=== PATIENT | male | born 1950 | race Caucasian/White ===

== ENCOUNTER → 2018-01-30 11:55 | Outpatient (CLI) | payer OTHER, SELFPAY | PROVIDERS: Family Provider Internal Medicine; PCP Internal Medicine | DX: R04.2 Hemoptysis (principal) | CPT/HCPCS: 71250 ==

== ENCOUNTER → 2019-12-16 12:43 | Outpatient (CLI) | payer OTHER, SELFPAY ==
[2019-12-01 13:48] VITALS: BMI 24.2
--- NOTE | 2019-12-16 12:43 | CDU_ITS ---
Reason For Study: Carotid stenosis Rt. Velocities/BP Lt. Velocities/BP Prox CCA 100.8/20 cm/sec. Prox CCA 115.6/24.3 cm/sec. Mid CCA 100.8/23.9 cm/sec. Mid CCA 106.5/24.3 cm/sec. Dist CCA 77.3/23.9 cm/sec. Dist CCA 80.9/24.3 cm/sec. Prox ICA 130.2/35.3 cm/sec. Prox ICA 64/14.6 cm/sec. Mid ICA 152.1/46.2 cm/sec. Mid ICA 99.8/26.2 cm/sec. Dist ICA 80.6/22.3 cm/sec. Dist ICA 86.1/33.5 cm/sec. Rt. ICA/CCA = 1.97. Lt. ICA/CCA = 0.9. Prox ECA 96.9/12.1 cm/sec. Prox ECA 97.4/12.6 cm/sec. Rt. Vert. 50.9/13.5 cm/sec. Lt. Vert. 61.7/15.4 cm/sec. Right Extracranial There is intimal thickening but no significant atherosclerotic plaque noted in the right common carotid artery. There is heterogeneous, irregular atherosclerotic plaque noted in the right internal carotid artery. There is intimal thickening but no significant atherosclerotic plaque noted in the right external carotid artery. Antegrade flow is noted in the right vertebral artery. Left Extracranial There is homogeneous, smooth atherosclerotic plaque noted in the left common carotid artery. There is heterogeneous, irregular atherosclerotic plaque noted in the left internal carotid artery. There is intimal thickening but no significant atherosclerotic plaque noted in the left external carotid artery. Antegrade flow is noted in the left vertebral artery. Procedure Carotid Duplex 28044. Exam performed in department. Interpretation Summary Irregular calcific plaque at the proximal right internal carotid artery with 50 to 69% stenosis. <50% stenosis right external carotid Irregular calcific plaque at the proximal left internal carotid artery with less than 50% stenosis. <50% stenosis left external carotid Patent and antegrade vertebrals bilaterally Ordering Physician: Segun Elias Referring Physician: [facility] Performed By: Daily Sellers RVT and Student
--- NOTE | 2019-12-16 12:43 | ECHOD_ITS ---
Reason For Study: Dyspnea/SOB Procedure This was a 2D Doppler, Color Flow transthoracic echocardiogram. Exam performed in department. Left Ventricle Mildly dilated left ventricle. The estimated ejection fraction is 65 %. Stage 1 diastolic dysfunction. No regional wall motion abnormalities noted. Right Ventricle Mildly dilated right ventricle. Normal systolic function. Atria Normal left atrium. Normal right atrium. Normal atrial septum. Mitral Valve The mitral valve is structurally normal. No prolapse or stenosis seen. Tricuspid Valve Normal tricuspid valve. Unable to estimate RV systolic pressure due to insufficient tricuspid regurgitant envelope. Aortic Valve Trisinus/trileaflet aortic valve. Mild focal aortic valve thickening. There is no aortic stenosis. Pulmonic Valve Normal pulmonic valve. Trivial pulmonic valve insufficiency. Great Vessels Normal aortic root. Normal arch. Normal inferior vena cava. Inferior vena cava collapse with sniff. Pericardium/Pleural No pericardial effusion. MMode/2D Measurements & Calculations LVIDd: 5.3 cm IVSd: 1.0 cm Ao root diam: 3.5 cm LVIDs: 3.1 cm LVPWd: 1.1 cm LA dimension: 3.6 cm RVDd: 3.8 cm FS: 42.2 % LAV(MOD-bp): 42.7 ml LA A4 area: 15.6 cm2 RA A4 area: 13.4 cm2 LAV(MOD-bp) Indexed: 22.2 ml/m2 LAV(MOD-sp2): 39.2 ml LAV(MOD-sp4): 36.5 ml Time Measurements MV dec time: 0.27 sec Doppler Measurements & Calculations MV E max laurent: 53.9 cm/sec Lat Peak E' Laurent: 8.5 cm/sec Med Peak E' Laurent: 8.4 cm/sec MV A max laurent: 68.5 cm/sec E/E' lat: 6.4 E/E' med: 6.4 MV E/A: 0.79 MV V2 max: 83.0 cm/sec MV P1/2t max laurent: 61.9 cm/sec Ao V2 max: 120.6 cm/sec MV max P.8 mmHg MV P1/2t: 119.0 msec Ao max P.8 mmHg MV V2 mean: 40.7 cm/sec MV dec slope: 152.4 cm/sec2 Ao V2 mean: 73.7 cm/sec MV mean P.77 mmHg MVA(P1/2t): 1.8 cm2 Ao mean P.5 mmHg MV V2 VTI: 22.0 cm Ao V2 VTI: 23.0 cm LV V1 max: 94.3 cm/sec PA V2 max: 114.6 cm/sec LV V1 max P.6 mmHg LV V1 mean P.5 mmHg LV V1 mean: 56.3 cm/sec LV V1 VTI: 17.4 cm Interpretation Summary The estimated ejection fraction is 65 %. Mildly dilated left ventricle. Stage 1 diastolic dysfunction. Mildly dilated right ventricle. Unable to estimate RV systolic pressure due to insufficient tricuspid regurgitant envelope. There is no aortic stenosis. There is no comparison study available. Ordering Physician: Segun Elias Referring Physician: Segun Elias Performed By: James Scherer RCS
== END ==
PROVIDERS: Referring Provider Internal Medicine Cardiovascular Disease; Visit Provider Internal Medicine Cardiovascular Disease
DX: R06.00 Dyspnea, unspecified (principal); I65.22 Occlusion and stenosis of left carotid artery; R06.02 Shortness of breath
CPT/HCPCS: 93306; 93880

== ENCOUNTER → 2019-12-22 10:17 | Outpatient (CLI) | payer OTHER, SELFPAY ==
[2019-12-01 13:48] VITALS: BMI 24.2
--- NOTE | 2019-12-22 10:17 | STE_ITS ---
Reason For Study: SOB/DYSPNEA Stress Results Protocol: Mauricio Protocol Maximum Predicted HR: 150 bpm Target HR: 128 bpm % Maximum Predicted HR: 99 % DurationHeart Rate Stage (mm:ss) (bpm) BP BASELINE 67 118/68 STAGE 1 3:00 106 130/56 STAGE 2 3:00 134 130/60 STAGE 3 1:32 148 / RECOVERY 78 130/62 Stress Duration: 7:32 mm:ss Maximum Stress HR: 148 bpm Baseline Echocardiogram Findings The estimated ejection fraction is 65 %. Stress Echo Wall motion Data Resting WM Intermediate WM Stress WM Resting Wall Motion Wall Motion Stress No regional wall motion No regional wall motion abnormalities noted. abnormalities noted. EKG Data The baseline ECG displays normal sinus rhythm. The patient exercised according to the regular Mauricio protocol for a total duration of 7:32. The maximum heart rate attained was 148 beats per minute. This was 98% of maximum predicted heart rate. The patient exercised into stage 3 of the Mauricio protocol. During stress, there were no ST or T wave changes noted to suggest ischemia. No arrhythmias noted. No clinical angina was noted. Interpretation Summary The estimated ejection fraction is 65 %. Normal, adequate, treadmill echocardiogram. Negative for ischemia by EKG and echocardiographic criteria. No anginal symptoms noted. Rare PVCs noted. Appropriate blood pressure response to exercise. Average exercise capacity for age. Test terminated due to attainment target heart rate and dyspnea. Final LVEF is 75%. No complications. Ordering Physician: Segun Elias Referring Physician: Segun Elias Performed By: Swati Sprague RDCS
== END ==
PROVIDERS: Referring Provider Internal Medicine Cardiovascular Disease; Visit Provider Internal Medicine Cardiovascular Disease
DX: R06.00 Dyspnea, unspecified (principal); E78.5 Hyperlipidemia, unspecified
CPT/HCPCS: 93017; 93350

== ENCOUNTER 2021-01-31 07:54 | Day surgery (SDC) | payer OTHER, SELFPAY ==
[2021-01-31 08:25] VITALS: BP 135/70; PULSE 82; RESP 16; TEMP 36.2; O2SAT 98; BMI 22.6
[2021-01-31] MEDS: Lactated Ringers 1,000 ML 100 ML IV (08:29)
--- NOTE | 2021-01-31 08:57 | PCM.HP.BLA ---
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 Is patient in pain?: No Allergies No Known Allergies Allergy (Verified 01/12/21 13:40) Medications multivitamin 1 tab PO DAILY 12/01/19 [History Confirmed 01/12/21] tamsulosin 0.4 mg capsule 0.4 mg PO QHS 12/01/19 [History Confirmed 01/12/21] aspirin 81 mg tablet,delayed release 81 mg PO DAILY 01/12/21 [History Confirmed 01/12/21] atorvastatin 40 mg tablet 40 mg PO DAILY 01/12/21 [History Confirmed 01/12/21] PFSH Medical History Anemia, mild Atonic bladder BPH (benign prostatic hyperplasia) Carotid artery stenosis Dyspnea Hemoptysis Hepatic cyst Hyperlipidemia Surgical History History of colonoscopy (~2007) History of foot surgery Family History Father Heart disease Mother Heart disease Brother CAD (coronary artery disease), Onset Age: 40 stent placement Social History Smoking Status: Former smoker how long ago did patient quit smokin years ago alcohol intake: current alcohol intake frequency: a few times a week Alcohol type: beer substance use type: does not use caffeine: Yes Type: coffee Number of servings: 1 what type of physical activity do you participate in: walking frequency: daily duration: 30-45 minutes/day HPI HPI HPI: WELLINGTON CHAVARRIA, is a 70 M who presents to the office today for colonoscopy. The patient reports his last colonoscopy was in 2007 and was normal. He has no abdominal pain or blood in his stool. He has no family history of colon cancer. ROS General General: No weight change, appetite, fatigue, colon cancer, breast cancer or weakness HEENT HEENT: No difficulty swallowing, eye injury, eye surgery, swollen glands or hoarseness Endo Endocrine: No thyroid disease, diabetes mellitus, thyroid cancer, Hair loss, heat intolerance or cold intolerance Skin Skin: No rash or changing moles Breast Breast: No left breast lump, right breast lump, nipple discharge, breast pain, abnormal mammogram, abnormal US or breast enlargement Musc Musculoskeletal: No back problems, arthritis, rheumatoid arthritis, gout or joint pain Cardio Cardiovascular: No murmur, pacemaker, heart disease, atrial fibrillation, high blood pressure, heart attack, heart stent, palpitations, shortness of breat with exertion or chest pain Psych Psychiatric: No depression, anxiety or hearing voices Resp Respiratory: No shortness of breath, No sleep apnea, No cough, No COPD, No asthma, No emphysema and No wheezing Gastro Gastrointestinal: No abdominal pain, No nausea or vomiting, No diarrhea, No constipation, No blood in stool, No acid reflux, No hemorrhoids, No ulcers, No gallbladder problem and No black,tarry stools Mariano Hematologic: No blood thinners, No blood disorders, No bleeding, No anemia and No blood clots Neuro Neurologic: No system reviewed and no additional complaints, except as documented, No as per HPI, No abnormal gait, No abnormal hearing, No abnormal movements, No abnormal speech, No behavioral changes, No burning sensations, No confusion, No convulsions, No disequilibrium, No dizziness, No localized weakness, No frequent falls, No headache(s), No lack of coordination, No loss of vision, No memory loss, No numbness, No other visual disturbances, No radicular pain, No restless legs, No sensory deficit, No syncope, No tingling, No tremor(s), No weakness and No other Exam Const General: cooperative Orientation: alert and oriented x3 HENMT Head: normal to inspection Neck Neck: normal visual inspection and full ROM Chest Chest palpation & inspection: normal inspection of the chest Resp Effort & Inspection: normal respiratory effort Auscultation: clear to auscultation bilaterally Cardio Rate: regular rate Rhythm: regular rhythm GI Inspection: non-distended Palpation: soft and nontender Skin General: no rashes or lesions noted Neuro General: patient alert and patient oriented x3 Extrem General: full ROM Psych Appearance: grossly normal Mental Status: mental status grossly normal Assessment and Plan Assessment and Plan (1) Screen for colon cancer: Status: Acute Orders: Orders: Colonoscopy Today Plan - Dr. Khurram Alfaro MD: Patient is due for screening colonoscopy. [facility]. I explained endoscopy in detail to the patient. I explained the risks including but not limited to stroke or heart attack with anesthesia, perforation of the GI tract, bleeding, infection. I explained that any of these could necessitate further emergency surgery. The patient understands and all questions were answered sufficiently. The patient wishes to proceed with procedure. Khurram Alfaro MD Pager: [facility] [address] [place] [address], [address] [place] [address] Office: I have re-examined the patient. There are no clinical changes since date of exam.
[2021-01-31 09:30] VITALS: BP 101/56; BP 135/70; PULSE 71; RESP 14; TEMP 36.2; O2SAT 99
--- NOTE | 2021-01-31 09:30 | OP.COLON_ITS ---
Patient Name: Amado Gallardo Procedure Date: 01/31/2021 8:59 AM Date of : 1950 Age: 70 Procedure: Colonoscopy Indications: Screening for colorectal malignant neoplasm Providers: Khurram Alfaro MD Medicines: Monitored Anesthesia Care Patient Profile: This is a 70 year old male. Refer to note in patient chart for documentation of history and physical. Last Colonoscopy: 10 years ago. Complications: No immediate complications. Procedure: Pre-Anesthesia Assessment: - Prior to the procedure, a History and Physical was performed, and patient medications and allergies were reviewed. The patient's tolerance of previous anesthesia was also reviewed. The risks and benefits of the procedure and the sedation options and risks were discussed with the patient. All questions were answered, and informed consent was obtained. Prior Anticoagulants: The patient has taken no previous anticoagulant or antiplatelet agents. After reviewing the risks and benefits, the patient was deemed in satisfactory condition to undergo the procedure. After I obtained informed consent, the scope was passed under direct vision. Throughout the procedure, the patient's blood pressure, pulse, and oxygen saturations were monitored continuously. The pediatric colonoscope was introduced through the anus and advanced to the cecum, identified by appendiceal orifice and ileocecal valve. The colonoscopy was performed without difficulty. The patient tolerated the procedure well. The quality of the bowel preparation was good. Scope In: 9:14:45 AM Scope Withdrawal Time 0 hours 6 minutes 6 seconds Scope Out: 9:27:03 AM Total Procedure Duration Time 0 hours 12 minutes 18 seconds Findings: The entire examined colon appeared normal on direct and retroflexion views. Impression: - The entire examined colon is normal on direct and retroflexion views. - No specimens collected. Recommendation: - Discharge patient to home. - Resume previous diet. - Continue present medications. - Repeat colonoscopy is not recommended due to current age (66 years or older) for screening purposes. Procedure Code(s): --- Professional --- G0121, Colorectal cancer screening; colonoscopy on individual not meeting criteria for high risk Diagnosis Code(s): --- Professional --- Z12.11, Encounter for screening for malignant neoplasm of colon CPT copyright 2017 [employer]. All rights reserved. The codes documented in this report are preliminary and upon feed adviser review may be revised to meet current compliance requirements. Khurram Alfaro MD 01/31/2021 9:29:20 AM This report has been signed electronically. Number of Addenda: 0 Note Initiated On: 01/31/2021 8:59 AM
--- NOTE | 2021-01-31 09:30 | OP.CCLET_ITS ---
01/31/2021 [facility] Re : Colonoscopy procedure for Amado jung [facility] This procedure was performed on Sunday, January 31, 2021. My impressions and recommendations are as follows: Impressions : - The entire examined colon is normal on direct and retroflexion views. - No specimens collected. Recommendations : - Discharge patient to home. - Resume previous diet. - Continue present medications. - Repeat colonoscopy is not recommended due to current age (66 years or older) for screening purposes. My findings are described in the full procedure note, which is enclosed. If I can be of further assistance, please feel free to contact me at Doctor phone number(s): , Work: . Sincerely, Khurram Alfaro MD 01/31/2021 9:29:20 AM This report has been signed electronically.
[2021-01-31 09:34] VITALS: BP 102/60; BP 135/70; PULSE 71; RESP 16; O2SAT 96
[2021-01-31 09:41] VITALS: BP 100/52; BP 135/70; PULSE 74; RESP 16; O2SAT 99
[2021-01-31 09:46] VITALS: BP 110/63; BP 135/70; PULSE 67; RESP 16; TEMP 36.8; O2SAT 94
[2021-01-31 10:04] VITALS: BP 135/70
== END 2021-01-31 10:12 | disposition home or self-care (01) ==
LOC: EN 07:55 → AC 07:56
PROVIDERS: Visit Provider Surgery
PROC: 0DJD8ZZ Inspection of Lower Intestinal Tract, Via Natural or Artificial Opening Endoscopic (ICD-10-PCS; CPT 45378; principal; 2021-01-31 08:55)
DX: Z12.11 Encounter for screening for malignant neoplasm of colon (principal); E78.5 Hyperlipidemia, unspecified; Z79.899 Other long term (current) drug therapy; Z87.891 Personal history of nicotine dependence
CPT/HCPCS: 45378; J7120; J2405

== ENCOUNTER 2021-07-10 09:09 | Outpatient (CLI) | payer OTHER, SELFPAY ==
[2021-07-10 10:24] LABS: Erythrocyte Sedimentation Rate < 1 mm/hr (0-20)
--- NOTE | 2021-07-10 10:28 | PFTCOMP ---
COMPLETE PULMONARY FUNCTION TEST INTERPRETATION Brief HPI: Patient is a 70 year old male, currently under the care of myself, who presents to [facility] for complete pulmonary function tests secondary to diagnosis of hemoptysis. Respiratory therapist reports good effort and reproducible results. Interpretation: Forced expiration spirometry shows no large airways obstructive ventilatory defect with an FEV1 of 92% predicted. There is no significant bronchodilator response by strict ATS criteria. Spirograms are of good quality and plateau normally. The respiratory flow volume loop shows a normal pattern. Lung volumes by body plethysmography show a normal total lung capacity at 5.92 L, 91% predicted. All other lung volumes are within normal limits. Diffusion capacity by carbon monoxide is normal at 105% predicted. The airway resistance is normal. No previous pulmonary function tests were available for review. Impression: These pulmonary function tests are within normal limits
[2021-07-10 10:54] LABS: CRP < 2.90 mg/L (0.0-3.0); Rheumatoid Factor < 10.0 IU/mL (<15)
[2021-07-11 17:03] LABS: ANTINUCLEAR ANTIBODIES DIRECT Negative (Negative)
[2021-07-11 21:07] LABS: Cytoplasmic Ab (C-ANCA) <1:20 titer (Neg:<1:20)
[2021-07-12 14:16] LABS: CCP IgG Antibodies 5 units (0-19); Perinuclear Ab (P-ANCA) <1:20 titer (Neg:<1:20)
== END 2021-07-10 23:59 | disposition home or self-care (01) ==
PROVIDERS: Referring Provider Internal Medicine Critical Care Medicine; Visit Provider Internal Medicine Critical Care Medicine
DX: R04.2 Hemoptysis (principal)
CPT/HCPCS: 36415; 85652; 86038; 86140; 86200; 86225; 86235; 86256; 86431; 94060; 94726; 94729

== ENCOUNTER → 2022-10-02 | Outpatient (CLI) | payer OTHER, SELFPAY ==
--- NOTE | 2022-10-02 14:05 | CT_ITS ---
INDICATION: CALCIFIED GRANULOMAS EXAMINATION: CT CHEST WITHOUT CONTRAST - CT Chest W/O Contrast Injection TECHNIQUE: Helically acquired images were obtained of the chest. A radiation dose optimization technique was used for this scan. IV Contrast dosage and agent: None. COMPARISON: None. FINDINGS: LUNGS, PLEURA AND LARGE AIRWAYS: Interval resolution of the previously seen areas of groundglass attenuation. New area of groundglass attenuation with developing consolidation in the posterior periphery of the right lower lobe. Associated 6 mm nodule in the periphery of this groundglass attenuation, axial image 64. Questionable trace groundglass attenuation posterolateral periphery of the left lower lobe, axial image 65. 2 mm nodule left lower lobe, axial image 68, unchanged compared to prior exam. 2 mm nodule right middle lobe, axial image 81. 2 mm nodule right middle lobe, axial image 83. Calcified granuloma right upper lobe. Several small areas of hyperlucency/cystic changes; left lower lobe axial image 63 left upper lobe, axial image 36. THYROID: No thyroid lesions. HEART AND PERICARDIUM: Heart size is normal. No pericardial effusion. VESSELS: Thoracic aorta is ectatic with 4 cm diameter ascending thoracic aorta. Moderate coronary calcifications and/or stents MEDIASTINUM AND ELBERT: No mediastinal or hilar adenopathy. Esophagus is unremarkable. No hiatal hernia. UPPER ABDOMEN: No acute pathology. 2.4 cm cyst left hepatic lobe and 9 mm cyst right hepatic lobe. Several tiny stones are seen in the neck of the gallbladder. Nonobstructing calcified 2 mm stone upper pole right kidney. Several calcifications in the spleen suggesting prior granulomatous infection. BONES: No suspicious lytic or blastic abnormality. CT/Chest without Contrast IMPRESSION: Interval resolution of previously seen groundglass opacities. New large area of groundglass opacity and associated developing consolidation, and a 6 mm nodule posterior periphery right lower lobe. This is favored to represent infectious etiology. Short-term follow-up imaging to ensure resolution is recommended in 3 months. Questionable groundglass opacity periphery left lower lobe. Few small, less than 2 cm in diameter pulmonary lucencies as above. Benign pulmonary nodules which no follow-up is recommended. 4 cm ectasia ascending thoracic aorta. Cholelithiasis without cholecystitis. Nonobstructing stone superior pole right kidney. Stigmata of prior granulomatous fraction. Electronically Signed: Oscar Mckinley DO at 22:05 EDT ,
== END | disposition home or self-care (01) ==
LOC: CT 14:02
DX: I77.810 Thoracic aortic ectasia (principal); K80.20 Calculus of gallbladder without cholecystitis without obstruction; N20.0 Calculus of kidney; R91.1 Solitary pulmonary nodule
CPT/HCPCS: 71250

== ENCOUNTER → 2023-01-26 | Outpatient (CLI) | payer OTHER, SELFPAY ==
--- NOTE | 2023-01-26 09:48 | CT_ITS ---
INDICATION: Hemoptysis EXAMINATION: CT CHEST WITHOUT CONTRAST - CT Chest W/O Contrast Injection TECHNIQUE: Helically acquired images were obtained of the chest. A radiation dose optimization technique was used for this scan. IV Contrast dosage and agent: None. COMPARISON: 10/02/2022 FINDINGS: LUNGS, PLEURA AND LARGE AIRWAYS: Lung windows show the lungs to be normally expanded. Stable 2 mm noncalcified nodules in the left lower lobe on axial image 70, and right middle lobe on axial images 78 and 80. Stable 4 mm noncalcified nodule in the right lower lobe on axial image 67. No suspicious new noncalcified mass or nodule. Previous airspace opacifications in the lingula and right lower lobe have improved but not completely resolved. No new organized infiltrate or effusion. THYROID: No thyroid lesions. HEART AND PERICARDIUM: Heart size is normal. No pericardial effusion. CORONARY ARTERIES: Coronary artery calcification is seen. VESSELS: Thoracic aorta is not dilated. MEDIASTINUM AND ELBERT: No suspicious mediastinal or hilar adenopathy. Esophagus is unremarkable. No hiatal hernia. UPPER ABDOMEN: Limited cuts through the upper abdomen show simple hepatic cysts. There is a nonobstructing right renal stone BONES: No suspicious lytic or blastic abnormality. Bony structures show degenerative change CT/Chest without Contrast IMPRESSION: Stable noncalcified nodules in the left lower lobe, right lower lobe, and right middle lobe. No interval change since 10/02/2022. Another six-month follow-up is recommended to assess stability. Previous described air space opacifications in the lingula and right lower lobe have improved but not completely resolved. Continued follow-up recommended to show complete resolution. No suspicious adenopathy Degenerative bony changes Electronically Signed: Emigdio Shaw MD at 10:59 EDT ,
== END | disposition home or self-care (01) ==
LOC: CT 09:33
PROVIDERS: Referring Provider Internal Medicine; Visit Provider Internal Medicine
DX: R04.2 Hemoptysis (principal)
CPT/HCPCS: 71250

== ENCOUNTER 2023-03-11 04:41 | Emergency (ER) | payer MEDICARE, SELFPAY ==
[2023-03-11 04:42] VITALS: BP 153/81; PULSE 83; RESP 16; TEMP 36.4; O2SAT 94; BMI 22.1
--- NOTE | 2023-03-11 05:01 | CT_ITS ---
EXAM: CT ANGIOGRAPHY CHEST, ABDOMEN AND PELVIS WITH INTRAVENOUS CONTRAST CLINICAL INDICATION: abd pain abd pain TECHNIQUE: Helically acquired angiography images were obtained of the chest, abdomen and pelvis with intravenous contrast. This CT exam was performed using one or more of the following dose reduction techniques: automated exposure control, adjustment of the mA and/or kV according to patient size, and/or use of iterative reconstruction technique. MIP reconstructed images were created and reviewed. CONTRAST: IV 100mL Isovue-370 RADIATION DOSE: CTDIvol = 4.48 mGy, DLP = 391.42 mGy-cm COMPARISON: CT scan chest 01/26/2023. FINDINGS: VASCULATURE: AORTA: There is mild atherosclerotic calcification of the thoracic aorta. There is mild atherosclerotic calcification of the abdominal aorta. Normal in caliber. No dissection. PULMONARY ARTERIES: Unremarkable. Normal in caliber. No obvious central pulmonary embolism although this study was not performed with the pulmonary embolism protocol. GREAT VESSELS OF AORTIC ARCH: Unremarkable. Normal in caliber. No dissection. CELIAC TRUNK AND MESENTERIC ARTERIES: No acute findings. No occlusion or significant stenosis. No dissection. RENAL ARTERIES: No acute findings. No occlusion or significant stenosis. No dissection. ILIAC ARTERIES: No acute findings. No occlusion or significant stenosis. No dissection. CHEST: LUNGS AND PLEURAL SPACES: There is atelectasis in the posterior lungs and lung bases, asymmetrically more prominent in the right lower lobe. Active right lower lobe pneumonia is not excluded entirely. There is a calcified pulmonary granuloma in the right upper lobe. No mass. No pleural effusion or thickening. HEART: There are coronary artery calcifications. Heart size is normal. No pericardial effusion. MEDIASTINUM: Unremarkable. No mediastinal or hilar adenopathy. Esophagus is unremarkable. No hiatal hernia. THYROID: Unremarkable. No thyroid lesions. ABDOMEN: LIVER: There are cysts in the right and left lobes of the liver. There is decreased attenuation of the liver consistent with fatty infiltration. GALLBLADDER AND BILE DUCTS: There are small calcified gallstones. No gallbladder distention or wall edema. No intra- or extrahepatic biliary ductal dilation. PANCREAS: Unremarkable. No focal cystic or solid mass. SPLEEN: Unremarkable. Normal size without focal cystic or solid mass. ADRENALS: Unremarkable. No nodules. KIDNEYS AND URETERS: There are small areas of cortical scarring in the right kidney. There is a 3 mm nonobstructive right renal calculus. There is mild hydronephrosis of the left kidney and there is left hydroureter. There is no demonstrated left urinary calculus. STOMACH AND BOWEL: There are colonic diverticula. There is no evidence for acute diverticulitis. No stomach or bowel distention. PELVIS: APPENDIX: No evidence of acute appendicitis. BLADDER: Urinary bladder contained 560 mL of urine at the time this exam. REPRODUCTIVE: Unremarkable as visualized. No mass. CHEST, ABDOMEN and PELVIS: INTRAPERITONEAL SPACE: Unremarkable. No ascites or other fluid collection. No free air. BONES/JOINTS: There are multilevel degenerative changes in the visualized spine. No suspicious lytic or blastic abnormality. SOFT TISSUES: Unremarkable. No discrete abdominal or pelvic wall hernia. LYMPH NODES: Unremarkable. No enlarged lymph nodes. CT/CTA Chst, Abd, Pel W and/or WO IMPRESSION: 1. No evidence for pulmonary embolism, aortic aneurysm, or aortic dissection. 2. No evidence for stenosis or occlusion of major abdominal or pelvic arteries. 3. Atelectasis in the posterior lung bases. Cannot exclude active right lower lobe pneumonia. 4. Mild hydronephrosis of left kidney without demonstrated left urinary calculus. Potential etiologies would include recent passage of a left ureteral calculus, pyelonephritis, vesicoureteral reflux, or left ureteral obstruction of indeterminate etiology. 5. Small nonobstructive right renal calculus. 6. Coronary artery atherosclerosis. 7. Gallstones. 8. Fatty liver. 9. Colonic diverticulosis without evidence for acute diverticulitis. Electronically Signed: Edvin Pak MD at 6:23 EDT ,
--- NOTE | 2023-03-11 05:03 | EKG12_ITS ---
Test Reason : ABD PAIN Blood Pressure : / mmHG Vent. Rate : 085 BPM Atrial Rate : 085 BPM P-R Int : 180 ms QRS Dur : 098 ms QT Int : 360 ms P-R-T Axes : 035 -02 020 degrees QTc Int : 428 ms Sinus rhythm with occasional Premature ventricular complexes Otherwise normal ECG Confirmed by AKOSUA AVINA, GLORIA ([id number]), continuity editor YOUNG REYES ([id number]) on 03/14/2023 11:30:17 AM Referred By: Confirmed By:GLORIA SOUTH MD
[2023-03-11] MEDS: 0.9% Normal Saline (1000mL) 1,000 ML 999 ML IV (05:06)
[2023-03-11] MEDS: Ondansetron 4 MG/2 ML Vial IV (05:06)
[2023-03-11] MEDS: Morphine 4 MG/ML Syringe IV (05:10)
[2023-03-11 05:14] VITALS: BP 130/67; PULSE 86; RESP 20; TEMP 36.4; O2SAT 95
[2023-03-11 05:17] LABS: Absolute Lymphocyte Count 2.51 X10^3/uL (0.83-4.51); Absolute Neutrophil Count 3.6 X10^3/uL (2.0-7.7); Basophil# 0.12 X10^3/uL; Basophil% 1.5 % (0-1); Eosinophils% 3.8 % (0-5); Hematocrit 32.8 % (40-54); Hemoglobin 10.8 g/dL (13.0-16.5); Lymphocyte # 2.51 X10^3/ul (0.83-4.51); Lymphocyte % 31.9 % (19-41); Mean Corp Hgb Conc 32.9 g/dL (32-36); Mean Corpuscular Hgb 33.8 pg (27.0-32.0); Mean Corpuscular Volume 102.5 fL (80-94); Mean Platelet Vol. 9.4 fl (6.2-12.0); Monocyte# 1.33 X10^3/uL; Monocyte% 16.9 % (0-10); NRBC Flagged by Analyzer 0.3 % (0-5); Neutrophil # 3.55 X10^3/uL (2.7-7.7); Neutrophil % 45.3 % (47-70); Platelet Count 401 K/mm3 (150-450); RBC Distribution Width CV 16.7 % (11.6-14.6); RBC Distribution Width SD 61.7 fl (35.1-43.9); White Blood Count 7.9 K/mm3 (4.4-11.0)
[2023-03-11 05:19] VITALS: O2SAT 87; O2SAT 94
[2023-03-11 05:26] LABS: Prothrombin Time (Protime)PT. 12.9 SECONDS (11.7-14.9)
[2023-03-11 05:36] LABS: AST(SGOT) 17 U/L (15-37); Alanine Aminotransfer ALT/SGPT 25 U/L (16-61); Albumin, Serum 3.9 g/dL (3.2-5.0); Alkaline Phosphatase 62 U/L (45-117); Anion Gap 5 (5-15); BUN 18 mg/dL (7-18); BUN/Creat Ratio 24.3 RATIO (10-20); Bilirubin, Direct 0.32 mg/dL (0.00-0.30); Calcium,Total 8.6 mg/dL (8.5-10.1); Chloride 109 mmol/L (98-107); Creatinine, Serum 0.74 mg/dL (0.70-1.30); EST Glomerular Filtration Rate 110 mL/min (>60); Est Glom Filt Rate - Afr Amer 133 mL/min (>60); Estimated Creatinine Clearance 65.14 ml/min; Globulin 2.8 g/dL (2.2-4.2); Glucose 98 mg/dL (74-106); Lipase 37 U/L (13-75); Potassium 4.1 mmol/L (3.5-5.1); Protein, Total 6.7 g/dL (6.4-8.2); Sodium Level 143 mmol/L (136-145); Troponin-I HS 6 pg/mL (3.0-78.0)
[2023-03-11 05:45] LABS: Lactic Acid 0.7 mmol/L (0.4-1.9)
--- NOTE | 2023-03-11 05:46 | EX.ED.DYSGE1 ---
HPI History of Present Illness Chief Complaint: Abd Pain Informant: patient and spouse/S.O. Narrative Narrative: Patient is a 72-year-old male with past medical history of hyperlipidemia as well as underlying lung disorder causing hemoptysis. He states that he went to bed feeling normal then awoke from sleep around 3:30-4:00 in the morning and noticed just a mild amount of midepigastric abdominal pain. He states that as time passed the pain grew more and more intense and he describes it as sharp and stabbing in nature. He denies any recent trauma or excessive activity. He states that there is no radiation of the pain and he denies any nausea or vomiting associated with this. He states he was unsure if this could potentially be cardiac event and with concern for this comes in for evaluation. [facility] Medical History Anemia, mild Atonic bladder BPH (benign prostatic hyperplasia) Cardiology follow-up encounter Carotid artery stenosis Dyspnea Former smoker Hemoptysis Hepatic cyst High cholesterol History of echocardiogram Hyperlipidemia Prostate disease Wears glasses Home Medications tamsulosin 0.4 mg capsule 0.4 mg PO QHS 12/01/19 [History Last Taken Unknown] atorvastatin 40 mg tablet 40 mg PO DAILY 01/12/21 [History Last Taken Unknown] Allergy/AdvReac Type Severity Reaction Status Date / Time No Known Allergies Allergy Verified 12/05/21 09:40 Family History Father Heart disease Mother Heart disease Brother CAD (coronary artery disease), Onset Age: 40 stent placement Surgical History History of colonoscopy (~2007) History of foot surgery Social History Smoking Status: Former smoker how long ago did patient quit smokin years ago alcohol intake: current alcohol intake frequency: a few times a week Alcohol type: beer substance use type: does not use caffeine: Yes Type: coffee Number of servings: 1 what type of physical activity do you participate in: walking frequency: daily duration: 30-45 minutes/day ROS ROS ED Constitutional Constitutional ED: Denies chills or fever(s) Eyes Eyes: Denies change in vision ENT ENT ED: Denies sore throat Cardiovascular Cardiovascular: Denies chest pain Respiratory/Chest Respiratory/Chest: Reports cough; Denies dyspnea Gastrointestinal Gastrointestinal: Reports abdominal pain; Denies diarrhea, nausea or vomiting Genitourinary Genitourinary ED: Denies dysuria Musculoskeletal Musculoskeletal: Denies back pain or myalgias Integumentary Denies rash Neurologic Neurologic: Denies headache(s) Hematologic/Lymphatic Hematologic/Lymphatic: Denies easy bleeding or easy bruising EXAM Physical Exam Const Vital Signs: 03/11/23 04:42 03/11/23 05:14 03/11/23 05:19 Temperature 97.6 F L 97.6 F L Temperature Source Oral Oral Pulse Rate 83 86 Respiratory Rate 16 20 H Blood Pressure 153/81 H 130/67 H Blood Pressure Mean 105 88 Pulse Ox 94 95 87 Oxygen Delivery Method Room Air Room Air Room Air Oxygen Flow Rate (L/min) 03/11/23 05:19 03/11/23 06:00 Temperature 98 F Temperature Source Oral Pulse Rate 77 Respiratory Rate 16 Blood Pressure 143/72 H Blood Pressure Mean 95 Pulse Ox 94 93 Oxygen Delivery Method Nasal Cannula Nasal Cannula Oxygen Flow Rate (L/min) 2 2 Positive well nourished and well developed General Appearance ED: well developed; Negative for pallor HEENT HEENT Narrative: Normocephalic atraumatic Eyes PERRL and EOMs intact bilaterally General Eye ED: Negative for scleral icterus Neck supple and no JVD Neck Narrative: No nuchal rigidity or meningeal signs noted Chest Wall palpation of chest normal Chest Narrative: No bony deformity or crepitance Resp normal respiratory effort and clear to auscultation bilaterally Cardio regular rate and regular rhythm Rate: other Other Details: Radial and carotid pulses equal and symmetric No murmurs rubs or gallops GI non-distended GI Narrative: Abdomen is soft and nondistended with normal active bowel sounds. There is just faint pain present in the midepigastric region without voluntary guarding or rigidity. No hernia noted. No pulsatile mass or fluid wave. Auscultation: normoactive bowel sounds Palpation: soft Back/Spine no CVA tenderness Extremity normal to inspection Extremity Narrative: No asymmetric edema no pitting edema negative Homans' sign bilaterally Neuro oriented x3, CN's II-XII intact bilaterally and no sensory deficits noted Sensorium / Orientation: alert Motor Exam: strength 5/5 throughout Psych mental status grossly normal Skin no rashes or lesions noted General Skin Exam: Negative for jaundice or pallor MDM MDM MDM Narrative Medical decision making narrative: Patient presented to the ER mildly hypertensive but otherwise with stable vitals. He reported sudden onset of midepigastric pain but on palpation there is minimal reproduction of the pain. With concern that this was pain at proportion and could be related to mesenteric ischemia or potential aortic dissection I did elect to perform basic laboratory studies and a CTA of the chest abdomen pelvis. There is also concern that as the pain is in the upper abdomen/lower chest this could be acute coronary syndrome or even potentially biliary colic or pancreatitis. Labs revealed no clinically significant findings. Patient's troponin was normal at a value of 6 and EKG was sinus rhythm going against acute coronary syndrome. Patient's lipase was normal and CT scan did not reveal any inflammatory changes of the pancreas going against pancreatitis. Patient CTA did not reveal any type of dissection or obstruction. Lactic acid was normal to going against ischemic changes. There is incidental note of cholelithiasis but no secondary changes to suggest acute cholecystitis. The patient did have mild elevation to his direct and total bilirubin which could indicate that this was potential biliary colic. However this time the patient is pain-free vitals are stable and therefore there is no signs of secondary infection or cardiac event or vascular issue he can be discharged home and follow-up with his family doctor on outpatient basis to further assess the cause of his abdominal pain and new founded cholelithiasis. History & Record Review Discussion w/independent historian: Patient and Significant other Lab Data Attestation: I reviewed the patient's lab results. Labs: Laboratory Results - last 24 hr 03/11/23 03/11/23 03/11/23 04:48 05:15 06:22 WBC 7.9 RBC 3.20 L Hgb 10.8 L Hct 32.8 L MCV 102.5 H MCH 33.8 H MCHC 32.9 RDW Std Deviation 61.7 H RDW Coeff of Jose 16.7 H Plt Count 401 MPV 9.4 Immature Gran % (Auto) 0.600 Neut % (Auto) 45.3 L Lymph % (Auto) 31.9 [place] % (Auto) 16.9 H Eos % (Auto) 3.8 Baso % (Auto) 1.5 H Absolute Neuts (auto) 3.6 Absolute Lymphs (auto) 2.51 Nucleated RBC % 0.3 PT 12.9 INR 1.0 APTT 31.0 Sodium 143 Potassium 4.1 Chloride 109 H Carbon Dioxide 29.0 Anion Gap 5 BUN 18 Creatinine 0.74 Estim Creat Clear Calc 65.14 Est GFR (MDRD) Af Amer 133 Est GFR (MDRD) Non-Af 110 BUN/Creatinine Ratio 24.3 H Glucose 98 Lactic Acid 0.7 Calcium 8.6 Total Bilirubin 1.10 H Direct Bilirubin 0.32 H AST 17 ALT 25 Alkaline Phosphatase 62 Troponin I High Sens 6 Total Protein 6.7 Albumin 3.9 Globulin 2.8 Lipase 37 Urine Color Yellow Urine Clarity Clear Urine pH 7.0 Ur Specific Ripley 1.010 Urine Protein Negative Urine Glucose (UA) Normal Urine Ketones Negative Urine Occult Blood Negative Urine Nitrite Negative Urine Bilirubin Negative Urine Urobilinogen Normal Ur Leukocyte Esterase Negative Urine RBC 0 SEEN Urine WBC 0 SEEN Ur Squamous Epith Cells 0 SEEN Urine Bacteria 0 SEEN Urine Mucus 0 SEEN Radiography Diagnostic Testing: Clinical Impression(s) from Imaging Studies Chest/Abdomen/Pelvis CTA 03/11/23 05:01 IMPRESSION: 1. No evidence for pulmonary embolism, aortic aneurysm, or aortic dissection. 2. No evidence for stenosis or occlusion of major abdominal or pelvic arteries. 3. Atelectasis in the posterior lung bases. Cannot exclude active right lower lobe pneumonia. 4. Mild hydronephrosis of left kidney without demonstrated left urinary calculus. Potential etiologies would include recent passage of a left ureteral calculus, pyelonephritis, vesicoureteral reflux, or left ureteral obstruction of indeterminate etiology. 5. Small nonobstructive right renal calculus. 6. Coronary artery atherosclerosis. 7. Gallstones. 8. Fatty liver. 9. Colonic diverticulosis without evidence for acute diverticulitis. Electronically Signed: Edvin Pak MD at 6:23 EDT , Discharge Plan Triage Chief Complaint: Abd Pain ED Provider: Jean Claude Howell Dx/Rx/DC Orders Clinical Impression: Nonspecific abdominal pain, Hydronephrosis of left kidney, Cholelithiasis Instructions: ED Abdominal Pain Gallstone Poss Prescriptions: No Action tamsulosin 0.4 mg capsule 0.4 mg PO QHS atorvastatin 40 mg tablet 40 mg PO DAILY Primary Care Provider: Hospital,MD Referrals: Hospital,MD [Primary Care Provider] - Activity Restrictions/Additional Instructions: Please follow-up with your family doctor to discuss obtaining outpatient gallbladder ultrasound and/or HIDA scan. Your CT scan today did show a few small gallbladder stones and there is slight elevation to your total and direct bilirubin which could be related to potential gallstone or gallbladder disease. Please avoid greasy fatty foods as this could stimulate gallbladder irritation. If you have worsening of symptoms or any further concerns please return to the ER for repeat evaluation Disposition Disposition: Home, Self Care
[2023-03-11 06:00] VITALS: BP 143/72; PULSE 77; RESP 16; TEMP 36.6; O2SAT 93
[2023-03-11 06:26] LABS: Bacteria 0 SEEN /hpf (None Seen); Mucous, Urine 0 SEEN /hpf (<or=2+); Red Blood Cells-Urine 0 SEEN /hpf (0-5); Squamous Epithelial Cells - UA 0 SEEN /hpf (0-5); White Blood Cells 0 SEEN /hpf (0-5)
[2023-03-11 06:35] LABS: Color, Urine Yellow (Yellow); Glucose, Dipstick Normal (Normal); Ketone-Dipstick Negative (Negative); Leukocyte Esterase-Dipstick Negative /ul (Negative); Nitrite-Dipstick Negative (Negative); Occult Blood-Urine Negative /ul (Negative); Protein-Dipstick Negative (Negative); Urine Bilirubin Dipstick Negative (Negative); Urine Clarity Clear (Clear); Urine Urobilinogen Normal (Normal)
[2023-03-11 07:20] VITALS: BP 128/78; PULSE 64; RESP 14; TEMP 36.4; O2SAT 99
== END 2023-03-11 07:20 | disposition home or self-care (01) ==
PROVIDERS: Emergency Provider Emergency Medicine; Visit Provider Emergency Medicine
DX: R10.13 Epigastric pain (principal); N13.30 Unspecified hydronephrosis; K80.20 Calculus of gallbladder without cholecystitis without obstruction; E78.00 Pure hypercholesterolemia, unspecified; N40.0 Benign prostatic hyperplasia without lower urinary tract symptoms; Z79.899 Other long term (current) drug therapy; Z87.891 Personal history of nicotine dependence
CPT/HCPCS: 71275; 74174; 80048; 80076; 81001; 83605; 83690; 84484; 85025; 85610; 85730; 93005; 96361; 96374; 96375; 99283; J7030; Q9967; A4216; J2405

== ENCOUNTER → 2023-05-10 | Outpatient (CLI) | payer OTHER, SELFPAY ==
--- NOTE | 2023-05-12 15:57 | STRESSREP_ITS ---
Stress Test Report Date: 05/10/2023 Procedure: Exercise tolerance test/imaging study Indications: CAD Consent: Per the patient Procedure: The patient exercised on a Mauricio protocol for 6 minutes achieving a peak heart rate of 150 bpm (102% predicted maximal heart rate) with a peak blood pressure 140/68 mmHg and a peak MET capacity of 7 METs. The baseline ECG demonstrated normal sinus rhythm. The peak exercise ECG demonstrated [no significant ischemic changes]. EKG during recovery revealed no significant ischemic changes [There were no cardiac dysrhythmias pretest, during exercise, or recovery]. The functional capacity was considered normal for age. There was [no complaint of chest discomfort during exercise or recovery]. The examination was discontinued secondary to dyspnea. Impression: 1. Technically adequate (percent predicted maximal heart rate greater than 85%) exercise tolerance test 2. Stress test is negative for exercise-induced EKG changes of ischemia 3. The test test is negative for exercise-induced chest pain 4. Functional capacity is normal for age 5. Nuclear images pending Myocardial perfusion imaging study: Technique: The patient was injected with [] mCi of technetium 99m Cardiolite and subsequently rest SPECT Cardiolite nuclear imaging was obtained in the horizontal long, vertical long, and short axis views. The patient exercised on a Mauricio protocol. Please see above for details. The patient was injected with [] mCi of technetium 99m Cardiolite and subsequently stress SPECT Cardiolite nuclear imaging was obtained in the horizontal long, vertical long, and short axis views. A gated Cardiolite study at peak stress was obtained. Interpretation: Rest and stress SPECT Cardiolite nuclear imaging status post realignment, normalization, and attenuation correction, demonstrates [no evidence of significant ischemia or infarction]. The gated Cardiolite study demonstrates [no significant regional wall motion abnormalities]. The reported LVEF is 70%. Impression: 1. There is no evidence of significant ischemia or infarction. 2. The gated Cardiolite study reports an LVEF of 70%. This note was generated with DRESSBOOMation software. It may contain incorrect words, spelling, and punctuation that were not noted in checking the note before signing.
== END | disposition home or self-care (01) ==
LOC: CVS 06:49
PROVIDERS: Referring Provider Internal Medicine; Visit Provider Internal Medicine
DX: I25.10 Atherosclerotic heart disease of native coronary artery without angina pectoris (principal)
CPT/HCPCS: 78452; 93017; A9500; A4216

== ENCOUNTER → 2024-06-15 | Outpatient (CLI) | payer OTHER, SELFPAY ==
--- NOTE | 2024-06-15 14:39 | CT_ITS ---
ACR Level 3 findings have been noted. An addendum which confirms receipt of the report will follow. HISTORY: Abnormal weight loss. TECHNIQUE: Helically acquired images were obtained of the chest, abdomen, and pelvis after the intravenous administration of 75 mL Isovue-370. Oral contrast also administered. 2-D reformatted images provided. A radiation dose optimization technique was used for this scan. 1244 images. COMPARISON: 03/11/2023 FINDINGS: ----Chest: LARGE AIRWAYS: Patent. LUNGS: Chronic calcified right upper lobe granuloma. New noncalcified nodules measuring up to 2 mm in the right upper and middle lobes. Groundglass opacities with mild septal thickening in the right lower lobe with multiple nodules measuring up to 10 mm. Multiple left upper lobe nodules measuring up to 8 mm medially adjacent to the heart border. Multiple left lower lobe nodules measuring up to 7 mm. Mild left lower lobe groundglass opacity. Scattered small blebs. PLEURA: No pneumothorax or significant pleural effusion. HEART AND PERICARDIUM: Heart within normal limits in size, with coronary artery calcification. No significant pericardial effusion. VESSELS: No thoracic aortic aneurysm or dissection flap. Atherosclerosis present. MEDIASTINUM AND ELBERT: Mildly enlarged lymph nodes measuring up to 1.4 cm left supraclavicular and 1.5 cm right superior mediastinal. Mildly prominent right hilar, subcarinal, and right paraesophageal lymph nodes. Small calcified precarinal and right hilar lymph nodes. BONES: Degenerative change and osteopenia. Chronic small T10 bone island. ----Abdomen/Pelvis: BOWEL: Bowel nondilated. Appendix not visualized. Moderate stool in the colon. Colonic diverticulosis without focal inflammatory change. PERITONEUM: No significant ascites. LIVER: Multiple heterogeneous masses measuring up to 3.3 cm in the right lobe. 1.2 cm right and 2.6 cm left lobe cysts again seen. GALLBLADDER/BILIARY TREE: Small calcified gallstones. SPLEEN: Not enlarged. Calcified granulomas. PANCREAS: 1.3 x 1.5 cm hypoenhancing ill-defined lesion in the body KIDNEYS: 2 mm right upper pole calculus without hydronephrosis. Chronic mild fullness of the left renal collecting system from chronic mild hydronephrosis or renal sinus cysts. ADRENAL GLANDS: No nodules. VESSELS: No abdominal aortic aneurysm. Mild atherosclerosis. 1 x 1.6 cm aortocaval lymph node. PELVIC ORGANS: Unremarkable. BONES: Mild degenerative change. Chronic small bone islands of the pelvis and hips. CT/CT Chest, Abd, Pel w/Contrast IMPRESSION: Multiple new pulmonary nodules measuring up to 10 mm, concerning for pulmonary metastases. Mild pneumonia or pneumonitis in the lower lobes. Mild left supraclavicular and mediastinal lymphadenopathy, also concerning for metastasis. Multiple new liver masses, concerning for metastases. 1.5 cm pancreatic mass, suspicious for malignancy with mild retroperitoneal lymphadenopathy. Cholelithiasis. Right nephrolithiasis. Electronically Signed: Cammy Douglass MD at 15:16 EST ,
== END | disposition home or self-care (01) ==
LOC: CT 14:37
PROVIDERS: Referring Provider Internal Medicine; Visit Provider Internal Medicine
DX: R63.4 Abnormal weight loss (principal)
CPT/HCPCS: 71260; 74177; Q9967

== ENCOUNTER 2024-07-30 10:29 | Day surgery (SDC) | payer OTHER, SELFPAY ==
--- NOTE | 2024-07-28 09:13 | PAT.ANE_ITS ---
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 When Was Last Pacemaker Check QUESTION #4 FULL TEXT: You/Your Family Experience fever (hyperthermia) with Anesthesia Last Oral Intake Last Oral intake: Last Oral Intake NPO since Meds taken in AM with sips of water? Meds patient instructed to take am of surgery PONV PONV - associate professor of geography: PONV - associate professor of geography Female No 07/28/24 08:43 HX of Motion Sickness No 07/28/24 08:43 HX of N/V After Surgery No 07/28/24 08:43 Non-Smoker Yes 07/28/24 08:43 Duration of Surgery greater No 07/28/24 08:43 than 60 minutes Number of Risk Factors 1 07/28/24 08:43 PONV Score Low Risk 07/28/24 08:43 Height & Weight Height & Weight: Anesthesia: Height & Weight Height 5 ft 10 in 07/20/24 09:23 Respiratory Assessment Respiratory Assessment - associate professor of geography: Respiratory Tract Infection Hx - associate professor of geography Hx Respiratory Tract Infection No 07/28/24 08:43 STOP Sleep Apnea STOP Sleep Apnea - associate professor of geography: STOP Sleep Apnea - associate professor of geography Hx Hypertension No 07/28/24 08:43 Hx Sleep Apnea No 07/28/24 08:43 CPAP No 01/31/21 09:30 BIPAP Do you snore loudly (louder No 07/28/24 08:43 than talking or can be heard Do you often feel tired/ No 07/28/24 08:43 fatigued/ sleepy during daytime? Has anyone observed you stop No 07/28/24 08:43 breathing during sleep? STOP Results Negative 07/28/24 08:43 QUESTION #5 FULL TEXT : Do you snore loudly (louder than talking or can be heard through closed doors)? 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 Specify any problems Hx of Preganancy in last 3 N/A 07/28/24 08:43 Months Nurse Filling Out Transfusion [email or web address] 07/28/24 08:43 & Questions: Date: 07/28/24 07/28/24 08:43 Time: 08:46 07/28/24 08:43 Patient unable to answer at this time (ie. 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 Regional lymph node metastasis present Esophageal cancer Pancreatic cancer CAD (coronary artery disease) Cough with hemoptysis Wears glasses Prostate disease High cholesterol Former smoker History of echocardiogram Cardiology follow-up encounter Screen for colon cancer Hepatic cyst Carotid artery stenosis Dyspnea Anemia, mild Atonic bladder BPH (benign prostatic hyperplasia) Hyperlipidemia Hemoptysis Home Medications ?Medication ?Instructions ?Recorded ?Last Taken ?Type atorvastatin 40 mg tablet 40 mg PO DAILY 01/12/2110/18 History latanoprost 0.005 % eye drops 1 drp ophthalmic (eye) Q DAY 07/14/24 07/29/24 History lidocaine-prilocaine 2.5 %-2.5 % 1 applic topical ONCE PRN port 07/27/24 Unknown Rx topical cream access 30 days #30 grams ondansetron 8 mg disintegrating 8 mg PO Q8H PRN nausea and 07/27/24 Unknown Rx tablet vomiting #30 tabs prochlorperazine maleate 10 mg 10 mg PO Q6H PRN nausea and 07/27/24 Unknown Rx tablet vomiting #30 tabs Allergy/AdvReac Type Severity Reaction Status Date / Time No Known Allergies Allergy Verified 07/30/24 11:03 Family History Father Heart disease CHF (congestive heart failure) Myocardial infarction 60 Mother Heart disease CHF (congestive heart failure) Brother CAD (coronary artery disease), Onset Age: 40 stent placement Bladder cancer Brother CVA (cerebral vascular accident) Surgical History History of foot surgery History of colonoscopy (~2007) Social History Smoking Status: Former smoker alcohol intake: current alcohol intake frequency: a few times a week Alcohol type: beer substance use type: does not use caffeine: Yes Type: coffee Number of servings: 1 what type of physical activity do you participate in: walking frequency: daily duration: 30-45 minutes/day Audit: Pertinent Findings Pertinent Findings EKG Perinent findings: March 11, 2023. Sinus rhythm with occasional PVCs. Stress test pertinent findings: May 10, 2023. No evidence of significant ischemia or infarction. Ejection fraction 70%. Echo (EF%) pertinent findings: December 16, 2019. Ejection fraction 65%. No aortic stenosis noted. Consult pertinent findings: December 01, 2019. Dr. Elias. 1. Dyspnea-patient is having progressive dyspnea on exertion of new onset. Plan for 2D echo to assess LV function, pulmonary pressures and valvular status. Plan for thread mill echo evaluate blood pressure response to exercise ischemia and capacity. If either of these are abnormal we will progress to coronary angiogram. (See above) Recommendation Anesthesia Recommendation Anesthesia recommendation: OPTIMIZED for anesthesia
[2024-07-30] VITALS (7 sets, daily range): BP systolic 105–120; BP diastolic 59–65; PULSE 68–76; RESP 16–20; TEMP 36.3–36.6; O2SAT 97–100; BMI 18.0
--- NOTE | 2024-07-30 11:30 | HP.PCM_ITS ---
HPI - General General Date of Admission: 07/30/24 Date of Service: 07/30/24 Chief Complaint: Mediport placement HPI Narrative WELLINGTON CHAVARRIA, is a 73 M who presents to have a left-sided Mediport placed. He was recently diagnosed with metastatic cancer. His oncology team is recommending chemotherapy which is to begin next week. He was seen in the office. 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 Regional lymph node metastasis present Esophageal cancer Pancreatic cancer CAD (coronary artery disease) Cough with hemoptysis Wears glasses Prostate disease High cholesterol Former smoker History of echocardiogram Cardiology follow-up encounter Screen for colon cancer Hepatic cyst Carotid artery stenosis Dyspnea Anemia, mild Atonic bladder BPH (benign prostatic hyperplasia) Hyperlipidemia Hemoptysis Home Medications ?Medication ?Instructions ?Recorded ?Last Taken ?Type atorvastatin 40 mg tablet 40 mg PO DAILY 01/12/2110/18 History latanoprost 0.005 % eye drops 1 drp ophthalmic (eye) Q DAY 07/14/24 07/29/24 History lidocaine-prilocaine 2.5 %-2.5 % 1 applic topical ONCE PRN port 07/27/24 Unknown Rx topical cream access 30 days #30 grams ondansetron 8 mg disintegrating 8 mg PO Q8H PRN nausea and 07/27/24 Unknown Rx tablet vomiting #30 tabs prochlorperazine maleate 10 mg 10 mg PO Q6H PRN nausea and 07/27/24 Unknown Rx tablet vomiting #30 tabs Allergy/AdvReac Type Severity Reaction Status Date / Time No Known Allergies Allergy Verified 07/30/24 11:03 Family History Father Heart disease CHF (congestive heart failure) Myocardial infarction 60 Mother Heart disease CHF (congestive heart failure) Brother CAD (coronary artery disease), Onset Age: 40 stent placement Bladder cancer Brother CVA (cerebral vascular accident) Surgical History History of foot surgery History of colonoscopy (~2007) Social History Smoking Status: Former smoker alcohol intake: current alcohol intake frequency: a few times a week Alcohol type: beer substance use type: does not use caffeine: Yes Type: coffee Number of servings: 1 what type of physical activity do you participate in: walking frequency: daily duration: 30-45 minutes/day Vital Signs Vital Signs Vital Signs: 07/30/24 11:05 07/30/24 11:05 Temperature 97.3 F L Temperature Source Temporal Pulse Rate 76 Respiratory Rate 16 Respiratory Pattern Normal Blood Pressure 119/63 Blood Pressure Mean 81 Blood Pressure Source Monitor Blood Pressure Position Semi-Fowlers Blood Pressure Location Right Arm Pulse Ox 98 Oxygen Delivery Method Room Air Weight Weight: 125 lb 10.616 oz Body Mass Index (BMI) 18.0 Physical Exam Const alert, oriented x3 and no apparent distress Assessment & Plan Assessment/Plan (1) Metastasis to liver: PLAN: Plan The patient is a 73-year-old male in need of a Mediport placement. We discussed the details of the planned procedure and he wishes to proceed. Surgery will again shortly Charges/Coding Visit Charges Inpatient E&M: 31718 Init Hosp L1
--- NOTE | 2024-07-30 11:45 | PRE.ANES_ITS ---
ASA Classification* ASA Classification ASA Classification: 3 Assessment & Plan Anesthesia* Anesthesia Assessment Anesthesia Assessment: Discussed sedation and/or anesthesia options, risks, benefits, and alternatives with patient/parents/legal guardian/POA. Questions invited. The patient/parents/legal guardian/POA seems to understand and agrees to proceed with anesthesia plan. Reviewed the physical assessment, medical history, allergy history and patient home medications list prior to surgery/procedure/anesthetic and documented any changes. Performed airway and anesthesia risk assessments. Anesthesia Type Anesthesia Type: MAC History Source History Obtained from:: Patient and Chart Anesthesia Focused Assessment* Temperature: 97.3 F Pulse Rate: 76 Blood Pressure: 119/63 Respiratory Rate: 16 Pulse Ox: 98 Oxygen Delivery Method: Room Air Airway Assessment Mouth opens: >3 cm Mallampati Score: I Teeth Condition: Missing (Patient has had a couple pulled molars.) Neck Range of motion (ROM): Full ROM Focused Labs Anesthesia Preop lab: CBC WBC 12.8 K/mm3 (4.4-11.0) H 07/20/24 10: 5 RBC 2.61 M/mm3 (4.6-6.2) L 07/20/24 10:20 07/20/24 Hgb 8.1 g/dL (13.0-16.5) L 07/20/24 10:20 07/20/24 Hct 26.0 % (40-54) L 07/20/24 10:20 07/20/24 Plt Count 619 K/mm3 (150-450) H 07/20/24 10:20 07/20/24 CHEMISTRY Potassium 3.8 mmol/L (3.5-5.1) 07/20/24 10:20 07/20/24 Sodium 138 mmol/L (136-145) 07/20/24 10:20 07/20/24 BUN 17 mg/dL (7-18) 07/20/24 10:20 07/20/24 Creatinine 0.79 mg/dL (0.70-1.30) 07/20/24 10:20 07/20/24 Glucose 113 mg/dL (74-106) H 07/20/24 10:20 07/20/24 COAG PT 12.9 SECONDS (11.7-14.9) 03/11/23 04:48 Pre-Assessment Diagnosis/Proposed Procedure Planned Operative Procedure(s): INSERTION VASCULAR PORT Anesthesia History Anesthesia History - sourcing consultant: Anesthesia History - sourcing consultant Hx Hospitalization No 07/28/24 08:43 Any Problems With Anesthesia No 07/28/24 08:43 Cholinesterase deficiency No 07/28/24 08:43 You/Your Family Experience No 07/28/24 08:43 fever (hyperthermia) with Relationship Recent Exposure to Contagious No 07/30/24 11:05 Disease Does patient have nerve No 07/28/24 08:43 stimulator Patient instructed to have device shut off --Does patient have Pacemaker No 07/30/24 11:05 or ICD? When Was Last Pacemaker Check QUESTION #4 FULL TEXT: You/Your Family Experience fever (hyperthermia) with Anesthesia Last Oral Intake Last Oral intake: Last Oral Intake NPO since 21:00 07/30/24 11:05 Meds taken in AM with sips of No 07/30/24 11:05 water? Meds patient instructed to take am of surgery PONV PONV - sourcing consultant: PONV - sourcing consultant Female No 07/28/24 08:43 HX of Motion Sickness No 07/28/24 08:43 HX of N/V After Surgery No 07/28/24 08:43 Non-Smoker Yes 07/28/24 08:43 Duration of Surgery greater No 07/28/24 08:43 than 60 minutes Number of Risk Factors 1 07/28/24 08:43 PONV Score Low Risk 07/28/24 08:43 Height & Weight Height & Weight: Anesthesia: Height & Weight Height 5 ft 10 in 07/30/24 11:05 Weight: 57 kg 07/30/24 11:05 Body Mass Index (BMI) 18.0 07/30/24 11:05 Respiratory Assessment Respiratory Assessment - sourcing consultant: Respiratory Tract Infection Hx - sourcing consultant Hx Respiratory Tract Infection No 07/28/24 08:43 STOP Sleep Apnea STOP Sleep Apnea - sourcing consultant: STOP Sleep Apnea - sourcing consultant Hx Hypertension No 07/28/24 08:43 Hx Sleep Apnea No 07/28/24 08:43 CPAP No 01/31/21 09:30 BIPAP Do you snore loudly (louder No 07/28/24 08:43 than talking or can be heard Do you often feel tired/ No 07/28/24 08:43 fatigued/ sleepy during daytime? Has anyone observed you stop No 07/28/24 08:43 breathing during sleep? STOP Results Negative 07/28/24 08:43 QUESTION #5 FULL TEXT : Do you snore loudly (louder than talking or can be heard through closed doors)? 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 Specify any problems Hx of Preganancy in last 3 N/A 07/28/24 08:43 Months Nurse Filling Out Transfusion [email or web address] 07/28/24 08:43 & Questions: Date: 07/28/24 07/28/24 08:43 Time: 08:46 07/28/24 08:43 Patient unable to answer at this time (ie. 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 Regional lymph node metastasis present Esophageal cancer Pancreatic cancer CAD (coronary artery disease) Cough with hemoptysis Wears glasses Prostate disease High cholesterol Former smoker History of echocardiogram Cardiology follow-up encounter Screen for colon cancer Hepatic cyst Carotid artery stenosis Dyspnea Anemia, mild Atonic bladder BPH (benign prostatic hyperplasia) Hyperlipidemia Hemoptysis Home Medications ?Medication ?Instructions ?Recorded ?Last Taken ?Type atorvastatin 40 mg tablet 40 mg PO DAILY 01/12/2110/18 History latanoprost 0.005 % eye drops 1 drp ophthalmic (eye) Q DAY 07/14/24 07/29/24 History lidocaine-prilocaine 2.5 %-2.5 % 1 applic topical ONCE PRN port 07/27/24 Unknown Rx topical cream access 30 days #30 grams ondansetron 8 mg disintegrating 8 mg PO Q8H PRN nausea and 07/27/24 Unknown Rx tablet vomiting #30 tabs prochlorperazine maleate 10 mg 10 mg PO Q6H PRN nausea and 07/27/24 Unknown Rx tablet vomiting #30 tabs Allergy/AdvReac Type Severity Reaction Status Date / Time No Known Allergies Allergy Verified 07/30/24 11:03 Family History Father Heart disease CHF (congestive heart failure) Myocardial infarction 60 Mother Heart disease CHF (congestive heart failure) Brother CAD (coronary artery disease), Onset Age: 40 stent placement Bladder cancer Brother CVA (cerebral vascular accident) Surgical History History of foot surgery History of colonoscopy (~2007) Social History Smoking Status: Former smoker alcohol intake: current alcohol intake frequency: a few times a week Alcohol type: beer substance use type: does not use caffeine: Yes Type: coffee Number of servings: 1 what type of physical activity do you participate in: walking frequency: daily duration: 30-45 minutes/day Review of Systems (Anesthesia) ROS Narrative System reviewed and no additional complaints, except as documented.
[2024-07-30] MEDS: Cefazolin 2 GM in Syringe IV (12:05)
[2024-07-30] MEDS: Bupivacaine Mpf 0.5% 30 ML VIAL (12:21)
[2024-07-30] MEDS: Lidocaine 1% /Epi 1:100 (20ml) 20 ML Vial (12:21)
--- NOTE | 2024-07-30 12:51 | EX.PCM.DISCH ---
Discharge Instructions Diet Discharge Diet: Light diet - advance as tolerated Activity Discharge Activity: Return to Normal Activity and May Shower May shower in (days): 1 Ice area for (Minutes): 30 Dressing / Incision Call your doctor if your incision/area has: Continuous Slow Oozing, Sudden Increased Bleeding, Increased Pain/ Swelling, Increased Redness, Foul Smelling Discharge and Swelling at the incision site Call your doctor if you observe: Fever of 101 or Higher Remove Dressing in: 3 days Cleanse incision/area with: Soap & Water Follow Up Care Test Results: Test results from this visit will be discussed in further detail at your follow-up appointment, if applicable. Discharge Plan Admission Primary Reason for Your Visit: Port placement Attending Provider: Andrade Epstein Primary Care Provider: [facility],[place] Instructions Print Language: Filipino Discharge Orders/Prescriptions Prescriptions: New oxycodone-acetaminophen [Percocet] 5-325 mg tablet 1 tab PO Q8H PRN (Reason: pain) 3 Days Qty: 5 0RF Continued atorvastatin 40 mg tablet 40 mg PO DAILY latanoprost 0.005 % drops 1 drp ophthalmic (eye) QDAY prochlorperazine maleate 10 mg tablet 10 mg PO Q6H PRN (Reason: nausea and vomiting) Qty: 30 2RF Patient Comments: hasn't taken yet ondansetron 8 mg tablet,disintegrating 8 mg PO Q8H PRN (Reason: nausea and vomiting) Qty: 30 2RF Patient Comments: hasn't taken yet lidocaine-prilocaine 2.5-2.5 % cream 1 applic topical ONCE PRN (Reason: port access) 30 Days Qty: 30 2RF Patient Comments: hasn't taken yet Referrals / Follow Up: [facility],[place] [Primary Care Provider] - Disposition Disposition (needs filled in before D/C Order can be placed): Home, Self Care
--- NOTE | 2024-07-30 12:54 | PCM.POST.ANE ---
Anesthesia: Postop Eval I Current Vital Signs Temperature: 97.5 F Pulse Rate: 76 Blood Pressure: 109/59 Respiratory Rate: 20 Pulse Ox: 100 Oxygen Delivery Method: Room Air Assessment Airway patent: Yes Spontaneous unlabored respirations: Yes Mental status: Awake and Calm nausea: No Vomiting: No Anesthesia Complication: No Fluid Hydration Crystalloid volume administer (ml): 250 Total IV fluid infused: 250 Progress Note Anesthesia document: Postop Eval 1 completed: Yes
--- NOTE | 2024-07-30 12:55 | OP.PCM_ITS ---
Problems Associated Problem List Diagnoses (1) Metastasis to liver: Procedures Cardiovascular CF Procedures [id number]: [id number] Insert tunneled cv cath Operative Report (Standard) Operative Information Date of Procedure: 07/30/24 Pre-Operative Diagnosis: Metastatic cancer Post-Operative Diagnosis: Same Surgery/Procedure Performed: Left subclavian Mediport placement with C arm customer acquisition specialist: No Type of Anesthesia: Local and MAC RN Documented Start/Stop Times: Operation Date: 07/30/24 12:30 Case Time Into Pre-Op 07/30/24 10:41 Out of Pre-Op 07/30/24 11:55 Anesthesia Start 07/30/24 11:58 Into Room 07/30/24 11:58 Procedure Start 07/30/24 12:20 Procedure End 07/30/24 12:48 Anesthesia End 07/30/24 12:49 Out of Room 07/30/24 12:49 Into Recovery 07/30/24 12:51 Procedure Start Time: 12:20 Procedure Stop Time: 12:48 Select all DRAINS/GRAFTS/IMPLANTS that apply: Implanted device Implanted device details: 8 Arabic PowerPort Special Medications: Preoperative Ancef Estimated Blood Loss: Minimal Specimen collected: No Description of surgery: The patient is a 73-year-old male recently seen to the office in need of a Mediport placement surgery. He was recently discovered with widely metastatic carcinoma. His treating oncologist are recommending chemotherapy. As a result Mediport placement was discussed. We discussed the details of the planned procedure as well as the risks benefits and alternatives. He wishes to proceed. He was brought to the operating today following informed consent. Preoperative antibiotics were given and a timeout was performed. He was placed supine on the operative table with arms comfortably at his sides. MAC anesthesia was induced. Once adequately sedated a small axillary roll consisting of a rolled up towel were placed between the shoulder blades to improve access to the vasculature. The chest and neck regions were then prepped and draped in the usual manner. Local anesthetic was injected into the left periclavicular region. Using the supplied needle and syringe, the left subclavian vein was accessed on the first pass. The blood return was a dark red, nonpulsatile, venous appearing blood return. The syringe was removed and the supplied guidewire was threaded down the aperture and the needle. The guidewire was then attached to the drapes using a curved hemostat. C-arm was brought into confirm good positioning of the wire. Next a subcutaneous pocket was created in the left upper chest. This was performed by injecting local anesthetic and then making about a 3 cm incision using a #15 blade. Bovie electrocautery was then used to dissect down through subtendinous tissues down to the level of the pectoralis fascia. At this level a subcutaneous pocket was created. A small incision was made at the entry point of the guidewire. The supplied tubing was connected to the tunneler and this was tunneled into the larger incision and up and out through the smaller incision. This was trimmed to about 19 cm. The tubing was then attached to the hub. The hub was then affixed to the chest wall using Prolene suture x 2. Next the dilator and sheath were then threaded over the guidewire and advanced. Position was confirmed with C arm. The sheath was left in place as the guidewire and dilator were then removed. The free end of the tubing was then threaded down the sheath. The sheath was then extracted. The port was tested using injectable saline. It alex and flushed nicely with good blood return. C arm was brought into confirm good positioning of the port. Heparin flush was then injected into the port. The wound was then closed using 3-0 Vicryl and 4-0 Vicryl. Skin glue was applied as dressing along with sterile 2 x 2 and a large OpSite. Patient was awakened from anesthesia and taken to recovery in good condition. Surgical Findings: See description of surgery Complications Complications: No Admit VTE Documentation VTE Present on Admission: No VTE Mechan Device Prophylaxis: SCD's VTE Pharm Prophylaxis ordered?: No Reason prophylaxis not ordered: Treatment Not Indicated
--- NOTE | 2024-07-30 12:55 | RAD_ITS ---
PROCEDURE: CXR FOR LINE PLACEMENT REASON FOR EXAM: Portable chest radiograph was obtained. TECHNIQUE: Frontal view of the chest was obtained. COMPARISON: None. FINDINGS: A left-sided port a catheter has been placed. The tip is in the proximal portion of the superior vena cava. There is no evidence of pneumothorax. Elevation of the right hemidiaphragm. RAD/CXR for Line Placement IMPRESSION: The tip of the left-sided port a catheter is in the proximal portion of the sup erior vena cava. Reading Location: [id number]
--- NOTE | 2024-07-30 18:28 | POSTOPAN2_ITS ---
Anesthesia Postop Eval I Sum Postop Eval Completion status Anesthesia document: Postop Eval 1 completed: Yes Anesthesia Postop Eval I Summary Anesthesia Postop Eval I Summary: Anesthesia Postop Eval I: Assessment Summary Airway patent Yes 07/30/24 12:55 [email or web address] Spontaneous unlabored Yes 07/30/24 12:55 [email or web address] respirations Mental status Awake,Calm 07/30/24 12:55 [email or web address] nausea No 07/30/24 12:55 [email or web address] Vomiting No 07/30/24 12:55 [email or web address] Anesthesia Postop Eval I: Fluid Summary Crystalloid volume administer 250 07/30/24 12:55 [email or web address] (ml) Colloids volume administered ( ml) Blood Product volume administered (ml) Total IV fluid infused 250 07/30/24 12:55 [email or web address] Anesthesia Postop Eval I: Summary Notes Anesthesia Complication No 07/30/24 12:55 [email or web address] Anesthesia Complication Comment: Post-operative progress note Anesthesia: Postop Eval II Evaluation Mental status: Awake and Calm Pain Level: 1 nausea: No Vomiting: No Complications Anesthesia Complication: No
--- NOTE | 2024-07-30 18:28 | PCM.POSTANE2 ---
Anesthesia Postop Eval I Sum Postop Eval Completion status Anesthesia document: Postop Eval 1 completed: Yes Anesthesia Postop Eval I Summary Anesthesia Postop Eval I Summary: Anesthesia Postop Eval I: Assessment Summary Airway patent Yes 07/30/24 12:55 [email or web address] Spontaneous unlabored Yes 07/30/24 12:55 [email or web address] respirations Mental status Awake,Calm 07/30/24 12:55 [email or web address] [email or web address] nausea No 07/30/24 12:55 [email or web address] Vomiting No 07/30/24 12:55 [email or web address] Anesthesia Postop Eval I: Fluid Summary Crystalloid volume administer 250 07/30/24 12:55 [email or web address] (ml) Colloids volume administered ( ml) Blood Product volume administered (ml) Total IV fluid infused 250 07/30/24 12:55 [email or web address] Anesthesia Postop Eval I: Summary Notes Anesthesia Complication No 07/30/24 12:55 [email or web address] Anesthesia Complication Comment: Post-operative progress note Anesthesia: Postop Eval II Evaluation Mental status: Awake and Calm Pain Level: 1 nausea: No Vomiting: No Complications Anesthesia Complication: No
== END 2024-07-30 13:47 | disposition home or self-care (01) ==
LOC: SDC 10:31 → AC 10:34
PROVIDERS: Visit Provider Surgery
PROC: (CPT 36561; principal; 2024-07-30 12:15)
DX: Z45.2 Encounter for adjustment and management of vascular access device (principal); C78.7 Secondary malignant neoplasm of liver and intrahepatic bile duct; C78.01 Secondary malignant neoplasm of right lung; C78.02 Secondary malignant neoplasm of left lung; C15.5 Malignant neoplasm of lower third of esophagus; C25.1 Malignant neoplasm of body of pancreas; E78.00 Pure hypercholesterolemia, unspecified; Z79.899 Other long term (current) drug therapy; Z87.891 Personal history of nicotine dependence
CPT/HCPCS: 36561; 00532; 71045; 77001; C1788

== ENCOUNTER → 2024-10-21 | Outpatient (CLI) | payer OTHER, SELFPAY ==
--- NOTE | 2024-10-21 08:03 | CT_ITS ---
PROCEDURE: CT CHEST, ABD, PEL W/CONTRAST 10/21/2024 REASON FOR EXAM: IV PO CONTRAST; M ESOPHAGEAL CA TECHNIQUE: Chest, abdomen and pelvis CT with intravenous contrast. Coronal and Sagittal reconstruction series were provided. One or more dose reduction techniques were used (e.g., Automated exposure control, adjustment of the mA and/or kV according to patient size, use of iterative reconstruction technique. PATIENT PREPARATION: Per protocol ORAL CONTRAST TYPE: Given CONTRAST: Isovue 3 7 VOLUME: 100mL RADIATION DOSE SUMMARY: CTDlvol: 8 mGy DLP: 1255.8 mGycm COMPARISON: Prior study dated June 15, 2024. FINDINGS: CT CHEST: Hardware: A left-sided port a catheter is seen within the superior vena cava. Lymph nodes: Small benign-appearing mediastinal lymph nodes. Largest lymph node measures 1.1 cm in the is in the precarinal space. Heart and Vasculature: The heart is nonenlarged coronary artery calcifications are seen. Atherosclerotic calcifications of the thoracic aorta. Pulmonary arteries are unremarkable. Lungs and Airways: Small calcified granuloma in the posterior aspect of the right middle lobe. Persistent area of ground-glass appearance and bronchiectasis in the right lower lobe. The previously seen nodular densities in the right lower lobe have almost completely resolved. Minimal residual ground-glass appearance in the posterior aspect of the lingula segment of the left upper lobe. The previously seen nodular density in the left lower lobe have resolved. Pleura: No evidence of pleural effusion. Bones: Degenerative changes of the thoracic spine. Stable bone island at the level of the T10 vertebrae. CT ABDOMEN/PELVIS: Liver: The previously seen heterogeneous nodules scattered throughout the liver of all. There. Gallbladder: Small gallstones are seen along the dependent portion of the gallbladder lumen. Spleen: Normal size. Pancreas: The previously seen hypoenhancing lesion in the body of the pancreas is not well seen at this time. Adrenals: Unremarkable Kidneys: Normal renal sizes. No hydronephrosis.. Stable 2 mm nonobstructive left intrarenal calculus. Bladder: Unremarkable Bowel: No bowel obstruction. Appendix: Unremarkable Lymph nodes: Unremarkable. Vasculature: Mild diffuse atherosclerotic calcifications are noted. Peritoneum / Retroperitoneum: Unremarkable Bones: Degenerative changes of the spine. CT/CT Chest, Abd, Pel w/Contrast IMPRESSION: Since prior study, there has been almost complete clearing of the previously se en nodules in the lower lobes of both lungs as well as the liver metastasis. Improvement of the hypodense lesion in the body of the pancreas. Gallstones. Reading Location: [id number]
[2024-10-21] MEDS: 0.9% Saline Lock 10 ML Syringe IV (08:20)
== END | disposition home or self-care (01) ==
LOC: CT 08:03
PROVIDERS: Referring Provider Nurse Practitioner Family; Visit Provider Nurse Practitioner Family
DX: C25.1 Malignant neoplasm of body of pancreas (principal); C78.01 Secondary malignant neoplasm of right lung; C78.02 Secondary malignant neoplasm of left lung; C77.9 Secondary and unspecified malignant neoplasm of lymph node, unspecified
CPT/HCPCS: 71260; 74177; Q9967

== ENCOUNTER → 2025-01-15 | Outpatient (CLI) | payer OTHER, SELFPAY ==
--- NOTE | 2025-01-15 12:41 | CT_ITS ---
PROCEDURE: CT CHEST, ABD, PEL W/CONTRAST 01/15/2025 REASON FOR EXAM: M ESOPHAGEAL CA Currently on chemotherapy. TECHNIQUE: Chest, abdomen and pelvis CT with intravenous contrast. Coronal and Sagittal reconstruction series were provided. One or more dose reduction techniques were used (e.g., Automated exposure control, adjustment of the mA and/or kV according to patient size, use of iterative reconstruction technique. PATIENT PREPARATION: Per protocol ORAL CONTRAST TYPE: None. CONTRAST: Isovue 370 VOLUME: 100mL RADIATION DOSE SUMMARY: CTDlvol: 7.97 mGy DLP: 544.72 mGycm COMPARISON: Prior study dated October 21, 2024. FINDINGS: CT CHEST: Hardware: A left-sided port a catheter is seen with the tip in the superior vena cava. Lymph nodes: No significant lymph nodes are seen. Stable 1.1 cm lymph node in the precarinal space. Heart and Vasculature: The heart is not enlarged. No pericardial effusion. Coronary artery calcification. Atherosclerotic calcifications of the thoracic aorta. Pulmonary arteries are unremarkable. Lungs and Airways: Since prior study, as with a been progressive airspace disease in the right lower lobe with bronchiectasis and bleb formation. New patchy areas of ground-glass appearance in the left lower lobe. These have progressed as compared to prior study. Calcified granuloma in the posterior right upper lobe. Pleura: No pleural effusion. Bones: Degenerative changes of the thoracic spine. CT ABDOMEN/PELVIS: Liver: Stable 2.2 cm cyst in the left lobe of the liver.. Tiny subcentimeter scattered hypodense nodules in the right lobe of the liver. Gallbladder: Surgically absent. Spleen: Normal size. Pancreas: 6.3 mm cyst in the uncinate process of the pancreas. Adrenals: Unremarkable Kidneys: Mild left hydronephrosis. No obstructive uropathy is seen. Bladder: Unremarkable. There is evidence of prior TURP of the prostate. Bowel: Colonic diverticulosis without diverticulitis. Appendix: The appendix is not identified. There is no inflammatory process identified in the right lower quadrant to suggest appendicitis. Lymph nodes: Unremarkable. Vasculature: Mild diffuse atherosclerotic calcifications are noted. Peritoneum / Retroperitoneum: Unremarkable Bones: Degenerative changes of the spine. CT/CT Chest, Abd, Pel w/Contrast IMPRESSION: Increased airspace disease in the right lower lobe with areas of bronchiectasis and small cyst formation suggestive of possible scarring. Stable hypodensities in the liver. Reading Location: [facility]
[2025-01-15] MEDS: 0.9 % NaCl (Sterile) Posiflush 10 mL IV (13:00)
[2025-01-15] MEDS: 0.9% Saline Lock 10 ML Syringe IV (13:10)
== END | disposition home or self-care (01) ==
LOC: CT 12:40
PROVIDERS: Referring Provider Nurse Practitioner Family; Visit Provider Nurse Practitioner Family
DX: C25.1 Malignant neoplasm of body of pancreas (principal); C78.01 Secondary malignant neoplasm of right lung; C78.02 Secondary malignant neoplasm of left lung; C78.7 Secondary malignant neoplasm of liver and intrahepatic bile duct; C77.9 Secondary and unspecified malignant neoplasm of lymph node, unspecified
CPT/HCPCS: 71260; 74177; Q9967

== ENCOUNTER → 2025-04-23 | Outpatient (CLI) | payer OTHER, SELFPAY ==
--- NOTE | 2025-04-23 12:45 | CT_ITS ---
PROCEDURE: CT CHEST, ABD, PEL W/CONTRAST 04/23/2025 REASON FOR EXAM: F/U METS ESOPHAGEAL CA IV CONT ONLY TECHNIQUE: Chest, abdomen and pelvis CT with intravenous contrast. Coronal and Sagittal reconstruction series were provided. One or more dose reduction techniques were used (e.g., Automated exposure control, adjustment of the mA and/or kV according to patient size, use of iterative reconstruction technique. PATIENT PREPARATION: Per protocol ORAL CONTRAST TYPE: None. CONTRAST: Isovue-300 VOLUME: 80mL RADIATION DOSE SUMMARY: CTDlvol: 8.8 mGy DLP: 710.54 mGycm COMPARISON: Prior study dated January 15, 2025. FINDINGS: CT CHEST: Hardware: A left-sided port a catheter is seen with the tip in the superior vena cava. Lymph nodes: Stable 1.1 cm lymph node in the precarinal space. Heart and Vasculature: Heart is nonenlarged. Atherosclerotic calcifications of the thoracic aorta. Pulmonary arteries are unremarkable. Coronary artery calcification. Lungs and Airways: Stable calcific granuloma in the right lower lobe. Persistent bronchiectasis and scarring with areas of contrast in both lower lobes worse on the right side. There has been some improvement as compared to prior study. Pleura: No pleural effusion. Bones: Degenerative changes of the thoracic spine. CT ABDOMEN/PELVIS: Liver: Stable 2.2 cm cyst in the left lobe of the liver. Tiny subcentimeter scattered hypodense nodules in the right lobe of the liver suggestive of small cysts. Gallbladder: Small gallstones are seen within the dependent portion of the gallbladder lumen. Spleen: Normal size. Pancreas: Normal size without evidence of mass surrounding inflammation or ductal dilation. Adrenals: Unremarkable Kidneys: Normal renal sizes. No hydronephrosis. Bladder: Unremarkable There is evidence of prior TURP of the pancreas. Bowel: Colonic diverticulosis without diverticulitis. Appendix: Considered Lymph nodes: Unremarkable. Vasculature: Mild diffuse atherosclerotic calcifications are noted. Peritoneum / Retroperitoneum: Unremarkable straightening Bones: Degenerative changes of the spine. CT/CT Chest, Abd, Pel w/Contrast IMPRESSION: Protocol syncopal linear examination Reading Location: [id number]
--- OUTSIDE RECORDS SUMMARY | 2025-04-23 13:00 | XMS RPT_ITS | CCD ---
Author Organization [facility] Care Team Providers Care First Helper Name Role Phone Fast DO, Pilar A Unavailable Savanah Crisostomo Unavailable Unavailable Master [place], [facility] Unavailable Unavailable [facility] Unavailable Unavailable Unavailable Unavailable [place] Primary Care Provider Dr. Ramírez Sheth Referring Provider Dr. Ramírez Baker Other Provider Dr. Luz Box Attending Provider Unavailable Primary Care Provider ARACELY Lowe Attending Unavailable [place] Primary Care Provider Dr. Jt Bianchi MD Attending Provider Dr. Jt Elmore MD Referring Provider [place] Primary Care Provider Sarah Hunt Attending Provider Unavailable [place] Referring Provider Unavailable Dr. Zulay Celis MD Attending Provider Dr. Zulay Celis MD Referring Provider Yared MACIAS-C, Laurie Attending Provider Dr. Andrade Epstein MD Attending Provider Dr. Andrade Epstein MD Other Provider Physician, No Pcp Primary Care Provider UnavailAMRIT Dickerson Referring Unavailable PHYSICIAN, NO PCP Primary Care Unavailable [place] Primary Care Provider Dr. Jt Bianchi MD Attending Provider Dr. Jt Elmore MD Referring Provider [place] Primary Care Provider UnavailSarah West Attending Provider Unavailable [place] Referring Provider Unavailable Vimal AVINA, Dr. Biswas Attending Provider Yared TECHNICAL PHOTOGRAPHER-C, Laurie Attending Provider Tete AVINA, Dr. Andrade Baird Attending Provider Tete AVINA, Dr. Andrade Baird Referring Provider Tete AVINA, Dr. Andrade Baird Other Provider Vimal AVINA, Dr. Biswas Referring Provider [place] Primary Care Provider Unavailabl e Vimal AVINA, Dr. Biswas Referring Provider Yared TECHNICAL PHOTOGRAPHER-C, Laurie Referring Provider Dr. uZlay Celis MD Referring Provider Dr. Zulay Celis MD Referring Provider [place] Primary Care Provider [facility] Referring Provider Unavailable Dr. Zulay Celis MD Attending Provider Dr. Zulay Celis MD Referring Provider [place] Primary Care [facility] Referring Provider Unavailable Yared TECHNICAL PHOTOGRAPHER-C, Laurie Attending Provider Dr. Zulay Celis MD Attending Provider [facility] Care Provider Unavailabl e Dr. Zulay Celis MD Referring Provider [place] Primary Care Provider [facility] Referring Provider Unavailable Yared TECHNICAL PHOTOGRAPHER-C, Laurie Attending Provider Pranay AVINA, Dr. Frost Attending Provider Dr. Zulay Celis MD Referring Provider [place] Primary Care Provider [facility] Referring Provider Unavailable Yared TECHNICAL PHOTOGRAPHER-C, Laurie Attending Provider Dr. Zulay Celis MD Referring Provider [place] Primary Care Provider [facility] Referring Provider Unavailable Yared TECHNICAL PHOTOGRAPHER-C, Laurie Attending Provider Dr. Zulay Celis MD Referring Provider Dr. Zulay Celis MD Referring Provider [facility] [place] [facility] [place] Referring Provider Unavailable Dr. Zulay Celis MD Attending Provider Dr. Zulay Celis MD Referring Provider [facility], [place] Primary Care Physician Unavailab le Dr. Zulay Celis MD Attending Physician [facility], [place] Primary Care Physician Unavailab le Yared TECHNICAL PHOTOGRAPHER-C, Laurie Attending Physician Dr. Santosh Pires MD Attending Physician Dr. Zulay Celis MD Referring Provider [facility] [place] [facility] [place] Referring Provider Unavailable Dr. Zulay Celis MD Attending Physician Yared TECHNICAL PHOTOGRAPHER-C, Laurie Attending Physician [facility], [place] Primary Care Physician Unavailab le Yared TECHNICAL PHOTOGRAPHER-C, Laurie Referring Provider Dr. Zulay Celis MD Referring Provider [facility] [facility] [place] Referring Provider Unavailable Dr. Zulay Celis MD Attending Physician Dr. Zulay Celis MD Referring Provider [facility] [facility] [place] Referring Provider Unavailable Yared TECHNICAL PHOTOGRAPHER-C, Laurie Attending Physician Dr. Zulay Celis MD Referring Provider Zulay Celis Attending Unavailable Zulay Celis Referring [facility]available [facility] [place] [facility] Unavailable Andrade Epstein Attending [facility] [place] [facility] Unavailable Jt Elmore Attending Unavailable Jt Elmore Referring [facility]available [facility] [place] [facility] Unavailable Andrade Epstein Consulting Unavailable Andrade Epstein Attending Unavailable Andrade Epstein Referring [facility] Unavailable Sarah Mccartney Attending [facility] Unavailable Yared TECHNICAL PHOTOGRAPHER, Laurie Attending [facility] Referring Un[facility] Unavailable Yared TECHNICAL PHOTOGRAPHER, Laurie Attending [facility] Referring Unavailable Yared TECHNICAL PHOTOGRAPHER, Laurie Attending [facility] Referring [facility] Referring Unavailable Isckarus, Mansour Attending [facility] Referring Unavailable Isckarus, Mansour Attending [facility] Unavailable Yared TECHNICAL PHOTOGRAPHER, Laurie Attending [facility] Referring [facility] Unavailable Yared TECHNICAL PHOTOGRAPHER, Laurie Attending [facility] Referring [facility] Unavailable Yared TECHNICAL PHOTOGRAPHER, Laurie Attending [facility] Referring [facility] Unavailable Yared TECHNICAL PHOTOGRAPHER, Laurie Attending [facility] Referring [facility] Unavailable Yared TECHNICAL PHOTOGRAPHER, Laurie Attending [facility] Referring [facility] Referring Unavailable Isckarus, Mansour Attending [facility] Referring Unavailable Isckarus, Mansour Attending [facility] Referring Unavailable Isckarus, Mansour Attending [facility] Unavailable Andrade Epstein Attending Un[facility] Ref[facility] Unavailable Yared TECHNICAL PHOTOGRAPHER, Laurie Attending [facility] Referring [facility] Referring Unavailable Isckarus, Mansour Attending [facility] Referring Unavailable Isckarus, Mansour Attending [facility] Referring Unavailable Isckarus, Mansour Attending [facility] Referring Unavailable Isckarus, Mansour Attending [facility] Referring Unavailable Santosh Pires Attending Unavailable Yared TECHNICAL PHOTOGRAPHER, Laurie Attending Unavailable Yared TECHNICAL PHOTOGRAPHER, Laurie Referring [facility] Unavailable Yared TECHNICAL PHOTOGRAPHER, Laurie Attending [facility] Referring [facility] Unavailable Yared TECHNICAL PHOTOGRAPHER, Laurie Attending [facility] Ref[facility] Unavailable Yared TECHNICAL PHOTOGRAPHER, Laurie Attending [facility] Ref[facility] Ref[facility] Unavailable Zulay Celis Attending [facility] [place] Referring Unavailable Zulay Celis Attending [facility] [place] [facility] Unavailable Yared TECHNICAL PHOTOGRAPHER, Laurie Attending Unavailable Yared TECHNICAL PHOTOGRAPHER, Laurie Referring [facility] [place] [facility] Unavailable Medications Current Medications Medication Drug Class(es) Dates Sig (Normalized) Sig (Original) acetaminophen 325 mg / oxyCODONE hydrochloride 5 mg oral tablet (19 sources) Opioid Agonist Start: 07-30-2024 take 1 tablet by mouth every eight hours as needed for pain Start: 11-17-2012 take 7.5 mg by mouth every four hours as needed oxyCODONE-Acetaminophen (PERCOCET) 7.5-5 00 mg per tablet Take 1 tablet by mouth every 4 hours as needed. 20 tablet 0 11/17/2012 Active atorvastatin 40 mg oral tablet (20 sources) HMG-CoA Reductase Inhibitor Start: 01-12-2021 take 1 tablet by mouth once daily Start: 07-24-2006 End: 07-30-2006 take 1 tablet by mouth once daily LIPITOR, 10MG (Oral Tablet) 1 Tablet qd for 0 days Quantity: 90 {Tablet} Refills: 3 Ordered: 24-Jul-2006 Helder Teodora Start : 24-Jul-2006 End : 30-Jul-2006 Discontinued Start: 03-21-2006 End: 04-16-2011 LIPITOR 40 MG TAB Take one(1 ) tablet daily. 0 03/21/2006 Active finasteride 5 mg oral tablet (3 sources) 5-alpha Reductase Inhibitor Start: 10-06-2012 take 1 tablet by mouth once daily finasteride (PROSCAR) 5 mg tablet Take 1 tablet by mouth once daily. 30 tablet 3 10/06/2012 Active latanoprost 0.05 mg/ml ophthalmic solution (16 sources) Prostaglandin Analog Start: 07-14-2024 lidocaine 25 mg/ml / prilocaine 25 mg/ml topical cream (16 sources) Antiarrhythmic, Amide Local Anesthetic Start: 07-27-2024 Magic Mouth Wash (Bmx) 180 mL suspension (15 sources) Start: 08-04-2024 Start: 08-04-2024 Magic Mouth Wa sh (Bmx) 180 mL suspension Active 15 mL PO EVERY 4 HOURS NEEDED 180 August 04, 2024 12:00am Pain diphenhydramine 12.5 mg/5 mL oral liquid 60 mL; aluminum-mag hydroxide-simethicone 400 mg-400 mg-40 mg/5 mL oral susp 60 mL; Lidocaine Viscous 2 % mucosal solution 60 mL; Per 180 mL Complies with drug therapy Start: 08-04-2024 Magic Mouth Wa sh (Bmx) 180 mL suspension Active 15 mL PO EVERY 4 HOURS NEEDED 180 8 August 04, 2024 12:00am Pain diphenhydramine 12.5 mg/5 mL oral liquid 60 mL; aluminum-mag hydroxide-simethicone 400 mg-400 mg-40 mg/5 mL oral susp 60 mL; Lidocaine Viscous 2 % mucosal solution 60 mL; Per 180 mL Start: 08-04-2024 Magic Mouth Wa sh (Bmx) 180 mL suspension Active 15 mL PO EVERY 4 HOURS NEEDED 180 August 04, 2024 12:00am diphenhydramine 12.5 mg/5 mL oral liquid 60 mL; aluminum-mag hydroxide-simethicone 400 mg-400 mg-40 mg/5 mL oral susp 60 mL; Lidocaine Viscous 2 % mucosal solution 60 mL; Per 180 mL MULTIVITAMIN TAB (3 sources) Start: 06-12-2007 MULTIVITAMIN TAB Take one(1) tablet daily. 0 06/12/2007 Active nystatin 809731 unt/ml oral suspension (19 sources) Polyene Antifungal Start: 08-11-2024 End: 09-15-2024 take 1 mL by mouth three times daily ondansetron 8 mg disintegrating oral tablet (16 sources) Serotonin-3 Receptor Antagonist Start: 07-27-2024 take 1 tablet by mouth every eight hours as needed for nausea and vomiting phenazopyridine hydrochloride 200 mg oral tablet (3 sources) Start: 11-17-2012 take 1 tablet by mouth every twelve hours as needed phenazopyridine (PYRIDIUM) 200 mg tablet Take 1 tablet by mouth twice daily as needed. FOR URINARY SYMPTOMS 20 tablet 0 11/17/2012 Active prochlorperazine 10 mg oral tablet (16 sources) Phenothiazine Start: 07-27-2024 take 1 tablet by mouth every six hours as needed for nausea and vomiting Completed/Discontinued Medications Medication Drug Class(es) Dates Sig (Normalized) Sig (Original) ascorbic acid 250 mg oral tablet (20 sources) Vitamin C Start: 06-26-2021 End: 03-11-2023 take 1 tablet by mouth twice daily Ascorbic Acid (Vitamin C) 250 mg tablet Discontinued 250 mg PO TWICE A DAY June 26, 2021 1:00am March 11, 2023 4:45am aspirin 81 mg delayed release oral tablet (20 sources) Platelet Aggregation Inhibitor, Nonsteroidal Anti-inflammatory Drug Start: 03-21-2006 End: 06-26-2021 take 1 tablet by mouth once daily Aspirin 81 mg tablet,delayed release (DR/EC) Discontinued 81 mg PO DAILY January 12, 2021 12:00am June 26, 2021 12:00pm take 1 tablet by mouth once jennifer y ASPIRIN LOW DOSE, 81MG (Oral Tablet) 1 QD for 0 days Refills: 0 Ordered: 28-Sep-2008 Savanah Crisostomo Active ferrous sulfate 325 mg oral tablet (20 sources) Start: 06-26-2021 End: 03-11-2023 take 1 tablet by mouth twice daily Ferrous Sulfate 325 mg (65 mg iron) tablet Discontinued 325 mg PO TWICE A DAY June 26, 2021 1:00am March 11, 2023 4:45am 24 hr mirabegron 50 mg extended release oral tablet (20 sources) beta3-Adrenergi c Agonist Start: 12-01-2019 End: 12-01-2019 take 1 tablet by mouth once daily Mirabegron 50 mg tablet extended release 24 hr Discontinued 50 mg PO DAILY December 01, 2019 12:00am December 01, 2019 1:50pm Multivitamin preparation (5 sources) Start: 12-01-2019 End: 03-11-2023 take 1 tablet by mouth once daily Multivitamin Discontinued 1 TABLET PO DAILY November 30, 2019 11:00pm March 11, 2023 3:45am Start: 12-01-2019 End: 03-11-2023 take 1 tablet by mouth once daily Multivitamin Discontinued 1 TABLET PO DAILY December 01, 2019 12:00am March 11, 2023 4:45am Start: 12-01-2019 take 1 tablet by prateek th once daily Multivitamin Active 1 TABLET PO DAILY December 01, 2019 12:00am MULTIVITAMIN (Or al Liquid) for 0 days Refills: 0 Ordered: 04-Jun-2014 Savanah Crisostomo Active Multivitamin tablet (16 sources) Start: 12-01-2019 End: 03-11-2023 Multivitamin tablet Disconti nued 1 {tbl} PO DAILY December 01, 2019 12:00am March 11, 2023 4:45am Start: 12-01-2019 End: 03-11-2023 Multivitamin tablet Disconti nued 1 {tbl} PO DAILY November 30, 2019 11:00pm March 11, 2023 3:45am Nystatin 100,000 unit/mL suspension (11 sources) Start: 08-11-2024 End: 09-15-2024 take 1 mL by mouth three times daily Nystatin 100,000 unit/mL suspension Discontinued 5 mL PO THREE TIMES A DAY 473 0 August 11, 2024 12:00am September 15, 2024 9:21am Candidiasis of mouth Candidal stomatitis swish and swallow Start: 08-11-2024 End: 09-15-2024 take 1 mL by mouth three times daily Nystatin 100,000 unit/mL suspension Discontinued 5 mL PO THREE TIMES A DAY 473 August 11, 2024 12:00am September 15, 2024 9:21am swish and swallow 24 hr oxybutynin chloride 10 mg extended release oral tablet (4 sources) Cholinergic Muscarinic Antagonist Start: 07-28-2013 End: 06-04-2014 take 1 tablet by mouth every twenty-four hours, then take 1 tablet by mouth once daily OXYBUTYNIN CHLORIDE ER, 10MG (Oral Tablet Extended Release 24 Hour) 1 (one) Tablet ER 24HR Tablet ER 24HR daily for 30 days Quantity: 30 {Tablet} Refills: 0 Ordered: 04-Jun-2014 Savanah Crisostomo Start : 28-Jul-2013 End : 04-Jun-2014 Discontinued Start: 01-14-2013 take 1 tablet by prateek once daily oxybutynin XL (DITROPAN XL) 15 mg 24 hr tablet Take 1 tablet by mouth once daily. 30 tablet 6 01/14/2013 Active penciclovir 10 mg/ml topical cream (1 source) Herpesvirus Nucleoside Analog DNA Polymerase Inhibitor Start: 08-13-2006 DENAVIR, 1% (External Cream) Cream as directed for 0 days Quantity: 30 {Cream} Refills: 3 Ordered: 13-Aug-2006 Savanah Crisostomo Start : 13-Aug-2006 Active penicillin v potassium 250 mg oral tablet (1 source) Start: 07-29-2007 End: 09-15-2007 take 1 tablet by mouth three times daily PENICILLIN V POTASSIUM, 250MG (Oral Tablet) 1 (one) Tablet tid for 10 days Quantity: 30 {Tablet} Refills: 0 Ordered: 29-Jul-2007 Angelakasia JANNETHRenay Start : 29-Jul-2007 End : 15-Sep-2007 Inactive polyethylene glycol 3350 53795 mg powder for oral solution (16 sources) Osmotic Laxative Start: 07-14-2024 End: 07-20-2024 take 17 g by mouth once daily Polyethylene Glycol 3350 17 gram powder in packet Discontinued 17 g PO daily July 14, 2024 1:00am July 20, 2024 10:21am simvastatin 80 mg oral tablet (20 sources) HMG-CoA Reductase Inhibitor Start: 12-01-2019 End: 01-12-2021 Simvastatin 80 mg tablet Discontinued 40 mg PO AT BEDTIME December 01, 2019 12:00am January 12, 2021 1:41pm Start: 12-01-2019 End: 01-12-2021 take 40 mg by mouth at bedtime Simvastatin Discontinue d 40 MG PO AT BEDTIME November 30, 2019 11:00pm January 12, 2021 12:41pm Start: 11-04-2014 take 1 tablet by prateek th once daily SIMVASTATIN, 40MG (Oral Tablet) 1 (one) Tablet qd for 90 days Quantity: 90 {Tablet} Refills: 3 Ordered: 04-Nov-2014 Fast DO, Pilar A Fast DO, Pilar A Start : 04-Nov-2014 Active solifenacin succinate 10 mg oral tablet (1 source) Cholinergic Muscarinic Antagonist Start: 01-04-2015 take 1 tablet by mouth once daily VESICARE, 10MG (Oral Tablet) 1 (one) Tablet qd for 0 days Quantity: 30 {Tablet} Refills: 3 Ordered: 04-Jan-2015 Sheridan Brady MD Start : 04-Jan-2015 Active tamsulosin hydrochloride 0.4 mg oral capsule (20 sources) alpha-Adrenergic Cyndi Start: 12-01-2019 End: 07-14-2024 take 1 capsule by mouth at bedtime Tamsulosin 0.4 mg capsule Discontinued 0.4 mg PO AT BEDTIME December 01, 2019 12:00am July 14, 2024 5:40pm Start: 06-23-2012 End: 07-23-2012 take 1 capsule by mouth once at bedtime TAMSULOSIN HCL, 0.4MG (Oral Capsule) 1 (one) Capsule q hs for 30 days Quantity: 30 {Capsule} Refills: 0 Ordered: 23-Jun-2012 Christiano DO Pilar A Fast DO, Pilar A Start : 23-Jun-2012 End : 23-Jul-2012 Inactive Comments: Per Urologist Start: 09-18-2011 take 2 capsules by m outh once daily at bedtime tamsulosin 0.4 mg ORAL Cp24 Take 2 capsules by mouth daily at bedtime. 180 capsule 3 09/18/2011 Active Comment on above: Per Urologist zolpidem tartrate 12.5 mg extended release oral tablet (1 source) gamma-Aminobutyric Acid-ergic Agonist Start: 06-23-2012 End: 06-23-2012 take 1 tablet by mouth once daily as needed AMBIEN CR, 12.5MG (Oral Tablet Extended Release) 1 (one) Tablet ER qd prn for 0 days Quantity: 30 {Tablet_ER} Refills: 0 Ordered: 23-Jun-2012 Christiano CESPEDESSnehaa A Christiano CESPEDES Pilar A Start : 23-Jun-2012 End : 23-Jun-2012 Discontinued Problems Active Problems Problem Classification Problem Date Documented Da te Episodic/Chronic Abdominal pain (20 sources) Epigastric pain; Translations: [Abdominal pain, acute, epigastric] Resolved: 01-03-2010 07-07-2015 Episodic Biliary tract disease (18 sources) Biliary calculus; Translations: [Calculus of gallbladder without cholecystitis without obstruction] 03-11-2023 Episodic Cancer of bronchus; lung (2 sources) Malignant tumor of lung; Translations: [Malignant neoplasm of unspecified part of unspecified bronchus or lung] Onset: 09-18-2024 09-18-2024 Chronic Cancer of esophagus (20 sources) Carcinoma of esophagus ; Translations: [Malignant neoplasm of esophagus, unspecified] Onset: 07-20-2024 07-23-2024 Chronic Cancer of pancreas (20 sources) Primary adenocarcinoma of pancreas; Translations: [Malignant neoplasm of pancreas, unspecified] Onset: 02-16-2025 07-23-2024 Chronic Comment on above: Metastatic from esop hagus or a second primary. Coronary atherosclerosis and other heart disease (17 sources) Coronary arteriosclerosis; Translations: [Atherosclerotic heart disease of [place] coronary artery without angina pectoris] 05-10-2023 Chronic Deficiency and other anemia (20 sources) Iron deficiency anemia due to blood loss; Translations: [Iron deficiency anemia secondary to blood loss (chronic)] 07-22-2024 Chronic Deficiency and other anemia (4 sources) Anemia; Translations: [Anemia, unspecified] Resolved: 06-23-2012 04-11-2015 Episodic Diseases of white blood cells (5 sources) Drug-induced neutropenia; Translations: [Other drug-induced agranulocytosis] Onset: 03-02-2025 Chronic Disorders of lipid metabolism (20 sources) Hyperlipidemia; Translations: [Hyperlipidemia, unspecified] 03-01-2015 Chronic Comment on above: chronic stable-amanda nue present regimen Essential hypertension (12 sources) Hypertensive disorder; Translations: [Hypertension] 03-01-2015 Chronic Comment on above: chronic stable-amanda nue present regimen Hyperplasia of prostate (8 sources) Benign prostatic hyperplasia; Translations: [Enlarged prostate with lower urinary tract symptoms] Onset: 08-18-2007 Resolved: 06-23-2012 04-15-2015 Chronic Comment on above: he will consdier ano ther opiion and let me know Immunizations and screening for infectious disease (4 sources) Needs influenza immunization; Translations: [Need for prophylactic vaccination and inoculation against influenza] 03-01-2015 Episodic Maintenance chemotherapy; radiotherapy (20 sources) Patient encounter status; Translations: [Encounter for antineoplastic chemotherapy] Onset: 03-23-2025 09-01-2024 Chronic Occlusion or stenosis of precerebral arteries (20 sources) Carotid artery stenosis; Translations: [Carotid stenosis] 03-08-2015 Chronic Comment on above: chronic stable-amanda nue present regimen Other and ill-defined heart disease (1 source) Cardiomegaly; Translations: [Cardiomegaly] 06-04-2014 Chronic Comment on above: Mild, echo 10/31/99, E F 65% Other bone disease and musculoskeletal deformities (3 sources) Osteochondritis dissecans; 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] Onset: 10-17-2010 10-17-2010 Chronic Other diseases of kidney and ureters (18 sources) Hydronephrosis; Translations: [Unspecified hydronephrosis] 03-11-2023 Episodic Other gastrointestinal disorders (1 source) Dysphagia; Translations: [Dysphagia, unspecified] 07-23-2024 Episodic Other gastrointestinal disorders (20 sources) Diarrhea; Translations: [Diarrhea, unspecified] 08-18-2024 Episodic Other lower respiratory disease (20 sources) Hemoptysis; Translations: [Hemoptysis] 06-26-2021 Episodic Other lower respiratory disease (20 sources) Dyspnea; Translations: [Dyspnea, unspecified] 12-01-2019 Episodic Other nervous system disorders (2 sources) Neuropathy; Translations: [Polyneuropathy, unspecified] 03-02-2025 Chronic Other nutritional; endocrine; and metabolic disorders (1 source) Weight loss Episodic Other screening for suspected conditions (not mental disorders or infectious disease) (20 sources) Other specified abnormal findings of blood chemistry; Translations: [Elevated LFTs] Resolved: 10-21-2007 03-02-2015 Episodic Other upper respiratory infections (2 sources) Acute pharyngitis; Translations: [Pharyngitis, acute] Resolved: 01-03-2010 03-01-2015 Episodic Residual codes; unclassified (1 source) FH: Cardiovascular disease; Translations: [Family history of other cardiovascular diseases] 06-04-2014 Episodic Comment on above: [place] Residual codes; unclassified (5 sources) Sleep disorder; Translations: [Sleep disorder] 06-04-2014 Episodic Comment on above: let me know if wants alternative Secondary malignancies (20 sources) Secondary malignant neoplasm of liver; Translations: [Secondary malignant neoplasm of liver and intrahepatic bile duct] 07-20-2024 Chronic Secondary malignancies (20 sources) Regional lymph node metastasis present ; Translations: [Secondary and unspecified malignant neoplasm of lymph node, unspecified] 07-20-2024 Chronic Secondary malignancies (20 sources) Secondary adenocarcinoma of bilateral lungs; Translations: [Secondary malignant neoplasm of right lung] 07-20-2024 Chronic Secondary malignancies (2 sources) Secondary and unspecified malignant neoplasm of lymph node, unspecified; Translations: [Secondary and unspecified malignant neoplasm of lymph node, unspecified] Onset: 03-23-2025 Chronic Secondary malignancies (2 sources) Secondary malignant neoplasm of right lung; Translations: [Secondary malignant neoplasm of right lung] Onset: 03-23-2025 Chronic Secondary malignancies (2 sources) Secondary malignant neoplasm of left lung; Translations: [Secondary malignant neoplasm of left lung] Onset: 03-23-2025 Chronic Secondary malignancies (2 sources) Secondary malignant neoplasm of liver and intrahepatic bile duct; Translations: [Secondary malignant neoplasm of liver and intrahepatic bile duct] Onset: 03-23-2025 Chronic Unclassified (4 sources) BPH with Urin. Obst (600.01) Unclassified (20 sources) Unclassified (11 sources) Carotid stenosis (433.10) Unclassified (3 sources) BPH without Urin. Obst (600.00) Unclassified (1 source) OTHER SYMPTOMS INVOLVING ABDOMEN AND PELVIS, ABDOMINAL PAIN, EPIGASTRIC (789.06) Unclassified (3 sources) Elevated Blood Pressure(796.2) Unclassified (2 sources) Elevated LFT (790.6) Unclassified (1 source) BRONCHITIS, NOT SPECIFIED ACUTE OR CHRONIC (490.) Unclassified (5 sources) C15.9 - Malignant neoplasm of esophagus, unspecified Unclassified (5 sources) C25.1 - Malignant neoplasm of body of pancreas,C15.5 - Malignant neoplasm of lower third of esophagus,C77.9 - Secondary and unspecified malignant neoplasm of lymph node, unspecified,C78.01 - Secondary malignant neoplasm of right lung,C78.02 - Secondary malignant neoplasm of left lung,C78.7 - Secondary malignant neoplasm of liver and intrahepatic bile duct,D64.9 - Anemia, unspecified Unclassified (12 sources) C15.5 - Malignant neoplasm of lower third of esophagus,C25.1 - Malignant neoplasm of body of pancreas,C77.9 - Secondary and unspecified malignant neoplasm of lymph node, unspecified,C78.01 - Secondary malignant neoplasm of right lung,C78.02 - Secondary malignant neoplasm of left lung,C78.7 - Secondary malignant neoplasm of liver and intrahepatic bile duct Unclassified (5 sources) R64 - Cachexia,Z71.9 - Counseling, unspecified,R63.4 - Abnormal weight loss,C15.5 - Malignant neoplasm of lower third of esophagus Unclassified (1 source) Malignant cachexia Unclassified (1 source) Encounter for education Unclassified (2 sources) Malignant neoplasm of esophagus Unclassified (2 sources) Malignant neoplasm metastatic to liver Unclassified (1 source) Malignant neoplasm of pancreas Unclassified (1 source) 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 Unclassified (2 sources) D70.2 - Other drug-induced agranulocytosis,C15.5 - Malignant neoplasm of lower third of esophagus Viral infection (2 sources) Herpes simplex without complication; Translations: [Uncomplicated herpes simplex] 05-04-2015 Episodic Past or Other Problems Problem Classification Problem Date Documented Date Episodic/Chronic Administrative/socia l admission (20 sources) Patient encounter status; Translations: [Counseling, unspecified] Onset: 08-04-2024 07-28-2024 Episodic Chronic obstructive pulmonary disease and bronchiectasis (1 source) Bronchitis; Translations: [Bronchitis] Resolved: 01-03-2010 03-01-2015 Episodic E Codes: Adverse effects of medical drugs (1 source) Adverse effect of antineoplastic and immunosuppressive drugs, initial encounter; Translations: [Adverse effect of antineoplastic and immunosuppressive drugs, initial encounter] Onset: 07-28-2024 Episodic Genitourinary symptoms and ill-defined conditions (6 sources) Retention of urine; Translations: [Retention of urine, unspecified] Onset: 08-21-2011 08-21-2011 Episodic Mycoses (16 sources) Candidiasis of mouth; Translations: [Candidal stomatitis] Onset: 09-15-2024 08-11-2024 Episodic Nausea and vomiting (1 source) Nausea with vomiting, unspecified; Translations: [Nausea with vomiting, unspecified] Onset: 07-28-2024 Episodic Nutritional deficiencies (20 sources) Malignant cachexia; 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] Onset: 08-04-2024 07-20-2024 Episodic Other acquired deformities (3 sources) Other specified acquired deformities of unspecified lower leg; Translations: [Other acquired deformities of ankle and foot] Onset: 10-05-2010 10-05-2010 Episodic Other aftercare (1 source) Encounter for adjustment and management of vascular access device; Translations: [Encounter for adjustment and management of vascular access device] Onset: 08-11-2024 Episodic Other circulatory disease (1 source) Elevated blood-pressure reading without diagnosis of hypertension; Translations: [Elevated blood pressure (not hypertension)] Resolved: 01-03-2010 04-12-2015 Episodic Other connective tissue disease (3 sources) Tendinitis; Translations: [Enthesopathy, unspecified] Onset: 10-05-2010 10-05-2010 Episodic Other injuries and conditions due to external causes (3 sources) Rupture of tendon; Translations: [Unspecified site of sprain and strain] Onset: 10-17-2010 10-17-2010 Episodic Other non-traumatic joint disorders (3 sources) Ankle instability; Translations: [Other instability, unspecified ankle] Onset: 10-17-2010 10-17-2010 Episodic Other nutritional; endocrine; and metabolic disorders (1 source) Abnormal weight loss; Translations: [Abnormal weight loss] Onset: 08-04-2024 Episodic Unclassified (1 source) Pre-Operative Examination, Unspecified (V72.84) Results Test Name Value Interpretation Reference Range [facility]is[facility] Ql (Bld) 2+ Normal [facility] Comment on above: Performed By: #### L 501.5200, L100.0100, L500.4050 ####[facility] [address] [place], [address] Comprehensive Metabolic Prof [facility] 04-06-2025 Albumin [Mass/Vol] 4.2 g/dL Normal 3.4-4.8 [facility] Comment on above: Performed By: #### L 501.5200, L100.0100, L500.4050 ####[facility] [address] [place], [address] Albumin/Globulin [Mass ratio] 1.6 {ratio} Normal 0.9-2.[address] [facility] Comment on above: Performed By: #### L 501.5200, L100.0100, L500.4050 ####[facility] [address] [place], [address] ALK PHOS 119 U/L Normal 40-[address] [facility] Comment on above: Performed By: #### L 501.5200, L100.0100, L500.4050 ####[facility] [address] [place], [address] ALT [Catalytic activity/Vol] 23 U/L Normal <=[address] [facility] Comment on above: Performed By: #### L 501.5200, L100.0100, L500.4050 ####[facility] [address] [place], [address] AST [Catalytic activity/Vol] 33 U/L Normal <=[address] [facility] Comment on above: Performed By: #### L 501.5200, L100.0100, L500.4050 ####[facility] [address] [place], [address] Bilirubin [Mass/Vol] 0.66 mg/dL Normal 0.00-1.30 [facility] Comment on above: Performed By: #### L 501.5200, L100.0100, L500.4050 ####[facility] [address] [place], [address] BUN/CRE 25.5 RATIO High 10-[address] [facility] Comment on above: Performed By: #### L 501.5200, L100.0100, L500.4050 ####[facility] [address] [place], [address] Calcium [Mass/Vol] 9.5 mg/dL Normal 7.6-11.0 [facility] Comment on above: Performed By: #### L 501.5200, L100.0100, L500.4050 ####[facility] [address] [place], [address] Chloride [Moles/Vol] 103 mmol/L Normal 98-108 [facility] Comment on above: Performed By: #### L 501.5200, L100.0100, L500.4050 ####[facility] [address] [place], [address] CO2 [Moles/Vol] 27.5 mmol/L Normal 21.0-32.[address] [facility] Comment on above: Performed By: #### L 501.5200, L100.0100, L500.4050 ####[facility] [address] [place], [address] Creatinine [Mass/Vol] 0.64 mg/dL Low 0.70-1.20 [facility] Comment on above: Performed By: #### L 501.5200, L100.0100, L500.4050 ####[facility] [address] [place], [address] ECRCL 64.62 ml/min Normal 50-[address] [facility] Comment on above: Performed By: #### L 501.5200, L100.0100, L500.4050 ####[facility] [address] [place], [address] GAP 10 Normal 5-[address] [facility] Comment on above: Performed By: #### L 501.5200, L100.0100, L500.4050 ####[facility] [address] [place], [address] GFR/1.73 sq M.predicted among non-blacks MDRD (S/P/Bld) [Vol rate/Area] 99 mL/min/{1.73_m2} Normal >[address] [facility] Comment on above: Result Comment: mL/m in/1.73m2 CKD-EPI Creatinine Equation (2020) Performed By: #### L 501.5200, L100.0100, L500.4050 ####[facility] [address] [place], [address] Globulin (S) [Mass/Vol] 2.7 g/dL Normal 2.2-4.2 [facility] Comment on above: Performed By: #### L 501.5200, L100.0100, L500.4050 ####[facility] [address] [place], [address] Glucose [Mass/Vol] 110 mg/dL High 70-99 [facility] Comment on above: Performed By: #### L 501.5200, L100.0100, L500.4050 ####[facility] [address] [place], [address] Potassium [Moles/Vol] 4.1 mmol/L Normal 3.3-5.1 [facility] Comment on above: Performed By: #### L 501.5200, L100.0100, L500.4050 ####[facility] [address] [place], [address] Sodium [Moles/Vol] 140 mmol/L Normal 133-145 [facility] Comment on above: Performed By: #### L 501.5200, L100.0100, L500.4050 ####[facility] [address] [place], [address] T PROT 6.9 g/dL Normal 5.9-8.[address] [facility] Comment on above: Performed By: #### L 501.5200, L100.0100, L500.4050 ####[facility] [address] [place], [address] Urea nitrogen [Mass/Vol] 16 mg/dL Normal 4-[address] [facility] Comment on above: Performed By: #### L 501.5200, L100.0100, L500.4050 ####[facility] [address] [place], [address] Magnesiumon 04-06-2025 Magnesium [Mass/Vol] 2.4 mg/dL High 1.5-2.2 [facility] Comment on above: Performed By: #### L 501.5200, L100.0100, L500.4050 ####[facility] [address] [place], [address] Oncology Visit Reporton 03-27 Oncology Visit Report Normal [facility] CBC W/Diff, Automatedon 10-2 Absolute Lymph 0.91 X10 3/uL Normal 0.83-4.[address] [facility] Comment on above: Performed By: #### L 500.4050, L501.5200, L100.0100 ####[facility] [address] [place], [address] Absolute Neut 4.3 X10 3/uL Normal 2.0-7.[address] [facility] Comment on above: Performed By: #### L 500.4050, L501.5200, L100.0100 ####[facility] [address] [place], [address] Basophils/100 WBC (Bld) 0.6 % Normal 0-1 [facility] Comment on above: Performed By: #### L 500.4050, L501.5200, L100.0100 ####[facility] [address] [place], [address] Eosinophils/100 WBC (Bld) 1.2 % Normal 0-[address] [facility] Comment on above: Performed By: #### L 500.4050, L501.5200, L100.0100 ####[facility] [address] [place], [address] Erythrocyte distribution width (RBC) [Ratio] 17.0 % High 11.6-14.[address] [facility] Comment on above: Performed By: #### L 500.4050, L501.5200, L100.0100 ####[facility] [address] [place], [address] Hematocrit (Bld) [Volume fraction] 29.7 % Low 40-[address] [facility] Comment on above: Performed By: #### L 500.4050, L501.5200, L100.0100 ####[facility] [address] [place], [address] Hemoglobin (Bld) [Mass/Vol] 9.9 g/dL Low 13.0-16.[address] [facility] Comment on above: Performed By: #### L 500.4050, L501.5200, L100.0100 ####[facility] [address] [place], [address] IG% 0.400 Normal 0.0-0.[address] [facility] Comment on above: Result Comment: IG% - Immature Granulocytes (promyelocytes, myelocytes andmetamyelocytes) > 1% indicates that a LEFT SHIFT is Present. Performed By: #### L 500.4050, L501.5200, L100.0100 ####[facility] [address] [place], [address] Lymphocytes/100 WBC (Bld) 13.6 % Low 19-[address] [facility] Comment on above: Performed By: #### L 500.4050, L501.5200, L100.0100 ####[facility] [address] [place], [address] MCH (RBC) [Entitic mass] 35.2 pg High 27.0-32.[address] [facility] Comment on above: Performed By: #### L 500.4050, L501.5200, L100.0100 ####[facility] [address] [place], [address] MCHC (RBC) [Mass/Vol] 33.3 g/dL Normal 32-36 [facility] Comment on above: Performed By: #### L 500.4050, L501.5200, L100.0100 ####[facility] [address] [place], [address] MCV (RBC) [Entitic vol] 105.7 fL High 80-94 [facility] Comment on above: Performed By: #### L 500.4050, L501.5200, L100.0100 ####[facility] [address] [place], [address] Monocytes/100 WBC (Bld) 19.9 % High 0-10 [facility] Comment on above: Performed By: #### L 500.4050, L501.5200, L100.0100 ####[facility] [address] [place], [address] Neutrophils/100 WBC (Bld) 64.3 % Normal 47-[address] [facility] Comment on above: Performed By: #### L 500.4050, L501.5200, L100.0100 ####[facility] [address] [place], [address] Nucleated RBC (Bld) [#/Vol] 0 10*3/uL Normal 0-[address] [facility] Comment on above: Performed By: #### L 500.4050, L501.5200, L100.0100 ####[facility] [address] [place], [address] Platelet mean volume (Bld) [Entitic vol] 9.1 fL Normal 6.2-12.[address] [facility] Comment on above: Performed By: #### L 500.4050, L501.5200, L100.0100 ####[facility] [address] [place], [address] Platelets (Bld) [#/Vol] 152 10*3/uL Normal 150-[address] [facility] Comment on above: Performed By: #### L 500.4050, L501.5200, L100.0100 ####[facility] [address] [place], [address] RBC (Bld) [#/Vol] 2.81 10*6/uL Low 4.6-6.2 [facility] Comment on above: Performed By: #### L 500.4050, L501.5200, L100.0100 ####[facility] [address] [place], [address] RDW SD 66.1 fl High 35.1-43.[address] [facility] Comment on above: Performed By: #### L 500.4050, L501.5200, L100.0100 ####[facility] [address] [place], [address] WBC (Bld) [#/Vol] 6.7 10*3/uL Normal 4.4-11.0 [facility] Comment on above: Performed By: #### L 500.4050, L501.5200, L100.0100 ####[facility] [address] [place], [address] Comprehensive Metabolic [facility] 03-23-2025 Albumin [Mass/Vol] 4.0 g/dL Normal 3.4-4.8 [facility] Comment on above: Performed By: #### L 500.4050, L501.5200, L100.0100 ####[facility] [address] [place], [address] Albumin/Globulin [Mass ratio] 1.5 {ratio} Normal 0.9-2.[address] [facility] Comment on above: Performed By: #### L 500.4050, L501.5200, L100.0100 ####[facility] [address] [place], [address] ALK PHOS 120 U/L Normal 40-[address] [facility] Comment on above: Performed By: #### L 500.4050, L501.5200, L100.0100 ####[facility] [address] [place], [address] ALT [Catalytic activity/Vol] 26 U/L Normal <=[address] [facility] Comment on above: Performed By: #### L 500.4050, L501.5200, L100.0100 ####[facility] [address] [place], [address] AST [Catalytic activity/Vol] 34 U/L Normal <=[address] [facility] Comment on above: Performed By: #### L 500.4050, L501.5200, L100.0100 ####[facility] [address] [place], [address] Bilirubin [Mass/Vol] 0.49 mg/dL Normal 0.00-1.30 [facility] Comment on above: Performed By: #### L 500.4050, L501.5200, L100.0100 ####[facility] [address] [place], [address] BUN/CRE 20.6 RATIO High 10-[address] [facility] Comment on above: Performed By: #### L 500.4050, L501.5200, L100.0100 ####[facility] [address] [place], [address] Calcium [Mass/Vol] 9.3 mg/dL Normal 7.6-11.0 [facility] Comment on above: Performed By: #### L 500.4050, L501.5200, L100.0100 ####[facility] [address] [place], [address] Chloride [Moles/Vol] 103 mmol/L Normal 98-108 [facility] Comment on above: Performed By: #### L 500.4050, L501.5200, L100.0100 ####[facility] [address] [place], [address] CO2 [Moles/Vol] 26.6 mmol/L Normal 21.0-32.[address] [facility] Comment on above: Performed By: #### L 500.4050, L501.5200, L100.0100 ####[facility] [address] [place], [address] Creatinine [Mass/Vol] 0.64 mg/dL Low 0.70-1.20 [facility] Comment on above: Performed By: #### L 500.4050, L501.5200, L100.0100 ####[facility] [address] [place], [address] ECRCL 63.09 ml/min Normal 50-[address] [facility] Comment on above: Performed By: #### L 500.4050, L501.5200, L100.0100 ####[facility] [address] [place], [address] GAP 10 Normal 5-[address] [facility] Comment on above: Performed By: #### L 500.4050, L501.5200, L100.0100 ####[facility] [address] [place], [address] GFR/1.73 sq M.predicted among non-blacks MDRD (S/P/Bld) [Vol rate/Area] 99 mL/min/{1.73_m2} Normal >[address] [facility] Comment on above: Result Comment: mL/m in/1.73m2 CKD-EPI Creatinine Equation (2020) Performed By: #### L 500.4050, L501.5200, L100.0100 ####[facility] [address] [place], [address] Globulin (S) [Mass/Vol] 2.7 g/dL Normal 2.2-4.2 [facility] Comment on above: Performed By: #### L 500.4050, L501.5200, L100.0100 ####[facility] [address] [place], [address] Glucose [Mass/Vol] 106 mg/dL High 70-99 [facility] Comment on above: Performed By: #### L 500.4050, L501.5200, L100.0100 ####[facility] [address] [place], [address] Potassium [Moles/Vol] 4.2 mmol/L Normal 3.3-5.1 [facility] Comment on above: Performed By: #### L 500.4050, L501.5200, L100.0100 ####[facility] [address] [place], [address] Sodium [Moles/Vol] 140 mmol/L Normal 133-145 [facility] Comment on above: Performed By: #### L 500.4050, L501.5200, L100.0100 ####[facility] [address] [place], [address] T PROT 6.7 g/dL Normal 5.9-8.[address] [facility] Comment on above: Performed By: #### L 500.4050, L501.5200, L100.0100 ####[facility] [address] [place], [address] Urea nitrogen [Mass/Vol] 13 mg/dL Normal 4-[address] [facility] Comment on above: Performed By: #### L 500.4050, L501.5200, L100.0100 ####[facility] [address] [place], [address] Magnesiumon 03-23-2025 Magnesium [Mass/Vol] 2.5 mg/dL High 1.5-2.2 [facility] Comment on above: Performed By: #### L 500.4050, L501.5200, L100.0100 ####[facility] [address] [place], [address] Oncology Visit Reporton 02-25 Oncology Visit Report Normal [facility] Phosphoruson 03-23-2025 Phosphate [Mass/Vol] 3.9 mg/dL Normal 2.7-4.5 [facility] Comment on above: Performed By: #### L 501.2300 ####[facility] [address] [place], [address] Absolute lymphocyte countOrd ered By: Zulay Celis on 03-09-2025 Lymphocytes Auto (Unsp spec) [#/Vol] 1.12 10*3/uL 0.83-4.[address] [facility] Absolute neutrophil countOrd ered By: Zulay Mohrmartínez on 03-09-2025 Neutrophils (Bld) [#/Vol] 1.1 10*3/uL Low 2.0-7.[address] [facility] Anion gap in Serum or Plasma Ordered By: Zulay Celis on 03-09-2025 Anion gap [Moles/Vol] 10 mmol/L - [facility] Automated lymphocyte count a s percentage of total leukocytesOrdered By: Inesmat Celis on 03-09-2025 Lymphocytes/100 WBC Auto (Unsp spec) 27.5 % - [facility] BUN/creatinine ratioOrdered By: [facility] Troymat Celis on 03-09-2025 Urea nitrogen/Creatinine [Mass ratio] 20.2 mg/mg High 03-[address] [facility] Basophil percentageOrdered B y: Zulay Celis on 03-09-2025 Basophils/100 WBC (Bld) 1.5 % High 0-1 [facility] Bilirubin, totalOrdered By: Inesmat Celis on 03-09-2025 Bilirubin [Mass/Vol] 0.47 mg/dL 0.00-1.30 [facility] Blood manual differential co mment interpretation (narrative result)Ordered By: Inesmat Celis on 03-09-2025 Manual differential comment Jaun (Bld) [Interp] COMMENT [facility] Comment on above: MONOCYTOSIS. CBC W/Diff, Automatedon 02-24 Anisocytosis Ql (Bld) 2+ Normal [facility] Comment on above: Performed By: #### L 100.0100, L500.4050, L501.5200 ####[facility] [address] [place], [address] SMEAR COMMENT COMMENT Normal [facility] Comment on above: Result Comment: MONO CYTOSIS. Performed By: #### L 100.0100, L500.4050, L501.5200 ####[facility] [address] [place], [address] Carbon dioxide, total [Moles /volume] in Central venous bloodOrdered By: Zulay Celis on 03-09-2025 CO2 [Moles/Vol] 27.8 mmol/L 21.0-32.[address] [facility] Chloride assayOrdered By: Nasima Celis on 03-09-2025 Chloride [Moles/Vol] 103 mmol/L 98-108 [facility] Comprehensive Metabolic Prof ilon 03-09-2025 Albumin [Mass/Vol] 3.9 g/dL Normal 3.4-4.8 [facility] Comment on above: Performed By: #### L 100.0100, L500.4050, L501.5200 ####[facility] [address] [place], [address] Albumin/Globulin [Mass ratio] 1.3 {ratio} Normal 0.9-2.[address] [facility] Comment on above: Performed By: #### L 100.0100, L500.4050, L501.5200 ####[facility] [address] [place], [address] ALK PHOS 183 U/L High 40-[address] [facility] Comment on above: Performed By: #### L 100.0100, L500.4050, L501.5200 ####[facility] [address] [place], [address] ALT [Catalytic activity/Vol] 23 U/L Normal <=[address] [facility] Comment on above: Performed By: #### L 100.0100, L500.4050, L501.5200 ####[facility] [address] [place], [address] AST [Catalytic activity/Vol] 38 U/L Normal <=[address] [facility] Comment on above: Performed By: #### L 100.0100, L500.4050, L501.5200 ####[facility] [address] [place], [address] Bilirubin [Mass/Vol] 0.47 mg/dL Normal 0.00-1.30 [facility] Comment on above: Performed By: #### L 100.0100, L500.4050, L501.5200 ####[facility] [address] [place] [address] BUN/CRE 20.2 RATIO High 10-[address] [facility] Comment on above: Performed By: #### L 100.0100, L500.4050, L501.5200 ####[facility] [address] [place], [address] Calcium [Mass/Vol] 9.5 mg/dL Normal 7.6-11.0 [facility] Comment on above: Performed By: #### L 100.0100, L500.4050, L501.5200 ####[facility] [address] [place], [address] Chloride [Moles/Vol] 103 mmol/L Normal 98-108 [facility] Comment on above: Performed By: #### L 100.0100, L500.4050, L501.5200 ####[facility] [address] [place], [address] CO2 [Moles/Vol] 27.8 mmol/L Normal 21.0-32.[address] [facility] Comment on above: Performed By: #### L 100.0100, L500.4050, L501.5200 ####[facility] [address] [place], [address] Creatinine [Mass/Vol] 0.65 mg/dL Low 0.70-1.20 [facility] Comment on above: Performed By: #### L 100.0100, L500.4050, L501.5200 ####[facility] [address] [place], [address] ECRCL 62.58 ml/min Normal 50-[address] [facility] Comment on above: Performed By: #### L 100.0100, L500.4050, L501.5200 ####[facility] [address] [place], [address] GAP 10 Normal 5-[address] [facility] Comment on above: Performed By: #### L 100.0100, L500.4050, L501.5200 ####[facility] [address] [place], [address] GFR/1.73 sq M.predicted among non-blacks MDRD (S/P/Bld) [Vol rate/Area] 98 mL/min/{1.73_m2} Normal >[address] [facility] Comment on above: Result Comment: mL/m in/1.73m2 CKD-EPI Creatinine Equation (2020) Performed By: #### L 100.0100, L500.4050, L501.5200 ####[facility] [address] [place], [address] Globulin (S) [Mass/Vol] 3.1 g/dL Normal 2.2-4.2 [facility] Comment on above: Performed By: #### L 100.0100, L500.4050, L501.5200 ####[facility] [address] [place], [address] Glucose [Mass/Vol] 126 mg/dL High 70-99 [facility] Comment on above: Performed By: #### L 100.0100, L500.4050, L501.5200 ####[facility] [address] [place], [address] Potassium [Moles/Vol] 4.0 mmol/L Normal 3.3-5.1 [facility] Comment on above: Performed By: #### L 100.0100, L500.4050, L501.5200 ####[facility] [address] [place], [address] Sodium [Moles/Vol] 140 mmol/L Normal 133-145 [facility] Comment on above: Performed By: #### L 100.0100, L500.4050, L501.5200 ####[facility] [address] [place], [address] T PROT 6.9 g/dL Normal 5.9-8.[address] [facility] Comment on above: Performed By: #### L 100.0100, L500.4050, L501.5200 ####[facility] [address] [place], [address] Urea nitrogen [Mass/Vol] 13 mg/dL Normal 4-[address] [facility] Comment on above: Performed By: #### L 100.0100, L500.4050, L501.5200 ####[facility] [address] [place], [address] Eosinophil percentageOrdered By: Zulay Celis on 03-09-2025 Eosinophils/100 WBC (Bld) 2.0 % 0-[address] [facility] Erythrocyte distribution wid th ratioOrdered By: [facility] Troymat Celis on 03-09-2025 Erythrocyte distribution width (RBC) [Ratio] 17.1 % High 11.6-14.[address] [facility] Erythrocyte distribution wid th standard deviationOrdered By: [facility] Troymat Celis on 03-09-2025 Erythrocyte distribution width (RBC) [Ratio] 67.9 fl High 35.1-43.[address] [facility] Glomerular filtration rate ( GFR) estimation/1.73 sq m using serum, plasma, or whole bOrdered By: Zulay Celis on 03-09-2025 GFR/1.73 sq M.predicted among non-blacks MDRD (S/P/Bld) [Vol rate/Area] 98 mL/min/{1.73_m2} >[address] [facility] Comment on above: mL/min/1.73m2 CKD-EP I Creatinine Equation (2020) Hematocrit Auto (Bld) [Volum e fraction]Ordered By: Zulay Celis on 03-09-2025 Hematocrit (Bld) [Volume fraction] 32.0 % Low 40-[address] [facility] Hemoglobin measurementOrdere d By: Zulay Celis on 03-09-2025 Hemoglobin (Bld) [Mass/Vol] 10.4 g/dL Low 13.0-16.[address] [facility] Immature granulocytes/100 WB C Auto (Bld)Ordered By: [facility] Troymat Celis on 03-09-2025 Immature granulocytes/100 WBC (Bld) 2.500 % High 0.0-0.[address] [facility] Comment on above: IG% - Immature Granu locytes (promyelocytes, myelocytes and metamyelocytes) > 1% indicates that a LEFT SHIFT is Present. Laboratory - Chemistry and C hemistry - challengeOrdered By: [facility] Troymat Celis on 03-09-2025 AST [Catalytic activity/Vol] 38 U/L <[address] [facility] Laboratory - Hematology and Cell countsOrdered By: [facility] Troymat Celis on 03-09-2025 Anisocytosis Ql (Bld) 2+ [facility] MCV (mean corpuscular volume ) determinationOrdered By: [facility] Troymat Celis on 03-09-2025 MCV (RBC) [Entitic vol] 107.0 fL High 80-94 [facility] Magnesiumon 03-09-2025 Magnesium [Mass/Vol] 2.5 mg/dL High 1.5-2.2 [facility] Comment on above: Performed By: #### L 100.0100, L500.4050, L501.5200 ####[facility] [address] [place], [place], [id number] Magnesium measurement (mass/ volume)Ordered By: Zulay Celis on 03-09-2025 Magnesium (Unsp spec) [Mass/Vol] 2.5 mg/dL High 1.5-2.[address] [facility] Mean corpuscular hemoglobin (MCH) determinationOrdered By: [facility] Troymat Celis on 03-09-2025 MCH (RBC) [Entitic mass] 34.8 pg High 27.0-32.[address] [facility] Mean corpuscular hemoglobin concentration (MCHC) determinationOrdered By: Zulay Celis on 03-09-2025 MCHC (RBC) [Mass/Vol] 32.5 g/dL 32-36 [facility] Mean platelet volume determi nationOrdered By: Zulay Celis on 03-09-2025 Platelet mean volume (Bld) [Entitic vol] 8.7 fL 6.2-12.[address] [facility] Monocyte percentageOrdered B y: Zulay Celis on 03-09-2025 Monocytes/100 WBC (Bld) 40.0 % High 0-10 [facility] Neutrophil percentageOrdered By: Zulay Celis on 03-09-2025 Neutrophils/100 WBC (Bld) 26.5 % Low 47-[address] [facility] Nucleated red blood cell per centageOrdered By: Zulay Celis on 03-09-2025 Nucleated RBC/100 WBC (Bld) [Ratio] 0.5 % 0-[address] [facility] Oncology Visit Reporton 02-24 Oncology Visit Report Normal [facility] Platelet countOrdered By: Nasima Celis on 03-09-2025 Platelets (Bld) [#/Vol] 309 10*3/uL 150-[address] [facility] Potassium measurement (mass/ volume)Ordered By: Zulay Celis on 03-09-2025 Potassium (Unsp spec) [Mass/Vol] 4.0 mmol/L 3.3-5.[address] [facility] RBC Auto (Bld) [#/Vol]Ordere d By: Zulay Celis on 03-09-2025 RBC (Bld) [#/Vol] 2.99 10*6/uL Low 4.6-6.2 [facility] Serum creatinine measurement (mass/volume)Ordered By: Zulay Celis on 03-09-2025 Creatinine [Mass/Vol] 0.65 mg/dL Low 0.70-1.20 [facility] Serum globulin measurementOr dered By: Zulay Celis on 03-09-2025 Globulin (S) [Mass/Vol] 3.1 g/dL 2.2-4.2 [facility] Serum glucose measurement (m ass/volume)Ordered By: Zulay Celis on 03-09-2025 Glucose [Mass/Vol] 126 mg/dL High 70-99 [facility] Serum or plasma alanine lucia otransferase (ALT) measurementOrdered By: Zulay Celis on 03-09-2025 ALT [Catalytic activity/Vol] 23 U/L <[address] [facility] Serum or plasma albumin darian urement (mass/volume)Ordered By: Zulay Celis on 03-09-2025 Albumin [Mass/Vol] 3.9 g/dL 3.4-4.8 [facility] Serum or plasma albumin/glob ulin mass ratioOrdered By: Zulay Celis on 03-09-2025 Albumin/Globulin [Mass ratio] 1.3 {ratio} 0.9-2.[address] [facility] Serum or plasma alkaline trudi sphatase measurementOrdered By: Zulay Celis on 03-09-2025 ALP [Catalytic activity/Vol] 183 U/L High 40-[address] [facility] Serum or plasma calcium darian urement (mass/volume)Ordered By: Zulay Celis on 03-09-2025 Calcium [Mass/Vol] 9.5 mg/dL 7.6-11.0 [facility] Serum or plasma urea nitroge n measurement (mass/volume)Ordered By: Zulay Celis on 03-09-2025 Urea nitrogen [Mass/Vol] 13 mg/dL 4-[address] [facility] Sodium levelOrdered By: Ines Celis on 03-09-2025 Sodium [Moles/Vol] 140 mmol/L 133-145 [facility] Total proteinOrdered By: Kostas Celis on 03-09-2025 Protein [Mass/Vol] 6.9 g/dL 5.9-8.4 [facility] White blood cell (WBC) count Ordered By: Zulay Celis on 03-09-2025 WBC (Bld) [#/Vol] 4.1 10*3/uL Low 4.4-11.0 [facility] Absolute lymphocyte countOrd ered By: Zulay Celis on 03-02-2025 Lymphocytes Auto (Unsp spec) [#/Vol] 0.77 10*3/uL Low 0.83-4.[address] [facility] Absolute neutrophil countOrd ered By: Zulay Celis on 03-02-2025 Neutrophils (Bld) [#/Vol] 0.9 10*3/uL Low 2.0-7.[address] [facility] Anion gap in Serum or Plasma Ordered By: Zulay Celis on 03-02-2025 Anion gap [Moles/Vol] 9 mmol/L - [facility] Automated lymphocyte count a s percentage of total leukocytesOrdered By: Zulay Celis on 03-02-2025 Lymphocytes/100 WBC Auto (Unsp spec) 29.5 % - [facility] BUN/creatinine ratioOrdered By: [facility] Troymat Celis on 03-02-2025 Urea nitrogen/Creatinine [Mass ratio] 18.0 mg/mg 03-[address] [facility] Basophil percentageOrdered B y: Zulay Celis on 03-02-2025 Basophils/100 WBC (Bld) 1.5 % High 0-1 [facility] Bilirubin, totalOrdered By: Zulay Celis on 03-02-2025 Bilirubin [Mass/Vol] 0.56 mg/dL 0.00-1.30 [facility] Blood polychromasia detectio n by light microscopyOrdered By: Zulay Celis on 03-02-2025 Polychromasia LM Ql (Bld) RARE [facility] CBC W/Diff, Automatedon Anisocytosis Ql (Bld) RARE Normal [facility] Comment on above: Performed By: #### L 100.0100, L501.5200, L500.4050 ####[facility] [address] [place], [place], [id number] POLYCHROMASIA RARE Normal [facility] Comment on above: Performed By: #### L 100.0100, L501.5200, L500.4050 ####[facility] [address] [place], [place], [id number] Carbon dioxide, total [Moles /volume] in Central venous bloodOrdered By: Zulay Celis on 03-02-2025 CO2 [Moles/Vol] 26.5 mmol/L 21.0-32.[address] [facility] Chloride assayOrdered By: Nasima Celis on 03-02-2025 Chloride [Moles/Vol] 102 mmol/L 98-108 [facility] Comprehensive Metabolic Prof ilon 03-02-2025 Albumin [Mass/Vol] 3.9 g/dL Normal 3.4-4.8 [facility] Comment on above: Performed By: #### L 100.0100, L501.5200, L500.4050 ####[facility] [address] [place], [address] Albumin/Globulin [Mass ratio] 1.4 {ratio} Normal 0.9-2.[address] [facility] Comment on above: Performed By: #### L 100.0100, L501.5200, L500.4050 ####[facility] [address] [place], [address] ALK PHOS 165 U/L High 40-[address] [facility] Comment on above: Performed By: #### L 100.0100, L501.5200, L500.4050 ####[facility] [address] [place], [address] ALT [Catalytic activity/Vol] 27 U/L Normal <=[address] [facility] Comment on above: Performed By: #### L 100.0100, L501.5200, L500.4050 ####[facility] [address] [place], [address] AST [Catalytic activity/Vol] 35 U/L Normal <=[address] [facility] Comment on above: Performed By: #### L 100.0100, L501.5200, L500.4050 ####[facility] [address] [place], [address] Bilirubin [Mass/Vol] 0.56 mg/dL Normal 0.00-1.30 [facility] Comment on above: Performed By: #### L 100.0100, L501.5200, L500.4050 ####[facility] [address] [place], [address] BUN/CRE 18.0 RATIO Normal 10-[address] [facility] Comment on above: Performed By: #### L 100.0100, L501.5200, L500.4050 ####[facility] [address] [place], [address] Calcium [Mass/Vol] 8.8 mg/dL Normal 7.6-11.0 [facility] Comment on above: Performed By: #### L 100.0100, L501.5200, L500.4050 ####[facility] [address] [place], [address] Chloride [Moles/Vol] 102 mmol/L Normal 98-108 [facility] Comment on above: Performed By: #### L 100.0100, L501.5200, L500.4050 ####[facility] [address] [place], [address] CO2 [Moles/Vol] 26.5 mmol/L Normal 21.0-32.[address] [facility] Comment on above: Performed By: #### L 100.0100, L501.5200, L500.4050 ####[facility] [address] [place], [address] Creatinine [Mass/Vol] 0.67 mg/dL Low 0.70-1.20 [facility] Comment on above: Performed By: #### L 100.0100, L501.5200, L500.4050 ####[facility] [address] [place], [address] ECRCL 63.98 ml/min Normal 50-[address] [facility] Comment on above: Performed By: #### L 100.0100, L501.5200, L500.4050 ####[facility] [address] [place], [address] GAP 9 Normal 5-[address] [facility] Comment on above: Performed By: #### L 100.0100, L501.5200, L500.4050 ####[facility] [address] [place], [address] GFR/1.73 sq M.predicted among non-blacks MDRD (S/P/Bld) [Vol rate/Area] 97 mL/min/{1.73_m2} Normal >[address] [facility] Comment on above: Result Comment: mL/m in/1.73m2 CKD-EPI Creatinine Equation (2020) Performed By: #### L 100.0100, L501.5200, L500.4050 ####[facility] [address] [place], [address] Globulin (S) [Mass/Vol] 2.9 g/dL Normal 2.2-4.2 [facility] Comment on above: Performed By: #### L 100.0100, L501.5200, L500.4050 ####[facility] [address] [place], [address] Glucose [Mass/Vol] 124 mg/dL High 70-99 [facility] Comment on above: Performed By: #### L 100.0100, L501.5200, L500.4050 ####[facility] [address] [place], [address] Potassium [Moles/Vol] 4.2 mmol/L Normal 3.3-5.1 [facility] Comment on above: Performed By: #### L 100.0100, L501.5200, L500.4050 ####[facility] [address] [place], [address] Sodium [Moles/Vol] 138 mmol/L Normal 133-145 [facility] Comment on above: Performed By: #### L 100.0100, L501.5200, L500.4050 ####[facility] [address] [place], [address] T PROT 6.8 g/dL Normal 5.9-8.[address] [facility] Comment on above: Performed By: #### L 100.0100, L501.5200, L500.4050 ####[facility] [address] [place], [address] Urea nitrogen [Mass/Vol] 12 mg/dL Normal 4-[address] [facility] Comment on above: Performed By: #### L 100.0100, L501.5200, L500.4050 ####[facility] [address] [place], [address] Eosinophil percentageOrdered By: Zulay Celis on 03-02-2025 Eosinophils/100 WBC (Bld) 2.7 % 0-[address] [facility] Erythrocyte distribution wid th ratioOrdered By: [facility] Troymat Celis on 03-02-2025 Erythrocyte distribution width (RBC) [Ratio] 18.1 % High 11.6-14.[address] [facility] Erythrocyte distribution wid th standard deviationOrdered By: Zulay Celis on 03-02-2025 Erythrocyte distribution width (RBC) [Ratio] 70.1 fl High 35.1-43.[address] [facility] Glomerular filtration rate ( GFR) estimation/1.73 sq m using serum, plasma, or whole bOrdered By: Zulay Celis on 03-02-2025 GFR/1.73 sq M.predicted among non-blacks MDRD (S/P/Bld) [Vol rate/Area] 97 mL/min/{1.73_m2} >[address] [facility] Comment on above: mL/min/1.73m2 CKD-EP I Creatinine Equation (2020) Hematocrit Auto (Bld) [Volum e fraction]Ordered By: Zulay Celis on 03-02-2025 Hematocrit (Bld) [Volume fraction] 27.9 % Low 40-[address] [facility] Hemoglobin measurementOrdere d By: Zulay Celis on 03-02-2025 Hemoglobin (Bld) [Mass/Vol] 9.4 g/dL Low 13.0-16.[address] [facility] Immature granulocytes/100 WB C Auto (Bld)Ordered By: Zulay Celis on 03-02-2025 Immature granulocytes/100 WBC (Bld) 0.400 % 0.0-0.[address] [facility] Comment on above: IG% - Immature Granu locytes (promyelocytes, myelocytes and metamyelocytes) > 1% indicates that a LEFT SHIFT is Present. L509.6001on 03-02-2025 CORTISOL 13.80 ug/dL Normal 6.02-18.[address] [facility] Comment on above: Performed By: #### L 501.9520, L501.2300, L506.0400, L509.6001 ####[facility] [address] [place], [address] Laboratory - Chemistry and C hemistry - challengeOrdered By: Zulay Celis on 03-02-2025 AST [Catalytic activity/Vol] 35 U/L <[address] [facility] Laboratory - Hematology and Cell countsOrdered By: Zulay Celis on 03-02-2025 Anisocytosis Ql (Bld) RARE [facility] MCV (mean corpuscular volume ) determinationOrdered By: Zulay Celis on 03-02-2025 MCV (RBC) [Entitic vol] 106.5 fL High 80-94 [facility] Magnesiumon 03-02-2025 Magnesium [Mass/Vol] 2.5 mg/dL High 1.5-2.2 [facility] Comment on above: Performed By: #### L 100.0100, L501.5200, L500.4050 ####[facility] [address] [place], [address] Magnesium measurement (mass/ volume)Ordered By: Zulay Celis on 03-02-2025 Magnesium (Unsp spec) [Mass/Vol] 2.5 mg/dL High 1.5-2.[address] [facility] Mean corpuscular hemoglobin (MCH) determinationOrdered By: Zulay Celis on 03-02-2025 MCH (RBC) [Entitic mass] 35.9 pg High 27.0-32.[address] [facility] Mean corpuscular hemoglobin concentration (MCHC) determinationOrdered By: Zulay Celis on 03-02-2025 MCHC (RBC) [Mass/Vol] 33.7 g/dL 32-36 [facility] Mean platelet volume determi nationOrdered By: Zulay Celis on 03-02-2025 Platelet mean volume (Bld) [Entitic vol] 9.7 fL 6.2-12.[address] [facility] Monocyte percentageOrdered B y: Zulay Celis on 03-02-2025 Monocytes/100 WBC (Bld) 33.0 % High 0-10 [facility] Neutrophil percentageOrdered By: Zulay Celis on 03-02-2025 Neutrophils/100 WBC (Bld) 32.9 % Low 47-[address] [facility] Nucleated red blood cell per centageOrdered By: [facility] Troymat Celis on 03-02-2025 Nucleated RBC/100 WBC (Bld) [Ratio] 0 % 0-[address] [facility] Oncology Visit Reporton 10-0 Oncology Visit Report Normal [facility] Phosphoruson 03-02-2025 Phosphate [Mass/Vol] 3.2 mg/dL Normal 2.7-4.5 [facility] Comment on above: Performed By: #### L 501.9520, L501.2300, L506.0400, L509.6001 ####[facility] [address] [place], [address] Platelet countOrdered By: Nasima Celis on 03-02-2025 Platelets (Bld) [#/Vol] 247 10*3/uL 150-[address] [facility] Potassium measurement (mass/ volume)Ordered By: Zulay Celis on 03-02-2025 Potassium (Unsp spec) [Mass/Vol] 4.2 mmol/L 3.3-5.[address] [facility] RBC Auto (Bld) [#/Vol]Ordere d By: Zulay Celis on 03-02-2025 RBC (Bld) [#/Vol] 2.62 10*6/uL Low 4.6-6.2 [facility] Serum creatinine measurement (mass/volume)Ordered By: Zulay Celis on 03-02-2025 Creatinine [Mass/Vol] 0.67 mg/dL Low 0.70-1.20 [facility] Serum globulin measurementOr dered By: Zulay Celis on 03-02-2025 Globulin (S) [Mass/Vol] 2.9 g/dL 2.2-4.2 [facility] Serum glucose measurement (m ass/volume)Ordered By: Zulay Celis on 03-02-2025 Glucose [Mass/Vol] 124 mg/dL High 70-99 [facility] Serum or plasma alanine lucia otransferase (ALT) measurementOrdered By: Zulay Celis on 03-02-2025 ALT [Catalytic activity/Vol] 27 U/L <[address] [facility] Serum or plasma albumin darian urement (mass/volume)Ordered By: Zulay Celis on 03-02-2025 Albumin [Mass/Vol] 3.9 g/dL 3.4-4.8 [facility] Serum or plasma albumin/glob ulin mass ratioOrdered By: Zulay Celis on 03-02-2025 Albumin/Globulin [Mass ratio] 1.4 {ratio} 0.9-2.[address] [facility] Serum or plasma alkaline trudi sphatase measurementOrdered By: Zulay Celis on 03-02-2025 ALP [Catalytic activity/Vol] 165 U/L High 40-[address] [facility] Serum or plasma calcium darian urement (mass/volume)Ordered By: Zulay Celis on 03-02-2025 Calcium [Mass/Vol] 8.8 mg/dL 7.6-11.0 [facility] Serum or plasma cortisol sandra surement (mass/volume)Ordered By: Zulay Celis on 03-02-2025 Cortisol [Mass/Vol] 13.80 ug/dL 6.02-18.40 [facility] Serum or plasma urea nitroge n measurement (mass/volume)Ordered By: Zulay Celis on 03-02-2025 Urea nitrogen [Mass/Vol] 12 mg/dL 4-19 [facility] [facility] Sodium levelOrdered By: Ines rivero Vimal on 03-02-2025 Sodium [Moles/Vol] 138 mmol/L 133-145 [facility] T4 Free Directon 03-02-2025 T4 FREE DIRECT 1.20 ng/dL Normal 0.76-1.[address] [facility] Comment on above: Performed By: #### L 501.9520, L501.2300, L506.0400, L509.6001 ####[facility] [address] [place], [place], [id number] T4 freeOrdered By: Zulay quezada on 03-02-2025 Free T4 [Mass/Vol] 1.20 ng/dL 0.76-1.46 [facility] TSH DL <= 0.005 mIU/L QnOrde red By: Zulay Celis on 03-02-2025 TSH Qn 3.560 uIU/mL 0.300-4.[address] [facility] Thyroid Stim Hormone (TSH)on 03-02-2025 TSH 3.560 uIU/mL Normal 0.300-4.[address] [facility] Comment on above: Performed By: #### L 501.9520, L501.2300, L506.0400, L509.6001 ####[facility] [address] [place], [address] Total proteinOrdered By: Kostas anabelle Celis on 03-02-2025 Protein [Mass/Vol] 6.8 g/dL 5.9-8.4 [facility] White blood cell (WBC) count Ordered By: Inesmat Celis on 03-02-2025 WBC (Bld) [#/Vol] 2.6 10*3/uL Low 4.4-11.0 [facility] Absolute lymphocyte countOrd ered By: Zulay Celis on 02-16-2025 Lymphocytes Auto (Unsp spec) [#/Vol] 0.85 10*3/uL 0.83-4.[address] [facility] Absolute neutrophil countOrd ered By: Zulay Celis on 02-16-2025 Neutrophils (Bld) [#/Vol] 1.6 10*3/uL Low 2.0-7.[address] [facility] Anion gap in Serum or Plasma Ordered By: Zulay Vimal on 02-16-2025 Anion gap [Moles/Vol] 10 mmol/L 5-15 [facility] Automated lymphocyte count a s percentage of total leukocytesOrdered By: Zulay Vimal on 02-16-2025 Lymphocytes/100 WBC Auto (Unsp spec) 25.1 % 19-[address] [facility] BUN/creatinine ratioOrdered By: [facility] Troymat Vimal on 02-16-2025 Urea nitrogen/Creatinine [Mass ratio] 23.3 mg/mg High 10-[address] [facility] Basophil percentageOrdered B y: Zulay Vimal on 02-16-2025 Basophils/100 WBC (Bld) 1.2 % High 0-1 [facility] Bilirubin, totalOrdered By: Zulay Vimal on 02-16-2025 Bilirubin [Mass/Vol] 0.51 mg/dL 0.00-1.30 [facility] CBC W/Diff, Automatedon 01-26 Anisocytosis Ql (Bld) 2+ Normal [facility] Comment on above: Performed By: #### L 501.5200, L500.4050, L100.0100 ####[facility] [address] [place], [place], [id number] Carbon dioxide, total [Moles /volume] in Central venous bloodOrdered By: Zulay Celis on 02-16-2025 CO2 [Moles/Vol] 25.5 mmol/L 21.0-32.[address] [facility] Chloride assayOrdered By: Nasima Celis on 02-16-2025 Chloride [Moles/Vol] 103 mmol/L 98-108 [facility] Comprehensive Metabolic Prof ilon 02-16-2025 Albumin [Mass/Vol] 3.8 g/dL Normal 3.4-4.8 [facility] Comment on above: Performed By: #### L 501.5200, L500.4050, L100.0100 ####[facility] [address] [place], [address] Albumin/Globulin [Mass ratio] 1.3 {ratio} Normal 0.9-2.[address] [facility] Comment on above: Performed By: #### L 501.5200, L500.4050, L100.0100 ####[facility] [address] [place], [address] ALK PHOS 152 U/L High 40-[address] [facility] Comment on above: Performed By: #### L 501.5200, L500.4050, L100.0100 ####[facility] [address] [place], [address] ALT [Catalytic activity/Vol] 25 U/L Normal <=[address] [facility] Comment on above: Performed By: #### L 501.5200, L500.4050, L100.0100 ####[facility] [address] [place], [address] AST [Catalytic activity/Vol] 31 U/L Normal <=[address] [facility] Comment on above: Performed By: #### L 501.5200, L500.4050, L100.0100 ####[facility] [address] [place], [address] Bilirubin [Mass/Vol] 0.51 mg/dL Normal 0.00-1.30 [facility] Comment on above: Performed By: #### L 501.5200, L500.4050, L100.0100 ####[facility] [address] [place], [address] BUN/CRE 23.3 RATIO High 10-[address] [facility] Comment on above: Performed By: #### L 501.5200, L500.4050, L100.0100 ####[facility] [address] [place], [address] Calcium [Mass/Vol] 9.2 mg/dL Normal 7.6-11.0 [facility] Comment on above: Performed By: #### L 501.5200, L500.4050, L100.0100 ####[facility] [address] [place], [address] Chloride [Moles/Vol] 103 mmol/L Normal 98-108 [facility] Comment on above: Performed By: #### L 501.5200, L500.4050, L100.0100 ####[facility] [address] [place], [address] CO2 [Moles/Vol] 25.5 mmol/L Normal 21.0-32.[address] [facility] Comment on above: Performed By: #### L 501.5200, L500.4050, L100.0100 ####[facility] [address] [place], [address] Creatinine [Mass/Vol] 0.65 mg/dL Low 0.70-1.20 [facility] Comment on above: Performed By: #### L 501.5200, L500.4050, L100.0100 ####[facility] [address] [place], [address] ECRCL 62.70 ml/min Normal 50-[address] [facility] Comment on above: Performed By: #### L 501.5200, L500.4050, L100.0100 ####[facility] [address] [place], [address] GAP 10 Normal 5-[address] [facility] Comment on above: Performed By: #### L 501.5200, L500.4050, L100.0100 ####[facility] [address] [place], [address] GFR/1.73 sq M.predicted among non-blacks MDRD (S/P/Bld) [Vol rate/Area] 98 mL/min/{1.73_m2} Normal >[address] [facility] Comment on above: Result Comment: mL/m in/1.73m2 CKD-EPI Creatinine Equation (2020) Performed By: #### L 501.5200, L500.4050, L100.0100 ####[facility] [address] [place], [address] Globulin (S) [Mass/Vol] 3.0 g/dL Normal 2.2-4.2 [facility] Comment on above: Performed By: #### L 501.5200, L500.4050, L100.0100 ####[facility] [address] [place], [address] Glucose [Mass/Vol] 118 mg/dL High 70-99 [facility] Comment on above: Performed By: #### L 501.5200, L500.4050, L100.0100 ####[facility] [address] [place], [address] Potassium [Moles/Vol] 4.3 mmol/L Normal 3.3-5.1 [facility] Comment on above: Performed By: #### L 501.5200, L500.4050, L100.0100 ####[facility] [address] [place], [address] Sodium [Moles/Vol] 139 mmol/L Normal 133-145 [facility] Comment on above: Performed By: #### L 501.5200, L500.4050, L100.0100 ####[facility] [address] [place], [address] T PROT 6.7 g/dL Normal 5.9-8.[address] [facility] Comment on above: Performed By: #### L 501.5200, L500.4050, L100.0100 ####[facility] [address] [place], [address] Urea nitrogen [Mass/Vol] 15 mg/dL Normal 4-[address] [facility] Comment on above: Performed By: #### L 501.5200, L500.4050, L100.0100 ####[facility] [address] [place], [address] Eosinophil percentageOrdered By: [facility] Troymat Celis on 02-16-2025 Eosinophils/100 WBC (Bld) 2.7 % 0-[address] [facility] Erythrocyte distribution wid th ratioOrdered By: [facility] Vimal on 02-16-2025 Erythrocyte distribution width (RBC) [Ratio] 18.4 % High 11.6-14.[address] [facility] Erythrocyte distribution wid th standard deviationOrdered By: [facility] Troymat Celis on 02-16-2025 Erythrocyte distribution width (RBC) [Ratio] 72.5 fl High 35.1-43.[address] [facility] Glomerular filtration rate ( GFR) estimation/1.73 sq m using serum, plasma, or whole bOrdered By: [facility] Troymat Celis on 02-16-2025 GFR/1.73 sq M.predicted among non-blacks MDRD (S/P/Bld) [Vol rate/Area] 98 mL/min/{1.73_m2} >[address] [facility] Comment on above: mL/min/1.73m2 CKD-EP I Creatinine Equation (2020) Hematocrit Auto (Bld) [Volum e fraction]Ordered By: [facility] Troymat Celis on 02-16-2025 Hematocrit (Bld) [Volume fraction] 28.5 % Low 40-[address] [facility] Hemoglobin measurementOrdere d By: Zulay Celis on 02-16-2025 Hemoglobin (Bld) [Mass/Vol] 9.1 g/dL Low 13.0-16.[address] [facility] Immature granulocytes/100 WB C Auto (Bld)Ordered By: [facility] Troymat Celis on 02-16-2025 Immature granulocytes/100 WBC (Bld) 0.300 % 0.0-0.[address] [facility] Comment on above: IG% - Immature Granu locytes (promyelocytes, myelocytes and metamyelocytes) > 1% indicates that a LEFT SHIFT is Present. Laboratory - Chemistry and C hemistry - challengeOrdered By: Zulay Celis on 02-16-2025 AST [Catalytic activity/Vol] 31 U/L <[address] [facility] Laboratory - Hematology and Cell countsOrdered By: Zulay Celis on 02-16-2025 Anisocytosis Ql (Bld) 2+ [facility] MCV (mean corpuscular volume ) determinationOrdered By: Zulay Celis on 02-16-2025 MCV (RBC) [Entitic vol] 108.4 fL High 80-94 [facility] Magnesiumon 02-16-2025 Magnesium [Mass/Vol] 2.5 mg/dL High 1.5-2.2 [facility] Comment on above: Performed By: #### L 501.5200, L500.4050, L100.0100 ####[facility] [address] [place], [address] Magnesium measurement (mass/ volume)Ordered By: Zulay Celis on 02-16-2025 Magnesium (Unsp spec) [Mass/Vol] 2.5 mg/dL High 1.5-2.[address] [facility] Mean corpuscular hemoglobin (MCH) determinationOrdered By: Zulay Celis on 02-16-2025 MCH (RBC) [Entitic mass] 34.6 pg High 27.0-32.[address] [facility] Mean corpuscular hemoglobin concentration (MCHC) determinationOrdered By: Zulay Celis on 02-16-2025 MCHC (RBC) [Mass/Vol] 31.9 g/dL Low 32-36 [facility] Mean platelet volume determi nationOrdered By: Zulay Celis on 02-16-2025 Platelet mean volume (Bld) [Entitic vol] 8.9 fL 6.2-12.[address] [facility] Monocyte percentageOrdered B y: Zulay Celis on 02-16-2025 Monocytes/100 WBC (Bld) 24.9 % High 0-10 [facility] Neutrophil percentageOrdered By: Zulay Celis on 02-16-2025 Neutrophils/100 WBC (Bld) 45.8 % Low 47-[address] [facility] Nucleated red blood cell per centageOrdered By: Zulay Celis on 02-16-2025 Nucleated RBC/100 WBC (Bld) [Ratio] 0.6 % 0-[address] [facility] Oncology Visit Reporton 01-26 Oncology Visit Report Normal [facility] Platelet countOrdered By: Nasima Celis on 02-16-2025 Platelets (Bld) [#/Vol] 250 10*3/uL 150-[address] [facility] Potassium measurement (mass/ volume)Ordered By: Zulay Celis on 02-16-2025 Potassium (Unsp spec) [Mass/Vol] 4.3 mmol/L 3.3-5.[address] [facility] RBC Auto (Bld) [#/Vol]Ordere d By: Zulay Celis on 02-16-2025 RBC (Bld) [#/Vol] 2.63 10*6/uL Low 4.6-6.2 [facility] Serum creatinine measurement (mass/volume)Ordered By: Zulay Celis on 02-16-2025 Creatinine [Mass/Vol] 0.65 mg/dL Low 0.70-1.20 [facility] Serum globulin measurementOr dered By: Zulay Celis on 02-16-2025 Globulin (S) [Mass/Vol] 3.0 g/dL 2.2-4.2 [facility] Serum glucose measurement (m ass/volume)Ordered By: Zulay Celis on 02-16-2025 Glucose [Mass/Vol] 118 mg/dL High 70-99 [facility] Serum or plasma alanine lucia otransferase (ALT) measurementOrdered By: Zulay Celis on 02-16-2025 ALT [Catalytic activity/Vol] 25 U/L <[address] [facility] Serum or plasma albumin darian urement (mass/volume)Ordered By: Zulay Celis on 02-16-2025 Albumin [Mass/Vol] 3.8 g/dL 3.4-4.8 [facility] Serum or plasma albumin/glob ulin mass ratioOrdered By: Zulay Celis on 02-16-2025 Albumin/Globulin [Mass ratio] 1.3 {ratio} 0.9-2.[address] [facility] Serum or plasma alkaline trudi sphatase measurementOrdered By: Inesmat Celis on 02-16-2025 ALP [Catalytic activity/Vol] 152 U/L High 40-[address] [facility] Serum or plasma calcium darian urement (mass/volume)Ordered By: Zulay Celis on 02-16-2025 Calcium [Mass/Vol] 9.2 mg/dL 7.6-11.0 [facility] Serum or plasma urea nitroge n measurement (mass/volume)Ordered By: Zulay Celis on 02-16-2025 Urea nitrogen [Mass/Vol] 15 mg/dL 4-[address] [facility] Sodium levelOrdered By: Ines mat Vimal on 02-16-2025 Sodium [Moles/Vol] 139 mmol/L 133-145 [facility] Total proteinOrdered By: Kostas Celis on 02-16-2025 Protein [Mass/Vol] 6.7 g/dL 5.9-8.4 [facility] White blood cell (WBC) count Ordered By: Zulay Celis on 02-16-2025 WBC (Bld) [#/Vol] 3.4 10*3/uL Low 4.4-11.0 [facility] Absolute lymphocyte countOrd ered By: Laurie Vail on 02-10-2025 Lymphocytes Auto (Unsp spec) [#/Vol] 0.91 10*3/uL 0.83-4.[address] [facility] Absolute neutrophil countOrd ered By: Laurie Vail on 02-10-2025 Neutrophils (Bld) [#/Vol] 1.3 10*3/uL Low 2.0-7.[address] [facility] Anion gap in Serum or Plasma Ordered By: Laurie Vail on 02-10-2025 Anion gap [Moles/Vol] 10 mmol/L 5-15 [facility] Automated lymphocyte count a s percentage of total leukocytesOrdered By: Laurie Vail on 02-10-2025 Lymphocytes/100 WBC Auto (Unsp spec) 29.5 % 19-[address] [facility] BUN/creatinine ratioOrdered By: Laurie Vail on 02-10-2025 Urea nitrogen/Creatinine [Mass ratio] 20.9 mg/mg High 10-[address] [facility] Basic Metabolic Profile (BMP )on 02-10-2025 BUN/CRE 20.9 RATIO High 10-[address] [facility] Comment on above: Performed By: #### L 100.0100, L500.2500 ####[facility] [address] [place], [address] Calcium [Mass/Vol] 9.1 mg/dL Normal 7.6-11.0 [facility] Comment on above: Performed By: #### L 100.0100, L500.2500 ####[facility] [address] [place], [address] Chloride [Moles/Vol] 100 mmol/L Normal 98-108 [facility] Comment on above: Performed By: #### L 100.0100, L500.2500 ####[facility] [address] [place], [address] CO2 [Moles/Vol] 26.0 mmol/L Normal 21.0-32.[address] [facility] Comment on above: Performed By: #### L 100.0100, L500.2500 ####[facility] [address] [place], [address] Creatinine [Mass/Vol] 0.62 mg/dL Low 0.70-1.20 [facility] Comment on above: Performed By: #### L 100.0100, L500.2500 ####[facility] [address] [place], [address] ECRCL 62.70 ml/min Normal 50-[address] [facility] Comment on above: Performed By: #### L 100.0100, L500.2500 ####[facility] [address] [place], [address] GAP 10 Normal 5-[address] [facility] Comment on above: Performed By: #### L 100.0100, L500.2500 ####[facility] [address] [place], [address] GFR/1.73 sq M.predicted among non-blacks MDRD (S/P/Bld) [Vol rate/Area] 100 mL/min/{1.73_m2} Normal >[address] [facility] Comment on above: Result Comment: mL/m in/1.73m2 CKD-EPI Creatinine Equation (2020) Performed By: #### L 100.0100, L500.2500 ####[facility] [address] [place], [address] Glucose [Mass/Vol] 96 mg/dL Normal 70-99 [facility] Comment on above: Performed By: #### L 100.0100, L500.2500 ####[facility] [address] [place], [address] Potassium [Moles/Vol] 4.2 mmol/L Normal 3.3-5.1 [facility] Comment on above: Performed By: #### L 100.0100, L500.2500 ####[facility] [address] [place], [address] Sodium [Moles/Vol] 136 mmol/L Normal 133-145 [facility] Comment on above: Performed By: #### L 100.0100, L500.2500 ####[facility] [address] [place], [address] Urea nitrogen [Mass/Vol] 13 mg/dL Normal 4-[address] [facility] Comment on above: Performed By: #### L 100.0100, L500.2500 ####[facility] [address] [place], [address] Basophil percentageOrdered B y: Laurie Vail on 02-10-2025 Basophils/100 WBC (Bld) 1.3 % High 0-1 [facility] CBC W/Diff, Automatedon 01-25 Anisocytosis Ql (Bld) 2+ Normal [facility] Comment on above: Performed By: #### L 100.0100, L500.2500 ####[facility] [address] [place], [address] ATYPICAL LYMPH 1+ Normal [facility] Comment on above: Performed By: #### L 100.0100, L500.2500 ####[facility] [address] [place], [address] Carbon dioxide, total [Moles /volume] in Central venous bloodOrdered By: Laurie Vail on 02-10-2025 CO2 [Moles/Vol] 26.0 mmol/L 21.0-32.[address] [facility] Chloride assayOrdered By: Stef Vail on 02-10-2025 Chloride [Moles/Vol] 100 mmol/L 98-108 [facility] Eosinophil percentageOrdered By: Laurie Vail on 02-10-2025 Eosinophils/100 WBC (Bld) 3.6 % 0-[address] [facility] Erythrocyte distribution wid th ratioOrdered By: Laurie Vail on 02-10-2025 Erythrocyte distribution width (RBC) [Ratio] 17.0 % High 11.6-14.[address] [facility] Erythrocyte distribution wid th standard deviationOrdered By: Laurie Vail on 02-10-2025 Erythrocyte distribution width (RBC) [Ratio] 65.4 fl High 35.1-43.[address] [facility] Glomerular filtration rate ( GFR) estimation/1.73 sq m using serum, plasma, or whole bOrdered By: Laurie Vail on 02-10-2025 GFR/1.73 sq M.predicted among non-blacks MDRD (S/P/Bld) [Vol rate/Area] 100 mL/min/{1.73_m2} >[address] [facility] Comment on above: mL/min/1.73m2 CKD-EP I Creatinine Equation (2020) Hematocrit Auto (Bld) [Volum e fraction]Ordered By: Laurie Vail on 02-10-2025 Hematocrit (Bld) [Volume fraction] 26.1 % Low 40-[address] [facility] Hemoglobin measurementOrdere d By: Laurie Vail on 02-10-2025 Hemoglobin (Bld) [Mass/Vol] 8.8 g/dL Low 13.0-16.[address] [facility] Immature granulocytes/100 WB C Auto (Bld)Ordered By: Laurie Vail on 02-10-2025 Immature granulocytes/100 WBC (Bld) 0.600 % 0.0-0.[address] [facility] Comment on above: IG% - Immature Granu locytes (promyelocytes, myelocytes and metamyelocytes) > 1% indicates that a LEFT SHIFT is Present. Laboratory - Hematology and Cell countsOrdered By: Laurie Vail on 02-10-2025 Anisocytosis Ql (Bld) 2+ [facility] MCV (mean corpuscular volume ) determinationOrdered By: Laurie Vail on 02-10-2025 MCV (RBC) [Entitic vol] 104.8 fL High 80-94 [facility] Mean corpuscular hemoglobin (MCH) determinationOrdered By: Laurie Vail on 02-10-2025 MCH (RBC) [Entitic mass] 35.3 pg High 27.0-32.[address] [facility] Mean corpuscular hemoglobin concentration (MCHC) determinationOrdered By: Laurie Vail on 02-10-2025 MCHC (RBC) [Mass/Vol] 33.7 g/dL 32-36 [facility] Mean platelet volume determi nationOrdered By: Laurie Vail on 02-10-2025 Platelet mean volume (Bld) [Entitic vol] 9.7 fL 6.2-12.[address] [facility] Monocyte percentageOrdered B y: Laurie Vail on 02-10-2025 Monocytes/100 WBC (Bld) 21.4 % High 0-10 [facility] Neutrophil percentageOrdered By: Laurie Vail on 02-10-2025 Neutrophils/100 WBC (Bld) 43.6 % Low 47-[address] [facility] Nucleated red blood cell per centageOrdered By: Laurie Vail on 02-10-2025 Nucleated RBC/100 WBC (Bld) [Ratio] 1.6 % 0-[address] [facility] Oncology Visit Reporton 01-25 Oncology Visit Report Normal [facility] Platelet countOrdered By: Stef Vail on 02-10-2025 Platelets (Bld) [#/Vol] 198 10*3/uL 150-[address] [facility] Potassium measurement (mass/ volume)Ordered By: Laurie Vail on 02-10-2025 Potassium (Unsp spec) [Mass/Vol] 4.2 mmol/L 3.3-5.[address] [facility] RBC Auto (Bld) [#/Vol]Ordere d By: Laurie Vail on 02-10-2025 RBC (Bld) [#/Vol] 2.49 10*6/uL Low 4.6-6.2 [facility] Serum creatinine measurement (mass/volume)Ordered By: Laurie Vail on 02-10-2025 Creatinine [Mass/Vol] 0.62 mg/dL Low 0.70-1.20 [facility] Serum glucose measurement (m ass/volume)Ordered By: Laurie Vail on 02-10-2025 Glucose [Mass/Vol] 96 mg/dL 70-99 [facility] Serum or plasma calcium darian urement (mass/volume)Ordered By: Laurie Vail on 02-10-2025 Calcium [Mass/Vol] 9.1 mg/dL 7.6-11.0 [facility] Serum or plasma urea nitroge n measurement (mass/volume)Ordered By: Laurie Vail on 02-10-2025 Urea nitrogen [Mass/Vol] 13 mg/dL 4-[address] [facility] Sodium levelOrdered By: Laurie Vail on 02-10-2025 Sodium [Moles/Vol] 136 mmol/L 133-145 [facility] White blood cell (WBC) count Ordered By: Laurie Vail on 02-10-2025 WBC (Bld) [#/Vol] 3.1 10*3/uL Low 4.4-11.0 [facility] Absolute lymphocyte countOrd ered By: Zulay Celis on 02-02-2025 Lymphocytes Auto (Unsp spec) [#/Vol] 0.81 10*3/uL Low 0.83-4.[address] [facility] Absolute neutrophil countOrd ered By: Zulay Celis on 02-02-2025 Neutrophils (Bld) [#/Vol] 2.5 10*3/uL 2.0-7.[address] [facility] Anion gap in Serum or Plasma Ordered By: Inesmat Celis on 02-02-2025 Anion gap [Moles/Vol] 11 mmol/L 5-15 [facility] Automated lymphocyte count a s percentage of total leukocytesOrdered By: Inesmat Celis on 02-02-2025 Lymphocytes/100 WBC Auto (Unsp spec) 18.5 % Low 19-[address] [facility] BUN/creatinine ratioOrdered By: [facility] Troymat Celis on 02-02-2025 Urea nitrogen/Creatinine [Mass ratio] 30.5 mg/mg High 10-[address] [facility] Basophil percentageOrdered B y: Zulay Celis on 02-02-2025 Basophils/100 WBC (Bld) 0.7 % 0-1 [facility] Bilirubin, totalOrdered By: Zulay Celis on 02-02-2025 Bilirubin [Mass/Vol] 0.66 mg/dL 0.00-1.30 [facility] Blood polychromasia detectio n by light microscopyOrdered By: Zulay Celis on 02-02-2025 Polychromasia LM Ql (Bld) 1+ [facility] CBC W/Diff, Automatedon HYPOCHROMASIA 1+ Normal [facility] Comment on above: Performed By: #### L 501.5200, L500.4050, L100.0100 ####[facility] [address] [place], [address] PLT EST ADEQUATE Normal ADEQ [facility] Comment on above: Performed By: #### L 501.5200, L500.4050, L100.0100 ####[facility] [address] [place], [address] POLYCHROMASIA 1+ Normal [facility] Comment on above: Performed By: #### L 501.5200, L500.4050, L100.0100 ####[facility] [address] [place], [address] Carbon dioxide, total [Moles /volume] in Central venous bloodOrdered By: Zulay Celis on 02-02-2025 CO2 [Moles/Vol] 25.4 mmol/L 21.0-32.[address] [facility] Chloride assayOrdered By: Nasima arbenmat Celis on 02-02-2025 Chloride [Moles/Vol] 102 mmol/L 98-108 [facility] Comprehensive Metabolic Prof ilon 02-02-2025 Albumin [Mass/Vol] 4.0 g/dL Normal 3.4-4.8 [facility] Comment on above: Performed By: #### L 501.5200, L500.4050, L100.0100 ####[facility] [address] [place], [address] Albumin/Globulin [Mass ratio] 1.4 {ratio} Normal 0.9-2.[address] [facility] Comment on above: Performed By: #### L 501.5200, L500.4050, L100.0100 ####[facility] [address] [place], [address] ALK PHOS 131 U/L High 40-[address] [facility] Comment on above: Performed By: #### L 501.5200, L500.4050, L100.0100 ####[facility] [address] [place], [address] ALT [Catalytic activity/Vol] 33 U/L Normal <=[address] [facility] Comment on above: Performed By: #### L 501.5200, L500.4050, L100.0100 ####[facility] [address] [place], [address] AST [Catalytic activity/Vol] 38 U/L Normal <=[address] [facility] Comment on above: Performed By: #### L 501.5200, L500.4050, L100.0100 ####[facility] [address] [place], [address] Bilirubin [Mass/Vol] 0.66 mg/dL Normal 0.00-1.30 [facility] Comment on above: Performed By: #### L 501.5200, L500.4050, L100.0100 ####[facility] [address] [place], [address] BUN/CRE 30.5 RATIO High 10-[address] [facility] Comment on above: Performed By: #### L 501.5200, L500.4050, L100.0100 ####[facility] [address] [place], [address] Calcium [Mass/Vol] 9.2 mg/dL Normal 7.6-11.0 [facility] Comment on above: Performed By: #### L 501.5200, L500.4050, L100.0100 ####[facility] [address] [place], [address] Chloride [Moles/Vol] 102 mmol/L Normal 98-108 [facility] Comment on above: Performed By: #### L 501.5200, L500.4050, L100.0100 ####[facility] [address] [place], [address] CO2 [Moles/Vol] 25.4 mmol/L Normal 21.0-32.[address] [facility] Comment on above: Performed By: #### L 501.5200, L500.4050, L100.0100 ####[facility] [address] [place], [address] Creatinine [Mass/Vol] 0.62 mg/dL Low 0.70-1.20 [facility] Comment on above: Performed By: #### L 501.5200, L500.4050, L100.0100 ####[facility] [address] [place], [address] ECRCL 64.27 ml/min Normal 50-[address] [facility] Comment on above: Performed By: #### L 501.5200, L500.4050, L100.0100 ####[facility] [address] [place], [address] GAP 11 Normal 5-[address] [facility] Comment on above: Performed By: #### L 501.5200, L500.4050, L100.0100 ####[facility] [address] [place], [address] GFR/1.73 sq M.predicted among non-blacks MDRD (S/P/Bld) [Vol rate/Area] 100 mL/min/{1.73_m2} Normal >[address] [facility] Comment on above: Result Comment: mL/m in/1.73m2 CKD-EPI Creatinine Equation (2020) Performed By: #### L 501.5200, L500.4050, L100.0100 ####[facility] [address] [place], [address] Globulin (S) [Mass/Vol] 2.8 g/dL Normal 2.2-4.2 [facility] Comment on above: Performed By: #### L 501.5200, L500.4050, L100.0100 ####[facility] [address] [place], [address] Glucose [Mass/Vol] 127 mg/dL High 70-99 [facility] Comment on above: Performed By: #### L 501.5200, L500.4050, L100.0100 ####[facility] [address] [place], [address] Potassium [Moles/Vol] 4.2 mmol/L Normal 3.3-5.1 [facility] Comment on above: Performed By: #### L 501.5200, L500.4050, L100.0100 ####[facility] [address] [place], [address] Sodium [Moles/Vol] 138 mmol/L Normal 133-145 [facility] Comment on above: Performed By: #### L 501.5200, L500.4050, L100.0100 ####[facility] [address] [place], [address] T PROT 6.8 g/dL Normal 5.9-8.[address] [facility] Comment on above: Performed By: #### L 501.5200, L500.4050, L100.0100 ####[facility] [address] [place], [address] Urea nitrogen [Mass/Vol] 19 mg/dL Normal 4-[address] [facility] Comment on above: Performed By: #### L 501.5200, L500.4050, L100.0100 ####[facility] [address] [place], [address] Eosinophil percentageOrdered By: Zulay Celis on 02-02-2025 Eosinophils/100 WBC (Bld) 2.1 % 0-[address] [facility] Erythrocyte distribution wid th ratioOrdered By: Zulay Celis on 02-02-2025 Erythrocyte distribution width (RBC) [Ratio] 19.0 % High 11.6-14.[address] [facility] Erythrocyte distribution wid th standard deviationOrdered By: Zulay Celis on 02-02-2025 Erythrocyte distribution width (RBC) [Ratio] 75.7 fl High 35.1-43.[address] [facility] Ferritinon 02-02-2025 Ferritin [Mass/Vol] 744 ng/mL High 37-417 [facility] Comment on above: Performed By: #### L 503.0106, L503.6030, L503.6550, L501.2300 ####[facility] [address] [place], [address] Glomerular filtration rate ( GFR) estimation/1.73 sq m using serum, plasma, or whole bOrdered By: Zulay Celis on 02-02-2025 GFR/1.73 sq M.predicted among non-blacks MDRD (S/P/Bld) [Vol rate/Area] 100 mL/min/{1.73_m2} >[address] [facility] Comment on above: mL/min/1.73m2 CKD-EP I Creatinine Equation (2020) Hematocrit Auto (Bld) [Volum e fraction]Ordered By: Zulay Celis on 02-02-2025 Hematocrit (Bld) [Volume fraction] 27.6 % Low 40-[address] [facility] Hemoglobin measurementOrdere d By: Zulay Celis on 02-02-2025 Hemoglobin (Bld) [Mass/Vol] 9.2 g/dL Low 13.0-16.[address] [facility] Hypochromatic red blood cell detectionOrdered By: Zulay Celis on 02-02-2025 Hypochromia Ql (Bld) 1+ [facility] Immature granulocytes/100 WB C Auto (Bld)Ordered By: Zulay Celis on 02-02-2025 Immature granulocytes/100 WBC (Bld) 0.700 % 0.0-0.[address] [facility] Comment on above: IG% - Immature Granu locytes (promyelocytes, myelocytes and metamyelocytes) > 1% indicates that a LEFT SHIFT is Present. Iron measurement (mass/mass) Ordered By: Zulay Celis on 02-02-2025 Iron (Unsp spec) [Mass/Mass] 103 ug/dL 65-[address] [facility] Iron+Iron Binding Capacityon 02-02-2025 Iron [Mass/Vol] 103 ug/dL Normal 65-[address] [facility] Comment on above: Performed By: #### L 503.0106, L503.6030, L503.6550, L501.2300 ####[facility] [address] [place], [address] IRON SATURATION 33.0 Normal 9-[address] [facility] Comment on above: Performed By: #### L 503.0106, L503.6030, L503.6550, L501.2300 ####[facility] [address] [place], [address] TIBC 315 ug/dL Normal 250-[address] [facility] Comment on above: Performed By: #### L 503.0106, L503.6030, L503.6550, L501.2300 ####[facility] [address] [place], [address] UIBC 212 ug/dL Low 228-[address] [facility] Comment on above: Performed By: #### L 503.0106, L503.6030, L503.6550, L501.2300 ####[facility] [address] [place], [address] Laboratory - Chemistry and C hemistry - challengeOrdered By: Zulay Celis on 02-02-2025 AST [Catalytic activity/Vol] 38 U/L <[address] [facility] MCV (mean corpuscular volume ) determinationOrdered By: Zulay Celis on 02-02-2025 MCV (RBC) [Entitic vol] 108.7 fL High 80-94 [facility] Magnesiumon 02-02-2025 Magnesium [Mass/Vol] 2.5 mg/dL High 1.5-2.2 [facility] Comment on above: Performed By: #### L 501.5200, L500.4050, L100.0100 ####[facility] [address] [place], [address] Magnesium measurement (mass/ volume)Ordered By: Zulay Celis on 02-02-2025 Magnesium (Unsp spec) [Mass/Vol] 2.5 mg/dL High 1.5-2.[address] [facility] Mean corpuscular hemoglobin (MCH) determinationOrdered By: Zulay Celis on 02-02-2025 MCH (RBC) [Entitic mass] 36.2 pg High 27.0-32.[address] [facility] Mean corpuscular hemoglobin concentration (MCHC) determinationOrdered By: Zulay Celis on 02-02-2025 MCHC (RBC) [Mass/Vol] 33.3 g/dL 32-36 [facility] Mean platelet volume determi nationOrdered By: Inesmat Celis on 02-02-2025 Platelet mean volume (Bld) [Entitic vol] 9.0 fL 6.2-12.[address] [facility] Monocyte percentageOrdered B y: Zulay Celis on 02-02-2025 Monocytes/100 WBC (Bld) 21.1 % High 0-10 [facility] Neutrophil percentageOrdered By: Zulay Celis on 02-02-2025 Neutrophils/100 WBC (Bld) 56.9 % 47-[address] [facility] No Panel InformationOrdered By: Zulay Celis on 02-02-2025 Unsaturated Iron Binding Capacity 212 ug/dL Low 228-[address] [facility] Nucleated red blood cell per centageOrdered By: Zulay Celis on 02-02-2025 Nucleated RBC/100 WBC (Bld) [Ratio] 0 % 0-[address] [facility] Oncology Visit Reporton Oncology Visit Report Normal [facility] Phosphoruson 02-02-2025 Phosphate [Mass/Vol] 4.0 mg/dL Normal 2.7-4.5 [facility] Comment on above: Performed By: #### L 503.0106, L503.6030, L503.6550, L501.2300 ####[facility] [address] [place], [address] Platelet countOrdered By: Nasima Celis on 02-02-2025 Platelets (Bld) [#/Vol] 255 10*3/uL 150-[address] [facility] Platelet estimateOrdered By: Zulay Celis on 02-02-2025 Platelets LM Ql (Bld) ADEQUATE ADEQ [facility] Potassium measurement (mass/ volume)Ordered By: Zulay Celis on 02-02-2025 Potassium (Unsp spec) [Mass/Vol] 4.2 mmol/L 3.3-5.[address] [facility] RBC Auto (Bld) [#/Vol]Ordere d By: Zulay Celis on 02-02-2025 RBC (Bld) [#/Vol] 2.54 10*6/uL Low 4.6-6.2 [facility] Serum creatinine measurement (mass/volume)Ordered By: Zulay Celis on 02-02-2025 Creatinine [Mass/Vol] 0.62 mg/dL Low 0.70-1.20 [facility] Serum globulin measurementOr dered By: Zulay Celis on 02-02-2025 Globulin (S) [Mass/Vol] 2.8 g/dL 2.2-4.2 [facility] Serum glucose measurement (m ass/volume)Ordered By: Zulay Celis on 02-02-2025 Glucose [Mass/Vol] 127 mg/dL High 70-99 [facility] Serum or plasma alanine lucia otransferase (ALT) measurementOrdered By: Zulay Celis on 02-02-2025 ALT [Catalytic activity/Vol] 33 U/L <[address] [facility] Serum or plasma albumin darian urement (mass/volume)Ordered By: Zulay Celis on 02-02-2025 Albumin [Mass/Vol] 4.0 g/dL 3.4-4.8 [facility] Serum or plasma albumin/glob ulin mass ratioOrdered By: Zulay Celis on 02-02-2025 Albumin/Globulin [Mass ratio] 1.4 {ratio} 0.9-2.[address] [facility] Serum or plasma alkaline trudi sphatase measurementOrdered By: Zulay Celis on 02-02-2025 ALP [Catalytic activity/Vol] 131 U/L High 40-[address] [facility] Serum or plasma calcium darian urement (mass/volume)Ordered By: Zulay Celis on 02-02-2025 Calcium [Mass/Vol] 9.2 mg/dL 7.6-11.0 [facility] Serum or plasma ferritin sandra surement (mass/volume)Ordered By: Zulay Celis on 02-02-2025 Ferritin [Mass/Vol] 744 ng/mL High 37-417 [facility] Serum or plasma iron saturat ion measurement (mass fraction)Ordered By: Zulay Celis on 02-02-2025 Iron saturation [Mass fraction] 33.0 % 9-[address] [facility] Serum or plasma urea nitroge n measurement (mass/volume)Ordered By: Zulay Celis on 02-02-2025 Urea nitrogen [Mass/Vol] 19 mg/dL 4-[address] [facility] Sodium levelOrdered By: Ines rivero Vimal on 02-02-2025 Sodium [Moles/Vol] 138 mmol/L 133-145 [facility] Total proteinOrdered By: Kostas ahn Vimal on 02-02-2025 Protein [Mass/Vol] 6.8 g/dL 5.9-8.4 [facility] Vitamin B12on 02-02-2025 Cobalamin (Vitamin B12) [Mass/Vol] 555 pg/mL Normal 180-[address] [facility] Comment on above: Performed By: #### L 503.0106, L503.6030, L503.6550, L501.2300 ####[facility] [address] [place], [address] Vitamin B12 ser/plasOrdered By: Zulay Vimal on 02-02-2025 Cobalamin (Vitamin B12) [Mass/Vol] 555 pg/mL 180-[address] [facility] White blood cell (WBC) count Ordered By: Zulay Vimal on 02-02-2025 WBC (Bld) [#/Vol] 4.4 10*3/uL 4.4-11.0 [facility] Absolute lymphocyte countOrd ered By: Inesmat Vimal on 01-19-2025 Lymphocytes Auto (Unsp spec) [#/Vol] 0.76 10*3/uL Low 0.83-4.[address] [facility] Absolute neutrophil countOrd ered By: Zulay Celis on 01-19-2025 Neutrophils (Bld) [#/Vol] 2.8 10*3/uL 2.0-7.[address] [facility] Anion gap in Serum or Plasma Ordered By: Inesmat Celis on 01-19-2025 Anion gap [Moles/Vol] 11 mmol/L 5-15 [facility] Automated lymphocyte count a s percentage of total leukocytesOrdered By: Zulay Celis on 01-19-2025 Lymphocytes/100 WBC Auto (Unsp spec) 16.7 % Low 19-[address] [facility] BUN/creatinine ratioOrdered By: Zulay Celis on 01-19-2025 Urea nitrogen/Creatinine [Mass ratio] 26.3 mg/mg High 10-[address] [facility] Basophil percentageOrdered B y: Zulay Mohrconchis on 01-19-2025 Basophils/100 WBC (Bld) 1.1 % High 0-1 [facility] Bilirubin, totalOrdered By: Zulay Vimal on 01-19-2025 Bilirubin [Mass/Vol] 0.72 mg/dL 0.00-1.30 [facility] Blood manual differential co mment interpretation (narrative result)Ordered By: Zulay Vimal on 01-19-2025 Manual differential comment Jaun (Bld) [Interp] SCANNED [facility] CBC W/Diff, Automatedon 12-26 Anisocytosis Ql (Bld) 1+ Normal [facility] Comment on above: Performed By: #### L 500.4050, L501.5200, L100.0100 ####[facility] [address] [place], [address] SMEAR COMMENT SCANNED Normal [facility] Comment on above: Performed By: #### L 500.4050, L501.5200, L100.0100 ####[facility] [address] [place], [address] Carbon dioxide, total [Moles /volume] in Central venous bloodOrdered By: Zulay Vimal on 01-19-2025 CO2 [Moles/Vol] 24.5 mmol/L 21.0-32.[address] [facility] Chloride assayOrdered By: Nasima rehana Vimal on 01-19-2025 Chloride [Moles/Vol] 103 mmol/L 98-108 [facility] Comprehensive Metabolic Prof ilon 01-19-2025 Albumin [Mass/Vol] 4.1 g/dL Normal 3.4-4.8 [facility] Comment on above: Performed By: #### L 500.4050, L501.5200, L100.0100 ####[facility] [address] [place], [place], [phone] Albumin/Globulin [Mass ratio] 1.5 {ratio} Normal 0.9-2.[address] [facility] Comment on above: Performed By: #### L 500.4050, L501.5200, L100.0100 ####[facility] [address] [place], [address] ALK PHOS 117 U/L Normal 40-[address] [facility] Comment on above: Performed By: #### L 500.4050, L501.5200, L100.0100 ####[facility] [address] [place], [address] ALT [Catalytic activity/Vol] 30 U/L Normal <=[address] [facility] Comment on above: Performed By: #### L 500.4050, L501.5200, L100.0100 ####[facility] [address] [place], [address] AST [Catalytic activity/Vol] 39 U/L High <=[address] [facility] Comment on above: Performed By: #### L 500.4050, L501.5200, L100.0100 ####[facility] [address] [place], [address] Bilirubin [Mass/Vol] 0.72 mg/dL Normal 0.00-1.30 [facility] Comment on above: Performed By: #### L 500.4050, L501.5200, L100.0100 ####[facility] [address] [place], [address] BUN/CRE 26.3 RATIO High 10-[address] [facility] Comment on above: Performed By: #### L 500.4050, L501.5200, L100.0100 ####[facility] [address] [place], [address] Calcium [Mass/Vol] 9.2 mg/dL Normal 7.6-11.0 [facility] Comment on above: Performed By: #### L 500.4050, L501.5200, L100.0100 ####[facility] [address] [place], [address] Chloride [Moles/Vol] 103 mmol/L Normal 98-108 [facility] Comment on above: Performed By: #### L 500.4050, L501.5200, L100.0100 ####[facility] [address] [place], [address] CO2 [Moles/Vol] 24.5 mmol/L Normal 21.0-32.[address] [facility] Comment on above: Performed By: #### L 500.4050, L501.5200, L100.0100 ####[facility] [address] [place], [address] Creatinine [Mass/Vol] 0.60 mg/dL Low 0.70-1.20 [facility] Comment on above: Performed By: #### L 500.4050, L501.5200, L100.0100 ####[facility] [address] [place], [address] ECRCL 65.01 ml/min Normal 50-[address] [facility] Comment on above: Performed By: #### L 500.4050, L501.5200, L100.0100 ####[facility] [address] [place], [address] GAP 11 Normal 5-[address] [facility] Comment on above: Performed By: #### L 500.4050, L501.5200, L100.0100 ####[facility] [address] [place], [address] GFR/1.73 sq M.predicted among non-blacks MDRD (S/P/Bld) [Vol rate/Area] 101 mL/min/{1.73_m2} Normal >[address] [facility] Comment on above: Result Comment: mL/m in/1.73m2 CKD-EPI Creatinine Equation (2020) Performed By: #### L 500.4050, L501.5200, L100.0100 ####[facility] [address] [place], [address] Globulin (S) [Mass/Vol] 2.7 g/dL Normal 2.2-4.2 [facility] Comment on above: Performed By: #### L 500.4050, L501.5200, L100.0100 ####[facility] [address] [place], [address] Glucose [Mass/Vol] 122 mg/dL High 70-99 [facility] Comment on above: Performed By: #### L 500.4050, L501.5200, L100.0100 ####[facility] [address] [place], [address] Potassium [Moles/Vol] 4.2 mmol/L Normal 3.3-5.1 [facility] Comment on above: Performed By: #### L 500.4050, L501.5200, L100.0100 ####[facility] [address] [place], [address] Sodium [Moles/Vol] 139 mmol/L Normal 133-145 [facility] Comment on above: Performed By: #### L 500.4050, L501.5200, L100.0100 ####[facility] [address] [place], [address] T PROT 6.8 g/dL Normal 5.9-8.[address] [facility] Comment on above: Performed By: #### L 500.4050, L501.5200, L100.0100 ####[facility] [address] [place], [address] Urea nitrogen [Mass/Vol] 16 mg/dL Normal 4-19 [place] [facility] Comment on above: Performed By: #### L 500.4050, L501.5200, L100.0100 ####[facility] [address] [place], [address] Eosinophil percentageOrdered By: Zulay Celis on 01-19-2025 Eosinophils/100 WBC (Bld) 2.2 % 0-[address] [facility] Erythrocyte distribution wid th ratioOrdered By: [facility] Troymat Celis on 01-19-2025 Erythrocyte distribution width (RBC) [Ratio] 19.1 % High 11.6-14.[address] [facility] Erythrocyte distribution wid th standard deviationOrdered By: [facility] Troymat Celis on 01-19-2025 Erythrocyte distribution width (RBC) [Ratio] 75.4 fl High 35.1-43.[address] [facility] Glomerular filtration rate ( GFR) estimation/1.73 sq m using serum, plasma, or whole bOrdered By: [facility] Troymat Celis on 01-19-2025 GFR/1.73 sq M.predicted among non-blacks MDRD (S/P/Bld) [Vol rate/Area] 101 mL/min/{1.73_m2} >[address] [facility] Comment on above: mL/min/1.73m2 CKD-EP I Creatinine Equation (2020) Hematocrit Auto (Bld) [Volum e fraction]Ordered By: [facility] Troymat Celis on 01-19-2025 Hematocrit (Bld) [Volume fraction] 27.7 % Low 40-[address] [facility] Hemoglobin measurementOrdere d By: Zulay Celis on 01-19-2025 Hemoglobin (Bld) [Mass/Vol] 9.2 g/dL Low 13.0-16.[address] [facility] Immature granulocytes/100 WB C Auto (Bld)Ordered By: [facility] Troymat Celis on 01-19-2025 Immature granulocytes/100 WBC (Bld) 0.400 % 0.0-0.[address] [facility] Comment on above: IG% - Immature Granu locytes (promyelocytes, myelocytes and metamyelocytes) > 1% indicates that a LEFT SHIFT is Present. Laboratory - Chemistry and C hemistry - challengeOrdered By: Zulay Celis on 01-19-2025 AST [Catalytic activity/Vol] 39 U/L High <[address] [facility] Laboratory - Hematology and Cell countsOrdered By: Zulay Celis on 01-19-2025 Anisocytosis Ql (Bld) 1+ [facility] MCV (mean corpuscular volume ) determinationOrdered By: Zulay Celis on 01-19-2025 MCV (RBC) [Entitic vol] 107.4 fL High 80-94 [facility] Magnesiumon 01-19-2025 Magnesium [Mass/Vol] 2.4 mg/dL High 1.5-2.2 [facility] Comment on above: Performed By: #### L 500.4050, L501.5200, L100.0100 ####[facility] [address] [place], [address] Magnesium measurement (mass/ volume)Ordered By: Zulay Celis on 01-19-2025 Magnesium (Unsp spec) [Mass/Vol] 2.4 mg/dL High 1.5-2.[address] [facility] Mean corpuscular hemoglobin (MCH) determinationOrdered By: Zulay Celis on 01-19-2025 MCH (RBC) [Entitic mass] 35.7 pg High 27.0-32.[address] [facility] Mean corpuscular hemoglobin concentration (MCHC) determinationOrdered By: Zulay Celis on 01-19-2025 MCHC (RBC) [Mass/Vol] 33.2 g/dL 32-36 [facility] Mean platelet volume determi nationOrdered By: Zulay Celis on 01-19-2025 Platelet mean volume (Bld) [Entitic vol] 9.7 fL 6.2-12.[address] [facility] Monocyte percentageOrdered B y: Zulay Celis on 01-19-2025 Monocytes/100 WBC (Bld) 19.1 % High 0-10 [facility] Neutrophil percentageOrdered By: Zulay Celis on 01-19-2025 Neutrophils/100 WBC (Bld) 60.5 % 47-[address] [facility] Nucleated red blood cell per centageOrdered By: Zulay Celis on 01-19-2025 Nucleated RBC/100 WBC (Bld) [Ratio] 0.4 % 0-[address] [facility] Oncology Visit Reporton 08 Oncology Visit Report Normal [facility] Platelet countOrdered By: Nasima Celis on 01-19-2025 Platelets (Bld) [#/Vol] 208 10*3/uL 150-[address] [facility] Potassium measurement (mass/ volume)Ordered By: Zulay Celis on 01-19-2025 Potassium (Unsp spec) [Mass/Vol] 4.2 mmol/L 3.3-5.[address] [facility] RBC Auto (Bld) [#/Vol]Ordere d By: Zulay Celis on 01-19-2025 RBC (Bld) [#/Vol] 2.58 10*6/uL Low 4.6-6.2 [facility] Serum creatinine measurement (mass/volume)Ordered By: Zulay Celis on 01-19-2025 Creatinine [Mass/Vol] 0.60 mg/dL Low 0.70-1.20 [facility] Serum globulin measurementOr dered By: Zulay Celis on 01-19-2025 Globulin (S) [Mass/Vol] 2.7 g/dL 2.2-4.2 [facility] Serum glucose measurement (m ass/volume)Ordered By: Zulay Celis on 01-19-2025 Glucose [Mass/Vol] 122 mg/dL High 70-99 [facility] Serum or plasma alanine lucia otransferase (ALT) measurementOrdered By: Zulay Celis on 01-19-2025 ALT [Catalytic activity/Vol] 30 U/L <[address] [facility] Serum or plasma albumin darian urement (mass/volume)Ordered By: Zulay Celis on 01-19-2025 Albumin [Mass/Vol] 4.1 g/dL 3.4-4.8 [facility] Serum or plasma albumin/glob ulin mass ratioOrdered By: Zulay Celis on 01-19-2025 Albumin/Globulin [Mass ratio] 1.5 {ratio} 0.9-2.[address] [facility] Serum or plasma alkaline trudi sphatase measurementOrdered By: Zulay Celis on 01-19-2025 ALP [Catalytic activity/Vol] 117 U/L 40-[address] [facility] Serum or plasma calcium darian urement (mass/volume)Ordered By: Zulay Celis on 01-19-2025 Calcium [Mass/Vol] 9.2 mg/dL 7.6-11.0 [facility] Serum or plasma urea nitroge n measurement (mass/volume)Ordered By: Zulay Celis on 01-19-2025 Urea nitrogen [Mass/Vol] 16 mg/dL 4-[address] [facility] Sodium levelOrdered By: Ines Celis on 01-19-2025 Sodium [Moles/Vol] 139 mmol/L 133-145 [facility] Total proteinOrdered By: Kostas Celis on 01-19-2025 Protein [Mass/Vol] 6.8 g/dL 5.9-8.4 [facility] White blood cell (WBC) count Ordered By: Zulay Celis on 01-19-2025 WBC (Bld) [#/Vol] 4.6 10*3/uL 4.4-11.[address] [facility] [address] Chest, Abd, Pel w/Contras ton 01-15-2025 CT Chest, Abd, Pel w/Contrast Normal [facility] Absolute lymphocyte countOrd ered By: Zulay Celis on 01-05-2025 Lymphocytes Auto (Unsp spec) [#/Vol] 0.84 10*3/uL 0.83-4.[address] [facility] Absolute neutrophil countOrd ered By: Zulay Celis on 01-05-2025 Neutrophils (Bld) [#/Vol] 3.1 10*3/uL 2.0-7.[address] [facility] Anion gap in Serum or Plasma Ordered By: Zulay Celis on 01-05-2025 Anion gap [Moles/Vol] 10 mmol/L 5-15 [facility] Automated lymphocyte count a s percentage of total leukocytesOrdered By: Zulay Celis on 01-05-2025 Lymphocytes/100 WBC Auto (Unsp spec) 17.2 % Low 19-[address] [facility] BUN/creatinine ratioOrdered By: Zulay Celis on 01-05-2025 Urea nitrogen/Creatinine [Mass ratio] 23.0 mg/mg High 10-[address] [facility] Basophil percentageOrdered B y: Zulay Celis on 01-05-2025 Basophils/100 WBC (Bld) 0.8 % 0-1 [facility] Bilirubin, totalOrdered By: Zulay Celis on 01-05-2025 Bilirubin [Mass/Vol] 0.84 mg/dL 0.00-1.30 [facility] Blood polychromasia detectio n by light microscopyOrdered By: Zulay Celis on 01-05-2025 Polychromasia LM Ql (Bld) 1+ [facility] CBC W/Diff, Automatedon 12-25 ACANTHOCYTE 1+ Normal [facility] Comment on above: Performed By: #### L 500.4050, L501.5200, L100.0100 ####[facility] [address] [place], [address] Anisocytosis Ql (Bld) 1+ Normal [facility] Comment on above: Performed By: #### L 500.4050, L501.5200, L100.0100 ####[facility] [address] [place], [address] OVALOCYTE 1+ Normal [facility] Comment on above: Performed By: #### L 500.4050, L501.5200, L100.0100 ####[facility] [address] [place], [address] POLYCHROMASIA 1+ Normal [facility] Comment on above: Performed By: #### L 500.4050, L501.5200, L100.0100 ####[facility] [address] [place], [address] Carbon dioxide, total [Moles /volume] in Central venous bloodOrdered By: Zulay Celis on 01-05-2025 CO2 [Moles/Vol] 26.3 mmol/L 21.0-32.[address] [facility] Chloride assayOrdered By: Nasima Celis on 01-05-2025 Chloride [Moles/Vol] 105 mmol/L 98-108 [facility] Comprehensive Metabolic Prof ilon 01-05-2025 Albumin [Mass/Vol] 4.2 g/dL Normal 3.4-4.8 [facility] Comment on above: Performed By: #### L 500.4050, L501.5200, L100.0100 ####[facility] [address] [place], [address] Albumin/Globulin [Mass ratio] 1.9 {ratio} Normal 0.9-2.[address] [facility] Comment on above: Performed By: #### L 500.4050, L501.5200, L100.0100 ####[facility] [address] [place], [address] ALK PHOS 80 U/L Normal 40-[address] [facility] Comment on above: Performed By: #### L 500.4050, L501.5200, L100.0100 ####[facility] [address] [place], [address] ALT [Catalytic activity/Vol] 25 U/L Normal <=[address] [facility] Comment on above: Performed By: #### L 500.4050, L501.5200, L100.0100 ####[facility] [address] [place], [address] AST [Catalytic activity/Vol] 36 U/L Normal <=[address] [facility] Comment on above: Performed By: #### L 500.4050, L501.5200, L100.0100 ####[facility] [address] [place], [address] Bilirubin [Mass/Vol] 0.84 mg/dL Normal 0.00-1.30 [facility] Comment on above: Performed By: #### L 500.4050, L501.5200, L100.0100 ####[facility] [address] [place], [address] BUN/CRE 23.0 RATIO High 10-[address] [facility] Comment on above: Performed By: #### L 500.4050, L501.5200, L100.0100 ####[facility] [address] [place], [address] Calcium [Mass/Vol] 9.4 mg/dL Normal 7.6-11.0 [facility] Comment on above: Performed By: #### L 500.4050, L501.5200, L100.0100 ####[facility] [address] [place], [address] Chloride [Moles/Vol] 105 mmol/L Normal 98-108 [facility] Comment on above: Performed By: #### L 500.4050, L501.5200, L100.0100 ####[facility] [address] [place], [address] CO2 [Moles/Vol] 26.3 mmol/L Normal 21.0-32.[address] [facility] Comment on above: Performed By: #### L 500.4050, L501.5200, L100.0100 ####[facility] [address] [place], [address] Creatinine [Mass/Vol] 0.64 mg/dL Low 0.70-1.20 [facility] Comment on above: Performed By: #### L 500.4050, L501.5200, L100.0100 ####[facility] [address] [place], [address] ECRCL 64.08 ml/min Normal 50-[address] [facility] Comment on above: Performed By: #### L 500.4050, L501.5200, L100.0100 ####[facility] [address] [place], [address] GAP 10 Normal 5-[address] [facility] Comment on above: Performed By: #### L 500.4050, L501.5200, L100.0100 ####[facility] [address] [place], [address] GFR/1.73 sq M.predicted among non-blacks MDRD (S/P/Bld) [Vol rate/Area] 99 mL/min/{1.73_m2} Normal >[address] [facility] Comment on above: Result Comment: mL/m in/1.73m2 CKD-EPI Creatinine Equation (2020) Performed By: #### L 500.4050, L501.5200, L100.0100 ####[facility] [address] [place], [address] Globulin (S) [Mass/Vol] 2.2 g/dL Normal 2.2-4.2 [facility] Comment on above: Performed By: #### L 500.4050, L501.5200, L100.0100 ####[facility] [address] [place], [address] Glucose [Mass/Vol] 132 mg/dL High 70-99 [facility] Comment on above: Performed By: #### L 500.4050, L501.5200, L100.0100 ####[facility] [address] [place], [address] Potassium [Moles/Vol] 4.1 mmol/L Normal 3.3-5.1 [facility] Comment on above: Performed By: #### L 500.4050, L501.5200, L100.0100 ####[facility] [address] [place], [address] Sodium [Moles/Vol] 141 mmol/L Normal 133-145 [facility] Comment on above: Performed By: #### L 500.4050, L501.5200, L100.0100 ####[facility] [address] [place], [address] T PROT 6.4 g/dL Normal 5.9-8.[address] [facility] Comment on above: Performed By: #### L 500.4050, L501.5200, L100.0100 ####[facility] [address] [place], [address] Urea nitrogen [Mass/Vol] 15 mg/dL Normal 4-[address] [facility] Comment on above: Performed By: #### L 500.4050, L501.5200, L100.0100 ####[facility] [address] [place], [address] Eosinophil percentageOrdered By: Zulay Celis on 01-05-2025 Eosinophils/100 WBC (Bld) 2.5 % 0-[address] [facility] Erythrocyte distribution wid th ratioOrdered By: Zulay Celis on 01-05-2025 Erythrocyte distribution width (RBC) [Ratio] 19.1 % High 11.6-14.[address] [facility] Erythrocyte distribution wid th standard deviationOrdered By: [facility] Troymat Cel[facility] on 01-05-2025 Erythrocyte distribution width (RBC) [Ratio] 74.2 fl High 35.1-43.[address] [facility] Glomerular filtration rate ( GFR) estimation/1.73 sq m using serum, plasma, or whole bOrdered By: Zulay Celis on 01-05-2025 GFR/1.73 sq M.predicted among non-blacks MDRD (S/P/Bld) [Vol rate/Area] 99 mL/min/{1.73_m2} >[address] [facility] Comment on above: mL/min/1.73m2 CKD-EP I Creatinine Equation (2020) Hematocrit Auto (Bld) [Volum e fraction]Ordered By: Zulay Celis on 01-05-2025 Hematocrit (Bld) [Volume fraction] 27.9 % Low 40-[address] [facility] Hemoglobin measurementOrdere d By: Zulay Celis on 01-05-2025 Hemoglobin (Bld) [Mass/Vol] 9.1 g/dL Low 13.0-16.[address] [facility] Immature granulocytes/100 WB C Auto (Bld)Ordered By: Zulay Celis on 01-05-2025 Immature granulocytes/100 WBC (Bld) 0.400 % 0.0-0.[address] [facility] Comment on above: IG% - Immature Granu locytes (promyelocytes, myelocytes and metamyelocytes) > 1% indicates that a LEFT SHIFT is Present. Laboratory - Chemistry and C hemistry - challengeOrdered By: Zulay Celis on 01-05-2025 AST [Catalytic activity/Vol] 36 U/L <[address] [facility] Laboratory - Hematology and Cell countsOrdered By: Zulay Celis on 01-05-2025 Anisocytosis Ql (Bld) 1+ [facility] MCV (mean corpuscular volume ) determinationOrdered By: Zulay Celis on 01-05-2025 MCV (RBC) [Entitic vol] 105.7 fL High 80-94 [facility] Magnesiumon 01-05-2025 Magnesium [Mass/Vol] 2.4 mg/dL High 1.5-2.2 [facility] Comment on above: Performed By: #### L 500.4050, L501.5200, L100.0100 ####[facility] [address] [place], [place], [id number] Magnesium measurement (mass/ volume)Ordered By: Zulay Celis on 01-05-2025 Magnesium (Unsp spec) [Mass/Vol] 2.4 mg/dL High 1.5-2.[address] [facility] Mean corpuscular hemoglobin (MCH) determinationOrdered By: Zulay Celis on 01-05-2025 MCH (RBC) [Entitic mass] 34.5 pg High 27.0-32.[address] [facility] Mean corpuscular hemoglobin concentration (MCHC) determinationOrdered By: Zulay Celis on 01-05-2025 MCHC (RBC) [Mass/Vol] 32.6 g/dL 32-36 [facility] Mean platelet volume determi nationOrdered By: Zulay Celis on 01-05-2025 Platelet mean volume (Bld) [Entitic vol] 8.9 fL 6.2-12.[address] [facility] Monocyte percentageOrdered B y: Zulay Celis on 01-05-2025 Monocytes/100 WBC (Bld) 15.4 % High 0-10 [facility] Neutrophil percentageOrdered By: Zulay Celis on 01-05-2025 Neutrophils/100 WBC (Bld) 63.7 % 47-[address] [facility] Nucleated red blood cell per centageOrdered By: Zulay Celis on 01-05-2025 Nucleated RBC/100 WBC (Bld) [Ratio] 0 % 0-[address] [facility] Oncology Visit Reporton 12-25 Oncology Visit Report Normal [facility] Ovalocyte detectionOrdered B y: Zulay Celis on 01-05-2025 Ovalocytes LM Ql (Bld) 1+ [facility] Platelet countOrdered By: Nasima Celis on 01-05-2025 Platelets (Bld) [#/Vol] 158 10*3/uL 150-[address] [facility] Potassium measurement (mass/ volume)Ordered By: Zulay Celis on 01-05-2025 Potassium (Unsp spec) [Mass/Vol] 4.1 mmol/L 3.3-5.[address] [facility] RBC Auto (Bld) [#/Vol]Ordere d By: Zulay Celis on 01-05-2025 RBC (Bld) [#/Vol] 2.64 10*6/uL Low 4.6-6.2 [facility] Serum creatinine measurement (mass/volume)Ordered By: Zulay Celis on 01-05-2025 Creatinine [Mass/Vol] 0.64 mg/dL Low 0.70-1.20 [facility] Serum globulin measurementOr dered By: Zulay Celis on 01-05-2025 Globulin (S) [Mass/Vol] 2.2 g/dL 2.2-4.2 [facility] Serum glucose measurement (m ass/volume)Ordered By: Zulay Celis on 01-05-2025 Glucose [Mass/Vol] 132 mg/dL High 70-99 [facility] Serum or plasma alanine lucia otransferase (ALT) measurementOrdered By: Zulay Celis on 08-12-2025 ALT [Catalytic activity/Vol] 25 U/L <[address] [facility] Serum or plasma albumin darian urement (mass/volume)Ordered By: Zulay Celis on 01-05-2025 Albumin [Mass/Vol] 4.2 g/dL 3.4-4.8 [facility] Serum or plasma albumin/glob ulin mass ratioOrdered By: Zulay Celis on 01-05-2025 Albumin/Globulin [Mass ratio] 1.9 {ratio} 0.9-2.[address] [facility] Serum or plasma alkaline trudi sphatase measurementOrdered By: Zulay Celis on 01-05-2025 ALP [Catalytic activity/Vol] 80 U/L 40-[address] [facility] Serum or plasma calcium darian urement (mass/volume)Ordered By: Zulay Celis on 01-05-2025 Calcium [Mass/Vol] 9.4 mg/dL 7.6-11.0 [facility] Serum or plasma urea nitroge n measurement (mass/volume)Ordered By: Zulay Celis on 01-05-2025 Urea nitrogen [Mass/Vol] 15 mg/dL 4-[address] [facility] Sodium levelOrdered By: Ines Celis on 01-05-2025 Sodium [Moles/Vol] 141 mmol/L 133-145 [facility] Total proteinOrdered By: Kostas Celis on 01-05-2025 Protein [Mass/Vol] 6.4 g/dL 5.9-8.4 [facility] White blood cell (WBC) count Ordered By: Zulay Celis on 01-05-2025 WBC (Bld) [#/Vol] 4.9 10*3/uL 4.4-11.0 [facility] Absolute lymphocyte countOrd ered By: Zulay Celis on 12-22-2024 Lymphocytes Auto (Unsp spec) [#/Vol] 0.62 10*3/uL Low 0.83-4.[address] [facility] Absolute neutrophil countOrd ered By: Zulay Celis on 12-22-2024 Neutrophils (Bld) [#/Vol] 2.5 10*3/uL 2.0-7.[address] [facility] Anion gap in Serum or Plasma Ordered By: Zulay Celis on 12-22-2024 Anion gap [Moles/Vol] 11 mmol/L 5-15 [facility] Automated lymphocyte count a s percentage of total leukocytesOrdered By: Zulay Celis on 12-22-2024 Lymphocytes/100 WBC Auto (Unsp spec) 15.5 % Low 19-[address] [facility] BUN/creatinine ratioOrdered By: [facility] Troymat Celis on 12-22-2024 Urea nitrogen/Creatinine [Mass ratio] 20.8 mg/mg High 10-[address] [facility] Basophil percentageOrdered B y: Zulay Celis on 12-22-2024 Basophils/100 WBC (Bld) 1.0 % 0-1 [facility] Bilirubin, totalOrdered By: Zulay Mohrmartínez on 12-22-2024 Bilirubin [Mass/Vol] 0.90 mg/dL 0.00-1.30 [facility] CBC W/Diff, Automatedon 11-25 ACANTHOCYTE 1+ Normal [facility] Comment on above: Performed By: #### L 501.5200, L100.0100, L500.4050 ####[facility] [address] [place], [address] Anisocytosis Ql (Bld) 1+ Normal [facility] Comment on above: Performed By: #### L 501.5200, L100.0100, L500.4050 ####[facility] [address] [place], [address] OVALOCYTE 1+ Normal [facility] Comment on above: Performed By: #### L 501.5200, L100.0100, L500.4050 ####[facility] [address] [place], [address] PLT EST A Normal ADEQ [facility] Comment on above: Performed By: #### L 501.5200, L100.0100, L500.4050 ####[facility] [address] [place], [address] Carbon dioxide, total [Moles /volume] in Central venous bloodOrdered By: Zulay Celis on 12-22-2024 CO2 [Moles/Vol] 24.4 mmol/L 21.0-32.[address] [facility] Chloride assayOrdered By: Nasima arbenmat Celis on 12-22-2024 Chloride [Moles/Vol] 104 mmol/L 98-108 [facility] Comprehensive Metabolic Prof ilon 12-22-2024 Albumin [Mass/Vol] 4.2 g/dL Normal 3.4-4.8 [facility] Comment on above: Performed By: #### L 501.5200, L100.0100, L500.4050 ####[facility] [address] [place], [address] Albumin/Globulin [Mass ratio] 1.9 {ratio} Normal 0.9-2.[address] [facility] Comment on above: Performed By: #### L 501.5200, L100.0100, L500.4050 ####[facility] [address] [place], [address] ALK PHOS 74 U/L Normal 40-[address] [facility] Comment on above: Performed By: #### L 501.5200, L100.0100, L500.4050 ####[facility] [address] [place], [address] ALT [Catalytic activity/Vol] 31 U/L Normal <=[address] [facility] Comment on above: Performed By: #### L 501.5200, L100.0100, L500.4050 ####[facility] [address] [place], [address] AST [Catalytic activity/Vol] 37 U/L Normal <=[address] [facility] Comment on above: Performed By: #### L 501.5200, L100.0100, L500.4050 ####[facility] [address] [place], [address] Bilirubin [Mass/Vol] 0.90 mg/dL Normal 0.00-1.30 [facility] Comment on above: Performed By: #### L 501.5200, L100.0100, L500.4050 ####[facility] [address] [place], [address] BUN/CRE 20.8 RATIO High 10-[address] [facility] Comment on above: Performed By: #### L 501.5200, L100.0100, L500.4050 ####[facility] [address] [place], [address] Calcium [Mass/Vol] 9.4 mg/dL Normal 7.6-11.0 [facility] Comment on above: Performed By: #### L 501.5200, L100.0100, L500.4050 ####[facility] [address] [place], [address] Chloride [Moles/Vol] 104 mmol/L Normal 98-108 [facility] Comment on above: Performed By: #### L 501.5200, L100.0100, L500.4050 ####[facility] [address] [place], [address] CO2 [Moles/Vol] 24.4 mmol/L Normal 21.0-32.[address] [facility] Comment on above: Performed By: #### L 501.5200, L100.0100, L500.4050 ####[facility] [address] [place], [address] Creatinine [Mass/Vol] 0.67 mg/dL Low 0.70-1.20 [facility] Comment on above: Performed By: #### L 501.5200, L100.0100, L500.4050 ####[facility] [address] [place], [address] ECRCL 64.72 ml/min Normal 50-[address] [facility] Comment on above: Performed By: #### L 501.5200, L100.0100, L500.4050 ####[facility] [address] [place], [address] GAP 11 Normal 5-[address] [facility] Comment on above: Performed By: #### L 501.5200, L100.0100, L500.4050 ####[facility] [address] [place], [address] GFR/1.73 sq M.predicted among non-blacks MDRD (S/P/Bld) [Vol rate/Area] 98 mL/min/{1.73_m2} Normal >[address] [facility] Comment on above: Result Comment: mL/m in/1.73m2 CKD-EPI Creatinine Equation (2020) Performed By: #### L 501.5200, L100.0100, L500.4050 ####[facility] [address] [place], [address] Globulin (S) [Mass/Vol] 2.3 g/dL Normal 2.2-4.2 [facility] Comment on above: Performed By: #### L 501.5200, L100.0100, L500.4050 ####[facility] [address] [place], [address] Glucose [Mass/Vol] 143 mg/dL High 70-99 [facility] Comment on above: Performed By: #### L 501.5200, L100.0100, L500.4050 ####[facility] [address] [place], [address] Potassium [Moles/Vol] 4.2 mmol/L Normal 3.3-5.1 [facility] Comment on above: Performed By: #### L 501.5200, L100.0100, L500.4050 ####[facility] [address] [place], [address] Sodium [Moles/Vol] 140 mmol/L Normal 133-145 [facility] Comment on above: Performed By: #### L 501.5200, L100.0100, L500.4050 ####[facility] [address] [place], [address] T PROT 6.5 g/dL Normal 5.9-8.[address] [facility] Comment on above: Performed By: #### L 501.5200, L100.0100, L500.4050 ####[facility] [address] [place], [address] Urea nitrogen [Mass/Vol] 14 mg/dL Normal 4-[address] [facility] Comment on above: Performed By: #### L 501.5200, L100.0100, L500.4050 ####[facility] [address] [place], [address] Eosinophil percentageOrdered By: Zulay Celis on 12-22-2024 Eosinophils/100 WBC (Bld) 2.0 % 0-[address] [facility] Erythrocyte distribution wid th ratioOrdered By: Zulay Celis on 12-22-2024 Erythrocyte distribution width (RBC) [Ratio] 18.6 % High 11.6-14.[address] [facility] Erythrocyte distribution wid th standard deviationOrdered By: Zulay Celis on 12-22-2024 Erythrocyte distribution width (RBC) [Ratio] 70.3 fl High 35.1-43.[address] [facility] Glomerular filtration rate ( GFR) estimation/1.73 sq m using serum, plasma, or whole bOrdered By: Zulay Celis on 12-22-2024 GFR/1.73 sq M.predicted among non-blacks MDRD (S/P/Bld) [Vol rate/Area] 98 mL/min/{1.73_m2} >[address] [facility] Comment on above: mL/min/1.73m2 CKD-EP I Creatinine Equation (2020) Hematocrit Auto (Bld) [Volum e fraction]Ordered By: Zulay Celis on 12-22-2024 Hematocrit (Bld) [Volume fraction] 28.2 % Low 40-[address] [facility] Hemoglobin measurementOrdere d By: Zulay Celis on 12-22-2024 Hemoglobin (Bld) [Mass/Vol] 9.4 g/dL Low 13.0-16.[address] [facility] Immature granulocytes/100 WB C Auto (Bld)Ordered By: Zulay Celis on 12-22-2024 Immature granulocytes/100 WBC (Bld) 0.500 % 0.0-0.[address] [facility] Comment on above: IG% - Immature Granu locytes (promyelocytes, myelocytes and metamyelocytes) > 1% indicates that a LEFT SHIFT is Present. Laboratory - Chemistry and C hemistry - challengeOrdered By: [facility] Troymat Celis on 12-22-2024 AST [Catalytic activity/Vol] 37 U/L <[address] [facility] Laboratory - Hematology and Cell countsOrdered By: [facility] Troymat Celis on 12-22-2024 Anisocytosis Ql (Bld) 1+ [facility] MCV (mean corpuscular volume ) determinationOrdered By: Zulay Celis on 12-22-2024 MCV (RBC) [Entitic vol] 104.4 fL High 80-94 [facility] Magnesiumon 12-22-2024 Magnesium [Mass/Vol] 2.4 mg/dL High 1.5-2.2 [facility] Comment on above: Performed By: #### L 501.5200, L100.0100, L500.4050 ####[facility] [address] [place], [place], [id number] Magnesium measurement (mass/ volume)Ordered By: [facility] Troymat Celis on 12-22-2024 Magnesium (Unsp spec) [Mass/Vol] 2.4 mg/dL High 1.5-2.[address] [facility] Mean corpuscular hemoglobin (MCH) determinationOrdered By: [facility] Troymat Celis on 12-22-2024 MCH (RBC) [Entitic mass] 34.8 pg High 27.0-32.[address] [facility] Mean corpuscular hemoglobin concentration (MCHC) determinationOrdered By: [facility] Troymat Celis on 12-22-2024 MCHC (RBC) [Mass/Vol] 33.3 g/dL 32-36 [facility] Mean platelet volume determi nationOrdered By: Zulay Celis on 12-22-2024 Platelet mean volume (Bld) [Entitic vol] 8.8 fL 6.2-12.0 [facility] Monocyte percentageOrdered B y: Zulay Celis on 12-22-2024 Monocytes/100 WBC (Bld) 17.5 % High 0-10 [facility] Neutrophil percentageOrdered By: Zulay Celis on 12-22-2024 Neutrophils/100 WBC (Bld) 63.5 % 47-[address] [facility] Nucleated red blood cell per centageOrdered By: Zulay Celis on 12-22-2024 Nucleated RBC/100 WBC (Bld) [Ratio] 0 % 0-[address] [facility] Oncology Visit Reporton 11-25 Oncology Visit Report Normal [facility] Ovalocyte detectionOrdered B y: Zulay Celis on 12-22-2024 Ovalocytes LM Ql (Bld) 1+ [facility] Platelet countOrdered By: Nasima Celis on 12-22-2024 Platelets (Bld) [#/Vol] 164 10*3/uL 150-[address] [facility] Platelet estimateOrdered By: Zulay Celis on 12-22-2024 Platelets LM Ql (Bld) A ADEQ [facility] Potassium measurement (mass/ volume)Ordered By: Zulay Celis on 12-22-2024 Potassium (Unsp spec) [Mass/Vol] 4.2 mmol/L 3.3-5.[address] [facility] RBC Auto (Bld) [#/Vol]Ordere d By: Zulay Celis on 12-22-2024 RBC (Bld) [#/Vol] 2.70 10*6/uL Low 4.6-6.2 [facility] Serum creatinine measurement (mass/volume)Ordered By: Zulay Celis on 12-22-2024 Creatinine [Mass/Vol] 0.67 mg/dL Low 0.70-1.20 [facility] Serum globulin measurementOr dered By: Zulay Celis on 12-22-2024 Globulin (S) [Mass/Vol] 2.3 g/dL 2.2-4.2 [facility] Serum glucose measurement (m ass/volume)Ordered By: Zualy Celis on 12-22-2024 Glucose [Mass/Vol] 143 mg/dL High 70-99 [facility] Serum or plasma alanine lucia otransferase (ALT) measurementOrdered By: Zulay Celis on 12-22-2024 ALT [Catalytic activity/Vol] 31 U/L <[address] [facility] Serum or plasma albumin darian urement (mass/volume)Ordered By: Zulay Celis on 12-22-2024 Albumin [Mass/Vol] 4.2 g/dL 3.4-4.8 [facility] Serum or plasma albumin/glob ulin mass ratioOrdered By: Zulay Celis on 12-22-2024 Albumin/Globulin [Mass ratio] 1.9 {ratio} 0.9-2.[address] [facility] Serum or plasma alkaline trudi sphatase measurementOrdered By: Zulay Celis on 12-22-2024 ALP [Catalytic activity/Vol] 74 U/L 40-[address] [facility] Serum or plasma calcium darian urement (mass/volume)Ordered By: Zulay Celis on 12-22-2024 Calcium [Mass/Vol] 9.4 mg/dL 7.6-11.0 [facility] Serum or plasma urea nitroge n measurement (mass/volume)Ordered By: Zulay Celis on 12-22-2024 Urea nitrogen [Mass/Vol] 14 mg/dL 4-[address] [facility] Sodium levelOrdered By: Ines Celis on 12-22-2024 Sodium [Moles/Vol] 140 mmol/L 133-145 [facility] Total proteinOrdered By: Kostas Celis on 12-22-2024 Protein [Mass/Vol] 6.5 g/dL 5.9-8.4 [facility] White blood cell (WBC) count Ordered By: Zulay Celis on 12-22-2024 WBC (Bld) [#/Vol] 4.0 10*3/uL Low 4.4-11.0 [facility] Absolute lymphocyte countOrd ered By: Zulay Celis on 12-08-2024 Lymphocytes Auto (Unsp spec) [#/Vol] 0.78 10*3/uL Low 0.83-4.[address] [facility] Absolute neutrophil countOrd ered By: Inesmat Celis on 12-08-2024 Neutrophils (Bld) [#/Vol] 2.3 10*3/uL 2.0-7.[address] [facility] Anion gap in Serum or Plasma Ordered By: Zulay Celis on 12-08-2024 Anion gap [Moles/Vol] 11 mmol/L 10-08 [facility] Automated lymphocyte count a s percentage of total leukocytesOrdered By: Zulay Celis on 12-08-2024 Lymphocytes/100 WBC Auto (Unsp spec) 18.9 % Low 19-[address] [facility] BUN/creatinine ratioOrdered By: [facility] Troymat Celis on 12-08-2024 Urea nitrogen/Creatinine [Mass ratio] 24.7 mg/mg High 10-[address] [facility] Basophil percentageOrdered B y: Zulay Celis on 12-08-2024 Basophils/100 WBC (Bld) 1.2 % High 0-1 [facility] Bilirubin, totalOrdered By: [facility] Troymat Celis on 12-08-2024 Bilirubin [Mass/Vol] 0.88 mg/dL 0.00-1.30 [facility] Blood schistocyte detection by light microscopyOrdered By: Zulay Celis on 12-08-2024 Schistocytes LM Ql (Bld) 1+ [facility] CBC W/Diff, Automatedon 11-24 ACANTHOCYTE 1+ Normal [facility] Comment on above: Performed By: #### L 100.0100, L500.4050, L501.5200 ####[facility] [address] [place], [address] Anisocytosis Ql (Bld) 1+ Normal [facility] Comment on above: Performed By: #### L 100.0100, L500.4050, L501.5200 ####[facility] [address] [place], [address] OVALOCYTE 1+ Normal [facility] Comment on above: Performed By: #### L 100.0100, L500.4050, L501.5200 ####[facility] [address] [place], [address] PLT EST A Normal ADEQ [facility] Comment on above: Performed By: #### L 100.0100, L500.4050, L501.5200 ####[facility] [address] [place], [address] SCHISTOCYTES 1+ Normal [facility] Comment on above: Performed By: #### L 100.0100, L500.4050, L501.5200 ####[facility] [address] [place], [address] Carbon dioxide, total [Moles /volume] in Central venous bloodOrdered By: Zulay Celis on 12-08-2024 CO2 [Moles/Vol] 26.0 mmol/L 21.0-32.[address] [facility] Chloride assayOrdered By: Nasima Celis on 12-08-2024 Chloride [Moles/Vol] 105 mmol/L 98-108 [facility] Comprehensive Metabolic Prof ilon 12-08-2024 Albumin [Mass/Vol] 4.2 g/dL Normal 3.4-4.8 [facility] Comment on above: Performed By: #### L 100.0100, L500.4050, L501.5200 ####[facility] [address] [place], [address] Albumin/Globulin [Mass ratio] 1.8 {ratio} Normal 0.9-2.[address] [facility] Comment on above: Performed By: #### L 100.0100, L500.4050, L501.5200 ####[facility] [address] [place], [address] ALK PHOS 70 U/L Normal 40-[address] [facility] Comment on above: Performed By: #### L 100.0100, L500.4050, L501.5200 ####[facility] [address] [place], [address] ALT [Catalytic activity/Vol] 27 U/L Normal <=[address] [facility] Comment on above: Performed By: #### L 100.0100, L500.4050, L501.5200 ####[facility] [address] [place], [address] AST [Catalytic activity/Vol] 34 U/L Normal <=[address] [facility] Comment on above: Performed By: #### L 100.0100, L500.4050, L501.5200 ####[facility] [address] [place], [address] Bilirubin [Mass/Vol] 0.88 mg/dL Normal 0.00-1.30 [facility] Comment on above: Performed By: #### L 100.0100, L500.4050, L501.5200 ####[facility] [address] [place], [address] BUN/CRE 24.7 RATIO High 10-[address] [facility] Comment on above: Performed By: #### L 100.0100, L500.4050, L501.5200 ####[facility] [address] [place], [address] Calcium [Mass/Vol] 9.5 mg/dL Normal 7.6-11.0 [facility] Comment on above: Performed By: #### L 100.0100, L500.4050, L501.5200 ####[facility] [address] [place], [address] Chloride [Moles/Vol] 105 mmol/L Normal 98-108 [facility] Comment on above: Performed By: #### L 100.0100, L500.4050, L501.5200 ####[facility] [address] [place], [address] CO2 [Moles/Vol] 26.0 mmol/L Normal 21.0-32.[address] [facility] Comment on above: Performed By: #### L 100.0100, L500.4050, L501.5200 ####[facility] [address] [place], [address] Creatinine [Mass/Vol] 0.66 mg/dL Low 0.70-1.20 [facility] Comment on above: Performed By: #### L 100.0100, L500.4050, L501.5200 ####[facility] [address] [place], [address] ECRCL 64.72 ml/min Normal 50-[address] [facility] Comment on above: Performed By: #### L 100.0100, L500.4050, L501.5200 ####[facility] [address] [place], [address] GAP 11 Normal 5-[address] [facility] Comment on above: Performed By: #### L 100.0100, L500.4050, L501.5200 ####[facility] [address] [place], [address] GFR/1.73 sq M.predicted among non-blacks MDRD (S/P/Bld) [Vol rate/Area] 98 mL/min/{1.73_m2} Normal >[address] [facility] Comment on above: Result Comment: mL/m in/1.73m2 CKD-EPI Creatinine Equation (2020) Performed By: #### L 100.0100, L500.4050, L501.5200 ####[facility] [address] [place], [address] Globulin (S) [Mass/Vol] 2.3 g/dL Normal 2.2-4.2 [facility] Comment on above: Performed By: #### L 100.0100, L500.4050, L501.5200 ####[facility] [address] [place], [address] Glucose [Mass/Vol] 135 mg/dL High 70-99 [facility] Comment on above: Performed By: #### L 100.0100, L500.4050, L501.5200 ####[facility] [address] [place], [address] Potassium [Moles/Vol] 3.9 mmol/L Normal 3.3-5.1 [facility] Comment on above: Performed By: #### L 100.0100, L500.4050, L501.5200 ####[facility] [address] [place], [address] Sodium [Moles/Vol] 142 mmol/L Normal 133-145 [facility] Comment on above: Performed By: #### L 100.0100, L500.4050, L501.5200 ####[facility] [address] [place], [address] T PROT 6.4 g/dL Normal 5.9-8.[address] [facility] Comment on above: Performed By: #### L 100.0100, L500.4050, L501.5200 ####[facility] [address] [place], [address] Urea nitrogen [Mass/Vol] 16 mg/dL Normal 4-[address] [facility] Comment on above: Performed By: #### L 100.0100, L500.4050, L501.5200 ####[facility] [address] [place], [address] Eosinophil percentageOrdered By: Zulay Celis on 12-08-2024 Eosinophils/100 WBC (Bld) 3.2 % 0-[address] [facility] Erythrocyte distribution wid th ratioOrdered By: Zulay Celis on 12-08-2024 Erythrocyte distribution width (RBC) [Ratio] 18.6 % High 11.6-14.[address] [facility] Erythrocyte distribution wid th standard deviationOrdered By: Zulay Celis on 12-08-2024 Erythrocyte distribution width (RBC) [Ratio] 70.6 fl High 35.1-43.[address] [facility] Glomerular filtration rate ( GFR) estimation/1.73 sq m using serum, plasma, or whole bOrdered By: Zulay Celis on 12-08-2024 GFR/1.73 sq M.predicted among non-blacks MDRD (S/P/Bld) [Vol rate/Area] 98 mL/min/{1.73_m2} >[address] [facility] Comment on above: mL/min/1.73m2 CKD-EP I Creatinine Equation (2020) Hematocrit Auto (Bld) [Volum e fraction]Ordered By: [facility] Troymat Celis on 12-08-2024 Hematocrit (Bld) [Volume fraction] 28.9 % Low 40-[address] [facility] Hemoglobin measurementOrdere d By: Zulay Celis on 12-08-2024 Hemoglobin (Bld) [Mass/Vol] 9.4 g/dL Low 13.0-16.[address] [facility] Immature granulocytes/100 WB C Auto (Bld)Ordered By: Zulay Celis on 12-08-2024 Immature granulocytes/100 WBC (Bld) 1.500 % High 0.0-0.[address] [facility] Comment on above: IG% - Immature Granu locytes (promyelocytes, myelocytes and metamyelocytes) > 1% indicates that a LEFT SHIFT is Present. L509.6001on 12-08-2024 CORTISOL 11.10 ug/dL Normal 6.02-18.[address] [facility] Comment on above: Performed By: #### L 501.2300, L509.6001, L506.0400, L501.9520 ####[facility] [address] [place], [place], [id number] Laboratory - Chemistry and C hemistry - challengeOrdered By: [facility] Troymat Celis on 12-08-2024 AST [Catalytic activity/Vol] 34 U/L <[address] [facility] Laboratory - Hematology and Cell countsOrdered By: Zulay Celis on 12-08-2024 Anisocytosis Ql (Bld) 1+ [facility] MCV (mean corpuscular volume ) determinationOrdered By: Zulay Celis on 12-08-2024 MCV (RBC) [Entitic vol] 103.6 fL High 80-94 [facility] Magnesiumon 12-08-2024 Magnesium [Mass/Vol] 2.4 mg/dL High 1.5-2.2 [facility] Comment on above: Performed By: #### L 100.0100, L500.4050, L501.5200 ####[facility] [address] [place], [place], [id number] Magnesium measurement (mass/ volume)Ordered By: Zulay Celis on 12-08-2024 Magnesium (Unsp spec) [Mass/Vol] 2.4 mg/dL High 1.5-2.[address] [facility] Mean corpuscular hemoglobin (MCH) determinationOrdered By: Zulay Celis on 12-08-2024 MCH (RBC) [Entitic mass] 33.7 pg High 27.0-32.[address] [facility] Mean corpuscular hemoglobin concentration (MCHC) determinationOrdered By: Zulay Celis on 12-08-2024 MCHC (RBC) [Mass/Vol] 32.5 g/dL 32-36 [facility] Mean platelet volume determi nationOrdered By: Zulay Celis on 12-08-2024 Platelet mean volume (Bld) [Entitic vol] 9.5 fL 6.2-12.[address] [facility] Monocyte percentageOrdered B y: Zulay Celis on 12-08-2024 Monocytes/100 WBC (Bld) 19.7 % High 0-10 [facility] Neutrophil percentageOrdered By: [facility] Troymat Celis on 12-08-2024 Neutrophils/100 WBC (Bld) 55.5 % 47-[address] [facility] Nucleated red blood cell per centageOrdered By: [facility] Troymat Celis on 12-08-2024 Nucleated RBC/100 WBC (Bld) [Ratio] 0 % 0-[address] [facility] Oncology Visit Reporton 11-24 Oncology Visit Report Normal [facility] Ovalocyte detectionOrdered B y: Zulay Celis on 12-08-2024 Ovalocytes LM Ql (Bld) 1+ [facility] Phosphoruson 12-08-2024 Phosphate [Mass/Vol] 3.7 mg/dL Normal 2.7-4.5 [facility] Comment on above: Performed By: #### L 501.2300, L509.6001, L506.0400, L501.9520 ####[facility] [address] [place], [address] Platelet countOrdered By: Nasima Celis on 12-08-2024 Platelets (Bld) [#/Vol] 163 10*3/uL 150-[address] [facility] Platelet estimateOrdered By: Zulay Celis on 12-08-2024 Platelets LM Ql (Bld) A ADEQ [facility] Potassium measurement (mass/ volume)Ordered By: Zulay Celis on 12-08-2024 Potassium (Unsp spec) [Mass/Vol] 3.9 mmol/L 3.3-5.[address] [facility] RBC Auto (Bld) [#/Vol]Ordere d By: Zulay Celis on 12-08-2024 RBC (Bld) [#/Vol] 2.79 10*6/uL Low 4.6-6.2 [facility] Serum creatinine measurement (mass/volume)Ordered By: Zulay Celis on 12-08-2024 Creatinine [Mass/Vol] 0.66 mg/dL Low 0.70-1.20 [facility] Serum globulin measurementOr dered By: Zulay Celis on 12-08-2024 Globulin (S) [Mass/Vol] 2.3 g/dL 2.2-4.2 [facility] Serum glucose measurement (m ass/volume)Ordered By: Zulay Celis on 12-08-2024 Glucose [Mass/Vol] 135 mg/dL High 70-99 [facility] Serum or plasma alanine lucia otransferase (ALT) measurementOrdered By: Zulay Celis on 12-08-2024 ALT [Catalytic activity/Vol] 27 U/L <[address] [facility] Serum or plasma albumin darian urement (mass/volume)Ordered By: Zulay eClis on 12-08-2024 Albumin [Mass/Vol] 4.2 g/dL 3.4-4.8 [facility] Serum or plasma albumin/glob ulin mass ratioOrdered By: Zulay Celis on 12-08-2024 Albumin/Globulin [Mass ratio] 1.8 {ratio} 0.9-2.[address] [facility] Serum or plasma alkaline trudi sphatase measurementOrdered By: Zulay Celis on 12-08-2024 ALP [Catalytic activity/Vol] 70 U/L 40-[address] [facility] Serum or plasma calcium darian urement (mass/volume)Ordered By: Zulay Celis on 12-08-2024 Calcium [Mass/Vol] 9.5 mg/dL 7.6-11.0 [facility] Serum or plasma cortisol sandra surement (mass/volume)Ordered By: Zulay Celis on 12-08-2024 Cortisol [Mass/Vol] 11.10 ug/dL 6.02-18.40 [facility] Serum or plasma urea nitroge n measurement (mass/volume)Ordered By: Zulay Celis on 12-08-2024 Urea nitrogen [Mass/Vol] 16 mg/dL 4-[address] [facility] Sodium levelOrdered By: Ines Celis on 12-08-2024 Sodium [Moles/Vol] 142 mmol/L 133-145 [facility] T4 Free Directon 12-08-2024 T4 FREE DIRECT 1.30 ng/dL Normal 0.76-1.[address] [facility] Comment on above: Performed By: #### L 501.2300, L509.6001, L506.0400, L501.9520 ####[facility] [address] [place], [address] T4 freeOrdered By: Zulay quezada on 12-08-2024 Free T4 [Mass/Vol] 1.30 ng/dL 0.76-1.46 [facility] TSH DL <= 0.005 mIU/L QnOrde red By: Inesmat Celis on 12-08-2024 TSH Qn 2.600 uIU/mL 0.300-4.[address] [facility] Thyroid Stim Hormone (TSH)on 12-08-2024 TSH 2.600 uIU/mL Normal 0.300-4.[address] [facility] Comment on above: Performed By: #### L 501.2300, L509.6001, L506.0400, L501.9520 ####[facility] [address] [place], [address] Total proteinOrdered By: Kostas ahn Vimal on 12-08-2024 Protein [Mass/Vol] 6.4 g/dL 5.9-8.4 [facility] White blood cell (WBC) count Ordered By: Zulay Celis on 12-08-2024 WBC (Bld) [#/Vol] 4.1 10*3/uL Low 4.4-11.0 [facility] Absolute lymphocyte countOrd ered By: Zulay Celis on 11-24-2024 Lymphocytes Auto (Unsp spec) [#/Vol] 0.79 10*3/uL Low 0.83-4.[address] [facility] Absolute neutrophil countOrd ered By: [facility] Troymat Celis on 11-24-2024 Neutrophils (Bld) [#/Vol] 2.2 10*3/uL 2.0-7.[address] [facility] Anion gap in Serum or Plasma Ordered By: Zulay Celis on 11-24-2024 Anion gap [Moles/Vol] 10 mmol/L 5-15 [facility] Automated lymphocyte count a s percentage of total leukocytesOrdered By: Zulay Celis on 11-24-2024 Lymphocytes/100 WBC Auto (Unsp spec) 20.6 % 19-[address] [facility] BUN/creatinine ratioOrdered By: Zulay Celis on 11-24-2024 Urea nitrogen/Creatinine [Mass ratio] 24.6 mg/mg High 10-[address] [facility] Basophil percentageOrdered B y: Zulay Celis on 11-24-2024 Basophils/100 WBC (Bld) 1.0 % 0-1 [facility] Bilirubin, totalOrdered By: Zulay Celis on 11-24-2024 Bilirubin [Mass/Vol] 0.76 mg/dL 0.00-1.30 [facility] Blood polychromasia detectio n by light microscopyOrdered By: Zulay Celis on 11-24-2024 Polychromasia LM Ql (Bld) 1+ [facility] CBC W/Diff, Automatedon Anisocytosis Ql (Bld) 1+ Normal [facility] Comment on above: Performed By: #### L 500.4050, L100.0100, L501.5200 ####[facility] [address] [place], [address] SCHISTOCYTES 1+ Normal [facility] Comment on above: Performed By: #### L 500.4050, L100.0100, L501.5200 ####[facility] [address] [place], [address] OVALOCYTE 1+ Normal [facility] Comment on above: Performed By: #### L 500.4050, L100.0100, L501.5200 ####[facility] [address] [place], [address] PLT EST A Normal ADEQ [facility] Comment on above: Performed By: #### L 500.4050, L100.0100, L501.5200 ####[facility] [address] [place], [address] POLYCHROMASIA 1+ Normal [facility] Comment on above: Performed By: #### L 500.4050, L100.0100, L501.5200 ####[facility] [address] [place], [address] TEAR DROP 1+ Normal [facility] Comment on above: Performed By: #### L 500.4050, L100.0100, L501.5200 ####[facility] [address] [place], [address] Carbon dioxide, total [Moles /volume] in Central venous bloodOrdered By: Zulay Celis on 11-24-2024 CO2 [Moles/Vol] 25.9 mmol/L 21.0-32.[address] [facility] Chloride assayOrdered By: Nasima Celis on 11-24-2024 Chloride [Moles/Vol] 104 mmol/L 98-108 [facility] Comprehensive Metabolic Prof ilon 11-24-2024 Albumin [Mass/Vol] 4.1 g/dL Normal 3.4-4.8 [facility] Comment on above: Performed By: #### L 500.4050, L100.0100, L501.5200 ####[facility] [address] [place], [address] Albumin/Globulin [Mass ratio] 1.8 {ratio} Normal 0.9-2.[address] [facility] Comment on above: Performed By: #### L 500.4050, L100.0100, L501.5200 ####[facility] [address] [place], [address] ALK PHOS 75 U/L Normal 40-[address] [facility] Comment on above: Performed By: #### L 500.4050, L100.0100, L501.5200 ####[facility] [address] [place], [address] ALT [Catalytic activity/Vol] 27 U/L Normal <=[address] [facility] Comment on above: Performed By: #### L 500.4050, L100.0100, L501.5200 ####[facility] [address] [place], [address] AST [Catalytic activity/Vol] 35 U/L Normal <=[address] [facility] Comment on above: Performed By: #### L 500.4050, L100.0100, L501.5200 ####[facility] [address] [place], [address] Bilirubin [Mass/Vol] 0.76 mg/dL Normal 0.00-1.30 [facility] Comment on above: Performed By: #### L 500.4050, L100.0100, L501.5200 ####[facility] [address] [place], [address] BUN/CRE 24.6 RATIO High 10-[address] [facility] Comment on above: Performed By: #### L 500.4050, L100.0100, L501.5200 ####[facility] [address] [place], [address] Calcium [Mass/Vol] 9.2 mg/dL Normal 7.6-11.0 [facility] Comment on above: Performed By: #### L 500.4050, L100.0100, L501.5200 ####[facility] [address] [place], [address] Chloride [Moles/Vol] 104 mmol/L Normal 98-108 [facility] Comment on above: Performed By: #### L 500.4050, L100.0100, L501.5200 ####[facility] [address] [place], [address] CO2 [Moles/Vol] 25.9 mmol/L Normal 21.0-32.[address] [facility] Comment on above: Performed By: #### L 500.4050, L100.0100, L501.5200 ####[facility] [address] [place], [address] Creatinine [Mass/Vol] 0.65 mg/dL Low 0.70-1.20 [facility] Comment on above: Performed By: #### L 500.4050, L100.0100, L501.5200 ####[facility] [address] [place], [address] ECRCL 65.65 ml/min Normal 50-[address] [facility] Comment on above: Performed By: #### L 500.4050, L100.0100, L501.5200 ####[facility] [address] [place], [address] GAP 10 Normal 5-[address] [facility] Comment on above: Performed By: #### L 500.4050, L100.0100, L501.5200 ####[facility] [address] [place], [address] GFR/1.73 sq M.predicted among non-blacks MDRD (S/P/Bld) [Vol rate/Area] 98 mL/min/{1.73_m2} Normal >[address] [facility] Comment on above: Result Comment: mL/m in/1.73m2 CKD-EPI Creatinine Equation (2020) Performed By: #### L 500.4050, L100.0100, L501.5200 ####[facility] [address] [place], [address] Globulin (S) [Mass/Vol] 2.3 g/dL Normal 2.2-4.2 [facility] Comment on above: Performed By: #### L 500.4050, L100.0100, L501.5200 ####[facility] [address] [place], [address] Glucose [Mass/Vol] 120 mg/dL High 70-99 [facility] Comment on above: Performed By: #### L 500.4050, L100.0100, L501.5200 ####[facility] [address] [place], [address] Potassium [Moles/Vol] 4.1 mmol/L Normal 3.3-5.1 [facility] Comment on above: Performed By: #### L 500.4050, L100.0100, L501.5200 ####[facility] [address] [place], [address] Sodium [Moles/Vol] 140 mmol/L Normal 133-145 [facility] Comment on above: Performed By: #### L 500.4050, L100.0100, L501.5200 ####[facility] [address] [place], [address] T PROT 6.4 g/dL Normal 5.9-8.[address] [facility] Comment on above: Performed By: #### L 500.4050, L100.0100, L501.5200 ####[facility] [address] [place], [address] Urea nitrogen [Mass/Vol] 16 mg/dL Normal 4-[address] [facility] Comment on above: Performed By: #### L 500.4050, L100.0100, L501.5200 ####[facility] [address] [place], [address] Eosinophil percentageOrdered By: Zulay Celis on 11-24-2024 Eosinophils/100 WBC (Bld) 3.4 % 0-[address] [facility] Erythrocyte distribution wid th ratioOrdered By: Zulay Celis on 11-24-2024 Erythrocyte distribution width (RBC) [Ratio] 18.2 % High 11.6-14.[address] [facility] Erythrocyte distribution wid th standard deviationOrdered By: Zulay Celis on 11-24-2024 Erythrocyte distribution width (RBC) [Ratio] 68.6 fl High 35.1-43.[address] [facility] Glomerular filtration rate ( GFR) estimation/1.73 sq m using serum, plasma, or whole bOrdered By: Zulay Celis on 11-24-2024 GFR/1.73 sq M.predicted among non-blacks MDRD (S/P/Bld) [Vol rate/Area] 98 mL/min/{1.73_m2} >[address] [facility] Comment on above: mL/min/1.73m2 CKD-EP I Creatinine Equation (2020) Hematocrit Auto (Bld) [Volum e fraction]Ordered By: [facility] Troymat Celis on 11-24-2024 Hematocrit (Bld) [Volume fraction] 29.0 % Low 40-[address] [facility] Hemoglobin measurementOrdere d By: Zulay Celis on 11-24-2024 Hemoglobin (Bld) [Mass/Vol] 9.6 g/dL Low 13.0-16.[address] [facility] Immature granulocytes/100 WB C Auto (Bld)Ordered By: Zulay Celis on 11-24-2024 Immature granulocytes/100 WBC (Bld) 0.500 % 0.0-0.[address] [facility] Comment on above: IG% - Immature Granu locytes (promyelocytes, myelocytes and metamyelocytes) > 1% indicates that a LEFT SHIFT is Present. Laboratory - Chemistry and C hemistry - challengeOrdered By: Zulay Celis on 11-24-2024 AST [Catalytic activity/Vol] 35 U/L <[address] [facility] MCV (mean corpuscular volume ) determinationOrdered By: Zulay Celis on 11-24-2024 MCV (RBC) [Entitic vol] 102.5 fL High 80-94 [facility] Magnesiumon 11-24-2024 Magnesium [Mass/Vol] 2.3 mg/dL High 1.5-2.2 [facility] Comment on above: Performed By: #### L 500.4050, L100.0100, L501.5200 ####[facility] [address] [place], [place], [id number] Magnesium measurement (mass/ volume)Ordered By: Zulay Celis on 11-24-2024 Magnesium (Unsp spec) [Mass/Vol] 2.3 mg/dL High 1.5-2.[address] [facility] Mean corpuscular hemoglobin (MCH) determinationOrdered By: Zulay Celis on 11-24-2024 MCH (RBC) [Entitic mass] 33.9 pg High 27.0-32.[address] [facility] Mean corpuscular hemoglobin concentration (MCHC) determinationOrdered By: Zulay Celis on 11-24-2024 MCHC (RBC) [Mass/Vol] 33.1 g/dL 32-36 [facility] Mean platelet volume determi nationOrdered By: Zulay Celis on 11-24-2024 Platelet mean volume (Bld) [Entitic vol] 9.3 fL 6.2-12.[address] [facility] Monocyte percentageOrdered B y: Zulay Celis on 11-24-2024 Monocytes/100 WBC (Bld) 18.2 % High 0-10 [facility] Neutrophil percentageOrdered By: Zulay Celis on 11-24-2024 Neutrophils/100 WBC (Bld) 56.3 % 47-[address] [facility] Nucleated red blood cell per centageOrdered By: Zulay Celis on 11-24-2024 Nucleated RBC/100 WBC (Bld) [Ratio] 0 % 0-[address] [facility] Oncology Visit Reporton 07 Oncology Visit Report Normal [facility] Platelet countOrdered By: Nasima Celis on 11-24-2024 Platelets (Bld) [#/Vol] 172 10*3/uL 150-[address] [facility] Potassium measurement (mass/ volume)Ordered By: Zulay Celis on 11-24-2024 Potassium (Unsp spec) [Mass/Vol] 4.1 mmol/L 3.3-5.[address] [facility] RBC Auto (Bld) [#/Vol]Ordere d By: Zulay Celis on 11-24-2024 RBC (Bld) [#/Vol] 2.83 10*6/uL Low 4.6-6.2 [facility] Serum creatinine measurement (mass/volume)Ordered By: Zulay Celis on 11-24-2024 Creatinine [Mass/Vol] 0.65 mg/dL Low 0.70-1.20 [facility] Serum globulin measurementOr dered By: uZlay Celis on 11-24-2024 Globulin (S) [Mass/Vol] 2.3 g/dL 2.2-4.2 [facility] Serum glucose measurement (m ass/volume)Ordered By: Zulay Celis on 11-24-2024 Glucose [Mass/Vol] 120 mg/dL High 70-99 [facility] Serum or plasma alanine lucia otransferase (ALT) measurementOrdered By: Zulay Celis on 11-24-2024 ALT [Catalytic activity/Vol] 27 U/L <[address] [facility] Serum or plasma albumin darian urement (mass/volume)Ordered By: Zulay Celis on 11-24-2024 Albumin [Mass/Vol] 4.1 g/dL 3.4-4.8 [facility] Serum or plasma albumin/glob ulin mass ratioOrdered By: Zulay Celis on 11-24-2024 Albumin/Globulin [Mass ratio] 1.8 {ratio} 0.9-2.[address] [facility] Serum or plasma alkaline trudi sphatase measurementOrdered By: Zulay Celis on 11-24-2024 ALP [Catalytic activity/Vol] 75 U/L 40-[address] [facility] Serum or plasma calcium darian urement (mass/volume)Ordered By: Zulay Celis on 11-24-2024 Calcium [Mass/Vol] 9.2 mg/dL 7.6-11.0 [facility] Serum or plasma urea nitroge n measurement (mass/volume)Ordered By: Zulay Celis on 11-24-2024 Urea nitrogen [Mass/Vol] 16 mg/dL 4-[address] [facility] Sodium levelOrdered By: Ines Celis on 11-24-2024 Sodium [Moles/Vol] 140 mmol/L 133-145 [facility] Teardrop cell detectionOrder ed By: Zulay Celis on 11-24-2024 Dacrocytes LM Ql (Bld) 1+ Wo [facility] Total proteinOrdered By: Kostas Celis on 11-24-2024 Protein [Mass/Vol] 6.4 g/dL 5.9-8.4 [facility] White blood cell (WBC) count Ordered By: Zulay Celis on 11-24-2024 WBC (Bld) [#/Vol] 3.8 10*3/uL Low 4.4-11.0 [facility] Absolute lymphocyte countOrd ered By: Zulay Celis on 11-11-2024 Lymphocytes Auto (Unsp spec) [#/Vol] 0.84 10*3/uL 0.83-4.[address] [facility] Absolute neutrophil countOrd ered By: Inesmat Celis on 11-11-2024 Neutrophils (Bld) [#/Vol] 2.4 10*3/uL 2.0-7.[address] [facility] Anion gap in Serum or Plasma Ordered By: Zulay Celis on 11-11-2024 Anion gap [Moles/Vol] 9 mmol/L 5-15 [facility] Automated lymphocyte count a s percentage of total leukocytesOrdered By: Zulay Celis on 11-11-2024 Lymphocytes/100 WBC Auto (Unsp spec) 20.1 % 19-[address] [facility] BUN/creatinine ratioOrdered By: [facility] Troymat Celis on 11-11-2024 Urea nitrogen/Creatinine [Mass ratio] 20.9 mg/mg High 10-[address] [facility] Basophil percentageOrdered B y: Zulay Celis on 11-11-2024 Basophils/100 WBC (Bld) 1.0 % 0-1 [facility] Bilirubin, totalOrdered By: Zulay Celis on 11-11-2024 Bilirubin [Mass/Vol] 0.87 mg/dL 0.00-1.30 [facility] CBC W/Diff, Automatedon 10-25 Anisocytosis Ql (Bld) 2+ Normal [facility] Comment on above: Performed By: #### L 100.0100, L500.4050, L501.5200 ####[facility] [address] [place], [place], [id number] Carbon dioxide, total [Moles /volume] in Central venous bloodOrdered By: Zulay Celis on 11-11-2024 CO2 [Moles/Vol] 26.2 mmol/L 21.0-32.[address] [facility] Chloride assayOrdered By: Nasima Celis on 11-11-2024 Chloride [Moles/Vol] 105 mmol/L 98-108 [facility] Comprehensive Metabolic Prof ilon 11-11-2024 Albumin [Mass/Vol] 4.2 g/dL Normal 3.4-4.8 [facility] Comment on above: Performed By: #### L 100.0100, L500.4050, L501.5200 ####[facility] [address] [place], [address] Albumin/Globulin [Mass ratio] 1.9 {ratio} Normal 0.9-2.[address] [facility] Comment on above: Performed By: #### L 100.0100, L500.4050, L501.5200 ####[facility] [address] [place], [address] ALK PHOS 74 U/L Normal 40-[address] [facility] Comment on above: Performed By: #### L 100.0100, L500.4050, L501.5200 ####[facility] [address] [place], [address] ALT [Catalytic activity/Vol] 32 U/L Normal <=[address] [facility] Comment on above: Performed By: #### L 100.0100, L500.4050, L501.5200 ####[facility] [address] [place], [address] AST [Catalytic activity/Vol] 39 U/L High <=[address] [facility] Comment on above: Performed By: #### L 100.0100, L500.4050, L501.5200 ####[facility] [address] [place], [address] Bilirubin [Mass/Vol] 0.87 mg/dL Normal 0.00-1.30 [facility] Comment on above: Performed By: #### L 100.0100, L500.4050, L501.5200 ####[facility] [address] [place], [address] BUN/CRE 20.9 RATIO High 10-[address] [facility] Comment on above: Performed By: #### L 100.0100, L500.4050, L501.5200 ####[facility] [address] [place], [address] Calcium [Mass/Vol] 9.3 mg/dL Normal 7.6-11.0 [facility] Comment on above: Performed By: #### L 100.0100, L500.4050, L501.5200 ####[facility] [address] [place], [address] Chloride [Moles/Vol] 105 mmol/L Normal 98-108 [facility] Comment on above: Performed By: #### L 100.0100, L500.4050, L501.5200 ####[facility] [address] [place], [address] CO2 [Moles/Vol] 26.2 mmol/L Normal 21.0-32.[address] [facility] Comment on above: Performed By: #### L 100.0100, L500.4050, L501.5200 ####[facility] [address] [place], [address] Creatinine [Mass/Vol] 0.71 mg/dL Normal 0.70-1.20 [facility] Comment on above: Performed By: #### L 100.0100, L500.4050, L501.5200 ####[facility] [address] [place], [address] ECRCL 65.68 ml/min Normal 50-[address] [facility] Comment on above: Performed By: #### L 100.0100, L500.4050, L501.5200 ####[facility] [address] [place], [address] GAP 9 Normal 5-[address] [facility] Comment on above: Performed By: #### L 100.0100, L500.4050, L501.5200 ####[facility] [address] [place], [address] GFR/1.73 sq M.predicted among non-blacks MDRD (S/P/Bld) [Vol rate/Area] 96 mL/min/{1.73_m2} Normal >[address] [facility] Comment on above: Result Comment: mL/m in/1.73m2 CKD-EPI Creatinine Equation (2020) Performed By: #### L 100.0100, L500.4050, L501.5200 ####[facility] [address] [place], [address] Globulin (S) [Mass/Vol] 2.2 g/dL Normal 2.2-4.2 [facility] Comment on above: Performed By: #### L 100.0100, L500.4050, L501.5200 ####[facility] [address] [place], [address] Glucose [Mass/Vol] 148 mg/dL High 70-99 [facility] Comment on above: Performed By: #### L 100.0100, L500.4050, L501.5200 ####[facility] [address] [place], [address] Potassium [Moles/Vol] 4.3 mmol/L Normal 3.3-5.1 [facility] Comment on above: Performed By: #### L 100.0100, L500.4050, L501.5200 ####[facility] [address] [place], [address] Sodium [Moles/Vol] 141 mmol/L Normal 133-145 [facility] Comment on above: Performed By: #### L 100.0100, L500.4050, L501.5200 ####[facility] [address] [place], [address] T PROT 6.5 g/dL Normal 5.9-8.[address] [facility] Comment on above: Performed By: #### L 100.0100, L500.4050, L501.5200 ####[facility] [address] [place], [address] Urea nitrogen [Mass/Vol] 15 mg/dL Normal 4-[address] [facility] Comment on above: Performed By: #### L 100.0100, L500.4050, L501.5200 ####[facility] [address] [place], [address] Eosinophil percentageOrdered By: Zulay Celis on 11-11-2024 Eosinophils/100 WBC (Bld) 2.9 % 0-[address] [facility] Erythrocyte distribution wid th ratioOrdered By: [facility] Troymat Celis on 11-11-2024 Erythrocyte distribution width (RBC) [Ratio] 18.3 % High 11.6-14.[address] [facility] Erythrocyte distribution wid th standard deviationOrdered By: [facility] Troymat Celis on 11-11-2024 Erythrocyte distribution width (RBC) [Ratio] 68.3 fl High 35.1-43.[address] [facility] Glomerular filtration rate ( GFR) estimation/1.73 sq m using serum, plasma, or whole bOrdered By: [facility] Troymat Celis on 11-11-2024 GFR/1.73 sq M.predicted among non-blacks MDRD (S/P/Bld) [Vol rate/Area] 96 mL/min/{1.73_m2} >[address] [facility] Comment on above: mL/min/1.73m2 CKD-EP I Creatinine Equation (2020) Hematocrit Auto (Bld) [Volum e fraction]Ordered By: Zulay Celis on 11-11-2024 Hematocrit (Bld) [Volume fraction] 29.4 % Low 40-[address] [facility] Hemoglobin measurementOrdere d By: Zulay Celis on 11-11-2024 Hemoglobin (Bld) [Mass/Vol] 9.9 g/dL Low 13.0-16.[address] [facility] Immature granulocytes/100 WB C Auto (Bld)Ordered By: Zulay Celis on 11-11-2024 Immature granulocytes/100 WBC (Bld) 0.200 % 0.0-0.[address] [facility] Comment on above: IG% - Immature Granu locytes (promyelocytes, myelocytes and metamyelocytes) > 1% indicates that a LEFT SHIFT is Present. Laboratory - Chemistry and C hemistry - challengeOrdered By: Zulay Celis on 11-11-2024 AST [Catalytic activity/Vol] 39 U/L High <[address] [facility] Laboratory - Hematology and Cell countsOrdered By: Zulay Celis on 11-11-2024 Anisocytosis Ql (Bld) 2+ [facility] MCV (mean corpuscular volume ) determinationOrdered By: Zulay Celis on 11-11-2024 MCV (RBC) [Entitic vol] 101.0 fL High 80-94 [facility] Magnesiumon 11-11-2024 Magnesium [Mass/Vol] 2.5 mg/dL High 1.5-2.2 [facility] Comment on above: Performed By: #### L 100.0100, L500.4050, L501.5200 ####[facility] [address] [place], [address] Magnesium measurement (mass/ volume)Ordered By: Zulay Celis on 11-11-2024 Magnesium (Unsp spec) [Mass/Vol] 2.5 mg/dL High 1.5-2.[address] [facility] Mean corpuscular hemoglobin (MCH) determinationOrdered By: Zulay Celis on 11-11-2024 MCH (RBC) [Entitic mass] 34.0 pg High 27.0-32.[address] [facility] Mean corpuscular hemoglobin concentration (MCHC) determinationOrdered By: Zulay Celis on 11-11-2024 MCHC (RBC) [Mass/Vol] 33.7 g/dL 32-36 [facility] Mean platelet volume determi nationOrdered By: Zulay Celis on 11-11-2024 Platelet mean volume (Bld) [Entitic vol] 8.6 fL 6.2-12.[address] [facility] Monocyte percentageOrdered B y: Zulay Celis on 11-11-2024 Monocytes/100 WBC (Bld) 17.7 % High 0-10 [facility] Neutrophil percentageOrdered By: Zulay Celis on 11-11-2024 Neutrophils/100 WBC (Bld) 58.1 % 47-[address] [facility] Nucleated red blood cell per centageOrdered By: Zulay Celis on 11-11-2024 Nucleated RBC/100 WBC (Bld) [Ratio] 0 % 0-[address] [facility] Oncology Visit Reporton 10-25 Oncology Visit Report Normal [facility] Phosphoruson 11-11-2024 Phosphate [Mass/Vol] 3.6 mg/dL Normal 2.7-4.5 [facility] Comment on above: Performed By: #### L 501.2300 ####[facility] [address] [place], [address] Platelet countOrdered By: Nasima Celis on 11-11-2024 Platelets (Bld) [#/Vol] 162 10*3/uL 150-[address] [facility] Potassium measurement (mass/ volume)Ordered By: Zulay Celis on 11-11-2024 Potassium (Unsp spec) [Mass/Vol] 4.3 mmol/L 3.3-5.[address] [facility] RBC Auto (Bld) [#/Vol]Ordere d By: Zulay Celis on 11-11-2024 RBC (Bld) [#/Vol] 2.91 10*6/uL Low 4.6-6.2 [facility] Serum creatinine measurement (mass/volume)Ordered By: Zulay Celis on 11-11-2024 Creatinine [Mass/Vol] 0.71 mg/dL 0.70-1.20 [facility] Serum globulin measurementOr dered By: Zulay Celis on 11-11-2024 Globulin (S) [Mass/Vol] 2.2 g/dL 2.2-4.2 [facility] Serum glucose measurement (m ass/volume)Ordered By: Zulay Celis on 11-11-2024 Glucose [Mass/Vol] 148 mg/dL High 70-99 [facility] Serum or plasma alanine lucia otransferase (ALT) measurementOrdered By: Zulay Celis on 11-11-2024 ALT [Catalytic activity/Vol] 32 U/L <[address] [facility] Serum or plasma albumin darian urement (mass/volume)Ordered By: Inesmat Celis on 11-11-2024 Albumin [Mass/Vol] 4.2 g/dL 3.4-4.8 [facility] Serum or plasma albumin/glob ulin mass ratioOrdered By: Zulay Vimal on 11-11-2024 Albumin/Globulin [Mass ratio] 1.9 {ratio} 0.9-2.[address] [facility] Serum or plasma alkaline trudi sphatase measurementOrdered By: Inesmat Celis on 11-11-2024 ALP [Catalytic activity/Vol] 74 U/L 40-[address] [facility] Serum or plasma calcium darian urement (mass/volume)Ordered By: [facility] Troymat Celis on 11-11-2024 Calcium [Mass/Vol] 9.3 mg/dL 7.6-11.0 [facility] Serum or plasma urea nitroge n measurement (mass/volume)Ordered By: Inesmat Celis on 11-11-2024 Urea nitrogen [Mass/Vol] 15 mg/dL 4-[address] [facility] Sodium levelOrdered By: Ines Celis on 11-11-2024 Sodium [Moles/Vol] 141 mmol/L 133-145 [facility] TSH DL <= 0.005 mIU/L QnOrde red By: Laurie Vail on 11-11-2024 TSH Qn 3.010 uIU/mL 0.300-4.[address] [facility] Thyroid Stim Hormone (TSH)on 11-11-2024 TSH 3.010 uIU/mL Normal 0.300-4.[address] [facility] Comment on above: Order Comment: ADD O N FROM EARLIER TODAY, THANKS Performed By: #### L 501.9520 ####[facility] [address] [place], [address] Total proteinOrdered By: Kostas Celis on 11-11-2024 Protein [Mass/Vol] 6.5 g/dL 5.9-8.4 [facility] White blood cell (WBC) count Ordered By: Zulay Celis on 11-11-2024 WBC (Bld) [#/Vol] 4.2 10*3/uL Low 4.4-11.0 [facility] Absolute lymphocyte countOrd ered By: Inesmat Celis on 10-27-2024 Lymphocytes Auto (Unsp spec) [#/Vol] 0.73 10*3/uL Low 0.83-4.[address] [facility] Absolute neutrophil countOrd ered By: [facility] Vimal on 10-27-2024 Neutrophils (Bld) [#/Vol] 2.1 10*3/uL 2.0-7.[address] [facility] Anion gap in Serum or Plasma Ordered By: [facility] Troymat Celis on 10-27-2024 Anion gap [Moles/Vol] 9 mmol/L 5-15 [facility] Automated lymphocyte count a s percentage of total leukocytesOrdered By: Zulay Celis on 10-27-2024 Lymphocytes/100 WBC Auto (Unsp spec) 19.5 % 19-[address] [facility] BUN/creatinine ratioOrdered By: [facility] 10-27-2024 Urea nitrogen/Creatinine [Mass ratio] 26.5 mg/mg High 10-[address] [facility] Basophil percentageOrdered B y: Zulay Celis on 10-27-2024 Basophils/100 WBC (Bld) 1.1 % High 0-1 [facility] Bilirubin, totalOrdered By: Zulay Celis on 10-27-2024 Bilirubin [Mass/Vol] 0.68 mg/dL 0.00-1.30 [facility] Blood manual differential co mment interpretation (narrative result)Ordered By: Zulay Celis on 10-27-2024 Manual differential comment Jaun (Bld) [Interp] SCANNED [facility] CBC W/Diff, Automatedon Anisocytosis Ql (Bld) 2+ Normal [facility] Comment on above: Performed By: #### L 501.5200, L500.4050, L100.0100 ####[facility] [address] [place], [place], [id number] SMEAR COMMENT SCANNED Normal [facility] Comment on above: Performed By: #### L 501.5200, L500.4050, L100.0100 ####[facility] [address] [place], [address] Carbon dioxide, total [Moles /volume] in Central venous bloodOrdered By: Zulay Celis on 10-27-2024 CO2 [Moles/Vol] 25.6 mmol/L 21.0-32.[address] [facility] Chloride assayOrdered By: Nasima Celis on 10-27-2024 Chloride [Moles/Vol] 105 mmol/L 98-108 [facility] Comprehensive Metabolic Prof ilon 10-27-2024 Albumin [Mass/Vol] 4.2 g/dL Normal 3.4-4.8 [facility] Comment on above: Performed By: #### L 501.5200, L500.4050, L100.0100 ####[facility] [address] [place], [address] Albumin/Globulin [Mass ratio] 1.8 {ratio} Normal 0.9-2.[address] [facility] Comment on above: Performed By: #### L 501.5200, L500.4050, L100.0100 ####[facility] [address] [place], [address] ALK PHOS 91 U/L Normal 40-[address] [facility] Comment on above: Performed By: #### L 501.5200, L500.4050, L100.0100 ####[facility] [address] [place], [address] ALT [Catalytic activity/Vol] 25 U/L Normal <=[address] [facility] Comment on above: Performed By: #### L 501.5200, L500.4050, L100.0100 ####[facility] [address] [place], [address] AST [Catalytic activity/Vol] 33 U/L Normal <=[address] [facility] Comment on above: Performed By: #### L 501.5200, L500.4050, L100.0100 ####[facility] [address] [place], [address] Bilirubin [Mass/Vol] 0.68 mg/dL Normal 0.00-1.30 [facility] Comment on above: Performed By: #### L 501.5200, L500.4050, L100.0100 ####[facility] [address] [place], [address] BUN/CRE 26.5 RATIO High 10-[address] [facility] Comment on above: Performed By: #### L 501.5200, L500.4050, L100.0100 ####[facility] [address] [place], [address] Calcium [Mass/Vol] 9.3 mg/dL Normal 7.6-11.0 [facility] Comment on above: Performed By: #### L 501.5200, L500.4050, L100.0100 ####[facility] [address] [place], [address] Chloride [Moles/Vol] 105 mmol/L Normal 98-108 [facility] Comment on above: Performed By: #### L 501.5200, L500.4050, L100.0100 ####[facility] [address] [place], [address] CO2 [Moles/Vol] 25.6 mmol/L Normal 21.0-32.[address] [facility] Comment on above: Performed By: #### L 501.5200, L500.4050, L100.0100 ####[facility] [address] [place], [address] Creatinine [Mass/Vol] 0.60 mg/dL Low 0.70-1.20 [facility] Comment on above: Performed By: #### L 501.5200, L500.4050, L100.0100 ####[facility] [address] [place], [address] ECRCL 66.16 ml/min Normal 50-[address] [facility] Comment on above: Performed By: #### L 501.5200, L500.4050, L100.0100 ####[facility] [address] [place], [address] GAP 9 Normal 5-[address] [facility] Comment on above: Performed By: #### L 501.5200, L500.4050, L100.0100 ####[facility] [address] [place], [address] GFR/1.73 sq M.predicted among non-blacks MDRD (S/P/Bld) [Vol rate/Area] 101 mL/min/{1.73_m2} Normal >[address] [facility] Comment on above: Result Comment: mL/m in/1.73m2 CKD-EPI Creatinine Equation (2020) Performed By: #### L 501.5200, L500.4050, L100.0100 ####[facility] [address] [place], [address] Globulin (S) [Mass/Vol] 2.3 g/dL Normal 2.2-4.2 [facility] Comment on above: Performed By: #### L 501.5200, L500.4050, L100.0100 ####[facility] [address] [place], [address] Glucose [Mass/Vol] 129 mg/dL High 70-99 [facility] Comment on above: Performed By: #### L 501.5200, L500.4050, L100.0100 ####[facility] [address] [place], [address] Potassium [Moles/Vol] 4.1 mmol/L Normal 3.3-5.1 [facility] Comment on above: Performed By: #### L 501.5200, L500.4050, L100.0100 ####[facility] [address] [place], [address] Sodium [Moles/Vol] 140 mmol/L Normal 133-145 [facility] Comment on above: Performed By: #### L 501.5200, L500.4050, L100.0100 ####[facility] [address] [place], [address] T PROT 6.5 g/dL Normal 5.9-8.[address] [facility] Comment on above: Performed By: #### L 501.5200, L500.4050, L100.0100 ####[facility] [address] [place], [address] Urea nitrogen [Mass/Vol] 16 mg/dL Normal 4-[address] [facility] Comment on above: Performed By: #### L 501.5200, L500.4050, L100.0100 ####[facility] [address] [place], [address] Eosinophil percentageOrdered By: Zulay Celis on 10-27-2024 Eosinophils/100 WBC (Bld) 4.5 % 0-[address] [facility] Erythrocyte distribution wid th ratioOrdered By: Zulay Celis on 10-27-2024 Erythrocyte distribution width (RBC) [Ratio] 18.7 % High 11.6-14.[address] [facility] Erythrocyte distribution wid th standard deviationOrdered By: [facility] Troymat Celis on 10-27-2024 Erythrocyte distribution width (RBC) [Ratio] 69.0 fl High 35.1-43.[address] [facility] Glomerular filtration rate ( GFR) estimation/1.73 sq m using serum, plasma, or whole bOrdered By: Zulay Celis on 10-27-2024 GFR/1.73 sq M.predicted among non-blacks MDRD (S/P/Bld) [Vol rate/Area] 101 mL/min/{1.73_m2} >[address] [facility] Comment on above: mL/min/1.73m2 CKD-EP I Creatinine Equation (2020) Hematocrit Auto (Bld) [Volum e fraction]Ordered By: Zulay Celis on 10-27-2024 Hematocrit (Bld) [Volume fraction] 30.2 % Low 40-[address] [facility] Hemoglobin measurementOrdere d By: Zulay Celis on 10-27-2024 Hemoglobin (Bld) [Mass/Vol] 9.8 g/dL Low 13.0-16.[address] [facility] Immature granulocytes/100 WB C Auto (Bld)Ordered By: Zulay Celis on 10-27-2024 Immature granulocytes/100 WBC (Bld) 0.500 % 0.0-0.[address] [facility] Comment on above: IG% - Immature Granu locytes (promyelocytes, myelocytes and metamyelocytes) > 1% indicates that a LEFT SHIFT is Present. Laboratory - Chemistry and C hemistry - challengeOrdered By: Zulay Celis on 10-27-2024 AST [Catalytic activity/Vol] 33 U/L <[address] [facility] Laboratory - Hematology and Cell countsOrdered By: Zulay Celis on 10-27-2024 Anisocytosis Ql (Bld) 2+ [facility] MCV (mean corpuscular volume ) determinationOrdered By: Zulay Celis on 10-27-2024 MCV (RBC) [Entitic vol] 102.4 fL High 80-94 [facility] Magnesiumon 10-27-2024 Magnesium [Mass/Vol] 2.2 mg/dL Normal 1.5-2.2 [facility] Comment on above: Performed By: #### L 501.5200, L500.4050, L100.0100 ####[facility] [address] [place], [address] Magnesium measurement (mass/ volume)Ordered By: Zulay Celis on 10-27-2024 Magnesium (Unsp spec) [Mass/Vol] 2.2 mg/dL 1.5-2.[address] [facility] Mean corpuscular hemoglobin (MCH) determinationOrdered By: [facility] Troymat Celis on 10-27-2024 MCH (RBC) [Entitic mass] 33.2 pg High 27.0-32.[address] [facility] Mean corpuscular hemoglobin concentration (MCHC) determinationOrdered By: Zulay Celis on 10-27-2024 MCHC (RBC) [Mass/Vol] 32.5 g/dL 32-36 [facility] Mean platelet volume determi nationOrdered By: Zulay Celis on 10-27-2024 Platelet mean volume (Bld) [Entitic vol] 8.7 fL 6.2-12.[address] [facility] Monocyte percentageOrdered B y: uZlay Celis on 10-27-2024 Monocytes/100 WBC (Bld) 17.6 % High 0-10 [facility] Neutrophil percentageOrdered By: Zulay Celis on 10-27-2024 Neutrophils/100 WBC (Bld) 56.8 % 47-[address] [facility] Nucleated red blood cell per centageOrdered By: Zulay Celis on 10-27-2024 Nucleated RBC/100 WBC (Bld) [Ratio] 0 % 0-[address] [facility] Oncology Visit Reporton Oncology Visit Report Normal [facility] Phosphoruson 10-27-2024 Phosphate [Mass/Vol] 3.5 mg/dL Normal 2.7-4.5 [facility] Comment on above: Performed By: #### L 501.2300 ####[facility] [address] [place], [address] Platelet countOrdered By: Nasima Celis on 10-27-2024 Platelets (Bld) [#/Vol] 181 10*3/uL 150-[address] [facility] Potassium measurement (mass/ volume)Ordered By: Zulay Celis on 10-27-2024 Potassium (Unsp spec) [Mass/Vol] 4.1 mmol/L 3.3-5.[address] [facility] RBC Auto (Bld) [#/Vol]Ordere d By: Zulay Celis on 10-27-2024 RBC (Bld) [#/Vol] 2.95 10*6/uL Low 4.6-6.2 [facility] Serum creatinine measurement (mass/volume)Ordered By: Zulay Celis on 10-27-2024 Creatinine [Mass/Vol] 0.60 mg/dL Low 0.70-1.20 [facility] Serum globulin measurementOr dered By: Zulay Celis on 10-27-2024 Globulin (S) [Mass/Vol] 2.3 g/dL 2.2-4.2 [facility] Serum glucose measurement (m ass/volume)Ordered By: Zulay Celis on 10-27-2024 Glucose [Mass/Vol] 129 mg/dL High 70-99 [facility] Serum or plasma alanine lucia otransferase (ALT) measurementOrdered By: Zulay Celis on 10-27-2024 ALT [Catalytic activity/Vol] 25 U/L <[address] [facility] Serum or plasma albumin darian urement (mass/volume)Ordered By: Zulay Celis on 10-27-2024 Albumin [Mass/Vol] 4.2 g/dL 3.4-4.8 [facility] Serum or plasma albumin/glob ulin mass ratioOrdered By: Zulay Celis on 10-27-2024 Albumin/Globulin [Mass ratio] 1.8 {ratio} 0.9-2.[address] [facility] Serum or plasma alkaline trudi sphatase measurementOrdered By: Zulay Celis on 10-27-2024 ALP [Catalytic activity/Vol] 91 U/L 40-[address] [facility] Serum or plasma calcium darian urement (mass/volume)Ordered By: Zulay Celis on 10-27-2024 Calcium [Mass/Vol] 9.3 mg/dL 7.6-11.0 [facility] Serum or plasma urea nitroge n measurement (mass/volume)Ordered By: Zulay Celis on 10-27-2024 Urea nitrogen [Mass/Vol] 16 mg/dL 4-[address] [facility] Sodium levelOrdered By: Ines Celis on 10-27-2024 Sodium [Moles/Vol] 140 mmol/L 133-145 [facility] Total proteinOrdered By: Kostas Celis on 10-27-2024 Protein [Mass/Vol] 6.5 g/dL 5.9-8.4 [facility] White blood cell (WBC) count Ordered By: Zulay Celis on 06-03-2025 WBC (Bld) [#/Vol] 3.8 10*3/uL Low 4.4-11.[address] [facility] [address] Chest, Abd, Pel w/Contras ton 10-21-2024 CT Chest, Abd, Pel w/Contrast Normal [facility] Absolute lymphocyte countOrd ered By: [facility] Troymat Celis on 10-13-2024 Lymphocytes Auto (Unsp spec) [#/Vol] 0.90 10*3/uL 0.83-4.[address] [facility] Absolute neutrophil countOrd ered By: [facility] Troymat Celis on 10-13-2024 Neutrophils (Bld) [#/Vol] 6.2 10*3/uL 2.0-7.[address] [facility] Anion gap in Serum or Plasma Ordered By: [facility] Troymat Celis on 10-13-2024 Anion gap [Moles/Vol] 10 mmol/L 5- [facility] Automated lymphocyte count a s percentage of total leukocytesOrdered By: [facility] Vimal on 10-13-2024 Lymphocytes/100 WBC Auto (Unsp spec) 10.4 % Low 19-[address] [facility] BUN/creatinine ratioOrdered By: [facility] Vimal on 10-13-2024 Urea nitrogen/Creatinine [Mass ratio] 28.1 mg/mg High 10- [facility] Basophil percentageOrdered B y: Zulay Celis on 10-13-2024 Basophils/100 WBC (Bld) 0.7 % 0-1 [facility] Bilirubin, totalOrdered By: [facility] Vimal on 10-13-2024 Bilirubin [Mass/Vol] 0.66 mg/dL 0.00-1.30 [facility] CBC W/Diff, Automatedon 09-25 Anisocytosis Ql (Bld) 1+ Normal [facility] Comment on above: Performed By: #### L 100.0100, L500.4050, L501.5200 ####[facility] [address] [place], [address] Carbon dioxide, total [Moles /volume] in Central venous bloodOrdered By: [facility] Troymat Celis on 10-13-2024 CO2 [Moles/Vol] 24.1 mmol/L 21.0-32.[address] [facility] Chloride assayOrdered By: Nasima Celis on 10-13-2024 Chloride [Moles/Vol] 105 mmol/L 98-108 [facility] Comprehensive Metabolic Prof ilon 10-13-2024 Albumin [Mass/Vol] 4.0 g/dL Normal 3.4-4.8 [facility] Comment on above: Performed By: #### L 100.0100, L500.4050, L501.5200 ####[facility] [address] [place], [address] Albumin/Globulin [Mass ratio] 1.5 {ratio} Normal 0.9-2.[address] [facility] Comment on above: Performed By: #### L 100.0100, L500.4050, L501.5200 ####[facility] [address] [place], [address] ALK PHOS 114 U/L Normal 40-[address] [facility] Comment on above: Performed By: #### L 100.0100, L500.4050, L501.5200 ####[facility] [address] [place], [address] ALT [Catalytic activity/Vol] 23 U/L Normal <=[address] [facility] Comment on above: Performed By: #### L 100.0100, L500.4050, L501.5200 ####[facility] [address] [place], [address] AST [Catalytic activity/Vol] 35 U/L Normal <=[address] [facility] Comment on above: Performed By: #### L 100.0100, L500.4050, L501.5200 ####[facility] [address] [place], [address] Bilirubin [Mass/Vol] 0.66 mg/dL Normal 0.00-1.30 [facility] Comment on above: Performed By: #### L 100.0100, L500.4050, L501.5200 ####[facility] [address] [place], [address] BUN/CRE 28.1 RATIO High 10-[address] [facility] Comment on above: Performed By: #### L 100.0100, L500.4050, L501.5200 ####[facility] [address] [place], [address] Calcium [Mass/Vol] 9.3 mg/dL Normal 7.6-11.0 [facility] Comment on above: Performed By: #### L 100.0100, L500.4050, L501.5200 ####[facility] [address] [place], [address] Chloride [Moles/Vol] 105 mmol/L Normal 98-108 [facility] Comment on above: Performed By: #### L 100.0100, L500.4050, L501.5200 ####[facility] [address] [place], [address] CO2 [Moles/Vol] 24.1 mmol/L Normal 21.0-32.[address] [facility] Comment on above: Performed By: #### L 100.0100, L500.4050, L501.5200 ####[facility] [address] [place], [address] Creatinine [Mass/Vol] 0.64 mg/dL Low 0.70-1.20 [facility] Comment on above: Performed By: #### L 100.0100, L500.4050, L501.5200 ####[facility] [address] [place], [address] ECRCL 67.05 ml/min Normal 50-[address] [facility] Comment on above: Performed By: #### L 100.0100, L500.4050, L501.5200 ####[facility] [address] [place], [address] GAP 10 Normal 5-[address] [facility] Comment on above: Performed By: #### L 100.0100, L500.4050, L501.5200 ####[facility] [address] [place], [address] GFR/1.73 sq M.predicted among non-blacks MDRD (S/P/Bld) [Vol rate/Area] 99 mL/min/{1.73_m2} Normal >[address] [facility] Comment on above: Result Comment: mL/m in/1.73m2 CKD-EPI Creatinine Equation (2020) Performed By: #### L 100.0100, L500.4050, L501.5200 ####[facility] [address] [place], [address] Globulin (S) [Mass/Vol] 2.8 g/dL Normal 2.2-4.2 [facility] Comment on above: Performed By: #### L 100.0100, L500.4050, L501.5200 ####[facility] [address] [place], [address] Glucose [Mass/Vol] 125 mg/dL High 70-99 [facility] Comment on above: Performed By: #### L 100.0100, L500.4050, L501.5200 ####[facility] [address] [place], [address] Potassium [Moles/Vol] 4.2 mmol/L Normal 3.3-5.1 [facility] Comment on above: Performed By: #### L 100.0100, L500.4050, L501.5200 ####[facility] [address] [place], [address] Sodium [Moles/Vol] 139 mmol/L Normal 133-145 [facility] Comment on above: Performed By: #### L 100.0100, L500.4050, L501.5200 ####[facility] [address] [place], [address] T PROT 6.8 g/dL Normal 5.9-8.[address] [facility] Comment on above: Performed By: #### L 100.0100, L500.4050, L501.5200 ####[facility] [address] [place], [address] Urea nitrogen [Mass/Vol] 18 mg/dL Normal 4-[address] [facility] Comment on above: Performed By: #### L 100.0100, L500.4050, L501.5200 ####[facility] [address] [place], [address] Eosinophil percentageOrdered By: Zulay Celis on 10-13-2024 Eosinophils/100 WBC (Bld) 2.5 % 0-[address] [facility] Erythrocyte distribution wid th ratioOrdered By: [facility] Troymat Celis on 10-13-2024 Erythrocyte distribution width (RBC) [Ratio] 18.3 % High 11.6-14.[address] [facility] Erythrocyte distribution wid th standard deviationOrdered By: Zulay Celis on 10-13-2024 Erythrocyte distribution width (RBC) [Ratio] 66.9 fl High 35.1-43.[address] [facility] Glomerular filtration rate ( GFR) estimation/1.73 sq m using serum, plasma, or whole bOrdered By: Zulay Celis on 10-13-2024 GFR/1.73 sq M.predicted among non-blacks MDRD (S/P/Bld) [Vol rate/Area] 99 mL/min/{1.73_m2} >[address] [facility] Comment on above: mL/min/1.73m2 CKD-EP I Creatinine Equation (2020) Hematocrit Auto (Bld) [Volum e fraction]Ordered By: Zulay Celis on 10-13-2024 Hematocrit (Bld) [Volume fraction] 30.7 % Low 40-[address] [facility] Hemoglobin measurementOrdere d By: Zluay Celis on 10-13-2024 Hemoglobin (Bld) [Mass/Vol] 10.3 g/dL Low 13.0-16.[address] [facility] Immature granulocytes/100 WB C Auto (Bld)Ordered By: Zulay Celis on 10-13-2024 Immature granulocytes/100 WBC (Bld) 0.700 % 0.0-0.[address] [facility] Comment on above: IG% - Immature Granu locytes (promyelocytes, myelocytes and metamyelocytes) > 1% indicates that a LEFT SHIFT is Present. L509.6001on 10-13-2024 CORTISOL 14.90 ug/dL Normal 6.02-18.[address] [facility] Comment on above: Performed By: #### L 509.6001, L501.9520, L501.2300, L506.0400 ####[facility] [address] [place], [address] Laboratory - Chemistry and C hemistry - challengeOrdered By: Zulay Celis on 10-13-2024 AST [Catalytic activity/Vol] 35 U/L <[address] [facility] Laboratory - Hematology and Cell countsOrdered By: [facility] Troymat Celis on 10-13-2024 Anisocytosis Ql (Bld) 1+ [facility] MCV (mean corpuscular volume ) determinationOrdered By: Zulay Celis on 10-13-2024 MCV (RBC) [Entitic vol] 100.7 fL High 80-94 [facility] Magnesiumon 10-13-2024 Magnesium [Mass/Vol] 2.3 mg/dL High 1.5-2.2 [facility] Comment on above: Performed By: #### L 100.0100, L500.4050, L501.5200 ####[facility] [address] [place], [address] Magnesium measurement (mass/ volume)Ordered By: Zulay Celis on 10-13-2024 Magnesium (Unsp spec) [Mass/Vol] 2.3 mg/dL High 1.5-2.[address] [facility] Mean corpuscular hemoglobin (MCH) determinationOrdered By: Zulay Celis on 10-13-2024 MCH (RBC) [Entitic mass] 33.8 pg High 27.0-32.[address] [facility] Mean corpuscular hemoglobin concentration (MCHC) determinationOrdered By: Zulay Celis on 10-13-2024 MCHC (RBC) [Mass/Vol] 33.6 g/dL 32-36 [facility] Mean platelet volume determi nationOrdered By: Zulay Celis on 10-13-2024 Platelet mean volume (Bld) [Entitic vol] 8.2 fL 6.2-12.[address] [facility] Monocyte percentageOrdered B y: Zulay Celis on 10-13-2024 Monocytes/100 WBC (Bld) 13.9 % High 0-10 [facility] Neutrophil percentageOrdered By: Zulay Celis on 10-13-2024 Neutrophils/100 WBC (Bld) 71.8 % High 47-[address] [facility] Nucleated red blood cell per centageOrdered By: [facility] Troymat Celis on 10-13-2024 Nucleated RBC/100 WBC (Bld) [Ratio] 0 % 0-[address] [facility] Oncology Visit Reporton -2 0 Oncology Visit Report Normal [facility] Phosphoruson 10-13-2024 Phosphate [Mass/Vol] 3.4 mg/dL Normal 2.7-4.5 [facility] Comment on above: Performed By: #### L 509.6001, L501.9520, L501.2300, L506.0400 ####[facility] [address] [place], [address] Platelet countOrdered By: Nasima Celis on 10-13-2024 Platelets (Bld) [#/Vol] 199 10*3/uL 150-[address] [facility] Potassium measurement (mass/ volume)Ordered By: Zulay Celis on 10-13-2024 Potassium (Unsp spec) [Mass/Vol] 4.2 mmol/L 3.3-5.[address] [facility] RBC Auto (Bld) [#/Vol]Ordere d By: Zulay Celis on 10-13-2024 RBC (Bld) [#/Vol] 3.05 10*6/uL Low 4.6-6.2 [facility] Serum creatinine measurement (mass/volume)Ordered By: Zulay Celis on 10-13-2024 Creatinine [Mass/Vol] 0.64 mg/dL Low 0.70-1.20 [facility] Serum globulin measurementOr dered By: Zulay Celis on 10-13-2024 Globulin (S) [Mass/Vol] 2.8 g/dL 2.2-4.2 [facility] Serum glucose measurement (m ass/volume)Ordered By: Zulay Celis on 10-13-2024 Glucose [Mass/Vol] 125 mg/dL High 70-99 [facility] Serum or plasma alanine lucia otransferase (ALT) measurementOrdered By: Zulay Celis on 10-13-2024 ALT [Catalytic activity/Vol] 23 U/L <[address] [facility] Serum or plasma albumin darian urement (mass/volume)Ordered By: Zulay Celis on 10-13-2024 Albumin [Mass/Vol] 4.0 g/dL 3.4-4.8 [facility] Serum or plasma albumin/glob ulin mass ratioOrdered By: Zulay Celis on 10-13-2024 Albumin/Globulin [Mass ratio] 1.5 {ratio} 0.9-2.[address] [facility] Serum or plasma alkaline trudi sphatase measurementOrdered By: Zulay Celis on 10-13-2024 ALP [Catalytic activity/Vol] 114 U/L 40-[address] [facility] Serum or plasma calcium darian urement (mass/volume)Ordered By: Zulay Celis on 10-13-2024 Calcium [Mass/Vol] 9.3 mg/dL 7.6-11.0 [facility] Serum or plasma cortisol sandra surement (mass/volume)Ordered By: Zulay Celis on 10-13-2024 Cortisol [Mass/Vol] 14.90 ug/dL 6.02-18.40 [facility] Serum or plasma urea nitroge n measurement (mass/volume)Ordered By: Zulay Celis on 10-13-2024 Urea nitrogen [Mass/Vol] 18 mg/dL 4-[address] [facility] Sodium levelOrdered By: Ines rivero Vimal on 10-13-2024 Sodium [Moles/Vol] 139 mmol/L 133-145 [facility] T4 Free Directon 10-13-2024 T4 FREE DIRECT 1.20 ng/dL Normal 0.76-1.[address] [facility] Comment on above: Performed By: #### L 509.6001, L501.9520, L501.2300, L506.0400 ####[facility] [address] [place], [place], [id number] T4 freeOrdered By: Zulay quezada on 10-13-2024 Free T4 [Mass/Vol] 1.20 ng/dL 0.76-1.46 [facility] TSH DL <= 0.005 mIU/L QnOrde red By: Inesmat Celis on 10-13-2024 TSH Qn 3.190 uIU/mL 0.300-4.[address] [facility] Thyroid Stim Hormone (TSH)on 10-13-2024 TSH 3.190 uIU/mL Normal 0.300-4.[address] [facility] Comment on above: Performed By: #### L 509.6001, L501.9520, L501.2300, L506.0400 ####[facility] [address] [place], [place], [id number] Total proteinOrdered By: Kostas ahn Vimal on 10-13-2024 Protein [Mass/Vol] 6.8 g/dL 5.9-8.4 [facility] White blood cell (WBC) count Ordered By: Inesmat Celis on 10-13-2024 WBC (Bld) [#/Vol] 8.7 10*3/uL 4.4-11.0 [facility] CBC W/Diff, Automatedon Anisocytosis Ql (Bld) 1+ Normal [facility] Comment on above: Performed By: #### L 500.4050, L501.5200, L100.0100 ####[facility] [address] [place], [address] Comprehensive Metabolic Prof ilon 09-29-2024 Albumin [Mass/Vol] 4.0 g/dL Normal 3.4-4.8 [facility] Comment on above: Performed By: #### L 500.4050, L501.5200, L100.0100 ####[facility] [facility] [address] [place], [address] Albumin/Globulin [Mass ratio] 1.8 {ratio} Normal 0.9-2.[address] [facility] Comment on above: Performed By: #### L 500.4050, L501.5200, L100.0100 ####[facility] [address] [place], [address] ALK PHOS 71 U/L Normal 40-[address] [facility] Comment on above: Performed By: #### L 500.4050, L501.5200, L100.0100 ####[facility] [address] [place], [address] ALT [Catalytic activity/Vol] 27 U/L Normal <=[address] [facility] Comment on above: Performed By: #### L 500.4050, L501.5200, L100.0100 ####[facility] [address] [place], [address] AST [Catalytic activity/Vol] 28 U/L Normal <=[address] [facility] Comment on above: Performed By: #### L 500.4050, L501.5200, L100.0100 ####[facility] [address] [place], [address] Bilirubin [Mass/Vol] 0.50 mg/dL Normal 0.00-1.30 [facility] Comment on above: Performed By: #### L 500.4050, L501.5200, L100.0100 ####[facility] [address] [place], [address] BUN/CRE 34.7 RATIO High 10-[address] [facility] Comment on above: Performed By: #### L 500.4050, L501.5200, L100.0100 ####[facility] [address] [place], [address] Calcium [Mass/Vol] 9.2 mg/dL Normal 7.6-11.0 [facility] Comment on above: Performed By: #### L 500.4050, L501.5200, L100.0100 ####[facility] [address] [place], [address] Chloride [Moles/Vol] 108 mmol/L Normal 98-108 [facility] Comment on above: Performed By: #### L 500.4050, L501.5200, L100.0100 ####[facility] [address] [place], [address] CO2 [Moles/Vol] 23.4 mmol/L Normal 21.0-32.[address] [facility] Comment on above: Performed By: #### L 500.4050, L501.5200, L100.0100 ####[facility] [address] [place], [address] Creatinine [Mass/Vol] 0.63 mg/dL Low 0.70-1.20 [facility] Comment on above: Performed By: #### L 500.4050, L501.5200, L100.0100 ####[facility] [address] [place], [address] ECRCL 67.05 ml/min Normal 50-[address] [facility] Comment on above: Performed By: #### L 500.4050, L501.5200, L100.0100 ####[facility] [address] [place], [address] GAP 11 Normal 5-[address] [facility] Comment on above: Performed By: #### L 500.4050, L501.5200, L100.0100 ####[facility] [address] [place], [address] GFR/1.73 sq M.predicted among non-blacks MDRD (S/P/Bld) [Vol rate/Area] 99 mL/min/{1.73_m2} Normal >[address] [facility] Comment on above: Result Comment: mL/m in/1.73m2 CKD-EPI Creatinine Equation (2020) Performed By: #### L 500.4050, L501.5200, L100.0100 ####[facility] [address] [place], [address] Globulin (S) [Mass/Vol] 2.2 g/dL Normal 2.2-4.2 [facility] Comment on above: Performed By: #### L 500.4050, L501.5200, L100.0100 ####[facility] [address] [place], [address] Glucose [Mass/Vol] 106 mg/dL High 70-99 [facility] Comment on above: Performed By: #### L 500.4050, L501.5200, L100.0100 ####[facility] [address] [place], [address] Potassium [Moles/Vol] 4.4 mmol/L Normal 3.3-5.1 [facility] Comment on above: Performed By: #### L 500.4050, L501.5200, L100.0100 ####[facility] [address] [place], [address] Sodium [Moles/Vol] 142 mmol/L Normal 133-145 [facility] Comment on above: Performed By: #### L 500.4050, L501.5200, L100.0100 ####[facility] [address] [place], [address] T PROT 6.2 g/dL Normal 5.9-8.[address] [facility] Comment on above: Performed By: #### L 500.4050, L501.5200, L100.0100 ####[facility] [address] [place], [address] Urea nitrogen [Mass/Vol] 22 mg/dL High 4-[address] [facility] Comment on above: Performed By: #### L 500.4050, L501.5200, L100.0100 ####[facility] [address] [place], [address] Magnesiumon 09-29-2024 Magnesium [Mass/Vol] 2.1 mg/dL Normal 1.5-2.2 [facility] Comment on above: Performed By: #### L 500.4050, L501.5200, L100.0100 ####[facility] [address] [place], [address] Oncology Visit Reporton Oncology Visit Report Normal [facility] XR Chest 2 Viewson 1. Negative for acut e cardiopulmonary disease. -------- FINAL REPORT -------- Dictated By: Amrit Tripathi Dictated Date: 09/18/2024 13:44 Assigned Physician: Amrit Tripathi Reviewed and Electronically Signed By: Amrit Tripathi Signed Date: 09/18/2024 13:45 Workstation ID: [id number] Transcribed By: Self Edit Transcribed Date: 09/18/2024 13:44 POWERSCRIBE Amrit Tripathi MD - 09/18/2024 PROCEDURE: XR CHEST 2 VIEWS DATE OF EXAM: 09/18/2024 1:15 PM DEMOGRAPHICS: 74 years old Male INDICATION: pleural effusions Comparison: None FINDINGS: Left chest port in place with its distal tip at the cavoatrial junction. The cardiomediastinal silhouette is within normal limits of size. Negative for pleural effusion or pneumothorax. The lungs are clear. Negative for acute osseous abnormality. IMPRESSION: 1. Negative for acute cardiopulmonary disease. -------- FINAL REPORT -------- Dictated By: Amrit Tripathi Dictated Date: 09/18/2024 13:44 Assigned Physician: Amrit Tripathi Reviewed and Electronically Signed By: Amrit Tripathi Signed Date: 09/18/2024 13:45 Workstation ID: [id number] Transcribed By: Self Edit Transcribed Date: 09/18/2024 13:44 [facility] Radiology Study observation (narrative) [facility] XR Chest 2 ViewsOrdered By: Amrit Tripathi on 09-18-2024 [facility] Work Phone: Blood manual differential co mment interpretation (narrative result)Ordered By: Zulay Celis on 09-15-2024 Manual differential comment Jaun (Bld) [Interp] SCANNED [facility] CBC W/Diff, Automatedon 08-26 Absolute Lymph 0.66 X10 3/uL Low 0.83-4.[address] [facility] Comment on above: Performed By: #### L 100.0100, L501.5200, L500.4050 ####[facility] [address] [place], [address] Absolute Neut 3.1 X10 3/uL Normal 2.0-7.[address] [facility] Comment on above: Performed By: #### L 100.0100, L501.5200, L500.4050 ####[facility] [address] [place], [address] Basophils/100 WBC (Bld) 1.1 % High 0-1 [facility] Comment on above: Performed By: #### L 100.0100, L501.5200, L500.4050 ####[facility] [address] [place], [address] Eosinophils/100 WBC (Bld) 2.7 % Normal 0-[address] [facility] Comment on above: Performed By: #### L 100.0100, L501.5200, L500.4050 ####[facility] [address] [place], [address] Erythrocyte distribution width (RBC) [Ratio] 21.8 % High 11.6-14.[address] [facility] Comment on above: Performed By: #### L 100.0100, L501.5200, L500.4050 ####[facility] [address] [place], [address] Hematocrit (Bld) [Volume fraction] 29.4 % Low 40-[address] [facility] Comment on above: Performed By: #### L 100.0100, L501.5200, L500.4050 ####[facility] [address] [place], [address] Hemoglobin (Bld) [Mass/Vol] 9.8 g/dL Low 13.0-16.[address] [facility] Comment on above: Performed By: #### L 100.0100, L501.5200, L500.4050 ####[facility] [address] [place], [address] IG% 0.500 Normal 0.0-0.[address] [facility] Comment on above: Result Comment: IG% - Immature Granulocytes (promyelocytes, myelocytes andmetamyelocytes) > 1% indicates that a LEFT SHIFT is Present. Performed By: #### L 100.0100, L501.5200, L500.4050 ####[facility] [address] [place], [address] Lymphocytes/100 WBC (Bld) 15.0 % Low 19-[address] [facility] Comment on above: Performed By: #### L 100.0100, L501.5200, L500.4050 ####[facility] [address] [place], [address] MCH (RBC) [Entitic mass] 33.9 pg High 27.0-32.[address] [facility] Comment on above: Performed By: #### L 100.0100, L501.5200, L500.4050 ####[facility] [address] [place], [address] MCHC (RBC) [Mass/Vol] 33.3 g/dL Normal 32-36 [facility] Comment on above: Performed By: #### L 100.0100, L501.5200, L500.4050 ####[facility] [address] [place], [address] MCV (RBC) [Entitic vol] 101.7 fL High 80-94 [facility] Comment on above: Performed By: #### L 100.0100, L501.5200, L500.4050 ####[facility] [address] [place], [address] Monocytes/100 WBC (Bld) 10.2 % High 0-10 [facility] Comment on above: Performed By: #### L 100.0100, L501.5200, L500.4050 ####[facility] [address] [place], [address] Neutrophils/100 WBC (Bld) 70.5 % High 47-[address] [facility] Comment on above: Performed By: #### L 100.0100, L501.5200, L500.4050 ####[facility] [address] [place], [address] Nucleated RBC (Bld) [#/Vol] 0 10*3/uL Normal 0-[address] [facility] Comment on above: Performed By: #### L 100.0100, L501.5200, L500.4050 ####[facility] [address] [place], [address] Platelet mean volume (Bld) [Entitic vol] 8.6 fL Normal 6.2-12.[address] [facility] Comment on above: Performed By: #### L 100.0100, L501.5200, L500.4050 ####[facility] [address] [place], [address] Platelets (Bld) [#/Vol] 226 10*3/uL Normal 150-[address] [facility] Comment on above: Performed By: #### L 100.0100, L501.5200, L500.4050 ####[facility] [address] [place], [address] RBC (Bld) [#/Vol] 2.89 10*6/uL Low 4.6-6.2 [facility] Comment on above: Performed By: #### L 100.0100, L501.5200, L500.4050 ####[facility] [address] [place], [address] RDW SD 80.5 fl High 35.1-43.[address] [facility] Comment on above: Performed By: #### L 100.0100, L501.5200, L500.4050 ####[facility] [address] [place], [address] WBC (Bld) [#/Vol] 4.4 10*3/uL Normal 4.4-11.0 [facility] Comment on above: Performed By: #### L 100.0100, L501.5200, L500.4050 ####[facility] [address] [place], [address] Comprehensive Metabolic Prof ncon 09-15-2024 Albumin [Mass/Vol] 4.2 g/dL Normal 3.4-4.8 [facility] Comment on above: Performed By: #### L 100.0100, L501.5200, L500.4050 ####[facility] [address] [place], [address] Albumin/Globulin [Mass ratio] 2.0 {ratio} Normal 0.9-2.[address] [facility] Comment on above: Performed By: #### L 100.0100, L501.5200, L500.4050 ####[facility] [address] [place], [address] ALK PHOS 79 U/L Normal 40-[address] [facility] Comment on above: Performed By: #### L 100.0100, L501.5200, L500.4050 ####[facility] [address] [place], [address] ALT [Catalytic activity/Vol] 29 U/L Normal <=[address] [facility] Comment on above: Performed By: #### L 100.0100, L501.5200, L500.4050 ####[facility] [address] [place], [address] AST [Catalytic activity/Vol] 28 U/L Normal <=[address] [facility] Comment on above: Performed By: #### L 100.0100, L501.5200, L500.4050 ####[facility] [address] [place], [address] Bilirubin [Mass/Vol] 0.59 mg/dL Normal 0.00-1.30 [facility] Comment on above: Performed By: #### L 100.0100, L501.5200, L500.4050 ####[facility] [address] [place], [address] BUN/CRE 31.6 RATIO High 10-[address] [facility] Comment on above: Performed By: #### L 100.0100, L501.5200, L500.4050 ####[facility] [address] [place], [address] Calcium [Mass/Vol] 9.0 mg/dL Normal 7.6-11.0 [facility] Comment on above: Performed By: #### L 100.0100, L501.5200, L500.4050 ####[facility] [address] [place], [address] Chloride [Moles/Vol] 106 mmol/L Normal 98-108 [facility] Comment on above: Performed By: #### L 100.0100, L501.5200, L500.4050 ####[facility] [address] [place], [address] CO2 [Moles/Vol] 25.5 mmol/L Normal 21.0-32.[address] [facility] Comment on above: Performed By: #### L 100.0100, L501.5200, L500.4050 ####[facility] [address] [place], [address] Creatinine [Mass/Vol] 0.64 mg/dL Low 0.70-1.20 [facility] Comment on above: Performed By: #### L 100.0100, L501.5200, L500.4050 ####[facility] [address] [place], [address] ECRCL 65.17 ml/min Normal 50-[address] [facility] Comment on above: Performed By: #### L 100.0100, L501.5200, L500.4050 ####[facility] [address] [place], [address] GAP 8 Normal 5-[address] [facility] Comment on above: Performed By: #### L 100.0100, L501.5200, L500.4050 ####[facility] [address] [place], [address] GFR/1.73 sq M.predicted among non-blacks MDRD (S/P/Bld) [Vol rate/Area] 99 mL/min/{1.73_m2} Normal >[address] [facility] Comment on above: Result Comment: mL/m in/1.73m2 CKD-EPI Creatinine Equation (2020) Performed By: #### L 100.0100, L501.5200, L500.4050 ####[facility] [address] [place], [address] Globulin (S) [Mass/Vol] 2.1 g/dL Low 2.2-4.2 [facility] Comment on above: Performed By: #### L 100.0100, L501.5200, L500.4050 ####[facility] [address] [place], [address] Glucose [Mass/Vol] 123 mg/dL High 70-99 [facility] Comment on above: Performed By: #### L 100.0100, L501.5200, L500.4050 ####[facility] [address] [place], [address] Potassium [Moles/Vol] 4.3 mmol/L Normal 3.3-5.1 [facility] Comment on above: Performed By: #### L 100.0100, L501.5200, L500.4050 ####[facility] [address] [place], [address] Sodium [Moles/Vol] 140 mmol/L Normal 133-145 [facility] Comment on above: Performed By: #### L 100.0100, L501.5200, L500.4050 ####[facility] [address] [place], [address] T PROT 6.3 g/dL Normal 5.9-8.[address] [facility] Comment on above: Performed By: #### L 100.0100, L501.5200, L500.4050 ####[facility] [address] [place], [address] Urea nitrogen [Mass/Vol] 20 mg/dL High 4-[address] [facility] Comment on above: Performed By: #### L 100.0100, L501.5200, L500.4050 ####[facility] [address] [place], [address] Magnesiumon 09-15-2024 Magnesium [Mass/Vol] 2.4 mg/dL High 1.5-2.2 [facility] Comment on above: Performed By: #### L 100.0100, L501.5200, L500.4050 ####[facility] [address] [place], [address] Oncology Visit Reporton 08-26 Oncology Visit Report Normal [facility] Blood polychromasia detectio n by light microscopyOrdered By: Zulay Celis on 09-01-2024 Polychromasia LM Ql (Bld) RARE [facility] CBC W/Diff, Automatedon Anisocytosis Ql (Bld) 2+ Normal [facility] Comment on above: Performed By: #### L 500.4050, L501.5200, L100.0100 ####[facility] [address] [place], [address] POLYCHROMASIA RARE Normal [facility] Comment on above: Performed By: #### L 500.4050, L501.5200, L100.0100 ####[facility] [address] [place], [address] SMEAR COMMENT SCANNED Normal [facility] Comment on above: Performed By: #### L 500.4050, L501.5200, L100.0100 ####[facility] [address] [place], [address] Comprehensive Metabolic Prof ilon 09-01-2024 Albumin [Mass/Vol] 4.0 g/dL Normal 3.4-4.8 [facility] Comment on above: Performed By: #### L 500.4050, L501.5200, L100.0100 ####[facility] [address] [place], [address] Albumin/Globulin [Mass ratio] 1.9 {ratio} Normal 0.9-2.[address] [facility] Comment on above: Performed By: #### L 500.4050, L501.5200, L100.0100 ####[facility] [address] [place], [address] ALK PHOS 100 U/L Normal 40-[address] [facility] Comment on above: Performed By: #### L 500.4050, L501.5200, L100.0100 ####[facility] [address] [place], [address] ALT [Catalytic activity/Vol] 21 U/L Normal <=[address] [facility] Comment on above: Performed By: #### L 500.4050, L501.5200, L100.0100 ####[facility] [address] [place], [address] AST [Catalytic activity/Vol] 25 U/L Normal <=[address] [facility] Comment on above: Performed By: #### L 500.4050, L501.5200, L100.0100 ####[facility] [address] [place], [address] Bilirubin [Mass/Vol] 0.48 mg/dL Normal 0.00-1.30 [facility] Comment on above: Performed By: #### L 500.4050, L501.5200, L100.0100 ####[facility] [address] [place], [address] BUN/CRE 34.0 RATIO High 10-[address] [facility] Comment on above: Performed By: #### L 500.4050, L501.5200, L100.0100 ####[facility] [address] [place], [address] Calcium [Mass/Vol] 9.0 mg/dL Normal 7.6-11.0 [facility] Comment on above: Performed By: #### L 500.4050, L501.5200, L100.0100 ####[facility] [address] [place], [address] Chloride [Moles/Vol] 105 mmol/L Normal 98-108 [facility] Comment on above: Performed By: #### L 500.4050, L501.5200, L100.0100 ####[facility] [address] [place], [address] CO2 [Moles/Vol] 23.7 mmol/L Normal 21.0-32.[address] [facility] Comment on above: Performed By: #### L 500.4050, L501.5200, L100.0100 ####[facility] [address] [place], [address] Creatinine [Mass/Vol] 0.69 mg/dL Low 0.70-1.20 [facility] Comment on above: Performed By: #### L 500.4050, L501.5200, L100.0100 ####[facility] [address] [place], [address] ECRCL 64.50 ml/min Normal 50-[address] [facility] Comment on above: Performed By: #### L 500.4050, L501.5200, L100.0100 ####[facility] [address] [place], [address] GAP 9 Normal 5-[address] [facility] Comment on above: Performed By: #### L 500.4050, L501.5200, L100.0100 ####[facility] [address] [place], [address] GFR/1.73 sq M.predicted among non-blacks MDRD (S/P/Bld) [Vol rate/Area] 97 mL/min/{1.73_m2} Normal >[address] [facility] Comment on above: Result Comment: mL/m in/1.73m2 CKD-EPI Creatinine Equation (2020) Performed By: #### L 500.4050, L501.5200, L100.0100 ####[facility] [address] [place], [address] Globulin (S) [Mass/Vol] 2.1 g/dL Low 2.2-4.2 [facility] Comment on above: Performed By: #### L 500.4050, L501.5200, L100.0100 ####[facility] [address] [place], [address] Glucose [Mass/Vol] 99 mg/dL Normal 70-99 [facility] Comment on above: Performed By: #### L 500.4050, L501.5200, L100.0100 ####[facility] [address] [place], [address] Potassium [Moles/Vol] 4.5 mmol/L Normal 3.3-5.1 [facility] Comment on above: Performed By: #### L 500.4050, L501.5200, L100.0100 ####[facility] [address] [place], [address] Sodium [Moles/Vol] 138 mmol/L Normal 133-145 [facility] Comment on above: Performed By: #### L 500.4050, L501.5200, L100.0100 ####[facility] [address] [place], [address] T PROT 6.1 g/dL Normal 5.9-8.[address] [facility] Comment on above: Performed By: #### L 500.4050, L501.5200, L100.0100 ####[facility] [address] [place], [address] Urea nitrogen [Mass/Vol] 23 mg/dL High 4-[address] [facility] Comment on above: Performed By: #### L 500.4050, L501.5200, L100.0100 ####[facility] [address] [place], [address] Magnesiumon 09-01-2024 Magnesium [Mass/Vol] 2.4 mg/dL High 1.5-2.2 [facility] Comment on above: Performed By: #### L 500.4050, L501.5200, L100.0100 ####[facility] [address] [place], [address] Oncology Visit Reporton Oncology Visit Report Normal [facility] Basic Metabolic Profile (BMP )on 08-24-2024 BUN/CRE 42.9 RATIO High 10-[address] [facility] Comment on above: Performed By: #### L 500.2500, L100.0100 ####[facility] [address] [place], [address] Calcium [Mass/Vol] 8.7 mg/dL Normal 7.6-11.0 [facility] Comment on above: Performed By: #### L 500.2500, L100.0100 ####[facility] [address] [place], [address] Chloride [Moles/Vol] 101 mmol/L Normal 98-108 [facility] Comment on above: Performed By: #### L 500.2500, L100.0100 ####[facility] [address] [place], [address] CO2 [Moles/Vol] 26.5 mmol/L Normal 21.0-32.[address] [facility] Comment on above: Performed By: #### L 500.2500, L100.0100 ####[facility] [address] [place], [address] Creatinine [Mass/Vol] 0.61 mg/dL Low 0.70-1.20 [facility] Comment on above: Performed By: #### L 500.2500, L100.0100 ####[facility] [facility] [address] [place], [address] ECRCL 63.50 ml/min Normal 50-[address] [facility] Comment on above: Performed By: #### L 500.2500, L100.0100 ####[facility] [address] [place], [address] GAP 8 Normal 5-[address] [facility] Comment on above: Performed By: #### L 500.2500, L100.0100 ####[facility] [address] [place], [address] GFR/1.73 sq M.predicted among non-blacks MDRD (S/P/Bld) [Vol rate/Area] 100 mL/min/{1.73_m2} Normal >[address] [facility] Comment on above: Result Comment: mL/m in/1.73m2 CKD-EPI Creatinine Equation (2020) Performed By: #### L 500.2500, L100.0100 ####[facility] [address] [place], [address] Glucose [Mass/Vol] 88 mg/dL Normal 70-99 [facility] Comment on above: Performed By: #### L 500.2500, L100.0100 ####[facility] [address] [place], [address] Potassium [Moles/Vol] 4.4 mmol/L Normal 3.3-5.1 [facility] Comment on above: Performed By: #### L 500.2500, L100.0100 ####[facility] [address] [place], [address] Sodium [Moles/Vol] 136 mmol/L Normal 133-145 [facility] Comment on above: Performed By: #### L 500.2500, L100.0100 ####[facility] [address] [place], [address] Urea nitrogen [Mass/Vol] 26 mg/dL High 4-[address] [facility] Comment on above: Performed By: #### L 500.2500, L100.0100 ####[facility] [address] [place], [address] CBC W/Diff, Automatedon 03-3 Anisocytosis Ql (Bld) 2+ Normal [facility] Comment on above: Performed By: #### L 500.2500, L100.0100 ####[facility] [address] [place], [address] MACROCYTOSIS 1+ Normal [facility] Comment on above: Performed By: #### L 500.2500, L100.0100 ####[facility] [address] [place], [address] PLT EST A Normal ADEQ [facility] Comment on above: Performed By: #### L 500.2500, L100.0100 ####[facility] [address] [place], [address] ACANTHOCYTE 1+ Normal [facility] Comment on above: Performed By: #### L 500.2500, L100.0100 ####[facility] [address] [place], [address] OVALOCYTE 1+ Normal [facility] Comment on above: Performed By: #### L 500.2500, L100.0100 ####[facility] [address] [place], [address] TEAR DROP 1+ Normal [facility] Comment on above: Performed By: #### L 500.2500, L100.0100 ####[facility] [address] [place], [address] Macrocytes detectionOrdered By: Laurie Vail on 08-24-2024 Macrocytes Ql (Bld) 1+ [facility] Oncology Visit Reporton 07-27 Oncology Visit Report Normal [facility] Ovalocyte detectionOrdered B y: Laurie RaeYared on 08-24-2024 Ovalocytes LM Ql (Bld) 1+ [facility] Platelet estimateOrdered By: Laurie RaeYared on 08-24-2024 Platelets LM Ql (Bld) A ADEQ [facility] Teardrop cell detectionOrder ed By: Laurie Vail on 08-24-2024 Dacrocytes LM Ql (Bld) 1+ [facility] CBC W/Diff, Automatedon 07-26 Anisocytosis Ql (Bld) 1+ Normal [facility] Comment on above: Performed By: #### L 501.5200, L500.4050, L100.0100 ####[facility] [address] [place], [address] SMEAR COMMENT COMMENT Normal [facility] Comment on above: Result Comment: LYMP HOPENIA. Performed By: #### L 501.5200, L500.4050, L100.0100 ####[facility] [address] [place], [address] Comprehensive Metabolic Prof ilon 08-18-2024 Albumin [Mass/Vol] 3.8 g/dL Normal 3.4-4.8 [facility] Comment on above: Performed By: #### L 501.5200, L500.4050, L100.0100 ####[facility] [address] [place], [address] Albumin/Globulin [Mass ratio] 1.7 {ratio} Normal 0.9-2.[address] [facility] Comment on above: Performed By: #### L 501.5200, L500.4050, L100.0100 ####[facility] [address] [place], [address] ALK PHOS 167 U/L High 40-[address] [facility] Comment on above: Performed By: #### L 501.5200, L500.4050, L100.0100 ####[facility] [address] [place], [address] ALT [Catalytic activity/Vol] 17 U/L Normal <=[address] [facility] Comment on above: Performed By: #### L 501.5200, L500.4050, L100.0100 ####[facility] [address] [place], [address] AST [Catalytic activity/Vol] 26 U/L Normal <=[address] [facility] Comment on above: Performed By: #### L 501.5200, L500.4050, L100.0100 ####[facility] [address] [place], [address] Bilirubin [Mass/Vol] 0.58 mg/dL Normal 0.00-1.30 [facility] Comment on above: Performed By: #### L 501.5200, L500.4050, L100.0100 ####[facility] [address] [place], [address] BUN/CRE 35.0 RATIO High 10-[address] [facility] Comment on above: Performed By: #### L 501.5200, L500.4050, L100.0100 ####[facility] [address] [place], [address] Calcium [Mass/Vol] 8.7 mg/dL Normal 7.6-11.0 [facility] Comment on above: Performed By: #### L 501.5200, L500.4050, L100.0100 ####[facility] [address] [place], [address] Chloride [Moles/Vol] 104 mmol/L Normal 98-108 [facility] Comment on above: Performed By: #### L 501.5200, L500.4050, L100.0100 ####[facility] [address] [place], [address] CO2 [Moles/Vol] 24.3 mmol/L Normal 21.0-32.[address] [facility] Comment on above: Performed By: #### L 501.5200, L500.4050, L100.0100 ####[facility] [address] [place], [address] Creatinine [Mass/Vol] 0.68 mg/dL Low 0.70-1.20 [facility] Comment on above: Performed By: #### L 501.5200, L500.4050, L100.0100 ####[facility] [address] [place], [address] ECRCL 63.50 ml/min Normal 50-[address] [facility] Comment on above: Performed By: #### L 501.5200, L500.4050, L100.0100 ####[facility] [address] [place], [address] GAP 8 Normal 5-[address] [facility] Comment on above: Performed By: #### L 501.5200, L500.4050, L100.0100 ####[facility] [address] [place], [address] GFR/1.73 sq M.predicted among non-blacks MDRD (S/P/Bld) [Vol rate/Area] 97 mL/min/{1.73_m2} Normal >[address] [facility] Comment on above: Result Comment: mL/m in/1.73m2 CKD-EPI Creatinine Equation (2020) Performed By: #### L 501.5200, L500.4050, L100.0100 ####[facility] [address] [place], [address] Globulin (S) [Mass/Vol] 2.2 g/dL Normal 2.2-4.2 [facility] Comment on above: Performed By: #### L 501.5200, L500.4050, L100.0100 ####[facility] [address] [place], [address] Glucose [Mass/Vol] 108 mg/dL High 70-99 [facility] Comment on above: Performed By: #### L 501.5200, L500.4050, L100.0100 ####[facility] [address] [place], [address] Potassium [Moles/Vol] 4.2 mmol/L Normal 3.3-5.1 [facility] Comment on above: Performed By: #### L 501.5200, L500.4050, L100.0100 ####[facility] [address] [place], [address] Sodium [Moles/Vol] 136 mmol/L Normal 133-145 [facility] Comment on above: Performed By: #### L 501.5200, L500.4050, L100.0100 ####[facility] [address] [place], [address] T PROT 6.0 g/dL Normal 5.9-8.[address] [facility] Comment on above: Performed By: #### L 501.5200, L500.4050, L100.0100 ####[facility] [address] [place], [address] Urea nitrogen [Mass/Vol] 24 mg/dL High 4-[address] [facility] Comment on above: Performed By: #### L 501.5200, L500.4050, L100.0100 ####[facility] [address] [place], [address] Ferritinon 08-18-2024 Ferritin [Mass/Vol] 664 ng/mL High 37-417 [facility] Comment on above: Performed By: #### L 503.6595 ####[facility] [address] [place], [address] Iron measurement (mass/mass) Ordered By: Laurie Vail on 08-18-2024 Iron (Unsp spec) [Mass/Mass] 116 ug/dL 65-[address] [facility] Iron+Iron Binding Capacityon 08-18-2024 Iron [Mass/Vol] 116 ug/dL Normal 65-[address] [facility] Comment on above: Performed By: #### L 501.2300, L503.6030 ####[facility] [address] [place], [address] IRON SATURATION 43.0 Normal 9-[address] [facility] Comment on above: Performed By: #### L 501.2300, L503.6030 ####[facility] [address] [place], [address] TIBC 267 ug/dL Normal 250-[address] [facility] Comment on above: Performed By: #### L 501.2300, L503.6030 ####[facility] [address] [place], [address] UIBC 151 ug/dL Low 228-[address] [facility] Comment on above: Performed By: #### L 501.2300, L503.6030 ####[facility] [address] [place], [address] Magnesiumon 08-18-2024 Magnesium [Mass/Vol] 2.4 mg/dL High 1.5-2.2 [facility] Comment on above: Performed By: #### L 501.5200, L500.4050, L100.0100 ####[facility] [address] [place], [address] No Panel InformationOrdered By: Laurie Vail on 08-18-2024 Unsaturated Iron Binding Capacity 151 ug/dL Low 228-[address] [facility] Oncology Visit Reporton 07-26 Oncology Visit Report Normal [facility] Phosphoruson 08-18-2024 Phosphate [Mass/Vol] 2.9 mg/dL Normal 2.7-4.5 [facility] Comment on above: Performed By: #### L 501.2300, L503.6030 ####[facility] [address] [place], [address] Serum or plasma ferritin sandra surement (mass/volume)Ordered By: Laurie Vail on 08-18-2024 Ferritin [Mass/Vol] 664 ng/mL High 37-417 [facility] Serum or plasma iron saturat ion measurement (mass fraction)Ordered By: Laurie Vail on 08-18-2024 Iron saturation [Mass fraction] 43.0 % 9-[address] [facility] BRCon 08-11-2024 RC Normal [facility] Comment on above: Result Comment: [id number] ON RC TRANSFUSED 08/12/24 1032 Performed By: #### B TS, [facility] ####[facility] [address] [place], [address] Basic Metabolic Profile (BMP )on 08-11-2024 BUN/CRE 32.1 RATIO High 10-[address] [facility] Comment on above: Performed By: #### L 501.5200, L500.2500, L100.0100, L501.2300 ####[facility] [address] [place], [address] Calcium [Mass/Vol] 8.5 mg/dL Normal 7.6-11.0 [facility] Comment on above: Performed By: #### L 501.5200, L500.2500, L100.0100, L501.2300 ####[facility] [address] [place], [address] Chloride [Moles/Vol] 102 mmol/L Normal 98-108 [facility] Comment on above: Performed By: #### L 501.5200, L500.2500, L100.0100, L501.2300 ####[facility] [address] [place], [address] CO2 [Moles/Vol] 27.6 mmol/L Normal 21.0-32.[address] [facility] Comment on above: Performed By: #### L 501.5200, L500.2500, L100.0100, L501.2300 ####[facility] [address] [place], [address] Creatinine [Mass/Vol] 0.62 mg/dL Low 0.70-1.20 [facility] Comment on above: Performed By: #### L 501.5200, L500.2500, L100.0100, L501.2300 ####[facility] [address] [place], [address] ECRCL 64.18 ml/min Normal 50-[address] [facility] Comment on above: Performed By: #### L 501.5200, L500.2500, L100.0100, L501.2300 ####[facility] [address] [place], [address] GAP 6 Normal 5-[address] [facility] Comment on above: Performed By: #### L 501.5200, L500.2500, L100.0100, L501.2300 ####[facility] [address] [place], [address] GFR/1.73 sq M.predicted among non-blacks MDRD (S/P/Bld) [Vol rate/Area] 99 mL/min/{1.73_m2} Normal >[address] [facility] Comment on above: Result Comment: mL/m in/1.73m2 CKD-EPI Creatinine Equation (2020) Performed By: #### L 501.5200, L500.2500, L100.0100, L501.2300 ####[facility] [address] [place], [address] Glucose [Mass/Vol] 166 mg/dL High 70-99 [facility] Comment on above: Performed By: #### L 501.5200, L500.2500, L100.0100, L501.2300 ####[facility] [address] [place], [address] Potassium [Moles/Vol] 3.8 mmol/L Normal 3.3-5.1 [facility] Comment on above: Performed By: #### L 501.5200, L500.2500, L100.0100, L501.2300 ####[facility] [address] [place], [address] Sodium [Moles/Vol] 136 mmol/L Normal 133-145 [facility] Comment on above: Performed By: #### L 501.5200, L500.2500, L100.0100, L501.2300 ####[facility] [address] [place], [address] Urea nitrogen [Mass/Vol] 20 mg/dL High 4-[address] [facility] Comment on above: Performed By: #### L 501.5200, L500.2500, L100.0100, L501.2300 ####[facility] [address] [place], [address] CBC W/Diff, Automatedon 07-25 Anisocytosis Ql (Bld) 2+ Normal [facility] Comment on above: Performed By: #### L 501.5200, L500.2500, L100.0100, L501.2300 ####[facility] [address] [place], [address] Magnesiumon 08-11-2024 Magnesium [Mass/Vol] 2.2 mg/dL Normal 1.5-2.2 [facility] Comment on above: Performed By: #### L 501.5200, L500.2500, L100.0100, L501.2300 ####[facility] [address] [place], [address] Oncology Visit Reporton 07-25 Oncology Visit Report Normal [facility] Phosphoruson 08-11-2024 Phosphate [Mass/Vol] 2.3 mg/dL Low 2.7-4.5 [facility] Comment on above: Performed By: #### L 501.5200, L500.2500, L100.0100, L501.2300 ####[facility] [address] [place], [address] Type AND Screenon 08-11-2024 Ab SCREEN GEL Negative Normal [facility] Comment on above: Order Comment: N3/19 /25NYA Performed By: #### EDOUARD BELTRAN ####[facility] [address] [place], [address] ABO and Rh group Nom (Bld) Blood group A Rh(D) negative Normal [facility] Comment on above: Order Comment: N3/19 /25NYA Performed By: #### Artis JALLOH [facility] ####[facility] [address] [place], [address] CBC W/Diff, Automatedon 07-25 ACANTHOCYTE 1+ Normal [facility] Comment on above: Performed By: #### L 100.0100, L500.4050, L501.5200 ####[facility] [address] [place], [address] Anisocytosis Ql (Bld) 2+ Normal [facility] Comment on above: Performed By: #### L 100.0100, L500.4050, L501.5200 ####[facility] [address] [place], [address] MACROCYTOSIS 1+ Normal [facility] Comment on above: Performed By: #### L 100.0100, L500.4050, L501.5200 ####[facility] [address] [place], [address] OVALOCYTE 1+ Normal [facility] Comment on above: Performed By: #### L 100.0100, L500.4050, L501.5200 ####[facility] [address] [place], [address] PLT EST A Normal ADEQ [facility] Comment on above: Performed By: #### L 100.0100, L500.4050, L501.5200 ####[facility] [address] [place], [address] TEAR DROP 1+ Normal [facility] Comment on above: Performed By: #### L 100.0100, L500.4050, L501.5200 ####[facility] [address] [place], [address] Comprehensive Metabolic Prof ilon 08-04-2024 Albumin [Mass/Vol] 3.8 g/dL Normal 3.4-4.8 [facility] Comment on above: Performed By: #### L 100.0100, L500.4050, L501.5200 ####[facility] [address] [place], [address] Albumin/Globulin [Mass ratio] 1.7 {ratio} Normal 0.9-2.[address] [facility] Comment on above: Performed By: #### L 100.0100, L500.4050, L501.5200 ####[facility] [address] [place], [address] ALK PHOS 213 U/L High 40-[address] [facility] Comment on above: Performed By: #### L 100.0100, L500.4050, L501.5200 ####[facility] [address] [place], [address] ALT [Catalytic activity/Vol] 31 U/L Normal <=[address] [facility] Comment on above: Performed By: #### L 100.0100, L500.4050, L501.5200 ####[facility] [address] [place], [address] AST [Catalytic activity/Vol] 43 U/L High <=[address] [facility] Comment on above: Performed By: #### L 100.0100, L500.4050, L501.5200 ####[facility] [address] [place], [address] Bilirubin [Mass/Vol] 0.59 mg/dL Normal 0.00-1.30 [facility] Comment on above: Performed By: #### L 100.0100, L500.4050, L501.5200 ####[facility] [address] [place], [address] BUN/CRE 32.7 RATIO High 10-[address] [facility] Comment on above: Performed By: #### L 100.0100, L500.4050, L501.5200 ####[facility] [address] [place], [address] Calcium [Mass/Vol] 8.9 mg/dL Normal 7.6-11.0 [facility] Comment on above: Performed By: #### L 100.0100, L500.4050, L501.5200 ####[facility] [address] [place], [address] Chloride [Moles/Vol] 104 mmol/L Normal 98-108 [facility] Comment on above: Performed By: #### L 100.0100, L500.4050, L501.5200 ####[facility] [address] [place], [address] CO2 [Moles/Vol] 25.0 mmol/L Normal 21.0-32.[address] [facility] Comment on above: Performed By: #### L 100.0100, L500.4050, L501.5200 ####[facility] [address] [place], [address] Creatinine [Mass/Vol] 0.83 mg/dL Normal 0.70-1.20 [facility] Comment on above: Performed By: #### L 100.0100, L500.4050, L501.5200 ####[facility] [address] [place], [address] ECRCL 62.84 ml/min Normal 50-[address] [facility] Comment on above: Performed By: #### L 100.0100, L500.4050, L501.5200 ####[facility] [address] [place], [address] GAP 10 Normal 5-[address] [facility] Comment on above: Performed By: #### L 100.0100, L500.4050, L501.5200 ####[facility] [address] [place], [address] GFR/1.73 sq M.predicted among non-blacks MDRD (S/P/Bld) [Vol rate/Area] 91 mL/min/{1.73_m2} Normal >[address] [facility] Comment on above: Result Comment: mL/m in/1.73m2 CKD-EPI Creatinine Equation (2020) Performed By: #### L 100.0100, L500.4050, L501.5200 ####[facility] [address] [place], [address] Globulin (S) [Mass/Vol] 2.2 g/dL Normal 2.2-4.2 [facility] Comment on above: Performed By: #### L 100.0100, L500.4050, L501.5200 ####[facility] [address] [place], [address] Glucose [Mass/Vol] 168 mg/dL High 70-99 [facility] Comment on above: Performed By: #### L 100.0100, L500.4050, L501.5200 ####[facility] [address] [place], [address] Potassium [Moles/Vol] 3.9 mmol/L Normal 3.3-5.1 [facility] Comment on above: Performed By: #### L 100.0100, L500.4050, L501.5200 ####[facility] [address] [place], [address] Sodium [Moles/Vol] 139 mmol/L Normal 133-145 [facility] Comment on above: Performed By: #### L 100.0100, L500.4050, L501.5200 ####[facility] [address] [place], [address] T PROT 6.0 g/dL Normal 5.9-8.[address] [facility] Comment on above: Performed By: #### L 100.0100, L500.4050, L501.5200 ####[facility] [address] [place], [address] Urea nitrogen [Mass/Vol] 27 mg/dL High 4-[address] [facility] Comment on above: Performed By: #### L 100.0100, L500.4050, L501.5200 ####[facility] [address] [place], [address] Magnesiumon 08-04-2024 Magnesium [Mass/Vol] 2.4 mg/dL High 1.5-2.2 [facility] Comment on above: Performed By: #### L 100.0100, L500.4050, L501.5200 ####[facility] [address] [place], [address] Oncology Visit Reporton 07-25 Oncology Visit Report Normal [facility] CXR for Line Placementon CXR for Line Placement Normal [facility] Discharge Instructionon Discharge Instruction Normal [facility] MR/POSTOP.ANEon 07-30-2024 MR/POSTOP.ANE Normal [facility] MR/[id number] 07-30-2024 MR/POSTOPAN2 Normal [facility] Operative Reporton Operative Report Normal [facility] MR/PAT.ANEon 07-28-2024 MR/PAT.ANE Normal [facility] Surgery Visit Reporton 07-28 [address] Report [address] [facility] Oncology Visit Reporton Oncology Visit Report Normal [facility] Absolute neutrophil countOrd ered By: Zulay Celis on 07-20-2024 Neutrophils (Bld) [#/Vol] 10.4 10*3/uL High 2.0-7.[address] [facility] Albumin to globulin ratioOrd ered By: Zulay Celis on 07-20-2024 Albumin/Globulin [Mass ratio] 1.2 {ratio} 0.9-2.[address] [facility] [facility] Basophil percentageOrdered B y: Zulay Celis on 07-20-2024 Basophils/100 WBC (Bld) 0.6 % 0-1 [facility] Bilirubin, totalOrdered By: Zulay Celis on 07-20-2024 Bilirubin [Mass/Vol] 0.90 mg/dL 0.20-1.00 [facility] Comment on above: For patients on eltr ombopag therapy, use of Dimension Swink TBIL is not recommended. Blood schistocyte detection by light microscopyOrdered By: Zulay Celis on 07-20-2024 Schistocytes LM Ql (Bld) 1+ [facility] Blood urea nitrogen (BUN)/cr eatinine ratioOrdered By: Zulay Celis on 07-20-2024 Urea nitrogen/Creatinine [Mass ratio] 21.6 mg/mg High 10-[address] [facility] CBC W/Diff, Automatedon 06-28 Anisocytosis Ql (Bld) 2+ Normal [facility] Comment on above: Performed By: #### L 500.4050, L100.9950, L100.0100, L503.6550, L506.0250, L503.0105, L503.6030 ####[facility] [address] [place], [place], [id number] HYPOCHROMASIA 1+ Normal [facility] Comment on above: Performed By: #### L 500.4050, L100.9950, L100.0100, L503.6550, L506.0250, L503.0105, L503.6030 ####[facility] [address] [place], [place], [id number] SCHISTOCYTES 1+ Normal [facility] Comment on above: Performed By: #### L 500.4050, L100.9950, L100.0100, L503.6550, L506.0250, L503.0105, L503.6030 ####[facility] [address] [place], [place], [id number] Carbon dioxide measurementOr dered By: Zulay Celis on 07-20-2024 CO2 [Moles/Vol] 27.0 mmol/L 21.0-32.[address] [facility] Chloride measurementOrdered By: Zulay Celis on 07-20-2024 Chloride [Moles/Vol] 104 mmol/L 98-107 [facility] Comprehensive Metabolic Prof ilon 07-20-2024 Albumin [Mass/Vol] 3.6 g/dL Normal 3.2-5.0 [facility] Comment on above: Performed By: #### L 500.4050, L100.9950, L100.0100, L503.6550, L506.0250, L503.0105, L503.6030 ####[facility] [address] [place], [place], [id number] Albumin/Globulin [Mass ratio] 1.2 {ratio} Normal 0.9-2.[address] [facility] Comment on above: Performed By: #### L 500.4050, L100.9950, L100.0100, L503.6550, L506.0250, L503.0105, L503.6030 ####[facility] [address] [place], [address] ALK P 216 U/L High 45-[address] [facility] Comment on above: Performed By: #### L 500.4050, L100.9950, L100.0100, L503.6550, L506.0250, L503.0105, L503.6030 ####[facility] [address] [place], [address] ALT [Catalytic activity/Vol] 26 U/L Normal 16-[address] [facility] Comment on above: Performed By: #### L 500.4050, L100.9950, L100.0100, L503.6550, L506.0250, L503.0105, L503.6030 ####[facility] [address] [place], [address] AST [Catalytic activity/Vol] 24 U/L Normal 15-[address] [facility] Comment on above: Performed By: #### L 500.4050, L100.9950, L100.0100, L503.6550, L506.0250, L503.0105, L503.6030 ####[facility] [address] [place], [address] Bilirubin [Mass/Vol] 0.90 mg/dL Normal 0.20-1.00 [facility] Comment on above: Result Comment: For patients on eltrombopag therapy, use of Dimension Swink TBIL is not recommended. Performed By: #### L 500.4050, L100.9950, L100.0100, L503.6550, L506.0250, L503.0105, L503.6030 ####[facility] [address] [place], [address] BUN/CRE 21.6 RATIO High 10-[address] [facility] Comment on above: Performed By: #### L 500.4050, L100.9950, L100.0100, L503.6550, L506.0250, L503.0105, L503.6030 ####[facility] [address] [place], [address] CA,Total 8.6 mg/dL Normal 8.5-10.[address] [facility] Comment on above: Performed By: #### L 500.4050, L100.9950, L100.0100, L503.6550, L506.0250, L503.0105, L503.6030 ####[facility] [address] [place], [address] Chloride [Moles/Vol] 104 mmol/L Normal 98-107 [facility] Comment on above: Performed By: #### L 500.4050, L100.9950, L100.0100, L503.6550, L506.0250, L503.0105, L503.6030 ####[facility] [address] [place], [address] CO2 [Moles/Vol] 27.0 mmol/L Normal 21.0-32.[address] [facility] Comment on above: Performed By: #### L 500.4050, L100.9950, L100.0100, L503.6550, L506.0250, L503.0105, L503.6030 ####[facility] [address] [place], [address] Creatinine [Mass/Vol] 0.79 mg/dL Normal 0.70-1.30 [facility] Comment on above: Result Comment: The validity of the calculated GFR GFRAA in patients over70 years has not been determined. Clinical correlation isessential. Performed By: #### L 500.4050, L100.9950, L100.0100, L503.6550, L506.0250, L503.0105, L503.6030 ####[facility] [address] [place], [address] EST GFR - AA 124 mL/min Normal >[address] [facility] Comment on above: Result Comment: Afri can Libyan GFR Calc Performed By: #### L 500.4050, L100.9950, L100.0100, L503.6550, L506.0250, L503.0105, L503.6030 ####[facility] [address] [place], [address] GAP 8 Normal 5-[address] [facility] Comment on above: Performed By: #### L 500.4050, L100.9950, L100.0100, L503.6550, L506.0250, L503.0105, L503.6030 ####[facility] [address] [place], [address] GFR/1.73 sq M.predicted among non-blacks MDRD (S/P/Bld) [Vol rate/Area] 102 mL/min/{1.73_m2} Normal >[address] [facility] Comment on above: Result Comment: Non- GFR Calc Performed By: #### L 500.4050, L100.9950, L100.0100, L503.6550, L506.0250, L503.0105, L503.6030 ####[facility] [address] [place], [address] Globulin (S) [Mass/Vol] 3.0 g/dL Normal 2.2-4.2 [facility] Comment on above: Performed By: #### L 500.4050, L100.9950, L100.0100, L503.6550, L506.0250, L503.0105, L503.6030 ####[facility] [address] [place], [address] Glucose [Mass/Vol] 113 mg/dL High 74-106 [facility] Comment on above: Result Comment: Fast ing Glucose result from 100 to 125 mg/dLsuggests IMPAIRED HOMEOSTASIS per A.D.A. criteria. Performed By: #### L 500.4050, L100.9950, L100.0100, L503.6550, L506.0250, L503.0105, L503.6030 ####[facility] [address] [place], [address] Potassium [Moles/Vol] 3.8 mmol/L Normal 3.5-5.1 [facility] Comment on above: Performed By: #### L 500.4050, L100.9950, L100.0100, L503.6550, L506.0250, L503.0105, L503.6030 ####[facility] [address] [place], [address] Sodium [Moles/Vol] 138 mmol/L Normal 136-145 [facility] Comment on above: Performed By: #### L 500.4050, L100.9950, L100.0100, L503.6550, L506.0250, L503.0105, L503.6030 ####[facility] [address] [place], [address] T PROT 6.6 g/dL Normal 6.4-8.[address] [facility] Comment on above: Performed By: #### L 500.4050, L100.9950, L100.0100, L503.6550, L506.0250, L503.0105, L503.6030 ####[facility] [address] [place], [address] Urea nitrogen [Mass/Vol] 17 mg/dL Normal 7-[address] [facility] Comment on above: Performed By: #### L 500.4050, L100.9950, L100.0100, L503.6550, L506.0250, L503.0105, L503.6030 ####[facility] [address] [place], [address] Eosinophil percentageOrdered By: Zulay Celis on 07-20-2024 Eosinophils/100 WBC (Bld) 0.3 % 0-[address] [facility] Erythrocyte distribution wid th ratioOrdered By: Zulay Celis on 07-20-2024 Erythrocyte distribution width (RBC) [Ratio] 22.7 % High 11.6-14.[address] [facility] Erythrocyte distribution wid th standard deviationOrdered By: [facility] Tro[facility]at Celis on 07-20-2024 Erythrocyte distribution width (RBC) [Entitic vol] 82.9 fL High 35.1-43.[address] [facility] Estimated glomerular filtrat ion rate (GFR) AmericanOrdered By: Zulay Celis on 07-20-2024 Estimated GFR (MDRD) Amer 124 mL/min >[address] [facility] Comment on above: GFR Calc Ferritinon 07-20-2024 Ferritin [Mass/Vol] 197 ng/mL Normal 26-388 [facility] Comment on above: Performed By: #### L 500.4050, L100.9950, L100.0100, L503.6550, L506.0250, L503.0105, L503.6030 ####[facility] [address] [place], [address] Ferritin measurementOrdered By: Zulay Celis on 07-20-2024 Ferritin [Mass/Vol] 197 ng/mL 26-388 [facility] Folates, (Folic Acid)on 06-28 FOLATES 18.80 ng/mL Normal 3.1-55.[address] [facility] Comment on above: Order Comment: N Performed By: #### L 500.4050, L100.9950, L100.0100, L503.6550, L506.0250, L503.0105, L503.6030 ####[facility] [address] [place], [address] Folic acid measurementOrdere d By: Zulay Celis on 07-20-2024 Folate 18.80 ng/mL 3.1-55.[address] [facility] Glomerular filtration rate ( GFR) estimationOrdered By: [facility] Troymat Celis on 07-20-2024 Estimated GFR (MDRD) Non-Af Amer 102 mL/min >[address] [facility] Comment on above: Non- GFR Calc Glucose measurementOrdered B y: Zulay Celis on 07-20-2024 Glucose [Mass/Vol] 113 mg/dL High 74-106 [facility] Comment on above: Fasting Glucose resu lt from 100 to 125 mg/dL suggests IMPAIRED HOMEOSTASIS per A.D.A. criteria. Hematocrit Auto (Bld) [Volum e fraction]Ordered By: [facility] Troymat Celis on 07-20-2024 Hematocrit (Bld) [Volume fraction] 26.0 % Low 40-[address] [facility] Hemoglobin (Reticulocytes) [ Entitic mass]Ordered By: Zulay Celis on 07-20-2024 Reticulocyte Hemoglobin Equivalent 29.6 pg Low 30-[address] [facility] Hemoglobin measurementOrdere d By: [facility] Troymat Celis on 07-20-2024 Hemoglobin (Bld) [Mass/Vol] 8.1 g/dL Low 13.0-16.[address] [facility] Hypochromatic red blood cell detectionOrdered By: Zualy Celis on 07-20-2024 Hypochromia Ql (Bld) 1+ [facility] Hypochromia Ql (Bld)Ordered By: [facility] Troymat Celis on 07-20-2024 Hypochromasia 1+ [facility] Immature granulocytes/100 WB C Auto (Bld)Ordered By: [facility] Troymat Celis on 07-20-2024 Immature granulocytes/100 WBC (Bld) 1.200 % High 0.0-0.[address] [facility] Comment on above: IG% - Immature Granu locytes (promyelocytes, myelocytes and metamyelocytes) > 1% indicates that a LEFT SHIFT is Present. Immature platelet percentage Ordered By: Zulay Celis on 02-24-2025 Platelets reticulated/100 platelets Auto (Bld) 1.9 % 1.0-7.[address] [facility] Comment on above: Low PLT + Low IPF barnes ggest a bone marrow production disorderLow PLT + high IPF suggests peripheral destruction(e.g.ITP, TTP, HIT, DIC, autoimmune) or bone marrow recoveryTrending of serial IPF measurements is recommended when evaluating for bone marrow responesValue above normal range indicates an increase in RBC cellular response from bone marrow. Immature reticulocyte fracti onOrdered By: Zulay Celis on 07-20-2024 Immature Reticulocyte Fraction 28.80 % High 3.00-15.[address] [facility] Iron (Unsp spec) [Mass/Mass] Ordered By: Zulay Celis on 07-20-2024 Iron [Mass/Vol] 34 ug/dL Low 65-[address] [facility] Iron saturation [Mass fracti on]Ordered By: Zulay Celis on 07-20-2024 Iron Saturation 10.6 % Low 15.0-55.[address] [facility] Iron+Iron Binding Capacityon 07-20-2024 Iron [Mass/Vol] 34 ug/dL Low 65-[address] [facility] Comment on above: Performed By: #### L 500.4050, L100.9950, L100.0100, L503.6550, L506.0250, L503.0105, L503.6030 ####[facility] [address] [place], [place], [id number]) IRON SATURATION 10.6 Low 15.0-55.[address] [facility] Comment on above: Performed By: #### L 500.4050, L100.9950, L100.0100, L503.6550, L506.0250, L503.0105, L503.6030 ####[facility] [address] [place], [address] TIBC 322 ug/dL Normal 250-[address] [facility] Comment on above: Performed By: #### L 500.4050, L100.9950, L100.0100, L503.6550, L506.0250, L503.0105, L503.6030 ####[facility] [address] [place], [address] Laboratory - Chemistry and C hemistry - challengeOrdered By: Zulay Celis on 07-20-2024 AST [Catalytic activity/Vol] 24 U/L 15-[address] [facility] Laboratory - Hematology and Cell countsOrdered By: Zulay Celis on 07-20-2024 Anisocytosis Ql (Bld) 2+ [facility] Lymphocytes Auto (Unsp spec) [#/Vol]Ordered By: Zulay Celis on 07-20-2024 Lymphocytes (Bld) [#/Vol] 0.63 10*3/uL Low 0.83-4.[address] [facility] Lymphocytes/100 WBC Auto (Un sp spec)Ordered By: Zulay Celis on 07-20-2024 Lymphocytes/100 WBC (Bld) 4.9 % Low 19-[address] [facility] MCV (mean corpuscular volume ) determinationOrdered By: Zulay Celis on 07-20-2024 MCV (RBC) [Entitic vol] 99.6 fL High 80-94 [facility] Mean corpuscular hemoglobin (MCH) determinationOrdered By: [facility] Troymat Celis on 07-20-2024 MCH (RBC) [Entitic mass] 31.0 pg 27.0-32.[address] [facility] Mean corpuscular hemoglobin concentration (MCHC) determinationOrdered By: Zulay Celis on 07-20-2024 MCHC (RBC) [Mass/Vol] 31.2 g/dL Low 32-36 [facility] Mean platelet volume determi nationOrdered By: Zulay Celis on 07-20-2024 Platelet mean volume (Bld) [Entitic vol] 8.4 fL 6.2-12.[address] [facility] Monocyte percentageOrdered B y: Zulay Celis on 07-20-2024 Monocytes/100 WBC (Bld) 11.5 % High 0-10 [facility] Neutrophil percentageOrdered By: Zulay Celis on 07-20-2024 Neutrophils/100 WBC (Bld) 81.5 % High 47-[address] [facility] Nucleated red blood cell per centageOrdered By: Zulay Celis on 07-20-2024 Nucleated RBC/100 WBC (Bld) [Ratio] 0.3 % 0-[address] [facility] Oncology Visit Reporton 06-28 Oncology Visit Report Normal [facility] Platelet countOrdered By: Nasima Celis on 07-20-2024 Platelets (Bld) [#/Vol] 619 10*3/uL High 150-[address] [facility] Platelets reticulated/100 pl atelets Auto (Bld)Ordered By: Zulay Celis on 07-20-2024 Immature Platelet Fraction 1.9 % 1.0-7.[address] [facility] Comment on above: Low PLT + Low IPF barnes ggest a bone marrow production disorderLow PLT + high IPF suggests peripheral destruction(e.g.ITP, TTP, HIT, DIC, autoimmune) or bone marrow recoveryTrending of serial IPF measurements is recommended when evaluating for bone marrow responesValue above normal range indicates an increase in RBC cellular response from bone marrow. Potassium measurementOrdered By: Zulay Celis on 07-20-2024 Potassium [Moles/Vol] 3.8 mmol/L 3.5-5.1 [facility] RBC Auto (Bld) [#/Vol]Ordere d By: Zulay Celis on 07-20-2024 RBC (Bld) [#/Vol] 2.61 10*6/uL Low 4.6-6.2 [facility] Retic Panelon 07-20-2024 IM RET FRACTION 28.80 High 3.00-15.[address] [facility] Comment on above: Performed By: #### L 500.4050, L100.9950, L100.0100, L503.6550, L506.0250, L503.0105, L503.6030 ####[facility] [address] [place], [address] IPF 1.9 Normal 1.0-7.[address] [facility] Comment on above: Result Comment: Low PLT + Low IPF suggest a bone marrow production disorderLow PLT + high IPF suggests peripheral destruction(e.g.ITP, TTP, HIT, DIC, autoimmune) or bone marrow recoveryTrending of serial IPF measurements is recommended whenevaluating for bone marrow responesValue above normal range indicates an increase in RBCcellular response from bone marrow. Performed By: #### L 500.4050, L100.9950, L100.0100, L503.6550, L506.0250, L503.0105, L503.6030 ####[facility] [address] [place], [place], [id number] RET-HE 29.6 pg Low 30-[address] [facility] Comment on above: Performed By: #### L 500.4050, L100.9950, L100.0100, L503.6550, L506.0250, L503.0105, L503.6030 ####[facility] [address] [place], [place], [id number] Retic Count 3.85 High 0.5-1.[address] [facility] Comment on above: Performed By: #### L 500.4050, L100.9950, L100.0100, L503.6550, L506.0250, L503.0105, L503.6030 ####[facility] [address] [place], [place], [id number] Reticulocyte hemoglobin equi valent (RET-He) measurementOrdered By: Zulay Celis on 07-20-2024 Hemoglobin (Reticulocytes) [Entitic mass] 29.6 pg Low 30-[address] [facility] Reticulocytes Auto (Bld) [#/ Vol]Ordered By: Zulay Celis on 07-20-2024 Reticulocyte Count 3.85 % High 0.5-1.5 [facility] Reticulocytes/100 RBC (Bld) 3.85 % High 0.5-1.[address] [facility] Schistocytes LM Ql (Bld)Orde red By: Zulay Celis on 07-20-2024 Schistocytes 1+ [facility] Serum anion gap measurementO rdered By: Zulay Celis on 07-20-2024 Anion gap [Moles/Vol] 8 mmol/L 5-15 [facility] Serum globulin measurementOr dered By: Zulay Celis on 07-20-2024 Globulin (S) [Mass/Vol] 3.0 g/dL 2.2-4.2 [facility] Serum or plasma alanine lucia otransferase (ALT) measurementOrdered By: Zulay Celis on 07-20-2024 ALT [Catalytic activity/Vol] 26 U/L 16-[address] [facility] Serum or plasma albumin darian urement (mass/volume)Ordered By: Zulay Celis on 07-20-2024 Albumin [Mass/Vol] 3.6 g/dL 3.2-5.0 [facility] Serum or plasma alkaline turdi sphatase measurementOrdered By: Zulay Celis on 07-20-2024 ALP [Catalytic activity/Vol] 216 U/L High 45-[address] [facility] Serum or plasma calcium darian urement (mass/volume)Ordered By: Zulay Celis on 07-20-2024 Calcium [Mass/Vol] 8.6 mg/dL 8.5-10.1 [facility] Serum or plasma creatinine m easurement (mass/volume)Ordered By: Zulay Celis on 07-20-2024 Creatinine [Mass/Vol] 0.79 mg/dL 0.70-1.30 [facility] Comment on above: The validity of the calculated GFR & GFRAA in patients over 70 years has not been determined. Clinical correlation is essential. Serum or plasma urea nitroge n measurement (mass/volume)Ordered By: Zulay Celis on 07-20-2024 Urea nitrogen [Mass/Vol] 17 mg/dL 7-[address] [facility] Sodium levelOrdered By: Ines Celis on 07-20-2024 Sodium [Moles/Vol] 138 mmol/L 136-145 [facility] TIBCOrdered By: Zulay wills on 07-20-2024 Total Iron Binding Capacity 322 ug/dL 250-[address] [facility] Total proteinOrdered By: Kostas Celis on 07-20-2024 Protein [Mass/Vol] 6.6 g/dL 6.4-8.2 [facility] Vitamin B12on 07-20-2024 Cobalamin (Vitamin B12) [Mass/Vol] 738 pg/mL Normal 211-[address] [facility] Comment on above: Performed By: #### L 500.4050, L100.9950, L100.0100, L503.6550, L506.0250, L503.0105, L503.6030 ####[facility] [address] [place], [address] Vitamin B12 measurementOrder ed By: Zulay Celis on 07-20-2024 Cobalamin (Vitamin B12) [Mass/Vol] 738 pg/mL 211-[address] [facility] White blood cell (WBC) count Ordered By: Zulay Celis on 07-20-2024 WBC (Bld) [#/Vol] 12.8 10*3/uL High 4.4-11.0 [facility] CT Chest, Abd, Pel w/Contras ton 06-15-2024 CT Chest, Abd, Pel w/Contrast Normal [facility] Absolute lymphocyte countOrd ered By: Jean Claude Howell on 03-11-2023 Lymphocytes Auto (Unsp spec) [#/Vol] 2.51 10*3/uL 0.83-4.[address] [facility] Basophil percentageOrdered B y: Jean Claude Howell on 03-11-2023 Basophil percentage 0 SEEN /hpf 0-5 [facility] Lactate [Moles/Vol] 0.7 mmol/L 0.4-2.0 [facility] Basophils/100 WBC (Bld) 1.5 % 0-1 [facility] Bilirubin [Mass/Vol] 1.10 mg/dL 0.20-1.00 [facility] Comment on above: For patients on eltr ombopag therapy, use of Dimension Swink TBIL is not recommended. Chloride [Moles/Vol] 109 mmol/L 98-107 [facility] Eosinophils/100 WBC (Bld) 3.8 % 0-[address] [facility] Glucose [Mass/Vol] 98 mg/dL 74-106 [facility] Neutrophils (Bld) [#/Vol] 3.6 10*3/uL 2.0-7.[address] [facility] Neutrophils/100 WBC (Bld) 45.3 % 47-[address] [facility] Potassium [Moles/Vol] 4.1 mmol/L 3.5-5.1 [facility] Protein [Mass/Vol] 6.7 g/dL 6.4-8.2 [facility] Sodium [Moles/Vol] 143 mmol/L 136-145 [facility] WBC (Bld) [#/Vol] 7.9 10*3/uL 4.4-11.0 [facility] Bilirubin Test strip Ql (U)O rdered By: Jean Claude Howell on 03-11-2023 Bilirubin Ql (U) Negative Negative [facility] Blood erythrocytes count (nu mber/volume)Ordered By: Jean Claude Howell on 03-11-2023 RBC (Bld) [#/Vol] 3.20 10*6/uL 4.6-6.2 [facility] Blood hemoglobin measurement (mass/volume)Ordered By: Jean Claude Howell on 03-11-2023 Hemoglobin (Bld) [Mass/Vol] 10.8 g/dL 13.0-16.[address] [facility] Blood lymphocytes/100 leukoc ytesOrdered By: Jean Claude Howell on 03-11-2023 Lymphocytes/100 WBC (Bld) 31.9 % 19-[address] [facility] Blood monocytes/100 leukocyt esOrdered By: Jean Claude Howell on 03-11-2023 Monocytes/100 WBC (Bld) 16.9 % 0-10 [facility] Blood platelet mean volumeOr dered By: Jean Claude Howell on 03-11-2023 Platelet mean volume (Bld) [Entitic vol] 9.4 fL 6.2-12.[address] [facility] Determination of erythrocyte mean corpuscular volume (MCV)Ordered By: Jean Claude Howell on 03-11-2023 MCV (RBC) [Entitic vol] 102.5 fL 80-94 [facility] Direct bilirubinOrdered By: Jean Claude Howell on 03-11-2023 Bilirubin.direct [Mass/Vol] 0.32 mg/dL 0.00-0.[address] [facility] Hematocrit Auto (Bld) [Volum e fraction]Ordered By: Jean Claude Howell on 03-11-2023 Hematocrit (Bld) [Volume fraction] 32.8 % 40-[address] [facility] INR in Blood by Coagulation assayOrdered By: Jean Claude Howell on 03-11-2023 INR Coag (Bld) [Relative time] 1.0 {INR} [facility] Ketones Test strip Ql (U)Ord ered By: Jean Claude Howell on 03-11-2023 Ketones Ql (U) Negative Negative [facility] Laboratory - Chemistry and C hemistry - challengeOrdered By: Jean Claude Howell on 03-11-2023 ALP [Catalytic activity/Vol] 62 U/L 45-[address] [facility] ALT [Catalytic activity/Vol] 25 U/L 16-[address] [facility] CO2 [Moles/Vol] 29.0 mmol/L 21.0-32.[address] [facility] Globulin (S) [Mass/Vol] 2.8 g/dL 2.2-4.2 [facility] Lipase [Catalytic activity/Vol] 37 U/L 13-[address] [facility] Comment on above: Please note:LIPASE r evised reference range effective 22. New Lipase methodology. Expected to produce lower values than the previous assay method. NEW Reference Range: 13 - 75 U/L Urea nitrogen/Creatinine [Mass ratio] 24.3 mg/mg 10-[address] [facility] Laboratory - CoagulationOrde red By: Jean Claude Howell on 03-11-2023 aPTT Coag (Bld) [Time] 31.0 s 24.1-36.2 [facility] PT Coag (PPP) [Time] 12.9 s 11.7-14.9 [facility] Laboratory - Hematology and Cell countsOrdered By: Jean Claude Howell on 03-11-2023 Erythrocyte distribution width (RBC) [Entitic vol] 61.7 fL 35.1-43.[address] [facility] Erythrocyte distribution width (RBC) [Ratio] 16.7 % 11.6-14.[address] [facility] Immature granulocytes/100 WBC (Bld) 0.600 % 0.0-0.[address] [facility] Comment on above: IG% - Immature Granu locytes (promyelocytes, myelocytes and metamyelocytes) > 1% indicates that a LEFT SHIFT is Present. MCH (RBC) [Entitic mass] 33.8 pg 27.0-32.[address] [facility] Nucleated RBC/100 WBC (Bld) [Ratio] 0.3 % 0-[address] [facility] MCHC Auto (RBC) [Mass/Vol]Or dered By: Jean Claude Howell on 03-11-2023 MCHC (RBC) [Mass/Vol] 32.9 g/dL 32-36 [facility] Mucus LM Ql (Urine sed)Order ed By: Jean Claude Howell on 03-11-2023 Mucus Ql (Urine sed) 0 SEEN /hpf [facility] Nitrite Test strip Ql (U)Ord ered By: Jean Claude Howell on 03-11-2023 Nitrite Ql (U) Negative Negative [facility] No Panel InformationOrdered By: Jean Claude Howell on 03-11-2023 Estimated Creatinine Clearance Calc 65.14 ml/min [facility] Estimated GFR (MDRD) Amer 133 mL/min >[address] [facility] Comment on above: GFR Calc Estimated GFR (MDRD) Non-Af Amer 110 mL/min >[address] [facility] Comment on above: Non- GFR Calc Troponin I High Sensitivity 6 pg/mL 3.0-78.[address] [facility] Comment on above: Please Note: New Lorena t Units and Gender Specific Reference Ranges. For more information see Policy Stat Procedure [place] High Sensitivity Troponin (TNIH) and attachments. Platelets bldOrdered By: Dung Howell on 03-11-2023 Platelets (Bld) [#/Vol] 401 10*3/uL 150-[address] [facility] Protein Test strip Ql (U)Ord ered By: Jean Claude Howell on 03-11-2023 Protein Ql (U) Negative Negative [facility] Serum or plasma albumin darian urement (mass/volume)Ordered By: Jean Claude Howell on 03-11-2023 Albumin [Mass/Vol] 3.9 g/dL 3.2-5.0 [facility] Serum or plasma calcium darian urement (mass/volume)Ordered By: Jean Claude Howell on 03-11-2023 Calcium [Mass/Vol] 8.6 mg/dL 8.5-10.1 [facility] Serum or plasma creatinine m easurement (mass/volume)Ordered By: Jean Claude Howell on 03-11-2023 Creatinine [Mass/Vol] 0.74 mg/dL 0.70-1.30 [facility] Comment on above: The validity of the calculated GFR & GFRAA in patients over 70 years has not been determined. Clinical correlation is essential. Serum or plasma urea nitroge n measurement (mass/volume)Ordered By: Jean Claude Howell on 03-11-2023 Urea nitrogen [Mass/Vol] 18 mg/dL 7-[address] [facility] Squamous epithelial cells de tection in urine sediment by light microscopyOrdered By: Jean Claude Howell on 03-11-2023 Epithelial cells.squamous LM Ql (Urine sed) 0 SEEN /hpf 0-[address] [facility] Thin prep Papanicolaou smear with manual screeningOrdered By: Jean Claude Howell on 03-11-2023 Thin prep Papanicolaou smear with manual screening 17 U/L 15-[address] [facility] Thin prep Papanicolaou smear with manual screening 5 5-[address] [facility] Urine blood detectionOrdered By: Jean Claude Howell on 03-11-2023 RBC Ql (U) Negative Negative [facility] RBC Ql (U) 0 SEEN /hpf 0-[address] [facility] Urine clarityOrdered By: Dung Howell on 03-11-2023 Clarity (U) Clear Clear [facility] Urine color determinationOrd ered By: Jean Claude Howell on 03-11-2023 Color (U) Yellow Yellow [facility] Urine glucose detectionOrder ed By: Jean Claude Howell on 03-11-2023 Glucose Ql (U) Normal mg/dl Normal [facility] Urine leukocyte esterase det ection by dipstickOrdered By: Jean Claude Howell on 03-11-2023 Leukocyte esterase Test strip Ql (U) Negative Negative [facility] Urine pHOrdered By: Jean Claude le on 03-11-2023 pH (U) 7.0 [pH] 5.0 - 8.[address] [facility] Urine sediment bacteria coun t by microscopy (number/high power field)Ordered By: Jean Claude Howell on 03-11-2023 Bacteria LM.HPF (Urine sed) [#/Area] 0 /[HPF] None Seen [facility] Urine specific gravity measu rementOrdered By: Jean Claude Howell on 03-11-2023 Specific gravity (U) [Rel density] 1.010 1.002-1.[address] [facility] Urobilinogen Auto test strip Ql (U)Ordered By: Jean Claude Howell on 03-11-2023 Urobilinogen Ql (U) Normal mg/dl Normal [facility] CBC WITH MANUAL DIFF ([id number]) Ordered By: Flight Test Engineer on 04-29-2014 Basophils (Bld) [#/Vol] 0.1 10*3/uL Normal 0.0-0.2 [facility] Work Phone: Comment on above: PATIENT WAS FASTINGP ERFORMED BY: CB [facility] Hjhjdm9937 Phillips RoadCape Fear [facility] Hospitalin [place] [id number] Information: [id number] Basophils/100 WBC (Bld) 1 % Normal [facility]; [facility] Work Phone: Comment on above: PATIENT WAS FASTINGP ERFORMED BY: CB [facility] Fbvfob40[address] [facility] [id number] Information: [id number] Eosinophils (Bld) [#/Vol] 0.3 10*3/uL Normal 0.0-0.4 [facility]; [facility] Work Phone: Comment on above: PATIENT WAS FASTINGP ERFORMED BY: CB [facility] Ywlgqk7911 [address] RoadCape Fear [facility] Hospitalin [place] [id number] Information: [id number] Eosinophils/100 WBC (Bld) 4 % Normal [facility]; [facility] Work Phone: Comment on above: PATIENT WAS FASTINGP ERFORMED BY: CB [facility] Axrium[address] [facility] [id number] Information: [id number] Erythrocyte distribution width (RBC) [Ratio] 14.0 % Normal 12.3-15.4 [facility]; [facility] Work Phone: Comment on above: PATIENT WAS FASTINGP ERFORMED BY: CB [facility] Dgujla5221 Phillips RoadCape Fear [facility] H[facility] Hospitalin [place] [id number] Information: [id number] Hematocrit (Bld) [Volume fraction] 40.6 % Normal 37.5-51.0 [facility]; [facility] Work Phone: Comment on above: PATIENT WAS FASTINGP ERFORMED BY: LANCE Clifford[address] [facility] [id number] Information: [id number] Hemoglobin (Bld) [Mass/Vol] 13.8 g/dL Normal 12.6-17.7 [facility]; [facility] Work Phone: Comment on above: PATIENT WAS FASTINGP ERFORMED BY: [address] [id number] Information: [id number] Immature granulocytes (Bld) [#/Vol] 0.1 10*3/uL Normal 0.0-0.1 [facility]; [facility] Work Phone: Comment on above: PATIENT WAS FASTINGP ERFORMED BY: [facility] P[address]tv[address] [id number] Information: [id number] Immature granulocytes/100 WBC (Bld) 1 % Normal [facility]; [facility] Work Phone: Comment on above: PATIENT WAS FASTINGP ERFORMED BY: [facility] Bqtghz96[address] [facility] [id number] Information: [id number] Lymphocytes (Bld) [#/Vol] 1.6 10*3/uL Normal 0.7-3.1 [facility]; [facility] Work Phone: Comment on above: PATIENT WAS FASTINGP ERFORMED BY: [place] [address]256[address] [facility] [id number] Information: [id number] Lymphocytes/100 WBC (Bld) 23 % Normal [facility]; [facility] Work Phone: Comment on above: PATIENT WAS FASTINGP ERFORMED BY: [place] [address]25670 [facility] [id number] Information: [id number] MCH (RBC) [Entitic mass] 30.9 pg Normal 26.6-33.0 [facility]; [facility] Work Phone: Comment on above: PATIENT WAS FASTINGP ERFORMED BY: LANCE [address] [id number] Information: [id number] MCHC (RBC) [Mass/Vol] 34.0 g/dL Normal 31.5-35.7 [facility]; [facility] Work Phone: Comment on above: PATIENT WAS FASTINGP ERFORMED BY: LANCE [address] [id number] Information: [id number] MCV (RBC) [Entitic vol] 91 fL Normal 79-97 [facility]; [facility] Work Phone: Comment on above: PATIENT WAS FASTINGP ERFORMED BY: LANCE [address] [id number] Information: [id number] Monocytes (Bld) [#/Vol] 0.6 10*3/uL Normal 0.1-0.9 [facility]; [facility] Work Phone: Comment on above: PATIENT WAS FASTINGP ERFORMED BY: LANCE [address] [id number] Information: [id number] Monocytes/100 WBC (Bld) 9 % Normal C [facility] Internal [facility]; [facility] Work Phone: Comment on above: PATIENT WAS FASTINGP ERFORMED BY: LANCE [address] [id number] Information: [id number] Neutrophils (Bld) [#/Vol] 4.5 10*3/uL Normal 1.4-7.0 [facility]; [facility] Work Phone: Comment on above: PATIENT WAS FASTINGP ERFORMED BY: LANCE Clifford[address] [facility] [id number] Information: [id number] Neutrophils/100 WBC (Bld) 62 % Normal [facility]; [facility] Work Phone: Comment on above: PATIENT WAS FASTINGP ERFORMED BY: LANCE Clifford[address] [facility] [id number] Information: [id number] Platelets (Bld) [#/Vol] 358 10*3/uL Normal 150-379 [facility]; [facility] Work Phone: Comment on above: PATIENT WAS FASTINGP ERFORMED BY: LANCE Clifford[address] [facility] [id number] Information: [id number] RBC (Bld) [#/Vol] 4.47 10*6/uL Normal 4.14-5.80 [facility]; [facility] Work Phone: Comment on above: PATIENT WAS FASTINGP ERFORMED BY: LANCE Clifford[address] [facility] [id number] Information: [id number] WBC (Bld) [#/Vol] 7.1 10*3/uL Normal 3.4-10.8 [facility]; [facility] Work Phone: Comment on above: PATIENT WAS FASTINGP ERFORMED BY: LANCE Mack Pqhmzh[address] [facility] [id number] Information: [id number] LIPID PANEL ([id number])Ordered B y: Flight Test Engineer on 04-29-2014 Cholesterol [Mass/Vol] 141 mg/dL Normal 100-199 [facility]; [facility] Work Phone: Comment on above: PATIENT WAS FASTINGP ERFORMED BY: LANCE Clifford[address] [facility] [id number] Cholesterol in HDL [Mass/Vol] 45 mg/dL Normal [facility]; [facility] Work Phone: Comment on above: According to ATP-III Guidelines, HDL-C >59 mg/dL is considered anegative risk factor for CHD. PATIENT WAS FASTINGP ERFORMED BY: LANCE [facility] Qbsint[address] Clubbl[place] [id number] Cholesterol in LDL [Mass/Vol] 75 mg/dL Normal 0-99 [facility]; [facility] Work Phone: Comment on above: PATIENT WAS FASTINGP ERFORMED BY: CB [facility] Zgnbaw6956 [address] Roadblin [place] [id number] Cholesterol in LDL/Cholesterol in HDL [Mass ratio] 1.7 {ratio_units} Normal 0.0-3.6 [facility]; [facility] Work Phone: Comment on above: LDL/HDL Ratio Men Wo men 1/2 Avg.Risk 1.0 1.5 Avg.Risk 3.6 3.2 2X Avg.Risk 6.2 5.0 3X Avg.Risk 8.0 6.1 PATIENT WAS FASTINGP ERFORMED BY: CB [facility] Tbatel[address] ClubCape Fear Valley [facility] Hospitalin [place] [id number] Cholesterol in VLDL [Mass/Vol] 21 mg/dL Normal 5-40 [facility]; [facility] Work Phone: Comment on above: PATIENT WAS FASTINGP ERFORMED BY: CB [facility] Jcifol[address] [place] [id number] Triglyceride [Mass/Vol] 106 mg/dL Normal 0-149 [facility]; [facility] Work Phone: Comment on above: PATIENT WAS FASTINGP ERFORMED BY: CB [facility] Vsujeh3284 Phillips RoadDublin [place] [id number] METABOLIC PANEL, COMPREHENSI VE ([id number])Ordered By: Flight Test Engineer on 04-29-2014 Albumin [Mass/Vol] 4.6 g/dL Normal 3.6-4.8 Compre [facility] Internal [facility]; [facility] Work Phone: Comment on above: PATIENT WAS FASTINGP ERFORMED BY: CB [facility] Dhfwuh3260 [address] RoadDublin [place] [id number] Albumin/Globulin [Mass ratio] 2.3 {ratio} Normal 1.1-2.5 [facility]; [facility] Work Phone: Comment on above: PATIENT WAS FASTINGP ERFORMED BY: LANCE [facility] Lsrzpg3947 Phillips RoadDublin [place] [id number] ALP [Catalytic activity/Vol] 74 U/L Normal 39-117 [facility]; [facility] Work Phone: Comment on above: PATIENT WAS FASTINGP ERFORMED BY: CB [facility] Iwpoiq9100 [address] RoadDublin [place] [id number] ALT [Catalytic activity/Vol] 32 U/L Normal 0-44 [facility]; [facility] Work Phone: Comment on above: PATIENT WAS FASTINGP ERFORMED BY: [facility] Phujzi8652 [address] RoadDublin [place] [id number] AST [Catalytic activity/Vol] 29 U/L Normal 0-40 [facility]; [facility] Work Phone: Comment on above: PATIENT WAS FASTINGP ERFORMED BY: [facility] Wuuxdc0110 [address] RoadDublin [place] [id number] Bilirubin [Mass/Vol] 0.6 mg/dL Normal 0.0-1.2 [facility]; [facility] Work Phone: Comment on above: PATIENT WAS FASTINGP ERFORMED BY: [facility] Qfqfcf8535 [address] RoadDublin [place] [id number] Calcium [Mass/Vol] 9.9 mg/dL Normal 8.6-10.2 [facility]; [facility] Work Phone: Comment on above: PATIENT WAS FASTINGP ERFORMED BY: [facility] Kingnl5228 [address] RoadDublin [place] [id number] Chloride [Moles/Vol] 103 mmol/L Normal 97-108 [facility]; [facility] Work Phone: Comment on above: PATIENT WAS FASTINGP ERFORMED BY: [facility] Akadie3984 [address] RoadDublin [place] [id number] CO2 [Moles/Vol] 27 mmol/L Normal 18-29 [facility]; [facility] Work Phone: Comment on above: PATIENT WAS FASTINGP ERFORMED BY: CB [facility] Tkhdia1568 [address] RoadDublin [place] [id number] Creatinine [Mass/Vol] 0.79 mg/dL Normal 0.76-1.27 [facility] prehensive Internal Medicine; [facility] Work Phone: Comment on above: PATIENT WAS FASTINGP ERFORMED BY: CB [facility] Ykfaps1797 [address] RoadDublin [place] [id number] GFR/1.73 sq M.predicted among blacks CKD-EPI (S/P/Bld) [Vol rate/Area] 110 mL/min/1.73 Normal [facility]; [facility] Work Phone: Comment on above: PATIENT WAS FASTINGP ERFORMED BY: CB [facility] Filiwd3487 [address] RoadDublin [place] [id number] GFR/1.73 sq M.predicted among non-blacks CKD-EPI (S/P/Bld) [Vol rate/Area] 95 mL/min/1.73 Normal [facility]; [facility] Work Phone: Comment on above: PATIENT WAS FASTINGP ERFORMED BY: CB [facility] Cnpnmv5995 [address] RoadDublin [place] [id number] Globulin (S) [Mass/Vol] 2.0 g/dL Normal 1.5-4.5 [facility]; [facility] Work Phone: Comment on above: PATIENT WAS FASTINGP ERFORMED BY: CB [facility] Oofyct98[address] RoadDublin [place] [id number] Glucose [Mass/Vol] 89 mg/dL Normal 65-99 [facility]; [facility] Work Phone: Comment on above: PATIENT WAS FASTINGP ERFORMED BY: CB [facility] Iydxfn5927 [address] RoadDublin [place] [id number] Potassium [Moles/Vol] 4.9 mmol/L Normal 3.5-5.2 [facility] prehensive Internal [facility]; [facility] Work Phone: Comment on above: PATIENT WAS FASTINGP ERFORMED BY: LANCE [facility] Lcldui8757 [address] RoadDublin [place] [id number] Protein [Mass/Vol] 6.6 g/dL Normal 6.0-8.5 [facility]; [facility] Work Phone: Comment on above: PATIENT WAS FASTINGP ERFORMED BY: CB [facility] Gpksww3521 [address] RoadDublin [place] [id number] Sodium [Moles/Vol] 142 mmol/L Normal 134-144 [facility]; [facility] Work Phone: Comment on above: PATIENT WAS FASTINGP ERFORMED BY: CB [facility] Nzxmwe0925 [address] RoadDublin [place] [id number] Urea nitrogen [Mass/Vol] 16 mg/dL Normal 8-27 [facility]; [facility] Work Phone: Comment on above: PATIENT WAS FASTINGP ERFORMED BY: CB [facility] Mgxgkf9492 [address] RoadDublin [place] [id number] Urea nitrogen/Creatinine [Mass ratio] 20 mg/mg Normal 10-22 [facility]; [facility] Work Phone: Comment on above: PATIENT WAS FASTINGP ERFORMED BY: CB [facility] Nwyymr4888 [address] RoadDublin [place] [id number] PSA (PROSTATE SPECIFIC ANTIG EN) (V76.44)Ordered By: Flight Test Engineer on 04-29-2014 Prostate specific Ag [Mass/Vol] 0.4 ng/mL Normal 0.0-4.0 [facility]; [facility] Work Phone: Comment on above: Marcy ECLIA methodol ogy. .According to the [place] [employer], Serum PSA shoulddecrease and remain at undetectable levels after radicalprostatectomy. The AUA defines biochemical recurrence as an initialPSA value 0.2 ng/mL or greater followed by a subsequent confirmatoryPSA value 0.2 ng/mL or greater.Values obtained with different assay methods or kits cannot be usedinterchangeably. Results cannot be interpreted as absolute evidenceof the presence or absence of malignant disease. PATIENT WAS FASTINGP ERFORMED BY: [facility] [facility] [id number] FECAL OCCULT- Tubes sent nieves e ([id number])on 03-19-2011 Hemoglobin.gastrointest inal Ql (Stl) Negative Normal [facility]; [facility] Work Phone: Vital Signs Date Time Vital Sign Value Performing Clinician Facility 03-09-2025 09:40-0400 Body height 177.8 cm [facility] 03-09-2025 09:40-0400 Body mass index (BMI) [Ratio] 17.6 kg/m2 [facility] 03-09-2025 09:40-0400 Body temperature 98.2 [degF] [facility] 03-09-2025 09:40-0400 Body weight 55.9 kg [facility] 03-09-2025 09:40-0400 Diastolic blood pressure 75 mm[Hg] [facility] 03-09-2025 09:40-0400 Heart rate 72 /min [facility] 03-09-2025 09:40-0400 Respiratory rate 16 /min [facility] 03-09-2025 09:40-0400 SaO2% (BldA) [Mass fraction] 94 % [facility] 03-09-2025 09:40-0400 Systolic blood pressure 114 mm[Hg] [facility] 03-02-2025 09:34-0400 Body height 177.8 cm [facility] 03-02-2025 09:34-0400 Body mass index (BMI) [Ratio] 17.5 kg/m2 [facility] 03-02-2025 09:34-0400 Body temperature 98.1 [degF] [facility] 03-02-2025 09:34-0400 Body weight 55.45 kg [facility] 03-02-2025 09:34-0400 Diastolic blood pressure 71 mm[Hg] [facility] 03-02-2025 09:34-0400 Heart rate 82 /min [facility] 03-02-2025 09:34-0400 Respiratory rate 18 /min [facility] 03-02-2025 09:34-0400 SaO2% (BldA) [Mass fraction] 93 % [facility] 03-02-2025 09:34-0400 Systolic blood pressure 109 mm[Hg] [facility] 02-16-2025 11:37-0400 Body temperature 97.8 [degF] [facility] 02-16-2025 11:37-0400 Diastolic blood pressure 61 mm[Hg] [facility] 02-16-2025 11:37-0400 Heart rate 71 /min [facility] 02-16-2025 11:37-0400 Respiratory rate 16 /min [facility] 02-16-2025 11:37-0400 SaO2% (BldA) [Mass fraction] 97 % [facility] 02-16-2025 11:37-0400 Systolic blood pressure 105 mm[Hg] [facility] 02-16-2025 09:26-0400 Body height 177.8 cm [facility] 02-16-2025 09:26-0400 Body mass index (BMI) [Ratio] 17.9 kg/m2 [facility] 02-16-2025 09:26-0400 Body temperature 98 [degF] [facility] 02-16-2025 09:26-0400 Body weight 56.69 kg [facility] 02-16-2025 09:26-0400 Diastolic blood pressure 68 mm[Hg] [facility] 02-16-2025 09:26-0400 Heart rate 82 /min [facility] 02-16-2025 09:26-0400 Respiratory rate 16 /min [facility] 02-16-2025 09:26-0400 SaO2% (BldA) [Mass fraction] 94 % [facility] 02-16-2025 09:26-0400 Systolic blood pressure 107 mm[Hg] [facility] 02-10-2025 07:58-0400 Body height 177.8 cm [facility] 02-10-2025 07:58-0400 Body mass index (BMI) [Ratio] 17.6 kg/m2 [facility] 02-10-2025 07:58-0400 Body temperature 98.2 [degF] [facility] 02-10-2025 07:58-0400 Body weight 55.56 kg [facility] 02-10-2025 07:58-0400 Diastolic blood pressure 65 mm[Hg] [facility] 02-10-2025 07:58-0400 Heart rate 88 /min [facility] 02-10-2025 07:58-0400 Respiratory rate 18 /min [facility] 02-10-2025 07:58-0400 SaO2% (BldA) [Mass fraction] 93 % [facility] 02-10-2025 07:58-0400 Systolic blood pressure 99 mm[Hg] [facility] 02-02-2025 09:21-0400 Body height 177.8 cm [facility] 02-02-2025 09:21-0400 Body mass index (BMI) [Ratio] 18 kg/m2 [facility] 02-02-2025 09:21-0400 Body temperature 98.4 [degF] [facility] 02-02-2025 09:21-0400 Body weight 56.95 kg [facility] 02-02-2025 09:21-0400 Diastolic blood pressure 75 mm[Hg] [facility] 02-02-2025 09:21-0400 Heart rate 75 /min [facility] 02-02-2025 09:21-0400 Respiratory rate 16 /min [facility] 02-02-2025 09:21-0400 SaO2% (BldA) [Mass fraction] 96 % [facility] 02-02-2025 09:21-0400 Systolic blood pressure 118 mm[Hg] [facility] 01-21-2025 12:53-0400 Body temperature 97.5 [degF] [facility] [facility]25 12:53-0400 Diastolic blood pressure 62 mm[Hg] [facility] 01-21-2025 12:53-0400 Heart rate 79 /min [facility] 01-21-2025 12:53-0400 Respiratory rate 16 /min [facility] 01-21-2025 12:53-0400 SaO2% (BldA) [Mass fraction] 95 % [facility] 01-21-2025 12:53-0400 Systolic blood pressure 107 mm[Hg] [facility] 01-19-2025 11:48-0400 Body height 177.8 cm [facility] 01-19-2025 11:48-0400 Body weight 56.75 kg [facility] 01-19-2025 09:45-0400 Body height 177.8 cm [facility] 01-19-2025 09:45-0400 Body mass index (BMI) [Ratio] 17.9 kg/m2 [facility] 01-19-2025 09:45-0400 Body temperature 98.2 [degF] [facility] 01-19-2025 09:45-0400 Body weight 56.75 kg [facility] 01-19-2025 09:45-0400 Diastolic blood pressure 67 mm[Hg] [facility] 01-19-2025 09:45-0400 Heart rate 73 /min [facility] 01-19-2025 09:45-0400 Respiratory rate 18 /min [facility] 01-19-2025 09:45-0400 SaO2% (BldA) [Mass fraction] 94 % [facility] 01-19-2025 09:45-0400 Systolic blood pressure 103 mm[Hg] [facility] 01-05-2025 09:49-0400 Body height 177.8 cm [facility] 01-05-2025 09:49-0400 Body mass index (BMI) [Ratio] 18.2 kg/m2 [facility] 01-05-2025 09:49-0400 Body temperature 98.1 [degF] [facility] 01-05-2025 09:49-0400 Body weight 57.6 kg [facility] 01-05-2025 09:49-0400 Diastolic blood pressure 72 mm[Hg] [facility] 01-05-2025 09:49-0400 Heart rate 68 /min [facility] 01-05-2025 09:49-0400 Respiratory rate 16 /min [facility] 01-05-2025 09:49-0400 SaO2% (BldA) [Mass fraction] 94 % [facility] 01-05-2025 09:49-0400 Systolic blood pressure 115 mm[Hg] [facility] 12-22-2024 09:49-0400 Body height 177.8 cm [facility] 12-22-2024 09:49-0400 Body mass index (BMI) [Ratio] 17.9 kg/m2 [facility] 12-22-2024 09:49-0400 Body temperature 98.2 [degF] [facility] 12-22-2024 09:49-0400 Body weight 56.78 kg [facility] 12-22-2024 09:49-0400 Diastolic blood pressure 70 mm[Hg] [facility] 12-22-2024 09:49-0400 Heart rate 73 /min [facility] 12-22-2024 09:49-0400 Respiratory rate 18 /min [facility] 12-22-2024 09:49-0400 SaO2% (BldA) [Mass fraction] 97 % [facility] 12-22-2024 09:49-0400 Systolic blood pressure 109 mm[Hg] [facility] 12-08-2024 09:24-0400 Body height 177.8 cm [facility] 12-08-2024 09:24-0400 Body mass index (BMI) [Ratio] 18.1 kg/m2 [facility] 12-08-2024 09:24-0400 Body temperature 98.1 [degF] [facility] 12-08-2024 09:24-0400 Body weight 57.35 kg [facility] 12-08-2024 09:24-0400 Diastolic blood pressure 64 mm[Hg] [facility] 12-08-2024 09:24-0400 Heart rate 71 /min [facility] 12-08-2024 09:24-0400 Respiratory rate 16 /min [facility] 12-08-2024 09:24-0400 SaO2% (BldA) [Mass fraction] 98 % [facility] 12-08-2024 09:24-0400 Systolic blood pressure 103 mm[Hg] [facility] 11-24-2024 11:47-0400 Body temperature 96.3 [degF] [facility] 11-24-2024 11:47-0400 Diastolic blood pressure 62 mm[Hg] [facility] 11-24-2024 11:47-0400 Heart rate 61 /min [facility] 11-24-2024 11:47-0400 Respiratory rate 16 /min [facility] 11-24-2024 11:47-0400 SaO2% (BldA) [Mass fraction] 96 % [facility] 11-24-2024 11:47-0400 Systolic blood pressure 113 mm[Hg] [facility] 11-24-2024 09:34-0400 Body height 177.8 cm [facility] 11-24-2024 09:34-0400 Body mass index (BMI) [Ratio] 18.3 kg/m2 [facility] 11-24-2024 09:34-0400 Body temperature 98 [degF] [facility] 11-24-2024 09:34-0400 Body weight 58.17 kg [facility] 11-24-2024 09:34-0400 Diastolic blood pressure 69 mm[Hg] [facility] 11-24-2024 09:34-0400 Heart rate 70 /min [facility] 11-24-2024 09:34-0400 Respiratory rate 16 /min [facility] 11-24-2024 09:34-0400 SaO2% (BldA) [Mass fraction] 95 % [facility] 11-24-2024 09:34-0400 Systolic blood pressure 111 mm[Hg] [facility] 11-11-2024 14:51-0400 Body temperature 96.6 [degF] [facility] 11-11-2024 14:51-0400 Diastolic blood pressure 60 mm[Hg] [facility] 11-11-2024 14:51-0400 Heart rate 71 /min [facility] 11-11-2024 14:51-0400 Respiratory rate 16 /min [facility] 11-11-2024 14:51-0400 Systolic blood pressure 95 mm[Hg] [facility] 11-11-2024 09:34-0400 Body height 177.8 cm [facility] 11-11-2024 09:33-0400 Body mass index (BMI) [Ratio] 18.3 kg/m2 [facility] 11-11-2024 09:33-0400 Body temperature 98.3 [degF] [facility] 11-11-2024 09:33-0400 Body weight 58.2 kg [facility] 11-11-2024 09:33-0400 Diastolic blood pressure 73 mm[Hg] [facility] 11-11-2024 09:33-0400 Heart rate 69 /min [facility] 11-11-2024 09:33-0400 Respiratory rate 18 /min [facility] 11-11-2024 09:33-0400 SaO2% (BldA) [Mass fraction] 97 % [facility] 11-11-2024 09:33-0400 Systolic blood pressure 118 mm[Hg] [facility] 10-29-2024 13:25-0400 Body temperature 97.5 [degF] [facility] 10-29-2024 13:25-0400 Diastolic blood pressure 65 mm[Hg] [facility] 10-29-2024 13:25-0400 Heart rate 83 /min [facility] 10-29-2024 13:25-0400 Respiratory rate 16 /min [facility] 10-29-2024 13:25-0400 SaO2% (BldA) [Mass fraction] 96 % [facility] 10-29-2024 13:25-0400 Systolic blood pressure 105 mm[Hg] [facility] 10-27-2024 09:15-0400 Body height 177.8 cm [facility] 10-27-2024 09:12-0400 Body mass index (BMI) [Ratio] 18.5 kg/m2 [facility] 10-27-2024 09:12-0400 Body temperature 97.8 [degF] [facility] 10-27-2024 09:12-0400 Body weight 58.62 kg [facility] 10-27-2024 09:12-0400 Diastolic blood pressure 75 mm[Hg] [facility] 10-27-2024 09:12-0400 Heart rate 71 /min [facility] 10-27-2024 09:12-0400 Respiratory rate 18 /min [facility] 10-27-2024 09:12-0400 SaO2% (BldA) [Mass fraction] 97 % [facility] 10-27-2024 09:12-0400 Systolic blood pressure 118 mm[Hg] [facility] 10-13-2024 10:25-0400 Body height 177.8 cm [facility] 10-13-2024 10:25-0400 Body weight 58.11 kg [facility] 10-13-2024 09:37-0400 Body height 177.8 cm [facility] 10-13-2024 09:37-0400 Body mass index (BMI) [Ratio] 18.3 kg/m2 [facility] 10-13-2024 09:37-0400 Body temperature 97.8 [degF] [facility] 10-13-2024 09:37-0400 Body weight 58.11 kg [facility] 10-13-2024 09:37-0400 Diastolic blood pressure 76 mm[Hg] [facility] 10-13-2024 09:37-0400 Heart rate 69 /min [facility] 10-13-2024 09:37-0400 Respiratory rate 16 /min [facility] 10-13-2024 09:37-0400 SaO2% (BldA) [Mass fraction] 95 % [facility] 10-13-2024 09:37-0400 Systolic blood pressure 116 mm[Hg] [facility] 09-29-2024 09:09-0400 Body mass index (BMI) [Ratio] 18.8 kg/m2 [facility] 09-29-2024 09:09-0400 Body temperature 97.8 [degF] [facility] 09-29-2024 09:09-0400 Body weight 59.42 kg [facility] 09-29-2024 09:09-0400 Diastolic blood pressure 70 mm[Hg] [facility] 09-29-2024 09:09-0400 Heart rate 76 /min [facility] 09-29-2024 09:09-0400 Respiratory rate 14 /min [facility] 09-29-2024 09:09-0400 SaO2% (BldA) [Mass fraction] 95 % [facility] 09-29-2024 09:09-0400 Systolic blood pressure 113 mm[Hg] [facility] 09-15-2024 11:06-0400 Body temperature 96.3 [degF] [facility] 09-15-2024 11:06-0400 Diastolic blood pressure 57 mm[Hg] [facility] 09-15-2024 11:06-0400 Heart rate 69 /min [facility] 09-15-2024 11:06-0400 Respiratory rate 16 /min [facility] 09-15-2024 11:06-0400 SaO2% (BldA) [Mass fraction] 99 % [facility] 09-15-2024 11:06-0400 Systolic blood pressure 106 mm[Hg] [facility] 09-15-2024 08:46-0400 Body mass index (BMI) [Ratio] 18.2 kg/m2 [facility] 09-15-2024 08:46-0400 Body temperature 97.7 [degF] [facility] 09-15-2024 08:46-0400 Body weight 57.74 kg [facility] 09-15-2024 08:46-0400 Diastolic blood pressure 66 mm[Hg] [facility] 09-15-2024 08:46-0400 Heart rate 69 /min [facility] 09-15-2024 08:46-0400 Respiratory rate 18 /min [facility] 09-15-2024 08:46-0400 SaO2% (BldA) [Mass fraction] 97 % [facility] 09-15-2024 08:46-0400 Systolic blood pressure 104 mm[Hg] [facility] 09-01-2024 08:26-0400 Body mass index (BMI) [Ratio] 18.1 kg/m2 [facility] 09-01-2024 08:26-0400 Body temperature 97.9 [degF] [facility] 09-01-2024 08:26-0400 Body weight 57.15 kg [facility] 09-01-2024 08:26-0400 Diastolic blood pressure 62 mm[Hg] [facility] 09-01-2024 08:26-0400 Heart rate 69 /min [facility] 09-01-2024 08:26-0400 Respiratory rate 16 /min [facility] 09-01-2024 08:26-0400 SaO2% (BldA) [Mass fraction] 98 % [facility] 09-01-2024 08:26-0400 Systolic blood pressure 94 mm[Hg] [facility] 08-24-2024 14:47-0400 Body mass index (BMI) [Ratio] 17.6 kg/m2 [facility] 08-24-2024 14:47-0400 Body temperature 98 [degF] [facility] 08-24-2024 14:47-0400 Body weight 55.96 kg [facility] 08-24-2024 14:47-0400 Diastolic blood pressure 67 mm[Hg] [facility] 08-24-2024 14:47-0400 Heart rate 69 /min [facility] 08-24-2024 14:47-0400 Respiratory rate 16 /min [facility] 08-24-2024 14:47-0400 SaO2% (BldA) [Mass fraction] 98 % [facility] 08-24-2024 14:47-0400 Systolic blood pressure 102 mm[Hg] [facility] 08-18-2024 09:04-0400 Body mass index (BMI) [Ratio] 17.8 kg/m2 [facility] 08-18-2024 09:04-0400 Body temperature 98 [degF] [facility] 08-18-2024 09:04-0400 Body weight 56.27 kg [facility] 08-18-2024 09:04-0400 Diastolic blood pressure 61 mm[Hg] [facility] 08-18-2024 09:04-0400 Heart rate 71 /min [facility] 08-18-2024 09:04-0400 Respiratory rate 18 /min [facility] 08-18-2024 09:04-0400 SaO2% (BldA) [Mass fraction] 99 % [facility] 08-18-2024 09:04-0400 Systolic blood pressure 96 mm[Hg] [facility] 08-11-2024 15:00-0400 Body mass index (BMI) [Ratio] 17.9 kg/m2 [facility] 08-11-2024 15:00-0400 Body temperature 97.9 [degF] [facility] 08-11-2024 15:00-0400 Body weight 56.86 kg [facility] 08-11-2024 15:00-0400 Diastolic blood pressure 64 mm[Hg] [facility] 08-11-2024 15:00-0400 Heart rate 76 /min [facility] 08-11-2024 15:00-0400 Respiratory rate 16 /min [facility] 08-11-2024 15:00-0400 SaO2% (BldA) [Mass fraction] 98 % [facility] 08-11-2024 15:00-0400 Systolic blood pressure 103 mm[Hg] [facility] 08-04-2024 09:09-0400 Body mass index (BMI) [Ratio] 17.8 kg/m2 [facility] 08-04-2024 09:09-0400 Body temperature 97.9 [degF] [facility] 08-04-2024 09:09-0400 Body weight 56.24 kg [facility] 08-04-2024 09:09-0400 Diastolic blood pressure 65 mm[Hg] [facility] 08-04-2024 09:09-0400 Heart rate 79 /min [facility] 08-04-2024 09:09-0400 Respiratory rate 16 /min [facility] 08-04-2024 09:09-0400 SaO2% (BldA) [Mass fraction] 94 % [facility] 08-04-2024 09:09-0400 Systolic blood pressure 101 mm[Hg] [facility] 07-30-2024 13:04-0500 Body temperature 97.9 [degF] [facility] 07-30-2024 13:04-0500 Diastolic blood pressure 65 mm[Hg] [facility] 07-30-2024 13:04-0500 Heart rate 69 /min [facility] 07-30-2024 13:04-0500 Respiratory rate 16 /min [facility] 07-30-2024 13:04-0500 SaO2% (BldA) [Mass fraction] 98 % [facility] 07-30-2024 13:04-0500 Systolic blood pressure 105 mm[Hg] [facility] 07-30-2024 11:05-0500 Body height 177.8 cm [facility] 07-30-2024 11:05-0500 Body mass index (BMI) [Ratio] 18 kg/m2 [facility] 07-30-2024 11:05-0500 Body weight 57 kg [facility] 07-28-2024 10:17-0500 Body mass index (BMI) [Ratio] 18.2 kg/m2 [facility] 07-28-2024 10:17-0500 Body weight 57.6 kg [facility] 07-28-2024 10:17-0500 Diastolic blood pressure 64 mm[Hg] [facility] 07-28-2024 10:17-0500 Respiratory rate 18 /min [facility] 07-28-2024 10:17-0500 Systolic blood pressure 100 mm[Hg] [facility] 07-27-2024 15:01-0500 Body mass index (BMI) [Ratio] 18.2 kg/m2 [facility] 07-27-2024 15:01-0500 Body temperature 97.4 [degF] [facility] 07-27-2024 15:01-0500 Body weight 57.77 kg [facility] 07-27-2024 15:01-0500 Diastolic blood pressure 63 mm[Hg] [facility] 07-27-2024 15:01-0500 Heart rate 79 /min [facility] 07-27-2024 15:01-0500 Respiratory rate 18 /min [facility] 07-27-2024 15:01-0500 SaO2% (BldA) [Mass fraction] 99 % [facility] 07-27-2024 15:01-0500 Systolic blood pressure 97 mm[Hg] [facility] 07-20-2024 09:23-0500 Body mass index (BMI) [Ratio] 17.9 kg/m2 [facility] 07-20-2024 09:23-0500 Body temperature 98 [degF] [facility] 07-20-2024 09:23-0500 Body weight 56.86 kg [facility] 07-20-2024 09:23-0500 Diastolic blood pressure 64 mm[Hg] [facility] 07-20-2024 09:23-0500 Heart rate 82 /min [facility] 07-20-2024 09:23-0500 Respiratory rate 16 /min [facility] 07-20-2024 09:23-0500 SaO2% (BldA) [Mass fraction] 99 % [facility] 07-20-2024 09:23-0500 Systolic blood pressure 94 mm[Hg] [facility] 03-11-2023 07:20-0400 Body temperature 97.6 [degF] [facility] 03-11-2023 07:20-0400 Diastolic blood pressure 78 mm[Hg] [facility] 03-11-2023 07:20-0400 Heart rate 64 /min [facility] 03-11-2023 07:20-0400 Respiratory rate 14 /min [facility] 03-11-2023 07:20-0400 SaO2% (BldA) [Mass fraction] 99 % [facility] 03-11-2023 07:20-0400 Systolic blood pressure 128 mm[Hg] [facility] 03-11-2023 06:00-0400 Inhaled oxygen flow rate 2 L/min [facility] 03-11-2023 04:42-0400 Body height 177.8 cm [facility] 03-11-2023 04:42-0400 Body mass index (BMI) [Ratio] 22.1 kg/m2 [facility] 03-11-2023 04:42-0400 Body weight 70 kg [facility] 06-04-2014 10:03-0500 Body height 171.45 cm [facility] Cris[facility]; [facility] Work Phone: 06-04-2014 10:03-0500 Body mass index (BMI) [Ratio] 25.77 kg/m2 Savanah Crisostomo [facility]; [facility] Work Phone: 06-04-2014 10:03-0500 Body surface area Derived from formula 1.88 m[address] [facility]; [facility] Work Phone: 06-04-2014 10:03-0500 Body temperature 97.2 [degF] [facility]ah Negretetrudy [facility]; [facility] Work Phone: 06-04-2014 10:03-0500 Body weight 75.75 kg [facility] [facility]; [facility] Work Phone: 06-04-2014 10:03-0500 Diastolic blood pressure 80 mm[Hg] [facility]anah Negretetrudy [facility]; [facility] Work Phone: Comment on above: Patient Position: Sitting; Cuff Location : Left Arm; Cuff Size: Large 06-04-2014 10:03-0500 Heart rate 74 /min [facility]anah De Andaraisa [facility]; [facility] Work Phone: Comment on above: Pattern: Regular 06-04-2014 10:03-0500 Respiratory rate 16 /min Savanah De Andaraisa [facility]; [facility] Work Phone: Comment on above: Pattern: Unlabored 06-04-2014 10:03-0500 Systolic blood pressure 122 mm[Hg] Savanah Negretetrudy [facility]; [facility] Work Phone: Comment on above: Patient Position: Sitting; Cuff Location : Left Arm; Cuff Size: Large 01-05-2014 08:58-0400 Body height 171.45 [address] [facility]; [facility] Work Phone: 01-05-2014 08:58-0400 Body mass index (BMI) [Ratio] 25.15 kg/m2 Savanah Negretetrudy [facility]; [facility] Work Phone: 01-05-2014 08:58-0400 Body surface area Derived from formula 1.86 m2 [facility] Andressa [facility]; [facility] Work Phone: 01-05-2014 08:58-0400 Body temperature 97.6 [degF] Savanah Andressa [facility]; [facility] Work Phone: 01-05-2014 08:58-0400 Body weight 73.[address] [facility]; [facility] Work Phone: 01-05-2014 08:58-0400 Diastolic blood pressure 76 mm[Hg] [facility] Andressa [facility]; [facility] Work Phone: Comment on above: Patient Position: Sitting; Cuff Location : Left Arm; Cuff Size: Standard 01-05-2014 08:58-0400 Heart rate 68 /min [facility] Andressa [facility]; [facility] Work Phone: Comment on above: Pattern: Regular 01-05-2014 08:58-0400 Respiratory rate 16 /min Savanah Andressa [facility]; [facility] Work Phone: Comment on above: Pattern: Unlabored 01-05-2014 08:58-0400 Systolic blood pressure 112 mm[Hg] Savanah Negretetrudy [facility]; [facility] Work Phone: Comment on above: Patient Position: Sitting; Cuff Location : Left Arm; Cuff Size: Standard 07-28-2013 11:21-0500 Body height 171.45 cm [facility]; [facility] Work Phone: 07-28-2013 11:21-0500 Body mass index (BMI) [Ratio] 25.92 kg/m2 Savanah Crisostomo [facility]; [facility] Work Phone: 07-28-2013 11:21-0500 Body surface area Derived from formula 1.[address] [facility]; [facility] Work Phone: 07-28-2013 11:21-0500 Body temperature 98.6 [degF] Savanah Crisostomo [facility]; [facility] Work Phone: 07-28-2013 11:21-0500 Body weight 76.[address] [facility]; [facility] Work Phone: 07-28-2013 11:21-0500 Diastolic blood pressure 72 mm[Hg] Savanah Andressa [facility]; [facility] Work Phone: Comment on above: Patient Position: Sitting; Cuff Location : Left Arm; Cuff Size: Large 07-28-2013 11:21-0500 Heart rate 70 /min Savanah Andressa [facility]; [facility] Work Phone: Comment on above: Pattern: Regular 07-28-2013 11:21-0500 Respiratory rate 16 /min Savanah Andressa [facility]; [facility] Work Phone: Comment on above: Pattern: Unlabored 07-28-2013 11:21-0500 Systolic blood pressure 110 mm[Hg] Savanah Andressa [facility]; [facility] Work Phone: Comment on above: Patient Position: Sitting; Cuff Location : Left Arm; Cuff Size: Large 12-16-2012 09:22-0400 Body height 171.[address] [facility]; [facility] Work Phone: 12-16-2012 09:22-0400 Body mass index (BMI) [Ratio] 25.15 kg/m2 Savanah Crisostomo [facility]; [facility] Work Phone: 12-16-2012 09:22-0400 Body surface area Derived from formula 1.86 m2 [facility]ah [address] [facility]; [facility] Work Phone: 12-16-2012 09:22-0400 Body temperature 99.1 [degF] Savanah Crisostomo [facility]; [facility] Work Phone: 12-16-2012 09:22-0400 Body weight 73.[address] [facility]; [facility] Work Phone: 12-16-2012 09:22-0400 Diastolic blood pressure 72 mm[Hg] Savanah Crisostomo [facility]; [facility] Work Phone: Comment on above: Patient Position: Sitting; Cuff Location : Left Arm; Cuff Size: Large 12-16-2012 09:22-0400 Heart rate 68 /min Savanah Crisostomo [facility]; [facility] Work Phone: Comment on above: Pattern: Regular 12-16-2012 09:22-0400 Respiratory rate 16 /min Savanah Andressa [facility]; [facility] Work Phone: Comment on above: Pattern: Unlabored 12-16-2012 09:22-0400 Systolic blood pressure 118 mm[Hg] Savanah Crisostomo [facility]; [facility] Work Phone: Comment on above: Patient Position: Sitting; Cuff Location : Left Arm; Cuff Size: Large 06-23-2012 15:03-0500 Body height 171.[address] [facility]; [facility] Work Phone: 06-23-2012 15:03-0500 Body mass index (BMI) [Ratio] 25 kg/m2 Savanah Crisostomo [facility]; [facility] Work Phone: 06-23-2012 15:03-0500 Body surface area Derived from formula 1.86 [address] [facility]; [facility] Work Phone: 06-23-2012 15:03-0500 Body temperature 98.5 [degF] Savanah Crisostomo [facility]; [facility] Work Phone: 06-23-2012 15:03-0500 Body weight 73.[address] [facility]; [facility] Work Phone: 06-23-2012 15:03-0500 Diastolic blood pressure 70 mm[Hg] Savanah Crisostomo [facility]; [facility] Work Phone: Comment on above: Patient Position: Sitting; Cuff Location : Left Arm; Cuff Size: Large 06-23-2012 15:03-0500 Heart rate 86 /min Savanah Andressa [facility]; [facility] Work Phone: Comment on above: Pattern: Regular 06-23-2012 15:03-0500 Respiratory rate 16 /min Savanah Negretetrudy [facility]; [facility] Work Phone: Comment on above: Pattern: Unlabored 06-23-2012 15:03-0500 Systolic blood pressure 102 mm[Hg] Savanah Andressa [facility]; [facility] Work Phone: Comment on above: Patient Position: Sitting; Cuff Location : Left Arm; Cuff Size: Large 03-19-2011 15:31-0400 Body height 171.[address] [facility]; [facility] Work Phone: 03-19-2011 15:31-0400 Body mass index (BMI) [Ratio] 24.84 kg/m2 Savanah Andressa [facility]; [facility] Work Phone: 03-19-2011 15:31-0400 Body surface area Derived from formula 1.85 m2 Savanah Andressa [facility]; [facility] Work Phone: 03-19-2011 15:31-0400 Body temperature 97.9 [degF] Savanah Negretetrudy [facility]; [facility] Work Phone: 03-19-2011 15:31-0400 Body weight 73.[address] [facility]; [facility] Work Phone: 03-19-2011 15:31-0400 Diastolic blood pressure 86 mm[Hg] Savanah Andressa [facility]; [facility] Work Phone: Comment on above: Patient Position: Sitting; Cuff Location : Left Arm; Cuff Size: Standard 03-19-2011 15:31-0400 Heart rate 72 /min Savanah Andressa [facility]; [facility] Work Phone: Comment on above: Pattern: Regular 03-19-2011 15:31-0400 Respiratory rate 18 /min Savanah Andressa [facility]; [facility] Work Phone: Comment on above: Pattern: Unlabored 03-19-2011 15:31-0400 Systolic blood pressure 120 mm[Hg] Savanah Andressa [facility]; [facility] Work Phone: Comment on above: Patient Position: Sitting; Cuff Location : Left Arm; Cuff Size: Standard 01-03-2010 15:35-0400 Body height 171.[address] [facility]; [facility] Work Phone: 01-03-2010 15:35-0400 Body mass index (BMI) [Ratio] 25.15 kg/m2 Savanah Crisostomo [facility]; [facility] Work Phone: 01-03-2010 15:35-0400 Body surface area Derived from formula 1.[address] [facility]; [facility] Work Phone: 01-03-2010 15:35-0400 Body temperature 99.5 [degF] Savanah Crisostomo [facility]; [facility] Work Phone: 01-03-2010 15:35-0400 Body weight 73.[address] [facility]; [facility] Work Phone: 01-03-2010 15:35-0400 Diastolic blood pressure 72 mm[Hg] Savanah Crisostomo [facility]; [facility] Work Phone: Comment on above: Patient Position: Sitting; Cuff Location : Left Arm; Cuff Size: Large 01-03-2010 15:35-0400 Heart rate 68 /min Savanah Crisostomo [facility]; [facility] Work Phone: Comment on above: Pattern: Regular 01-03-2010 15:35-0400 Respiratory rate 18 /min Savanah Crisostomo [facility]; [facility] Work Phone: Comment on above: Pattern: Unlabored 01-03-2010 15:35-0400 Systolic blood pressure 110 mm[Hg] Savanah Crisostomo [facility]; [facility] Work Phone: Comment on above: Patient Position: Sitting; Cuff Location : Left Arm; Cuff Size: Large 09-28-2008 15:28-0400 Body height [address] [facility]; [facility] Work Phone: 09-28-2008 15:28-0400 Body temperature 97.9 [degF] Savanah Negretemuraliraisa [facility]; [facility] Work Phone: Comment on above: Method: Undefined 09-28-2008 15:28-0400 Body weight 78.47 kg [address] [facility]; [facility] Work Phone: 09-28-2008 15:28-0400 Diastolic blood pressure 84 mm[Hg] Savanah De Andaraisa [facility]; [facility] Work Phone: Comment on above: Patient Position: Sitting; Cuff Location : Right Arm; Cuff Size: Standard 09-28-2008 15:28-0400 Head Occipital-frontal circumference 0 [address] [facility]; [facility] Work Phone: 09-28-2008 15:28-0400 Heart rate 72 /min Savanah Negretetrudy [facility]; [facility] Work Phone: Comment on above: Pattern: Regular 09-28-2008 15:28-0400 Respiratory rate 16 /min Savanah Andressa [facility]; [facility] Work Phone: Comment on above: Pattern: Undefined 09-28-2008 15:28-0400 Systolic blood pressure 104 mm[Hg] Savanah De Andaraisa [facility]; [facility] Work Phone: Comment on above: Patient Position: Sitting; Cuff Location : Right Arm; Cuff Size: Standard 08-25-2008 16:33-0400 Body height 175.26 cm [facility]; [facility] Work Phone: 08-25-2008 16:33-0400 Body mass index (BMI) [Ratio] 26.14 kg/m2 Caryn Calame [facility]; [facility] Work Phone: 08-25-2008 16:33-0400 Body surface area Derived from formula 1.[address] [facility]; [facility] Work Phone: 08-25-2008 16:33-0400 Body temperature 98.4 [degF] Caryn Laboy [facility]; [facility] Work Phone: Comment on above: Method: Oral 08-25-2008 16:33-0400 Body weight 80.[address] [facility]; [facility] Work Phone: 08-25-2008 16:33-0400 Diastolic blood pressure 88 mm[Hg] Caryn Laboy [facility]; [facility] Work Phone: Comment on above: Patient Position: Sitting; Cuff Location : Left Arm; Cuff Size: Standard 08-25-2008 16:33-0400 Head Occipital-frontal circumference [address] [facility]; [facility] Work Phone: 08-25-2008 16:33-0400 Heart rate 68 /min Caryn Laboy [facility]; [facility] Work Phone: Comment on above: Pattern: Regular 08-25-2008 16:33-0400 Respiratory rate 18 /min Caryn Laboy [facility]; [facility] Work Phone: Comment on above: Pattern: Unlabored 08-25-2008 16:33-0400 Systolic blood pressure 144 mm[Hg] Caryn Laboy [facility]; [facility] Work Phone: Comment on above: Patient Position: Sitting; Cuff Location : Left Arm; Cuff Size: Standard 04-26-2008 15:16-0500 Body height 0 cm Savanah Crisostomo [facility]; [facility] Work Phone: 04-26-2008 15:16-0500 Body temperature 97.7 [degF] Savanah Crisostomo [facility]; [facility] Work Phone: Comment on above: Method: Undefined 04-26-2008 15:16-0500 Body weight 0 [address] De [address] [facility]; [facility] Work Phone: 04-26-2008 15:16-0500 Diastolic blood pressure 82 mm[Hg] Savanah Crisostomo [facility]; [facility] Work Phone: Comment on above: Patient Position: Sitting; Cuff Location : Left Arm; Cuff Size: Large 04-26-2008 15:16-0500 Head Occipital-frontal circumference [address] [facility]; [facility] Work Phone: 04-26-2008 15:16-0500 Heart rate 68 /min Savanah Negretetrudy [facility]; [facility] Work Phone: Comment on above: Pattern: Regular 04-26-2008 15:16-0500 Respiratory rate 16 /min Savanah Negretetrudy [facility]; [facility] Work Phone: Comment on above: Pattern: Undefined 04-26-2008 15:16-0500 Systolic blood pressure 112 mm[Hg] Savanah Negretetrudy [facility]; [facility] Work Phone: Comment on above: Patient Position: Sitting; Cuff Location : Left Arm; Cuff Size: Large 10-21-2007 16:01-0400 Body height [address] [facility]; [facility] Work Phone: 10-21-2007 16:01-0400 Body temperature 97.8 [degF] Savanah Negretetrudy [facility]; [facility] Work Phone: Comment on above: Method: Undefined 10-21-2007 16:01-0400 Body weight 78.[address] [facility]; [facility] Work Phone: 10-21-2007 16:01-0400 Diastolic blood pressure 70 mm[Hg] Savanah Negretetrudy [facility]; [facility] Work Phone: Comment on above: Patient Position: Sitting; Cuff Location : Left Arm; Cuff Size: Standard 10-21-2007 16:01-0400 Head Occipital-frontal circumference [address] [facility]; [facility] Work Phone: 10-21-2007 16:01-0400 Heart rate 64 /min Savanah Crisostomo [facility]; [facility] Work Phone: Comment on above: Pattern: Regular 10-21-2007 16:01-0400 Respiratory rate 16 /min Savanah Crisostomo [facility]; [facility] Work Phone: Comment on above: Pattern: Undefined 10-21-2007 16:01-0400 Systolic blood pressure 110 mm[Hg] Savanah Crisostomo [facility]; [facility] Work Phone: Comment on above: Patient Position: Sitting; Cuff Location : Left Arm; Cuff Size: Standard 07-29-2007 08:14-0500 Body height 175.26 cm [facility]; [facility] Work Phone: 07-29-2007 08:14-0500 Body temperature 98.4 [degF] [facility]; [facility] Work Phone: Comment on above: Method: Oral 07-29-2007 08:14-0500 Body weight 0 kg [facility]; [facility] Work Phone: 07-29-2007 08:14-0500 Diastolic blood pressure 70 mm[Hg] [facility]; [facility] Work Phone: Comment on above: Patient Position: Sitting; Cuff Location : Left Arm; Cuff Size: Standard 07-29-2007 08:14-0500 Head Occipital-frontal circumference 0 cm [facility]; [facility] Work Phone: 07-29-2007 08:14-0500 Heart rate 80 /min [facility]; [facility] Work Phone: Comment on above: Pattern: Regular 07-29-2007 08:14-0500 Respiratory rate 18 /min [facility]; [facility] Work Phone: Comment on above: Pattern: Unlabored 07-29-2007 08:14-0500 Systolic blood pressure 120 mm[Hg] Teodora West [facility]; [facility] Work Phone: Comment on above: Patient Position: Sitting; Cuff Location : Left Arm; Cuff Size: Standard 08-13-2006 14:35-0400 Body height 175.26 cm Savanah Andressa [facility]; [facility] Work Phone: 08-13-2006 14:35-0400 Body temperature 97.9 [degF] Savanah Andressa [facility]; [facility] Work Phone: Comment on above: Method: Oral 08-13-2006 14:35-0400 Body weight [address] [facility]; [facility] Work Phone: 08-13-2006 14:35-0400 Diastolic blood pressure 78 mm[Hg] Savanah Andressa [facility]; [facility] Work Phone: Comment on above: Patient Position: Sitting; Cuff Location : Left Arm; Cuff Size: Standard 08-13-2006 14:35-0400 Head Occipital-frontal circumference 0 cm Savanah Boothe [facility]; [facility] Work Phone: 08-13-2006 14:35-0400 Heart rate 76 /min Savanah Crisostomo [facility]; [facility] Work Phone: Comment on above: Pattern: Regular 08-13-2006 14:35-0400 Respiratory rate 16 /min Savanah Crisostomo [facility]; [facility] Work Phone: Comment on above: Pattern: Unlabored 08-13-2006 14:35-0400 Systolic blood pressure 112 mm[Hg] Savanah Andressa [facility]; [facility] Work Phone: Comment on above: Patient Position: Sitting; Cuff Location : Left Arm; Cuff Size: Standard Encounters Encounter Date Encounter Type Care Provider Facility Start: 04-06-2025 End: 04-06-2025 ambulatory [facility] Facility:[facility] [place] Start: 03-23-2025 End: 03-23-2025 ambulatory Laurie Vail Facility:[facility] [place] Start: 03-09-2025 End: 03-09-[address] Zulay Celis MD [facility] Work Phone: Start: 03-09-2025 End: 03-09-2025 [facility] Start: 03-02-[address] [facility] Start: 03-02-2025 End: 03-02-2025 Patient encounter procedure Laurie RaeYared [facility] Work Phone: Start: 03-02-2025 End: 03-02-2025 [facility] Start: 02-16-2025 End: 02-16-[address] Zulay Celis MD [facility] Work Phone: Start: 02-16-2025 End: 02-16-2025 [facility] Start: 02-10-2025 End: 02-10-2025 Patient encounter procedure Lauriedebby RaeYared [facility] Work Phone: Start: 02-10-2025 End: 02-10-2025 [facility] Start: 02-10-[address] [facility] Start: 02-02-[address] [facility] Start: 02-02-2025 End: 02-02-2025 Patient encounter procedure Laurie Yared [facility] Work Phone: Start: 02-02-2025 End: 02-02-2025 [facility] Start: 01-21-[address] [facility] Start: 01-19-[address] [facility] Start: 01-19-2025 End: 01-19-[address] Zulay Celis MD [facility] Work Phone: Start: 01-19-2025 End: 01-19-2025 [facility] Start: 01-15-2025 End: 01-15-2025 ambulatory [facility] -Cat Scan [facility] Start: 01-15-2025 End: 01-15-2025 Patient encounter procedure Laurie Yared TECHNICAL PHOTOGRAPHER-C -Cat Scan [facility] Work Phone: Start: 01-15-2025 End: 01-15-2025 ambulatory Laurie Yared TECHNICAL PHOTOGRAPHER Facility:[facility] Start: 01-05-[address] Katiuska Celis MD [facility] Start: 01-05-2025 End: 01-05-[address] Zulay Celis MD [facility] Work Phone: Start: 01-05-2025 End: 01-05-2025 [facility] Start: 12-22-[address] [facility] Start: 12-22-2024 End: 12-22-[address] Santosh Pires MD -[facility] Work Phone: Start: 12-22-2024 End: 12-22-2024 [facility] Start: 12-08-[address] [facility] Start: 12-08-2024 End: 12-08-2024 Patient encounter procedure Laurie Yared TECHNICAL PHOTOGRAPHER-C -[facility] Work Phone: Start: 12-08-2024 End: 12-08-2024 [facility] Start: 11-24-[address] [facility] Start: 11-24-2024 End: 11-24-[address] Zulay Celis MD -[facility] Work Phone: Start: 11-24-2024 End: 11-24-2024 [facility] Start: 11-11-[address] [facility] Start: 11-11-2024 End: 11-11-2024 Patient encounter procedure Laurie Yared TECHNICAL PHOTOGRAPHER-C -[facility] Work Phone: Start: 11-11-2024 End: 11-11-2024 ambulatory [facility] Work Phone: Start: 10-27-2024 End: 10-27-[address] Zulay Celis MD -[facility] Work Phone: Start: 10-27-2024 End: 10-27-2024 [facility] Work Phone: Start: 10-27-[address] Katiuska Celis MD [facility] Start: 10-21-2024 End: 10-21-2024 [facility] Work Phone: Start: 10-21-2024 End: 10-21-2024 Patient encounter procedure Laurie Vail TECHNICAL PHOTOGRAPHER-C -Cat Scan [facility] Work Phone: Start: 10-21-2024 End: 10-21-2024 ambulatory Laurie Yared TECHNICAL PHOTOGRAPHER Facility:[facility] Start: 10-15-[address] Katiuska Celis MD [facility] Start: 10-13-[address] Katiuska Celis MD -[facility] Start: 10-13-2024 End: 10-13-[address] Zulay Celis MD -[facility] Work Phone: Start: 10-13-2024 End: 10-13-2024 [facility] Work Phone: Start: 09-29-2024 End: 09-29-[address] Zulay Celis MD -[facility] Work Phone: Start: 09-29-2024 End: 09-29-2024 [facility] Facility:[facility] [place] Start: 09-18-2024 ambulatory AMRIT KAHN [facility] Start: 09-18-2024 End: 09-18-2024 Evaluation and management of inpatient McCe Xr A [facility] Start: 09-18-2024 End: 09-18-2024 Subsequent hospital visit by physician Sheila Baird [facility] Comment on above: Lung cancer (CMS/HCC V24, CMS/HCC V28) Start: 09-15-2024 End: 09-15-2024 Patient encounter procedure Laurie Yared TECHNICAL PHOTOGRAPHER-C -[facility] Work Phone: Start: 09-15-2024 End: 09-15-2024 ambulatory Laurie Yared TECHNICAL PHOTOGRAPHER Facility:[facility] Start: 09-01-2024 End: 09-01-2024 Patient encounter procedure Laurie Yared TECHNICAL PHOTOGRAPHER-C -[facility] Work Phone: Start: 09-01-2024 End: 09-01-2024 ambulatory Laurie Yared TECHNICAL PHOTOGRAPHER Facility:[facility] Start: 08-24-2024 End: 08-24-2024 Patient encounter procedure Laurie Yared TECHNICAL PHOTOGRAPHER-C -[facility] Work Phone: Start: 08-24-2024 End: 08-24-2024 ambulatory Laurie Yared TECHNICAL PHOTOGRAPHER Facility:[facility] Start: 08-18-2024 End: 08-18-2024 Patient encounter procedure Laurie Yared TECHNICAL PHOTOGRAPHER-C -[facility] Work Phone: Start: 08-18-2024 End: 08-18-2024 ambulatory Laurie Yared TECHNICAL PHOTOGRAPHER Facility:[facility] Start: 08-11-2024 End: 08-11-2024 Patient encounter procedure Laurie Yared TECHNICAL PHOTOGRAPHER-C -[facility] Work Phone: Start: 08-11-2024 End: 08-11-2024 ambulatory Laurie Yared TECHNICAL PHOTOGRAPHER Facility:[facility] Start: 08-04-2024 End: 08-04-[address] Zulay Celis MD -[facility] Work Phone: Start: 08-04-2024 End: 08-04-2024 ambulatory [facility] Facility:[facility] Start: 07-30-2024 ambulatory Andrade Epstein Facility :[facility] Start: 07-30-2024 Non-patient / Non-visit Dr. Juma AVINA -[facility] Start: 07-30-2024 End: 07-30-2024 Admission to same day surgery center Dr. Andrade Epstein MD -[facility] Start: 07-30-2024 End: 07-30-2024 [facility] Work Phone: Start: 07-28-2024 End: 07-28-[address] Andrade Epstein MD -[facility] Work Phone: Start: 07-28-2024 End: 07-28-2024 ambulatory Andrade Epstein Facility:[facility] [place] Start: 07-27-2024 End: 07-27-2024 [facility] Work Phone: Start: 07-27-2024 End: 07-27-2024 ambulatory Laurie Vail NP Facility:[facility] [place] Start: 07-23-2024 End: 07-23-2024 Telephone encounter Aracely Lovett APRN.MEDIA DIRECTOR Work Phone: Gastroenterology Start: 07-22-2024 End: 07-22-2024 Telephone encounter Aracely Lovett APRN.MEDIA DIRECTOR Work Phone: [facility] Start: 07-20-[address] Katiuska Celis MD [facility] Start: 07-20-2024 End: 07-20-2024 Patient encounter procedure Dr. Zulay Celis MD [facility] Work Phone: Start: 07-20-2024 End: 07-20-2024 [facility] Facility:[facility] [place] Start: 07-15-2024 End: 07-15-2024 ambulatory Aracely Lovett APRN.MEDIA DIRECTOR Work Phone: Gastroenterology Comment on above: Primary pancreatic a denocarcinoma (HCC) (Primary Dx); Esophageal carcinoma (HCC); Dysphagia, unspecified type; Pain of upper abdomen Start: 07-15-2024 End: 07-15-2024 Telemedicine consultation with patient Aracely Rachell HUTTONMEDIA DIRECTOR Work Phone: Gastroenterology Start: 07-14-2024 Non-patient / Non-visit Sarah Rahman [facility] [place] Work Phone: Start: 07-14-2024 ambulatory Sarah Mccartney Facility :[facility] Start: 06-15-2024 End: 06-15-[address] Jt Elmore MD -Cat Scan, [facility] Work Phone: Start: 06-15-2024 End: 06-15-2024 ambulatory Jt Elmore Facility:[facility] Start: 05-12-2023 Non-patient / Non-visit [facility] Start: 05-10-2023 End: 05-10-2023 ambulatory [facility] Work Phone: Start: 05-10-2023 End: 05-10-2023 Patient encounter procedure [facility] Work Phone: Start: 03-11-2023 End: 03-11-2023 Emergency department patient visit [facility] Work Phone: Start: 01-26-2023 End: 01-26-[address] [facility] Work Phone: Start: 01-26-2023 End: 01-26-2023 [facility] Work [facility]: Start: 10-02-2022 End: 10-02-[address] [facility] Work Phone: Start: 10-02-2022 End: 10-02-2022 [facility] Start: 01-04-2015 End: 01-04-2015 Refill Request Pilar Fast DO Work Phone: [facility] Start: 06-04-2014 End: 06-04-2014 Office outpatient visit 15 minutes Pilar Fast DO Work Phone: [facility] Start: 03-16-2014 End: 03-16-2014 Office outpatient visit 5 minutes Pilar Fast DO Work Phone: [facility] Start: 01-05-2014 End: 01-05-2014 Office consultation new/estab patient 40 min Pilar Fast DO Work Phone: [facility] Start: 07-28-2013 End: 07-28-2013 Patient encounter procedure Pilar Fast DO Work Phone: [facility] Start: 03-18-2013 End: 03-18-2013 Patient encounter procedure Pilar Fast DO Work Phone: [facility] Start: 12-16-2012 End: 12-16-2012 Patient encounter procedure Pilar Fast DO Work Phone: [facility] Start: 06-23-2012 End: 06-23-2012 Patient encounter procedure Pilar Fast DO Work Phone: [facility] Start: 06-10-2012 End: 06-10-2012 Phone Encounter Pilar Fast DO Work Phone: [facility] Start: 04-04-2011 End: 04-04-2011 Patient encounter procedure Pilar Fast DO Work Phone: [facility] Start: 03-19-2011 End: 03-20-2011 Patient encounter procedure Pilar Fast DO Work Phone: [facility] Start: 01-17-2011 End: 01-17-2011 Patient encounter procedure Pilar Fast DO Work Phone: [facility] Start: 01-03-2010 End: 01-03-2010 Patient encounter procedure Pilar Fast DO Work Phone: [facility] Start: 09-28-2008 End: 09-28-2008 Patient encounter procedure Pilar Fast DO Work Phone: [facility] Start: 08-25-2008 End: 08-26-2008 Patient encounter procedure Pilar Fast DO Work Phone: [facility] Start: 04-26-2008 End: 04-26-2008 Patient encounter procedure Pilar Fast DO Work Phone: [facility] Start: 10-21-2007 End: 10-21-2007 Patient encounter procedure Pilar Fast DO Work Phone: [facility] Start: 07-29-2007 End: 07-29-2007 Office outpatient visit 15 minutes Pilar Fast DO Work Phone: [facility] Start: 08-13-2006 End: 08-14-2006 Office outpatient visit 25 minutes Pilar Fast DO Work Phone: [facility] Start: 08-07-2006 End: 08-07-2006 Historical Summary Pilar Fast DO Work Phone: [facility] Start: 07-30-2006 End: 07-30-2006 Refill Request Pilar Fast DO Work Phone: [facility] Start: 07-24-2006 End: 07-24-2006 Refill Request Pilar Fast DO Work Phone: [facility] End: 06-04-2014 Preprocedural examination done Flight Test Engineer [facility] Work Phone: Procedures Date Procedure Procedure Detail Performing Clinician Start: 03-09-2025 [facility] Start: 03-02-2025 Est[facility] Start: 03-02-2025 Serum inorganic phosphate measurement [facility] Start: 02-16-2025 Estimated [facility] Start: 02-10-2025 Estimated creatinine [facility] Start: 02-10-2025 Lymphocyte percent differential count [facility] Start: 02-02-2025 Estimated creatinine [facility] Start: 02-02-2025 Serum inorganic phosphate measurement [facility] Start: 02-02-2025 Total iron binding capacity measurement [facility] Start: 01-19-2025 Estimated creatinine [facility] Start: 01-15-2025 CT of thorax, abdome n and pelvis with contrast [facility] Start: 01-05-2025 Estimated creatinine [facility] Start: 01-05-2025 Red blood cell morphology [facility] Start: 12-22-2024 Estimated [facility] Start: 12-22-2024 Red blood cell [facility] Start: 12-08-2024 Estimated creatinine [facility] Start: 12-08-2024 Red blood cell [facility] Start: 12-08-2024 Serum inorganic phosphate measurement [facility] Start: 11-24-2024 Estimated [facility] Start: 11-11-2024 Estimated [facility] Start: 11-11-2024 Serum inorganic phosphate measurement [facility] Start: 10-27-2024 Estimated creatinine clearance [facility] Start: 10-21-2024 CT of thorax, abdome n and pelvis with contrast [facility] Start: 10-13-2024 Estimated creatinine clearance [facility] Start: 10-13-2024 Serum inorganic phosphate measurement [facility] Start: 09-18-2024 Radiologic exam ches t 2 views Amrit Kahn MD Work Phone: Start: 08-24-2024 Red blood cell morphology [facility] Start: 08-18-2024 Total iron binding capacity measurement [facility] Start: 07-30-2024 [facility] Start: 07-30-2024 Implantation to cardiovascular system [facility] Start: 07-30-2024 Fluoroscopic guidance [facility] Start: 07-20-2024 Folic acid measurement [facility] Start: 07-20-2024 Immature reticulocyt e fraction [facility] Start: 07-20-2024 Measurement of renal function [facility] Comment on above: GFR Calc Start: 06-15-2024 CT of thorax, abdome n and pelvis with contrast [facility] Start: 05-10-2023 Radionuclide imaging of perfusion of myocardium under exercise stress [facility] Start: 03-11-2023 CT of thorax, abdome n and pelvis with contrast Start: 01-26-2023 CT of chest without contrast Start: 10-02-2022 CT of chest without contrast Start: 01-30-2018 End: 01-30-2018 Chest without Contrast Comments: See Note; NOTES: [facility] Imaging Services [address] [place] [id number] Chest without Contrast MR#: [id number] Acct: [id number] Name: AMADO GALLARDO Rep #: [id number] : 1950 M 67 From: Jose Li DO PCP: Pilar Alvarado DO Status: REG CLIrma Study: Chest without Contrast Date of Exam: 01/30/18 Exam# [id number] Ordering Dr: BRYAN LOYA STUDY: CT CHEST WITHOUT CONTRAST REASON FOR EXAM: Male, 67 years old. Hemoptysis. RADIATION DOSAGE (If Supplied By Facility): CTDIvol = ( 10.63 ) mGy, DLP = ( 366.57 ) mGycm TECHNIQUE: Transaxial imaging was performed without the administration of intravenous contrast material. Multiplanar coronal and sagittal images were reformatted. Individualized dose optimization techniques were used for this CT. COMPARISON: None. FINDINGS: The lungs are well expanded. There is a 3 mm calcified granuloma in the inferior aspect of the right upper lobe. There are vague patchy groundglass infiltrates in both upper lobes and more extensively in the left lower lobe. There is no consolidation. There is no soft tissue mass. There is no demonstrated pleural abnormality. Normal heart and pericardium. There are calcifications of the coronary arteries. Normal mediastinum. Normal hilar regions. Normal unenhanced pulmonary arteries. There is atherosclerotic calcification of the aortic arch with tortuosity and elongation of the aortic arch and descending thoracic aorta. Normal osseous structures. There is a small cyst in the posterior aspect of the right lobe of liver measuring 9 mm in greatest dimension. There is a larger 1.9 cm cyst in segment 2 of the liver. There are calcified granulomata within the spleen. The abdomen appears otherwise unremarkable. CT/Chest without Contrast IMPRESSION: 1. Vague groundglass infiltrates in the bilateral bilateral upper lobes and more extensively in the left lower lobe. 2. Old granulomatous disease. 3. Hepatic cysts. Electronically Signed: Jose Li DO at 18:42 EDT Tel [phone], Service support , CC: Pilar Alvarado DO; BRYAN LOYA Experimental Mechanic Electrical: Signed Sheridan Brady MD Work Phone: Start: 04-25-2015 End: 04-25-2015 Aorta Comments: See Note; NOTES: [facility] Imaging Services [address] [place] [id number] [address] 4d Aorta MR#: [id number] Acct: [id number] Name: AMADO GALLARDO Kenzie Rep #: [id number] : 1950 M [id number] From: Rosibel Vicente MD PCP: Pilar Alvarado DO Status: REG CLI Study: Aorta Date of Exam: 04/25/15 Exam# [id number] Ordering Dr: SHEIKH CHAWLA PROCEDURES: ULTRASOUND AORTA REASON FOR EXAM: Male, 64 years old. AAA SCREENING TECHNIQUE: Ultrasound evaluation of the aorta was performed with real-time and static armas-scale imaging. COMPARISON: None. FINDINGS: There is atherosclerotic plaque formation of the abdominal aorta. Aorta measures: Proximal 2.2 cm. Middle 1.9 cm. Distal 1.5 cm. Aorta measure transversely: Proximal 1.9 cm. Middle 1.4 cm. Distal 1.3 cm. Right iliac artery measures: 1.1 cm. Right iliac artery measure transversely: 1.1 cm. Left iliac artery measures: 0.9 cm. Left iliac artery measure transversely: 0.9 cm. There is no demonstrated aneurysm.. IMPRESSION: Atherosclerotic changes in the abdominal aorta without aneurysmal dilatation. Electronically Signed: Pan Vicente MD at 13:19 EST Tel , Service support [phone], CC: Pilar Alvarado DO; SHEIKH CAMMY Experimental Mechanic Electrical: Signed Sheridan Brady MD Work Phone: Start: 07-08-2007 Angie lyn APRN.CNP Work Phone: Plan of Treatment Date Care Activity Detail Author Start: 03-23-2025 Serum inorganic phosphate measurement [facility] Start: 03-23-[address] [facility] Start: 03-11-2025 Registered Recurring Registered Recurring [facility] Start: 03-02-2025 Serum inorganic phosphate measurement [facility] Start: 03-02-2025 T4 free measurement [facility] Start: 03-02-2025 Thyroid stimulating hormone measurement [facility] Start: 03-02-[address] [facility] Start: 02-18-2025 Registered Recurring Registered Rec[facility]ring [facility] Start: 02-10-[address] [facility] Start: 02-02-2025 Ferritin [Mass/volume] in Serum or Plasma [facility] Start: 02-02-2025 Iron and Iron binding capacity panel - Serum or Plasma [facility] Start: 02-02-2025 Serum inorganic phosphate measurement [facility] Start: 02-02-2025 Vitamin B12 measurement [facility] Start: 02-02-[address] [facility] Start: 01-19-[address] [facility] Start: 01-15-2025 Venous catheter care management [facility] Start: 01-05-[address] [facility] Start: 12-22-[address] [facility] Start: 12-08-[address] [facility] Start: 11-24-[address] [facility] Start: 11-11-[address] [facility] Start: 10-27-2024 Serum inorganic phosphate measurement [facility] Start: 10-27-[address] [facility] Start: 10-21-2024 Venous catheter care management [facility] Start: 10-13-[address] [facility] Start: 09-19-2024 Abdominal aortic aneurysm screening Abdominal Aortic Aneurysm (AAA) Screen [facility] Start: 09-19-2024 Adolescent depression screening assessment Depression Screening [facility] Start: 09-19-2024 Falls Risk Assessment Falls Risk Assessment [facility] Start: 09-19-2024 Hepatitis C screening Hepatitis C Screening [facility] Start: 09-19-2024 Lipid panel Cholesterol Screening (Lipid Panel) [facility] Start: 09-19-2024 Medicare Annual Wellness Visit Medicare Annual Wellness Visit [facility] Start: 09-19-2024 Screening for malignant neoplasm of colon Colorectal Cancer Screening: Colonoscopy [facility] Start: 09-19-2024 Social Influencers of Health Screening Social Influencers of Health Screening [facility] Start: 08-12-2024 Administration of blood product [facility] Start: 08-12-[address] [facility] Start: 08-04-2024 Patient referral [place] [facility] Work Phone: Start: 08-04-2024 Venous catheter care management [facility] Start: 2024 RSV Immunization Adult Patients (1 - 1-dose 75+ series) RSV Immunization Adult Patients (1 - 1-dose 75+ series) [facility] Start: 2024 RSV Vaccine (1 - 1-dose 75+ series) RSV Vaccine (1 - 1-dose 75+ series) [facility] Start: 07-30-2024 Anesthesia access central venous circulation ANESTH VASCULAR ACCESS [facility] Start: 07-30-2024 Insj tunneled ctr vad w/subq port age 4 yr/> INSERT TUNNELED CV CATH [facility] Start: 07-30-2024 Patient discharge [facility] Start: 07-27-2024 Patient referral [facility] Work Phone: Start: 07-20-2024 Patient referral [facility] Work Phone: Start: 06-08-2024 DTaP,Tdap,and Td Vaccines (2 - Td or Tdap) DTaP,Tdap,and Td Vaccines (2 - Td or Tdap) [facility] Start: 06-08-2024 Urine microalbumin profile DTaP,Tdap,Td Vaccine (2 - Td or Tdap) [facility] Start: 05-27-2024 Advance Directive Discussion Advance Directive Discussion [facility] Start: 01-26-2024 Covid-19 Vaccine ( season) Covid-19 Vaccine ( season) [facility] Start: 03-11-[address] [facility] Start: 07-08-2017 Screening for malignant neoplasm of colon [facility] Start: 11-06-2015 Diabetes Screening Diabetes Screening [facility] Start: 06-04-2014 Comprehensive metabolic panel METABOLIC PANEL, COMPREHENSIVE (79009) [facility] Work Phone: Start: 06-04-2014 Lipid panel LIPID PANEL (35619) [facility] Work Phone: Start: 03-16-2014 Patient Education Flu (Influenza) *: flu shot [facility]; [facility] Work Phone: Start: 01-05-2014 Urnls dip stick/tablet reagent auto microscopy URINALYSIS, W/ MICRO (82807) [facility]; [facility] Work Phone: Start: 01-05-2014 Blood count manual cell count each CBC WITH MANUAL DIFF (85055) [facility]; [facility] Work Phone: Start: 01-05-2014 Comprehensive metabolic panel METABOLIC PANEL, COMPREHENSIVE (90432) [facility]; [facility] Work Phone: Start: 12-16-2012 Patient Education High Blood Pressure (Essential Hypertension) *: blood pressure problems [facility]; [facility] Work Phone: Start: 12-16-2012 Comprehensive metabolic panel METABOLIC PANEL, COMPREHENSIVE (61529) [facility]; [facility] Work Phone: Start: 12-16-2012 Lipid panel LIPID PANEL (83123) [facility] Work Phone: Start: 06-23-2012 Patient Education High Cholesterol (Hypercholesterolemia) *: cholesterol [facility]; [facility] Work Phone: Start: 06-23-2012 Provider Instructions for Treatment Diet, Exercise, and Wt loss [facility]; [facility] Work Phone: Start: 06-10-2012 Assay of prostate specific antigen total PSA (PROSTATE SPECIFIC ANTIGEN) (12516) [facility]; [facility] Work Phone: Start: 06-10-2012 Lipid panel Lipid Panel (35393) [facility] Work Phone: Start: 06-10-2012 Comprehensive metabolic panel Metabolic Panel, Comprehensive (71023) [facility]; [facility] Work Phone: Start: 06-10-2012 Blood count manual cell count each CBC with manual diff (79337) [facility]; [facility] Work Phone: Start: 06-10-2012 Assay of iron Iron (94104) [facility] Work Phone: Start: 09-18-2011 Hepatic function panel HEPATIC FUNCTION PANEL (30650) [facility]; [facility] Work Phone: Start: 09-18-2011 Lipid panel LIPID PANEL (41340) [facility] Work Phone: Start: 03-19-2011 Cyanocobalamin vitamin b-12 VITAMIN B-12 (CYANOCOBALAMIN) (59591) [facility]; [facility] Work Phone: Start: 03-19-2011 Iron binding capacity IRON BINDING CAPACITY (TIBC) (26950) [facility]; [facility] Work Phone: Start: 03-19-2011 Assay of ferritin FERRITIN (06452) [facility] Work Phone: Start: 03-19-2011 Assay of iron IRON (86511) [facility] Work Phone: Start: 03-19-2011 Blood count manual cell count each CBC WITH MANUAL DIFF (76778) [facility]; [facility] Work Phone: Start: 01-17-2011 Assay of prostate specific antigen total PSA (PROSTATE SPECIFIC ANTIGEN) (29444) [facility]; [facility] Work Phone: Start: 01-17-2011 Urinalysis qual/semiquant except immunoassays URINALYSIS (72374) [facility]; [facility] Work Phone: Start: 01-17-2011 Blood count manual cell count each CBC with manual diff (56664) [facility]; [facility] Work Phone: Start: 01-17-2011 Comprehensive metabolic panel Metabolic Panel, Comprehensive (67822) [facility]; [facility] Work Phone: Start: 01-17-2011 Lipid panel Lipid Panel (93452) [facility] Work Phone: Start: 01-03-2010 Comprehensive metabolic panel METABOLIC PANEL, COMPREHENSIVE (56436) [facility]; [facility] Work Phone: Start: 01-03-2010 Lipid panel LIPID PANEL (37405) [facility] Work Phone: Start: 09-28-2008 Hepatic function panel HEPATIC FUNCTION PANEL (92431) [facility]; [facility] Work Phone: Start: 09-28-2008 Lipid panel LIPID PANEL (06552) [facility] Work Phone: Start: 08-26-2008 Provider Instructions for Treatment Diet and Exercise [facility]; [facility] Work Phone: Start: 08-25-2008 Hepatic function panel HEPATIC FUNCTION PANEL (17374) [facility]; [facility] Work Phone: Start: 08-25-2008 Lipid panel LIPID PANEL (77112) [facility] Work Phone: Start: 08-25-2008 Assay of thyroid stimulating hormone tsh TSH (80784) [facility]; [facility] Work Phone: Start: 08-25-2008 Urnls dip stick/tablet rgnt auto w/o microscopy URINALYSIS W/O MICRO (25249) [facility]; [facility] Work Phone: Start: 08-25-2008 Comprehensive metabolic panel METABOLIC PANEL, COMPREHENSIVE (38447) [facility]; [facility] Work Phone: Start: 08-25-2008 Blood count manual cell count each CBC WITH MANUAL DIFF (88882) [facility]; [facility] Work Phone: Start: 04-26-2008 Urnls dip stick/tablet rgnt auto w/o microscopy URINALYSIS W/O MICRO (65940) [facility]; [facility] Work Phone: Start: 04-26-2008 Comprehensive metabolic panel METABOLIC PANEL, COMPREHENSIVE (65866) [facility]; [facility] Work Phone: Start: 04-26-2008 Blood count manual cell count each CBC WITH MANUAL DIFF (88974) [facility]; [facility] Work Phone: Start: 04-26-2008 Hepatic function panel HEPATIC FUNCTION PANEL (95553) [facility]; [facility] Work Phone: Start: 04-26-2008 Lipid panel LIPID PANEL (88314) [facility] Work Phone: Start: 10-21-2007 Hepatic function panel HEPATIC FUNCTION PANEL (85494) [facility]; [facility] Work Phone: Start: 10-21-2007 Lipid panel LIPID PANEL (47754) [facility] Work Phone: Start: 10-21-2007 Provider Instructions for Treatment Cholesterol - Medication Side Effects [facility]; [facility] Work Phone: Start: 07-29-2007 Provider Instructions for Treatment *URI Treatment [facility]; [facility] Work Phone: Start: 07-29-2007 Cul bact xcpt urine blood/stool aerobic isol AIDE CULTURE-OTHER (29591) [facility]; [facility] Work Phone: Start: 07-29-2007 Iaadiadoo streptococcus group a Rapid Strep Test, Office (81618) [facility]; [facility] Work Phone: Start: 08-13-2006 Hepatic function panel HEPATIC FUNCTION PANEL (70167) [facility]; [facility] Work Phone: Start: 08-13-2006 Lipid panel LIPID PANEL (67088) [facility] Work Phone: Start: 08-13-2006 Provider Instructions for Treatment FOLLOW UP IN 3 MONTHS [facility]; [facility] Work Phone: Start: 08-03-1999 Shingrix Vaccine (1 of 2) Shingrix Vaccine (1 of 2) [facility] Start: 1994 Screening for malignant neoplasm of colon [facility] Start: 1984 Lipid panel Lipid Screening [facility] Start: 1968 Zoster Vaccines (1 of 2) Zoster Vaccines (1 of 2) [facility] Start: 08-03-1967 Anxiety Screening Anxiety Screening [facility] Start: 08-03-1967 Depression Screening Depression Screening [facility] Start: 08-03-1967 Hepatitis C screening Hepatitis C Screening [facility] Start: 1954 COVID-19 Vaccine (#1) COVID-19 Vaccine (#1) [facility] Start: 1949 Abdominal aortic aneurysm screening Abdominal Aortic Aneurysm Screening [facility] Cortisol [Mass/volum e] in Serum or Plasma [facility] CT Abdomen and Pelvi s W contrast IV [facility] CT Abdomen and Pelvi s W contrast IV [facility] CT Abdomen and Pelvi s W contrast IV [facility] Ferritin [Mass/volum e] in Serum or Plasma [facility] Iron [Mass/mass] in Unspecified specimen [facility] Iron and Iron bindin g capacity panel - Serum or Plasma [facility] Iron saturation [Mas s Fraction] in Serum or Plasma [facility] Patient Education ED Abdominal P ain Gallstone Poss [facility] Work Phone: Patient referral [facility] Work Phone: Serum inorganic phosphate measurement [facility] Serum inorganic phosphate measurement [facility] Thyroid stimulating hormone measurement [facility] Total iron binding capacity measurement [facility] Vitamin B12 measurement [facility] Work Phone: [facility] Work Phone: [facility] Work Phone: [facility] Work Phone: [facility] Work Phone: [facility] Work Phone: [facility] Work Phone: [facility] Work Phone: [facility] Work Phone: [facility] Work Phone: Payers Date Payer Category Payer Self-pay [id number] 2024 Medicare (Managed Care) MMO MEJIA DVANTAGE HMO [id number] 2024 Unknown [id number] 2020 Private Health Insurance JOANNMARIA ELENA Garcia pj [id number] 2020 Private Health Insurance [id number] 2013 Self-pay [id number] 2013 Unknown [id number] Unknown Unknown [id number] 2..1.884561.3.579 .2.462 Unknown [id number] .1.657383.3.579 .2.462 Unknown [id number] 2..1.989209.3.579 .2.462 Unknown [id number] 2.0.1.092188.3.579 .2.462 Unknown [id number] 2.0.1.621920.3.579 .2.462 Unknown [id number] 2.0.1.233287.3.579 .2.462 Unknown [id number] 2.16.840.1.118682.3.579 .2.462 Unknown [id number] 2.16.840.1.228971.3.579 .2.462 Unknown [id number] 2.16.840.1.207595.3.579 .2.462 Unknown [id number] 2.16.840.1.802641.3.579 .2.462 Unknown [id number] 2.16840.1.632307.3.579 .2.462 Unknown [id number] 2.16840.1.891957.3.579 .2.462 Unknown [id number] 2.16840.1.549625.3.579 .2.462 Unknown [id number] 2.16840.1.441836.3.579 .2.462 Unknown [id number] 2.16840.1.264033.3.579 .2.462 Unknown [id number] 2.16840.1.874353.3.579 .2.462 Unknown [id number] 2.16840.1.112622.3.579 .2.462 Unknown [id number] 2.16840.1.698707.3.579 .2.462 Unknown [id number] 2.16840.1.752506.3.579 .2.462 Unknown [id number] 2.16840.1.087255.3.579 .2.462 Unknown [id number] 2.16840.1.355292.3.579 .2.462 Unknown [id number] 2.16.840.1.306483.3.579 .2.462 Unknown [id number] 2.16840.1.490592.3.579 .2.462 Unknown [id number] 2.16840.1.201774.3.579 .2.462 Unknown [id number] 2.16.840.1.703349.3.579 .2.462 Unknown [id number] 2.16.840.1.660261.3.579 .2.462 Unknown [id number] 2.16.840.1.604868.3.579 .2.462 Unknown [id number] 2.16.840.1.909290.3.579 .2.462 Unknown [id number] 2.16.840.1.578527.3.579 .2.462 Unknown [id number] 2.16.840.1.312146.3.579 .2.462 Unknown [id number] 2.16.840.1.106667.3.579 .2.462 Unknown [id number] 2.16.840.1.326182.3.579 .2.462 Social History Date Type Detail Facility Start: 02-27-2011 End: 07-15-2024 Alcohol Use Alcohol Use [facility] Work Phone: Comment on above: Occasional alcohol u se 4 QD Walks 1/2 Hr QD , heterosexua l [employer] occasional ly Tobacco use: Tobacco use: [facility] Work Phone: Start: 12-05-2021 End: 03-11-2023 Tobacco smoking status [facility] Unknown if ever smoked [facility] Start: 1950 Sex Assigned At Male [facility] Start: 02-27-2011 End: 07-28-2024 Tobacco smoking status NHIS Ex-smoker [facility] Start: 05-27-1964 End: 05-27-1979 History of tobacco use Current smoker [facility] Start: 05-27-1964 End: 05-27-1979 History of tobacco use Cigarette Smoker [facility] Start: 01-14-2013 Alcoholic beverage intake Current drinker of alcohol (finding) [facility] Start: 07-15-2024 Area Deprivation Index [facility] National Score (1-10 0), lower number is lower risk 80 [facility] Start: 1950 Sex assigned at Not on file [facility] Start: 07-30-2024 End: 09-18-2024 Sex Male (finding) [facility] Medical Equipment Procedure Code Equipment Code Equipment Origin al Text Equipment Identifier Dates Insertion, vascular access port ([id number]) Vascular port/catheter [id number] FDA Start: 07-30-2024 Goals Date Patient Goal Desired Activity /State Mental Status Date Assessment Result Facility 08-12-2024 Cognitive function Awake;Alert;A ppropriate;Fo llows Commands [facility] Work Phone: 07-30-2024 Cognitive function Voice/Name [facility] Work Phone: Clinical Notes 07-15-2024 to 03-09-2025 Note Date & Type Note Facility 03-09-2025 Progress note [facility] 02-16-2025 Progress note [facility] 02-02-2025 Progress note [facility] 02-02-2025 Progress note Note Date/Time February 02, 2025 10:11am [facility] [address] [address] OFFICE VISIT Date of Service: 02/02/25919 MR#: [id number] Acct: [id number] Name: AAMDO GALLARDO Rep #: [id number] : 1950 From: Laurie Keller ch 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 June 15, 2024 CT chest abdomen and pelvis: IMPRESSION: Multiple new pulmonary nodules measuring up to 10 mm, concerning for pulmonary metastases. Mild pneumonia or pneumonitis in the lower lobes. Mild left supraclavicular and mediastinal lymphadenopathy, also concerning for metastasis. Multiple new liver masses, concerning for metastases. 1.5 cm pancreatic mass, suspicious for malignancy with mild retroperitoneal lymphadenopathy. Cholelithiasis. Right nephrolithiasis. June 23, 2024 upper EUS: Impression: 2 cm hypoechoic echoic mass was identified in the pancreatic body stage T2 N2 byEndo sonographic criteria. FNA obtained. A mass was found at the GE junction, tissue was obtained stage T3 N3 by endosonography criteria At least 2 suspected metastatic lesions in the liver. Many malignant appearing lymph nodes visualized in the lower paraesophageal mediastinum, gastrohepatic ligament, celiac region and peripancreatic region. June 25, 2024 pathology: EUS FNA pancreatic body mass malignant cells present the right from adenocarcinoma. Distal esophagus mass biopsy: Invasive moderate to poorly differentiated adenocarcinoma PD-L1 analysis GE junction adenocarcinoma, expressed (15) HER2 2+ by IHC, negative by FISH June 25, 2024 PET/CT initial stagin. Large intense metabolic mass at the GE junction extending to involve the adjacent stomach noted. This is highly suspicious for primary malignancy. 2. Extensive metastases involving bilateral lung parenchyma, right and left hepatic lobes noted. 3. Intense metabolic left supraclavicular node mediastinal and retroperitoneal nodes suspicious for metastasis. 4. Intense metabolic mass that appears to be within the body of the pancreas issuspicious for malignancy or metastases although cannot exclude meka metastasis. 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 October 21, 2024 CT chest abdomen and pelvis: IMPRESSION: Since prior study, there has been almost complete clearing of the previously seen nodules in the lower lobes of both lungs as well as the liver metastasis. Improvement of the hypodense lesion in the body of the pancreas. Gallstones. January 15, 2025 chest abdomen and pelvis CT: IMPRESSION: Increased airspace disease in the right lower lobe with areas of bronchiectasis and small cyst formation suggestive of possible scarring. Stable hypodensities in the liver. Treatment summary and response: FOLFOX nivolumab August 04, 2024-ID. Interval History The patient is presenting to clinic today anticipating he will begin cycle 14 FOLFOX and nivolumab. He denies any concerns r/t today's visit. Continues to take senna/colace for 2 days prior and through day 3 of each treatment cycle with positive results. LBM yesterday morning. No abd pain. Appetite good, PO fluid intake described as adequate. 3 bottles ofEnsure daily. + mild numbness/tingling fingertips bilat now occurring outside of cold exposure. Not interfering with ADLs but describes as more frequent. Specifically denies fever/chills, sweats, headaches, dizziness, CP, palpitations, cough, SOB, abd pain, N/V/D, swelling/pain of his extremities. 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 Regional lymph node metastasis present Esophageal cancer Pancreatic cancer CAD (coronary artery disease) Cough with hemoptysis Wears glasses Prostate disease High cholesterol Former smoker History of echocardiogram Cardiology follow-up encounter Screen for colon cancer Hepatic cyst Carotid artery stenosis Dyspnea Anemia, mild Atonic bladder BPH (benign prostatic hyperplasia) Hyperlipidemia Hemoptysis Surgical History History of foot surgery History of colonoscopy (~2007) Family History Father Heart disease CHF (congestive heart failure) Myocardial infarction 60 Mother Heart disease CHF (congestive heart failure) Brother CAD (coronary artery disease), Onset Age: 40 stent placement Bladder cancer Brother CVA (cerebral vascular accident) Social History Smoking Status: Former smoker alcohol intake: current alcohol intake frequency: a few times a week Alcohol type: beer substance use type: does not use caffeine: Yes Type: coffee Number of servings: 1 what type of physical activity do you participate in: walking frequency: daily duration: 30-45 minutes/day ROS ROS Narrative Negative except as documented in the interval HPI Intake Vital Signs 01/19/25 09:45 02/02/25 09:21 Height 5 ft 10 in 5 ft 10 in Weight: 125 lb 9 oz BMI 18.0 BP 118/75 Blood Pressure Location Lt brachial Position Sitting Respiration 16 Pulse 75 Pulse Source Monitor Temp 98.4 F Temperature Source Temporal Artery Pulse Oximetry (%) 96 Oxygen Delivery Method room air Intake Is patient in pain?: No Allergies No Known Allergies Allergy (Verified 09/09/25 09:26) Medications ?Medication ?Instructions ?Recorded ?Confirmed ?Type atorvastatin 40 mg tablet 40 mg PO DAILY 01/12/2102/18 History latanoprost 0.005 % eye drops 1 drp ophthalmic (eye) Q DAY 07/14/24 02/02/25 History lidocaine-prilocaine 2.5 %-2.5 % 1 applic topical ONCE PRN port 07/27/24 02/02/25 Rx topical cream access 30 days #30 grams ondansetron 8 mg disintegrating 8 mg PO Q8H PRN nausea and 07/27/24 02/02/25 Rx tablet vomiting #30 tabs prochlorperazine maleate 10 mg 10 mg PO Q6H PRN nausea and 07/27/24 02/02/25 Rx tablet vomiting #30 tabs oxycodone-acetaminophen 5 mg-325 1 tab PO Q8H PRN pain 3 days #5 07/30/24 02/02/25 Rx mg tablet (Percocet) tabs MAGIC MOUTH WASH (BMX) 180 mL 15 ml PO Q4H PRN Pain #1 80 mL 08/04/24 02/02/25 Rx suspension nystatin 100,000 unit/mL oral 5 ml PO TID #473 mL 08/2602/02/25 Rx suspension Have you fallen in the past year?: No Central Venous Access Central Venous Access: Yes Port/PICC: Port Laboratory Tests 02/02/25 08:43 WBC 4.4 Hgb 9.2 L Hct 27.6 L Plt Count 255 Sodium 138 Potassium 4.2 Chloride 102 Carbon Dioxide 25.4 BUN 19 Creatinine 0.62 L Glucose 127 H Calcium 9.2 Magnesium 2.5 H Total Bilirubin 0.66 AST 38 ALT 33 Alkaline Phosphatase 131 H Albumin 4.0 Exam Physical Exam Narrative ECOG 1 Const alert, oriented x3 and no apparent distress HEENT Face and Sinus: normal facial exam Mouth: oral and palatal mucosa normal and No thrush Eyes General Eye: normal appearance of both eyes Neck no lymphadenopathy and no JVD Chest Chest: vascular access Resp clear to auscultation bilaterally Cardio regular rate and regular rhythm Jugular Venous Distention: Negative for JVD GI soft to palpation, non-tender and non-distended; Negative for hepatosplenomegaly Back/Spine no thoracic nor lumbar tenderness Extremity no clubbing, cyanosis or edema Extremity Narrative: Right ankle brace Skin no rashes or lesions noted Neuro oriented x3, CN's II-XII intact bilaterally, moves all extremities and no focal motor deficits Speech: speech normal Gait (Neuro): normal gait Psych mental status grossly normal Coding Level of Care Code Off vis,est,level 4 Exam Problem Focused Diagnoses Malignant neoplasm of lower third of esophagus C15.5 Malignant neoplasm of esophagus location: lower third Regional lymph node metastasis present C77.9 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; C78.02 Metastasis to liver C78.7 Malignant neoplasm of body of pancreas C25.1 Pancreatic malignancy location: body of pancreas Encounter for chemotherapy management Z51.11 Encounter for antineoplastic immunotherapy Z51.12 Assessment and Plan Assessment and Plan (1) Esophageal cancer: Status: Chronic Qualifiers: Malignant neoplasm of esophagus location: lower third Qualified Code(s): C15.5 - Malignant neoplasm of lower third of esophagus (2) Regional lymph node metastasis present: Status: Chronic (3) 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 Tumor is HER2 not overexpressed (IHC 2+ FISH negative) and PD-L1 over 1. An adenocarcinoma pathologically confirmed by FNA from the body of the pancreas in my opinion more likely metastases to adjacent lymph nodes rather than a second primary The distinction is only of academic interest but has no clinical implications. Patient presented with several months of increasing dysphagia, epigastric discomfort and weight loss. Patient is anemic most likely due to cancer and chronic GI blood loss from the esophageal carcinoma. Started combination chemotherapy immunotherapy with modified FOLFOX 6 nivolumab August 04, 2024. Treatment is tolerated with no grade 3 or 4 toxicities the patient is subjectively and objectively responding. He has a grade 1 peripheral neuropathynot interfering with function. Imaging in September and December 2024 shows significant remission of his disease. Chronic comorbid conditions: Coronary artery disease, cerebrovascular disease, dyslipidemia. Plan: Based on NCCN guidelines and up-to-date review of management of metastaticadenocarcinoma of the GE junction with a palliative intent plus or minus a modest survival benefit. 1. Continue combination systemic therapy with FOLFOX and nivolumab. Proceed with c14 today. 2. Anemia; of cancer and chemotherapy no evidence for iron deficiency supportive transfusion to maintain hemoglobin above 7 g per DL. Hgb stable. Iron studies pending. 3. Neuropathy- involving fingertips and toes bilat. Grade 1. Continue to monitor. 4. Elective imaging with CT scan of the chest and abdomen/pelvis every 3-4 months next to schedule end of April 2025. Clinical Quality Measures Falls Risk Screening/Assistive Devices Have you fallen in the past year?: No 02/02/25 1011 <Electronically signed by Laurie CORONA> Date _ Laurie CORONA Cosigner Signature: Date (if applicable) CC: ~ [facility] Work Phone: 1(570) 843-284808-26-2025 Progress [facility] [address] [address] OFFICE VISIT Date of Service: 01/19/2534 MR#: [id number] Acct: [id number] Name: AMADO GALLARDO Rep #: [id number] : 1950 From: Zulay wills MD Age/Sex: 74/M Location: [facility] [place] Status: Signed HPI Subjective Date of Service 01/19/25 Chief Complaint Metastatic esophageal cancer History of Present Illness 74-year-old gentleman, who experienced increasing dysphagia, epigastric discomfort and 25 pound weight loss with onset around December 2023. June 15, 2024 CT chest abdomen and pelvis: IMPRESSION: Multiple new pulmonary nodules measuring up to 10 mm, concerning for pulmonary metastases. Mild pneumonia or pneumonitis in the lower lobes. Mild left supraclavicular and mediastinal lymphadenopathy, also concerning for metastasis. Multiple new liver masses, concerning for metastases. 1.5 cm pancreatic mass, suspicious for malignancy with mild retroperitoneal lymphadenopathy. Cholelithiasis. Right nephrolithiasis. June 23, 2024 upper EUS: Impression: 2 cm hypoechoic echoic mass was identified in the pancreatic body stage T2 N2 byEndo sonographic criteria. FNA obtained. A mass was found at the GE junction, tissue was obtained stage T3 N3 by endosonography criteria At least 2 suspected metastatic lesions in the liver. Many malignant appearing lymph nodes visualized in the lower paraesophageal mediastinum, gastrohepatic ligament, celiac region and peripancreatic region. June 25, 2024 pathology: EUS FNA pancreatic body mass malignant cells present the right from adenocarcinoma. Distal esophagus mass biopsy: Invasive moderate to poorly differentiated adenocarcinoma PD-L1 analysis GE junction adenocarcinoma, expressed (15) HER2 2+ by IHC, negative by FISH June 25, 2024 PET/CT initial stagin. Large intense metabolic mass at the GE junction extending to involve the adjacent stomach noted.This is highly suspicious for primary malignancy. 2. Extensive metastases involving bilateral lung parenchyma, right and left hepatic lobes noted. 3. Intense metabolic left supraclavicular node mediastinal and retroperitoneal nodes suspicious formetastasis. 4. Intense metabolic mass that appears to be within the body of the pancreas issuspicious for malignancy or metastases although cannot exclude meka metastasis. 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 October 21, 2024 CT chest abdomen and pelvis: IMPRESSION: Since prior study, there has been almost complete clearing of the previously seen nodules in the lower lobes of both lungs as well as the liver metastasis. Improvement of the hypodense lesion in the body of the pancreas. Gallstones. January 15, 2025 chest abdomen and pelvis CT: IMPRESSION: Increased airspace disease in the right lower lobe with areas of bronchiectasis and small cyst formation suggestive of possible scarring. Stable hypodensities in the liver. Treatment summary and response: FOLFOX nivolumab August 04, 2024-ID. 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 Regional lymph node metastasis present Esophageal cancer Pancreatic cancer CAD (coronary artery disease) Cough with hemoptysis Wears glasses Prostate disease High cholesterol Former smoker History of echocardiogram Cardiology follow-up encounter Screen for colon cancer Hepatic cyst Carotid artery stenosis Dyspnea Anemia, mild Atonic bladder BPH (benign prostatic hyperplasia) Hyperlipidemia Hemoptysis Surgical History History of foot surgery History of colonoscopy (~2007) Family History Father Heart disease CHF (congestive heart failure) Myocardial infarction 60 Mother Heart disease CHF (congestive heart failure) Brother CAD (coronary artery disease), Onset Age: 40 stent placement Bladder cancer Brother CVA (cerebral vascular accident) Social History Smoking Status: Former smoker alcohol intake: current alcohol intake frequency: a few times a week Alcohol type: beer substance use type: does not use caffeine: Yes Type: coffee Number of servings: 1 what type of physical activity do you participate in: walking frequency: daily duration: 30-45 minutes/day ROS ROS Narrative I feel a lot better Constitutional Constitutional: Reports systems reviewed and no addt'l complaints, except as documented, fatigue and other Details: Last fatigue, able to do ADL and house duties at own pace ; Denies anorexia, fever(s), night sweats or weight loss Eyes Eyes: Reports systems reviewed and no addt'l complaints, except as documented ENT HEENT: Reports systems reviewed and no addt'l complaints, except as documented and other Details: Mouth lesions managed with BMX ; Denies mouth lesions Cardiovascular Cardiovascular: Reports systems reviewed and no addt'l complaints, except as documented; Denies chest pain with activity or edema Respiratory/Chest Respiratory/Chest: Reports systems reviewed and no addt'l complaints, except as documented; Denies cough, dyspnea on exertion or hemoptysis Gastrointestinal Gastrointestinal: Reports systems reviewed and no addt'l complaints, except as documented and constipation; Denies abdominal pain, anorexia, change in stool character, dysphagia, heartburn, hematochezia, melena, nausea or vomiting Genitourinary Genitourinary: Reports systems reviewed and no addt'l complaints, except as documented Musculoskeletal Musculoskeletal: Reports systems reviewed and no addt'l complaints, except as documented and other Details: A chronic injury of the right ankle, wears a brace; Denies back pain Integumentary Integumentary: Reports systems reviewed and no addt'l complaints, except as documented; Denies new lesions Neurologic Neurologic: Reports systems reviewed and no addt'l complaints, except as documented and paresthesias RUE and LUE (Paresthesias not interfering with function); Denies focal weakness Psychiatric Psychiatric: Reports systems reviewed and no addt'l complaints, except as documented Endocrine Endocrinology: Reports systems reviewed and no addt'l complaints, except as documented Hematologic/Lymphatic Hematologic/Lymphatic: Reports systems reviewed and no addt'l complaints, exceptas documented; Denies easy bleeding, easy bruising or lymphadenopathy Intake Vital Signs 12/08/24 09:24 01/19/25 09:35 01/19/25 09:45 Height 5 ft 10 in 5 ft 10 in 5 ft 10 in Weight: 56.756 kg BMI 17.9 BP 103/67 Blood Pressure Location Lt brachial Position Sitting Respiration 18 Pulse 73 Pulse Source Monitor Temp 98.2 F Temperature Source Temporal Artery Pulse Oximetry (%) 94 Oxygen Delivery Method room air Intake Is patient in pain?: No Allergies No Known Allergies Allergy (Verified 01/19/25 09:43) Medications ?Medication ?Instructions ?Recorded ?Confirmed ?Type atorvastatin 40 mg tablet 40 mg PO DAILY 01/12/2112/26 History latanoprost 0.005 % eye drops 1 drp ophthalmic (eye) Q DAY 07/14/24 01/19/25 History lidocaine-prilocaine 2.5 %-2.5 % 1 applic topical ONCE PRN port 07/27/24 01/19/25 Rx topical cream access 30 days #30 grams ondansetron 8 mg disintegrating 8 mg PO Q8H PRN nausea and 07/27/24 01/19/25 Rx tablet vomiting #30 tabs prochlorperazine maleate 10 mg 10 mg PO Q6H PRN nausea and 07/27/24 01/19/25 Rx tablet vomiting #30 tabs oxycodone-acetaminophen 5 mg-325 1 tab PO Q8H PRN pain 3 days #5 07/30/24 01/19/25 Rx mg tablet (Percocet) tabs MAGIC MOUTH WASH (BMX) 180 mL 15 ml PO Q4H PRN Pain #1 80 mL 08/04/24 01/19/25 Rx suspension nystatin 100,000 unit/mL oral 5 ml PO TID #473 mL 08/2601/19/25 Rx suspension Have you fallen in the past year?: No Central Venous Access Central Venous Access: Yes Port/PICC: Port CBC, CMP January 19, 2025 reviewed in EMR Exam Physical Exam Narrative ECOG 1 Const alert, oriented x3 and no apparent distress HEENT Face and Sinus: normal facial exam Mouth: oral and palatal mucosa normal and No thrush Eyes General Eye: normal appearance of both eyes Neck no lymphadenopathy and no JVD Chest Chest: vascular access Resp clear to auscultation bilaterally Cardio regular rate and regular rhythm Jugular Venous Distention: Negative for JVD GI soft to palpation, non-tender and non-distended; Negative for hepatosplenomegaly Back/Spine no thoracic nor lumbar tenderness Extremity no clubbing, cyanosis or edema Extremity Narrative: Right ankle brace Skin no rashes or lesions noted Neuro oriented x3, CN's II-XII intact bilaterally, moves all extremities and no focal motor deficits Coordination / Balance: [id number] test normal Speech: speech normal Gait (Neuro): normal gait Psych mental status grossly normal Coding Level of Care Code Off vis,est,level 4 Exam Problem Focused Diagnoses Malignant neoplasm of lower third of esophagus C15.5 Malignant neoplasm of esophagus location: lower third Regional lymph node metastasis present C77.9 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; C78.02 Metastasis to liver C78.7 Malignant neoplasm of body of pancreas C25.1 Pancreatic malignancy location: body of pancreas Assessment and Plan Assessment and Plan (1) Esophageal cancer: Status: Chronic Qualifiers: Malignant neoplasm of esophagus location: lower third Qualified Code(s): C15.5 - Malignant neoplasmof lower third of esophagus (2) Regional lymph node metastasis present: Status: Chronic (3) 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 Tumor is TAI3dtr overexpressed (IHC 2+ FISH negative) and PD-L1 over 1. An adenocarcinoma pathologically confirmed by FNA from the body of the pancreas in my opinion more likely metastases to adjacent lymph nodesrather than a second primary The distinction is only of academic interest but has no clinical implications. Patient presented with several months of increasing dysphagia, epigastric discomfort and weight loss. Patient is anemic most likely due to cancer and chronic GI blood loss from the esophageal carcinoma. Started combination chemotherapy immunotherapy with modified FOLFOX 6 nivolumab August 04, 2024. Treatment is tolerated with no grade 3 or 4 toxicities the patient is subjectively and objectively responding. He has a grade 1 peripheral neuropathynot interfering with function. Imaging in September and December 2024 shows significant remission of his disease. Chronic comorbid conditions: Coronary artery disease, cerebrovascular disease, dyslipidemia. Plan: Based on NCCN guidelines and up-to-date review of management of metastaticadenocarcinoma of the GE junction with a palliative intent plus or minus a modest survival benefit. 1. Continue combination systemic therapy with FOLFOX and nivolumab. 2. Anemia; of cancer and chemotherapy no evidence for iron deficiency supportive transfusion to maintain hemoglobin above 7 g per DL. 3. Nutrition consulted and patient was also referred to palliative care. 4. Elective imaging with CT scan of the chest and abdomen/pelvis every 3-4 months next to schedule end of April 2025. Patient was seen, impression and plan discussed. Zulay Celis MD Straight Knife Machine Cutter, [facility] Divisions of Medical Oncology & Hematology Department of Internal Medicine [place] [id number] This note was generated using a voice recognition system software. Although itwas reviewed by the author prior to finalization, it may still contain incorrectwords, spelling, and punctuation that were not noted when reviewing prior to saving. If a clinically significant typo or inaccurately typed phrase is noted, please notify the author. Clinical Quality Measures Falls Risk Screening/Assistive Devices Have you fallen in the past year?: No 01/19/25 1014 alma AVINA> Date _ Zulay Celis MD Cosigner Signature: Date (if applicable) CC: [facility]08-26-2025 Progress note Author Zulay Celis [facility] Note Date/Time January 19, 2025 10 :14am [facility] [place] [facility] [address] [address] OFFICE VISIT Date of Service: 01/19/2534 MR#: [id number] Acct: [id number] Name: AMADO GALLARDO Rep #: [id number] : 1950 From: Zulay wills MD Age/Sex: 74/M Location: [facility] [place] Status: Signed HPI Subjective Date of Service 01/19/25 Chief Complaint Metastatic esophageal cancer History of Present Illness 74-year-old gentleman, who experienced increasing dysphagia, epigastric discomfort and 25 pound weight loss with onset around December 2023. June 15, 2024 CT chest abdomen and pelvis: IMPRESSION: Multiple new pulmonary nodules measuring up to 10 mm, concerning for pulmonary metastases. Mild pneumonia or pneumonitis in the lower lobes. Mild left supraclavicular and mediastinal lymphadenopathy, also concerning for metastasis. Multiple new liver masses, concerning for metastases. 1.5 cm pancreatic mass, suspicious for malignancy with mild retroperitoneal lymphadenopathy. Cholelithiasis. Right nephrolithiasis. June 23, 2024 upper EUS: Impression: 2 cm hypoechoic echoic mass was identified in the pancreatic body stage T2 N2 byEndo sonographic criteria. FNA obtained. A mass was found at the GE junction, tissue was obtained stage T3 N3 by endosonography criteria At least 2 suspected metastatic lesions in the liver. Many malignant appearing lymph nodes visualized in the lower paraesophageal mediastinum, gastrohepatic ligament, celiac region and peripancreatic region. June 25, 2024 pathology: EUS FNA pancreatic body mass malignant cells present the right from adenocarcinoma. Distal esophagus mass biopsy: Invasive moderate to poorly differentiated adenocarcinoma PD-L1 analysis GE junction adenocarcinoma, expressed (15) HER2 2+ by IHC, negative by FISH June 25, 2024 PET/CT initial stagin. Large intense metabolic mass at the GE junction extending to involve the adjacent stomach noted. This is highly suspicious for primary malignancy. 2. Extensive metastases involving bilateral lung parenchyma, right and left hepatic lobes noted. 3. Intense metabolic left supraclavicular node mediastinal and retroperitoneal nodes suspicious for metastasis. 4. Intense metabolic mass that appears to be within the body of the pancreas issuspicious for malignancy or metastases although cannot exclude meka metastasis. 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 October 21, 2024 CT chest abdomen and pelvis: IMPRESSION: Since prior study, there has been almost complete clearing of the previously seen nodules in the lower lobes of both lungs as well as the liver metastasis. Improvement of the hypodense lesion in the body of the pancreas. Gallstones. January 15, 2025 chest abdomen and pelvis CT: IMPRESSION: Increased airspace disease in the right lower lobe with areas of bronchiectasis and small cyst formation suggestive of possible scarring. Stable hypodensities in the liver. Treatment summary and response: FOLFOX nivolumab August 04, 2024-ID. 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 Regional lymph node metastasis present Esophageal cancer Pancreatic cancer CAD (coronary artery disease) Cough with hemoptysis Wears glasses Prostate disease High cholesterol Former smoker History of echocardiogram Cardiology follow-up encounter Screen for colon cancer Hepatic cyst Carotid artery stenosis Dyspnea Anemia, mild Atonic bladder BPH (benign prostatic hyperplasia) Hyperlipidemia Hemoptysis Surgical History History of foot surgery History of colonoscopy (~2007) Family History Father Heart disease CHF (congestive heart failure) Myocardial infarction 60 Mother Heart disease CHF (congestive heart failure) Brother CAD (coronary artery disease), Onset Age: 40 stent placement Bladder cancer Brother CVA (cerebral vascular accident) Social History Smoking Status: Former smoker alcohol intake: current alcohol intake frequency: a few times a week Alcohol type: beer substance use type: does not use caffeine: Yes Type: coffee Number of servings: 1 what type of physical activity do you participate in: walking frequency: daily duration: 30-45 minutes/day ROS ROS Narrative I feel a lot better Constitutional Constitutional: Reports systems reviewed and no addt'l complaints, except as documented, fatigue and other Details: Last fatigue, able to do ADL and house duties at own pace ; Denies anorexia, fever(s), night sweats or weight loss Eyes Eyes: Reports systems reviewed and no addt'l complaints, except as documented ENT HEENT: Reports systems reviewed and no addt'l complaints, except as documented and other Details: Mouth lesions managed with BMX ; Denies mouth lesions Cardiovascular Cardiovascular: Reports systems reviewed and no addt'l complaints, except as documented; Denies chest pain with activity or edema Respiratory/Chest Respiratory/Chest: Reports systems reviewed and no addt'l complaints, except as documented; Denies cough, dyspnea on exertion or hemoptysis Gastrointestinal Gastrointestinal: Reports systems reviewed and no addt'l complaints, except as documented and constipation; Denies abdominal pain, anorexia, change in stool character, dysphagia, heartburn, hematochezia, melena, nausea or vomiting Genitourinary Genitourinary: Reports systems reviewed and no addt'l complaints, except as documented Musculoskeletal Musculoskeletal: Reports systems reviewed and no addt'l complaints, except as documented and other Details: A chronic injury of the right ankle, wears a brace; Denies back pain Integumentary Integumentary: Reports systems reviewed and no addt'l complaints, except as documented; Denies new lesions Neurologic Neurologic: Reports systems reviewed and no addt'l complaints, except as documented and paresthesias RUE and LUE (Paresthesias not interfering with function); Denies focal weakness Psychiatric Psychiatric: Reports systems reviewed and no addt'l complaints, except as documented Endocrine Endocrinology: Reports systems reviewed and no addt'l complaints, except as documented Hematologic/Lymphatic Hematologic/Lymphatic: Reports systems reviewed and no addt'l complaints, exceptas documented; Denies easy bleeding, easy bruising or lymphadenopathy Intake Vital Signs 12/08/24 09:24 01/19/25 09:35 01/19/25 09:45 Height 5 ft 10 in 5 ft 10 in 5 ft 10 in Weight: 56.756 kg BMI 17.9 BP 103/67 Blood Pressure Location Lt brachial Position Sitting Respiration 18 Pulse 73 Pulse Source Monitor Temp 98.2 F Temperature Source Temporal Artery Pulse Oximetry (%) 94 Oxygen Delivery Method room air Intake Is patient in pain?: No Allergies No Known Allergies Allergy (Verified 01/19/25 09:43) Medications ?Medication ?Instructions ?Recorded ?Confirmed ?Type atorvastatin 40 mg tablet 40 mg PO DAILY 01/12/2112/26 History latanoprost 0.005 % eye drops 1 drp ophthalmic (eye) Q DAY 07/14/24 01/19/25 History lidocaine-prilocaine 2.5 %-2.5 % 1 applic topical ONCE PRN port 07/27/24 01/19/25 Rx topical cream access 30 days #30 grams ondansetron 8 mg disintegrating 8 mg PO Q8H PRN nausea and 07/27/24 01/19/25 Rx tablet vomiting #30 tabs prochlorperazine maleate 10 mg 10 mg PO Q6H PRN nausea and 07/27/24 01/19/25 Rx tablet vomiting #30 tabs oxycodone-acetaminophen 5 mg-325 1 tab PO Q8H PRN pain 3 days #5 07/30/24 01/19/25 Rx mg tablet (Percocet) tabs MAGIC MOUTH WASH (BMX) 180 mL 15 ml PO Q4H PRN Pain #1 80 mL 08/04/24 01/19/25 Rx suspension nystatin 100,000 unit/mL oral 5 ml PO TID #473 mL 08/2601/19/25 Rx suspension Have you fallen in the past year?: No Central Venous Access Central Venous Access: Yes Port/PICC: Port CBC, CMP January 19, 2025 reviewed in EMR Exam Physical Exam Narrative ECOG 1 Const alert, oriented x3 and no apparent distress HEENT Face and Sinus: normal facial exam Mouth: oral and palatal mucosa normal and No thrush Eyes General Eye: normal appearance of both eyes Neck no lymphadenopathy and no JVD Chest Chest: vascular access Resp clear to auscultation bilaterally Cardio regular rate and regular rhythm Jugular Venous Distention: Negative for JVD GI soft to palpation, non-tender and non-distended; Negative for hepatosplenomegaly Back/Spine no thoracic nor lumbar tenderness Extremity no clubbing, cyanosis or edema Extremity Narrative: Right ankle brace Skin no rashes or lesions noted Neuro oriented x3, CN's II-XII intact bilaterally, moves all extremities and no focal motor deficits Coordination / Balance: [id number] test normal Speech: speech normal Gait (Neuro): normal gait Psych mental status grossly normal Coding Level of Care Code Off vis,est,level 4 Exam Problem Focused Diagnoses Malignant neoplasm of lower third of esophagus C15.5 Malignant neoplasm of esophagus location: lower third Regional lymph node metastasis present C77.9 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; C78.02 Metastasis to liver C78.7 Malignant neoplasm of body of pancreas C25.1 Pancreatic malignancy location: body of pancreas Assessment and Plan Assessment and Plan (1) Esophageal cancer: Status: Chronic Qualifiers: Malignant neoplasm of esophagus location: lower third Qualified Code(s): C15.5 - Malignant neoplasm of lower third of esophagus (2) Regional lymph node metastasis present: Status: Chronic (3) 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 Tumor is HER2 not overexpressed (IHC 2+ FISH negative) and PD-L1 over 1. An adenocarcinoma pathologically confirmed by FNA from the body of the pancreas in my opinion more likely metastases to adjacent lymph nodes rather than a second primary The distinction is only of academic interest but has no clinical implications. Patient presented with several months of increasing dysphagia, epigastric discomfort and weight loss. Patient is anemic most likely due to cancer and chronic GI blood loss from the esophageal carcinoma. Started combination chemotherapy immunotherapy with modified FOLFOX 6 nivolumab August 04, 2024. Treatment is tolerated with no grade 3 or 4 toxicities the patient is subjectively and objectively responding. He has a grade 1 peripheral neuropathynot interfering with function. Imaging in September and December 2024 shows significant remission of his disease. Chronic comorbid conditions: Coronary artery disease, cerebrovascular disease, dyslipidemia. Plan: Based on NCCN guidelines and up-to-date review of management of metastaticadenocarcinoma of the GE junction with a palliative intent plus or minus a modest survival benefit. 1. Continue combination systemic therapy with FOLFOX and nivolumab. 2. Anemia; of cancer and chemotherapy no evidence for iron deficiency supportive transfusion to maintain hemoglobin above 7 g per DL. 3. Nutrition consulted and patient was also referred to palliative care. 4. Elective imaging with CT scan of the chest and abdomen/pelvis every 3-4 months next to schedule end of April 2025. Patient was seen, impression and plan discussed. Zulay Celis MD Straight Knife Machine Cutter, [facility] Divisions of Medical Oncology & Hematology Department of Internal Medicine [place] [phone] This note was generated using a voice recognition system software. Although itwas reviewed by the author prior to finalization, it may still contain incorrectwords, spelling, and punctuation that were not noted when reviewing prior to saving. If a clinically significant typo or inaccurately typed phrase is noted, please notify the author. Clinical Quality Measures Falls Risk Screening/Assistive Devices Have you fallen in the past year?: No 01/19/25 1014 <Electronically signed by Zulay marquez MD> Date _ Zulay Celis MD Cosigner Signature: Date (if applicable) CC: [facility] Work Phone: [phone] 184-746708-25-2025 Radiology Diagnostic study note [facility] Imaging Services [address] [place] [address] CT Chest, Abd, Pel w/Contrast MR#: [id number] Acct: [id number] Name: AMADO GALLARDO Rep #: [id number] : 1950 M 74 From: Lamont Gómez MD PCP: [facility] Status: REG CLI Study:CT Chest, Abd, Pel w/Contrast Date of E xam: 01/15/25 Exam# [id number] Ordering Dr: Laurie Mayorga NP TECHNICAL PHOTOGRAPHER-C PROCEDURE: CT CHEST, ABD, PEL W/CONTRAST 01/15/2025 REASON FOR EXAM: M ESOPHAGEAL CA Currently on chemotherapy. TECHNIQUE: Chest, abdomen and pelvis CT with intravenous contrast. Coronal and Sagittal reconstruction series were provided. One or more dose reduction techniques were used (e.g., Automated exposure control, adjustment of the mA and/or kV according to patient size, use of iterative reconstruction technique. PATIENT PREPARATION: Per protocol ORAL CONTRAST TYPE: None. CONTRAST: Isovue 370 VOLUME: 100mL RADIATION DOSE SUMMARY: CTDlvol: 7.97 mGy DLP: 544.72 mGycm COMPARISON: Prior study dated October 21, 2024. FINDINGS: CT CHEST: Hardware: A left-sided port a catheter is seen with the tip in the superior venacava. Lymph nodes: No significant lymph nodes are seen. Stable 1.1 cm lymph node in the precarinal space. Heart and Vasculature: The heart is not enlarged. No pericardial effusion. Coronary artery calcification. Atherosclerotic calcifications of the thoracic aorta. Pulmonary arteries are unremarkable. Lungs and Airways: Since prior study, as with a been progressive airspace disease in the right lower lobe with bronchiectasis and bleb formation. New patchy areas of ground-glass appearance in the left lower lobe. These have progressed as compared to prior study. Calcified granuloma in the posterior right upper lobe. Pleura: No pleural effusion. Bones: Degenerative changes of the thoracic spine. CT ABDOMEN/PELVIS: Liver: Stable 2.2 cm cyst in the left lobe of the liver.. Tiny subcentimeter scattered hypodense nodules in the right lobe of the liver. Gallbladder: Surgically absent. Spleen: Normal size. Pancreas: 6.3 mm cyst in the uncinate process of the pancreas. Adrenals: Unremarkable Kidneys: Mild left hydronephrosis. No obstructive uropathy is seen. Bladder: Unremarkable. There is evidence of prior TURP of the prostate. Bowel: Colonic diverticulosis without diverticulitis. Appendix: The appendix is not identified. There is no inflammatory process identified in the right lower quadrant to suggest appendicitis. Lymph nodes: Unremarkable. Vasculature: Mild diffuse atherosclerotic calcifications are noted. Peritoneum / Retroperitoneum: Unremarkable Bones: Degenerative changes of the spine. CT/CT Chest, Abd, Pel w/Contrast IMPRESSION: Increased airspace disease in the right lower lobe with areas of bronchiectasis and small cyst formation suggestive of possible scarring. Stable hypodensities in the liver. Reading Location: [id number] CC: [facility] [place]; [facility] Experimental Mechanic Electrical: Signed [facility]07-29-2025 Progress [facility] [address] [place] [id number] OFFICE VISIT Date of Service: 12/22/2446 MR#: [id number] Acct: [id number] Name: AMADO GALLARDO Rep #: [id number] : 1950 From: Santosh Pires MD Age/Sex: 74/M [place] [facility] [place]: Signed HPI Subjective Date of Service 12/22/24 Chief Complaint Metastatic esophageal cancer History of Present Illness 74-year-old gentleman, who experienced increasing dysphagia, epigastric discomfort and 25 pound weight loss with onset around December 2023. June 15, 2024 CT chest abdomen and pelvis: IMPRESSION: Multiple new pulmonary nodules measuring up to 10 mm, concerning for pulmonary metastases. Mild pneumonia or pneumonitis in the lower lobes. Mild left supraclavicular and mediastinal lymphadenopathy, also concerning for metastasis. Multiple new liver masses, concerning for metastases. 1.5 cm pancreatic mass, suspicious for malignancy with mild retroperitoneal lymphadenopathy. Cholelithiasis. Right nephrolithiasis. June 23, 2024 upper EUS: Impression: 2 cm hypoechoic echoic mass was identified in the pancreatic body stage T2 N2 byEndo sonographic criteria. FNA obtained. A mass was found at the GE junction, tissue was obtained stage T3 N3 by endosonography criteria At least 2 suspected metastatic lesions in the liver. Many malignant appearing lymph nodes visualized in the lower paraesophageal mediastinum, gastrohepatic ligament, celiac region and peripancreatic region. June 25, 2024 pathology: EUS FNA pancreatic body mass malignant cells present the right from adenocarcinoma. Distal esophagus mass biopsy: Invasive moderate to poorly differentiated adenocarcinoma PD-L1 analysis GE junction adenocarcinoma, expressed (15) HER2 2+ by IHC, negative by FISH June 25, 2024 PET/CT initial stagin. Large intense metabolic mass at the GE junction extending to involve the adjacent stomach noted.This is highly suspicious for primary malignancy. 2. Extensive metastases involving bilateral lung parenchyma, right and left hepatic lobes noted. 3. Intense metabolic left supraclavicular node mediastinal and retroperitoneal nodes suspicious formetastasis. 4. Intense metabolic mass that appears to be within the body of the pancreas issuspicious for malignancy or metastases although cannot exclude meka metastasis. 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 October 21, 2024 CT chest abdomen and pelvis: IMPRESSION: Since prior study, there has been almost complete clearing of the previously seen nodules in the lower lobes of both lungs as well as the liver metastasis. Improvement of the hypodense lesion in the body of the pancreas. Gallstones. Treatment summary and response: FOLFOX nivolumab August 04, 2024-ID. Comes for C11 FOLFOX + Nivo. Feels well. 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 Regional lymph node metastasis present Esophageal cancer Pancreatic cancer CAD (coronary artery disease) Cough with hemoptysis Wears glasses Prostate disease High cholesterol Former smoker History of echocardiogram Cardiology follow-up encounter Screen for colon cancer Hepatic cyst Carotid artery stenosis Dyspnea Anemia, mild Atonic bladder BPH (benign prostatic hyperplasia) Hyperlipidemia Hemoptysis Surgical History History of foot surgery History of colonoscopy (~2007) Family History Father Heart disease CHF (congestive heart failure) Myocardial infarction 60 Mother Heart disease CHF (congestive heart failure) Brother CAD (coronary artery disease), Onset Age: 40 stent placement Bladder cancer Brother CVA (cerebral vascular accident) Social History Smoking Status: Former smoker alcohol intake: current alcohol intake frequency: a few times a week Alcohol type: beer substance use type: does not use caffeine: Yes Type: coffee Number of servings: 1 what type of physical activity do you participate in: walking frequency: daily duration: 30-45 minutes/day Intake Vital Signs 10/27/24 09:15 12/22/24 09:49 Height 5 ft 10 in 5 ft 10 in Weight: 56.784 kg BMI 17.9 BP 109/70 Blood Pressure Location Lt brachial Position Sitting Respiration 18 Pulse 73 Pulse Source Monitor Temp 98.2 F Temperature Source Temporal Artery Pulse Oximetry (%) 97 Oxygen Delivery Method room air Intake Accompanied by: Self Is patient in pain?: No Allergies No Known Allergies Allergy (Verified 12/22/24 09:50) Medications ?Medication ?Instructions ?Recorded ?Confirmed ?Type atorvastatin 40 mg tablet 40 mg PO DAILY 01/12/2111/25 History latanoprost 0.005 % eye drops 1 drp ophthalmic (eye) Q DAY 07/14/24 12/22/24 History lidocaine-prilocaine 2.5 %-2.5 % 1 applic topical ONCE PRN port 07/27/24 12/22/24 Rx topical cream access 30 days #30 grams ondansetron 8 mg disintegrating 8 mg PO Q8H PRN nausea and 07/27/24 12/22/24 Rx tablet vomiting #30 tabs prochlorperazine maleate 10 mg 10 mg PO Q6H PRN nausea and 07/27/24 12/22/24 Rx tablet vomiting #30 tabs oxycodone-acetaminophen 5 mg-325 1 tab PO Q8H PRN pain 3 days #5 07/30/24 12/22/24 Rx mg tablet (Percocet) tabs MAGIC MOUTH WASH (BMX) 180 mL 15 ml PO Q4H PRN Pain #1 80 mL 08/04/24 12/22/24 Rx suspension nystatin 100,000 unit/mL oral 5 ml PO TID #473 mL 08/2612/22/24 Rx suspension Have you fallen in the past year?: No Central Venous Access Central Venous Access: Yes Port/PICC: Port Exam Physical Exam Narrative ECOG 1 Const alert, oriented x3 and no apparent distress HEENT Face and Sinus: normal facial exam Mouth: oral and palatal mucosa normal and No thrush Eyes General Eye: normal appearance of both eyes Neck no lymphadenopathy and no JVD Chest Chest: vascular access Resp clear to auscultation bilaterally Cardio regular rate and regular rhythm Jugular Venous Distention: Negative for JVD GI soft to palpation, non-tender and non-distended; Negative for hepatosplenomegaly Back/Spine no thoracic nor lumbar tenderness Extremity no clubbing, cyanosis or edema Extremity Narrative: Right ankle brace Skin no rashes or lesions noted Neuro oriented x3, CN's II-XII intact bilaterally, moves all extremities and no focal motor deficits Coordination / Balance: fcnkth-[id number]-zhnj test normal Speech: speech normal Gait (Neuro): normal gait Psych mental status grossly normal Coding Level of Care Code Off vis,est,level 4 Exam Problem Focused Diagnoses Malignant neoplasm of lower third of esophagus C15.5 Malignant neoplasm of esophagus location: lower third Regional lymph node metastasis present C77.9 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; C78.02 Metastasis to liver C78.7 Malignant neoplasm of body of pancreas C25.1 Pancreatic malignancy location: body of pancreas Assessment and Plan Assessment and Plan (1) Esophageal cancer: Status: Chronic Qualifiers: Malignant neoplasm of esophagus location: lower third Qualified Code(s): C15.5 - Malignant neoplasmof lower third of esophagus (2) Regional lymph node metastasis present: Status: Chronic (3) 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 Tumor is [id number] overexpressed (IHC 2+ FISH negative) and PD-L1 over 1. An adenocarcinoma pathologically confirmed by FNA from the body of the pancreas in my opinion more likely metastases to adjacent lymph nodesrather than a second primary and less likely a second primary adenocarcinoma of the pancreas. The distinction is only of academic interest but has no clinical implications. Patient presented with several months of increasing dysphagia, epigastric discomfort and weight loss. Patient is anemic most likely due to cancer and chronic GI blood loss from the esophageal carcinoma. Started combination chemotherapy immunotherapy with modified FOLFOX 6 nivolumab August 04, 2024. Comes for C11. Counts and chemistry reviewed, OK for therapy. Plan is to proceed with C11 FOLFOX + Nivo. Plan Details Follow Up: 2 Weeks Clinical Quality Measures Falls Risk Screening/Assistive Devices Have you fallen in the past year?: No 12/22/24 1014 D> Date _ Santosh Pires MD Cosigner Signature: Date (if applicable) CC: ~ [facility]07-29-2025 Progress note Author Santosh Pires [facility] Note Date/Time December 22, 2024 10:1 4am [facility] [address] [place] [address] OFFICE VISIT Date of Service: 12/22/24 0946 MR#: [id number] Acct: [id number] Name: AMADO GALLARDO Rep #: [id number] : 1950 From: Santosh Pires MD Age/Sex: 74/M [place] [facility] [place] Signed HPI Subjective Date of Service 12/22/24 Chief Complaint Metastatic esophageal cancer History of Present Illness 74-year-old gentleman, who experienced increasing dysphagia, epigastric discomfort and 25 pound weight loss with onset around December 2023. June 15, 2024 CT chest abdomen and pelvis: IMPRESSION: Multiple new pulmonary nodules measuring up to 10 mm, concerning for pulmonary metastases. Mild pneumonia or pneumonitis in the lower lobes. Mild left supraclavicular and mediastinal lymphadenopathy, also concerning for metastasis. Multiple new liver masses, concerning for metastases. 1.5 cm pancreatic mass, suspicious for malignancy with mild retroperitoneal lymphadenopathy. Cholelithiasis. Right nephrolithiasis. June 23, 2024 upper EUS: Impression: 2 cm hypoechoic echoic mass was identified in the pancreatic body stage T2 N2 byEndo sonographic criteria. FNA obtained. A mass was found at the GE junction, tissue was obtained stage T3 N3 by endosonography criteria At least 2 suspected metastatic lesions in the liver. Many malignant appearing lymph nodes visualized in the lower paraesophageal mediastinum, gastrohepatic ligament, celiac region and peripancreatic region. June 25, 2024 pathology: EUS FNA pancreatic body mass malignant cells present the right from adenocarcinoma. Distal esophagus mass biopsy: Invasive moderate to poorly differentiated adenocarcinoma PD-L1 analysis GE junction adenocarcinoma, expressed (15) HER2 2+ by IHC, negative by FISH June 25, 2024 PET/CT initial stagin. Large intense metabolic mass at the GE junction extending to involve the adjacent stomach noted. This is highly suspicious for primary malignancy. 2. Extensive metastases involving bilateral lung parenchyma, right and left hepatic lobes noted. 3. Intense metabolic left supraclavicular node mediastinal and retroperitoneal nodes suspicious for metastasis. 4. Intense metabolic mass that appears to be within the body of the pancreas issuspicious for malignancy or metastases although cannot exclude meka metastasis. 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 October 21, 2024 CT chest abdomen and pelvis: IMPRESSION: Since prior study, there has been almost complete clearing of the previously seen nodules in the lower lobes of both lungs as well as the liver metastasis. Improvement of the hypodense lesion in the body of the pancreas. Gallstones. Treatment summary and response: FOLFOX nivolumab August 04, 2024-ID. Comes for C11 FOLFOX + Nivo. Feels well. 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 Regional lymph node metastasis present Esophageal cancer Pancreatic cancer CAD (coronary artery disease) Cough with hemoptysis Wears glasses Prostate disease High cholesterol Former smoker History of echocardiogram Cardiology follow-up encounter Screen for colon cancer Hepatic cyst Carotid artery stenosis Dyspnea Anemia, mild Atonic bladder BPH (benign prostatic hyperplasia) Hyperlipidemia Hemoptysis Surgical History History of foot surgery History of colonoscopy (~2007) Family History Father Heart disease CHF (congestive heart failure) Myocardial infarction 60 Mother Heart disease CHF (congestive heart failure) Brother CAD (coronary artery disease), Onset Age: 40 stent placement Bladder cancer Brother CVA (cerebral vascular accident) Social History Smoking Status: Former smoker alcohol intake: current alcohol intake frequency: a few times a week Alcohol type: beer substance use type: does not use caffeine: Yes Type: coffee Number of servings: 1 what type of physical activity do you participate in: walking frequency: daily duration: 30-45 minutes/day Intake Vital Signs 10/27/24 09:15 12/22/24 09:49 Height 5 ft 10 in 5 ft 10 in Weight: 56.784 kg BMI 17.9 BP 109/70 Blood Pressure Location Lt brachial Position Sitting Respiration 18 Pulse 73 Pulse Source Monitor Temp 98.2 F Temperature Source Temporal Artery Pulse Oximetry (%) 97 Oxygen Delivery Method room air Intake Accompanied by: Self Is patient in pain?: No Allergies No Known Allergies Allergy (Verified 12/22/24 09:50) Medications ?Medication ?Instructions ?Recorded ?Confirmed ?Type atorvastatin 40 mg tablet 40 mg PO DAILY 01/12/2111/25 History latanoprost 0.005 % eye drops 1 drp ophthalmic (eye) Q DAY 07/14/24 12/22/24 History lidocaine-prilocaine 2.5 %-2.5 % 1 applic topical ONCE PRN port 07/27/24 12/22/24 Rx topical cream access 30 days #30 grams ondansetron 8 mg disintegrating 8 mg PO Q8H PRN nausea and 07/27/24 12/22/24 Rx tablet vomiting #30 tabs prochlorperazine maleate 10 mg 10 mg PO Q6H PRN nausea and 07/27/24 12/22/24 Rx tablet vomiting #30 tabs oxycodone-acetaminophen 5 mg-325 1 tab PO Q8H PRN pain 3 days #5 07/30/24 12/22/24 Rx mg tablet (Percocet) tabs MAGIC MOUTH WASH (BMX) 180 mL 15 ml PO Q4H PRN Pain #1 80 mL 08/04/24 12/22/24 Rx suspension nystatin 100,000 unit/mL oral 5 ml PO TID #473 mL 08/2612/22/24 Rx suspension Have you fallen in the past year?: No Central Venous Access Central Venous Access: Yes Port/PICC: Port Exam Physical Exam Narrative ECOG 1 Const alert, oriented x3 and no apparent distress HEENT Face and Sinus: normal facial exam Mouth: oral and palatal mucosa normal and No thrush Eyes General Eye: normal appearance of both eyes Neck no lymphadenopathy and no JVD Chest Chest: vascular access Resp clear to auscultation bilaterally Cardio regular rate and regular rhythm Jugular Venous Distention: Negative for JVD GI soft to palpation, non-tender and non-distended; Negative for hepatosplenomegaly Back/Spine no thoracic nor lumbar tenderness Extremity no clubbing, cyanosis or edema Extremity Narrative: Right ankle brace Skin no rashes or lesions noted Neuro oriented x3, CN's II-XII intact bilaterally, moves all extremities and no focal motor deficits Coordination / Balance: ynhgpy-fw-ljvo test normal Speech: speech normal Gait (Neuro): normal gait Psych mental status grossly normal Coding Level of Care Code Off vis,est,level 4 Exam Problem Focused Diagnoses Malignant neoplasm of lower third of esophagus C15.5 Malignant neoplasm of esophagus location: lower third Regional lymph node metastasis present C77.9 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; C78.02 Metastasis to liver C78.7 Malignant neoplasm of body of pancreas C25.1 Pancreatic malignancy location: body of pancreas Assessment and Plan Assessment and Plan (1) Esophageal cancer: Status: Chronic Qualifiers: Malignant neoplasm of esophagus location: lower third Qualified Code(s): C15.5 - Malignant neoplasm of lower third of esophagus (2) Regional lymph node metastasis present: Status: Chronic (3) 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 Tumor is HER2 not overexpressed (IHC 2+ FISH negative) and PD-L1 over 1. An adenocarcinoma pathologically confirmed by FNA from the body of the pancreas in my opinion more likely metastases to adjacent lymph nodes rather than a second primary and less likely a second primary adenocarcinoma of the pancreas. The distinction is only of academic interest but has no clinical implications. Patient presented with several months of increasing dysphagia, epigastric discomfort and weight loss. Patient is anemic most likely due to cancer and chronic GI blood loss from the esophageal carcinoma. Started combination chemotherapy immunotherapy with modified FOLFOX 6 nivolumab August 04, 2024. Comes for C11. Counts and chemistry reviewed, OK for therapy. Plan is to proceed with C11 FOLFOX + Nivo. Plan Details Follow Up: 2 Weeks Clinical Quality Measures Falls Risk Screening/Assistive Devices Have you fallen in the past year?: No 12/22/24 1014 <Electronically signed by Santosh Negron> Date _ Santosh Pires MD [facility] Signature: Date (if applicable) CC: ~ [facility] Work Phone: 1(355) 702-971107-15-2025 Progress [facility] [place] [address] OFFICE VISIT Date of Service: 12/08/24 0854 MR#: [id number] Acct: [id number] Name: AMADO GALLARDO Rep #: [id number] : 1950 From: Laurie Keller ch TECHNICAL PHOTOGRAPHER TECHNICAL PHOTOGRAPHER-C Age/Sex: 74/M Location: [facility] [place] Status: Signed HPI Subjective Date of Service 12/08/24 Chief Complaint Metastatic esophageal cancer History of Present Illness 74-year-old gentleman, who experienced increasing dysphagia, epigastric discomfort and 25 pound weight loss with onset around December 2023. June 15, 2024 CT chest abdomen and pelvis: IMPRESSION: Multiple new pulmonary nodules measuring up to 10 mm, concerning for pulmonary metastases. Mild pneumonia or pneumonitis in the lower lobes. Mild left supraclavicular and mediastinal lymphadenopathy, also concerning for metastasis. Multiple new liver masses, concerning for metastases. 1.5 cm pancreatic mass, suspicious for malignancy with mild retroperitoneal lymphadenopathy. Cholelithiasis. Right nephrolithiasis. June 23, 2024 upper EUS: Impression: 2 cm hypoechoic echoic mass was identified in the pancreatic body stage T2 N2 byEndo sonographic criteria. FNA obtained. A mass was found at the GE junction, tissue was obtained stage T3 N3 by endosonography criteria At least 2 suspected metastatic lesions in the liver. Many malignant appearing lymph nodes visualized in the lower paraesophageal mediastinum, gastrohepatic ligament, celiac region and peripancreatic region. June 25, 2024 pathology: EUS FNA pancreatic body mass malignant cells present the right from adenocarcinoma. Distal esophagus mass biopsy: Invasive moderate to poorly differentiated adenocarcinoma PD-L1 analysis GE junction adenocarcinoma, expressed (15) HER2 2+ by IHC, negative by FISH June 25, 2024 PET/CT initial stagin. Large intense metabolic mass at the GE junction extending to involve the adjacent stomach noted.This is highly suspicious for primary malignancy. 2. Extensive metastases involving bilateral lung parenchyma, right and left hepatic lobes noted. 3. Intense metabolic left supraclavicular node mediastinal and retroperitoneal nodes suspicious formetastasis. 4. Intense metabolic mass that appears to be within the body of the pancreas issuspicious for malignancy or metastases although cannot exclude meka metastasis. 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 October 21, 2024 CT chest abdomen and pelvis: IMPRESSION: Since prior study, there has been almost complete clearing of the previously seen nodules in the lower lobes of both lungs as well as the liver metastasis. Improvement of the hypodense lesion in the body of the pancreas. Gallstones. Treatment summary and response: FOLFOX nivolumab August 04, 2024-ID. Interval History Patient is presenting to clinic today anticipating he will begin cycle 10 FOLFOXand nivolumab. He denies any concerns r/t today's visit. Has been taking senna/colace for 2 days prior and through day 3 of each treatment cycle with positive results. LBM yesterday morning. No abd pain. Appetite good, PO fluid intake described as adequate. 2 bottles ofEnsure daily. + intermittent, mild numbness/tingling fingertips bilat now occuring outside of cold exposure. Specifically denies fever/chills, sweats, headaches, dizziness, CP, palpitations, cough, SOB, abd pain, N/V/D, swelling/pain of his extremities. 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 Regional lymph node metastasis present Esophageal cancer Pancreatic cancer CAD (coronary artery disease) Cough with hemoptysis Wears glasses Prostate disease High cholesterol Former smoker History of echocardiogram Cardiology follow-up encounter Screen for colon cancer Hepatic cyst Carotid artery stenosis Dyspnea Anemia, mild Atonic bladder BPH (benign prostatic hyperplasia) Hyperlipidemia Hemoptysis Surgical History History of foot surgery History of colonoscopy (~2007) Family History Father Heart disease CHF (congestive heart failure) Myocardial infarction 60 Mother Heart disease CHF (congestive heart failure) Brother CAD (coronary artery disease), Onset Age: 40 stent placement Bladder cancer Brother CVA (cerebral vascular accident) Social History Smoking Status: Former smoker alcohol intake: current alcohol intake frequency: a few times a week Alcohol type: beer substance use type: does not use caffeine: Yes Type: coffee Number of servings: 1 what type of physical activity do you participate in: walking frequency: daily duration: 30-45 minutes/day ROS ROS Narrative Negative except as documented in the interval HPI Intake Vital Signs 10/27/24 09:15 12/08/24 08:58 12/08/24 09:24 Height 5 ft 10 in 5 ft 10 in 5 ft 10 in Weight: 126 lb 7 oz BMI 18.1 BP 103/64 Blood Pressure Location Lt brachial Position Sitting Respiration 16 Pulse 71 Pulse Source Monitor Temp 98.1 F Temperature Source Temporal Artery Pulse Oximetry (%) 98 Oxygen Delivery Method room air Intake Is patient in pain?: No Allergies No Known Allergies Allergy (Verified 12/08/24 09:24) Medications ?Medication ?Instructions ?Recorded ?Confirmed ?Type atorvastatin 40 mg tablet 40 mg PO DAILY 01/12/2111/24 History latanoprost 0.005 % eye drops 1 drp ophthalmic (eye) Q DAY 07/14/24 12/08/24 History lidocaine-prilocaine 2.5 %-2.5 % 1 applic topical ONCE PRN port 07/27/24 12/08/24 Rx topical cream access 30 days #30 grams ondansetron 8 mg disintegrating 8 mg PO Q8H PRN nausea and 07/27/24 12/08/24 Rx tablet vomiting #30 tabs prochlorperazine maleate 10 mg 10 mg PO Q6H PRN nausea and 07/27/24 12/08/24 Rx tablet vomiting #30 tabs oxycodone-acetaminophen 5 mg-325 1 tab PO Q8H PRN pain 3 days #5 07/30/24 12/08/24 Rx mg tablet (Percocet) tabs MAGIC MOUTH WASH (BMX) 180 mL 15 ml PO Q4H PRN Pain #1 80 mL 08/04/24 12/08/24 Rx suspension nystatin 100,000 unit/mL oral 5 ml PO TID #473 mL 08/2612/08/24 Rx suspension Have you fallen in the past year?: No Central Venous Access Central Venous Access: Yes Port/PICC: Port Laboratory Tests 12/08/24 09:08 WBC 4.1 L Hgb 9.4 L Hct 28.9 L Plt Count 163 Absolute Neuts (auto) 2.3 Sodium 142 Potassium 3.9 Chloride 105 Carbon Dioxide 26.0 BUN 16 Creatinine 0.66 L Glucose 135 H Magnesium 2.4 H Total Bilirubin 0.88 AST 34 ALT 27 Alkaline Phosphatase 70 Albumin 4.2 Exam Physical Exam Narrative ECOG 1 Const alert, oriented x3 and no apparent distress HEENT Face and Sinus: normal facial exam Mouth: oral and palatal mucosa normal and No thrush Eyes General Eye: normal appearance of both eyes Neck no lymphadenopathy and no JVD Chest Chest: vascular access Resp clear to auscultation bilaterally Cardio regular rate and regular rhythm Jugular Venous Distention: Negative for JVD GI soft to palpation, non-tender and non-distended; Negative for hepatosplenomegaly Back/Spine no thoracic nor lumbar tenderness Extremity no clubbing, cyanosis or edema Extremity Narrative: Right ankle brace Skin no rashes or lesions noted Neuro oriented x3, CN's II-XII intact bilaterally, moves all extremities and no focal motor deficits Coordination / Balance: [id number] test normal Speech: speech normal Gait (Neuro): normal gait Psych mental status grossly normal Coding Level of Care Code Off vis,est,level 4 Exam Problem Focused Diagnoses Malignant neoplasm of lower third of esophagus C15.5 Malignant neoplasm of esophagus location: lower third Regional lymph node metastasis present C77.9 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; C78.02 Metastasis to liver C78.7 Malignant neoplasm of body of pancreas C25.1 Pancreatic malignancy location: body of pancreas Assessment and Plan Assessment and Plan (1) Esophageal cancer: Status: Chronic Qualifiers: Malignant neoplasm of esophagus location: lower third Qualified Code(s): C15.5 - Malignant neoplasmof lower third of esophagus (2) Regional lymph node metastasis present: Status: Chronic (3) 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 Tumor is YMT8rpt overexpressed (IHC 2+ FISH negative) and PD-L1 over 1. An adenocarcinoma pathologically confirmed by FNA from the body of the pancreas in my opinion more likely metastases to adjacent lymph nodesrather than a second primary and less likely a second primary adenocarcinoma of the pancreas. The distinction is only of academic interest but has no clinical implications. Patient presented with several months of increasing dysphagia, epigastric discomfort and weight loss. Patient is anemic most likely due to cancer and chronic GI blood loss from the esophageal carcinoma. Started combination chemotherapy immunotherapy with modified FOLFOX 6 nivolumab August 04, 2024. Treatment is tolerated with no grade 3 or 4 toxicities the patient is subjectively and objectively responding. Imaging in September 2024 shows significant remission of his disease. Chronic comorbid conditions: Coronary artery disease, cerebrovascular disease, dyslipidemia. Plan: Based on NCCN guidelines and up-to-date review of management of metastaticadenocarcinoma of the GE junction with a palliative intent plus or minus a modest survival benefit. 1. Continue combination systemic therapy with FOLFOX and nivolumab. Proceed with cycle 10. 2. Anemia; no evidence for iron deficiency supportive transfusion to maintain hemoglobin above 7 g per DL. 3. Elective imaging with CT scan of the chest and abdomen/pelvis every 3 months next to schedule end of December 2024. Orders provided Clinical Quality Measures Falls Risk Screening/Assistive Devices Have you fallen in the past year?: No 12/08/24 1008 h TECHNICAL PHOTOGRAPHER TECHNICAL PHOTOGRAPHER-C> Date _ Laurie Vail TECHNICAL PHOTOGRAPHER TECHNICAL PHOTOGRAPHER-C Cosigner Signature: Date (if applicable) CC: ~ [facility]07-15-2025 Progress note Author Laurie Vail [facility] Note Date/Time December 08, 2024 10:0 8am [facility] [place] [address] OFFICE VISIT Date of Service: 12/08/24 0854 MR#: [id number] Acct: [id number] Name: AMADO GALLARDO Rep #: [id number] : 1950 From: Laurie Keller ch, NP TECHNICAL PHOTOGRAPHER-C Age/Sex: 74/M Location: [facility] [place] Status: Signed HPI Subjective Date of Service 12/08/24 Chief Complaint Metastatic esophageal cancer History of Present Illness 74-year-old gentleman, who experienced increasing dysphagia, epigastric discomfort and 25 pound weight loss with onset around December 2023. June 15, 2024 CT chest abdomen and pelvis: IMPRESSION: Multiple new pulmonary nodules measuring up to 10 mm, concerning for pulmonary metastases. Mild pneumonia or pneumonitis in the lower lobes. Mild left supraclavicular and mediastinal lymphadenopathy, also concerning for metastasis. Multiple new liver masses, concerning for metastases. 1.5 cm pancreatic mass, suspicious for malignancy with mild retroperitoneal lymphadenopathy. Cholelithiasis. Right nephrolithiasis. June 23, 2024 upper EUS: Impression: 2 cm hypoechoic echoic mass was identified in the pancreatic body stage T2 N2 byEndo sonographic criteria. FNA obtained. A mass was found at the GE junction, tissue was obtained stage T3 N3 by endosonography criteria At least 2 suspected metastatic lesions in the liver. Many malignant appearing lymph nodes visualized in the lower paraesophageal mediastinum, gastrohepatic ligament, celiac region and peripancreatic region. June 25, 2024 pathology: EUS FNA pancreatic body mass malignant cells present the right from adenocarcinoma. Distal esophagus mass biopsy: Invasive moderate to poorly differentiated adenocarcinoma PD-L1 analysis GE junction adenocarcinoma, expressed (15) HER2 2+ by IHC, negative by FISH June 25, 2024 PET/CT initial stagin. Large intense metabolic mass at the GE junction extending to involve the adjacent stomach noted. This is highly suspicious for primary malignancy. 2. Extensive metastases involving bilateral lung parenchyma, right and left hepatic lobes noted. 3. Intense metabolic left supraclavicular node mediastinal and retroperitoneal nodes suspicious for metastasis. 4. Intense metabolic mass that appears to be within the body of the pancreas issuspicious for malignancy or metastases although cannot exclude meka metastasis. 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 October 21, 2024 CT chest abdomen and pelvis: IMPRESSION: Since prior study, there has been almost complete clearing of the previously seen nodules in the lower lobes of both lungs as well as the liver metastasis. Improvement of the hypodense lesion in the body of the pancreas. Gallstones. Treatment summary and response: FOLFOX nivolumab August 04, 2024-ID. Interval History Patient is presenting to clinic today anticipating he will begin cycle 10 FOLFOXand nivolumab. He denies any concerns r/t today's visit. Has been taking senna/colace for 2 days prior and through day 3 of each treatment cycle with positive results. LBM yesterday morning. No abd pain. Appetite good, PO fluid intake described as adequate. 2 bottles ofEnsure daily. + intermittent, mild numbness/tingling fingertips bilat now occuring outside of cold exposure. Specifically denies fever/chills, sweats, headaches, dizziness, CP, palpitations, cough, SOB, abd pain, N/V/D, swelling/pain of his extremities. 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 Regional lymph node metastasis present Esophageal cancer Pancreatic cancer CAD (coronary artery disease) Cough with hemoptysis Wears glasses Prostate disease High cholesterol Former smoker History of echocardiogram Cardiology follow-up encounter Screen for colon cancer Hepatic cyst Carotid artery stenosis Dyspnea Anemia, mild Atonic bladder BPH (benign prostatic hyperplasia) Hyperlipidemia Hemoptysis Surgical History History of foot surgery History of colonoscopy (~2007) Family History Father Heart disease CHF (congestive heart failure) Myocardial infarction 60 Mother Heart disease CHF (congestive heart failure) Brother CAD (coronary artery disease), Onset Age: 40 stent placement Bladder cancer Brother CVA (cerebral vascular accident) Social History Smoking Status: Former smoker alcohol intake: current alcohol intake frequency: a few times a week Alcohol type: beer substance use type: does not use caffeine: Yes Type: coffee Number of servings: 1 what type of physical activity do you participate in: walking frequency: daily duration: 30-45 minutes/day ROS ROS Narrative Negative except as documented in the interval HPI Intake Vital Signs 10/27/24 09:15 12/08/24 08:58 12/08/24 09:24 Height 5 ft 10 in 5 ft 10 in 5 ft 10 in Weight: 126 lb 7 oz BMI 18.1 BP 103/64 Blood Pressure Location Lt brachial Position Sitting Respiration 16 Pulse 71 Pulse Source Monitor Temp 98.1 F Temperature Source Temporal Artery Pulse Oximetry (%) 98 Oxygen Delivery Method room air Intake Is patient in pain?: No Allergies No Known Allergies Allergy (Verified 12/08/24 09:24) Medications ?Medication ?Instructions ?Recorded ?Confirmed ?Type atorvastatin 40 mg tablet 40 mg PO DAILY 01/12/2111/24 History latanoprost 0.005 % eye drops 1 drp ophthalmic (eye) Q DAY 07/14/24 12/08/24 History lidocaine-prilocaine 2.5 %-2.5 % 1 applic topical ONCE PRN port 07/27/24 12/08/24 Rx topical cream access 30 days #30 grams ondansetron 8 mg disintegrating 8 mg PO Q8H PRN nausea and 07/27/24 12/08/24 Rx tablet vomiting #30 tabs prochlorperazine maleate 10 mg 10 mg PO Q6H PRN nausea and 07/27/24 12/08/24 Rx tablet vomiting #30 tabs oxycodone-acetaminophen 5 mg-325 1 tab PO Q8H PRN pain 3 days #5 07/30/24 12/08/24 Rx mg tablet (Percocet) tabs MAGIC MOUTH WASH (BMX) 180 mL 15 ml PO Q4H PRN Pain #1 80 mL 08/04/24 12/08/24 Rx suspension nystatin 100,000 unit/mL oral 5 ml PO TID #473 mL 08/2612/08/24 Rx suspension Have you fallen in the past year?: No Central Venous Access Central Venous Access: Yes Port/PICC: Port Laboratory Tests 12/08/24 09:08 WBC 4.1 L Hgb 9.4 L Hct 28.9 L Plt Count 163 Absolute Neuts (auto) 2.3 Sodium 142 Potassium 3.9 Chloride 105 Carbon Dioxide 26.0 BUN 16 Creatinine 0.66 L Glucose 135 H Magnesium 2.4 H Total Bilirubin 0.88 AST 34 ALT 27 Alkaline Phosphatase 70 Albumin 4.2 Exam Physical Exam Narrative ECOG 1 Const alert, oriented x3 and no apparent distress HEENT Face and Sinus: normal facial exam Mouth: oral and palatal mucosa normal and No thrush Eyes General Eye: normal appearance of both eyes Neck no lymphadenopathy and no JVD Chest Chest: vascular access Resp clear to auscultation bilaterally Cardio regular rate and regular rhythm Jugular Venous Distention: Negative for JVD GI soft to palpation, non-tender and non-distended; Negative for hepatosplenomegaly Back/Spine no thoracic nor lumbar tenderness Extremity no clubbing, cyanosis or edema Extremity Narrative: Right ankle brace Skin no rashes or lesions noted Neuro oriented x3, CN's II-XII intact bilaterally, moves all extremities and no focal motor deficits Coordination / Balance: [id number] test normal Speech: speech normal Gait (Neuro): normal gait Psych mental status grossly normal Coding Level of Care Code Off vis,est,level 4 Exam Problem Focused Diagnoses Malignant neoplasm of lower third of esophagus C15.5 Malignant neoplasm of esophagus location: lower third Regional lymph node metastasis present C77.9 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; C78.02 Metastasis to liver C78.7 Malignant neoplasm of body of pancreas C25.1 Pancreatic malignancy location: body of pancreas Assessment and Plan Assessment and Plan (1) Esophageal cancer: Status: Chronic Qualifiers: Malignant neoplasm of esophagus location: lower third Qualified Code(s): C15.5 - Malignant neoplasm of lower third of esophagus (2) Regional lymph node metastasis present: Status: Chronic (3) 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 Tumor is HER2 not overexpressed (IHC 2+ FISH negative) and PD-L1 over 1. An adenocarcinoma pathologically confirmed by FNA from the body of the pancreas in my opinion more likely metastases to adjacent lymph nodes rather than a second primary and less likely a second primary adenocarcinoma of the pancreas. The distinction is only of academic interest but has no clinical implications. Patient presented with several months of increasing dysphagia, epigastric discomfort and weight loss. Patient is anemic most likely due to cancer and chronic GI blood loss from the esophageal carcinoma. Started combination chemotherapy immunotherapy with modified FOLFOX 6 nivolumab August 04, 2024. Treatment is tolerated with no grade 3 or 4 toxicities the patient is subjectively and objectively responding. Imaging in September 2024 shows significant remission of his disease. Chronic comorbid conditions: Coronary artery disease, cerebrovascular disease, dyslipidemia. Plan: Based on NCCN guidelines and up-to-date review of management of metastaticadenocarcinoma of the GE junction with a palliative intent plus or minus a modest survival benefit. 1. Continue combination systemic therapy with FOLFOX and nivolumab. Proceed with cycle 10. 2. Anemia; no evidence for iron deficiency supportive transfusion to maintain hemoglobin above 7 g per DL. 3. Elective imaging with CT scan of the chest and abdomen/pelvis every 3 months next to schedule end of December 2024. 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 November 24, 2024 8 :32am Esophageal cancer chronic November 8:32am Metastasis to liver chronic November 24, 2024 8:32am Pancreatic cancer chronic November 8:32am 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 November 24, 2024 8 :32am 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 December 08, 2024 8:34am Esophageal cancer chronic December 082024 8:34am Metastasis to liver chronic December 08, 2024 8:34am Pancreatic cancer chronic December 082024 8:34am 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 December 08, 2024 8:34am 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 December 22, 2024 8:31am Esophageal cancer chronic December 222024 8:31am Metastasis to liver chronic December 22, 2024 8:31am Pancreatic cancer chronic December 222024 8:31am 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 December 22, 2024 8:31am 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 January 05 8:22am Esophageal cancer chronic January 05, 2025 8:22am Metastasis to liver chronic 2024 8:22am Pancreatic cancer chronic January 05, 2025 8:22am 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 January 05 8:22am 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 January 19 8:32am Esophageal cancer chronic January 19, 2025 8:32am Metastasis to liver chronic 2024 8:32am Pancreatic cancer chronic January 19, 2025 8:32am 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 January 19 8:32am Encounter for antineoplastic immunotherapy acute February 02 8:35am Encounter for chemotherapy management acute February 02 8:35am 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 February 02 8:35am Esophageal cancer chronic Septemb er 2024 8:35am Metastasis to liver chronic Septe er 2024 8:35am Pancreatic cancer chronic Septemb er 2024 8:35am 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 February 02 8:35am 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 February 10, 2025 7:29am Esophageal cancer chronic Septemb er 2024 7:29am Metastasis to liver chronic Septe er 2024 7:29am 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 February 10, 2025 7:29am 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 February 16, 2025 8:28am Esophageal cancer chronic Septemb er 2024 8:28am Metastasis to liver chronic Septe er 2024 8:28am 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 February 16, 2025 8:28am Drug induced neutropenia acute March 02, 2025 8:33am Encounter for antineoplastic immunotherapy acute March 02 8:33am Encounter for chemotherapy management acute March 02 8:33am Neuropathy acute March 02 8:33am 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 March 02 8:33am Esophageal cancer chronic March 02, 2025 8:33am Metastasis to liver chronic Febob 2024 8:33am 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 March 02 8:33am 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 March 09 8:33am Esophageal cancer chronic March 09, 2025 8:33am Metastasis to liver chronic Octob er 2024 8:33am 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 March 09 8:33am [facility] Work Phone: 1(193) 146-676607-01-2025 Progress [facility] [place] [address] OFFICE VISIT Date of Service: 11/24/24928 MR#: [id number] Acct: [id number] Name: AMADO GALLARDO Rep #: [id number] : 1950 From: Zulay wills MD Age/Sex: 74/M Location: [facility] [place] Status: Signed HPI Subjective Date of Service 11/24/24 Chief Complaint Metastatic esophageal cancer History of Present Illness 74-year-old gentleman, who experienced increasing dysphagia, epigastric discomfort and 25 pound weight loss with onset around December 2023. June 15, 2024 CT chest abdomen and pelvis: IMPRESSION: Multiple new pulmonary nodules measuring up to 10 mm, concerning for pulmonary metastases. Mild pneumonia or pneumonitis in the lower lobes. Mild left supraclavicular and mediastinal lymphadenopathy, also concerning for metastasis. Multiple new liver masses, concerning for metastases. 1.5 cm pancreatic mass, suspicious for malignancy with mild retroperitoneal lymphadenopathy. Cholelithiasis. Right nephrolithiasis. June 23, 2024 upper EUS: Impression: 2 cm hypoechoic echoic mass was identified in the pancreatic body stage T2 N2 byEndo sonographic criteria. FNA obtained. A mass was found at the GE junction, tissue was obtained stage T3 N3 by endosonography criteria At least 2 suspected metastatic lesions in the liver. Many malignant appearing lymph nodes visualized in the lower paraesophageal mediastinum, gastrohepatic ligament, celiac region and peripancreatic region. June 25, 2024 pathology: EUS FNA pancreatic body mass malignant cells present the right from adenocarcinoma. Distal esophagus mass biopsy: Invasive moderate to poorly differentiated adenocarcinoma PD-L1 analysis GE junction adenocarcinoma, expressed (15) HER2 2+ by IHC, negative by FISH June 25, 2024 PET/CT initial stagin. Large intense metabolic mass at the GE junction extending to involve the adjacent stomach noted.This is highly suspicious for primary malignancy. 2. Extensive metastases involving bilateral lung parenchyma, right and left hepatic lobes noted. 3. Intense metabolic left supraclavicular node mediastinal and retroperitoneal nodes suspicious formetastasis. 4. Intense metabolic mass that appears to be within the body of the pancreas issuspicious for malignancy or metastases although cannot exclude meka metastasis. 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 October 21, 2024 CT chest abdomen and pelvis: IMPRESSION: Since prior study, there has been almost complete clearing of the previously seen nodules in the lower lobes of both lungs as well as the liver metastasis. Improvement of the hypodense lesion in the body of the pancreas. Gallstones. Treatment summary and response: FOLFOX nivolumab August 04, 2024-ID. 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 Regional lymph node metastasis present Esophageal cancer Pancreatic cancer CAD (coronary artery disease) Cough with hemoptysis Wears glasses Prostate disease High cholesterol Former smoker History of echocardiogram Cardiology follow-up encounter Screen for colon cancer Hepatic cyst Carotid artery stenosis Dyspnea Anemia, mild Atonic bladder BPH (benign prostatic hyperplasia) Hyperlipidemia Hemoptysis Surgical History History of foot surgery History of colonoscopy (~2007) Family History Father Heart disease CHF (congestive heart failure) Myocardial infarction 60 Mother Heart disease CHF (congestive heart failure) Brother CAD (coronary artery disease), Onset Age: 40 stent placement Bladder cancer Brother CVA (cerebral vascular accident) Social History Smoking Status: Former smoker alcohol intake: current alcohol intake frequency: a few times a week Alcohol type: beer substance use type: does not use caffeine: Yes Type: coffee Number of servings: 1 what type of physical activity do you participate in: walking frequency: daily duration: 30-45 minutes/day ROS ROS Narrative I feel a lot better Constitutional Constitutional: Reports systems reviewed and no addt'l complaints, except as documented, fatigue and other Details: Last fatigue, able to do ADL and house duties at own pace ; Denies anorexia, fever(s), night sweats or weight loss Eyes Eyes: Reports systems reviewed and no addt'l complaints, except as documented ENT HEENT: Reports systems reviewed and no addt'l complaints, except as documented and other Details: Mouth lesions managed with BMX ; Denies mouth lesions Cardiovascular Cardiovascular: Reports systems reviewed and no addt'l complaints, except as documented; Denies chest pain with activity or edema Respiratory/Chest Respiratory/Chest: Reports systems reviewed and no addt'l complaints, except as documented; Denies cough, dyspnea on exertion or hemoptysis Gastrointestinal Gastrointestinal: Reports systems reviewed and no addt'l complaints, except as documented and constipation; Denies abdominal pain, anorexia, change in stool character, dysphagia, heartburn, hematochezia, melena, nausea or vomiting Genitourinary Genitourinary: Reports systems reviewed and no addt'l complaints, except as documented Musculoskeletal Musculoskeletal: Reports systems reviewed and no addt'l complaints, except as documented and other Details: A chronic injury of the right ankle, wears a brace; Denies back pain Integumentary Integumentary: Reports systems reviewed and no addt'l complaints, except as documented; Denies new lesions Neurologic Neurologic: Reports systems reviewed and no addt'l complaints, except as documented; Denies focal weakness or paresthesias Psychiatric Psychiatric: Reports systems reviewed and no addt'l complaints, except as documented Endocrine Endocrinology: Reports systems reviewed and no addt'l complaints, except as documented Hematologic/Lymphatic Hematologic/Lymphatic: Reports systems reviewed and no addt'l complaints, exceptas documented; Denies easy bleeding, easy bruising or lymphadenopathy Intake Vital Signs 10/27/24 09:15 11/24/24 09:30 11/24/24 09:34 Height 5 ft 10 in 5 ft 10 in 5 ft 10 in Weight: 58.173 kg BMI 18.3 BP 111/69 Blood Pressure Location Lt brachial Position Sitting Respiration 16 Pulse 70 Pulse Source Monitor Temp 98.0 F Temperature Source Temporal Artery Pulse Oximetry (%) 95 Oxygen Delivery Method room air Intake Is patient in pain?: No Allergies No Known Allergies Allergy (Verified 11/24/24 09:33) Medications ?Medication ?Instructions ?Recorded ?Confirmed ?Type atorvastatin 40 mg tablet 40 mg PO DAILY 01/12/2106/20 History latanoprost 0.005 % eye drops 1 drp ophthalmic (eye) Q DAY 07/14/24 11/24/24 History lidocaine-prilocaine 2.5 %-2.5 % 1 applic topical ONCE PRN port 07/27/24 11/24/24 Rx topical cream access 30 days #30 grams ondansetron 8 mg disintegrating 8 mg PO Q8H PRN nausea and 07/27/24 11/24/24 Rx tablet vomiting #30 tabs prochlorperazine maleate 10 mg 10 mg PO Q6H PRN nausea and 07/27/24 11/24/24 Rx tablet vomiting #30 tabs oxycodone-acetaminophen 5 mg-325 1 tab PO Q8H PRN pain 3 days #5 07/30/24 11/24/24 Rx mg tablet (Percocet) tabs MAGIC MOUTH WASH (BMX) 180 mL 15 ml PO Q4H PRN Pain #1 80 mL 08/04/24 11/24/24 Rx suspension nystatin 100,000 unit/mL oral 5 ml PO TID #473 mL 08/2611/24/24 Rx suspension Have you fallen in the past year?: No Central Venous Access Central Venous Access: Yes Port/PICC: Port CBC, CMP November 24, 2024 reviewed in EMR Exam Physical Exam Narrative ECOG 1 Const alert, oriented x3 and no apparent distress HEENT Face and Sinus: normal facial exam Mouth: oral and palatal mucosa normal and No thrush Eyes General Eye: normal appearance of both eyes Neck no lymphadenopathy and no JVD Chest Chest: vascular access Resp clear to auscultation bilaterally Cardio regular rate and regular rhythm Jugular Venous Distention: Negative for JVD GI soft to palpation, non-tender and non-distended; Negative for hepatosplenomegaly Back/Spine no thoracic nor lumbar tenderness Extremity no clubbing, cyanosis or edema Extremity Narrative: Right ankle brace Skin no rashes or lesions noted Neuro oriented x3, CN's II-XII intact bilaterally, moves all extremities and no focal motor deficits Coordination / Balance: [id number] test normal Speech: speech normal Gait (Neuro): normal gait Psych mental status grossly normal Coding Level of Care Code Off vis,est,level 4 Exam Problem Focused Diagnoses Malignant neoplasm of lower third of esophagus C15.5 Malignant neoplasm of esophagus location: lower third Regional lymph node metastasis present C77.9 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; C78.02 Metastasis to liver C78.7 Malignant neoplasm of body of pancreas C25.1 Pancreatic malignancy location: body of pancreas Assessment and Plan Assessment and Plan (1) Esophageal cancer: Status: Chronic Qualifiers: Malignant neoplasm of esophagus location: lower third Qualified Code(s): C15.5 - Malignant neoplasmof lower third of esophagus (2) Regional lymph node metastasis present: Status: Chronic (3) 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 Tumor is [id number] overexpressed (IHC 2+ FISH negative) and PD-L1 over 1. An adenocarcinoma pathologically confirmed by FNA from the body of the pancreas in my opinion more likely metastases to adjacent lymph nodesrather than a second primary and less likely a second primary adenocarcinoma of the pancreas. The distinction is only of academic interest but has no clinical implications. Patient presented with several months of increasing dysphagia, epigastric discomfort and weight loss. Patient is anemic most likely due to cancer and chronic GI blood loss from the esophageal carcinoma. Started combination chemotherapy immunotherapy with modified FOLFOX 6 nivolumab August 04, 2024. Treatment is tolerated with no grade 3 or 4 toxicities the patient is subjectively and objectively responding. Imaging in September 2024 shows significant remission of his disease. Chronic comorbid conditions: Coronary artery disease, cerebrovascular disease, dyslipidemia. Plan: Based on NCCN guidelines and up-to-date review of management of metastaticadenocarcinoma of the GE junction with a palliative intent plus or minus a modest survival benefit. 1. Continue combination systemic therapy with FOLFOX and nivolumab. 2. Anemia; no evidence for iron deficiency supportive transfusion to maintain hemoglobin above 7 g per DL. 3. Nutrition consulted and patient was also referred to palliative care. 4. Elective imaging with CT scan of the chest and abdomen/pelvis every 3 monthsnext to schedule endof December 2024. Patient was seen, impression and plan discussed. Zulay Celis MD [employer], [facility] Divisions of Medical Oncology & Hematology Department of Internal Medicine [place] [id number] This note was generated using a voice recognition system software. Although itwas reviewed by the author prior to finalization, it may still contain incorrectwords, spelling, and punctuation that were not noted when reviewing prior to saving. If a clinically significant typo or inaccurately typed phrase is noted, please notify the author. Clinical Quality Measures Falls Risk Screening/Assistive Devices Have you fallen in the past year?: No 11/24/24 0956 alma AVINA> Date _ Zulay Cleis MD Cosigner Signature: Date (if applicable) CC: ~ [facility]07-01-2025 Progress note Author Zulay Celis [facility] Note Date/Time November 24, 2024 9:55a m [facility] [place] [facility] [address] [address] OFFICE VISIT Date of Service: 11/24/24928 MR#: [id number] Acct: [id number] Name: AMADO GALLARDO Rep #: [id number] : 1950 From: Zulay wills MD Age/Sex: 74/M [place] [facility] [place] Signed HPI Subjective Date of Service 11/24/24 Chief Complaint Metastatic esophageal cancer History of Present Illness 74-year-old gentleman, who experienced increasing dysphagia, epigastric discomfort and 25 pound weight loss with onset around December 2023. June 15, 2024 CT chest abdomen and pelvis: IMPRESSION: Multiple new pulmonary nodules measuring up to 10 mm, concerning for pulmonary metastases. Mild pneumonia or pneumonitis in the lower lobes. Mild left supraclavicular and mediastinal lymphadenopathy, also concerning for metastasis. Multiple new liver masses, concerning for metastases. 1.5 cm pancreatic mass, suspicious for malignancy with mild retroperitoneal lymphadenopathy. Cholelithiasis. Right nephrolithiasis. June 23, 2024 upper EUS: Impression: 2 cm hypoechoic echoic mass was identified in the pancreatic body stage T2 N2 byEndo sonographic criteria. FNA obtained. A mass was found at the GE junction, tissue was obtained stage T3 N3 by endosonography criteria At least 2 suspected metastatic lesions in the liver. Many malignant appearing lymph nodes visualized in the lower paraesophageal mediastinum, gastrohepatic ligament, celiac region and peripancreatic region. June 25, 2024 pathology: EUS FNA pancreatic body mass malignant cells present the right from adenocarcinoma. Distal esophagus mass biopsy: Invasive moderate to poorly differentiated adenocarcinoma PD-L1 analysis GE junction adenocarcinoma, expressed (15) HER2 2+ by IHC, negative by FISH June 25, 2024 PET/CT initial stagin. Large intense metabolic mass at the GE junction extending to involve the adjacent stomach noted. This is highly suspicious for primary malignancy. 2. Extensive metastases involving bilateral lung parenchyma, right and left hepatic lobes noted. 3. Intense metabolic left supraclavicular node mediastinal and retroperitoneal nodes suspicious for metastasis. 4. Intense metabolic mass that appears to be within the body of the pancreas issuspicious for malignancy or metastases although cannot exclude meka metastasis. 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 October 21, 2024 CT chest abdomen and pelvis: IMPRESSION: Since prior study, there has been almost complete clearing of the previously seen nodules in the lower lobes of both lungs as well as the liver metastasis. Improvement of the hypodense lesion in the body of the pancreas. Gallstones. Treatment summary and response: FOLFOX nivolumab August 04, 2024-ID. 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 Regional lymph node metastasis present Esophageal cancer Pancreatic cancer CAD (coronary artery disease) Cough with hemoptysis Wears glasses Prostate disease High cholesterol Former smoker History of echocardiogram Cardiology follow-up encounter Screen for colon cancer Hepatic cyst Carotid artery stenosis Dyspnea Anemia, mild Atonic bladder BPH (benign prostatic hyperplasia) Hyperlipidemia Hemoptysis Surgical History History of foot surgery History of colonoscopy (~2007) Family History Father Heart disease CHF (congestive heart failure) Myocardial infarction 60 Mother Heart disease CHF (congestive heart failure) Brother CAD (coronary artery disease), Onset Age: 40 stent placement Bladder cancer Brother CVA (cerebral vascular accident) Social History Smoking Status: Former smoker alcohol intake: current alcohol intake frequency: a few times a week Alcohol type: beer substance use type: does not use caffeine: Yes Type: coffee Number of servings: 1 what type of physical activity do you participate in: walking frequency: daily duration: 30-45 minutes/day ROS ROS Narrative I feel a lot better Constitutional Constitutional: Reports systems reviewed and no addt'l complaints, except as documented, fatigue and other Details: Last fatigue, able to do ADL and house duties at own pace ; Denies anorexia, fever(s), night sweats or weight loss Eyes Eyes: Reports systems reviewed and no addt'l complaints, except as documented ENT HEENT: Reports systems reviewed and no addt'l complaints, except as documented and other Details: Mouth lesions managed with BMX ; Denies mouth lesions Cardiovascular Cardiovascular: Reports systems reviewed and no addt'l complaints, except as documented; Denies chest pain with activity or edema Respiratory/Chest Respiratory/Chest: Reports systems reviewed and no addt'l complaints, except as documented; Denies cough, dyspnea on exertion or hemoptysis Gastrointestinal Gastrointestinal: Reports systems reviewed and no addt'l complaints, except as documented and constipation; Denies abdominal pain, anorexia, change in stool character, dysphagia, heartburn, hematochezia, melena, nausea or vomiting Genitourinary Genitourinary: Reports systems reviewed and no addt'l complaints, except as documented Musculoskeletal Musculoskeletal: Reports systems reviewed and no addt'l complaints, except as documented and other Details: A chronic injury of the right ankle, wears a brace; Denies back pain Integumentary Integumentary: Reports systems reviewed and no addt'l complaints, except as documented; Denies new lesions Neurologic Neurologic: Reports systems reviewed and no addt'l complaints, except as documented; Denies focal weakness or paresthesias Psychiatric Psychiatric: Reports systems reviewed and no addt'l complaints, except as documented Endocrine Endocrinology: Reports systems reviewed and no addt'l complaints, except as documented Hematologic/Lymphatic Hematologic/Lymphatic: Reports systems reviewed and no addt'l complaints, exceptas documented; Denies easy bleeding, easy bruising or lymphadenopathy Intake Vital Signs 10/27/24 09:15 11/24/24 09:30 11/24/24 09:34 Height 5 ft 10 in 5 ft 10 in 5 ft 10 in Weight: 58.173 kg BMI 18.3 BP 111/69 Blood Pressure Location Lt brachial Position Sitting Respiration 16 Pulse 70 Pulse Source Monitor Temp 98.0 F Temperature Source Temporal Artery Pulse Oximetry (%) 95 Oxygen Delivery Method room air Intake Is patient in pain?: No Allergies No Known Allergies Allergy (Verified 11/24/24 09:33) Medications ?Medication ?Instructions ?Recorded ?Confirmed ?Type atorvastatin 40 mg tablet 40 mg PO DAILY 01/12/21 0706/20 History latanoprost 0.005 % eye drops 1 drp ophthalmic (eye) Q DAY 07/14/24 11/24/24 History lidocaine-prilocaine 2.5 %-2.5 % 1 applic topical ONCE PRN port 07/27/24 11/24/24 Rx topical cream access 30 days #30 grams ondansetron 8 mg disintegrating 8 mg PO Q8H PRN nausea and 07/27/24 11/24/24 Rx tablet vomiting #30 tabs prochlorperazine maleate 10 mg 10 mg PO Q6H PRN nausea and 07/27/24 11/24/24 Rx tablet vomiting #30 tabs oxycodone-acetaminophen 5 mg-325 1 tab PO Q8H PRN pain 3 days #5 07/30/24 11/24/24 Rx mg tablet (Percocet) tabs MAGIC MOUTH WASH (BMX) 180 mL 15 ml PO Q4H PRN Pain #1 80 mL 08/04/24 11/24/24 Rx suspension nystatin 100,000 unit/mL oral 5 ml PO TID #473 mL 08/2611/24/24 Rx suspension Have you fallen in the past year?: No Central Venous Access Central Venous Access: Yes Port/PICC: Port CBC, CMP November 24, 2024 reviewed in EMR Exam Physical Exam Narrative ECOG 1 Const alert, oriented x3 and no apparent distress HEENT Face and Sinus: normal facial exam Mouth: oral and palatal mucosa normal and No thrush Eyes General Eye: normal appearance of both eyes Neck no lymphadenopathy and no JVD Chest Chest: vascular access Resp clear to auscultation bilaterally Cardio regular rate and regular rhythm Jugular Venous Distention: Negative for JVD GI soft to palpation, non-tender and non-distended; Negative for hepatosplenomegaly Back/Spine no thoracic nor lumbar tenderness Extremity no clubbing, cyanosis or edema Extremity Narrative: Right ankle brace Skin no rashes or lesions noted Neuro oriented x3, CN's II-XII intact bilaterally, moves all extremities and no focal motor deficits Coordination / Balance: [id number] test normal Speech: speech normal Gait (Neuro): normal gait Psych mental status grossly normal Coding Level of Care Code Off vis,est,level 4 Exam Problem Focused Diagnoses Malignant neoplasm of lower third of esophagus C15.5 Malignant neoplasm of esophagus location: lower third Regional lymph node metastasis present C77.9 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; C78.02 Metastasis to liver C78.7 Malignant neoplasm of body of pancreas C25.1 Pancreatic malignancy location: body of pancreas Assessment and Plan Assessment and Plan (1) Esophageal cancer: Status: Chronic Qualifiers: Malignant neoplasm of esophagus location: lower third Qualified Code(s): C15.5 - Malignant neoplasm of lower third of esophagus (2) Regional lymph node metastasis present: Status: Chronic (3) 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 Tumor is HER2 not overexpressed (IHC 2+ FISH negative) and PD-L1 over 1. An adenocarcinoma pathologically confirmed by FNA from the body of the pancreas in my opinion more likely metastases to adjacent lymph nodes rather than a second primary and less likely a second primary adenocarcinoma of the pancreas. The distinction is only of academic interest but has no clinical implications. Patient presented with several months of increasing dysphagia, epigastric discomfort and weight loss. Patient is anemic most likely due to cancer and chronic GI blood loss from the esophageal carcinoma. Started combination chemotherapy immunotherapy with modified FOLFOX 6 nivolumab August 04, 2024. Treatment is tolerated with no grade 3 or 4 toxicities the patient is subjectively and objectively responding. Imaging in September 2024 shows significant remission of his disease. Chronic comorbid conditions: Coronary artery disease, cerebrovascular disease, dyslipidemia. Plan: Based on NCCN guidelines and up-to-date review of management of metastaticadenocarcinoma of the GE junction with a palliative intent plus or minus a modest survival benefit. 1. Continue combination systemic therapy with FOLFOX and nivolumab. 2. Anemia; no evidence for iron deficiency supportive transfusion to maintain hemoglobin above 7 g per DL. 3. Nutrition consulted and patient was also referred to palliative care. 4. Elective imaging with CT scan of the chest and abdomen/pelvis every 3 monthsnext to schedule end of December 2024. Patient was seen, impression and plan discussed. Zulay Celis MD Stra[employer] Kn[employer], [facility] Divisions of Medical Oncology & Hematology Department of Internal Medicine [place] [id number] This note was generated using a voice recognition system software. Although itwas reviewed by the author prior to finalization, it may still contain incorrectwords, spelling, and punctuation that were not noted when reviewing prior to saving. If a clinically significant typo or inaccurately typed phrase is noted, please notify the author. 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 November 11, 2024 8:30am Esophageal cancer chronic November 112024 8:30am Metastasis to liver chronic November 11, 2024 8:30am Pancreatic cancer chronic November 112024 8:30am 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 November 11, 2024 8:30am 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 November 24, 2024 8 :32am Esophageal cancer chronic November 8:32am Metastasis to liver chronic November 24, 2024 8:32am Pancreatic cancer chronic November 8:32am 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 November 24, 2024 8 :32am 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 December 08, 2024 8:34am Esophageal cancer chronic December 082024 8:34am Metastasis to liver chronic December 08, 2024 8:34am Pancreatic cancer chronic December 082024 8:34am 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 December 08, 2024 8:34am 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 December 22, 2024 8:31am Esophageal cancer chronic December 222024 8:31am Metastasis to liver chronic December 22, 2024 8:31am Pancreatic cancer chronic December 222024 8:31am 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 December 22, 2024 8:31am 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 January 05 8:22am Esophageal cancer chronic January 05, 2025 8:22am Metastasis to liver chronic 2024 8:22am Pancreatic cancer chronic January 05, 2025 8:22am 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 January 05 8:22am 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 January 19 8:32am Esophageal cancer chronic January 19, 2025 8:32am Metastasis to liver chronic t 2024 8:32am Pancreatic cancer chronic January 19, 2025 8:32am 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 January 19 8:32am Encounter for antineoplastic immunotherapy acute February 02 8:35am Encounter for chemotherapy management acute February 02 8:35am 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 February 02 8:35am Esophageal cancer chronic Septemb er 2024 8:35am Metastasis to liver chronic Septe mber 2024 8:35am Pancreatic cancer chronic Septemb er 2024 8:35am 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 February 02 8:35am 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 February 10, 2025 7:29am Esophageal cancer chronic Septemb er 2024 7:29am Metastasis to liver chronic Septe mber 2024 7:29am 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 February 10, 2025 7:29am 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 February 16, 2025 8:28am Esophageal cancer chronic Septemb er 2024 8:28am Metastasis to liver chronic Septe mber 2024 8:28am 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 February 16, 2025 8:28am 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 March 02 8:33am Esophageal cancer chronic March 02, 2025 8:33am Metastasis to liver chronic Octob er 2024 8:33am 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 March 02 8:33am [facility] Work Phone: 1(413) 777-721806-18-2025 Progress [facility] [place] [address] OFFICE VISIT Date of Service: 11/11/24931 MR#: [id number] Acct: [id number] Name: AMADO GALLARDO Rep #: [id number] : 1950 From: Laurie Keller ch TECHNICAL PHOTOGRAPHER TECHNICAL PHOTOGRAPHER-C Age/Sex: 74/M Location: [facility] [place] Status: Signed HPI Subjective Date of Service 11/11/24 Chief Complaint Metastatic esophageal cancer History of Present Illness 74-year-old gentleman, who experienced increasing dysphagia, epigastric discomfort and 25 pound weight loss with onset around December 2023. June 15, 2024 CT chest abdomen and pelvis: IMPRESSION: Multiple new pulmonary nodules measuring up to 10 mm, concerning for pulmonary metastases. Mild pneumonia or pneumonitis in the lower lobes. Mild left supraclavicular and mediastinal lymphadenopathy, also concerning for metastasis. Multiple new liver masses, concerning for metastases. 1.5 cm pancreatic mass, suspicious for malignancy with mild retroperitoneal lymphadenopathy. Cholelithiasis. Right nephrolithiasis. June 23, 2024 upper EUS: Impression: 2 cm hypoechoic echoic mass was identified in the pancreatic body stage T2 N2 byEndo sonographic criteria. FNA obtained. A mass was found at the GE junction, tissue was obtained stage T3 N3 by endosonography criteria At least 2 suspected metastatic lesions in the liver. Many malignant appearing lymph nodes visualized in the lower paraesophageal mediastinum, gastrohepatic ligament, celiac region and peripancreatic region. June 25, 2024 pathology: EUS FNA pancreatic body mass malignant cells present the right from adenocarcinoma. Distal esophagus mass biopsy: Invasive moderate to poorly differentiated adenocarcinoma PD-L1 analysis GE junction adenocarcinoma, expressed (15) HER2 2+ by IHC, negative by FISH June 25, 2024 PET/CT initial stagin. Large intense metabolic mass at the GE junction extending to involve the adjacent stomach noted.This is highly suspicious for primary malignancy. 2. Extensive metastases involving bilateral lung parenchyma, right and left hepatic lobes noted. 3. Intense metabolic left supraclavicular node mediastinal and retroperitoneal nodes suspicious formetastasis. 4. Intense metabolic mass that appears to be within the body of the pancreas issuspicious for malignancy or metastases although cannot exclude meka metastasis. May 25, 2024 and May [id number] patient was seen by medical oncology at [facility]: Impression stage IV esophageal carcinoma plus possible pancreatic adenocarcinoma, PD-L1 and HER2 results were pending at the time recommendation was FOLFOX plus or minus nivolumab plus or minus trastuzumab depending on molecular studies. October 21, 2024 CT chest abdomen and pelvis: IMPRESSION: Since prior study, there has been almost complete clearing of the previously seen nodules in the lower lobes of both lungs as well as the liver metastasis. Improvement of the hypodense lesion in the body of the pancreas. Gallstones. Treatment summary and response: FOLFOX nivolumab August 04, 2024-ID. Interval History Patient is presenting to clinic today anticipating he will begin cycle 8 FOLFOX and nivolumab. He denies any concerns r/t today's visit. Has been taking senna/colace for 2 days before and through day 3 of each treatment cycle with positive results. LBM earlier this morning. No abd bloating. Appetite "great", PO fluid intake described as adequate. 2 bottles of Ensure daily. Specifically denies fever/chills, sweats, headaches, dizziness, CP, palpitations, cough, SOB, abd pain, N/V/D, numbness/tingling, swelling/pain of his extremities. 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 Regional lymph node metastasis present Esophageal cancer Pancreatic cancer CAD (coronary artery disease) Cough with hemoptysis Wears glasses Prostate disease High cholesterol Former smoker History of echocardiogram Cardiology follow-up encounter Screen for colon cancer Hepatic cyst Carotid artery stenosis Dyspnea Anemia, mild Atonic bladder BPH (benign prostatic hyperplasia) Hyperlipidemia Hemoptysis Surgical History History of foot surgery History of colonoscopy (~2007) Family History Father Heart disease CHF (congestive heart failure) Myocardial infarction 60 Mother Heart disease CHF (congestive heart failure) Brother CAD (coronary artery disease), Onset Age: 40 stent placement Bladder cancer Brother CVA (cerebral vascular accident) Social History Smoking Status: Former smoker alcohol intake: current alcohol intake frequency: a few times a week Alcohol type: beer substance use type: does not use caffeine: Yes Type: coffee Number of servings: 1 what type of physical activity do you participate in: walking frequency: daily duration: 30-45 minutes/day ROS ROS Narrative Negative except as documented in the interval HPI Intake Vital Signs 10/27/24 09:15 11/11/24 09:33 11/11/24 09:34 Height 5 ft 10 in 5 ft 10 in 5 ft 10 in Weight: 128 lb 5 oz BMI 18.3 BP 118/73 Blood Pressure Location Lt brachial Position Sitting Respiration 18 Pulse 69 Pulse Source Monitor Temp 98.3 F Temperature Source Temporal Artery Pulse Oximetry (%) 97 Oxygen Delivery Method room air Intake Is patient in pain?: No Allergies No Known Allergies Allergy (Verified 11/11/24 09:33) Medications ?Medication ?Instructions ?Recorded ?Confirmed ?Type atorvastatin 40 mg tablet 40 mg PO DAILY 01/12/2110/25 History latanoprost 0.005 % eye drops 1 drp ophthalmic (eye) Q DAY 07/14/24 11/11/24 History lidocaine-prilocaine 2.5 %-2.5 % 1 applic topical ONCE PRN port 07/27/24 11/11/24 Rx topical cream access 30 days #30 grams ondansetron 8 mg disintegrating 8 mg PO Q8H PRN nausea and 07/27/24 11/11/24 Rx tablet vomiting #30 tabs prochlorperazine maleate 10 mg 10 mg PO Q6H PRN nausea and 07/27/24 11/11/24 Rx tablet vomiting #30 tabs oxycodone-acetaminophen 5 mg-325 1 tab PO Q8H PRN pain 3 days #5 07/30/24 11/11/24 Rx mg tablet (Percocet) tabs MAGIC MOUTH WASH (BMX) 180 mL 15 ml PO Q4H PRN Pain #1 80 mL 08/04/24 11/11/24 Rx suspension nystatin 100,000 unit/mL oral 5 ml PO TID #473 mL 08/2611/11/24 Rx suspension Have you fallen in the past year?: No Central Venous Access Central Venous Access: Yes Port/PICC: Port Laboratory Tests 11/11/24 08:40 WBC 4.2 L Hgb 9.9 L Hct 29.4 L Plt Count 162 Absolute Neuts (auto) 2.4 Laboratory Tests 11/11/24 08:40 Sodium 141 Potassium 4.3 Chloride 105 BUN 15 Creatinine 0.71 Calcium 9.3 Phosphorus 3.6 Magnesium 2.5 H Total Bilirubin 0.87 AST 39 H ALT 32 Alkaline Phosphatase 74 Albumin 4.2 Exam Physical Exam Narrative ECOG 1 Const alert, oriented x3 and no apparent distress HEENT Face and Sinus: normal facial exam Mouth: oral and palatal mucosa normal and No thrush Eyes General Eye: normal appearance of both eyes Neck no lymphadenopathy and no JVD Chest Chest: vascular access Resp clear to auscultation bilaterally Cardio regular rate and regular rhythm Jugular Venous Distention: Negative for JVD GI soft to palpation, non-tender and non-distended; Negative for hepatosplenomegaly Back/Spine no thoracic nor lumbar tenderness Extremity no clubbing, cyanosis or edema Extremity Narrative: Right ankle brace Skin no rashes or lesions noted Neuro oriented x3, CN's II-XII intact bilaterally, moves all extremities and no focal motor deficits Speech: speech normal Gait (Neuro): normal gait Psych mental status grossly normal Coding Level of Care Code Off vis,est,level 4 Exam Problem Focused Diagnoses Malignant neoplasm of lower third of esophagus C15.5 Malignant neoplasm of esophagus location: lower third Regional lymph node metastasis present C77.9 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; C78.02 Metastasis to liver C78.7 Malignant neoplasm of body of pancreas C25.1 Pancreatic malignancy location: body of pancreas Encounter for chemotherapy management Z51.11 Encounter for antineoplastic immunotherapy Z51.12 Assessment and Plan Assessment and Plan (1) Esophageal cancer: Status: Chronic Qualifiers: Malignant neoplasm of esophagus location: lower third Qualified Code(s): C15.5 - Malignant neoplasmof lower third of esophagus (2) Regional lymph node metastasis present: Status: Chronic (3) 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 Tumor is [id number] overexpressed (IHC 2+ FISH negative) and PD-L1 over 1. An adenocarcinoma pathologically confirmed by FNA from the body of the pancreas in my opinion more likely metastases to adjacent lymph nodesrather than a second primary and less likely a second primary adenocarcinoma of the pancreas. The distinction is only of academic interest but has no clinical implications. Patient presented with several months of increasing dysphagia, epigastric discomfort and weight loss. Patient is anemic most likely due to cancer and chronic GI blood loss from the esophageal carcinoma. Started combination chemotherapy immunotherapy with modified FOLFOX 6 nivolumab August 04, 2024. Treatment is tolerated with no grade 3 or 4 toxicities the patient is subjectively responding. Imaging in September 2024 shows significant remission of his disease. Chronic comorbid conditions: Coronary artery disease, cerebrovascular disease, dyslipidemia. Plan: Based on NCCN guidelines and up-to-date review of management of metastaticadenocarcinoma of the GE junction with a palliative intent plus or minus a modest survival benefit. 1. Continue combination systemic therapy with FOLFOX and nivolumab. Proceed with cycle 8 today. 2. Anemia; no evidence for iron deficiency supportive transfusion to maintain hemoglobin above 7 g per DL. 3. Elective imaging with CT scan of the chest and abdomen/pelvis every 3 months next to schedule end of December 2024. RTO on 11/24/24 for ?c9 (date modified to account for November 27 holiday) Clinical Quality Measures Falls Risk Screening/Assistive Devices Have you fallen in the past year?: No 11/11/24 1011 h TECHNICAL PHOTOGRAPHER TECHNICAL PHOTOGRAPHER-C> Date _ Laurie Vail NP TECHNICAL PHOTOGRAPHER-C Cosigner Signature: Date (if applicable) CC: ~ [facility]06-18-2025 Progress note Author Laurie Vail [facility] Services Note Date/Time November 11, 2024 10:1 1am [facility] [address] [place] [address] OFFICE VISIT Date of Service: 11/11/24 09 MR#: [id number] Acct: [id number] Name: AMADO GALLARDO Rep #: [id number] : 1950 From: Laurie Schlaba ch TECHNICAL PHOTOGRAPHER TECHNICAL PHOTOGRAPHER-C Age/Sex: 74/M Location: [facility] Status: Signed HPI Subjective Date of Service 11/11/24 Chief Complaint Metastatic esophageal cancer History of Present Illness 74-year-old gentleman, who experienced increasing dysphagia, epigastric discomfort and 25 pound weight loss with onset around December 2023. June 15, 2024 CT chest abdomen and pelvis: IMPRESSION: Multiple new pulmonary nodules measuring up to 10 mm, concerning for pulmonary metastases. Mild pneumonia or pneumonitis in the lower lobes. Mild left supraclavicular and mediastinal lymphadenopathy, also concerning for metastasis. Multiple new liver masses, concerning for metastases. 1.5 cm pancreatic mass, suspicious for malignancy with mild retroperitoneal lymphadenopathy. Cholelithiasis. Right nephrolithiasis. June 23, 2024 upper EUS: Impression: 2 cm hypoechoic echoic mass was identified in the pancreatic body stage T2 N2 byEndo sonographic criteria. FNA obtained. A mass was found at the GE junction, tissue was obtained stage T3 N3 by endosonography criteria At least 2 suspected metastatic lesions in the liver. Many malignant appearing lymph nodes visualized in the lower paraesophageal mediastinum, gastrohepatic ligament, celiac region and peripancreatic region. June 25, 2024 pathology: EUS FNA pancreatic body mass malignant cells present the right from adenocarcinoma. Distal esophagus mass biopsy: Invasive moderate to poorly differentiated adenocarcinoma PD-L1 analysis GE junction adenocarcinoma, expressed (15) HER2 2+ by IHC, negative by FISH June 25, 2024 PET/CT initial stagin. Large intense metabolic mass at the GE junction extending to involve the adjacent stomach noted. This is highly suspicious for primary malignancy. 2. Extensive metastases involving bilateral lung parenchyma, right and left hepatic lobes noted. 3. Intense metabolic left supraclavicular node mediastinal and retroperitoneal nodes suspicious for metastasis. 4. Intense metabolic mass that appears to be within the body of the pancreas issuspicious for malignancy or metastases although cannot exclude meka metastasis. 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 October 21, 2024 CT chest abdomen and pelvis: IMPRESSION: Since prior study, there has been almost complete clearing of the previously seen nodules in the lower lobes of both lungs as well as the liver metastasis. Improvement of the hypodense lesion in the body of the pancreas. Gallstones. Treatment summary and response: FOLFOX nivolumab August 04, 2024-ID. Interval History Patient is presenting to clinic today anticipating he will begin cycle 8 FOLFOX and nivolumab. He denies any concerns r/t today's visit. Has been taking senna/colace for 2 days before and through day 3 of each treatment cycle with positive results. LBM earlier this morning. No abd bloating. Appetite "great", PO fluid intake described as adequate. 2 bottles of Ensure daily. Specifically denies fever/chills, sweats, headaches, dizziness, CP, palpitations, cough, SOB, abd pain, N/V/D, numbness/tingling, swelling/pain of his extremities. 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 Regional lymph node metastasis present Esophageal cancer Pancreatic cancer CAD (coronary artery disease) Cough with hemoptysis Wears glasses Prostate disease High cholesterol Former smoker History of echocardiogram Cardiology follow-up encounter Screen for colon cancer Hepatic cyst Carotid artery stenosis Dyspnea Anemia, mild Atonic bladder BPH (benign prostatic hyperplasia) Hyperlipidemia Hemoptysis Surgical History History of foot surgery History of colonoscopy (~2007) Family History Father Heart disease CHF (congestive heart failure) Myocardial infarction 60 Mother Heart disease CHF (congestive heart failure) Brother CAD (coronary artery disease), Onset Age: 40 stent placement Bladder cancer Brother CVA (cerebral vascular accident) Social History Smoking Status: Former smoker alcohol intake: current alcohol intake frequency: a few times a week Alcohol type: beer substance use type: does not use caffeine: Yes Type: coffee Number of servings: 1 what type of physical activity do you participate in: walking frequency: daily duration: 30-45 minutes/day ROS ROS Narrative Negative except as documented in the interval HPI Intake Vital Signs 10/27/24 09:15 11/11/24 09:33 11/11/24 09:34 Height 5 ft 10 in 5 ft 10 in 5 ft 10 in Weight: 128 lb 5 oz BMI 18.3 BP 118/73 Blood Pressure Location Lt brachial Position Sitting Respiration 18 Pulse 69 Pulse Source Monitor Temp 98.3 F Temperature Source Temporal Artery Pulse Oximetry (%) 97 Oxygen Delivery Method room air Intake Is patient in pain?: No Allergies No Known Allergies Allergy (Verified 11/11/24 09:33) Medications ?Medication ?Instructions ?Recorded ?Confirmed ?Type atorvastatin 40 mg tablet 40 mg PO DAILY 01/12/2110/25 History latanoprost 0.005 % eye drops 1 drp ophthalmic (eye) Q DAY 07/14/24 11/11/24 History lidocaine-prilocaine 2.5 %-2.5 % 1 applic topical ONCE PRN port 07/27/24 11/11/24 Rx topical cream access 30 days #30 grams ondansetron 8 mg disintegrating 8 mg PO Q8H PRN nausea and 07/27/24 11/11/24 Rx tablet vomiting #30 tabs prochlorperazine maleate 10 mg 10 mg PO Q6H PRN nausea and 07/27/24 11/11/24 Rx tablet vomiting #30 tabs oxycodone-acetaminophen 5 mg-325 1 tab PO Q8H PRN pain 3 days #5 07/30/24 11/11/24 Rx mg tablet (Percocet) tabs MAGIC MOUTH WASH (BMX) 180 mL 15 ml PO Q4H PRN Pain #1 80 mL 08/04/24 11/11/24 Rx suspension nystatin 100,000 unit/mL oral 5 ml PO TID #473 mL 08/2611/11/24 Rx suspension Have you fallen in the past year?: No Central Venous Access Central Venous Access: Yes Port/PICC: Port Laboratory Tests 11/11/24 08:40 WBC 4.2 L Hgb 9.9 L Hct 29.4 L Plt Count 162 Absolute Neuts (auto) 2.4 Laboratory Tests 11/11/24 08:40 Sodium 141 Potassium 4.3 Chloride 105 BUN 15 Creatinine 0.71 Calcium 9.3 Phosphorus 3.6 Magnesium 2.5 H Total Bilirubin 0.87 AST 39 H ALT 32 Alkaline Phosphatase 74 Albumin 4.2 Exam Physical Exam Narrative ECOG 1 Const alert, oriented x3 and no apparent distress HEENT Face and Sinus: normal facial exam Mouth: oral and palatal mucosa normal and No thrush Eyes General Eye: normal appearance of both eyes Neck no lymphadenopathy and no JVD Chest Chest: vascular access Resp clear to auscultation bilaterally Cardio regular rate and regular rhythm Jugular Venous Distention: Negative for JVD GI soft to palpation, non-tender and non-distended; Negative for hepatosplenomegaly Back/Spine no thoracic nor lumbar tenderness Extremity no clubbing, cyanosis or edema Extremity Narrative: Right ankle brace Skin no rashes or lesions noted Neuro oriented x3, CN's II-XII intact bilaterally, moves all extremities and no focal motor deficits Speech: speech normal Gait (Neuro): normal gait Psych mental status grossly normal Coding Level of Care Code Off vis,est,level 4 Exam Problem Focused Diagnoses Malignant neoplasm of lower third of esophagus C15.5 Malignant neoplasm of esophagus location: lower third Regional lymph node metastasis present C77.9 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; C78.02 Metastasis to liver C78.7 Malignant neoplasm of body of pancreas C25.1 Pancreatic malignancy location: body of pancreas Encounter for chemotherapy management Z51.11 Encounter for antineoplastic immunotherapy Z51.12 Assessment and Plan Assessment and Plan (1) Esophageal cancer: Status: Chronic Qualifiers: Malignant neoplasm of esophagus location: lower third Qualified Code(s): C15.5 - Malignant neoplasm of lower third of esophagus (2) Regional lymph node metastasis present: Status: Chronic (3) 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 Tumor is HER2 not overexpressed (IHC 2+ FISH negative) and PD-L1 over 1. An adenocarcinoma pathologically confirmed by FNA from the body of the pancreas in my opinion more likely metastases to adjacent lymph nodes rather than a second primary and less likely a second primary adenocarcinoma of the pancreas. The distinction is only of academic interest but has no clinical implications. Patient presented with several months of increasing dysphagia, epigastric discomfort and weight loss. Patient is anemic most likely due to cancer and chronic GI blood loss from the esophageal carcinoma. Started combination chemotherapy immunotherapy with modified FOLFOX 6 nivolumab August 04, 2024. Treatment is tolerated with no grade 3 or 4 toxicities the patient is subjectively responding. Imaging in September 2024 shows significant remission of his disease. Chronic comorbid conditions: Coronary artery disease, cerebrovascular disease, dyslipidemia. Plan: Based on NCCN guidelines and up-to-date review of management of metastaticadenocarcinoma of the GE junction with a palliative intent plus or minus a modest survival benefit. 1. Continue combination systemic therapy with FOLFOX and nivolumab. Proceed with cycle 8 today. 2. Anemia; no evidence for iron deficiency supportive transfusion to maintain hemoglobin above 7 g per DL. 3. Elective imaging with CT scan of the chest and abdomen/pelvis every 3 months next to schedule end of December 2024. 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 October 27, 2024 8 :33am Esophageal cancer chronic October 8:33am Metastasis to liver chronic October 27, 2024 8:33am Pancreatic cancer chronic October 8:33am 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 October 27, 2024 8 :33am Encounter for antineoplastic immunotherapy acute November 11, 2024 8:30am Encounter for chemotherapy management acute November 11, 2024 8:30am 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 November 11, 2024 8:30am Esophageal cancer chronic November 112024 8:30am Metastasis to liver chronic November 11, 2024 8:30am Pancreatic cancer chronic November 112024 8:30am 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 November 11, 2024 8:30am 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 November 24, 2024 8 :32am Esophageal cancer chronic November 8:32am Metastasis to liver chronic November 24, 2024 8:32am Pancreatic cancer chronic November 8:32am 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 November 24, 2024 8 :32am 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 December 08, 2024 8:34am Esophageal cancer chronic December 082024 8:34am Metastasis to liver chronic December 08, 2024 8:34am Pancreatic cancer chronic December 082024 8:34am 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 December 08, 2024 8:34am 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 December 22, 2024 8:31am Esophageal cancer chronic December 222024 8:31am Metastasis to liver chronic December 22, 2024 8:31am Pancreatic cancer chronic December 222024 8:31am 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 December 22, 2024 8:31am 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 January 05 8:22am Esophageal cancer chronic January 05, 2025 8:22am Metastasis to liver chronic Aug2024 8:22am Pancreatic cancer chronic January 05, 2025 8:22am 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 January 05 8:22am 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 January 19 8:32am Esophageal cancer chronic January 19, 2025 8:32am Metastasis to liver chronic Augus t 2024 8:32am Pancreatic cancer chronic January 19, 2025 8:32am 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 January 19 8:32am Encounter for antineoplastic immunotherapy acute February 02 8:35am Encounter for chemotherapy management acute February 02 8:35am 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 February 02 8:35am Esophageal cancer chronic Septemb er 2024 8:35am [facility] Pancreatic cancer chronic Septemb er 2024 8:35am 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 February 02 8:35am 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 February 10, 2025 7:29am Esophageal cancer chronic Septemb er 2024 7:29am Metastasis to liver [facility] 7:29am 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 February 10, 2025 7:29am 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 February 16, 2025 8:28am Esophageal cancer chronic Sept[facility] er 2024 8:28am Metastasis to liver [facility] 2024 8:28am 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 February 16, 2025 8:28am [facility] Work Phone: [phone]) 779-566806-03-2025 Progress [facility] [address] [address] OFFICE VISIT Date of Service: 10/27/24905 MR#: [id number] Acct: [id number] Name: AMADO GALLARDO Rep #: [id number] : 1950 From: Zulay wills MD Age/Sex: 74/M [place] [facility] [place]: Signed HPI Subjective Date of Service 10/27/24 Chief Complaint Metastatic esophageal cancer History of Present Illness 74-year-old gentleman, who experienced increasing dysphagia, epigastric discomfort and 25 pound weight loss with onset around December 2023. June 15, 2024 CT chest abdomen and pelvis: IMPRESSION: Multiple new pulmonary nodules measuring up to 10 mm, concerning for pulmonary metastases. Mild pneumonia or pneumonitis in the lower lobes. Mild left supraclavicular and mediastinal lymphadenopathy, also concerning for metastasis. Multiple new liver masses, concerning for metastases. 1.5 cm pancreatic mass, suspicious for malignancy with mild retroperitoneal lymphadenopathy. Cholelithiasis. Right nephrolithiasis. June 23, 2024 upper EUS: Impression: 2 cm hypoechoic echoic mass was identified in the pancreatic body stage T2 N2 byEndo sonographic criteria. FNA obtained. A mass was found at the GE junction, tissue was obtained stage T3 N3 by endosonography criteria At least 2 suspected metastatic lesions in the liver. Many malignant appearing lymph nodes visualized in the lower paraesophageal mediastinum, gastrohepatic ligament, celiac region and peripancreatic region. June 25, 2024 pathology: EUS FNA pancreatic body mass malignant cells present the right from adenocarcinoma. Distal esophagus mass biopsy: Invasive moderate to poorly differentiated adenocarcinoma PD-L1 analysis GE junction adenocarcinoma, expressed (15) HER2 2+ by IHC, negative by FISH June 25, 2024 PET/CT initial stagin. Large intense metabolic mass at the GE junction extending to involve the adjacent stomach noted.This is highly suspicious for primary malignancy. 2. Extensive metastases involving bilateral lung parenchyma, right and left hepatic lobes noted. 3. Intense metabolic left supraclavicular node mediastinal and retroperitoneal nodes suspicious formetastasis. 4. Intense metabolic mass that appears to be within the body of the pancreas issuspicious for malignancy or metastases although cannot exclude meka metastasis. 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 October 21, 2024 CT chest abdomen and pelvis: IMPRESSION: Since prior study, there has been almost complete clearing of the previously seen nodules in the lower lobes of both lungs as well as the liver metastasis. Improvement of the hypodense lesion in the body of the pancreas. Gallstones. Treatment summary and response: FOLFOX nivolumab August 04, 2024-ID. [facility] Medical History (Updated 10/27/24 @ 09:[address] 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 Regional lymph node metastasis present Esophageal cancer Pancreatic cancer CAD (coronary artery disease) Cough with hemoptysis Wears glasses Prostate disease High cholesterol Former smoker History of echocardiogram Cardiology follow-up encounter Screen for colon cancer Hepatic cyst Carotid artery stenosis Dyspnea Anemia, mild Atonic bladder BPH (benign prostatic hyperplasia) Hyperlipidemia Hemoptysis Surgical History History of foot surgery History of colonoscopy (~2007) Family History Father Heart disease CHF (congestive heart failure) Myocardial infarction 60 Mother Heart disease CHF (congestive heart failure) Brother CAD (coronary artery disease), Onset Age: 40 stent placement Bladder cancer Brother CVA (cerebral vascular accident) Social History Smoking Status: Former smoker alcohol intake: current alcohol intake frequency: a few times a week Alcohol type: beer substance use type: does not use caffeine: Yes Type: coffee Number of servings: 1 what type of physical activity do you participate in: walking frequency: daily duration: 30-45 minutes/day ROS ROS Narrative I feel a lot better Constitutional Constitutional: Reports systems reviewed and no addt'l complaints, except as documented, fatigue and other Details: Last fatigue, able to do ADL and house duties at own pace ; Denies anorexia, fever(s), night sweats or weight loss Eyes Eyes: Reports systems reviewed and no addt'l complaints, except as documented ENT HEENT: Reports systems reviewed and no addt'l complaints, except as documented and other Details: Mouth lesions managed with BMX ; Denies mouth lesions Cardiovascular Cardiovascular: Reports systems reviewed and no addt'l complaints, except as documented; Denies chest pain with activity or edema Respiratory/Chest Respiratory/Chest: Reports systems reviewed and no addt'l complaints, except as documented; Denies cough, dyspnea on exertion or hemoptysis Gastrointestinal Gastrointestinal: Reports systems reviewed and no addt'l complaints, except as documented and constipation; Denies abdominal pain, anorexia, change in stool character, dysphagia, heartburn, hematochezia, melena, nausea or vomiting Genitourinary Genitourinary: Reports systems reviewed and no addt'l complaints, except as documented Musculoskeletal Musculoskeletal: Reports systems reviewed and no addt'l complaints, except as documented and other Details: A chronic injury of the right ankle, wears a brace; Denies back pain Integumentary Integumentary: Reports systems reviewed and no addt'l complaints, except as documented; Denies new lesions Neurologic Neurologic: Reports systems reviewed and no addt'l complaints, except as documented; Denies focal weakness or paresthesias Psychiatric Psychiatric: Reports systems reviewed and no addt'l complaints, except as documented Endocrine Endocrinology: Reports systems reviewed and no addt'l complaints, except as documented Hematologic/Lymphatic Hematologic/Lymphatic: Reports systems reviewed and no addt'l complaints, exceptas documented; Denies easy bleeding, easy bruising or lymphadenopathy Intake Vital Signs 10/13/24 09:37 10/13/24 10:25 10/27/24 09:12 10/27/24 09:15 Height 5 ft 10 in 5 ft 10 in 5 ft 10 in 5 ft 10 in Weight: 58.627 kg BMI 18.5 BP 118/75 Blood Pressure Location Lt brachial Position Sitting Respiration 18 Pulse 71 Pulse Source Monitor Temp 97.8 F Temperature Source Temporal Artery Pulse Oximetry (%) 97 Oxygen Delivery Method room air Intake Is patient in pain?: No Allergies No Known Allergies Allergy (Verified 10/27/24 09:11) Medications ?Medication ?Instructions ?Recorded ?Confirmed ?Type atorvastatin 40 mg tablet 40 mg PO DAILY 01/12/2108/18 History latanoprost 0.005 % eye drops 1 drp ophthalmic (eye) Q DAY 07/14/24 10/27/24 History lidocaine-prilocaine 2.5 %-2.5 % 1 applic topical ONCE PRN port 07/27/24 10/27/24 Rx topical cream access 30 days #30 grams ondansetron 8 mg disintegrating 8 mg PO Q8H PRN nausea and 07/27/24 10/27/24 Rx tablet vomiting #30 tabs prochlorperazine maleate 10 mg 10 mg PO Q6H PRN nausea and 07/27/24 10/27/24 Rx tablet vomiting #30 tabs oxycodone-acetaminophen 5 mg-325 1 tab PO Q8H PRN pain 3 days #5 07/30/24 10/27/24 Rx mg tablet (Percocet) tabs MAGIC MOUTH WASH (BMX) 180 mL 15 ml PO Q4H PRN Pain #1 80 mL 08/04/24 10/27/24 Rx suspension nystatin 100,000 unit/mL oral 5 ml PO TID #473 mL 08/2610/27/24 Rx suspension Have you fallen in the past year?: No Central Venous Access Central Venous Access: Yes Port/PICC: Port CBC, October 27, 2024 reviewed in EMR Exam Physical Exam Narrative ECOG 1 Const alert, oriented x3 and no apparent distress HEENT Face and Sinus: normal facial exam Mouth: oral and palatal mucosa normal and No thrush Eyes General Eye: normal appearance of both eyes Neck no lymphadenopathy and no JVD Chest Chest: vascular access Resp clear to auscultation bilaterally Cardio regular rate and regular rhythm Jugular Venous Distention: Negative for JVD GI soft to palpation, non-tender and non-distended; Negative for hepatosplenomegaly Back/Spine no thoracic nor lumbar tenderness Extremity no clubbing, cyanosis or edema Extremity Narrative: Right ankle brace Skin no rashes or lesions noted Neuro oriented x3, CN's II-XII intact bilaterally, moves all extremities and no focal motor deficits Coordination / Balance: [id number] test normal Speech: speech normal Gait (Neuro): normal gait Psych mental status grossly normal Coding Level of Care Code Off vis,est,level 4 Exam Problem Focused Diagnoses Malignant neoplasm of lower third of esophagus C15.5 Malignant neoplasm of esophagus location: lower third Regional lymph node metastasis present C77.9 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; C78.02 Metastasis to liver C78.7 Malignant neoplasm of body of pancreas C25.1 Pancreatic malignancy location: body of pancreas Assessment and Plan Assessment and Plan (1) Esophageal cancer: Status: Chronic Qualifiers: Malignant neoplasm of esophagus location: lower third Qualified Code(s): C15.5 - Malignant neoplasmof lower third of esophagus (2) Regional lymph node metastasis present: Status: Chronic (3) 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 Tumor is OCN5fsi overexpressed (IHC 2+ FISH negative) and PD-L1 over 1. An adenocarcinoma pathologically confirmed by FNA from the body of the pancreas in my opinion more likely metastases to adjacent lymph nodesrather than a second primary and less likely a second primary adenocarcinoma of the pancreas. The distinction is only of academic interest but has no clinical implications. Patient presented with several months of increasing dysphagia, epigastric discomfort and weight loss. Patient is anemic most likely due to cancer and chronic GI blood loss from the esophageal carcinoma. Started combination chemotherapy immunotherapy with modified FOLFOX 6 nivolumab August 04, 2024. Treatment is tolerated with no grade 3 or 4 toxicities the patient is subjectively responding. Imaging in September 2024 shows significant remission of his disease. Chronic comorbid conditions: Coronary artery disease, cerebrovascular disease, dyslipidemia. Plan: Based on NCCN guidelines and up-to-date review of management of metastaticadenocarcinoma of the GE junction with a palliative intent plus or minus a modest survival benefit. 1. Continue combination systemic therapy with FOLFOX and nivolumab. 2. Anemia; no evidence for iron deficiency supportive transfusion to maintain hemoglobin above 7 g per DL. 3. Nutrition consulted and patient was also referred to palliative care. 4. Elective imaging with CT scan of the chest and abdomen/pelvis every 3 monthsnext to schedule endof December 2024. Patient was seen, impression and plan discussed. Zulay Celis MD [employer], [facility] Divisions of Medical Oncology & Hematology Department of Internal Medicine [place] [id number] This note was generated using a voice recognition system software. Although itwas reviewed by the author prior to finalization, it may still contain incorrectwords, spelling, and punctuation that were not noted when reviewing prior to saving. If a clinically significant typo or inaccurately typed phrase is noted, please notify the author. Clinical Quality Measures Falls Risk Screening/Assistive Devices Have you fallen in the past year?: No 10/27/24 0942 alma AVINA> Date _ Zulay Celis MD Cosigner Signature: Date (if applicable) CC: [facility] ~ [facility] [id number] Radiology Diagnostic study note [facility] Imaging Services [address] [address] [address] Chest, Abd, Pel w/Contrast MR#: [id number] Acct: [id number] Name: AMADO GALLARDO Rep #: [id number] : 1950 M 74 From: Lamont Gómez MD PCP: [facility] Status: REG CLI Study:CT Chest, Abd, Pel w/Contrast Date of E xam: 10/21/24 Exam# [id number] Ordering Dr: Laurie Mayorga NP TECHNICAL PHOTOGRAPHER-C PROCEDURE: CT CHEST, ABD, PEL W/CONTRAST 10/21/2024 REASON FOR EXAM: IV PO CONTRAST; M ESOPHAGEAL CA TECHNIQUE: Chest, abdomen and pelvis CT with intravenous contrast. Coronal and Sagittal reconstruction series were provided. One or more dose reduction techniques were used (e.g., Automated exposure control, adjustment of the mA and/or kV according to patient size, use of iterative reconstruction technique. PATIENT PREPARATION: Per protocol ORAL CONTRAST TYPE: Given CONTRAST: Isovue 3 7 VOLUME: 100mL RADIATION DOSE SUMMARY: CTDlvol: 8 mGy DLP: 1255.8 mGycm COMPARISON: Prior study dated June 15, 2024. FINDINGS: CT CHEST: Hardware: A left-sided port a catheter is seen within the superior vena cava. Lymph nodes: Small benign-appearing mediastinal lymph nodes. Largest lymph nodemeasures 1.1 cm in the is in the precarinal space. Heart and Vasculature: The heart is nonenlarged coronary artery calcifications are seen. Atherosclerotic calcifications of the thoracic aorta. Pulmonary arteries are unremarkable. Lungs and Airways: Small calcified granuloma in the posterior aspect of the right middle lobe. Persistent area of ground-glass appearance and bronchiectasis in the right lower lobe. The previously seen nodular densities in theright lower lobe have almost completely resolved. Minimal residual ground-glass appearance in the posterior aspect of the lingula segment of the left upper lobe. The previously seen nodular density in the left lower lobe have resolved. Pleura: No evidence of pleural effusion. Bones: Degenerative changes of the thoracic spine. Stable bone island at the level of the T10 vertebrae. CT ABDOMEN/PELVIS: Liver: The previously seen heterogeneous nodules scattered throughout the liver of all. There. Gallbladder: Small gallstones are seen along the dependent portion of the gallbladder lumen. Spleen: Normal size. Pancreas: The previously seen hypoenhancing lesion in the body of the pancreas is not well seen at this time. Adrenals: Unremarkable Kidneys: Normal renal sizes. No hydronephrosis.. Stable 2 mm nonobstructive left intrarenal calculus. Bladder: Unremarkable Bowel: No bowel obstruction. Appendix: Unremarkable Lymph nodes: Unremarkable. Vasculature: Mild diffuse atherosclerotic calcifications are noted. Peritoneum / Retroperitoneum: Unremarkable Bones: Degenerative changes of the spine. CT/CT Chest, Abd, Pel w/Contrast IMPRESSION: Since prior study, there has been almost complete clearing of the previously seen nodules in the lower lobes of both lungs as well as the liver metastasis. Improvement of the hypodense lesion in the body of the pancreas. Gallstones. Reading Location: [id number] CC: CHLOE [place]; [facility] ~ [employer]: Signed 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 October 27, 2024 8 :33am Esophageal cancer chronic October 8:33am Metastasis to liver chronic October 27, 2024 8:33am Pancreatic cancer chronic October 8:33am 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 October 27, 2024 8 :33am Encounter for antineoplastic immunotherapy acute November 11, 2024 8:30am Encounter for chemotherapy management acute November 11, 2024 8:30am 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 November 11, 2024 8:30am Esophageal cancer chronic November 112024 8:30am Metastasis to liver chronic November 11, 2024 8:30am Pancreatic cancer chronic November 112024 8:30am 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 November 11, 2024 8:30am 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 November 24, 2024 8 :32am Esophageal cancer chronic November 8:32am Metastasis to liver chronic November 24, 2024 8:32am Pancreatic cancer chronic November 8:32am 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 November 24, 2024 8 :32am 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 December 08, 2024 8:34am Esophageal cancer chronic December 082024 8:34am Metastasis to liver chronic December 08, 2024 8:34am Pancreatic cancer chronic December 082024 8:34am 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 December 08, 2024 8:34am 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 December 22, 2024 8:31am Esophageal cancer chronic December 222024 8:31am Metastasis to liver chronic December 22, 2024 8:31am Pancreatic cancer chronic December 222024 8:31am 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 December 22, 2024 8:31am 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 January 05 8:22am Esophageal cancer chronic January 05, 2025 8:22am Metastasis to liver chronic Augus t 2024 8:22am Pancreatic cancer chronic January 05, 2025 8:22am 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 January 05 8:22am 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 January 19 8:32am Esophageal cancer chronic January 19, 2025 8:32am Metastasis to liver chronic Augus t 2024 8:32am Pancreatic cancer chronic January 19, 2025 8:32am 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 January 19 8:32am Encounter for antineoplastic immunotherapy acute February 02 8:35am Encounter for chemotherapy management acute February 02 8:35am 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 February 02 8:35am Esophageal cancer chronic Septemb er 2024 8:35am Metastasis to liver chronic Septe mber 2024 8:35am Pancreatic cancer chronic Septemb er 2024 8:35am 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 February 02 025 8:35am [facility] Work Phone: [phone] 164-824505-20-2025 [facility] [place] [address] OFFICE VISIT Date of Service: 10/13/24 0933 MR#: [id number] Acct: [id number] Name: AMADO GALLARDO Rep #: [id number] : 1950 From: Zulay wills MD Age/Sex: 74/M Location: [facility] [place].[facility] Status: Signed HPI Subjective Date of Service 10/13/24 Chief Complaint Metastatic esophageal cancer History of Present Illness 73-year-old gentleman, who experienced increasing dysphagia, epigastric discomfort and 25 pound weight loss with onset around December 2023. June 15, 2024 CT chest abdomen and pelvis: IMPRESSION: Multiple new pulmonary nodules measuring up to 10 mm, concerning for pulmonary metastases. Mild pneumonia or pneumonitis in the lower lobes. Mild left supraclavicular and mediastinal lymphadenopathy, also concerning for metastasis. Multiple new liver masses, concerning for metastases. 1.5 cm pancreatic mass, suspicious for malignancy with mild retroperitoneal lymphadenopathy. Cholelithiasis. Right nephrolithiasis. June 23, 2024 upper EUS: Impression: 2 cm hypoechoic echoic mass was identified in the pancreatic body stage T2 N2 byEndo sonographic criteria. FNA obtained. A mass was found at the GE junction, tissue was obtained stage T3 N3 by endosonography criteria At least 2 suspected metastatic lesions in the liver. Many malignant appearing lymph nodes visualized in the lower paraesophageal mediastinum, gastrohepatic ligament, celiac region and peripancreatic region. June 25, 2024 pathology: EUS FNA pancreatic body mass malignant cells present the right from adenocarcinoma. Distal esophagus mass biopsy: Invasive moderate to poorly differentiated adenocarcinoma PD-L1 analysis GE junction adenocarcinoma, expressed (15) HER2 2+ by IHC, negative by FISH June 25, 2024 PET/CT initial stagin. Large intense metabolic mass at the GE junction extending to involve the adjacent stomach noted.This is highly suspicious for primary malignancy. 2. Extensive metastases involving bilateral lung parenchyma, right and left hepatic lobes noted. 3. Intense metabolic left supraclavicular node mediastinal and retroperitoneal nodes suspicious formetastasis. 4. Intense metabolic mass that appears to be within the body of the pancreas issuspicious for malignancy or metastases although cannot exclude meka metastasis. 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 Treatment summary and response: FOLFOX nivolumab August 04, 2024. 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 Regional lymph node metastasis present Esophageal cancer Pancreatic cancer CAD (coronary artery disease) Cough with hemoptysis Wears glasses Prostate disease High cholesterol Former smoker History of echocardiogram Cardiology follow-up encounter Screen for colon cancer Hepatic cyst Carotid artery stenosis Dyspnea Anemia, mild Atonic bladder BPH (benign prostatic hyperplasia) Hyperlipidemia Hemoptysis Surgical History History of foot surgery History of colonoscopy (~2007) Family History Father Heart disease CHF (congestive heart failure) Myocardial infarction 60 Mother Heart disease CHF (congestive heart failure) Brother CAD (coronary artery disease), Onset Age: 40 stent placement Bladder cancer Brother CVA (cerebral vascular accident) Social History Smoking Status: Former smoker alcohol intake: current alcohol intake frequency: a few times a week Alcohol type: beer substance use type: does not use caffeine: Yes Type: coffee Number of servings: 1 what type of physical activity do you participate in: walking frequency: daily duration: 30-45 minutes/day ROS ROS Narrative I feel a lot better Constitutional Constitutional: Reports systems reviewed and no addt'l complaints, except as documented, fatigue and other Details: Last fatigue, able to do ADL and house duties at own pace ; Denies anorexia, fever(s), night sweats or weight loss Eyes Eyes: Reports systems reviewed and no addt'l complaints, except as documented ENT HEENT: Reports systems reviewed and no addt'l complaints, except as documented and other Details: Mouth lesions managed with BMX ; Denies mouth lesions Cardiovascular Cardiovascular: Reports systems reviewed and no addt'l complaints, except as documented; Denies chest pain with activity or edema Respiratory/Chest Respiratory/Chest: Reports systems reviewed and no addt'l complaints, except as documented; Denies cough, dyspnea on exertion or hemoptysis Gastrointestinal Gastrointestinal: Reports systems reviewed and no addt'l complaints, except as documented, constipation, dysphagia and other Details: Dysphagia significantly better ; Denies abdominal pain, anorexia, change in stool character, heartburn, hematochezia, melena, nauseaor vomiting Genitourinary Genitourinary: Reports systems reviewed and no addt'l complaints, except as documented Musculoskeletal Musculoskeletal: Reports systems reviewed and no addt'l complaints, except as documented and other Details: A chronic injury of the right ankle, wears a brace; Denies back pain Integumentary Integumentary: Reports systems reviewed and no addt'l complaints, except as documented; Denies new lesions Neurologic Neurologic: Reports systems reviewed and no addt'l complaints, except as documented; Denies focal weakness or paresthesias Psychiatric Psychiatric: Reports systems reviewed and no addt'l complaints, except as documented Endocrine Endocrinology: Reports systems reviewed and no addt'l complaints, except as documented Hematologic/Lymphatic Hematologic/Lymphatic: Reports systems reviewed and no addt'l complaints, exceptas documented; Denies easy bleeding, easy bruising or lymphadenopathy Intake Vital Signs 09/15/24 09:53 10/13/24 09:34 10/13/24 09:37 Height 5 ft 10 in 5 ft 10 in 5 ft 10 in Weight: 58.117 kg BMI 18.3 BP 116/76 Blood Pressure Location Lt brachial Position Sitting Respiration 16 Pulse 69 Pulse Source Monitor Temp 97.8 F Temperature Source Temporal Artery Pulse Oximetry (%) 95 Oxygen Delivery Method room air Intake Is patient in pain?: No Allergies No Known Allergies Allergy (Verified 10/13/24 09:36) Medications ?Medication ?Instructions ?Recorded ?Confirmed ?Type atorvastatin 40 mg tablet 40 mg PO DAILY 01/12/21/ History latanoprost 0.005 % eye drops 1 drp ophthalmic (eye) Q DAY 07/14/24 10/13/24 History lidocaine-prilocaine 2.5 %-2.5 % 1 applic topical ONCE PRN port 07/27/24 10/13/24 Rx topical cream access 30 days #30 grams ondansetron 8 mg disintegrating 8 mg PO Q8H PRN nausea and 07/27/24 10/13/24 Rx tablet vomiting #30 tabs prochlorperazine maleate 10 mg 10 mg PO Q6H PRN nausea and 07/27/24 10/13/24 Rx tablet vomiting #30 tabs oxycodone-acetaminophen 5 mg-325 1 tab PO Q8H PRN pain 3 days #5 07/30/24 10/13/24 Rx mg tablet (Percocet) tabs MAGIC MOUTH WASH (BMX) 180 mL 15 ml PO Q4H PRN Pain #1 80 mL 08/04/24 10/13/24 Rx suspension nystatin 100,000 unit/mL oral 5 ml PO TID #473 mL 08/2610/13/24 Rx suspension Have you fallen in the past year?: No Central Venous Access Central Venous Access: Yes Port/PICC: Port CBC, CMP October 13, 2024 reviewed in a.m. Exam Physical Exam Narrative ECOG 1 Const alert, oriented x3 and no apparent distress HEENT Face and Sinus: normal facial exam Mouth: oral and palatal mucosa normal and No thrush Eyes General Eye: normal appearance of both eyes Neck no lymphadenopathy and no JVD Chest Chest: vascular access Resp clear to auscultation bilaterally Cardio regular rate and regular rhythm Jugular Venous Distention: Negative for JVD GI soft to palpation, non-tender and non-distended; Negative for hepatosplenomegaly Back/Spine no thoracic nor lumbar tenderness Extremity no clubbing, cyanosis or edema Extremity Narrative: Right ankle brace Skin no rashes or lesions noted Neuro oriented x3, CN's II-XII intact bilaterally, moves all extremities and no focal motor deficits Coordination / Balance: [id number] test normal Speech: speech normal Gait (Neuro): normal gait Psych mental status grossly normal Coding Level of Care Code Off vis,est,level 4 Exam Problem Focused Diagnoses Malignant neoplasm of lower third of esophagus C15.5 Malignant neoplasm of esophagus location: lower third Regional lymph node metastasis present C77.9 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; C78.02 Metastasis to liver C78.7 Malignant neoplasm of body of pancreas C25.1 Pancreatic malignancy location: body of pancreas Assessment and Plan Assessment and Plan (1) Esophageal cancer: Status: Acute Qualifiers: Malignant neoplasm of esophagus location: lower third Qualified Code(s): C15.5 - Malignant neoplasmof lower third of esophagus (2) Regional lymph node metastasis present: Status: Acute (3) 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 Tumor is [id number] overexpressed (IHC 2+ FISH negative) and PD-L1 over 1. An adenocarcinoma pathologically confirmed by FNA from the body of the pancreas in my opinion more likely metastases to adjacent lymph nodesrather than a second primary and less likely a second primary adenocarcinoma of the pancreas. The distinction is only of academic interest but has no clinical implications. Patient presented with several months of increasing dysphagia, epigastric discomfort and weight loss. Patient is anemic most likely due to cancer and chronic GI blood loss from the esophageal carcinoma. Started combination chemotherapy immunotherapy with modified FOLFOX 6 nivolumab August 04, 2024. Treatment is tolerated with no grade 3 or 4 toxicities the patient is subjectively responding. Chronic comorbid conditions: Coronary artery disease, cerebrovascular disease, dyslipidemia. Plan: Based on NCCN guidelines and up-to-date review of management of metastaticadenocarcinoma of the GE junction with a palliative intent plus or minus a modest survival benefit. 1. Continue combination systemic therapy with FOLFOX and nivolumab. 2. Anemia; no evidence for iron deficiency supportive transfusion to maintain hemoglobin above 7 g per DL. 3. Nutrition consulted and patient was also referred to palliative care. 4. Elective imaging with CT scan of the chest and abdomen/pelvis after cycle 6. Patient was seen, impression and plan discussed. Zulay Celis MD [employer], [facility] Divisions of Medical Oncology & Hematology Department of Internal Medicine [place] [id number] This note was generated using a voice recognition system software. Although itwas reviewed by the author prior to finalization, it may still contain incorrectwords, spelling, and punctuation that were not noted when reviewing prior to saving. If a clinically significant typo or inaccurately typed phrase is noted, please notify the author. Clinical Quality Measures Falls Risk Screening/Assistive Devices Have you fallen in the past year?: No 10/13/24 1003 alma AVINA> Date _ Zulay Celis MD Cosigner Signature: Date (if applicable) CC: ~ [facility]05-20-2025 Progress note Author Zulay Celis [facility] Note Date/Time October 13, 2024 10:03 am [facility] [address] [place] [address] OFFICE VISIT Date of Service: 10/13/24932 MR#: [id number] Acct: [id number] Name: AMADO GALLARDO Rep #: [id number] : 1950 From: Zulay wills MD Age/Sex: 74/M [place] [facility] [place] Signed HPI Subjective Date of Service 10/13/24 Chief Complaint Metastatic esophageal cancer History of Present Illness 73-year-old gentleman, who experienced increasing dysphagia, epigastric discomfort and 25 pound weight loss with onset around December 2023. June 15, 2024 CT chest abdomen and pelvis: IMPRESSION: Multiple new pulmonary nodules measuring up to 10 mm, concerning for pulmonary metastases. Mild pneumonia or pneumonitis in the lower lobes. Mild left supraclavicular and mediastinal lymphadenopathy, also concerning for metastasis. Multiple new liver masses, concerning for metastases. 1.5 cm pancreatic mass, suspicious for malignancy with mild retroperitoneal lymphadenopathy. Cholelithiasis. Right nephrolithiasis. June 23, 2024 upper EUS: Impression: 2 cm hypoechoic echoic mass was identified in the pancreatic body stage T2 N2 byEndo sonographic criteria. FNA obtained. A mass was found at the GE junction, tissue was obtained stage T3 N3 by endosonography criteria At least 2 suspected metastatic lesions in the liver. Many malignant appearing lymph nodes visualized in the lower paraesophageal mediastinum, gastrohepatic ligament, celiac region and peripancreatic region. June 25, 2024 pathology: EUS FNA pancreatic body mass malignant cells present the right from adenocarcinoma. Distal esophagus mass biopsy: Invasive moderate to poorly differentiated adenocarcinoma PD-L1 analysis GE junction adenocarcinoma, expressed (15) HER2 2+ by IHC, negative by FISH June 25, 2024 PET/CT initial stagin. Large intense metabolic mass at the GE junction extending to involve the adjacent stomach noted. This is highly suspicious for primary malignancy. 2. Extensive metastases involving bilateral lung parenchyma, right and left hepatic lobes noted. 3. Intense metabolic left supraclavicular node mediastinal and retroperitoneal nodes suspicious for metastasis. 4. Intense metabolic mass that appears to be within the body of the pancreas issuspicious for malignancy or metastases although cannot exclude meka metastasis. 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 Treatment summary and response: FOLFOX nivolumab August 04, 2024. 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 Regional lymph node metastasis present Esophageal cancer Pancreatic cancer CAD (coronary artery disease) Cough with hemoptysis Wears glasses Prostate disease High cholesterol Former smoker History of echocardiogram Cardiology follow-up encounter Screen for colon cancer Hepatic cyst Carotid artery stenosis Dyspnea Anemia, mild Atonic bladder BPH (benign prostatic hyperplasia) Hyperlipidemia Hemoptysis Surgical History History of foot surgery History of colonoscopy (~2007) Family History Father Heart disease CHF (congestive heart failure) Myocardial infarction 60 Mother Heart disease CHF (congestive heart failure) Brother CAD (coronary artery disease), Onset Age: 40 stent placement Bladder cancer Brother CVA (cerebral vascular accident) Social History Smoking Status: Former smoker alcohol intake: current alcohol intake frequency: a few times a week Alcohol type: beer substance use type: does not use caffeine: Yes Type: coffee Number of servings: 1 what type of physical activity do you participate in: walking frequency: daily duration: 30-45 minutes/day ROS ROS Narrative I feel a lot better Constitutional Constitutional: Reports systems reviewed and no addt'l complaints, except as documented, fatigue and other Details: Last fatigue, able to do ADL and house duties at own pace ; Denies anorexia, fever(s), night sweats or weight loss Eyes Eyes: Reports systems reviewed and no addt'l complaints, except as documented ENT HEENT: Reports systems reviewed and no addt'l complaints, except as documented and other Details: Mouth lesions managed with BMX ; Denies mouth lesions Cardiovascular Cardiovascular: Reports systems reviewed and no addt'l complaints, except as documented; Denies chest pain with activity or edema Respiratory/Chest Respiratory/Chest: Reports systems reviewed and no addt'l complaints, except as documented; Denies cough, dyspnea on exertion or hemoptysis Gastrointestinal Gastrointestinal: Reports systems reviewed and no addt'l complaints, except as documented, constipation, dysphagia and other Details: Dysphagia significantly better ; Denies abdominal pain, anorexia, change in stool character, heartburn, hematochezia, melena, nausea or vomiting Genitourinary Genitourinary: Reports systems reviewed and no addt'l complaints, except as documented Musculoskeletal Musculoskeletal: Reports systems reviewed and no addt'l complaints, except as documented and other Details: A chronic injury of the right ankle, wears a brace; Denies back pain Integumentary Integumentary: Reports systems reviewed and no addt'l complaints, except as documented; Denies new lesions Neurologic Neurologic: Reports systems reviewed and no addt'l complaints, except as documented; Denies focal weakness or paresthesias Psychiatric Psychiatric: Reports systems reviewed and no addt'l complaints, except as documented Endocrine Endocrinology: Reports systems reviewed and no addt'l complaints, except as documented Hematologic/Lymphatic Hematologic/Lymphatic: Reports systems reviewed and no addt'l complaints, exceptas documented; Denies easy bleeding, easy bruising or lymphadenopathy Intake Vital Signs 09/15/24 09:53 10/13/24 09:34 10/13/24 09:37 Height 5 ft 10 in 5 ft 10 in 5 ft 10 in Weight: 58.117 kg BMI 18.3 BP 116/76 Blood Pressure Location Lt brachial Position Sitting Respiration 16 Pulse 69 Pulse Source Monitor Temp 97.8 F Temperature Source Temporal Artery Pulse Oximetry (%) 95 Oxygen Delivery Method room air Intake Is patient in pain?: No Allergies No Known Allergies Allergy (Verified 10/13/24 09:36) Medications ?Medication ?Instructions ?Recorded ?Confirmed ?Type atorvastatin 40 mg tablet 40 mg PO DAILY 01/12/2109/25 History latanoprost 0.005 % eye drops 1 drp ophthalmic (eye) Q DAY 07/14/24 10/13/24 History lidocaine-prilocaine 2.5 %-2.5 % 1 applic topical ONCE PRN port 07/27/24 10/13/24 Rx topical cream access 30 days #30 grams ondansetron 8 mg disintegrating 8 mg PO Q8H PRN nausea and 07/27/24 10/13/24 Rx tablet vomiting #30 tabs prochlorperazine maleate 10 mg 10 mg PO Q6H PRN nausea and 07/27/24 10/13/24 Rx tablet vomiting #30 tabs oxycodone-acetaminophen 5 mg-325 1 tab PO Q8H PRN pain 3 days #5 07/30/24 10/13/24 Rx mg tablet (Percocet) tabs MAGIC MOUTH WASH (BMX) 180 mL 15 ml PO Q4H PRN Pain #1 80 mL 08/04/24 10/13/24 Rx suspension nystatin 100,000 unit/mL oral 5 ml PO TID #473 mL 08/2610/13/24 Rx suspension Have you fallen in the past year?: No Central Venous Access Central Venous Access: Yes Port/PICC: Port CBC, CMP October 13, 2024 reviewed in a.m. Exam Physical Exam Narrative ECOG 1 Const alert, oriented x3 and no apparent distress HEENT Face and Sinus: normal facial exam Mouth: oral and palatal mucosa normal and No thrush Eyes General Eye: normal appearance of both eyes Neck no lymphadenopathy and no JVD Chest Chest: vascular access Resp clear to auscultation bilaterally Cardio regular rate and regular rhythm Jugular Venous Distention: Negative for JVD GI soft to palpation, non-tender and non-distended; Negative for hepatosplenomegaly Back/Spine no thoracic nor lumbar tenderness Extremity no clubbing, cyanosis or edema Extremity Narrative: Right ankle brace Skin no rashes or lesions noted Neuro oriented x3, CN's II-XII intact bilaterally, moves all extremities and no focal motor deficits Coordination / Balance: [id number] test normal Speech: speech normal Gait (Neuro): normal gait Psych mental status grossly normal Coding Level of Care Code Off vis,est,level 4 Exam Problem Focused Diagnoses Malignant neoplasm of lower third of esophagus C15.5 Malignant neoplasm of esophagus location: lower third Regional lymph node metastasis present C77.9 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; C78.02 Metastasis to liver C78.7 Malignant neoplasm of body of pancreas C25.1 Pancreatic malignancy location: body of pancreas Assessment and Plan Assessment and Plan (1) Esophageal cancer: Status: Acute Qualifiers: Malignant neoplasm of esophagus location: lower third Qualified Code(s): C15.5 - Malignant neoplasm of lower third of esophagus (2) Regional lymph node metastasis present: Status: Acute (3) 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 Tumor is HER2 not overexpressed (IHC 2+ FISH negative) and PD-L1 over 1. An adenocarcinoma pathologically confirmed by FNA from the body of the pancreas in my opinion more likely metastases to adjacent lymph nodes rather than a second primary and less likely a second primary adenocarcinoma of the pancreas. The distinction is only of academic interest but has no clinical implications. Patient presented with several months of increasing dysphagia, epigastric discomfort and weight loss. Patient is anemic most likely due to cancer and chronic GI blood loss from the esophageal carcinoma. Started combination chemotherapy immunotherapy with modified FOLFOX 6 nivolumab August 04, 2024. Treatment is tolerated with no grade 3 or 4 toxicities the patient is subjectively responding. Chronic comorbid conditions: Coronary artery disease, cerebrovascular disease, dyslipidemia. Plan: Based on NCCN guidelines and up-to-date review of management of metastaticadenocarcinoma of the GE junction with a palliative intent plus or minus a modest survival benefit. 1. Continue combination systemic therapy with FOLFOX and nivolumab. 2. Anemia; no evidence for iron deficiency supportive transfusion to maintain hemoglobin above 7 g per DL. 3. Nutrition consulted and patient was also referred to palliative care. 4. Elective imaging with CT scan of the chest and abdomen/pelvis after cycle 6. Patient was seen, impression and plan discussed. Zulay Celis MD [employer], [facility] Divisions of Medical Oncology & Hematology Department of Internal Medicine [place] [id number] This note was generated using a voice recognition system software. Although itwas reviewed by the author prior to finalization, it may still contain incorrectwords, spelling, and punctuation that were not noted when reviewing prior to saving. If a clinically significant typo or inaccurately typed phrase is noted, please notify the author. 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 September 29, 2024 8: 36am Esophageal cancer chronic September 8:36am Metastasis to liver chronic September 292024 8:36am Pancreatic cancer chronic September 8:36am 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 September 29, 2024 8: 36am Malignant cachexia resolved September h2024 8:36am 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 October 13, 2024 8 :36am Esophageal cancer chronic September 8:36am Metastasis to liver chronic September 252024 8:36am Pancreatic cancer chronic September h2024 8:36am 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 October 13, 2024 8 :36am 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 October 27, 2024 8 :33am Esophageal cancer chronic October 8:33am Metastasis to liver chronic October 27, 2024 8:33am Pancreatic cancer chronic October 8:33am 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 October 27, 2024 8 :33am Encounter for antineoplastic immunotherapy acute November 11, 2024 8:30am Encounter for chemotherapy management acute November 11, 2024 8:30am 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 November 11, 2024 8:30am Esophageal cancer chronic November 112024 8:30am Metastasis to liver chronic November 11, 2024 8:30am Pancreatic cancer chronic November 112024 8:30am 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 November 11, 2024 8:30am 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 November 24, 2024 8 :32am Esophageal cancer chronic November 8:32am Metastasis to liver chronic November 24, 2024 8:32am Pancreatic cancer chronic November 8:32am 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 November 24, 2024 8 :32am 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 December 08, 2024 8:34am Esophageal cancer chronic December 082024 8:34am Metastasis to liver chronic December 08, 2024 8:34am Pancreatic cancer chronic December 082024 8:34am 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 December 08, 2024 8:34am 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 December 22, 2024 8:31am Esophageal cancer chronic December 222024 8:31am Metastasis to liver chronic December 22, 2024 8:31am Pancreatic cancer chronic December 222024 8:31am 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 December 22, 2024 8:31am 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 January 05 8:22am Esophageal cancer chronic January 05, 2025 8:22am Metastasis to liver chronic Augus 2024 8:22am Pancreatic cancer chronic January 05, 2025 8:22am 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 January 05 8:22am 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 The cardiomediastinal silhouette is within normal limits of size. Negative for pleural effusion or pneumothorax. The lungs areclear. Negative for acute osseous abnormality. [id number] NotePROCEDURE: XR CHEST 2 VIEWS DATE OF EXAM: 09/18/2024 1:15 PM DEMOGRAPHICS: 74 years old Male INDICATION: pleural effusions Comparison: None FINDINGS: Left chest port in place with its distal tip at the cavoatrial junction. The cardiomediastinal silhouette is within normal limits of size. Negative for pleural effusion or pneumothorax. The lungs areclear. Negative for acute osseous abnormality. IMPRESSION: 1. Negative for acute cardiopulmonary disease. 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 September 15, 2024 8:07am Esophageal cancer chronic August 262024 8:07am Metastasis to liver chronic September 15, 2024 8:07am Pancreatic cancer chronic August 262024 8:07am 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 September 15, 2024 8:07am Malignant cachexia resolved September 15, 2024 8:07am 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 September 29, 2024 8: 36am Esophageal cancer chronic September 8:36am Metastasis to liver chronic September 292024 8:36am Pancreatic cancer chronic September 8:36am 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 September 29, 2024 8: 36am Malignant cachexia resolved September 8:36am 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 October 13, 2024 8 :36am Esophageal cancer chronic September 8:36am Metastasis to liver chronic September 252024 8:36am Pancreatic cancer chronic September 8:36am 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 October 13, 2024 8 :36am 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 October 27, 2024 8 :33am Esophageal cancer chronic October 8:33am Metastasis to liver chronic October 27, 2024 8:33am Pancreatic cancer chronic October 8:33am 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 October 27, 2024 8 :33am Encounter for antineoplastic immunotherapy acute November 11, 2024 8:30am Encounter for chemotherapy management acute November 11, 2024 8:30am 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 November 11, 2024 8:30am Esophageal cancer chronic November 112024 8:30am Metastasis to liver chronic November 11, 2024 8:30am Pancreatic cancer chronic November 112024 8:30am 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 November 11, 2024 8:30am 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 November 24, 2024 8 :32am Esophageal cancer chronic November 8:32am Metastasis to liver chronic November 24, 2024 8:32am Pancreatic cancer chronic November 8:32am 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 November 24, 2024 8 :32am 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 December 08, 2024 8:34am Esophageal cancer chronic December 082024 8:34am Metastasis to liver chronic December 08, 2024 8:34am Pancreatic cancer chronic December 082024 8:34am Regional lymph node metastas is present December 08, 2024 8:34am 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 December 22, 2024 8:31am Esophageal cancer chronic December 222024 8:31am Metastasis to liver chronic December 22, 2024 8:31am Pancreatic cancer chronic December 222024 8:31am 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 December 22, 2024 8:31am 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 January 05 8:22am Esophageal cancer chronic January 05, 2025 8:22am Metastasis to liver chronic 2024 8:22am Pancreatic cancer chronic January 05, 2025 8:22am 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 January 05 8:22am [place] [employer] [facility] Work Phone: 1(309) 651-524303-31-2025 Evaluation note* Diagnosis Onset Date Resolution Status Admit Date 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 August 24, 2024 1:30pm Esophageal cancer chronic July 272024 1:30pm Metastasis to liver chronic August 24, 2024 1:30pm Pancreatic cancer chronic July 272024 1:30pm 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 August 24, 2024 1:30pm Malignant cachexia resolved August 24, 2024 1:30pm Encounter for chemotherapy management acute September 01, 2024 7:43am 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 September 01, 2024 7:43am Esophageal cancer chronic September 012024 7:43am Metastasis to liver chronic September 01, 2024 7:43am Pancreatic cancer chronic September 012024 7:43am 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 September 01, 2024 7:43am Malignant cachexia resolved September 01, 2024 7:43am Encounter for antineoplastic immunotherapy acute September 15, 2024 8:07am Encounter for chemotherapy management acute September 15, 2024 8:07am 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 September 15, 2024 8:07am Esophageal cancer chronic August 262024 8:07am Metastasis to liver chronic September 15, 2024 8:07am Pancreatic cancer chronic August 262024 8:07am 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 September 15, 2024 8:07am Malignant cachexia resolved September 15, 2024 8:07am 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 September 29, 2024 8: 36am Esophageal cancer chronic September 8:36am Metastasis to liver chronic September 292024 8:36am Pancreatic cancer chronic September 8:36am 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 September 29, 2024 8: 36am Malignant cachexia resolved September 8:36am 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 October 13, 2024 8 :36am Esophageal cancer chronic September h2024 8:36am Metastasis to liver chronic September 252024 8:36am Pancreatic cancer chronic September 8:36am 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 October 13, 2024 8 :36am 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 October 27, 2024 8 :33am Esophageal cancer chronic October 8:33am Metastasis to liver chronic October 27, 2024 8:33am Pancreatic cancer chronic October 8:33am 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 October 27, 2024 8 :33am Encounter for antineoplastic immunotherapy acute November 11, 2024 8:30am Encounter for chemotherapy management acute November 11, 2024 8:30am 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 November 11, 2024 8:30am Esophageal cancer chronic November 112024 8:30am Metastasis to liver chronic November 11, 2024 8:30am Pancreatic cancer chronic November 112024 8:30am 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 November 11, 2024 8:30am 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 November 24, 2024 8 :32am Esophageal cancer chronic November 8:32am Metastasis to liver chronic November 24, 2024 8:32am Pancreatic cancer chronic November 8:32am 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 November 24, 2024 8 :32am 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 December 08, 2024 8:34am Esophageal cancer chronic December 082024 8:34am Metastasis to liver chronic December 08, 2024 8:34am Pancreatic cancer chronic December 082024 8:34am 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 December 08, 2024 8:34am 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 December 22, 2024 8:31am Esophageal cancer chronic December 222024 8:31am Metastasis to liver chronic December 22, 2024 8:31am Pancreatic cancer chronic December 222024 8:31am 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 December 22, 2024 8:31am [facility] Work Phone: 1(612) 701-143703-18-2025 Evaluation note* Diagnosis Onset Date Resolution Status Admit Date 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 August 11, 2024 2:01pm Esophageal cancer chronic July 252024 2:01pm Metastasis to liver chronic August 11, 2024 2:01pm Pancreatic cancer chronic July 252024 2:01pm 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 August 11, 2024 2:01pm Malignant cachexia resolved August 11, 2024 2:01pm Diarrhea acute August 18 8:08am 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 August 18, 2024 8:08am Esophageal cancer chronic July 262024 8:08am Metastasis to liver chronic August 18, 2024 8:08am Pancreatic cancer chronic July 262024 8:08am 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 August 18, 2024 8:08am Malignant cachexia resolved August 18, 2024 8:08am 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 August 24, 2024 1:30pm Esophageal cancer chronic July 272024 1:30pm Metastasis to liver chronic August 24, 2024 1:30pm Pancreatic cancer chronic July 272024 1:30pm 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 August 24, 2024 1:30pm Malignant cachexia resolved August 24, 2024 1:30pm Encounter for chemotherapy management acute September 01, 2024 7:43am 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 September 01, 2024 7:43am Esophageal cancer chronic September 012024 7:43am Metastasis to liver chronic September 01, 2024 7:43am Pancreatic cancer chronic September 012024 7:43am 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 September 01, 2024 7:43am Malignant cachexia resolved September 01, 2024 7:43am Encounter for antineoplastic immunotherapy acute September 15, 2024 8:07am Encounter for chemotherapy management acute September 15, 2024 8:07am 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 September 15, 2024 8:07am Esophageal cancer chronic August 262024 8:07am Metastasis to liver chronic September 15, 2024 8:07am Pancreatic cancer chronic August 262024 8:07am 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 September 15, 2024 8:07am Malignant cachexia resolved September 15, 2024 8:07am 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 September 29, 2024 8: 36am Esophageal cancer chronic September 8:36am Metastasis to liver chronic September 292024 8:36am Pancreatic cancer chronic September 8:36am 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 September 29, 2024 8: 36am Malignant cachexia resolved September 8:36am 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 October 13, 2024 8 :36am Esophageal cancer chronic September 8:36am Metastasis to liver chronic September 252024 8:36am Pancreatic cancer chronic September 8:36am 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 October 13, 2024 8 :36am 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 October 27, 2024 8 :33am Esophageal cancer chronic October 8:33am Metastasis to liver chronic October 27, 2024 8:33am Pancreatic cancer chronic October 8:33am 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 October 27, 2024 8 :33am Encounter for antineoplastic immunotherapy acute November 11, 2024 8:30am Encounter for chemotherapy management acute November 11, 2024 8:30am 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 November 11, 2024 8:30am Esophageal cancer chronic November 112024 8:30am Metastasis to liver chronic November 11, 2024 8:30am Pancreatic cancer chronic November 112024 8:30am 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 November 11, 2024 8:30am 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 November 24, 2024 8 :32am Esophageal cancer chronic November 8:32am Metastasis to liver chronic November 24, 2024 8:32am Pancreatic cancer chronic November 8:32am 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 November 24, 2024 8 :32am 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 Note Date/Time July 30, 2024 11:5 2am [facility] Medical Records Department [address] [place] [address] Pre-Anesthesia Evaluation 07/30/24 1145 MR#: [id number] Acct: [id number] Name: AMADO GALLARDO Rep #:[id number] : 1950 73 From: Sandoval Kuo MD PCP: [facility] Status:REG MTC Y Race: C Location: [place] [address] ASA Classification* ASA Classification ASA Classification: 3 Assessment & Plan Anesthesia* Anesthesia Assessment Anesthesia Assessment: Discussed sedation and/or anesthesia options, risks, benefits, and alternatives with patient/parents/legal guardian/POA. Questions invited. The patient/parents/legal guardian/POA seems to understand and agrees to proceedwith anesthesia plan. Reviewed the physical assessment, medical history, allergy history and patient home medications list prior to surgery/procedure/anesthetic and documented any changes. Performed airway and anesthesia risk assessments. Anesthesia Type Anesthesia Type: MAC History Source History Obtained from:: Patient and Chart Anesthesia Focused Assessment* Temperature: 97.3 F Pulse Rate: 76 Blood Pressure: 119/63 Respiratory Rate: 16 Pulse Ox: 98 Oxygen Delivery Method: Room Air Airway Assessment Mouth opens: >3 cm Mallampati Score: I Teeth Condition: Missing (Patient has had a couple pulled molars.) Neck Range of motion (ROM): Full ROM Focused Labs Anesthesia Preop lab: CBC WBC 12.8 K/mm3 (4.4-11.0) H 07/20/24 10:20 5 RBC 2.61 M/mm3 (4.6-6.2) L 07/20/24 10:20 07/20/24 Hgb 8.1 g/dL (13.0-16.5) L 07/20/24 10:20 07/20/24 Hct 26.0 % (40-54) L 07/20/24 10:20 07/20/24 Plt Count 619 K/mm3 (150-450) H 07/20/24 10:20 07/20/24 CHEMISTRY Potassium 3.8 mmol/L (3.5-5.1) 07/20/24 10:20 07/20/24 Sodium 138 mmol/L (136-145) 07/20/24 10:20 07/20/24 BUN 17 mg/dL (7-18) 07/20/24 10:20 07/20/24 Creatinine 0.79 mg/dL (0.70-1.30) 07/20/24 10:20 07/20/24 Glucose 113 mg/dL (74-106) H 07/20/24 10:20 07/20/24 COAG PT 12.9 SECONDS (11.7-14.9) 03/11/23 04:48 Pre-Assessment Diagnosis/Proposed Procedure Planned Operative Procedure(s): INSERTION VASCULAR PORT Anesthesia History Anesthesia History - behavioral health assistant: Anesthesia History - behavioral health assistant Hx Hospitalization No 07/28/24 08:43 Any Problems With Anesthesia No 07/28/24 08:43 Cholinesterase deficiency No 07/28/24 08:43 You/Your Family Experience No 07/28/24 08:43 fever (hyperthermia) with Relationship Recent Exposure to Contagious No 07/30/24 11:05 Disease Does patient have nerve No 07/28/24 08:43 stimulator Patient instructed to have device shut off --Does patient have Pacemaker No 07/30/24 11:05 or ICD? When Was Last Pacemaker Check QUESTION #4 FULL TEXT: You/Your Family Experience fever (hyperthermia) with Anesthesia Last Oral Intake Last Oral intake: Last Oral Intake NPO since 21:00 07/30/24 11:05 Meds taken in AM with sips of No 07/30/24 11:05 water? Meds patient instructed to take am of surgery PONV PONV - behavioral health assistant: PONV - behavioral health assistant Female No 07/28/24 08:43 HX of Motion Sickness No 07/28/24 08:43 HX of N/V After Surgery No 07/28/24 08:43 Non-Smoker Yes 07/28/24 08:43 Duration of Surgery greater No 07/28/24 08:43 than 60 minutes Number of Risk Factors 1 07/28/24 08:43 PONV Score Low Risk 07/28/24 08:43 Height & Weight Height & Weight: Anesthesia: Height & Weight Height 5 ft 10 in 07/30/24 11:05 Weight: 57 kg 07/30/24 11:05 Body Mass Index (BMI) 18.0 07/30/24 11:05 Respiratory Assessment Respiratory Assessment - behavioral health assistant: Respiratory Tract Infection Hx - behavioral health assistant Hx Respiratory Tract Infection No 07/28/24 08:43 STOP Sleep Apnea STOP Sleep Apnea - behavioral health assistant: STOP Sleep Apnea - behavioral health assistant Hx Hypertension No 07/28/24 08:43 Hx Sleep Apnea No 07/28/24 08:43 CPAP No 01/31/21 09:30 BIPAP Do you snore loudly (louder No 07/28/24 08:43 than talking or can be heard Do you often feel tired/ No 07/28/24 08:43 fatigued/ sleepy during daytime? Has anyone observed you stop No 07/28/24 08:43 breathing during sleep? STOP Results Negative 07/28/24 08:43 QUESTION #5 FULL TEXT : Do you snore loudly (louder than talking or can be heard through closed doors)? 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 Specify any problems Hx of Preganancy in last 3 N/A 07/28/24 08:43 Months Nurse Filling Out Transfusion [id number] 07/28/24 08:43 & Questions: Date: 07/28/24 07/28/24 08:43 Time: 08:46 07/28/24 08:43 Patient unable to answer at this time (ie. confused, unrespo /Reproduction History /Reproductive History - behavioral health assistant: /Reproductive Hx- behavioral health assistant Hx Now Gestational Age (in weeks): EDC: Hx Hx Para Hx Section SAB Active Medications Active Medications: Current Medications Generic Name Dose Route Start Last Admin Trade Name Freq PRN Reason Stop Dose Admin Cefazolin Sodium 2 gm/ N/A 20 mls @ 400 mls/hr 07/30/24 12:30 IV 07/30/24 12:32 PREOP ONE PFSH Medical History Encounter for education Anemia History of stress test Iron deficiency anemia due to chronic blood loss Malignant cachexia Metastasis to liver 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 Regional lymph node metastasis present Esophageal cancer Pancreatic cancer CAD (coronary artery disease) Cough with hemoptysis Wears glasses Prostate disease High cholesterol Former smoker History of echocardiogram Cardiology follow-up encounter Screen for colon cancer Hepatic cyst Carotid artery stenosis Dyspnea Anemia, mild Atonic bladder BPH (benign prostatic hyperplasia) Hyperlipidemia Hemoptysis Home Medications ?Medication ?Instructions ?Recorded ?Last Taken ?Type atorvastatin 40 mg tablet 40 mg PO DAILY 01/12/2110/18 History latanoprost 0.005 % eye drops 1 drp ophthalmic (eye) Q DAY 07/14/24 07/29/24 History lidocaine-prilocaine 2.5 %-2.5 % 1 applic topical ONCE PRN port 07/27/24 Unknown Rx topical cream access 30 days #30 grams ondansetron 8 mg disintegrating 8 mg PO Q8H PRN nausea and 07/27/24 Unknown Rx tablet vomiting #30 tabs prochlorperazine maleate 10 mg 10 mg PO Q6H PRN nausea and 07/27/24 Unknown Rx tablet vomiting #30 tabs Allergy/AdvReac Type Severity Reaction Status Date / Time No Known Allergies Allergy Verified 07/30/24 11:03 Family History Father Heart disease CHF (congestive heart failure) Myocardial infarction 60 Mother Heart disease CHF (congestive heart failure) Brother CAD (coronary artery disease), Onset Age: 40 stent placement Bladder cancer Brother CVA (cerebral vascular accident) Surgical History History of foot surgery History of colonoscopy (~2007) Social History Smoking Status: Former smoker alcohol intake: current alcohol intake frequency: a few times a week Alcohol type: beer substance use type: does not use caffeine: Yes Type: coffee Number of servings: 1 what type of physical activity do you participate in: walking frequency: daily duration: 30-45 minutes/day Review of Systems (Anesthesia) ROS Narrative System reviewed and no additional complaints, except as documented. 07/30/24 1152 <Electronically signed by Sandoval blanco MD> Date _ Sandoval Kuo MD Cosigner Signature: Date CC: ~ Signed [facility] Work Phone: 1(821) 173-641003-06-2025 History and physical note Author Andrade Epstein [facility] Note Date/Time July 30, 2024 11:[address] [facility] Medical Records Department [address] [place] [address] History & Physical Exam 07/30/24 1130 MR#: [id number] Acct: [id number] Name: AMADO GALLARDO Rep #:[id number] : 1950 73 From: Andrade Epstein MD PCP: [facility] Hospital Status:[facility] Location: [facility] AC11-1 HPI - General General Date of Admission: 07/30/24 Date of Service: 07/30/24 Chief Complaint: Mediport placement HPI Narrative AMADO GALLARDO, is a 73 M who presents to have a left-sided Mediport placed. He wasrecently diagnosed with metastatic cancer. His oncology team is recommending chemotherapy which is to begin next week. He was seen in the office. 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 Regional lymph node metastasis present Esophageal cancer Pancreatic cancer CAD (coronary artery disease) Cough with hemoptysis Wears glasses Prostate disease High cholesterol Former smoker History of echocardiogram Cardiology follow-up encounter Screen for colon cancer Hepatic cyst Carotid artery stenosis Dyspnea Anemia, mild Atonic bladder BPH (benign prostatic hyperplasia) Hyperlipidemia Hemoptysis Home Medications ?Medication ?Instructions ?Recorded ?Last Taken ?Type atorvastatin 40 mg tablet 40 mg PO DAILY 01/12/2110/18 History latanoprost 0.005 % eye drops 1 drp ophthalmic (eye) Q DAY 07/14/24 07/29/24 History lidocaine-prilocaine 2.5 %-2.5 % 1 applic topical ONCE PRN port 07/27/24 Unknown Rx topical cream access 30 days #30 grams ondansetron 8 mg disintegrating 8 mg PO Q8H PRN nausea and 07/27/24 Unknown Rx tablet vomiting #30 tabs prochlorperazine maleate 10 mg 10 mg PO Q6H PRN nausea and 07/27/24 Unknown Rx tablet vomiting #30 tabs Allergy/AdvReac Type Severity Reaction Status Date / Time No Known Allergies Allergy Verified 07/30/24 11:03 Family History Father Heart disease CHF (congestive heart failure) Myocardial infarction 60 Mother Heart disease CHF (congestive heart failure) Brother CAD (coronary artery disease), Onset Age: 40 stent placement Bladder cancer Brother CVA (cerebral vascular accident) Surgical History History of foot surgery History of colonoscopy (~2007) Social History Smoking Status: Former smoker alcohol intake: current alcohol intake frequency: a few times a week Alcohol type: beer substance use type: does not use caffeine: Yes Type: coffee Number of servings: 1 what type of physical activity do you participate in: walking frequency: daily duration: 30-45 minutes/day Vital Signs Vital Signs Vital Signs: 07/30/24 11:05 07/30/24 11:05 Temperature 97.3 F L Temperature Source Temporal Pulse Rate 76 Respiratory Rate 16 Respiratory Pattern Normal Blood Pressure 119/63 Blood Pressure Mean 81 Blood Pressure Source Monitor Blood Pressure Position Semi-Fowlers Blood Pressure Location Right Arm Pulse Ox 98 Oxygen Delivery Method Room Air Weight Weight: 125 lb 10.616 oz Body Mass Index (BMI) 18.0 Physical Exam Const alert, oriented x3 and no apparent distress Assessment & Plan Assessment/Plan (1) Metastasis to liver: PLAN: Plan The patient is a 73-year-old male in need of a Mediport placement. We discussedthe details of the planned procedure and he wishes to proceed. Surgery will again shortly Charges/Coding Visit Charges Inpatient E&M: 40490 Init Hosp L1 07/30/24 1132 <Electronically signed by Andrade Epstein MD> Cosigner Signature (if applicable): CC: Dr. Andrade Epstein MD; [facility]~ Signed [facility] Work Phone: 1(640) 154-429803-06-2025 Radiology Diagnostic study note [facility] Imaging Services [address] [place] [id number] CXR for Line Placement MR#: [id number] Acct: [id number] Name: AMADO GALLARDO Rep #: [id number] : 1950 M 73 From: Lamont Gómez MD PCP: [facility] Status: [facility] Study:CXR for Line Placement Date of Exam: 07/30/24 Exam# [id number] Ordering Dr: St david Epstein MD PROCEDURE: CXR FOR LINE PLACEMENT REASON FOR EXAM: Portable chest radiograph was obtained. TECHNIQUE: Frontal view of the chest was obtained. COMPARISON: None. FINDINGS: A left-sided port a catheter has been placed. The tip is in the proximal portion of the superior vena cava. There is no evidence of pneumothorax. Elevation of the right hemidiaphragm. RAD/CXR for Line Placement IMPRESSION: The tip of the left-sided port a catheter is in the proximal portion of the superior vena cava. Reading Location: [id number] CC: Dr. Andrade Epstein MD; [facility] ~ Experimental Mechanic Electrical: Signed [facility]03-06-2025 Procedure note [facility] Medical Records Department [address] [place] [address] Operative Report 07/30/24 1255 MR#: [id number] Acct: [id number] Name: AMADO GALLARDO Rep #:[id number] : 1950 73 From: Andrade Epstein MD PCP: [facility] Status:[facility] Location: [place] [address] Problems Associated Problem List Diagnoses (1) Metastasis to liver: Procedures Cardiovascular CF Procedures [id number]: [id number] Insert tunneled cv cath Operative Report (Standard) Operative Information Date of Procedure: 07/30/24 Pre-Operative Diagnosis: Metastatic cancer Post-Operative Diagnosis: Same Surgery/Procedure Performed: Left subclavian Mediport placement with C arm rf microwave engineer: No Type of Anesthesia: Local and MAC RN Documented Start/Stop Times: Operation Date: 07/30/24 12:30 Case Time Into Pre-Op 07/30/24 10:41 Out of Pre-Op 07/30/24 11:55 Anesthesia Start 07/30/24 11:58 Into Room 07/30/24 11:58 Procedure Start 07/30/24 12:20 Procedure End 07/30/24 12:48 Anesthesia End 07/30/24 12:49 Out of Room 07/30/24 12:49 Into Recovery 07/30/24 12:51 Procedure Start Time: 12:20 Procedure Stop Time: 12:48 Select all DRAINS/GRAFTS/IMPLANTS that apply: Implanted device Implanted device details: 8 [place] PowerPort Special Medications: Preoperative Ancef Estimated Blood Loss: Minimal Specimen collected: No Description of surgery: The patient is a 73-year-old male recently seen to the office in need of a Mediport placement surgery. He was recently discovered with widely metastatic carcinoma. His treating oncologist are recommending chemotherapy. As a result Mediport placement was discussed. We discussed the details of the planned procedure as well as the risks benefits and alternatives. He wishes to proceed. He was broughtto the operating today following informed consent. Preoperativeantibiotics were given and a timeoutwas performed. He was placed supine on theoperative table with arms comfortably at his sides. MAC anesthesia was induced. Once adequately sedated a small axillary roll consisting of a rolled up towelwere placed between the shoulder blades to improve access to the vasculature. The chest and neck regions were then prepped and draped in the usual manner. Local anesthetic was injected into the left periclavicular region. Using the supplied needle and syringe, the left subclavian vein was accessed on the first pass. The blood return was a dark red, nonpulsatile, venous appearing blood return. Thesyringe was removed and the supplied guidewire was threaded down the aperture and the needle. The guidewire was then attached to the drapes using a curved hemostat. C-arm was brought into confirm good positioning of thewire. Next a subcutaneous pocket was created in the left upper chest. This wasperformed by injecting local anesthetic and then making about a 3 cm incision using a #15 blade. Bovieelectrocautery was then used to dissect down through subtendinous tissues down to the level of the pectoralis fascia. At this level asubcutaneous pocket was created. A small incision was made at the entry point of the guidewire. The supplied tubing was connected to the tunneler and this was tunneled into the larger incision and up and out through the smaller incision. This was trimmed to about 19cm. The tubing was then attached to thehub. The hub was then affixed to the chest wall using Prolene suture x 2. Nextthe dilator and sheath were then threaded over the guidewire and advanced. Position was confirmed with C arm. The sheath was left in place as the guidewire and dilator were then removed. The free end of the tubing was then threaded down the sheath. The sheath was then extracted. The port was tested using injectable saline. It alex and flushed nicely with good blood return. C arm was brought into confirm good positioning of the port. Heparin flush was then injected into the port. The wound was then closed using 3-0 Vicryl and 4-0Vicryl. Skin glue was applied as dressing along with sterile 2 x 2 and a large OpSite. Patient was awakened from anesthesia and taken to recovery ingood condition. Surgical Findings: See description of surgery Complications Complications: No Admit VTE Documentation VTE Present on Admission: No VTE Mechan Device Prophylaxis: SCD's VTE Pharm Prophylaxis ordered?: No Reason prophylaxis not ordered: Treatment Not Indicated 07/30/24 1302 Cosigner Signature (if applicable): CC: Dr. Andrade Epstein MD; [facility]~ Signed [facility]03-06-2025 Consult note [facility] Medical Records Department [address] [facility] [place] [address] Anesthesia Postop Eval I 07/30/241253 MR#: [id number] Acct: [id number] Name: AMADO GALLARDO Rep #:[id number] : 1950 73 From: Ramon Juarez CRNA PCP: [facility] Status:REG SDC Y Race: C Location: [place] [address] Anesthesia: Postop Eval I Current Vital Signs Temperature: 97.5 F Pulse Rate: 76 Blood Pressure: 109/59 Respiratory Rate: 20 Pulse Ox: 100 Oxygen Delivery Method: Room Air Assessment Airway patent: Yes Spontaneous unlabored respirations: Yes Mental status: Awake and Calm nausea: No Vomiting: No Anesthesia Complication: No Fluid Hydration Crystalloid volume administer (ml): 250 Total IV fluid infused: 250 Progress Note Anesthesia document: Postop Eval 1 completed: Yes 07/30/24 1255 y SECRETARY OFFICE CLERK> Date _ Ramon Juarez CRNA Cosigner Signature: Date CC: ~ Signed [facility]03-06-2025 Discharge summary [facility] Medical Records Department [address] [place] [address] Instructions for Home/Discharge Instructions 07/30/24 1251 MR#: [id number] Acct: [id number] Name: AMADO GALLARDO Rep #:[id number] : 1950 73 From: Andrade Epstein MD PCP: [facility] Status:REG SDC Discharge Instructions Diet Discharge Diet: Light diet - advance as tolerated Activity Discharge Activity: Return to Normal Activity and May Shower May shower in (days): 1 Ice area for (Minutes): 30 Dressing / Incision Call your doctor if your incision/area has: Continuous Slow Oozing, Sudden Increased Bleeding, Increased Pain/ Swelling, Increased Redness, Foul Smelling Discharge and Swelling at the incision site Call your doctor if you observe: Fever of 101 or Higher Remove Dressing in: 3 days Cleanse incision/area with: Soap & Water Follow Up Care Test Results: Test results from this visit will be discussed in further detail at your follow- up appointment, if applicable. Discharge Plan Admission Primary Reason for Your Visit: Port placement Attending Provider: Andrade Epstein Primary Care Provider: [place], [place] Instructions Print Language: Togolese Discharge Orders/Prescriptions Prescriptions: New oxycodone-acetaminophen [Percocet] 5-325 mg tablet 1 tab PO Q8H PRN (Reason: pain) 3 Days Qty: 5 0RF Continued atorvastatin 40 mg tablet 40 mg PO DAILY latanoprost 0.005 % drops 1 drp ophthalmic (eye) QDAY prochlorperazine maleate 10 mg tablet 10 mg PO Q6H PRN (Reason: nausea and vomiting) Qty: 30 2RF Patient Comments: hasn't taken yet ondansetron 8 mg tablet,disintegrating 8 mg PO Q8H PRN (Reason: nausea and vomiting) Qty: 30 2RF Patient Comments: hasn't taken yet lidocaine-prilocaine 2.5-2.5 % cream 1 applic topical ONCE PRN (Reason: port access) 30 Days Qty: 30 2RF Patient Comments: hasn't taken yet Referrals / Follow Up: [facility] [Primary Care Provider] - Disposition Disposition (needs filled in before D/C Order can be placed): Home, Self Care 07/30/24 1254Andrade Epstein MD CC: [facility] ~ Signed [facility]03-06-2025 Consult note [facility] Medical Records Department [address] [place] [address] Pre-Anesthesia Evaluation 07/30/24 1145 MR#: [id number] Acct: [id number] Name: AMADO GALLARDO Rep #:[id number] : 1950 73 From: Sandoval Kuo MD PCP: [facility] Status:REG SDC Y Race: C Location: [place] [address] ASA Classification* ASA Classification ASA Classification: 3 Assessment & Plan Anesthesia* Anesthesia Assessment Anesthesia Assessment: Discussed sedation and/or anesthesia options, risks, benefits, and alternatives with patient/parents/legal guardian/POA. Questions invited. The patient/parents/legal guardian/POA seems to understand and agrees to proceedwith anesthesia plan. Reviewed the physical assessment, medical history, allergy history and patient home medications list prior to surgery/procedure/anesthetic and documented any changes. Performed airway and anesthesia risk assessments. Anesthesia Type Anesthesia Type: MAC History Source History Obtained from:: Patient and Chart Anesthesia Focused Assessment* Temperature: 97.3 F Pulse Rate: 76 Blood Pressure: 119/63 Respiratory Rate: 16 Pulse Ox: 98 Oxygen Delivery Method: Room Air Airway Assessment Mouth opens: >3 cm Mallampati Score: I Teeth Condition: Missing (Patient has had a couple pulled molars.) Neck Range of motion (ROM): Full ROM Focused Labs Anesthesia Preop lab: CBC WBC 12.8 K/mm3 (4.4-11.0) H 07/20/24 10:20 5 RBC 2.61 M/mm3 (4.6-6.2) L 07/20/24 10:20 07/20/24 Hgb 8.1 g/dL (13.0-16.5) L 07/20/24 10:20 07/20/24 Hct 26.0 % (40-54) L 07/20/24 10:20 07/20/24 Plt Count 619 K/mm3 (150-450) H 07/20/24 10:20 07/20/24 CHEMISTRY Potassium 3.8 mmol/L (3.5-5.1) 07/20/24 10:20 07/20/24 Sodium 138 mmol/L (136-145) 07/20/24 10:20 07/20/24 BUN 17 mg/dL (7-18) 07/20/24 10:20 07/20/24 Creatinine 0.79 mg/dL (0.70-1.30) 07/20/24 10:20 07/20/24 Glucose 113 mg/dL (74-106) H 07/20/24 10:20 07/20/24 COAG PT 12.9 SECONDS (11.7-14.9) 03/11/23 04:48 Pre-Assessment Diagnosis/Proposed Procedure Planned Operative Procedure(s): INSERTION VASCULAR PORT Anesthesia History Anesthesia History - behavioral health assistant: Anesthesia History - behavioral health assistant Hx Hospitalization No 07/28/24 08:43 Any Problems With Anesthesia No 07/28/24 08:43 Cholinesterase deficiency No 07/28/24 08:43 You/Your Family Experience No 07/28/24 08:43 fever (hyperthermia) with Relationship Recent Exposure to Contagious No 07/30/24 11:05 Disease Does patient have nerve No 07/28/24 08:43 stimulator Patient instructed to have device shut off --Does patient have Pacemaker No 07/30/24 11:05 or ICD? When Was Last Pacemaker Check QUESTION #4 FULL TEXT: You/Your Family Experience fever (hyperthermia) with Anesthesia Last Oral Intake Last Oral intake: Last Oral Intake NPO since 21:00 07/30/24 11:05 Meds taken in AM with sips of No 07/30/24 11:05 water? Meds patient instructed to take am of surgery PONV PONV - behavioral health assistant: PONV - behavioral health assistant Female No 07/28/24 08:43 HX of Motion Sickness No 07/28/24 08:43 HX of N/V After Surgery No 07/28/24 08:43 Non-Smoker Yes 07/28/24 08:43 Duration of Surgery greater No 07/28/24 08:43 than 60 minutes Number of Risk Factors 1 07/28/24 08:43 PONV Score Low Risk 07/28/24 08:43 Height & Weight Height & Weight: Anesthesia: Height & Weight Height 5 ft 10 in 07/30/24 11:05 Weight: 57 kg 07/30/24 11:05 Body Mass Index (BMI) 18.0 07/30/24 11:05 Respiratory Assessment Respiratory Assessment - behavioral health assistant: Respiratory Tract Infection Hx - behavioral health assistant Hx Respiratory Tract Infection No 07/28/24 08:43 STOP Sleep Apnea STOP Sleep Apnea - behavioral health assistant: STOP Sleep Apnea - behavioral health assistant Hx Hypertension No 07/28/24 08:43 Hx Sleep Apnea No 07/28/24 08:43 CPAP No 01/31/21 09:30 BIPAP Do you snore loudly (louder No 07/28/24 08:43 than talking or can be heard Do you often feel tired/ No 07/28/24 08:43 fatigued/ sleepy during daytime? Has anyone observed you stop No 07/28/24 08:43 breathing during sleep? STOP Results Negative 07/28/24 08:43 QUESTION #5 FULL TEXT : Do you snore loudly (louder than talking or can be heard through closeddoors)? 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 Specify any problems Hx of Preganancy in last 3 N/A 07/28/24 08:43 Months Nurse Filling Out Transfusion [id number] 07/28/24 08:43 & Questions: Date: 07/28/24 07/28/24 08:43 Time: 08:46 07/28/24 08:43 Patient unable to answer at this time (ie. confused, unrespo /Reproduction History /Reproductive History - behavioral health assistant: /Reproductive Hx- behavioral health assistant Hx Now Gestational Age (in weeks): EDC: Hx Hx Para Hx Section SAB Active Medications Active Medications: Current Medications Generic Name Dose Route Start Last Admin Trade Name Freq PRN Reason Stop Dose Admin Cefazolin Sodium 2 gm/ N/A 20 mls @ 400 mls/hr 07/30/24 12:30 IV 07/30/24 12:32 PREOP ONE PFSH Medical History Encounter for education Anemia History of stress test Iron deficiency anemia due to chronic blood loss Malignant cachexia Metastasis to liver 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 Regional lymph node metastasis present Esophageal cancer Pancreatic cancer CAD (coronary artery disease) Cough with hemoptysis Wears glasses Prostate disease High cholesterol Former smoker History of echocardiogram Cardiology follow-up encounter Screen for colon cancer Hepatic cyst Carotid artery stenosis Dyspnea Anemia, mild Atonic bladder BPH (benign prostatic hyperplasia) Hyperlipidemia Hemoptysis Home Medications ?Medication ?Instructions ?Recorded ?Last Taken ?Type atorvastatin 40 mg tablet 40 mg PO DAILY 01/12/2110/18 History latanoprost 0.005 % eye drops 1 drp ophthalmic (eye) Q DAY 07/14/24 07/29/24 History lidocaine-prilocaine 2.5 %-2.5 % 1 applic topical ONCE PRN port 07/27/24 Unknown Rx topical cream access 30 days #30 grams ondansetron 8 mg disintegrating 8 mg PO Q8H PRN nausea and 07/27/24 Unknown Rx tablet vomiting #30 tabs prochlorperazine maleate 10 mg 10 mg PO Q6H PRN nausea and 07/27/24 Unknown Rx tablet vomiting #30 tabs Allergy/AdvReac Type Severity Reaction Status Date / Time No Known Allergies Allergy Verified 07/30/24 11:03 Family History Father Heart disease CHF (congestive heart failure) Myocardial infarction 60 Mother Heart disease CHF (congestive heart failure) Brother CAD (coronary artery disease), Onset Age: 40 stent placement Bladder cancer Brother CVA (cerebral vascular accident) Surgical History History of foot surgery History of colonoscopy (~2007) Social History Smoking Status: Former smoker alcohol intake: current alcohol intake frequency: a few times a week Alcohol type: beer substance use type: does not use caffeine: Yes Type: coffee Number of servings: 1 what type of physical activity do you participate in: walking frequency: daily duration: 30-45 minutes/day Review of Systems (Anesthesia) ROS Narrative System reviewed and no additional complaints, except as documented. 07/30/24 1152 francis AVINA> Date _ Sandoval Kuo MD Cosigner Signature: Date CC: ~ Signed [facility]03-06-2025 History and physical note [facility] Medical Records Department [address] [place] [id number] History & Physical Exam 07/30/24 1130 MR#: [id number] Acct: [id number] Name: AMADO GALLARDO Rep #:[id number] : 1950 73 From: Andrade Epstein MD PCP: [facility] Status:[facility] Location: [place] [address] HPI - General General Date of Admission: 07/30/24 Date of Service: 07/30/24 Chief Complaint: Mediport placement HPI Narrative AMADO GALLARDO, is a 73 M who presents to have a left-sided Mediport placed. He wasrecently diagnosed with metastatic cancer. His oncology team is recommending chemotherapy which is to begin next week. He was seen in the office. 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 Regional lymph node metastasis present Esophageal cancer Pancreatic cancer CAD (coronary artery disease) Cough with hemoptysis Wears glasses Prostate disease High cholesterol Former smoker History of echocardiogram Cardiology follow-up encounter Screen for colon cancer Hepatic cyst Carotid artery stenosis Dyspnea Anemia, mild Atonic bladder BPH (benign prostatic hyperplasia) Hyperlipidemia Hemoptysis Home Medications ?Medication ?Instructions ?Recorded ?Last Taken ?Type atorvastatin 40 mg tablet 40 mg PO DAILY 01/12/21/10/18 History latanoprost 0.005 % eye drops 1 drp ophthalmic (eye) Q DAY 07/14/24 07/29/24 History lidocaine-prilocaine 2.5 %-2.5 % 1 applic topical ONCE PRN port 07/27/24 Unknown Rx topical cream access 30 days #30 grams ondansetron 8 mg disintegrating 8 mg PO Q8H PRN nausea and 07/27/24 Unknown Rx tablet vomiting #30 tabs prochlorperazine maleate 10 mg 10 mg PO Q6H PRN nausea and 07/27/24 Unknown Rx tablet vomiting #30 tabs Allergy/AdvReac Type Severity Reaction Status Date / Time No Known Allergies Allergy Verified 07/30/24 11:03 Family History Father Heart disease CHF (congestive heart failure) Myocardial infarction 60 Mother Heart disease CHF (congestive heart failure) Brother CAD (coronary artery disease), Onset Age: 40 stent placement Bladder cancer Brother CVA (cerebral vascular accident) Surgical History History of foot surgery History of colonoscopy (~2007) Social History Smoking Status: Former smoker alcohol intake: current alcohol intake frequency: a few times a week Alcohol type: beer substance use type: does not use caffeine: Yes Type: coffee Number of servings: 1 what type of physical activity do you participate in: walking frequency: daily duration: 30-45 minutes/day Vital Signs Vital Signs Vital Signs: 07/30/24 11:05 07/30/24 11:05 Temperature 97.3 F L Temperature Source Temporal Pulse Rate 76 Respiratory Rate 16 Respiratory Pattern Normal Blood Pressure 119/63 Blood Pressure Mean 81 Blood Pressure Source Monitor Blood Pressure Position Semi-Fowlers Blood Pressure Location Right Arm Pulse Ox 98 Oxygen Delivery Method Room Air Weight Weight: 125 lb 10.616 oz Body Mass Index (BMI) 18.0 Physical Exam Const alert, oriented x3 and no apparent distress Assessment & Plan Assessment/Plan (1) Metastasis to liver: PLAN: Plan The patient is a 73-year-old male in need of a Mediport placement. We discussedthe details of the planned procedure and he wishes to proceed. Surgery will again shortly Charges/Coding Visit Charges Inpatient E&M: 31480 Init Hosp L1 07/30/24 1132 Cosigner Signature (if applicable): CC: Dr. Andrade Epstein MD; [facility]~ Signed 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 July 27, 2024 2:45pm Encounter for education resolved 2024 2:45pm Malignant cachexia resolved July 27, 2024 2:45pm Malignant cachexia resolved July 28, 2024 10:02am Metastasis to liver chronic July 30, 2024 10:29am 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 August 04, 2024 8:00am Esophageal cancer chronic July 252024 8:00am Metastasis to liver chronic August 04, 2024 8:00am Pancreatic cancer chronic July 252024 8:00am 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 August 04, 2024 8:00am Malignant cachexia resolved August 04, 2024 8:00am 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 August 11, 2024 2:01pm Esophageal cancer chronic July 252024 2:01pm Metastasis to liver chronic August 11, 2024 2:01pm Pancreatic cancer chronic July 252024 2:01pm 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 August 11, 2024 2:01pm Malignant cachexia resolved August 11, 2024 2:01pm Diarrhea acute August 18 8:08am 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 August 18, 2024 8:08am Esophageal cancer chronic July 262024 8:08am Metastasis to liver chronic August 18, 2024 8:08am Pancreatic cancer chronic July 262024 8:08am 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 August 18, 2024 8:08am Malignant cachexia resolved August 18, 2024 8:08am 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 August 24, 2024 1:30pm Esophageal cancer chronic July 272024 1:30pm Metastasis to liver chronic August 24, 2024 1:30pm Pancreatic cancer chronic July 272024 1:30pm 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 August 24, 2024 1:30pm Malignant cachexia resolved August 24, 2024 1:30pm Encounter for chemotherapy management acute September 01, 2024 7:43am 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 September 01, 2024 7:43am Esophageal cancer chronic September 012024 7:43am Metastasis to liver chronic September 01, 2024 7:43am Pancreatic cancer chronic September 012024 7:43am 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 September 01, 2024 7:43am Malignant cachexia resolved September 01, 2024 7:43am Encounter for antineoplastic immunotherapy acute September 15, 2024 8:07am Encounter for chemotherapy management acute September 15, 2024 8:07am 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 September 15, 2024 8:07am Esophageal cancer chronic August 262024 8:07am Metastasis to liver chronic September 15, 2024 8:07am Pancreatic cancer chronic August 262024 8:07am 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 September 15, 2024 8:07am Malignant cachexia resolved September 15, 2024 8:07am 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 September 29, 2024 8: 36am Esophageal cancer chronic September 8:36am Metastasis to liver chronic September 292024 8:36am Pancreatic cancer chronic September 8:36am 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 September 29, 2024 8: 36am Malignant cachexia resolved September 8:36am 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 October 13, 2024 8 :36am Esophageal cancer chronic September 8:36am Metastasis to liver chronic September 252024 8:36am Pancreatic cancer chronic September 8:36am 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 October 13, 2024 8 :36am 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 October 27, 2024 8 :33am Esophageal cancer chronic October 8:33am Metastasis to liver chronic October 27, 2024 8:33am Pancreatic cancer chronic October 8:33am 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 October 27, 2024 8 :33am Encounter for antineoplastic immunotherapy acute November 11, 2024 8:30am Encounter for chemotherapy management acute November 11, 2024 8:30am 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 November 11, 2024 8:30am Esophageal cancer chronic November 112024 8:30am Metastasis to liver chronic November 11, 2024 8:30am Pancreatic cancer chronic November 112024 8:30am 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 Met with doctor at [place] and was recommended he start chemotherapy. Has a follow up appointment on to discuss chemotherapy further. He would like to proceed with cryotherapy as a means of symptom management for severe dysphagia. Explained to patient that ideally Dr. Denise would like to perform ablation 1 week prior to start of chemotherapy and again in two weeks. Will reach out to Dr. Denise and his team about scheduling the patient. Will follow up again after appointment on Saturday. Aracely Lovett APRN.JANNETH [facility] Work Phone: 1(836) 107-218502-27-2025 Miscellaneous Notes* Telephone Encounter - Aracely Lovett APRN.CNP - 07/23/2024 3:15 PM EST Spoke with patient. Met with doctor at [place] and was recommended he start chemotherapy. Has a follow up appointment on to discuss chemotherapy further. He would like to proceed with cryotherapy as a means of symptom management for severe dysphagia. Explained to patient that ideally Dr. Denise would like to perform ablation 1 week prior to start of chemotherapy and again in two weeks. Will reach out to Dr. Denise and his team about scheduling the patient. Will follow up again after appointment on Saturday. Aracley Lovett APRN.CNP documented in this encounterWright-[facility]02-26-2025 Telephone encounter Note * Telephone Encounter - Aracely Lovett APRN.CNP - 07/22/2024 4:28 PM EST Attempted to return patient's phone call at number provided. Also attempted phone number given at time of appointment. No answer on either number. Left voicemail and callback number. Will try again tomorrow morning. Aracely Lovett APRN.CNP [facility] Work Phone: 1(928) 222-607002-26-2025 Miscellaneous Notes* Telephone Encounter - Aracely Lovett APRN.CNP - 07/22/2024 4:28 PM EST Attempted to return patient's phone call at number provided. Also attempted phone number given at time of appointment. No answer on either number. Left voicemail and callback number. Will try again tomorrow morning. Aracely Lovett APRN.CNP * Telephone Encounter - Lois Schreiber - 07/22/2024 3:12 PM EST Patient called the office and would like a call back to go over care plan. Please review and advise. Lois Russo documented in this encounterWright-Pat[facility]02-26-2025 Telephone encounter Note * Telephone Encounter - Russo Donna Lois - 07/22/2024 3:12 PM EST Patient called the office and would like a call back to go over care plan. Please review and advise. Lois Russo [facility]02-24-2025 Evaluation note* Diagnosis Onset Date Resolution Status Admit Date 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 acute July 20, 025 9:05am Esophageal cancer acute Februar 2024 9:05am Malignant cachexia acute Februa ry 2024 9:05am Metastasis to liver acute Febru 2024 9:05am Pancreatic cancer acute Februar 2024 9:05am Regional lymph node metastas is present acute July 20, 025 9:05am Iron deficiency anemia due t o chronic blood loss chronic June 9:05am 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 acute July 27, 2024 2:45pm Encounter for education acute M 2024 2:45pm Esophageal cancer acute July 272024 2:45pm Malignant cachexia acute July 27, 2024 2:45pm Metastasis to liver acute July 27, 2024 2:45pm Pancreatic cancer acute July 272024 2:45pm Regional lymph node metastas is present acute July 27, 2024 2:45pm Malignant cachexia acute July 28, 2024 10:02am Metastasis to liver acute July 30, 2024 10:29am [facility] Work Phone: 1(191) 578-310302-24-2025 Evaluation note* Diagnosis Onset Date Resolution Status Admit Date 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 acute July 20, 025 9:05am Esophageal cancer acute Februar 2024 9:05am Metastasis to liver acute Febru 2024 9:05am Pancreatic cancer acute Februar 2024 9:05am Regional lymph node metastas is present acute July 20, 025 9:05am Iron deficiency anemia due t o chronic blood loss chronic June 9:05am Malignant cachexia resolved Februa 2024 9:05am 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 acute July 27, 2024 2:45pm Encounter for education acute 2024 2:45pm Esophageal cancer acute July 272024 2:45pm Metastasis to liver acute July 27, 2024 2:45pm Pancreatic cancer acute July 272024 2:45pm Regional lymph node metastas is present acute July 27, 2024 2:45pm Malignant cachexia resolved July 27, 2024 2:45pm Malignant cachexia resolved July 28, 2024 10:02am Metastasis to liver acute July 30, 2024 10:29am 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 acute August 04, 2024 8:00am Esophageal cancer acute July 252024 8:00am Metastasis to liver acute August 04, 2024 8:00am Pancreatic cancer acute July 252024 8:00am Regional lymph node metastas is present acute August 04, 2024 8:00am Malignant cachexia resolved August 04, 2024 8:00am 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 acute August 11, 2024 2:01pm Esophageal cancer acute July 252024 2:01pm Metastasis to liver acute August 11, 2024 2:01pm Pancreatic cancer acute July 252024 2:01pm Regional lymph node metastas is present acute August 11, 2024 2:01pm Malignant cachexia resolved August 11, 2024 2:01pm 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 acute August 18, 2024 8:08am Diarrhea acute August 18 8:08am Esophageal cancer acute July 262024 8:08am Metastasis to liver acute August 18, 2024 8:08am Pancreatic cancer acute July 262024 8:08am Regional lymph node metastas is present acute August 18, 2024 8:08am Malignant cachexia resolved August 18, 2024 8:08am 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 acute August 24, 2024 1:30pm Esophageal cancer acute July 272024 1:30pm Metastasis to liver acute August 24, 2024 1:30pm Pancreatic cancer acute July 272024 1:30pm Regional lymph node metastas is present acute August 24, 2024 1:30pm Malignant cachexia resolved August 24, 2024 1:30pm 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 acute September 01, 2024 7:43am Encounter for chemotherapy management acute September 01, 2024 7:43am Esophageal cancer acute September 012024 7:43am Metastasis to liver acute September 01, 2024 7:43am Pancreatic cancer acute September 012024 7:43am Regional lymph node metastas is present acute September 01, 2024 7:43am Malignant cachexia resolved September 01, 2024 7:43am 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 acute September 15, 2024 8:07am Encounter for antineoplastic immunotherapy acute September 15, 2024 8:07am Encounter for chemotherapy management acute September 15, 2024 8:07am Esophageal cancer acute August 262024 8:07am Metastasis to liver acute September 15, 2024 8:07am Pancreatic cancer acute August 262024 8:07am Regional lymph node metastas is present acute September 15, 2024 8:07am Malignant cachexia resolved September 15, 2024 8:07am 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 acute September 29, 2024 8: 36am Esophageal cancer acute September 8:36am Metastasis to liver acute September 292024 8:36am Pancreatic cancer acute September 8:36am Regional lymph node metastas is present acute September 29, 2024 8: 36am Malignant cachexia resolved September h2024 8:36am 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 acute October 13, 2024 8 :36am Esophageal cancer acute September h2024 8:36am Metastasis to liver acute September 252024 8:36am Pancreatic cancer acute September h2024 8:36am Regional lymph node metastas is present acute October 13, 2024 8 :36am [facility] Work Phone: 1(464) 479-280102-24-2025 Evaluation note* Diagnosis Onset Date Resolution Status Admit Date 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 July 20, 025 9:05am Esophageal cancer chronic Februar y 2024 9:05am Iron deficiency anemia due t o chronic blood loss chronic June 9:05am Metastasis to liver chronic Febru brittney 2024 9:05am Pancreatic cancer chronic Februar y 2024 9:05am 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 July 20 025 9:05am Malignant cachexia resolved Februa ry 2024 9:05am 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 July 27, 2024 2:45pm Esophageal cancer chronic July 272024 2:45pm Metastasis to liver chronic July 27, 2024 2:45pm Pancreatic cancer chronic July 272024 2:45pm 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 July 27, 2024 2:45pm Encounter for education resolved 2024 2:45pm Malignant cachexia resolved July 27, 2024 2:45pm Malignant cachexia resolved July 28, 2024 10:02am Metastasis to liver chronic July 30, 2024 10:29am 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 August 04, 2024 8:00am Esophageal cancer chronic July 252024 8:00am Metastasis to liver chronic August 04, 2024 8:00am Pancreatic cancer chronic July 252024 8:00am 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 August 04, 2024 8:00am Malignant cachexia resolved August 04, 2024 8:00am 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 August 11, 2024 2:01pm Esophageal cancer chronic July 252024 2:01pm Metastasis to liver chronic August 11, 2024 2:01pm Pancreatic cancer chronic July 252024 2:01pm 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 August 11, 2024 2:01pm Malignant cachexia resolved August 11, 2024 2:01pm Diarrhea acute August 18 8:08am 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 August 18, 2024 8:08am Esophageal cancer chronic July 262024 8:08am Metastasis to liver chronic August 18, 2024 8:08am Pancreatic cancer chronic July 262024 8:08am 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 August 18, 2024 8:08am Malignant cachexia resolved August 18, 2024 8:08am 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 August 24, 2024 1:30pm Esophageal cancer chronic July 272024 1:30pm Metastasis to liver chronic August 24, 2024 1:30pm Pancreatic cancer chronic July 272024 1:30pm 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 August 24, 2024 1:30pm Malignant cachexia resolved August 24, 2024 1:30pm Encounter for chemotherapy management acute September 01, 2024 7:43am 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 September 01, 2024 7:43am Esophageal cancer chronic September 012024 7:43am Metastasis to liver chronic September 01, 2024 7:43am Pancreatic cancer chronic September 012024 7:43am 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 September 01, 2024 7:43am Malignant cachexia resolved September 01, 2024 7:43am Encounter for antineoplastic immunotherapy acute September 15, 2024 8:07am Encounter for chemotherapy management acute September 15, 2024 8:07am 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 September 15, 2024 8:07am Esophageal cancer chronic August 262024 8:07am Metastasis to liver chronic September 15, 2024 8:07am Pancreatic cancer chronic August 262024 8:07am 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 September 15, 2024 8:07am Malignant cachexia resolved September 15, 2024 8:07am 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 September 29, 2024 8: 36am Esophageal cancer chronic September 8:36am Metastasis to liver chronic September 292024 8:36am Pancreatic cancer chronic September 8:36am 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 September 29, 2024 8: 36am Malignant cachexia resolved September 8:36am 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 October 13, 2024 8 :36am Esophageal cancer chronic September 8:36am Metastasis to liver chronic September 252024 8:36am Pancreatic cancer chronic September 8:36am 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 October 13, 2024 8 :36am 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 October 27, 2024 8 :33am Esophageal cancer chronic October 8:33am Metastasis to liver chronic October 27, 2024 8:33am Pancreatic cancer chronic October 8:33am 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 October 27, 2024 8 :33am [facility] Work Phone: 1(348) 872-334602-24-2025 Evaluation note* Diagnosis Onset Date Resolution Status Admit Date 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 July 20, 2 025 9:05am Esophageal cancer chronic Februar 2024 9:05am Iron deficiency anemia due t o chronic blood loss chronic June 9:05am Metastasis to liver chronic Febru brittney 2024 9:05am Pancreatic cancer chronic Februar y 2024 9:05am 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 July 20, 9:05am Malignant cachexia resolved Februa ry 2024 9:05am 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 July 27, 2024 2:45pm Esophageal cancer chronic July 272024 2:45pm Metastasis to liver chronic July 27, 2024 2:45pm Pancreatic cancer chronic July 272024 2:45pm 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 July 27, 2024 2:45pm Encounter for education resolved M 2024 2:45pm Malignant cachexia resolved July 27, 2024 2:45pm Malignant cachexia resolved July 28, 2024 10:02am Metastasis to liver chronic July 30, 2024 10:29am 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 August 04, 2024 8:00am Esophageal cancer chronic July 252024 8:00am Metastasis to liver chronic August 04, 2024 8:00am Pancreatic cancer chronic July 252024 8:00am 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 August 04, 2024 8:00am Malignant cachexia resolved August 04, 2024 8:00am 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 August 11, 2024 2:01pm Esophageal cancer chronic July 252024 2:01pm Metastasis to liver chronic August 11, 2024 2:01pm Pancreatic cancer chronic July 252024 2:01pm 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 August 11, 2024 2:01pm Malignant cachexia resolved August 11, 2024 2:01pm Diarrhea acute August 18 8:08am 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 August 18, 2024 8:08am Esophageal cancer chronic July 262024 8:08am Metastasis to liver chronic August 18, 2024 8:08am Pancreatic cancer chronic July 262024 8:08am 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 August 18, 2024 8:08am Malignant cachexia resolved August 18, 2024 8:08am 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 August 24, 2024 1:30pm Esophageal cancer chronic July 272024 1:30pm Metastasis to liver chronic August 24, 2024 1:30pm Pancreatic cancer chronic July 272024 1:30pm 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 August 24, 2024 1:30pm Malignant cachexia resolved August 24, 2024 1:30pm Encounter for chemotherapy management acute September 01, 2024 7:43am 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 September 01, 2024 7:43am Esophageal cancer chronic September 012024 7:43am Metastasis to liver chronic September 01, 2024 7:43am Pancreatic cancer chronic September 012024 7:43am 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 September 01, 2024 7:43am Malignant cachexia resolved September 01, 2024 7:43am Encounter for antineoplastic immunotherapy acute September 15, 2024 8:07am Encounter for chemotherapy management acute September 15, 2024 8:07am 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 September 15, 2024 8:07am Esophageal cancer chronic August 262024 8:07am Metastasis to liver chronic September 15, 2024 8:07am Pancreatic cancer chronic August 262024 8:07am 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 September 15, 2024 8:07am Malignant cachexia resolved September 15, 2024 8:07am 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 September 29, 2024 8: 36am Esophageal cancer chronic September 8:36am Metastasis to liver chronic September 292024 8:36am Pancreatic cancer chronic September 8:36am 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 September 29, 2024 8: 36am Malignant cachexia resolved September 8:36am 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 October 13, 2024 8 :36am Esophageal cancer chronic September 8:36am Metastasis to liver chronic September 252024 8:36am Pancreatic cancer chronic September h2024 8:36am 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 October 13, 2024 8 :36am 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 October 27, 2024 8 :33am Esophageal cancer chronic October 8:33am Metastasis to liver chronic October 27, 2024 8:33am Pancreatic cancer chronic October 8:33am 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 October 27, 2024 8 :33am Encounter for antineoplastic immunotherapy acute November 11, 2024 8:30am Encounter for chemotherapy management acute November 11, 2024 8:30am 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 The patient's identity and physical location wereverified at the time of this visit. Either the patient or their legal factory representative has been informed of the risks and benefits of -- and alternatives to -- treatment through a remote evaluation andconsents to proceed with the evaluation remotely. I had a virtual visit with Mr. Gallardo today. His local doctors have given his a diagnosis of pancreatic adenocarcinoma. HISTORY: Mr. Gallardo is a 73 year old male who presents virtually today for consult for pancreatic adenocarcinoma. He has past medical history of diverticulosis, BPH, former smoker. PERTINENT WORK UP TO DATE [facility] SYMPTOMS Diagnosed a few weeks ago with pancreatic cancer Was experiencing stomach pain, had an EGD and PET scan found liver, pancreas and esophagus He has increased dysphagia to solids sand liquids Going to [facility] Saturday morning to schedule chemo and next steps Symptoms started around December 2023, feeling discomfort with swallowing, self diagnosed himself with a stomach ulcer [place] doctor [place] [facility] at end of June that ordered all testing Stays away from bread and meat, eats a lot of soup Drinks Ensure, eats a lot of ice cream No regurgitation, nausea or vomiting Has lower abdominal pain that comes and goes Bowel habits are more constipation, takes Miralax for this He has lost ~25 pounds since December, stopped weighing himself for last two weeks No history of ETOH or smoking No significant family history No history of Vazquez's esophagus, pancreatitis or pancreatic cancer PHYSICAL FINDINGS OF NOTE: Patient reported height 5' 10" and weight N/A General - Normal, healthy, cooperative, in no acute distress Able to interact verbally by video conference Psych - ORIENTATION: normal to time place, person and situation Mood/Affect: AFFECT AND MOOD: Normal Head/Neuro - Normal size and shape Facial appearance normal Pulmonary - respiratory effort normal Cardiovascular - patient describes extremities normal, warm, no cyanosis,no clubbing, and no edema Abdominal - Not performed Skin - abnormal lesions not visualized Motor - patient seen sitting with Normal appearing strength and coordination IMPRESSION AND PLAN Mr. Gallardo is a 73 year old male who presents virtually today for consult for esophageal mass. He has past medical history of diverticulosis, BPH, former smoker. Diagnosed with pancreatic and esophageal cancer with mets to liver and lungs 06/23/24. Symptoms started in December 2023 as abdominal pain and dysphagia. He complains of worsening dysphagia, eating mostly soup and ice cream. [facility] ablation therapy as a means of palliative care. Explained patient not a surgical candidate for resection of tumor. Dicussed case with Dr. Denise. Ideally would like to schedule cryotherapy 1 week prior to start of chemotherapy then again 2 weeks after initial. Patient is meeting with oncology at [place] on Thursday 07/20 and will call the office with an update. 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 I spent more than 30 minutes [id number] with the patient and over half the time was devoted to counseling and/or coordination of care. Aracely Lovett APRN.CNP documented in this [facility]25 NoteHNO ID: [id number] Author: ARACELY LOVETT APRN.CNP Service: ? Author Type: Nurse Practitioner Type: Progress Notes Filed: 07/23/2024 10:45 Note Text: NEW VIRTUAL VISIT I have communicated my name and active licensure. The patient's identity and physical location were verified at the time of this visit. Either the patient or their legal factory representative has been informed of the risks and benefits of -- and alternatives to -- treatment through a remote evaluation and consents to proceed with the evaluation remotely. I had a virtual visit with Mr. Gallardo today. His local doctors have given his a diagnosis of pancreatic adenocarcinoma. HISTORY: Mr. Gallardo is a 73 year old male who presents virtually today for consult for pancreatic adenocarcinoma. He has past medical history of diverticulosis, BPH, former smoker. PERTINENT WORK UP TO DATE [facility] scanned documents for [facility] SYMPTOMS Diagnosed a few weeks ago with pancreatic cancer Was experiencing stomach pain, had an EGD and PET scan found liver, pancreas and esophagus He has increased dysphagia to solids sand liquids Going to [facility] Saturday to schedule chemo and next steps Symptoms started around December 2023, feeling discomfort with swallowing, self diagnosed himself with a stomach ulcer [place] doctor [place] [facility] at end of June that ordered all testing Stays away from bread and meat, eats a lot of soup Drinks Ensure, eats a lot of ice cream No regurgitation, nausea or vomiting Has lower abdominal pain that comes and goes Bowel habits are more constipation, takes Miralax for this He has lost ~25 pounds since December, stopped weighing himself for last two weeks No history of ETOH or smoking No significant family history No history of Vazquez's esophagus, pancreatitis or pancreatic cancer PHYSICAL FINDINGS OF NOTE: Patient reported height 5' 10" and weight N/A General - Normal, healthy, cooperative, in no acute distress Able to interact verbally by video conference Psych - ORIENTATION: normal to time place, person and situation Mood/Affect: AFFECT AND MOOD: Normal Head/Neuro - Normal size and shape Facial appearance normal Pulmonary - respiratory effort normal Cardiovascular - patient describes extremities normal, warm, no cyanosis,no clubbing, and no edema Abdominal - Not performed Skin - abnormal lesions not visualized Motor - patient seen sitting with Normal appearing strength and coordination IMPRESSION AND PLAN Mr. Gallardo is a 73 year old male who presents virtually today for consult for esophageal mass. He has past medical history of diverticulosis, BPH, former smoker. Diagnosed with pancreatic and esophageal cancer with mets to liver and lungs 06/23/24. Symptoms started in December 2023 as abdominal pain and dysphagia. He complains of worsening dysphagia, eating mostly soup and ice cream. Referred by [facility] for possible cryo ablation therapy as a means of palliative care. Explained patient not a surgical candidate for resection of tumor. Dicussed case with Dr. Denise. Ideally would like to schedule cryotherapy 1 week prior to start of chemotherapy then again 2 weeks after initial. Patient is meeting with oncology at [place] on Thursday 07/20 and will call the office with an update. 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 I spent more than 30 minutes [id number] with the patient and over half the time was devoted to counseling and/or coordination of care. Aracely Lovett APRN.CNPNationwide Children's Hospital note Author Ramon Juarez [facility] Note Date/Time July 30, 2024 12:5 5pm [facility] Medical Records Department [address] [place] [address] Anesthesia Postop Eval I 07/30/24 1254 MR#: [id number] Acct: [id number] Name: AMADO GALLARDO Rep #:[id number] : 1950 73 From: Ramon Juarez CRNA PCP: [facility] Status:REG SDC Y Race: C Location: [place] [address] Anesthesia: Postop Eval I Current Vital Signs Temperature: 97.5 F Pulse Rate: 76 Blood Pressure: 109/59 Respiratory Rate: 20 Pulse Ox: 100 Oxygen Delivery Method: Room Air Assessment Airway patent: Yes Spontaneous unlabored respirations: Yes Mental status: Awake and Calm nausea: No Vomiting: No Anesthesia Complication: No Fluid Hydration Crystalloid volume administer (ml): 250 Total IV fluid infused: 250 Progress Note Anesthesia document: Postop Eval 1 completed: Yes 07/30/24 1255 <Electronically signed by Ramon ramsay CRNA> Date _ Ramon Juarez CRNA Cosigner Signature: Date CC: ~ Signed [facility] Work Phone: Discharge summary Author Jean Claude Howell [facility] March 11, 2023 7:18am Note Date/Time March 11, 2023 5 :51am [facility] Medical Records Department [address] [place] [address] Emergency Department Summary 03/11/23 MR#: [id number] Acct: [id number] Name: AMADO GALLARDO Rep #:[id number] : 1950 72 From: Jean Claude Howell DO [facility] Status:REG ER Location: ED HPI History of Present Illness Chief Complaint: Abd Pain Informant: patient and spouse/S.O. Narrative Narrative: Patient is a 72-year-old male with past medical history of hyperlipidemia as well as underlying lung disorder causing hemoptysis. He states that he went to bed feeling normal then awoke from sleep around 3:30-4:00 in the morning and noticed just a mild amount of midepigastric abdominal pain. He states that as time passed the pain grew more and more intense and he describes it as sharp andstabbing in nature. He denies any recent trauma or excessive activity. He states that there is no radiation of the pain and he denies any nausea or vomiting associated with this. He states he was unsure if this could potentially be cardiac event and with concern for this comes in for evaluation. [facility] Medical History Anemia, mild Atonic bladder BPH (benign prostatic hyperplasia) Cardiology follow-up encounter Carotid artery stenosis Dyspnea Former smoker Hemoptysis Hepatic cyst High cholesterol History of echocardiogram Hyperlipidemia Prostate disease Wears glasses Home Medications tamsulosin 0.4 mg capsule 0.4 mg PO QHS 12/01/19 [History Last Taken Unknown] atorvastatin 40 mg tablet 40 mg PO DAILY 01/12/21 [History Last Taken Unknown] Allergy/AdvReac Type Severity Reaction Status Date / Time No Known Allergies Allergy Verified 12/05/21 09:40 Family History Father Heart disease Mother Heart disease Brother CAD (coronary artery disease), Onset Age: 40 stent placement Surgical History History of colonoscopy (~2007) History of foot surgery Social History Smoking Status: Former smoker how long ago did patient quit smokin years ago alcohol intake: current alcohol intake frequency: a few times a week Alcohol type: beer substance use type: does not use caffeine: Yes Type: coffee Number of servings: 1 what type of physical activity do you participate in: walking frequency: daily duration: 30-45 minutes/day ROS ROS ED Constitutional Constitutional ED: Denies chills or fever(s) Eyes Eyes: Denies change in vision ENT ENT ED: Denies sore throat Cardiovascular Cardiovascular: Denies chest pain Respiratory/Chest Respiratory/Chest: Reports cough; Denies dyspnea Gastrointestinal Gastrointestinal: Reports abdominal pain; Denies diarrhea, nausea or vomiting Genitourinary Genitourinary ED: Denies dysuria Musculoskeletal Musculoskeletal: Denies back pain or myalgias Integumentary Denies rash Neurologic Neurologic: Denies headache(s) Hematologic/Lymphatic Hematologic/Lymphatic: Denies easy bleeding or easy bruising EXAM Physical Exam Const Vital Signs: 03/11/23 04:42 03/11/23 05:14 03/11/23 05:19 Temperature 97.6 F L 97.6 F L Temperature Source Oral Oral Pulse Rate 83 86 Respiratory Rate 16 20 H Blood Pressure 153/81 H 130/67 H Blood Pressure Mean 105 88 Pulse Ox 94 95 87 Oxygen Delivery Method Room Air Room Air Room Air Oxygen Flow Rate (L/min) 03/11/23 05:19 03/11/23 06:00 Temperature 98 F Temperature Source Oral Pulse Rate 77 Respiratory Rate 16 Blood Pressure 143/72 H Blood Pressure Mean 95 Pulse Ox 94 93 Oxygen Delivery Method Nasal Cannula Nasal Cannula Oxygen Flow Rate (L/min) 2 2 Positive well nourished and well developed General Appearance ED: well developed; Negative for pallor HEENT HEENT Narrative: Normocephalic atraumatic Eyes PERRL and EOMs intact bilaterally General Eye ED: Negative for scleral icterus Neck supple and no JVD Neck Narrative: No nuchal rigidity or meningeal signs noted Chest Wall palpation of chest normal Chest Narrative: No bony deformity or crepitance Resp normal respiratory effort and clear to auscultation bilaterally Cardio regular rate and regular rhythm Rate: other Other Details: Radial and carotid pulses equal and symmetric No murmurs rubs or gallops GI non-distended GI Narrative: Abdomen is soft and nondistended with normal active bowel sounds. There is justfaint pain present in the midepigastric region without voluntary guarding or rigidity. No hernia noted. No pulsatile mass or fluid wave. Auscultation: normoactive bowel sounds Palpation: soft Back/Spine no CVA tenderness Extremity normal to inspection Extremity Narrative: No asymmetric edema no pitting edema negative Homans' sign bilaterally Neuro oriented x3, CN's II-XII intact bilaterally and no sensory deficits noted Sensorium / Orientation: alert Motor Exam: strength 5/5 throughout Psych mental status grossly normal Skin no rashes or lesions noted General Skin Exam: Negative for jaundice or pallor MDM MDM MDM Narrative Medical decision making narrative: Patient presented to the ER mildly hypertensive but otherwise with stable vitals. He reported sudden onset of midepigastric pain but on palpation there is minimal reproduction of the pain. With concern that this was pain at proportionand could be related to mesenteric ischemia or potential aortic dissection I didelect to perform basic laboratory studies and a CTA of the chest abdomen pelvis. There is also concern that as the pain is in the upper abdomen/lower chest thiscould be acute coronary syndrome or even potentially biliary colic or pancreatitis. Labs revealed no clinically significant findings. Patient's troponin was normal at a value of 6 and EKG was sinus rhythm going against acutecoronary syndrome. Patient's lipase was normal and CT scan did not reveal any inflammatory changes of the pancreas going against pancreatitis. Patient CTA did not reveal any type of dissection or obstruction. Lactic acid was normal togoing against ischemic changes. There is incidental note of cholelithiasis but no secondary changes to suggest acute cholecystitis. The patient did have mild elevation to his direct and total bilirubin which could indicate that this was potential biliary colic. However this time the patient is pain-free vitals are stable and therefore there is no signs of secondary infection or cardiac event or vascular issue he can be discharged home and follow-up with his family doctoron outpatient basis to further assess the cause of his abdominal pain and new founded cholelithiasis. History & Record Review Discussion w/independent historian: Patient and Significant other Lab Data Attestation: I reviewed the patient's lab results. Labs: Laboratory Results - last 24 hr 03/11/23 03/11/23 03/11/23 04:48 05:15 06:22 WBC 7.9 RBC 3.20 L Hgb 10.8 L Hct 32.8 L MCV 102.5 H MCH 33.8 H MCHC 32.9 RDW Std Deviation 61.7 H RDW Coeff of Jose 16.7 H Plt Count 401 MPV 9.4 Immature Gran % (Auto) 0.600 Neut % (Auto) 45.3 L Lymph % (Auto) 31.9 Alger % (Auto) 16.9 H Eos % (Auto) 3.8 Baso % (Auto) 1.5 H Absolute Neuts (auto) 3.6 Absolute Lymphs (auto) 2.51 Nucleated RBC % 0.3 PT 12.9 INR 1.0 APTT 31.0 Sodium 143 Potassium 4.1 Chloride 109 H Carbon Dioxide 29.0 Anion Gap 5 BUN 18 Creatinine 0.74 Estim Creat Clear Calc 65.14 Est GFR (MDRD) Af Amer 133 Est GFR (MDRD) Non-Af 110 BUN/Creatinine Ratio 24.3 H Glucose 98 Lactic Acid 0.7 Calcium 8.6 Total Bilirubin 1.10 H Direct Bilirubin 0.32 H AST 17 ALT 25 Alkaline Phosphatase 62 Troponin I High Sens 6 Total Protein 6.7 Albumin 3.9 Globulin 2.8 Lipase 37 Urine Color Yellow Urine Clarity Clear Urine pH 7.0 Ur Specific Avilla 1.010 Urine Protein Negative Urine Glucose (UA) Normal Urine Ketones Negative Urine Occult Blood Negative Urine Nitrite Negative Urine Bilirubin Negative Urine Urobilinogen Normal Ur Leukocyte Esterase Negative Urine RBC 0 SEEN Urine WBC 0 SEEN Ur Squamous Epith Cells 0 SEEN Urine Bacteria 0 SEEN Urine Mucus 0 SEEN Radiography Diagnostic Testing: Clinical Impression(s) from Imaging Studies Chest/Abdomen/Pelvis CTA 03/11/23 05:01 IMPRESSION: 1. No evidence for pulmonary embolism, aortic aneurysm, or aortic dissection. 2. No evidence for stenosis or occlusion of major abdominal or pelvic arteries. 3. Atelectasis in the posterior lung bases. Cannot exclude active right lower lobe pneumonia. 4. Mild hydronephrosis of left kidney without demonstrated left urinary calculus. Potential etiologies would include recent passage of a left ureteral calculus, pyelonephritis, vesicoureteral reflux, or left ureteral obstruction of indeterminate etiology. 5. Small nonobstructive right renal calculus. 6. Coronary artery atherosclerosis. 7. Gallstones. 8. Fatty liver. 9. Colonic diverticulosis without evidence for acute diverticulitis. Electronically Signed: Edvin Pak MD at 6:23 EDT Reading Location ID and State: [facility] / [place] , Service support , Discharge Plan Triage Chief Complaint: Abd Pain ED Provider: Jean Claude Howell Dx/Rx/DC Orders Clinical Impression: Nonspecific abdominal pain, Hydronephrosis of left kidney, Cholelithiasis Instructions: ED Abdominal Pain Gallstone Poss Prescriptions: No Action tamsulosin 0.4 mg capsule 0.4 mg PO QHS atorvastatin 40 mg tablet 40 mg PO DAILY Primary Care Provider: [facility] Referrals: [facility] [Primary Care Provider] - Activity Restrictions/Additional Instructions: Please follow-up with your family doctor to discuss obtaining outpatient gallbladder ultrasound and/or HIDA scan. Your CT scan today did show a few small gallbladder stones and there is slight elevation to your total and direct bilirubin which could be related to potential gallstone or gallbladder disease. Please avoid greasy fatty foods as this could stimulate gallbladder irritation. If you have worsening of symptoms or any further concerns please return to the ER for repeat evaluation Disposition Disposition: Home, Self Care What to do if you have Problems For any increased pain, shortness of breath, bleeding, nausea or vomiting, chestpain, or any unexpected problems, contact your Primary Care Provider. Call [facility] ([phone]) or report to the closest Emergency Room. Call 911 if necessary. 03/11/23 0718 <Electronically signed by Jean Claude Howell DO> Cosigner Signature (if applicable): CC: [facility] ~ Signed [facility] Work Phone: Discharge summary Author Andrade Epstein [facility] Note Date/Time July 30, 2024 12:[address] [facility] Medical Records Department [address] [place] [address] Instructions for Home/Discharge Instructions 07/30/24 1251 MR#: [id number] Acct: [id number] Name: AMADO GALLARDO Rep #:[id number] : 1950 73 From: Andrade Epstein MD PCP: [facility] Status:REG [facility] Discharge Instructions Diet Discharge Diet: Light diet - advance as tolerated Activity Discharge Activity: Return to Normal Activity and May Shower May shower in (days): 1 Ice area for (Minutes): 30 Dressing / Incision Call your doctor if your incision/area has: Continuous Slow Oozing, Sudden Increased Bleeding, Increased Pain/ Swelling, Increased Redness, Foul Smelling Discharge and Swelling at the incision site Call your doctor if you observe: Fever of 101 or Higher Remove Dressing in: 3 days Cleanse incision/area with: Soap & Water Follow Up Care Test Results: Test results from this visit will be discussed in further detail at your follow- up appointment, if applicable. Discharge Plan Admission Primary Reason for Your Visit: Port placement Attending Provider: Andrade Epstein Primary Care Provider: [place], [place] Instructions Print Language: Togolese Discharge Orders/Prescriptions Prescriptions: New oxycodone-acetaminophen [Percocet] 5-325 mg tablet 1 tab PO Q8H PRN (Reason: pain) 3 Days Qty: 5 0RF Continued atorvastatin 40 mg tablet 40 mg PO DAILY latanoprost 0.005 % drops 1 drp ophthalmic (eye) QDAY prochlorperazine maleate 10 mg tablet 10 mg PO Q6H PRN (Reason: nausea and vomiting) Qty: 30 2RF Patient Comments: hasn't taken yet ondansetron 8 mg tablet,disintegrating 8 mg PO Q8H PRN (Reason: nausea and vomiting) Qty: 30 2RF Patient Comments: hasn't taken yet lidocaine-prilocaine 2.5-2.5 % cream 1 applic topical ONCE PRN (Reason: port access) 30 Days Qty: 30 2RF Patient Comments: hasn't taken yet Referrals / Follow Up: [facility] [Primary Care Provider] - Disposition Disposition (needs filled in before D/C Order can be placed): Home, Self Care 07/30/24 1254<Electronically signed by Andrade Epstein MD>Andrade Epstein MD CC: [facility] ~ Signed [facility] Work Phone: Evaluation noteNo assessment information available [facility] Work Phone: Evaluation note* Diagnosis Primary pancreatic adenocarcinoma (HCC)- Primary Malignant neoplasm of pancreas, part unspecified Esophageal carcinoma (HCC) Malignant neoplasm of esophagus, unspecified site Dysphagia, unspecified type Pain of upper abdomen Abdominal pain, other specified site [facility] Lung cancer (CMS/HCC V24, CMS/HCC V28) Malignant neoplasm of bronchus and lung, unspecified site documented in this encounter [facility] Discharge instructions Additional Instructions Please follow-up with your family doctor to discuss obtaining outpatient gallbladder ultrasound and/or HIDA scan. Your CT scan today did show a few small gallbladder stones and there is slight elevation to your total and direct bilirubin which could be related to potential gallstone or gallbladder disease. Please avoid greasy fatty foods as this could stimulate gallbladder irritation. If you have worsening of symptoms or any further concerns please return [facility] the [facility] Work Phone: Hospital Discharge instructionsAmbulatory Orders* Prior Authorization Referral - ONC/HEM Location: None Selected [facility] Work Phone: Instructions* Name Dates Details Patient Instructions Indication:Hyperlipidemia, unspecified Start:04-Jun-2014 Instruction Type:Provider Instructions for Treatment Patient Instructions Indication:Pre-operative examination Start:05-Jan-2014 Instruction Type:Provider Instructions for Treatment Patient Instructions Indication:Enlarged prostate with lower urinary tract symptoms Start:28-Jul-2013 Instruction Type:Provider Instructions for Treatment Patient Instructions Indication:Hypertension Start:16-Dec-2012 Instruction Type:Provider Instructions for Treatment Patient Instructions Indication:Hypertension Start:23-Jun-2012 Instruction Type:Provider Instructions for Treatment Sore throat: diagnosis and treatment Indication:Pharyngitis, acute Start:29-Jul-2007 Instruction Type:Patient Education [facility] Work Phone: progress note Author Zulay Celis [facility] Note Date/Time October 27, 2024 9:42a m [facility] [address] [address] OFFICE VISIT Date of Service: 10/27/24 0906 MR#: [id number] Acct: [id number] Name: AMADO GALLARDO Rep #: [id number] : 1950 From: Zulay wills MD Age/Sex: 74/M Location: [facility] [place] Status: Signed HPI Subjective Date of Service 10/27/24 Chief Complaint Metastatic esophageal cancer History of Present Illness 74-year-old gentleman, who experienced increasing dysphagia, epigastric discomfort and 25 pound weight loss with onset around December 2023. June 15, 2024 CT chest abdomen and pelvis: IMPRESSION: Multiple new pulmonary nodules measuring up to 10 mm, concerning for pulmonary metastases. Mild pneumonia or pneumonitis in the lower lobes. Mild left supraclavicular and mediastinal lymphadenopathy, also concerning for metastasis. Multiple new liver masses, concerning for metastases. 1.5 cm pancreatic mass, suspicious for malignancy with mild retroperitoneal lymphadenopathy. Cholelithiasis. Right nephrolithiasis. June 23, 2024 upper EUS: Impression: 2 cm hypoechoic echoic mass was identified in the pancreatic body stage T2 N2 byEndo sonographic criteria. FNA obtained. A mass was found at the GE junction, tissue was obtained stage T3 N3 by endosonography criteria At least 2 suspected metastatic lesions in the liver. Many malignant appearing lymph nodes visualized in the lower paraesophageal mediastinum, gastrohepatic ligament, celiac region and peripancreatic region. June 25, 2024 pathology: EUS FNA pancreatic body mass malignant cells present the right from adenocarcinoma. Distal esophagus mass biopsy: Invasive moderate to poorly differentiated adenocarcinoma PD-L1 analysis GE junction adenocarcinoma, expressed (15) HER2 2+ by IHC, negative by FISH June 25, 2024 PET/CT initial stagin. Large intense metabolic mass at the GE junction extending to involve the adjacent stomach noted. This is highly suspicious for primary malignancy. 2. Extensive metastases involving bilateral lung parenchyma, right and left hepatic lobes noted. 3. Intense metabolic left supraclavicular node mediastinal and retroperitoneal nodes suspicious for metastasis. 4. Intense metabolic mass that appears to be within the body of the pancreas issuspicious for malignancy or metastases although cannot exclude meka metastasis. 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 October 21, 2024 CT chest abdomen and pelvis: IMPRESSION: Since prior study, there has been almost complete clearing of the previously seen nodules in the lower lobes of both lungs as well as the liver metastasis. Improvement of the hypodense lesion in the body of the pancreas. Gallstones. Treatment summary and response: FOLFOX nivolumab August 04, 2024-ID. [facility] Medical History (Updated 10/27/24 @ 09:[address] 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 Regional lymph node metastasis present Esophageal cancer Pancreatic cancer CAD (coronary artery disease) Cough with hemoptysis Wears glasses Prostate disease High cholesterol Former smoker History of echocardiogram Cardiology follow-up encounter Screen for colon cancer Hepatic cyst Carotid artery stenosis Dyspnea Anemia, mild Atonic bladder BPH (benign prostatic hyperplasia) Hyperlipidemia Hemoptysis Surgical History History of foot surgery History of colonoscopy (~2007) Family History Father Heart disease CHF (congestive heart failure) Myocardial infarction 60 Mother Heart disease CHF (congestive heart failure) Brother CAD (coronary artery disease), Onset Age: 40 stent placement Bladder cancer Brother CVA (cerebral vascular accident) Social History Smoking Status: Former smoker alcohol intake: current alcohol intake frequency: a few times a week Alcohol type: beer substance use type: does not use caffeine: Yes Type: coffee Number of servings: 1 what type of physical activity do you participate in: walking frequency: daily duration: 30-45 minutes/day ROS ROS Narrative I feel a lot better Constitutional Constitutional: Reports systems reviewed and no addt'l complaints, except as documented, fatigue and other Details: Last fatigue, able to do ADL and house duties at own pace ; Denies anorexia, fever(s), night sweats or weight loss Eyes Eyes: Reports systems reviewed and no addt'l complaints, except as documented ENT HEENT: Reports systems reviewed and no addt'l complaints, except as documented and other Details: Mouth lesions managed with BMX ; Denies mouth lesions Cardiovascular Cardiovascular: Reports systems reviewed and no addt'l complaints, except as documented; Denies chest pain with activity or edema Respiratory/Chest Respiratory/Chest: Reports systems reviewed and no addt'l complaints, except as documented; Denies cough, dyspnea on exertion or hemoptysis Gastrointestinal Gastrointestinal: Reports systems reviewed and no addt'l complaints, except as documented and constipation; Denies abdominal pain, anorexia, change in stool character, dysphagia, heartburn, hematochezia, melena, nausea or vomiting Genitourinary Genitourinary: Reports systems reviewed and no addt'l complaints, except as documented Musculoskeletal Musculoskeletal: Reports systems reviewed and no addt'l complaints, except as documented and other Details: A chronic injury of the right ankle, wears a brace; Denies back pain Integumentary Integumentary: Reports systems reviewed and no addt'l complaints, except as documented; Denies new lesions Neurologic Neurologic: Reports systems reviewed and no addt'l complaints, except as documented; Denies focal weakness or paresthesias Psychiatric Psychiatric: Reports systems reviewed and no addt'l complaints, except as documented Endocrine Endocrinology: Reports systems reviewed and no addt'l complaints, except as documented Hematologic/Lymphatic Hematologic/Lymphatic: Reports systems reviewed and no addt'l complaints, exceptas documented; Denies easy bleeding, easy bruising or lymphadenopathy Intake Vital Signs 10/13/24 09:37 10/13/24 10:25 10/27/24 09:12 10/27/24 09:15 Height 5 ft 10 in 5 ft 10 in 5 ft 10 in 5 ft 10 in Weight: 58.627 kg BMI 18.5 BP 118/75 Blood Pressure Location Lt brachial Position Sitting Respiration 18 Pulse 71 Pulse Source Monitor Temp 97.8 F Temperature Source Temporal Artery Pulse Oximetry (%) 97 Oxygen Delivery Method room air Intake Is patient in pain?: No Allergies No Known Allergies Allergy (Verified 10/27/24 09:11) Medications ?Medication ?Instructions ?Recorded ?Confirmed ?Type atorvastatin 40 mg tablet 40 mg PO DAILY 01/12/2108/18 History latanoprost 0.005 % eye drops 1 drp ophthalmic (eye) Q DAY 07/14/24 10/27/24 History lidocaine-prilocaine 2.5 %-2.5 % 1 applic topical ONCE PRN port 07/27/24 10/27/24 Rx topical cream access 30 days #30 grams ondansetron 8 mg disintegrating 8 mg PO Q8H PRN nausea and 07/27/24 10/27/24 Rx tablet vomiting #30 tabs prochlorperazine maleate 10 mg 10 mg PO Q6H PRN nausea and 07/27/24 10/27/24 Rx tablet vomiting #30 tabs oxycodone-acetaminophen 5 mg-325 1 tab PO Q8H PRN pain 3 days #5 07/30/24 10/27/24 Rx mg tablet (Percocet) tabs MAGIC MOUTH WASH (BMX) 180 mL 15 ml PO Q4H PRN Pain #1 80 mL 08/04/24 10/27/24 Rx suspension nystatin 100,000 unit/mL oral 5 ml PO TID #473 mL 08/2610/27/24 Rx suspension Have you fallen in the past year?: No Central Venous Access Central Venous Access: Yes Port/PICC: Port CBC, October 27, 2024 reviewed in EMR Exam Physical Exam Narrative ECOG 1 Const alert, oriented x3 and no apparent distress HEENT Face and Sinus: normal facial exam Mouth: oral and palatal mucosa normal and No thrush Eyes General Eye: normal appearance of both eyes Neck no lymphadenopathy and no JVD Chest Chest: vascular access Resp clear to auscultation bilaterally Cardio regular rate and regular rhythm Jugular Venous Distention: Negative for JVD GI soft to palpation, non-tender and non-distended; Negative for hepatosplenomegaly Back/Spine no thoracic nor lumbar tenderness Extremity no clubbing, cyanosis or edema Extremity Narrative: Right ankle brace Skin no rashes or lesions noted Neuro oriented x3, CN's II-XII intact bilaterally, moves all extremities and no focal motor deficits Coordination / Balance: [id number] test normal Speech: speech normal Gait (Neuro): normal gait Psych mental status grossly normal Coding Level of Care Code Off vis,est,level 4 Exam Problem Focused Diagnoses Malignant neoplasm of lower third of esophagus C15.5 Malignant neoplasm of esophagus location: lower third Regional lymph node metastasis present C77.9 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; C78.02 Metastasis to liver C78.7 Malignant neoplasm of body of pancreas C25.1 Pancreatic malignancy location: body of pancreas Assessment and Plan Assessment and Plan (1) Esophageal cancer: Status: Chronic Qualifiers: Malignant neoplasm of esophagus location: lower third Qualified Code(s): C15.5 - Malignant neoplasm of lower third of esophagus (2) Regional lymph node metastasis present: Status: Chronic (3) 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 Tumor is HER2 not overexpressed (IHC 2+ FISH negative) and PD-L1 over 1. An adenocarcinoma pathologically confirmed by FNA from the body of the pancreas in my opinion more likely metastases to adjacent lymph nodes rather than a second primary and less likely a second primary adenocarcinoma of the pancreas. The distinction is only of academic interest but has no clinical implications. Patient presented with several months of increasing dysphagia, epigastric discomfort and weight loss. Patient is anemic most likely due to cancer and chronic GI blood loss from the esophageal carcinoma. Started combination chemotherapy immunotherapy with modified FOLFOX 6 nivolumab August 04, 2024. Treatment is tolerated with no grade 3 or 4 toxicities the patient is subjectively responding. Imaging in September 2024 shows significant remission of his disease. Chronic comorbid conditions: Coronary artery disease, cerebrovascular disease, dyslipidemia. Plan: Based on NCCN guidelines and up-to-date review of management of metastaticadenocarcinoma of the GE junction with a palliative intent plus or minus a modest survival benefit. 1. Continue combination systemic therapy with FOLFOX and nivolumab. 2. Anemia; no evidence for iron deficiency supportive transfusion to maintain hemoglobin above 7 g per DL. 3. Nutrition consulted and patient was also referred to palliative care. 4. Elective imaging with CT scan of the chest and abdomen/pelvis every 3 monthsnext to schedule end of December 2024. Patient was seen, impression and plan discussed. Zulay Celis MD [employer], [facility] Divisions of Medical Oncology & Hematology Department of Internal Medicine [place] [id number] This note was generated using a voice recognition system software. Although itwas reviewed by the author prior to finalization, it may still contain incorrectwords, spelling, and punctuation that were not noted when reviewing prior to saving. If a clinically significant typo or inaccurately typed phrase is noted, please notify the author. Clinical Quality Measures Falls Risk Screening/Assistive Devices Have you fallen in the past year?: No 10/27/24 0942 <Electronically signed by Zulay marquez MD> Date _ Zulay Celis MD Cosigner Signature: Date (if applicable) CC: [facility] ~ [facility] Work Phone: Progress note Author Zulay Celis [facility] Note Date/Time February 16, 2025 9:55am [address] [address] OFFICE VISIT Date of Service: 02/16/25921 MR#: [id number] Acct: [id number] Name: AMADO GALLARDO Rep #: [id number] : 1950 From: Zulay wills MD Age/Sex: 74/M Location: [facility] – [place].[facility] Status: Signed HPI Subjective Date of Service 02/16/25 Chief Complaint Metastatic esophageal cancer History of Present Illness 74-year-old gentleman, who experienced increasing dysphagia, epigastric discomfort and 25 pound weight loss with onset around December 2023. June 15, 2024 CT chest abdomen and pelvis: IMPRESSION: Multiple new pulmonary nodules measuring up to 10 mm, concerning for pulmonary metastases. Mild pneumonia or pneumonitis in the lower lobes. Mild left supraclavicular and mediastinal lymphadenopathy, also concerning for metastasis. Multiple new liver masses, concerning for metastases. 1.5 cm pancreatic mass, suspicious for malignancy with mild retroperitoneal lymphadenopathy. Cholelithiasis. Right nephrolithiasis. June 23, 2024 upper EUS: Impression: 2 cm hypoechoic echoic mass was identified in the pancreatic body stage T2 N2 byEndo sonographic criteria. FNA obtained. A mass was found at the GE junction, tissue was obtained stage T3 N3 by endosonography criteria At least 2 suspected metastatic lesions in the liver. Many malignant appearing lymph nodes visualized in the lower paraesophageal mediastinum, gastrohepatic ligament, celiac region and peripancreatic region. June 25, 2024 pathology: EUS FNA pancreatic body mass malignant cells present the right from adenocarcinoma. Distal esophagus mass biopsy: Invasive moderate to poorly differentiated adenocarcinoma PD-L1 analysis GE junction adenocarcinoma, expressed (15) HER2 2+ by IHC, negative by FISH June 25, 2024 PET/CT initial stagin. Large intense metabolic mass at the GE junction extending to involve the adjacent stomach noted. This is highly suspicious for primary malignancy. 2. Extensive metastases involving bilateral lung parenchyma, right and left hepatic lobes noted. 3. Intense metabolic left supraclavicular node mediastinal and retroperitoneal nodes suspicious for metastasis. 4. Intense metabolic mass that appears to be within the body of the pancreas issuspicious for malignancy or metastases although cannot exclude meka metastasis. 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 October 21, 2024 CT chest abdomen and pelvis: IMPRESSION: Since prior study, there has been almost complete clearing of the previously seen nodules in the lower lobes of both lungs as well as the liver metastasis. Improvement of the hypodense lesion in the body of the pancreas. Gallstones. January 15, 2025 chest abdomen and pelvis CT: IMPRESSION: Increased airspace disease in the right lower lobe with areas of bronchiectasis and small cyst formation suggestive of possible scarring. Stable hypodensities in the liver. Treatment summary and response: FOLFOX nivolumab August 04, 2024-ID. 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 Regional lymph node metastasis present Esophageal cancer Pancreatic cancer CAD (coronary artery disease) Cough with hemoptysis Wears glasses Prostate disease High cholesterol Former smoker History of echocardiogram Cardiology follow-up encounter Screen for colon cancer Hepatic cyst Carotid artery stenosis Dyspnea Anemia, mild Atonic bladder BPH (benign prostatic hyperplasia) Hyperlipidemia Hemoptysis Surgical History History of foot surgery History of colonoscopy (~2007) Family History Father Heart disease CHF (congestive heart failure) Myocardial infarction 60 Mother Heart disease CHF (congestive heart failure) Brother CAD (coronary artery disease), Onset Age: 40 stent placement Bladder cancer Brother CVA (cerebral vascular accident) Social History Smoking Status: Former smoker alcohol intake: current alcohol intake frequency: a few times a week Alcohol type: beer substance use type: does not use caffeine: Yes Type: coffee Number of servings: 1 what type of physical activity do you participate in: walking frequency: daily duration: 30-45 minutes/day ROS Constitutional Constitutional: Reports systems reviewed and no addt'l complaints, except as documented, fatigue and other Details: able to do ADL and house duties at own pace ; Denies anorexia, fever(s), night sweats or weight loss Eyes Eyes: Reports systems reviewed and no addt'l complaints, except as documented ENT HEENT: Reports systems reviewed and no addt'l complaints, except as documented and other Details: Mouth lesions managed with BMX ; Denies mouth lesions Cardiovascular Cardiovascular: Reports systems reviewed and no addt'l complaints, except as documented; Denies chest pain with activity or edema Respiratory/Chest Respiratory/Chest: Reports systems reviewed and no addt'l complaints, except as documented; Denies cough, dyspnea on exertion or hemoptysis Gastrointestinal Gastrointestinal: Reports systems reviewed and no addt'l complaints, except as documented and constipation; Denies abdominal pain, anorexia, change in stool character, dysphagia, heartburn, hematochezia, melena, nausea or vomiting Genitourinary Genitourinary: Reports systems reviewed and no addt'l complaints, except as documented Musculoskeletal Musculoskeletal: Reports systems reviewed and no addt'l complaints, except as documented and other Details: A chronic injury of the right ankle, wears a brace; Denies back pain Integumentary Integumentary: Reports systems reviewed and no addt'l complaints, except as documented; Denies new lesions Neurologic Neurologic: Reports systems reviewed and no addt'l complaints, except as documented and paresthesias RUE and LUE (Paresthesias not interfering with function); Denies focal weakness Psychiatric Psychiatric: Reports systems reviewed and no addt'l complaints, except as documented Endocrine Endocrinology: Reports systems reviewed and no addt'l complaints, except as documented Hematologic/Lymphatic Hematologic/Lymphatic: Reports systems reviewed and no addt'l complaints, exceptas documented; Denies easy bleeding, easy bruising or lymphadenopathy Intake Vital Signs 01/19/25 09:45 02/16/25 09:24 02/16/25 09:26 Height 5 ft 10 in 5 ft 10 in 5 ft 10 in Weight: 56.699 kg BMI 17.9 BP 107/68 Blood Pressure Location Lt brachial Position Sitting Respiration 16 Pulse 82 Pulse Source Monitor Temp 98.0 F Temperature Source Temporal Artery Pulse Oximetry (%) 94 Oxygen Delivery Method room air Intake Is patient in pain?: No Allergies No Known Allergies Allergy (Verified 02/16/25 09:26) Medications ?Medication ?Instructions ?Recorded ?Confirmed ?Type atorvastatin 40 mg tablet 40 mg PO DAILY 01/12/2101/26 History latanoprost 0.005 % eye drops 1 drp ophthalmic (eye) Q DAY 07/14/24 02/16/25 History lidocaine-prilocaine 2.5 %-2.5 % 1 applic topical ONCE PRN port 07/27/24 02/16/25 Rx topical cream access 30 days #30 grams ondansetron 8 mg disintegrating 8 mg PO Q8H PRN nausea and 07/27/24 02/16/25 Rx tablet vomiting #30 tabs prochlorperazine maleate 10 mg 10 mg PO Q6H PRN nausea and 07/27/24 02/16/25 Rx tablet vomiting #30 tabs oxycodone-acetaminophen 5 mg-325 1 tab PO Q8H PRN pain 3 days #5 07/30/24 02/16/25 Rx mg tablet (Percocet) tabs MAGIC MOUTH WASH (BMX) 180 mL 15 ml PO Q4H PRN Pain #1 80 mL 08/04/24 02/16/25 Rx suspension nystatin 100,000 unit/mL oral 5 ml PO TID #473 mL 08/2602/16/25 Rx suspension Have you fallen in the past year?: No Central Venous Access Central Venous Access: Yes Port/PICC: Port CBC, CMP February 16, 2025 reviewed in EMR Exam Physical Exam Narrative ECOG 1 Const alert, oriented x3 and no apparent distress HEENT Face and Sinus: normal facial exam Mouth: oral and palatal mucosa normal and No thrush Eyes General Eye: normal appearance of both eyes Neck no lymphadenopathy and no JVD Chest Chest: vascular access Resp clear to auscultation bilaterally Cardio regular rate and regular rhythm Jugular Venous Distention: Negative for JVD GI soft to palpation, non-tender and non-distended; Negative for hepatosplenomegaly Back/Spine no thoracic nor lumbar tenderness Extremity no clubbing, cyanosis or edema Extremity Narrative: Right ankle brace Skin no rashes or lesions noted Neuro oriented x3, CN's II-XII intact bilaterally, moves all extremities and no focal motor deficits Coordination / Balance: [id number] test normal Speech: speech normal Gait (Neuro): normal gait Psych mental status grossly normal Coding Level of Care Code Off vis,est,level 4 Exam Problem Focused Diagnoses Malignant neoplasm of lower third of esophagus C15.5 Malignant neoplasm of esophagus location: lower third Regional lymph node metastasis present C77.9 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; C78.02 Metastasis to liver C78.7 Assessment and Plan Assessment and Plan (1) Esophageal cancer: Status: Chronic Qualifiers: Malignant neoplasm of esophagus location: lower third Qualified Code(s): C15.5 - Malignant neoplasm of lower third of esophagus (2) Regional lymph node metastasis present: Status: Chronic (3) 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: Status: Chronic (4) Metastasis to liver: Status: Chronic Orders: Orders Phosphorus 03/02/25 C15.5 - Malignant neoplasm of lower third of esophagus, C25.1 - Malignant neoplasm of body of pancreas, C77.9 - Secondary and unspecified malignant neoplasm of lymph node, unspecified, C78.01 - Secondary malignant neoplasm of right lung, C78.02 - Secondary malignant neoplasm of left lung, C78.7 - Secondary malignant neoplasm of liver and intrahepatic bile duct Free T4 03/02/25 C15.5 - Malignant neoplasm of lower third of esophagus, C25.1 - Malignant neoplasm of body of pancreas, C77.9 - Secondary and unspecified malignant neoplasm of lymph node, unspecified, C78.01 - Secondary malignant neoplasm of right lung, C78.02 - Secondary malignant neoplasm of left lung, C78.7 - Secondary malignant neoplasm of liver and intrahepatic bile duct Thyroid Stim Hormone (TSH) 03/02/25 C15.5 - Malignant neoplasm of lower third of esophagus, C25.1 - Malignant neoplasm of body of pancreas, C77.9 - Secondary and unspecified malignant neoplasm of lymph node, unspecified, C78.01 - Secondary malignant neoplasm of right lung, C78.02 - Secondary malignant neoplasm of left lung, C78.7 - Secondary malignant neoplasm of liver and intrahepatic bile duct CORTISOL AM 03/02/25 C15.5 - Malignant neoplasm of lower third of esophagus, C25.1 - Malignant neoplasm of body of pancreas, C77.9 - Secondary and unspecified malignant neoplasm of lymph node, unspecified, C78.01 - Secondary malignant neoplasm of right lung, C78.02 - Secondary malignant neoplasm of left lung, C78.7 - Secondary malignant neoplasm of liver and intrahepatic bile duct Plan 74-year-old gentleman with widely metastatic adenocarcinoma of the distal esophagus to regional as well as nonregional (mediastinal, left supraclavicular)lymph nodes, both lungs, liver. Tumor is HER2 not overexpressed (IHC 2+ FISH negative) and PD-L1 over 1. An adenocarcinoma pathologically confirmed by FNA from the body of the pancreas in my opinion more likely metastases to adjacent lymph nodes rather than a second primary The distinction is only of academic interest but has no clinical implications. Patient presented with several months of increasing dysphagia, epigastric discomfort and weight loss. Patient is anemic most likely due to cancer and chronic GI blood loss from the esophageal carcinoma. Started combination chemotherapy immunotherapy with modified FOLFOX 6 nivolumab August 04, 2024. Treatment is tolerated with no grade 3 or 4 toxicities the patient is subjectively and objectively responding. He has a grade 1 peripheral neuropathynot interfering with function. Imaging in September and December 2024 shows significant remission of his disease. Chronic comorbid conditions: Coronary artery disease, cerebrovascular disease, dyslipidemia. Plan: Based on NCCN guidelines and up-to-date review of management of metastaticadenocarcinoma of the GE junction with a palliative intent plus or minus a modest survival benefit. 1. Continue combination systemic therapy with FOLFOX and nivolumab. 2. Anemia; of cancer and chemotherapy no evidence for iron or B12 deficiency supportive transfusion to maintain hemoglobin above 7 g per DL if needed. 3. Nutrition consulted and patient was also referred to palliative care. 4. Elective imaging with CT scan of the chest and abdomen/pelvis every 3-4 months next to schedule April 2025. Patient was seen, impression and plan discussed. Zulay Celis MD Stra[employer] Kn[employer], [facility] Divisions of Medical Oncology & Hematology Department of Internal Medicine [address] [address] This note was generated using a voice recognition system software. Although itwas reviewed by the author prior to finalization, it may still contain incorrectwords, spelling, and punctuation that were not noted when reviewing prior to saving. If a clinically significant typo or inaccurately typed phrase is noted, please notify the author. Clinical Quality Measures Falls Risk Screening/Assistive Devices Have you fallen in the past year?: No 02/16/25 0955 <Electronically signed by Zulay marquez MD> Date _ Zulay Celis MD Cosigner Signature: Date (if applicable) CC: ~ [facility] Work Phone: Progress note Author Zulay Celis [facility] Note Date/Time March 09, 2025 1 0:05am [facility] [place] [address] OFFICE VISIT Date of Service: 03/09/25933 MR#: [id number] Acct: [id number] Name: AMADO GALLARDO Rep #: [id number] : 1950 From: Zulay wills MD Age/Sex: 74/M [place] [facility] [place]: Signed HPI Subjective Date of Service 03/09/25 Chief Complaint Metastatic esophageal cancer History of Present Illness 74-year-old gentleman, who experienced increasing dysphagia, epigastric discomfort and 25 pound weight loss with onset around December 2023. June 15, 2024 CT chest abdomen and pelvis: IMPRESSION: Multiple new pulmonary nodules measuring up to 10 mm, concerning for pulmonary metastases. Mild pneumonia or pneumonitis in the lower lobes. Mild left supraclavicular and mediastinal lymphadenopathy, also concerning for metastasis. Multiple new liver masses, concerning for metastases. 1.5 cm pancreatic mass, suspicious for malignancy with mild retroperitoneal lymphadenopathy. Cholelithiasis. Right nephrolithiasis. June 23, 2024 upper EUS: Impression: 2 cm hypoechoic echoic mass was identified in the pancreatic body stage T2 N2 byEndo sonographic criteria. FNA obtained. A mass was found at the GE junction, tissue was obtained stage T3 N3 by endosonography criteria At least 2 suspected metastatic lesions in the liver. Many malignant appearing lymph nodes visualized in the lower paraesophageal mediastinum, gastrohepatic ligament, celiac region and peripancreatic region. June 25, 2024 pathology: EUS FNA pancreatic body mass malignant cells present the right from adenocarcinoma. Distal esophagus mass biopsy: Invasive moderate to poorly differentiated adenocarcinoma PD-L1 analysis GE junction adenocarcinoma, expressed (15) HER2 2+ by IHC, negative by FISH June 25, 2024 PET/CT initial stagin. Large intense metabolic mass at the GE junction extending to involve the adjacent stomach noted. This is highly suspicious for primary malignancy. 2. Extensive metastases involving bilateral lung parenchyma, right and left hepatic lobes noted. 3. Intense metabolic left supraclavicular node mediastinal and retroperitoneal nodes suspicious for metastasis. 4. Intense metabolic mass that appears to be within the body of the pancreas issuspicious for malignancy or metastases although cannot exclude meka metastasis. 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 October 21, 2024 CT chest abdomen and pelvis: IMPRESSION: Since prior study, there has been almost complete clearing of the previously seen nodules in the lower lobes of both lungs as well as the liver metastasis. Improvement of the hypodense lesion in the body of the pancreas. Gallstones. January 15, 2025 chest abdomen and pelvis CT: IMPRESSION: Increased airspace disease in the right lower lobe with areas of bronchiectasis and small cyst formation suggestive of possible scarring. Stable hypodensities in the liver. Treatment summary and response: FOLFOX nivolumab August 04, 2024-February 16, 2025 ID. 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 Regional lymph node metastasis present Esophageal cancer Pancreatic cancer CAD (coronary artery disease) Cough with hemoptysis Wears glasses Prostate disease High cholesterol Former smoker History of echocardiogram Cardiology follow-up encounter Screen for colon cancer Hepatic cyst Carotid artery stenosis Dyspnea Anemia, mild Atonic bladder BPH (benign prostatic hyperplasia) Hyperlipidemia Hemoptysis Surgical History History of foot surgery History of colonoscopy (~2007) Family History Father Heart disease CHF (congestive heart failure) Myocardial infarction 60 Mother Heart disease CHF (congestive heart failure) Brother CAD (coronary artery disease), Onset Age: 40 stent placement Bladder cancer Brother CVA (cerebral vascular accident) Social History Smoking Status: Former smoker alcohol intake: current alcohol intake frequency: a few times a week Alcohol type: beer substance use type: does not use caffeine: Yes Type: coffee Number of servings: 1 what type of physical activity do you participate in: walking frequency: daily duration: 30-45 minutes/day ROS Constitutional Constitutional: Reports systems reviewed and no addt'l complaints, except as documented, fatigue and other Details: able to do ADL and house duties at own pace ; Denies anorexia, fever(s), night sweats or weight loss Eyes Eyes: Reports systems reviewed and no addt'l complaints, except as documented ENT HEENT: Reports systems reviewed and no addt'l complaints, except as documented and other Details: Mouth lesions managed with BMX ; Denies mouth lesions Cardiovascular Cardiovascular: Reports systems reviewed and no addt'l complaints, except as documented; Denies chest pain with activity or edema Respiratory/Chest Respiratory/Chest: Reports systems reviewed and no addt'l complaints, except as documented; Denies cough, dyspnea on exertion or hemoptysis Gastrointestinal Gastrointestinal: Reports systems reviewed and no addt'l complaints, except as documented; Denies abdominal pain, anorexia, change in stool character, dysphagia, heartburn, hematochezia, melena, nausea or vomiting Genitourinary Genitourinary: Reports systems reviewed and no addt'l complaints, except as documented Musculoskeletal Musculoskeletal: Reports systems reviewed and no addt'l complaints, except as documented and other Details: A chronic injury of the right ankle, wears a brace; Denies back pain Integumentary Integumentary: Reports systems reviewed and no addt'l complaints, except as documented; Denies new lesions Neurologic Neurologic: Reports systems reviewed and no addt'l complaints, except as documented, paresthesias RUE and LUE (Paresthesias not interfering with function), weakness and other Details: Noticed that there are occasions when he was dropping things from his hands. ; Denies focal weakness or frequent falls Psychiatric Psychiatric: Reports systems reviewed and no addt'l complaints, except as documented Endocrine Endocrinology: Reports systems reviewed and no addt'l complaints, except as documented Hematologic/Lymphatic Hematologic/Lymphatic: Reports systems reviewed and no addt'l complaints, exceptas documented; Denies easy bleeding, easy bruising or lymphadenopathy Intake Vital Signs 03/02/25 09:34 03/09/25 09:35 03/09/25 09:40 Height 5 ft 10 in 5 ft 10 in 5 ft 10 in Weight: 55.452 kg 55.905 kg BMI 17.5 17.6 BP 109/71 114/75 Blood Pressure Location Lt brachial Lt brachial Position Sitting Sitting Respiration 18 16 Pulse 82 72 Pulse Source Monitor Monitor Temp 98.1 F 98.2 F Temperature Source Temporal Artery Temporal Artery Pulse Oximetry (%) 93 94 Oxygen Delivery Method room air room air Intake Is patient in pain?: No Allergies No Known Allergies Allergy (Verified 03/09/25 09:37) Medications ?Medication ?Instructions ?Recorded ?Confirmed ?Type atorvastatin 40 mg tablet 40 mg PO DAILY 01/12/2102/24 History latanoprost 0.005 % eye drops 1 drp ophthalmic (eye) Q DAY 07/14/24 03/09/25 History lidocaine-prilocaine 2.5 %-2.5 % 1 applic topical ONCE PRN port 07/27/24 03/09/25 Rx topical cream access 30 days #30 grams ondansetron 8 mg disintegrating 8 mg PO Q8H PRN nausea and 07/27/24 03/09/25 Rx tablet vomiting #30 tabs prochlorperazine maleate 10 mg 10 mg PO Q6H PRN nausea and 07/27/24 03/09/25 Rx tablet vomiting #30 tabs oxycodone-acetaminophen 5 mg-325 1 tab PO Q8H PRN pain 3 days #5 07/30/24 03/09/25 Rx mg tablet (Percocet) tabs MAGIC MOUTH WASH (BMX) 180 mL 15 ml PO Q4H PRN Pain #1 80 mL 08/04/24 03/09/25 Rx suspension nystatin 100,000 unit/mL oral 5 ml PO TID #473 mL 08/2603/09/25 Rx suspension Have you fallen in the past year?: No Central Venous Access Central Venous Access: Yes Port/PICC: Port CBC, CMP March 09, 2025 reviewed in EMR Exam Physical Exam Narrative ECOG 1 Const alert, oriented x3 and no apparent distress HEENT Face and Sinus: normal facial exam Mouth: oral and palatal mucosa normal and No thrush Eyes General Eye: normal appearance of both eyes Neck no lymphadenopathy and no JVD Chest Chest: vascular access Resp clear to auscultation bilaterally Cardio regular rate and regular rhythm Jugular Venous Distention: Negative for JVD GI soft to palpation, non-tender and non-distended; Negative for hepatosplenomegaly Back/Spine no thoracic nor lumbar tenderness Extremity no clubbing, cyanosis or edema Extremity Narrative: Right ankle brace Skin no rashes or lesions noted Neuro oriented x3, CN's II-XII intact bilaterally, moves all extremities and no focal motor deficits Coordination / Balance: [id number] test normal Speech: speech normal Gait (Neuro): normal gait Psych mental status grossly normal Coding Level of Care Code Off vis,est,level 4 Exam Problem Focused Diagnoses Malignant neoplasm of lower third of esophagus C15.5 Malignant neoplasm of esophagus location: lower third Regional lymph node metastasis present C77.9 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; C78.02 Metastasis to liver C78.7 Assessment and Plan Assessment and Plan (1) Esophageal cancer: Status: Chronic Qualifiers: Malignant neoplasm of esophagus location: lower third Qualified Code(s): C15.5 - Malignant neoplasm of lower third of esophagus (2) Regional lymph node metastasis present: Status: Chronic (3) 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 Tumor is HER2 not overexpressed (IHC 2+ FISH negative) and PD-L1 over 1. An adenocarcinoma pathologically confirmed by FNA from the body of the pancreas in my opinion more likely metastases to adjacent lymph nodes rather than a second primary The distinction is only of academic interest but has no clinical implications. Patient presented with several months of increasing dysphagia, epigastric discomfort and weight loss. Patient is anemic most likely due to cancer and chronic GI blood loss from the esophageal carcinoma. Started combination chemotherapy immunotherapy with modified FOLFOX 6 nivolumab August 04, 2024. Treatment is tolerated with no grade 3 or 4 toxicities the patient is subjectively and objectively responding. However by January 2025 he has developed grade 3 neuropathy (dropping items from hands) and increasing cytopenias. Imaging in September and December 2024 shows significant remission of his disease. Chronic comorbid conditions: Coronary artery disease, cerebrovascular disease, dyslipidemia. Plan: Based on NCCN guidelines and up-to-date review of management of metastaticadenocarcinoma of the GE junction with a palliative intent plus or minus a modest survival benefit. 1. Continue combination systemic therapy with fluorouracil and nivolumab holding oxaliplatin as of March 09, 2025. 2. Anemia; of cancer and chemotherapy no evidence for iron or B12 deficiency supportive transfusion to maintain hemoglobin above 7 g per DL if needed. 3. Nutrition consulted and patient was also referred to palliative care. 4. Elective imaging with CT scan of the chest and abdomen/pelvis every 3-4 months next to schedule March 2025. Patient was seen with his 2 sons, impression and plan discussed. Zulay Cleis MD [employer], [facility] Divisions of Medical Oncology & Hematology Department of Internal Medicine [address] [id number] This note was generated using a voice recognition system software. Although itwas reviewed by the author prior to finalization, it may still contain incorrectwords, spelling, and punctuation that were not noted when reviewing prior to saving. If a clinically significant typo or inaccurately typed phrase is noted, please notify the author. Clinical Quality Measures Falls Risk Screening/Assistive Devices Have you fallen in the past year?: No 03/09/25 1005 <Electronically signed by Zulay marquez MD> Date _ Zulay Celis MD Cosigner Signature: Date (if applicable) CC: ~ [facility] Work Phone: Reason for referral (narrative)No reason for referral information availableBl[facility] Work Phone: Family History No Family History Records FoundUnknown Family Member Name Dates Details Family Members In General Comments:ETOH, Drug abuse, H eart/Lung, HBP, Seizures, stroke, Suicide Status:Active Relationship Condition Age at Onset Recorded Date/T joseline father Cardiac disease Unknown mother Cardiac disease Unknown brother Coronary artery disease 40 Relationship Condition Age at Onset Recorded Date/T joseline father Cardiac disease Unknown Congestive heart failure Unknown Myocardial infarction Unknown mother Cardiac disease Unknown brother Coronary artery disease 40 brother Cerebrovascular accident (CVA) Unknown Relationship Condition Age at Onset Recorded Date/T joseline father Cardiac disease Unknown Congestive heart failure Unknown Myocardial infarction Unknown mother Cardiac disease Unknown brother Coronary artery disease 40 Malignant neoplasm of urinary bladder Unk nown brother Cerebrovascular accident (CVA) Unknown Chief Complaint and Reason for Visit Chief Complaint CALCIFIED GRANULOMAS Chief Complaint CHRONIC HEMOPTYSIS Chief Complaint CHRONIC HEMOPTYSIS abd pain Chief Complaint CHRONIC HEMOPTYSIS abd pain ASHD W/O ANGINA ASHD W/O ANGINA Chief Complaint Admit Date ABN WEIGHT LOSS June 15, 2024 2 :35pm Amb Documentation July 14, 2024 4:31pm MET PANCREAS AND ESOPHAGEAL CA July 20, 2024 9:05am 1WK LABS NEW START July 20, 2024 10:12am CHEMO ED July 27, 2024 2:45 pm PORT PLACEMENT July 28, 2024 10:0 2am Reason for Visit Admit Date 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 July 20, 2024 9:05am Esophageal cancer July 20, 2024 9:05am Malignant cachexia July 20, 2024 9:05am Metastasis to liver July 20, 2024 9:05am Pancreatic cancer July 20, 2024 9:05am Regional lymph node metastasis present F ebruary 2024 9:05am Iron deficiency anemia due to chronic bl ood loss July 20, 2024 9:05am 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 July 27, 2024 2:45pm Encounter for education July 27, 2024 2:45pm Esophageal cancer July 27, 2024 2:45 pm Malignant cachexia July 27, 2024 2:45 pm Metastasis to liver July 27, 2024 2:45 pm Pancreatic cancer July 27, 2024 2:45 pm Regional lymph node metastasis present M [facility] 2024 2:45pm Malignant cachexia July 28, 2024 10:0 2am Metastasis to liver July 30, 2024 10:2 9am Chief Complaint Admit Date ABN WEIGHT LOSS June 15, 2024 2 :35pm Amb Documentation July 14, 2024 4:31pm MET PANCREAS AND ESOPHAGEAL CA July 20, 2024 9:05am CHEMO ED July 27, 2024 2:45 pm PORT PLACEMENT July 28, 2024 10:0 2am 1WK LABS NEW START August 04, 2024 8:0 0am TOX CHECK - LABS August 11, 2024 2:0 1pm 2 WKS - LABS - FOLFOX/NIVO August 18, 2 025 8:08am TOX CHECK - LABS August 24, 2024 1:3 0pm 2 WKS - LABS - FOLFOX September 01, 2024 7: 43am 2 WKS - LABS - FOLFOX/NIVO September 15, 2 025 8:07am 2WKS LABS FOLFOX/NIVO September 29, 2024 8:36 am 2 WKS - LABS - FOLFOX/NIVO October 13 8:36am 1WK LABS NEW START October 13, 2024 8:45a m Reason for Visit Admit Date 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 July 20, 2024 9:05am Esophageal cancer July 20, 2024 9:05am Metastasis to liver July 20, 2024 9:05am Pancreatic cancer July 20, 2024 9:05am Regional lymph node metastasis present F ebruary 2024 9:05am Iron deficiency anemia due to chronic bl ood loss July 20, 2024 9:05am Malignant cachexia July 20, 2024 9:05am 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 July 27, 2024 2:45pm Encounter for education July 27, 2024 2:45pm Esophageal cancer July 27, 2024 2:45 pm Metastasis to liver July 27, 2024 2:45 pm Pancreatic cancer July 27, 2024 2:45 pm Regional lymph node metastasis present [facility] 2024 2:45pm Malignant cachexia July 27, 2024 2:45 pm Malignant cachexia July 28, 2024 10:0 2am Metastasis to liver July 30, 2024 10:2 9am 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 August 04, 2024 8:00am Esophageal cancer August 04, 2024 8:0 0am Metastasis to liver August 04, 2024 8:0 0am Pancreatic cancer August 04, 2024 8:0 0am Regional lymph node metastasis present [facility] 2024 8:00am Malignant cachexia August 04, 2024 8:0 0am 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 August 11, 2024 2:01pm Esophageal cancer August 11, 2024 2:0 1pm Metastasis to liver August 11, 2024 2:0 1pm Pancreatic cancer August 11, 2024 2:0 1pm Regional lymph node metastasis present [facility] 2024 2:01pm Malignant cachexia August 11, 2024 2:0 1pm 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 August 18, 2024 8:08am Diarrhea August 18, 2024 8:0 8am Esophageal cancer August 18, 2024 8:0 8am Metastasis to liver August 18, 2024 8:0 8am Pancreatic cancer August 18, 2024 8:0 8am Regional lymph node metastasis present [facility] 2024 8:08am Malignant cachexia August 18, 2024 8:0 8am 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 August 24, 2024 1:30pm Esophageal cancer August 24, 2024 1:3 0pm Metastasis to liver August 24, 2024 1:3 0pm Pancreatic cancer August 24, 2024 1:3 0pm Regional lymph node metastasis present M [facility] 2024 1:30pm Malignant cachexia August 24, 2024 1:3 0pm 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 September 01, 2024 7:43am Encounter for chemotherapy management Ap ril 2024 7:43am Esophageal cancer September 01, 2024 7:43 am Metastasis to liver September 01, 2024 7:43 am Pancreatic cancer September 01, 2024 7:43 am Regional lymph node metastasis present A pril 2024 7:43am Malignant cachexia September 01, 2024 7:43 am 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 September 15, 2024 8:07am Encounter for antineoplastic immunothera py September 15, 2024 8:07am Encounter for chemotherapy management Ap ril 2024 8:07am Esophageal cancer September 15, 2024 8:0 7am Metastasis to liver September 15, 2024 8:0 7am Pancreatic cancer September 15, 2024 8:0 7am Regional lymph node metastasis present A pril 2024 8:07am Malignant cachexia September 15, 2024 8:0 7am 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 September 29, 2024 8:36am Esophageal cancer September 29, 2024 8:36am Metastasis to liver September 29, 2024 8:36am Pancreatic cancer September 29, 2024 8:36am Regional lymph node metastasis present M ay 2024 8:36am Malignant cachexia September 29, 2024 8:36am 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 October 13, 2024 8:36am Esophageal cancer October 13, 2024 8:36a m Metastasis to liver October 13, 2024 8:36a m Pancreatic cancer October 13, 2024 8:36a m Regional lymph node metastasis present M ay 2024 8:36am Chief Complaint Admit Date Amb Documentation July 14, 2024 4:31pm MET PANCREAS AND ESOPHAGEAL CA July 20, 2024 9:05am CHEMO ED July 27, 2024 2:45 pm PORT PLACEMENT July 28, 2024 10:0 2am 1WK LABS NEW START August 04, 2024 8:0 0am TOX CHECK - LABS August 11, 2024 2:0 1pm 2 WKS - LABS - FOLFOX/NIVO August 18 025 8:08am TOX CHECK - LABS August 24, 2024 1:3 0pm 2 WKS - LABS - FOLFOX September 01, 2024 7: 43am 2 WKS - LABS - FOLFOX/NIVO September 15, 025 8:07am 2WKS LABS FOLFOX/NIVO September 29, 2024 8:36 am 2 WKS - LABS - FOLFOX/NIVO October 13 8:36am 1WK LABS October 15, 2024 2:00p m IV & PO October 21, 2024 8:02a m Chief Complaint Admit Date Amb Documentation July 14, 2024 4:31pm MET PANCREAS AND ESOPHAGEAL CA July 20, 2024 9:05am CHEMO ED July 27, 2024 2:45 pm PORT PLACEMENT July 28, 2024 10:0 2am 1WK LABS August 04, 2024 8:0 0am TOX CHECK - LABS August 11, 2024 2:0 1pm 2 WKS - LABS - FOLFOX/NIVO August 18 025 8:08am TOX CHECK - LABS August 24, 2024 1:3 0pm 2 WKS - LABS - FOLFOX September 01, 2024 7: 43am 2 WKS - LABS - FOLFOX/NIVO September 15 025 8:07am 2WKS LABS FOLFOX/NIVO September 29, 2024 8:36 am 2 WKS - LABS - FOLFOX/NIVO October 13 8:36am IV & PO October 21, 2024 8:02a m 1WK LABS October 27, 2024 8:30a m 2 WKS - LABS - FOLFOX/NIVO -REVIEW SCANS October 27, 2024 8:33am Reason for Visit Admit Date 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 July 20, 2024 9:05am Esophageal cancer July 20, 2024 9:05am Iron deficiency anemia due to chronic bl ood loss July 20, 2024 9:05am Metastasis to liver July 20, 2024 9:05am Pancreatic cancer July 20, 2024 9:05am Regional lymph node metastasis present F ebruary 2024 9:05am Malignant cachexia July 20, 2024 9:05am 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 July 27, 2024 2:45pm Esophageal cancer July 27, 2024 2:45 pm Metastasis to liver July 27, 2024 2:45 pm Pancreatic cancer July 27, 2024 2:45 pm Regional lymph node metastasis present [facility] 2024 2:45pm Encounter for education July 27, 2024 2:45pm Malignant cachexia July 27, 2024 2:45 pm Malignant cachexia July 28, 2024 10:0 2am Metastasis to liver July 30, 2024 10:2 9am 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 August 04, 2024 8:00am Esophageal cancer August 04, 2024 8:0 0am Metastasis to liver August 04, 2024 8:0 0am Pancreatic cancer August 04, 2024 8:0 0am Regional lymph node metastasis present [facility] 2024 8:00am Malignant cachexia August 04, 2024 8:0 0am 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 August 11, 2024 2:01pm Esophageal cancer August 11, 2024 2:0 1pm Metastasis to liver August 11, 2024 2:0 1pm Pancreatic cancer August 11, 2024 2:0 1pm Regional lymph node metastasis present M [facility] 2024 2:01pm Malignant cachexia August 11, 2024 2:0 1pm Diarrhea August 18, 2024 8:0 8am 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 August 18, 2024 8:08am Esophageal cancer August 18, 2024 8:0 8am Metastasis to liver August 18, 2024 8:0 8am Pancreatic cancer August 18, 2024 8:0 8am Regional lymph node metastasis present [facility] 2024 8:08am Malignant cachexia August 18, 2024 8:0 8am 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 August 24, 2024 1:30pm Esophageal cancer August 24, 2024 1:3 0pm Metastasis to liver August 24, 2024 1:3 0pm Pancreatic cancer August 24, 2024 1:3 0pm Regional lymph node metastasis present [facility] 2024 1:30pm Malignant cachexia August 24, 2024 1:3 0pm Encounter for chemotherapy management Ap [facility] 2024 7:43am 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 September 01, 2024 7:43am Esophageal cancer September 01, 2024 7:43 am Metastasis to liver September 01, 2024 7:43 am Pancreatic cancer September 01, 2024 7:43 am Regional lymph node metastasis present A pril 2024 7:43am Malignant cachexia September 01, 2024 7:43 am Encounter for antineoplastic immunothera py September 15, 2024 8:07am Encounter for chemotherapy management Ap ril 2024 8:07am 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 September 15, 2024 8:07am Esophageal cancer September 15, 2024 8:0 7am Metastasis to liver September 15, 2024 8:0 7am Pancreatic cancer September 15, 2024 8:0 7am Regional lymph node metastasis present A pril 2024 8:07am Malignant cachexia September 15, 2024 8:0 7am 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 September 29, 2024 8:36am Esophageal cancer September 29, 2024 8:36am Metastasis to liver September 29, 2024 8:36am Pancreatic cancer September 29, 2024 8:36am Regional lymph node metastasis present M 2024 8:36am Malignant cachexia September 29, 2024 8:36am 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 October 13, 2024 8:36am Esophageal cancer October 13, 2024 8:36a m Metastasis to liver October 13, 2024 8:36a m Pancreatic cancer October 13, 2024 8:36a m Regional lymph node metastasis present M 2024 8:36am 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 October 27, 2024 8:33am Esophageal cancer October 27, 2024 8:33a m Metastasis to liver October 27, 2024 8:33a m Pancreatic cancer October 27, 2024 8:33a m Regional lymph node metastasis present [facility] 2024 8:33am Chief Complaint Admit Date Amb Documentation July 14, 2024 4:31pm MET PANCREAS AND ESOPHAGEAL CA July 20, 2024 9:05am CHEMO ED July 27, 2024 2:45 pm PORT PLACEMENT July 28, 2024 10:0 2am 1WK LABS NEW START August 04, 2024 8:0 0am TOX CHECK - LABS August 11, 2024 2:0 1pm 2 WKS - LABS - FOLFOX/NIVO August 18, 2 025 8:08am TOX CHECK - LABS August 24, 2024 1:3 0pm 2 WKS - LABS - FOLFOX September 01, 2024 7: 43am 2 WKS - LABS - FOLFOX/NIVO September 15 025 8:07am 2WKS LABS FOLFOX/NIVO September 29, 2024 8:36 am 2 WKS - LABS - FOLFOX/NIVO October 13 8:36am IV & PO October 21, 2024 8:02a m 2 WKS - LABS - FOLFOX/NIVO -REVIEW SCANS October 27, 2024 8:33am 2 WKS - LABS - FOLFOX/NIVO November 11 8:30am 1WK LABS NEW START November 11, 2024 8:45 am Reason for Visit Admit Date 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 July 20, 2024 9:05am Esophageal cancer July 20, 2024 9:05am Iron deficiency anemia due to chronic bl ood loss July 20, 2024 9:05am Metastasis to liver July 20, 2024 9:05am Pancreatic cancer July 20, 2024 9:05am Regional lymph node metastasis present F ebruary 2024 9:05am Malignant cachexia July 20, 2024 9:05am 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 July 27, 2024 2:45pm Esophageal cancer July 27, 2024 2:45 pm Metastasis to liver July 27, 2024 2:45 pm Pancreatic cancer July 27, 2024 2:45 pm Regional lymph node metastasis present [facility] 2024 2:45pm Encounter for education July 27, 2024 2:45pm Malignant cachexia July 27, 2024 2:45 pm Malignant cachexia July 28, 2024 10:0 2am Metastasis to liver July 30, 2024 10:2 9am 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 August 04, 2024 8:00am Esophageal cancer August 04, 2024 8:0 0am Metastasis to liver August 04, 2024 8:0 0am Pancreatic cancer August 04, 2024 8:0 0am Regional lymph node metastasis present M [facility] 2024 8:00am Malignant cachexia August 04, 2024 8:0 0am 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 August 11, 2024 2:01pm Esophageal cancer August 11, 2024 2:0 1pm Metastasis to liver August 11, 2024 2:0 1pm Pancreatic cancer August 11, 2024 2:0 1pm Regional lymph node metastasis present M [facility] 2024 2:01pm Malignant cachexia August 11, 2024 2:0 1pm Diarrhea August 18, 2024 8:0 8am 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 August 18, 2024 8:08am Esophageal cancer August 18, 2024 8:0 8am Metastasis to liver August 18, 2024 8:0 8am Pancreatic cancer August 18, 2024 8:0 8am Regional lymph node metastasis present M [facility] 2024 8:08am Malignant cachexia August 18, 2024 8:0 8am 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 August 24, 2024 1:30pm Esophageal cancer August 24, 2024 1:3 0pm Metastasis to liver August 24, 2024 1:3 0pm Pancreatic cancer August 24, 2024 1:3 0pm Regional lymph node metastasis present M arch 2024 1:30pm Malignant cachexia August 24, 2024 1:3 0pm Encounter for chemotherapy management Ap ril 2024 7:43am 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 September 01, 2024 7:43am Esophageal cancer September 01, 2024 7:43 am Metastasis to liver September 01, 2024 7:43 am Pancreatic cancer September 01, 2024 7:43 am Regional lymph node metastasis present A pril 2024 7:43am Malignant cachexia September 01, 2024 7:43 am Encounter for antineoplastic immunothera py September 15, 2024 8:07am Encounter for chemotherapy management Ap ril 2024 8:07am 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 September 15, 2024 8:07am Esophageal cancer September 15, 2024 8:0 7am Metastasis to liver September 15, 2024 8:0 7am Pancreatic cancer September 15, 2024 8:0 7am Regional lymph node metastasis present A pril 2024 8:07am Malignant cachexia September 15, 2024 8:0 7am 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 September 29, 2024 8:36am Esophageal cancer September 29, 2024 8:36am Metastasis to liver September 29, 2024 8:36am Pancreatic cancer September 29, 2024 8:36am Regional lymph node metastasis present M 2024 8:36am Malignant cachexia September 29, 2024 8:36am 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 October 13, 2024 8:36am Esophageal cancer October 13, 2024 8:36a m Metastasis to liver October 13, 2024 8:36a m Pancreatic cancer October 13, 2024 8:36a m Regional lymph node metastasis present M ay 2024 8:36am 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 October 27, 2024 8:33am Esophageal cancer October 27, 2024 8:33a m Metastasis to liver October 27, 2024 8:33a m Pancreatic cancer October 27, 2024 8:33a m Regional lymph node metastasis present J une 2024 8:33am Encounter for antineoplastic immunothera py November 11, 2024 8:30am Encounter for chemotherapy management Ju ne 2024 8:30am 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 November 11, 2024 8:30am Esophageal cancer November 11, 2024 8:30 am Metastasis to liver November 11, 2024 8:30 am Pancreatic cancer November 11, 2024 8:30 am Regional lymph node metastasis present J une 2024 8:30am Chief Complaint Admit Date CHEMO ED July 27, 2024 2:45 pm PORT PLACEMENT July 28, 2024 10:0 2am 1WK LABS NEW START August 04, 2024 8:0 0am TOX CHECK - LABS August 11, 2024 2:0 1pm 2 WKS - LABS - FOLFOX/NIVO August 18 025 8:08am TOX CHECK - LABS August 24, 2024 1:3 0pm 2 WKS - LABS - FOLFOX September 01, 2024 7: 43am 2 WKS - LABS - FOLFOX/NIVO September 15 025 8:07am 2WKS LABS FOLFOX/NIVO September 29, 2024 8:36 am 2 WKS - LABS - FOLFOX/NIVO October 13 8:36am IV & PO October 21, 2024 8:02a m 2 WKS - LABS - FOLFOX/NIVO -REVIEW SCANS October 27, 2024 8:33am 2 WKS - LABS - FOLFOX/NIVO November 11 8:30am 2 WKS - LABS - FOLFOX/NIVO November 24 8:32am 1WK LABS NEW START November 24, 2024 8:45a m Reason for Visit Admit Date 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 July 27, 2024 2:45pm Esophageal cancer July 27, 2024 2:45 pm Metastasis to liver July 27, 2024 2:45 pm Pancreatic cancer July 27, 2024 2:45 pm Regional lymph node metastasis present [facility] 2024 2:45pm Encounter for education July 27, 2024 2:45pm Malignant cachexia July 27, 2024 2:45 pm Malignant cachexia July 28, 2024 10:0 2am Metastasis to liver July 30, 2024 10:2 9am 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 August 04, 2024 8:00am Esophageal cancer August 04, 2024 8:0 0am Metastasis to liver August 04, 2024 8:0 0am Pancreatic cancer August 04, 2024 8:0 0am Regional lymph node metastasis present [facility] 2024 8:00am Malignant cachexia August 04, 2024 8:0 0am 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 August 11, 2024 2:01pm Esophageal cancer August 11, 2024 2:0 1pm Metastasis to liver August 11, 2024 2:0 1pm Pancreatic cancer August 11, 2024 2:0 1pm Regional lymph node metastasis present [facility] 2024 2:01pm Malignant cachexia August 11, 2024 2:0 1pm Diarrhea August 18, 2024 8:0 8am 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 August 18, 2024 8:08am Esophageal cancer August 18, 2024 8:0 8am Metastasis to liver August 18, 2024 8:0 8am Pancreatic cancer August 18, 2024 8:0 8am Regional lymph node metastasis present [facility] 2024 8:08am Malignant cachexia August 18, 2024 8:0 8am 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 August 24, 2024 1:30pm Esophageal cancer August 24, 2024 1:3 0pm Metastasis to liver August 24, 2024 1:3 0pm Pancreatic cancer August 24, 2024 1:3 0pm Regional lymph node metastasis present [facility] 2024 1:30pm Malignant cachexia August 24, 2024 1:3 0pm Encounter for chemotherapy management Ap ril 2024 7:43am 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 September 01, 2024 7:43am Esophageal cancer September 01, 2024 7:43 am Metastasis to liver September 01, 2024 7:43 am Pancreatic cancer September 01, 2024 7:43 am Regional lymph node metastasis present A pril 2024 7:43am Malignant cachexia September 01, 2024 7:43 am Encounter for antineoplastic immunothera py September 15, 2024 8:07am Encounter for chemotherapy management Ap ril 2024 8:07am 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 September 15, 2024 8:07am Esophageal cancer September 15, 2024 8:0 7am Metastasis to liver September 15, 2024 8:0 7am Pancreatic cancer September 15, 2024 8:0 7am Regional lymph node metastasis present A pril 2024 8:07am Malignant cachexia September 15, 2024 8:0 7am 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 September 29, 2024 8:36am Esophageal cancer September 29, 2024 8:36am Metastasis to liver September 29, 2024 8:36am Pancreatic cancer September 29, 2024 8:36am Regional lymph node metastasis present M ay 2024 8:36am Malignant cachexia September 29, 2024 8:36am 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 October 13, 2024 8:36am Esophageal cancer October 13, 2024 8:36a m Metastasis to liver October 13, 2024 8:36a m Pancreatic cancer October 13, 2024 8:36a m Regional lymph node metastasis present M ay 2024 8:36am 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 October 27, 2024 8:33am Esophageal cancer October 27, 2024 8:33a m Metastasis to liver October 27, 2024 8:33a m Pancreatic cancer October 27, 2024 8:33a m Regional lymph node metastasis present J une 2024 8:33am Encounter for antineoplastic immunothera py November 11, 2024 8:30am Encounter for chemotherapy management Ju ne 2024 8:30am 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 November 11, 2024 8:30am Esophageal cancer November 11, 2024 8:30 am Metastasis to liver November 11, 2024 8:30 am Pancreatic cancer November 11, 2024 8:30 am Regional lymph node metastasis present J une 2024 8:30am 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 November 24, 2024 8:32am Esophageal cancer November 24, 2024 8:32a m Metastasis to liver November 24, 2024 8:32a m Pancreatic cancer November 24, 2024 8:32a m Regional lymph node metastasis present J c[facility] 2024 8:32am Chief Complaint Admit Date TOX CHECK - LABS August 11, 2024 2:0 1pm 2 WKS - LABS - FOLFOX/NIVO August 18 025 8:08am TOX CHECK - LABS August 24, 2024 1:3 0pm 2 WKS - LABS - FOLFOX September 01, 2024 7: 43am 2 WKS - LABS - FOLFOX/NIVO September 15 8:07am 2WKS LABS FOLFOX/NIVO September 29, 2024 8:36 am 2 WKS - LABS - FOLFOX/NIVO October 13 8:36am IV & PO October 21, 2024 8:02a m 2 WKS - LABS - FOLFOX/NIVO -REVIEW SCANS October 27, 2024 8:33am 2 WKS - LABS - FOLFOX/NIVO November 11 8:30am 2 WKS - LABS - FOLFOX/NIVO November 24 8:32am 2 WKS - LABS - FOLFOX/NIVO December 08 8:34am 1WK LABS NEW START December 08, 2024 8:45 am Reason for Visit Admit Date 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 August 11, 2024 2:01pm Esophageal cancer August 11, 2024 2:0 1pm Metastasis to liver August 11, 2024 2:0 1pm Pancreatic cancer August 11, 2024 2:0 1pm Regional lymph node metastasis present [facility] 2024 2:01pm Malignant cachexia August 11, 2024 2:0 1pm Diarrhea August 18, 2024 8:0 8am 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 August 18, 2024 8:08am Esophageal cancer August 18, 2024 8:0 8am Metastasis to liver August 18, 2024 8:0 8am Pancreatic cancer August 18, 2024 8:0 8am Regional lymph node metastasis present [facility] 2024 8:08am Malignant cachexia August 18, 2024 8:0 8am 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 August 24, 2024 1:30pm Esophageal cancer August 24, 2024 1:3 0pm Metastasis to liver August 24, 2024 1:3 0pm Pancreatic cancer August 24, 2024 1:3 0pm Regional lymph node metastasis present M arch 2024 1:30pm Malignant cachexia August 24, 2024 1:3 0pm Encounter for chemotherapy management Ap ril 2024 7:43am 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 September 01, 2024 7:43am Esophageal cancer September 01, 2024 7:43 am Metastasis to liver September 01, 2024 7:43 am Pancreatic cancer September 01, 2024 7:43 am Regional lymph node metastasis present A pril 2024 7:43am Malignant cachexia September 01, 2024 7:43 am Encounter for antineoplastic immunothera py September 15, 2024 8:07am Encounter for chemotherapy management Ap ril 2024 8:07am 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 September 15, 2024 8:07am Esophageal cancer September 15, 2024 8:0 7am Metastasis to liver September 15, 2024 8:0 7am Pancreatic cancer September 15, 2024 8:0 7am Regional lymph node metastasis present A pril 2024 8:07am Malignant cachexia September 15, 2024 8:0 7am 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 September 29, 2024 8:36am Esophageal cancer September 29, 2024 8:36am Metastasis to liver September 29, 2024 8:36am Pancreatic cancer September 29, 2024 8:36am Regional lymph node metastasis present M ay 2024 8:36am Malignant cachexia September 29, 2024 8:36am 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 October 13, 2024 8:36am Esophageal cancer October 13, 2024 8:36a m Metastasis to liver October 13, 2024 8:36a m Pancreatic cancer October 13, 2024 8:36a m Regional lymph node metastasis present M ay 2024 8:36am 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 October 27, 2024 8:33am Esophageal cancer October 27, 2024 8:33a m Metastasis to liver October 27, 2024 8:33a m Pancreatic cancer October 27, 2024 8:33a m Regional lymph node metastasis present J une 2024 8:33am Encounter for antineoplastic immunothera py November 11, 2024 8:30am Encounter for chemotherapy management Ju ne 2024 8:30am 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 November 11, 2024 8:30am Esophageal cancer November 11, 2024 8:30 am Metastasis to liver November 11, 2024 8:30 am Pancreatic cancer November 11, 2024 8:30 am Regional lymph node metastasis present [facility] 2024 8:30am 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 November 24, 2024 8:32am Esophageal cancer November 24, 2024 8:32a m Metastasis to liver November 24, 2024 8:32a m Pancreatic cancer November 24, 2024 8:32a m Regional lymph node metastasis present J cayetano 2024 8:32am 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 December 08, 2024 8:34am Esophageal cancer December 08, 2024 8:34 am Metastasis to liver December 08, 2024 8:34 am Pancreatic cancer December 08, 2024 8:34 am Regional lymph node metastasis present J cayetano 2024 8:34am Chief Complaint Admit Date TOX CHECK - LABS August 24, 2024 1:3 0pm 2 WKS - LABS - FOLFOX September 01, 2024 7: 43am 2 WKS - LABS - FOLFOX/NIVO September 15 025 8:07am 2WKS LABS FOLFOX/NIVO September 29, 2024 8:36 am 2 WKS - LABS - FOLFOX/NIVO October 13 8:36am IV & PO October 21, 2024 8:02a m 2 WKS - LABS - FOLFOX/NIVO -REVIEW SCANS October 27, 2024 8:33am 2 WKS - LABS - FOLFOX/NIVO November 11 8:30am 2 WKS - LABS - FOLFOX/NIVO November 24 8:32am 2 WKS - LABS - FOLFOX/NIVO December 08 8:34am 2 WKS - LABS - FOLFOX/NIVO December 22 8:31am 1WK LABS NEW START December 22, 2024 8:45 am Reason for Visit Admit Date 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 August 24, 2024 1:30pm Esophageal cancer August 24, 2024 1:3 0pm Metastasis to liver August 24, 2024 1:3 0pm Pancreatic cancer August 24, 2024 1:3 0pm Regional lymph node metastasis present M [facility] 2024 1:30pm Malignant cachexia August 24, 2024 1:3 0pm Encounter for chemotherapy management Ap ril 2024 7:43am 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 September 01, 2024 7:43am Esophageal cancer September 01, 2024 7:43 am Metastasis to liver September 01, 2024 7:43 am Pancreatic cancer September 01, 2024 7:43 am Regional lymph node metastasis present A pril 2024 7:43am Malignant cachexia September 01, 2024 7:43 am Encounter for antineoplastic immunothera py September 15, 2024 8:07am Encounter for chemotherapy management Ap ril 2024 8:07am 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 September 15, 2024 8:07am Esophageal cancer September 15, 2024 8:0 7am Metastasis to liver September 15, 2024 8:0 7am Pancreatic cancer September 15, 2024 8:0 7am Regional lymph node metastasis present A pril 2024 8:07am Malignant cachexia September 15, 2024 8:0 7am 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 September 29, 2024 8:36am Esophageal cancer September 29, 2024 8:36am Metastasis to liver September 29, 2024 8:36am Pancreatic cancer September 29, 2024 8:36am Regional lymph node metastasis present M ay 2024 8:36am Malignant cachexia September 29, 2024 8:36am 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 October 13, 2024 8:36am Esophageal cancer October 13, 2024 8:36a m Metastasis to liver October 13, 2024 8:36a m Pancreatic cancer October 13, 2024 8:36a m Regional lymph node metastasis present M ay 2024 8:36am 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 October 27, 2024 8:33am Esophageal cancer October 27, 2024 8:33a m Metastasis to liver October 27, 2024 8:33a m Pancreatic cancer October 27, 2024 8:33a m Regional lymph node metastasis present J une 2024 8:33am Encounter for antineoplastic immunothera py November 11, 2024 8:30am Encounter for chemotherapy management Ju ne 2024 8:30am 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 November 11, 2024 8:30am Esophageal cancer November 11, 2024 8:30 am Metastasis to liver November 11, 2024 8:30 am Pancreatic cancer November 11, 2024 8:30 am Regional lymph node metastasis present J [facility] 2024 8:30am 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 November 24, 2024 8:32am Esophageal cancer November 24, 2024 8:32a m Metastasis to liver November 24, 2024 8:32a m Pancreatic cancer November 24, 2024 8:32a m Regional lymph node metastasis present J c[facility]ano 2024 8:32am 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 December 08, 2024 8:34am Esophageal cancer December 08, 2024 8:34 am Metastasis to liver December 08, 2024 8:34 am Pancreatic cancer December 08, 2024 8:34 am Regional lymph node metastasis present J [facility] 2024 8:34am 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 December 22, 2024 8:31am Esophageal cancer December 22, 2024 8:31 am Metastasis to liver December 22, 2024 8:31 am Pancreatic cancer December 22, 2024 8:31 am Regional lymph node metastasis present J [facility] 2024 8:31am Chief Complaint Admit Date 2 WKS - LABS - FOLFOX/NIVO September 15 8:07am 2WKS LABS FOLFOX/NIVO September 29, 2024 8:36 am 2 WKS - LABS - FOLFOX/NIVO October 13 8:36am IV & PO October 21, 2024 8:02a m 2 WKS - LABS - FOLFOX/NIVO -REVIEW SCANS October 27, 2024 8:33am 2 WKS - LABS - FOLFOX/NIVO November 11 8:30am 2 WKS - LABS - FOLFOX/NIVO November 24 8:32am 2 WKS - LABS - FOLFOX/NIVO December 08 8:34am 2 WKS - LABS - FOLFOX/NIVO December 22 8:31am 2 WKS - LABS - FOLFOX/NIVO January 05, 2025 8:22am 1WK LABS NEW START January 05, 2025 8: 45am Reason for Visit Admit Date Encounter for antineoplastic immunothera py September 15, 2024 8:07am Encounter for chemotherapy management Ap ril 2024 8:07am 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 September 15, 2024 8:07am Esophageal cancer September 15, 2024 8:0 7am Metastasis to liver September 15, 2024 8:0 7am Pancreatic cancer September 15, 2024 8:0 7am Regional lymph node metastasis present A pril 2024 8:07am Malignant cachexia September 15, 2024 8:0 7am 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 September 29, 2024 8:36am Esophageal cancer September 29, 2024 8:36am Metastasis to liver September 29, 2024 8:36am Pancreatic cancer September 29, 2024 8:36am Regional lymph node metastasis present M ay 2024 8:36am Malignant cachexia September 29, 2024 8:36am 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 October 13, 2024 8:36am Esophageal cancer October 13, 2024 8:36a m Metastasis to liver October 13, 2024 8:36a m Pancreatic cancer October 13, 2024 8:36a m Regional lymph node metastasis present M ay 2024 8:36am 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 October 27, 2024 8:33am Esophageal cancer October 27, 2024 8:33a m Metastasis to liver October 27, 2024 8:33a m Pancreatic cancer October 27, 2024 8:33a m Regional lymph node metastasis present [facility] 2024 8:33am Encounter for antineoplastic immunothera py November 11, 2024 8:30am Encounter for chemotherapy management [facility] 2024 8:30am 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 November 11, 2024 8:30am Esophageal cancer November 11, 2024 8:30 am Metastasis to liver November 11, 2024 8:30 am Pancreatic cancer November 11, 2024 8:30 am Regional lymph node metastasis present J [facility] 2024 8:30am 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 November 24, 2024 8:32am Esophageal cancer November 24, 2024 8:32a m Metastasis to liver November 24, 2024 8:32a m Pancreatic cancer November 24, 2024 8:32a m Regional lymph node metastasis present J [facility] 2024 8:32am 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 December 08, 2024 8:34am Esophageal cancer December 08, 2024 8:34 am Metastasis to liver December 08, 2024 8:34 am Pancreatic cancer December 08, 2024 8:34 am Regional lymph node metastasis present J [facility] 2024 8:34am 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 December 22, 2024 8:31am Esophageal cancer December 22, 2024 8:31 am Metastasis to liver December 22, 2024 8:31 am Pancreatic cancer December 22, 2024 8:31 am Regional lymph node metastasis present J [facility] 2024 8:31am 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 January 05, 2025 8:22am Esophageal cancer January 05, 2025 8: 22am Metastasis to liver January 05, 2025 8: 22am Pancreatic cancer January 05, 2025 8: 22am Regional lymph node metastasis present A ugust 2024 8:22am Chief Complaint Admit Date 2WKS LABS FOLFOX/NIVO September 29, 2024 8:36 am 2 WKS - LABS - FOLFOX/NIVO October 13 8:36am IV & PO October 21, 2024 8:02a m 2 WKS - LABS - FOLFOX/NIVO -REVIEW SCANS October 27, 2024 8:33am 2 WKS - LABS - FOLFOX/NIVO November 11 8:30am 2 WKS - LABS - FOLFOX/NIVO November 24 8:32am 2 WKS - LABS - FOLFOX/NIVO December 08 8:34am 2 WKS - LABS - FOLFOX/NIVO December 22 8:31am 2 WKS - LABS - FOLFOX/NIVO January 05, 2025 8:22am Malignant neoplasm of body of pancreas A ugust 2024 12:39pm 2 WKS - LABS - FOLFOX/NIVO - REVIEW SCAN S January 19, 2025 8:32am 1WK LABS NEW START January 19, 2025 8: 45am Reason for Visit Admit Date 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 September 29, 2024 8:36am Esophageal cancer September 29, 2024 8:36am Metastasis to liver September 29, 2024 8:36am Pancreatic cancer September 29, 2024 8:36am Regional lymph node metastasis present M ay 2024 8:36am Malignant cachexia September 29, 2024 8:36am 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 October 13, 2024 8:36am Esophageal cancer October 13, 2024 8:36a m Metastasis to liver October 13, 2024 8:36a m Pancreatic cancer October 13, 2024 8:36a m Regional lymph node metastasis present M 2024 8:36am 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 October 27, 2024 8:33am Esophageal cancer October 27, 2024 8:33a m Metastasis to liver October 27, 2024 8:33a m Pancreatic cancer October 27, 2024 8:33a m Regional lymph node metastasis present J une 2024 8:33am Encounter for antineoplastic immunothera py November 11, 2024 8:30am Encounter for chemotherapy management Ju ut 2024 8:30am 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 November 11, 2024 8:30am Esophageal cancer November 11, 2024 8:30 am Metastasis to liver November 11, 2024 8:30 am Pancreatic cancer November 11, 2024 8:30 am Regional lymph node metastasis present [facility] 2024 8:30am 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 November 24, 2024 8:32am Esophageal cancer November 24, 2024 8:32a m Metastasis to liver November 24, 2024 8:32a m Pancreatic cancer November 24, 2024 8:32a m Regional lymph node metastasis present J [facility] 2024 8:32am 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 December 08, 2024 8:34am Esophageal cancer December 08, 2024 8:34 am Metastasis to liver December 08, 2024 8:34 am Pancreatic cancer December 08, 2024 8:34 am Regional lymph node metastasis present J cayetano 2024 8:34am 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 December 22, 2024 8:31am Esophageal cancer December 22, 2024 8:31 am Metastasis to liver December 22, 2024 8:31 am Pancreatic cancer December 22, 2024 8:31 am Regional lymph node metastasis present J cayetano 2024 8:31am 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 January 05, 2025 8:22am Esophageal cancer January 05, 2025 8: 22am Metastasis to liver January 05, 2025 8: 22am Pancreatic cancer January 05, 2025 8: 22am Regional lymph node metastasis present A ugust 2024 8:22am 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 January 19, 2025 8:32am Esophageal cancer January 19, 2025 8: 32am Metastasis to liver January 19, 2025 8: 32am Pancreatic cancer January 19, 2025 8: 32am Regional lymph node metastasis present A ugust 2024 8:32am Chief Complaint Admit Date 2WKS LABS FOLFOX/NIVO September 29, 2024 8:36 am 2 WKS - LABS - FOLFOX/NIVO October 13 8:36am IV & PO October 21, 2024 8:02a m 2 WKS - LABS - FOLFOX/NIVO -REVIEW SCANS October 27, 2024 8:33am 2 WKS - LABS - FOLFOX/NIVO November 11 8:30am 2 WKS - LABS - FOLFOX/NIVO November 24 8:32am 2 WKS - LABS - FOLFOX/NIVO December 08 8:34am 2 WKS - LABS - FOLFOX/NIVO December 22 8:31am 2 WKS - LABS - FOLFOX/NIVO January 05, 2025 8:22am Malignant neoplasm of body of pancreas A ugust 2024 12:39pm 2 WKS - LABS - FOLFOX/NIVO - REVIEW SCAN S January 19, 2025 8:32am 1WK LABS NEW START January 21, 2025 1: 00pm Chief Complaint Admit Date 2 WKS - LABS - FOLFOX/NIVO October 13 8:36am IV & PO October 21, 2024 8:02a m 2 WKS - LABS - FOLFOX/NIVO -REVIEW SCANS October 27, 2024 8:33am 2 WKS - LABS - FOLFOX/NIVO November 11 8:30am 2 WKS - LABS - FOLFOX/NIVO November 24 8:32am 2 WKS - LABS - FOLFOX/NIVO December 08 8:34am 2 WKS - LABS - FOLFOX/NIVO December 22 8:31am 2 WKS - LABS - FOLFOX/NIVO January 05, 2025 8:22am Malignant neoplasm of body of pancreas A ugust 2024 12:39pm 2 WKS - LABS - FOLFOX/NIVO - REVIEW SCAN S January 19, 2025 8:32am 2 WKS - LABS - FOLFOX February 02 8:35am 1WK LABS NEW START February 02, 2025 8:45am Reason for Visit Admit Date 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 October 13, 2024 8:36am Esophageal cancer October 13, 2024 8:36a m Metastasis to liver October 13, 2024 8:36a m Pancreatic cancer October 13, 2024 8:36a m Regional lymph node metastasis present M ay 2024 8:36am 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 October 27, 2024 8:33am Esophageal cancer October 27, 2024 8:33a m Metastasis to liver October 27, 2024 8:33a m Pancreatic cancer October 27, 2024 8:33a m Regional lymph node metastasis present J une 2024 8:33am Encounter for antineoplastic immunothera py November 11, 2024 8:30am Encounter for chemotherapy management Ju ut 2024 8:30am 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 November 11, 2024 8:30am Esophageal cancer November 11, 2024 8:30 am Metastasis to liver November 11, 2024 8:30 am Pancreatic cancer November 11, 2024 8:30 am Regional lymph node metastasis present J une 2024 8:30am 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 November 24, 2024 8:32am Esophageal cancer November 24, 2024 8:32a m Metastasis to liver November 24, 2024 8:32a m Pancreatic cancer November 24, 2024 8:32a m Regional lymph node metastasis present J [facility] 2024 8:32am 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 December 08, 2024 8:34am Esophageal cancer December 08, 2024 8:34 am Metastasis to liver December 08, 2024 8:34 am Pancreatic cancer December 08, 2024 8:34 am Regional lymph node metastasis present J cayetano 2024 8:34am 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 December 22, 2024 8:31am Esophageal cancer December 22, 2024 8:31 am Metastasis to liver December 22, 2024 8:31 am Pancreatic cancer December 22, 2024 8:31 am Regional lymph node metastasis present J cayetano 2024 8:31am 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 January 05, 2025 8:22am Esophageal cancer January 05, 2025 8: 22am Metastasis to liver January 05, 2025 8: 22am Pancreatic cancer January 05, 2025 8: 22am Regional lymph node metastasis present A ugust 2024 8:22am 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 January 19, 2025 8:32am Esophageal cancer January 19, 2025 8: 32am Metastasis to liver January 19, 2025 8: 32am Pancreatic cancer January 19, 2025 8: 32am Regional lymph node metastasis present A ugust 2024 8:32am Encounter for antineoplastic immunothera py February 02, 2025 8:35am Encounter for chemotherapy management Se ptember 2024 8:35am 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 February 02, 2025 8:35am Esophageal cancer February 02, 2025 8:35am Metastasis to liver February 02, 2025 8:35am Pancreatic cancer February 02, 2025 8:35am Regional lymph node metastasis present S eptember 2024 8:35am Chief Complaint Admit Date 2 WKS - LABS - FOLFOX/NIVO October 13 8:36am IV & PO October 21, 2024 8:02a m 2 WKS - LABS - FOLFOX/NIVO -REVIEW SCANS October 27, 2024 8:33am 2 WKS - LABS - FOLFOX/NIVO November 11 8:30am 2 WKS - LABS - FOLFOX/NIVO November 24 8:32am 2 WKS - LABS - FOLFOX/NIVO December 08 8:34am 2 WKS - LABS - FOLFOX/NIVO December 22 8:31am 2 WKS - LABS - FOLFOX/NIVO January 05, 2025 8:22am Malignant neoplasm of body of pancreas A ugust 2024 12:39pm 2 WKS - LABS - FOLFOX/NIVO - REVIEW SCAN S January 19, 2025 8:32am 2 WKS - LABS - FOLFOX February 02 8:35am 1WK LABS NEW START February 10, 2025 7:15am ACUTE, LABS February 10, 2025 7:29am Chief Complaint Admit Date 2 WKS - LABS - FOLFOX/NIVO -REVIEW SCANS October 27, 2024 8:33am 2 WKS - LABS - FOLFOX/NIVO November 11 8:30am 2 WKS - LABS - FOLFOX/NIVO November 24 8:32am 2 WKS - LABS - FOLFOX/NIVO December 08 8:34am 2 WKS - LABS - FOLFOX/NIVO December 22 8:31am 2 WKS - LABS - FOLFOX/NIVO January 05, 2025 8:22am Malignant neoplasm of body of pancreas A ugust 2024 12:39pm 2 WKS - LABS - FOLFOX/NIVO - REVIEW SCAN S January 19, 2025 8:32am 2 WKS - LABS - FOLFOX February 02 8:35am ACUTE, LABS February 10, 2025 7:29am 2 WKS - LABS - FOLFOX February 16 8:28am 1WK LABS NEW START February 18, 2025 1:00pm Reason for Visit Admit Date 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 October 27, 2024 8:33am Esophageal cancer October 27, 2024 8:33a m Metastasis to liver October 27, 2024 8:33a m Pancreatic cancer October 27, 2024 8:33a m Regional lymph node metastasis present [facility] 2024 8:33am Encounter for antineoplastic immunothera py November 11, 2024 8:30am Encounter for chemotherapy management [facility] 2024 8:30am 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 November 11, 2024 8:30am Esophageal cancer November 11, 2024 8:30 am Metastasis to liver November 11, 2024 8:30 am Pancreatic cancer November 11, 2024 8:30 am Regional lymph node metastasis present J [facility] 2024 8:30am 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 November 24, 2024 8:32am Esophageal cancer November 24, 2024 8:32a m Metastasis to liver November 24, 2024 8:32a m Pancreatic cancer November 24, 2024 8:32a m Regional lymph node metastasis present J [facility] 2024 8:32am 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 December 08, 2024 8:34am Esophageal cancer December 08, 2024 8:34 am Metastasis to liver December 08, 2024 8:34 am Pancreatic cancer December 08, 2024 8:34 am Regional lymph node metastasis present J [facility] 2024 8:34am 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 December 22, 2024 8:31am Esophageal cancer December 22, 2024 8:31 am Metastasis to liver December 22, 2024 8:31 am Pancreatic cancer December 22, 2024 8:31 am Regional lymph node metastasis present J [facility] 2024 8:31am 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 January 05, 2025 8:22am Esophageal cancer January 05, 2025 8: 22am Metastasis to liver January 05, 2025 8: 22am Pancreatic cancer January 05, 2025 8: 22am Regional lymph node metastasis present A [facility] 2024 8:22am 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 January 19, 2025 8:32am Esophageal cancer January 19, 2025 8: 32am Metastasis to liver January 19, 2025 8: 32am Pancreatic cancer January 19, 2025 8: 32am Regional lymph node metastasis present A [facility] 2024 8:32am Encounter for antineoplastic immunothera py February 02, 2025 8:35am Encounter for chemotherapy management Se ptember 2024 8:35am 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 February 02, 2025 8:35am Esophageal cancer February 02, 2025 8:35am Metastasis to liver February 02, 2025 8:35am Pancreatic cancer February 02, 2025 8:35am Regional lymph node metastasis present S [facility] 2024 8:35am 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 February 10, 2025 7:29am Esophageal cancer February 10, 2025 7:29am Metastasis to liver February 10, 2025 7:29am Regional lymph node metastasis present S eptember 2024 7:29am 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 February 16, 2025 8:28am Esophageal cancer February 16, 2025 8:28am Metastasis to liver February 16, 2025 8:28am Regional lymph node metastasis present S [facility] 2024 8:28am Chief Complaint Admit Date 2 WKS - LABS - FOLFOX/NIVO November 11 8:30am 2 WKS - [facility] November 24 8:32am 2 WKS - [facility] Flaca 15th, 20 25 8:34am 2 WKS - [facility] - [facility] December 22 8:31am 2 WKS - [facility] January 05, 2025 8:22am Malignant neoplasm of body of pancreas A ugust 2024 12:39pm 2 WKS - [facility] - [facility] - REVIEW SCAN S January 19, 2025 8:32am 2 WKS - [facility] - [facility] February 02 8:35am ACUTE, LABS February 10, 2025 7:29am 2 WKS - [facility] - [facility] February 16 8:28am 2 WKS - [facility] March 02, 2025 8:33am 1WK [facility] March 02, 2025 8: 45am Reason for Visit Admit Date Encounter for antineoplastic immunothera py November 11, 2024 8:30am Encounter for chemotherapy management [facility] 2024 8:30am 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 November 11, 2024 8:30am Esophageal cancer November 11, 2024 8:30 am Metastasis to liver November 11, 2024 8:30 am Pancreatic cancer November 11, 2024 8:30 am Regional lymph node metastasis present [facility] 2024 8:30am 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 November 24, 2024 8:32am Esophageal cancer November 24, 2024 8:32a m Metastasis to liver November 24, 2024 8:32a m Pancreatic cancer November 24, 2024 8:32a m Regional lymph node metastasis present J [facility] 2024 8:32am 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 December 08, 2024 8:34am Esophageal cancer December 08, 2024 8:34 am Metastasis to liver December 08, 2024 8:34 am Pancreatic cancer December 08, 2024 8:34 am Regional lymph node metastasis present J [facility] 2024 8:34am 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 December 22, 2024 8:31am Esophageal cancer December 22, 2024 8:31 am Metastasis to liver December 22, 2024 8:31 am Pancreatic cancer December 22, 2024 8:31 am Regional lymph node metastasis present J [facility] 2024 8:31am 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 January 05, 2025 8:22am Esophageal cancer January 05, 2025 8: 22am Metastasis to liver January 05, 2025 8: 22am Pancreatic cancer January 05, 2025 8: 22am Regional lymph node metastasis present A ugust 2024 8:22am 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 January 19, 2025 8:32am Esophageal cancer January 19, 2025 8: 32am Metastasis to liver January 19, 2025 8: 32am Pancreatic cancer January 19, 2025 8: 32am Regional lymph node metastasis present A ugust 2024 8:32am Encounter for antineoplastic immunothera py February 02, 2025 8:35am Encounter for chemotherapy management Se ptember 2024 8:35am 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 February 02, 2025 8:35am Esophageal cancer February 02, 2025 8:35am Metastasis to liver February 02, 2025 8:35am Pancreatic cancer February 02, 2025 8:35am Regional lymph node metastasis present S eptember 2024 8:35am 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 February 10, 2025 7:29am Esophageal cancer February 10, 2025 7:29am Metastasis to liver February 10, 2025 7:29am Regional lymph node metastasis present S eptember 2024 7:29am 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 February 16, 2025 8:28am Esophageal cancer February 16, 2025 8:28am Metastasis to liver February 16, 2025 8:28am Regional lymph node metastasis present S eptember 2024 8:28am 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 March 02, 2025 8:33am Esophageal cancer March 02, 2025 8: 33am Metastasis to liver March 02, 2025 8: 33am Regional lymph node metastasis present O ctober 2024 8:33am Chief Complaint Admit Date 2 WKS - [facility] - [facility] November 24 8:32am 2 WKS - [facility] - [facility] December 08 8:34am 2 WKS - [facility] - [facility] December 22 8:31am 2 WKS - [facility] - [facility] January 05, 2025 8:22am Malignant neoplasm of body of pancreas A ugust 2024 12:39pm 2 WKS - [facility] - [facility] - REVIEW SCAN S January 19, 2025 8:32am 2 WKS - LAB[facility] - [facility] February 02 8:35am ACUTE, LABS February 10, 2025 7:29am 2 WKS - LABS - [facility] February 16 8:28am 2 WKS - [facility] - [facility] March 02, 2025 8:33am 1 WK - LABS = [facility] March 09, 2025 8:33am 1WK [facility] March 11, 2025 1 1:30am Reason for Visit Admit Date 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 November 24, 2024 8:32am Esophageal cancer November 24, 2024 8:32a m Metastasis to liver November 24, 2024 8:32a m Pancreatic cancer November 24, 2024 8:32a m Regional lymph node metastasis present J [email or web address] 8:32am 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 December 08, 2024 8:34am Esophageal cancer December 08, 2024 8:34 am Metastasis to liver December 08, 2024 8:34 am Pancreatic cancer December 08, 2024 8:34 am Regional lymph node metastasis present J [facility] 2024 8:34am 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 December 22, 2024 8:31am Esophageal cancer December 22, 2024 8:31 am Metastasis to liver December 22, 2024 8:31 am Pancreatic cancer December 22, 2024 8:31 am Regional lymph node metastasis present J [facility] 2024 8:31am 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 January 05, 2025 8:22am Esophageal cancer January 05, 2025 8: 22am Metastasis to liver January 05, 2025 8: 22am Pancreatic cancer January 05, 2025 8: 22am Regional lymph node metastasis present A ugust 2024 8:22am 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 January 19, 2025 8:32am Esophageal cancer January 19, 2025 8: 32am Metastasis to liver January 19, 2025 8: 32am Pancreatic cancer January 19, 2025 8: 32am Regional lymph node metastasis present A ugust 2024 8:32am Encounter for antineoplastic immunothera py February 02, 2025 8:35am Encounter for chemotherapy management Se ptember 2024 8:35am 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 February 02, 2025 8:35am Esophageal cancer February 02, 2025 8:35am Metastasis to liver February 02, 2025 8:35am Pancreatic cancer February 02, 2025 8:35am Regional lymph node metastasis present S epteer 2024 8:35am 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 February 10, 2025 7:29am Esophageal cancer February 10, 2025 7:29am Metastasis to liver February 10, 2025 7:29am Regional lymph node metastasis present S eptember 2024 7:29am 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 February 16, 2025 8:28am Esophageal cancer February 16, 2025 8:28am Metastasis to liver February 16, 2025 8:28am Regional lymph node metastasis present S epteer 2024 8:28am Drug induced neutropenia March 02 8:33am Encounter for antineoplastic immunothera py March 02, 2025 8:33am Encounter for chemotherapy management [email or web address] 8:33am Neuropathy March 02, 2025 8: 33am 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 March 02, 2025 8:33am Esophageal cancer March 02, 2025 8: 33am Metastasis to liver March 02, 2025 8: 33am Regional lymph node metastasis present O ctober 2024 8:33am 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 March 09, 2025 8:33am Esophageal cancer March 09, 2025 8 :33am Metastasis to liver March 09, 2025 8 :33am Regional lymph node metastasis present O ctober 2024 8:33am Advance Directives No Advanced Directives Records Found Advance Directive Response Recorded Date/ Time Living Will No January 25 11:42am Power of Level Glass Forming Machine Operator No January 25, 2021 11:42am Advance Directive Response Recorded Date/ Time Living Will No March 11 4:46am Power of Level Glass Forming Machine Operator No March 11, 2023 4:46am Advance Directive Response Recorded Date/ Time Living Will No March 11 3:46am Power of Level Glass Forming Machine Operator No March 11, 2023 3:46am Advance Directive Response Recorded Date/ Time Living Will No July 28, 2024 8:43am Power of Level Glass Forming Machine Operator No July 28 8:43am Advance Directive Response Recorded Date/ Time Living Will No October 01, 2024 2: 00pm Do you have a Healthcare Power of Level Glass Forming Machine Operator? No October 01, 2024 2:00pm Advance Directives No October 01, 2024 2:00pm Living Will No July 28, 2024 9:43am Do you have a Healthcare Power of Level Glass Forming Machine Operator? No July 28, 2024 9:43am Advance Directive Response Recorded Date/ Time Living Will No October 15, 2024 2 :09pm Do you have a Healthcare Power of Level Glass Forming Machine Operator? No October 15, 2024 2:09pm Advance Directives No October 15 2:09pm Living Will No July 28, 2024 9:43am Do you have a Healthcare Power of Level Glass Forming Machine Operator? No July 28, 2024 9:43am Advance Directive Response Recorded Date/ Time Living Will No October 29, 2024 1 :25pm Do you have a Healthcare Power of Level Glass Forming Machine Operator? No October 29, 2024 1:25pm Advance Directives No October 29 1:25pm Living Will No July 28, 2024 9:43am Do you have a Healthcare Power of Level Glass Forming Machine Operator? No July 28, 2024 9:43am Advance Directive Response Recorded Date/ Time Living Will No November 13, 2024 12:41pm Do you have a Healthcare Power of Level Glass Forming Machine Operator? No November 13, 2024 12:41pm Advance Directives No November 13 12:41pm Living Will No July 28, 2024 9:43am Do you have a Healthcare Power of Level Glass Forming Machine Operator? No July 28, 2024 9:43am Advance Directive Response Recorded Date/ Time Living Will No December 08, 2024 9:13am Do you have a Healthcare Power of Level Glass Forming Machine Operator? No December 08, 2024 9:13am Advance Directives No December 08 9:13am Advance Directive Response Recorded Date/ Time Living Will No December 10, 2024 1:52pm Do you have a Healthcare Power of Level Glass Forming Machine Operator? No December 10, 2024 1:52pm Advance Directives No December 10 1:52pm Advance Directive Response Recorded Date/ Time Living Will No December 24, 2024 1:26pm Do you have a Healthcare Power of Level Glass Forming Machine Operator? No December 24, 2024 1:26pm Advance Directives No December 24 1:26pm Advance Directive Response Recorded Date/ Time Living Will No January 07 1:40pm Do you have a Healthcare Power of Level Glass Forming Machine Operator? No January 07, 2025 1:40pm Advance Directives No January 07, 2025 1:40pm Advance Directive Response Recorded Date/ Time Living Will No January 19 10:53am Do you have a Healthcare Power of Level Glass Forming Machine Operator? No January 19, 2025 10:53am Advance Directives No January 19, 2025 10:53am Advance Directive Response Recorded Date/ Time Living Will No February 02 11:01am Do you have a Healthcare Power of Level Glass Forming Machine Operator? No February 02, 2025 11:01am Advance Directives No January 11:01am Advance Directive Response Recorded Date/ Time Living Will No February 18, 2025 12:58pm Do you have a Healthcare Power of Level Glass Forming Machine Operator? No February 18, 2025 12:58pm Advance Directives No January 12:58pm Advance Directive Response Recorded Date/ Time Living Will No March 11 11:37am Do you have a Healthcare Power of Level Glass Forming Machine Operator? No March 11, 2025 11:37am Advance Directives No March 11, 2025 11:37am Summary Purpose Additional Source Comments Care Teams (unrecognized sec tion and content) Team Status: Active Member Role Status Dates [facility] Primary Care Provider Active Team Status: Active Member Role Status Dates [facility] Primary Care Provider Active Start: July 14, 2024 Sarah Mccartney Attending Provider Active Start: July 14, 2024 Team Status: Inactive Member Role Status Dates [facility] Primary Care Provider Active Start: July 20, 2024 End: July 20, 2024 [facility] Referring Provider Active Start: Shraddha domingo 2024 End: July 20, 2024 Dr. Zulay Celis MD Attending Provider Active Start: July 20, 2024 End: July 20, 2024 Team Status: Inactive Member Role Status Dates [facility] Primary Care Provider Active Start: July 27, 2024 End: July 27, 2024 [facility] Referring Provider Active Start: [facility] 2024 End: July 27, 2024 Laurie Vail TECHNICAL PHOTOGRAPHER, TECHNICAL PHOTOGRAPHER-C Attending Provider Active Start: July 27, 2024 End: July 27, 2024 Team Status: Inactive Member Role Status Dates [facility] Primary Care Provider Active Start: July 28, 2024 End: July 28, 2024 [facility] Referring Provider Active Start: [facility] 2024 End: July 28, 2024 Dr. Andrade Epstein MD Attending Provider Active Start: July 28, 2024 End: July 28, 2024 Team Status: Inactive Member Role Status Dates [facility] Primary Care Provider Active Start: July 30, 2024 End: July 30, 2024 Dr. Andrade Epstein MD Attending Provider Active Start: July 30, 2024 End: July 30, 2024 Team Status: Active Member Role Status Dates [facility] Primary Care Provider Active Start: July 30, 2024 Dr. Andrade Epstein MD Attending Provider Active Start: July 30, 2024 Dr. Andrade Epstein MD Referring Provider Active Start: July 30, 2024 Dr. Andrade Epstein MD Other Provider Active St art: July 30, 2024 Team Status: Inactive Member Role Status Dates [facility] Primary Care Provider Active Start: August 04, 2024 End: August 04, 2024 [facility] Referring Provider Active Start: [facility] 2024 End: August 04, 2024 Dr. Zulay Celis MD Attending Provider Active Start: August 04, 2024 End: August 04, 2024 Team Status: Inactive Member Role Status Dates [facility] Primary Care Provider Active Start: August 11, 2024 End: August 11, 2024 [facility] Referring Provider Active Start: [facility] 2024 End: August 11, 2024 Laurie Vail TECHNICAL PHOTOGRAPHER, TECHNICAL PHOTOGRAPHER-C Attending Provider Active Start: August 11, 2024 End: August 11, 2024 Team Status: Inactive Member Role Status Dates [facility] Primary Care Provider Active Start: August 18, 2024 End: August 18, 2024 [facility] Referring Provider Active Start: [facility] 2024 End: August 18, 2024 Laurie Vail TECHNICAL PHOTOGRAPHER, TECHNICAL PHOTOGRAPHER-C Attending Provider Active Start: August 18, 2024 End: August 18, 2024 Team Status: Inactive Member Role Status Dates [facility] Primary Care Provider Active Start: August 24, 2024 End: August 24, 2024 [facility] Referring Provider Active Start: [facility] 2024 End: August 24, 2024 Laurie Vail TECHNICAL PHOTOGRAPHER, TECHNICAL PHOTOGRAPHER-C Attending Provider Active Start: August 24, 2024 End: August 24, 2024 Team Status: Inactive Member Role Status Dates [facility] Primary Care Provider Active Start: September 01, 2024 End: September 01, 2024 [facility] Referring Provider Active Start: [facility] 2024 End: September 01, 2024 Lauriedbeby GarciaYared TECHNICAL PHOTOGRAPHER, TECHNICAL PHOTOGRAPHER-C Attending Provider Active Start: September 01, 2024 End: September 01, 2024 Team Status: Inactive Member Role Status Dates [facility] Primary Care Provider Active Start: September 15, 2024 End: September 15, 2024 [facility] Referring Provider Active Start: [facility] 2024 End: September 15, 2024 Laurie Vail TECHNICAL PHOTOGRAPHER, TECHNICAL PHOTOGRAPHER-C Attending Provider Active Start: September 15, 2024 End: September 15, 2024 Team Status: Inactive Member Role Status Dates [facility] Primary Care Provider Active Start: September 29, 2024 End: September 29, 2024 [facility] Referring Provider Active Start: Nasima ramsay 2024 End: September 29, 2024 Dr. Zulay Celis MD Attending Provider Active Start: September 29, 2024 End: September 29, 2024 Team Status: Inactive Member Role Status Dates [facility] Primary Care Provider Active Start: October 13, 2024 End: October 13, 2024 [facility] Referring Provider Active Start: Nasima ramsay 2024 End: October 13, 2024 Dr. Zulay Celis MD Attending Provider Active Start: October 13, 2024 End: October 13, 2024 Team Status: Active Member Role Status Dates [facility] Primary Care Provider Active Start: October 15, 2024 Dr. Zulay Celis MD Attending Provider Active Start: October 15, 2024 Dr. Zulay Celis MD Referring Provider Active Start: October 15, 2024 Team Status: Inactive Member Role Status Dates [facility] Primary Care Provider Active Start: October 21, 2024 End: October 21, 2024 Laurie Vail TECHNICAL PHOTOGRAPHER, TECHNICAL PHOTOGRAPHER-C Attending Provider Active Start: October 21, 2024 End: October 21, 2024 Laurie Vail TECHNICAL PHOTOGRAPHER, TECHNICAL PHOTOGRAPHER-C Referring Provider Active Start: October 21, 2024 End: October 21, 2024 Team Status: Active Member Role Status Dates Dr. Pilar Alvarado DO Family Provider Active [facility] Primary Care Provider Active Team Status: Inactive Member Role Status Dates [facility] Primary Care Provider Active RAMÍREZ BAKER Attending Provider, Referring Provider Ac tive Team Status: Inactive Member Role Status Dates [facility] Primary Care Provider Active Dr. Ramírez Baker MD Attending Provider, Referring Prov ider Active Team Status: Inactive Member Role Status Dates [facility] Primary Care Provider Active Dr. Jean Claude Howell DO Emergency Provider Active Team Status: Active Member Role Status Dates [facility] Primary Care Provider Active Dr. Ramírez Baker MD Referring Provider, Other Provider Active Dr. Luz Box MD Attending Provider Activ e Team Status: Inactive Member Role Status Dates [facility] Primary Care Provider Active Dr. Jean Claude Howell DO Attending Provider, Emergency Pr ovider Active Team Status: Inactive Member Role Status Dates [facility] Primary Care Provider Active Start: June 15, 2024 End: June 15, 2024 Dr. Jt Elmore MD Attending Provider Active Start: June 15, 2024 End: June 15, 2024 Dr. Jt Elmore MD Referring Provider Active Start: June 15, 2024 End: June 15, 2024 Team Status: Active Member Role Status Dates [facility] Primary Care Provider Active Start: July 20, 2024 Dr. Zulay Celis MD Attending Provider Active Start: July 20, 2024 Dr. Zulay Celis MD Referring Provider Active Start: July 20, 2024 Team Status: Active Member Role Status Dates [facility] Primary Care Provider Active Start: July 30, 2024 Dr. Andrade Epstein MD Attending Provider Active Start: July 30, 2024 Dr. Andrade Epstein MD Other Provider Active St art: July 30, 2024 First Helper Relationship Specialty Start Date End Date Physician, No Pcp PCP - General 09/18/24 Team Status: Active Member Role Status Dates [facility] Primary Care Provider Active Start: October 13, 2024 Dr. Zulay Celis MD Attending Provider Active Start: October 13, 2024 Dr. Zulay Celis MD Referring Provider Active Start: October 13, 2024 Team Status: Active Member Role Status Dates [facility] Primary Care Provider Active Start: October 27, 2024 Dr. Zulay Celis MD Attending Provider Active Start: October 27, 2024 Dr. Zulay Celis MD Referring Provider Active Start: October 27, 2024 Team Status: Inactive Member Role Status Dates [facility] Primary Care Provider Active Start: October 27, 2024 End: October 27, 2024 [facility] Referring Provider Active Start: 2024 End: October 27, 2024 Dr. Zualy Celis MD Attending Provider Active Start: October 27, 2024 End: October 27, 2024 Team Status: Inactive Member Role Status Dates [facility] Primary Care Provider Active Start: November 11, 2024 End: November 11, 2024 [facility] Referring Provider Active Start: [facility] 2024 End: November 11, 2024 Laurie Vail TECHNICAL PHOTOGRAPHER, TECHNICAL PHOTOGRAPHER-C Attending Provider Active Start: November 11, 2024 End: November 11, 2024 Team Status: Active Member Role Status Dates [facility] Primary Care Provider Active Start: November 11, 2024 Dr. Zulay Celis MD Attending Provider Active Start: November 11, 2024 Dr. Zulay Celis MD Referring Provider Active Start: November 11, 2024 Team Status: Active Member Role/Relationship Status Dates [facility] Primary Care Provider Active Team Status: Inactive Member Role/Relationship Status Dates [facility] Primary Care Provider Active Start: July 27, 2024 End: July 27, 2024 [facility] Referring Provider Active Start: [facility] 2024 End: July 27, 2024 Laurie Vail TECHNICAL PHOTOGRAPHER, TECHNICAL PHOTOGRAPHER-C Attending Provider Active Start: July 27, 2024 End: July 27, 2024 Team Status: Inactive Member Role/Relationship Status Dates [facility] Primary Care Provider Active Start: July 28, 2024 End: July 28, 2024 [facility] Referring Provider Active Start: [facility] 2024 End: July 28, 2024 Dr. Andrade Epstein MD Attending Provider Active Start: July 28, 2024 End: July 28, 2024 Team Status: Inactive Member Role/Relationship Status Dates [facility] Primary Care Provider Active Start: July 30, 2024 End: July 30, 2024 Dr. Andrade Epstein MD Attending Provider Active Start: July 30, 2024 End: July 30, 2024 Team Status: Active Member Role/Relationship Status Dates [facility] Primary Care Provider Active Start: July 30, 2024 Dr. Andrade Epstein MD Attending Provider Active Start: July 30, 2024 Dr. Andrade Epstein MD Referring Provider Active Start: July 30, 2024 Dr. Andrade Epstein MD Other Provider Active St art: July 30, 2024 Team Status: Inactive Member Role/Relationship Status Dates [facility] Primary Care Provider Active Start: August 04, 2024 End: August 04, 2024 [facility] Referring Provider Active Start: [facility] 2024 End: August 04, 2024 Dr. Zulay Celis MD Attending Provider Active Start: August 04, 2024 End: August 04, 2024 Team Status: Inactive Member Role/Relationship Status Dates [facility] Primary Care Provider Active Start: August 11, 2024 End: August 11, 2024 [facility] Referring Provider Active Start: [facility] 2024 End: August 11, 2024 Laurie Vail TECHNICAL PHOTOGRAPHER, TECHNICAL PHOTOGRAPHER-C Attending Provider Active Start: August 11, 2024 End: August 11, 2024 Team Status: Inactive Member Role/Relationship Status Dates [facility] Primary Care Provider Active Start: August 18, 2024 End: August 18, 2024 [facility] Referring Provider Active Start: [facility] 2024 End: August 18, 2024 aLurie Vail TECHNICAL PHOTOGRAPHER, TECHNICAL PHOTOGRAPHER-C Attending Provider Active Start: August 18, 2024 End: August 18, 2024 Team Status: Inactive Member Role/Relationship Status Dates [facility] Primary Care Provider Active Start: August 24, 2024 End: August 24, 2024 [facility] Referring Provider Active Start: [facility] 2024 End: August 24, 2024 Laurie Vail TECHNICAL PHOTOGRAPHER, TECHNICAL PHOTOGRAPHER-C Attending Provider Active Start: August 24, 2024 End: August 24, 2024 Team Status: Inactive Member Role/Relationship Status Dates [facility] Primary Care Provider Active Start: September 01, 2024 End: September 01, 2024 [facility] Referring Provider Active Start: [facility] 2024 End: September 01, 2024 Laurie Vail TECHNICAL PHOTOGRAPHER, TECHNICAL PHOTOGRAPHER-C Attending Provider Active Start: September 01, 2024 End: September 01, 2024 Team Status: Inactive Member Role/Relationship Status Dates [facility] Primary Care Provider Active Start: September 15, 2024 End: September 15, 2024 [facility] Referring Provider Active Start: [facility] 2024 End: September 15, 2024 Laurie Vail TECHNICAL PHOTOGRAPHER, TECHNICAL PHOTOGRAPHER-C Attending Provider Active Start: September 15, 2024 End: September 15, 2024 Team Status: Inactive Member Role/Relationship Status D[facility] Primary Care Provider Active Start: September 29, 2024 End: September 29, 2024 [facility] Referring Provider Active Start: Nasima ramsay 2024 End: September 29, 2024 Dr. Zulay Celis MD Attending Provider Active Start: September 29, 2024 End: September 29, 2024 Team Status: Inactive Member Role/Relationship Status D[facility] Primary Care Provider Active Start: October 13, 2024 End: October 13, 2024 [facility] Referring Provider Active Start: Nasima ramsay 2024 End: October 13, 2024 Dr. Zulay Celis MD Attending Provider Active Start: October 13, 2024 End: October 13, 2024 Team Status: Inactive Member Role/Relationship Status D[facility] Primary Care Provider Active Start: October 21, 2024 End: October 21, 2024 Laurie Vail TECHNICAL PHOTOGRAPHER, TECHNICAL PHOTOGRAPHER-C Attending Provider Active Start: October 21, 2024 End: October 21, 2024 Laurie Vail TECHNICAL PHOTOGRAPHER, TECHNICAL PHOTOGRAPHER-C Referring Provider Active Start: October 21, 2024 End: October 21, 2024 Team Status: Inactive Member Role/Relationship Status D[facility] Primary Care Provider Active Start: October 27, 2024 End: October 27, 2024 [facility] Referring Provider Active Start: 2024 End: October 27, 2024 Dr. Zulay Celis MD Attending Provider Active Start: October 27, 2024 End: October 27, 2024 Team Status: Inactive Member Role/Relationship Status D[facility] Primary Care Provider Active Start: November 11, 2024 End: November 11, 2024 [facility] Referring Provider Active Start: Sylvie 2024 End: November 11, 2024 Laurie Vail TECHNICAL PHOTOGRAPHER, TECHNICAL PHOTOGRAPHER-C Attending Provider Active Start: November 11, 2024 End: November 11, 2024 Team Status: Inactive Member Role/Relationship Status D[facility] Primary Care Provider Active Start: November 24, 2024 End: November 24, 2024 [facility] Referring Provider Active Start: 2024 End: November 24, 2024 Dr. Zulay Celis MD Attending Provider Active Start: November 24, 2024 End: November 24, 2024 Team Status: Active Member Role/Relationship Status [facility] Primary Care Provider Active Start: November 24, 2024 Dr. Zulay Celis MD Attending Provider Active Start: November 24, 2024 Dr. Zulay Celis MD Referring Provider Active Start: November 24, 2024 Team Status: Inactive Member Role/Relationship Status D[facility] Primary Care Provider Active Start: August 11, 2024 End: August 11, 2024 [facility] Referring Provider Active Start: [facility] 2024 End: August 11, 2024 Laurie Vail TECHNICAL PHOTOGRAPHER, TECHNICAL PHOTOGRAPHER-C Attending Provider Active Start: August 11, 2024 End: August 11, 2024 Team Status: Inactive Member Role/Relationship Status D[facility] Primary Care Provider Active Start: August 18, 2024 End: August 18, 2024 [facility] Referring Provider Active Start: [facility] 2024 End: August 18, 2024 Laurie Garciaach TECHNICAL PHOTOGRAPHER, TECHNICAL PHOTOGRAPHER-C Attending Provider Active Start: August 18, 2024 End: August 18, 2024 Team Status: Inactive Member Role/Relationship Status [facility] Primary Care Provider Active Start: August 24, 2024 End: August 24, 2024 [facility] Referring Provider Active Start: [facility] 2024 End: August 24, 2024 Laurie Yared TECHNICAL PHOTOGRAPHER, TECHNICAL PHOTOGRAPHER-C Attending Provider Active Start: August 24, 2024 End: August 24, 2024 Team Status: Inactive Member Role/Relationship Status [facility] Primary Care Provider Active Start: September 01, 2024 End: September 01, 2024 [facility] Referring Provider Active Start: 2024 End: September 01, 2024 Laurie Yared TECHNICAL PHOTOGRAPHER, TECHNICAL PHOTOGRAPHER-C Attending Provider Active Start: September 01, 2024 End: September 01, 2024 Team Status: Inactive Member Role/Relationship Status D[facility] Primary Care Provider Active Start: September 15, 2024 End: September 15, 2024 [facility] Referring Provider Active Start: [facility] 2024 End: September 15, 2024 Laurie Yared TECHNICAL PHOTOGRAPHER, TECHNICAL PHOTOGRAPHER-C Attending Provider Active Start: September 15, 2024 End: September 15, 2024 Team Status: Inactive Member Role/Relationship Status D[facility] Primary Care Provider Active Start: September 29, 2024 End: September 29, 2024 [facility] Referring Provider Active Start: Nasima ramsay 2024 End: September 29, 2024 Dr. Zulay Celis MD Attending Provider Active Start: September 29, 2024 End: September 29, 2024 Team Status: Inactive Member Role/Relationship Status [facility] Primary Care Provider Active Start: October 13, 2024 End: October 13, 2024 [facility] Referring Provider Active Start: Nasima ramsay 2024 End: October 13, 2024 Dr. Zulay Celis MD Attending Provider Active Start: October 13, 2024 End: October 13, 2024 Team Status: Inactive Member Role/Relationship Status [facility] Primary Care Provider Active Start: October 21, 2024 End: October 21, 2024 Laurie Vail TECHNICAL PHOTOGRAPHER, TECHNICAL PHOTOGRAPHER-C Attending Provider Active Start: October 21, 2024 End: October 21, 2024 Laurie Vail TECHNICAL PHOTOGRAPHER, TECHNICAL PHOTOGRAPHER-C Referring Provider Active Start: October 21, 2024 End: October 21, 2024 Team Status: Inactive Member Role/Relationship Status [facility] Primary Care Provider Active Start: October 27, 2024 End: October 27, 2024 [facility] Referring Provider Active Start: Sylvie palma 2024 End: October 27, 2024 Dr. Zulay Celis MD Attending Provider Active Start: October 27, 2024 End: October 27, 2024 Team Status: Inactive Member Role/Relationship Status [facility] Primary Care Provider Active Start: November 11, 2024 End: November 11, 2024 [facility] Referring Provider Active Start: Sylvie palma 2024 End: November 11, 2024 Laurie Vail TECHNICAL PHOTOGRAPHER, TECHNICAL PHOTOGRAPHER-C Attending Provider Active Start: November 11, 2024 End: November 11, 2024 Team Status: Inactive Member Role/Relationship Status [facility] Primary Care Provider Active Start: November 24, 2024 End: November 24, 2024 [facility] Referring Provider Active Start: Sylvie valdovinos 2024 End: November 24, 2024 Dr. Zulay Celis MD Attending Provider Active Start: November 24, 2024 End: November 24, 2024 Team Status: Inactive Member Role/Relationship Status [facility] Primary Care Provider Active Start: December 08, 2024 End: December 08, 2024 [facility] Referring Provider Active Start: Sylvie valdovinos 2024 End: December 08, 2024 Laurie Vail TECHNICAL PHOTOGRAPHER, TECHNICAL PHOTOGRAPHER-C Attending Provider Active Start: December 08, 2024 End: December 08, 2024 Team Status: Active Member Role/Relationship Status [facility] Primary Care Provider Active Start: December 08, 2024 Dr. Zulay Celis MD Attending Provider Active Start: December 08, 2024 Dr. Zulay Celis MD Referring Provider Active Start: December 08, 2024 Team Status: Inactive Member Role/Relationship Status D[facility] Primary Care Provider Active Start: August 24, 2024 End: August 24, 2024 [facility] Referring Provider Active Start: Nasima [facility] 2024 End: August 24, 2024 Laurie Yared TECHNICAL PHOTOGRAPHER, TECHNICAL PHOTOGRAPHER-C Attending Provider Active Start: August 24, 2024 End: August 24, 2024 Team Status: Inactive Member Role/Relationship Status [facility] Primary Care Provider Active Start: September 01, 2024 End: September 01, 2024 [facility] Referring Provider Active Start: [facility] 2024 End: September 01, 2024 Laurie Yared TECHNICAL PHOTOGRAPHER, TECHNICAL PHOTOGRAPHER-C Attending Provider Active Start: September 01, 2024 End: September 01, 2024 Team Status: Inactive Member Role/Relationship Status D[facility] Primary Care Provider Active Start: September 15, 2024 End: September 15, 2024 [facility] Referring Provider Active Start: Ap ril 2024 End: September 15, 2024 Laurie Yared TECHNICAL PHOTOGRAPHER, TECHNICAL PHOTOGRAPHER-C Attending Provider Active Start: September 15, 2024 End: September 15, 2024 Team Status: Inactive Member Role/Relationship Status D[facility] Primary Care Provider Active Start: September 29, 2024 End: September 29, 2024 [facility] Referring Provider Active Start: Nasima ramsay 2024 End: September 29, 2024 Dr. Zulay Celis MD Attending Provider Active Start: September 29, 2024 End: September 29, 2024 Team Status: Inactive Member Role/Relationship Status D[facility] Primary Care Provider Active Start: October 13, 2024 End: October 13, 2024 [facility] Referring Provider Active Start: Nasima ramsay 2024 End: October 13, 2024 Dr. Zulay Celis MD Attending Provider Active Start: October 13, 2024 End: October 13, 2024 Team Status: Inactive Member Role/Relationship Status D[facility] Primary Care Provider Active Start: October 21, 2024 End: October 21, 2024 Laurie Vail TECHNICAL PHOTOGRAPHER, TECHNICAL PHOTOGRAPHER-C Attending Provider Active Start: October 21, 2024 End: October 21, 2024 Laurie Vail TECHNICAL PHOTOGRAPHER, TECHNICAL PHOTOGRAPHER-C Referring Provider Active Start: October 21, 2024 End: October 21, 2024 Team Status: Inactive Member Role/Relationship Status D[facility] Primary Care Provider Active Start: October 27, 2024 End: October 27, 2024 [facility] Referring Provider Active Start: Sylvie 2024 End: October 27, 2024 Dr. Zulay Celis MD Attending Provider Active Start: October 27, 2024 End: October 27, 2024 Team Status: Inactive Member Role/Relationship Status D[facility] Primary Care Provider Active Start: November 11, 2024 End: November 11, 2024 [facility] Referring Provider Active Start: Sylvie palma 2024 End: November 11, 2024 Laurie Vail TECHNICAL PHOTOGRAPHER, TECHNICAL PHOTOGRAPHER-C Attending Provider Active Start: November 11, 2024 End: November 11, 2024 Team Status: Inactive Member Role/Relationship Status D[facility] Primary Care Provider Active Start: November 24, 2024 End: November 24, 2024 [facility] Referring Provider Active Start: Sylvie valdovinos 2024 End: November 24, 2024 Dr. Zulay Celis MD Attending Provider Active Start: November 24, 2024 End: November 24, 2024 Team Status: Inactive Member Role/Relationship Status D[facility] Primary Care Provider Active Start: December 08, 2024 End: December 08, 2024 [facility] Referring Provider Active Start: Sylvie ly 2024 End: December 08, 2024 Laurie Vail TECHNICAL PHOTOGRAPHER, TECHNICAL PHOTOGRAPHER-C Attending Provider Active Start: December 08, 2024 End: December 08, 2024 Team Status: Inactive Member Role/Relationship Status [facility] Primary Care Provider Active Start: December 22, 2024 End: December 22, 2024 [facility] Referring Provider Active Start: Sylvie valdovinos 2024 End: December 22, 2024 Dr. Santosh Pires MD Attending Provider Active S tart: December 22, 2024 End: December 22, 2024 Team Status: Active Member Role/Relationship Status [facility] Primary Care Provider Active Start: December 22, 2024 Dr. Zulay Celis MD Attending Provider Active Start: December 22, 2024 Dr. Zulay Celis MD Referring Provider Active Start: December 22, 2024 Team Status: Inactive Member Role/Relationship Status [facility] Primary Care Provider Active Start: September 15, 2024 End: September 15, 2024 [facility] Referring Provider Active Start: Vazquez gonzalez 2024 End: September 15, 2024 Laurie Vail TECHNICAL PHOTOGRAPHER, TECHNICAL PHOTOGRAPHER-C Attending Provider Active Start: September 15, 2024 End: September 15, 2024 Team Status: Inactive Member Role/Relationship Status [facility] Primary Care Provider Active Start: September 29, 2024 End: September 29, 2024 [facility] Referring Provider Active Start: Nasima ramsay 2024 End: September 29, 2024 Dr. Zulay Celis MD Attending Provider Active Start: September 29, 2024 End: September 29, 2024 Team Status: Inactive Member Role/Relationship Status [facility] Primary Care Provider Active Start: October 13, 2024 End: October 13, 2024 [facility] Referring Provider Active Start: Nasima ramsay 2024 End: October 13, 2024 Dr. Zulay Celis MD Attending Provider Active Start: October 13, 2024 End: October 13, 2024 Team Status: Inactive Member Role/Relationship Status D[facility] Primary Care Provider Active Start: October 21, 2024 End: October 21, 2024 Laurie Vail TECHNICAL PHOTOGRAPHER, TECHNICAL PHOTOGRAPHER-C Attending Provider Active Start: October 21, 2024 End: October 21, 2024 Laurie Vail TECHNICAL PHOTOGRAPHER, TECHNICAL PHOTOGRAPHER-C Referring Provider Active Start: October 21, 2024 End: October 21, 2024 Team Status: Inactive Member Role/Relationship Status [facility] Primary Care Provider Active Start: October 27, 2024 End: October 27, 2024 [facility] Referring Provider Active Start: Sylvie palma 2024 End: October 27, 2024 Dr. Zulay Celis MD Attending Provider Active Start: October 27, 2024 End: October 27, 2024 Team Status: Inactive Member Role/Relationship Status [facility] Primary Care Provider Active Start: November 11, 2024 End: November 11, 2024 [facility] Referring Provider Active Start: Sylvie palma 2024 End: November 11, 2024 Laurie Vail NP, TECHNICAL PHOTOGRAPHER-C Attending Provider Active Start: November 11, 2024 End: November 11, 2024 Team Status: Inactive Member Role/Relationship Status [facility] Primary Care Provider Active Start: November 24, 2024 End: November 24, 2024 [facility] Referring Provider Active Start: Ju ly 2024 End: November 24, 2024 Dr. Zulay Celis MD Attending Provider Active Start: November 24, 2024 End: November 24, 2024 Team Status: Inactive Member Role/Relationship Status [facility] Primary Care Provider Active Start: December 08, 2024 End: December 08, 2024 [facility] Referring Provider Active Start: Ju ly 2024 End: December 08, 2024 Laurie Vail TECHNICAL PHOTOGRAPHER, TECHNICAL PHOTOGRAPHER-C Attending Provider Active Start: December 08, 2024 End: December 08, 2024 Team Status: Inactive Member Role/Relationship Status [facility] Primary Care Provider Active Start: December 22, 2024 End: December 22, 2024 [facility] Referring Provider Active Start: Ju ly 2024 End: December 22, 2024 Dr. Santosh Pires MD Attending Provider Active S tart: December 22, 2024 End: December 22, 2024 Team Status: Inactive Member Role/Relationship Status [facility] Primary Care Provider Active Start: January 05, 2025 End: January 05, 2025 [facility] Referring Provider Active Start: Leann 2024 End: January 05, 2025 Dr. Zulay Celis MD Attending Provider Active Start: January 05, 2025 End: January 05, 2025 Team Status: Active Member Role/Relationship Status [facility] Primary Care Provider Active Start: January 05, 2025 Dr. Zulay Celis MD Attending Provider Active Start: January 05, 2025 Dr. Zulay Celis MD Referring Provider Active Start: January 05, 2025 Team Status: Inactive Member Role/Relationship Status [facility] Primary Care Provider Active Start: September 29, 2024 End: September 29, 2024 [facility] Referring Provider Active Start: Nasima ramsay 2024 End: September 29, 2024 Dr. Zulay Celis MD Attending Provider Active Start: September 29, 2024 End: September 29, 2024 Team Status: Inactive Member Role/Relationship Status [facility] Primary Care Provider Active Start: October 13, 2024 End: October 13, 2024 [facility] Referring Provider Active Start: Nasima ramsay 2024 End: October 13, 2024 Dr. Zulay Celis MD Attending Provider Active Start: October 13, 2024 End: October 13, 2024 Team Status: Inactive Member Role/Relationship Status [facility] Primary Care Provider Active Start: October 21, 2024 End: October 21, 2024 Laurie Vail TECHNICAL PHOTOGRAPHER, TECHNICAL PHOTOGRAPHER-C Attending Provider Active Start: October 21, 2024 End: October 21, 2024 Laurie Vail TECHNICAL PHOTOGRAPHER, TECHNICAL PHOTOGRAPHER-C Referring Provider Active Start: October 21, 2024 End: October 21, 2024 Team Status: Inactive Member Role/Relationship Status [facility] Primary Care Provider Active Start: October 27, 2024 End: October 27, 2024 [facility] Referring Provider Active Start: Sylvie palma 2024 End: October 27, 2024 Dr. Zulay Celis MD Attending Provider Active Start: October 27, 2024 End: October 27, 2024 Team Status: Inactive Member Role/Relationship Status [facility] Primary Care Provider Active Start: November 11, 2024 End: November 11, 2024 [facility] Referring Provider Active Start: Sylvie ne 2024 End: November 11, 2024 Laurie Vail TECHNICAL PHOTOGRAPHER, TECHNICAL PHOTOGRAPHER-C Attending Provider Active Start: November 11, 2024 End: November 11, 2024 Team Status: Inactive Member Role/Relationship Status [facility] Primary Care Provider Active Start: November 24, 2024 End: November 24, 2024 [facility] Referring Provider Active Start: Sylvie valdovinos 2024 End: November 24, 2024 Dr. Zulay Celis MD Attending Provider Active Start: November 24, 2024 End: November 24, 2024 Team Status: Inactive Member Role/Relationship Status [facility] Primary Care Provider Active Start: December 08, 2024 End: December 08, 2024 [facility] Referring Provider Active Start: Sylvie ly 2024 End: December 08, 2024 Laurie Vail TECHNICAL PHOTOGRAPHER, TECHNICAL PHOTOGRAPHER-C Attending Provider Active Start: December 08, 2024 End: December 08, 2024 Team Status: Inactive Member Role/Relationship Status [facility] Primary Care Provider Active Start: December 22, 2024 End: December 22, 2024 [facility] Referring Provider Active Start: Sylvie valdovinos 2024 End: December 22, 2024 Dr. Santosh Pires MD Attending Provider Active S tart: December 22, 2024 End: December 22, 2024 Team Status: Inactive Member Role/Relationship Status [facility] Primary Care Provider Active Start: January 05, 2025 End: January 05, 2025 [facility] Referring Provider Active Start: Leann escalante 2024 End: January 05, 2025 Dr. Zulay Celis MD Attending Provider Active Start: January 05, 2025 End: January 05, 2025 Team Status: Active Member Role/Relationship Status [facility] Primary Care Provider Active Start: January 15, 2025 Laurie Yared TECHNICAL PHOTOGRAPHER, TECHNICAL PHOTOGRAPHER-C Attending Provider Active Start: January 15, 2025 Laurie Yared TECHNICAL PHOTOGRAPHER, TECHNICAL PHOTOGRAPHER-C Referring Provider Active Start: January 15, 2025 Team Status: Inactive Member Role/Relationship Status [facility] Primary Care Provider Active Start: January 19, 2025 End: January 19, 2025 [facility] Referring Provider Active Start: Leann escalante 2024 End: January 19, 2025 Dr. Zulay Celis MD Attending Provider Active Start: January 19, 2025 End: January 19, 2025 Team Status: Active Member Role/Relationship Status [facility] Primary Care Provider Active Start: January 19, 2025 Dr. Zulay Celis MD Attending Provider Active Start: January 19, 2025 Dr. Zulay Celis MD Referring Provider Active Start: January 19, 2025 Team Status: Inactive Member Role/Relationship Status [facility] Primary Care Provider Active Start: January 15, 2025 End: January 15, 2025 Laurie Yared TECHNICAL PHOTOGRAPHER, TECHNICAL PHOTOGRAPHER-C Attending Provider Active Start: January 15, 2025 End: January 15, 2025 Laurie Yared TECHNICAL PHOTOGRAPHER, TECHNICAL PHOTOGRAPHER-C Referring Provider Active Start: January 15, 2025 End: January 15, 2025 Team Status: Active Member Role/Relationship Status [facility] Primary Care Provider Active Start: January 21, 2025 Dr. Zulay Celis MD Attending Provider Active Start: January 21, 2025 Dr. Zulay Celis MD Referring Provider Active Start: January 21, 2025 Team Status: Inactive Member Role/Relationship Status [facility] Primary Care Provider Active Start: October 13, 2024 End: October 13, 2024 [facility] Referring Provider Active Start: Nasima ramsay 2024 End: October 13, 2024 Dr. Zulay Celis MD Attending Provider Active Start: October 13, 2024 End: October 13, 2024 Team Status: Inactive Member Role/Relationship Status [facility] Primary Care Provider Active Start: October 21, 2024 End: October 21, 2024 Laurie Vail TECHNICAL PHOTOGRAPHER, TECHNICAL PHOTOGRAPHER-C Attending Provider Active Start: October 21, 2024 End: October 21, 2024 Laurie Yared TECHNICAL PHOTOGRAPHER, TECHNICAL PHOTOGRAPHER-C Referring Provider Active Start: October 21, 2024 End: October 21, 2024 Team Status: Inactive Member Role/Relationship Status [facility] Primary Care Provider Active Start: October 27, 2024 End: October 27, 2024 [facility] Referring Provider Active Start: Sylvie 2024 End: October 27, 2024 Dr. Zulay Celis MD Attending Provider Active Start: October 27, 2024 End: October 27, 2024 Team Status: Inactive Member Role/Relationship Status [facility] Primary Care Provider Active Start: November 11, 2024 End: November 11, 2024 [facility] Referring Provider Active Start: Sylvie palma 2024 End: November 11, 2024 Laurie Vail TECHNICAL PHOTOGRAPHER, TECHNICAL PHOTOGRAPHER-C Attending Provider Active Start: November 11, 2024 End: November 11, 2024 Team Status: Inactive Member Role/Relationship Status [facility] Primary Care Provider Active Start: November 24, 2024 End: November 24, 2024 [facility] Referring Provider Active Start: Sylvie valdovinos 2024 End: November 24, 2024 Dr. Zulay Celis MD Attending Provider Active Start: November 24, 2024 End: November 24, 2024 Team Status: Inactive Member Role/Relationship Status [facility] Primary Care Provider Active Start: December 08, 2024 End: December 08, 2024 [facility] Referring Provider Active Start: Sylvie ly 2024 End: December 08, 2024 Laurie Vail TECHNICAL PHOTOGRAPHER, TECHNICAL PHOTOGRAPHER-C Attending Provider Active Start: December 08, 2024 End: December 08, 2024 Team Status: Inactive Member Role/Relationship Status [facility] Primary Care Provider Active Start: December 22, 2024 End: December 22, 2024 [facility] Referring Provider Active Start: aruna 2024 End: December 22, 2024 Dr. Santosh Pires MD Attending Provider Active S tart: December 22, 2024 End: December 22, 2024 Team Status: Inactive Member Role/Relationship Status Dates [facility] Primary Care Provider Active Start: January 05, 2025 End: January 05, 2025 [facility] Referring Provider Active Start: Leann escalante 2024 End: January 05, 2025 Dr. Zulay Celis MD Attending Provider Active Start: January 05, 2025 End: January 05, 2025 Team Status: Inactive Member Role/Relationship Status Dates [facility] Primary Care Provider Active Start: January 15, 2025 End: January 15, 2025 Laurie Vail TECHNICAL PHOTOGRAPHER, TECHNICAL PHOTOGRAPHER-C Attending Provider Active Start: January 15, 2025 End: January 15, 2025 Laurie Vail TECHNICAL PHOTOGRAPHER, TECHNICAL PHOTOGRAPHER-C Referring Provider Active Start: January 15, 2025 End: January 15, 2025 Team Status: Inactive Member Role/Relationship Status Dates [facility] Primary Care Provider Active Start: January 19, 2025 End: January 19, 2025 [facility] Referring Provider Active Start: Leann escalante 2024 End: January 19, 2025 Dr. Zulay Celsi MD Attending Provider Active Start: January 19, 2025 End: January 19, 2025 Team Status: Inactive Member Role/Relationship Status Dates [facility] Primary Care Provider Active Start: February 02, 2025 End: February 02, 2025 [facility] Referring Provider Active Start: Se [email or web address] End: February 02, 2025 Laurie Vail TECHNICAL PHOTOGRAPHER, TECHNICAL PHOTOGRAPHER-C Attending Provider Active Start: February 02, 2025 End: February 02, 2025 Team Status: Active Member Role/Relationship Status Dates [facility] Primary Care Provider Active Start: February 02, 2025 Dr. Zulay Celis MD Attending Provider Active Start: February 02, 2025 Dr. Zulay Celis MD Referring Provider Active Start: February 02, 2025 Team Status: Active Member Role/Relationship Status Dates [facility] Primary care physician Active Team Status: Inactive Member Role/Relationship Status Dates [facility] Primary care physician Active Start : October 13, 2024 End: October 13, 2024 [facility] Referring Provider Active Start: Nasima ramsay 2024 End: October 13, 2024 Dr. Zulay Celis MD Attending physician Active Start: October 13, 2024 End: October 13, 2024 Team Status: Inactive Member Role/Relationship Status Dates [facility] Primary care physician Active Start : October 21, 2024 End: October 21, 2024 Laurie Vail TECHNICAL PHOTOGRAPHER, TECHNICAL PHOTOGRAPHER-C Attending physician Active Start: October 21, 2024 End: October 21, 2024 Laurie Vail TECHNICAL PHOTOGRAPHER, TECHNICAL PHOTOGRAPHER-C Referring Provider Active Start: October 21, 2024 End: October 21, 2024 Team Status: Inactive Member Role/Relationship Status Dates [facility] Primary care physician Active Start : October 27, 2024 End: October 27, 2024 [facility] Referring Provider Active Start: Sylvie palma 2024 End: October 27, 2024 Dr. Zulay Celis MD Attending physician Active Start: October 27, 2024 End: October 27, 2024 Team Status: Inactive Member Role/Relationship Status Dates [facility] Primary care physician Active Start : November 11, 2024 End: November 11, 2024 [facility] Referring Provider Active Start: Sylvie palma 2024 End: November 11, 2024 Laurie Vail TECHNICAL PHOTOGRAPHER, TECHNICAL PHOTOGRAPHER-C Attending physician Active Start: November 11, 2024 End: November 11, 2024 Team Status: Inactive Member Role/Relationship Status Dates [facility] Primary care physician Active Start : November 24, 2024 End: November 24, 2024 [facility] Referring Provider Active Start: Sylvie valdovinos 2024 End: November 24, 2024 Dr. Zulay eClis MD Attending physician Active Start: November 24, 2024 End: November 24, 2024 Team Status: Inactive Member Role/Relationship Status Dates [facility] Primary care physician Active Start : December 08, 2024 End: December 08, 2024 [facility] Referring Provider Active Start: Sylvie ly 2024 End: December 08, 2024 Laurie Vail TECHNICAL PHOTOGRAPHER, TECHNICAL PHOTOGRAPHER-C Attending physician Active Start: December 08, 2024 End: December 08, 2024 Team Status: Inactive Member Role/Relationship Status Dates [facility] Primary care physician Active Start : December 22, 2024 End: December 22, 2024 [facility] Referring Provider Active Start: Sylvie aruna 2024 End: December 22, 2024 Dr. Santosh Pires MD Attending physician Active Start: December 22, 2024 End: December 22, 2024 Team Status: Inactive Member Role/Relationship Status Dates [facility] Primary care physician Active Start : January 05, 2025 End: January 05, 2025 [facility] Referring Provider Active Start: [facility] 2024 End: January 05, 2025 Dr. Zulay Celis MD Attending physician Active Start: January 05, 2025 End: January 05, 2025 Team Status: Inactive Member Role/Relationship Status Dates [facility] Primary care physician Active Start : January 15, 2025 End: January 15, 2025 Laurie Vail TECHNICAL PHOTOGRAPHER, TECHNICAL PHOTOGRAPHER-C Attending physician Active Start: January 15, 2025 End: January 15, 2025 Laurie Vail TECHNICAL PHOTOGRAPHER, TECHNICAL PHOTOGRAPHER-C Referring Provider Active Start: January 15, 2025 End: January 15, 2025 Team Status: Inactive Member Role/Relationship Status Dates [facility] Primary care physician Active Start : January 19, 2025 End: January 19, 2025 [facility] Referring Provider Active Start: [facility] 2024 End: January 19, 2025 Dr. Zulay Celis MD Attending physician Active Start: January 19, 2025 End: January 19, 2025 Team Status: Inactive Member Role/Relationship Status Dates [facility] Primary care physician Active Start : February 02, 2025 End: February 02, 2025 [facility] Referring Provider Active Start: [email or web address] End: February 02, 2025 Laurie Vail NP, TECHNICAL PHOTOGRAPHER-C Attending physician Active Start: February 02, 2025 End: February 02, 2025 Team Status: Active Member Role/Relationship Status Dates [facility] Primary care physician Active Start : February 10, 2025 Dr. Zulay Celis MD Attending physician Active Start: February 10, 2025 Dr. Zulay Celis MD Referring Provider Active Start: February 10, 2025 Team Status: Inactive Member Role/Relationship Status Dates [facility] Primary care physician Active Start : February 10, 2025 End: February 10, 2025 [facility] Referring Provider Active Start: Se [email or web address] End: February 10, 2025 Laurie Yared TECHNICAL PHOTOGRAPHER, TECHNICAL PHOTOGRAPHER-C Attending physician Active Start: February 10, 2025 End: February 10, 2025 Team Status: Inactive Member Role/Relationship Status Dates [facility] Primary care physician Active Start : October 27, 2024 End: October 27, 2024 [facility] Referring Provider Active Start: Sylvie palma 2024 End: October 27, 2024 Dr. Zulay Celis MD Attending physician Active Start: October 27, 2024 End: October 27, 2024 Team Status: Inactive Member Role/Relationship Status Dates [facility] Primary care physician Active Start : November 11, 2024 End: November 11, 2024 [facility] Referring Provider Active Start: Sylvie ne 2024 End: November 11, 2024 Laurie Vail TECHNICAL PHOTOGRAPHER, TECHNICAL PHOTOGRAPHER-C Attending physician Active Start: November 11, 2024 End: November 11, 2024 Team Status: Inactive Member Role/Relationship Status Dates [facility] Primary care physician Active Start : November 24, 2024 End: November 24, 2024 [facility] Referring Provider Active Start: Sylvie valdovinos 2024 End: November 24, 2024 Dr. Zulay Celis MD Attending physician Active Start: November 24, 2024 End: November 24, 2024 Team Status: Inactive Member Role/Relationship Status Dates [facility] Primary care physician Active Start : December 08, 2024 End: December 08, 2024 [facility] Referring Provider Active Start: Sylvie ly 2024 End: December 08, 2024 Laurie Vail NP, TECHNICAL PHOTOGRAPHER-C Attending physician Active Start: December 08, 2024 End: December 08, 2024 Team Status: Inactive Member Role/Relationship Status Dates [facility] Primary care physician Active Start : December 22, 2024 End: December 22, 2024 [facility] Referring Provider Active Start: Sylvie valdovinos 2024 End: December 22, 2024 Dr. Santosh Pires MD Attending physician Active Start: December 22, 2024 End: December 22, 2024 Team Status: Inactive Member Role/Relationship Status Dates [facility] Primary care physician Active Start : January 05, 2025 End: January 05, 2025 [facility] Referring Provider Active Start: Leann 2024 End: January 05, 2025 Dr. Zulay Celis MD Attending physician Active Start: January 05, 2025 End: January 05, 2025 Team Status: Inactive Member Role/Relationship Status Dates [facility] Primary care physician Active Start : January 15, 2025 End: January 15, 2025 Laurie Vail TECHNICAL PHOTOGRAPHER, TECHNICAL PHOTOGRAPHER-C Attending physician Active Start: January 15, 2025 End: January 15, 2025 Laurie Vail TECHNICAL PHOTOGRAPHER, TECHNICAL PHOTOGRAPHER-C Referring Provider Active Start: January 15, 2025 End: January 15, 2025 Team Status: Inactive Member Role/Relationship Status Dates [facility] Primary care physician Active Start : January 19, 2025 End: January 19, 2025 [facility] Referring Provider Active Start: 2024 End: January 19, 2025 Dr. Zulay Celis MD Attending physician Active Start: January 19, 2025 End: January 19, 2025 Team Status: Inactive Member Role/Relationship Status Dates [facility] Primary care physician Active Start : February 02, 2025 End: February 02, 2025 [facility] Referring Provider Active Start: Se [email or web address] End: February 02, 2025 Laurie Vail TECHNICAL PHOTOGRAPHER, TECHNICAL PHOTOGRAPHER-C Attending physician Active Start: February 02, 2025 End: February 02, 2025 Team Status: Inactive Member Role/Relationship Status Dates [facility] Primary care physician Active Start : February 10, 2025 End: February 10, 2025 [facility] Referring Provider Active Start: [email or web address] End: February 10, 2025 Laurie Vail NP, TECHNICAL PHOTOGRAPHER-C Attending physician Active Start: February 10, 2025 End: February 10, 2025 Team Status: Inactive Member Role/Relationship Status Dates [facility] Primary care physician Active Start : February 16, 2025 End: February 16, 2025 [facility] Referring Provider Active Start: Se [id number] End: February 16, 2025 Dr. Zulay Celis MD Attending physician Active Start: February 16, 2025 End: February 16, 2025 Team Status: Active Member Role/Relationship Status Dates [facility] Primary care physician Active Start : February 18, 2025 Dr. Zulay Celis MD Attending physician Active Start: February 18, 2025 Dr. Zulay Celis MD Referring Provider Active Start: February 18, 2025 Team Status: Inactive Member Role/Relationship Status Dates [facility] Primary care physician Active Start : November 11, 2024 End: November 11, 2024 [facility] Referring Provider Active Start: Sylvie ne 2024 End: November 11, 2024 Laurie Vail NP, TECHNICAL PHOTOGRAPHER-C Attending physician Active Start: November 11, 2024 End: November 11, 2024 Team Status: Inactive Member Role/Relationship Status Dates [facility] Primary care physician Active Start : November 24, 2024 End: November 24, 2024 [facility] Referring Provider Active Start: Sylvie ly 2024 End: November 24, 2024 Dr. Zulay Celis MD Attending physician Active Start: November 24, 2024 End: November 24, 2024 Team Status: Inactive Member Role/Relationship Status Dates [facility] Primary care physician Active Start : December 08, 2024 End: December 08, 2024 [facility] Referring Provider Active Start: Sylvie ly 2024 End: December 08, 2024 Laurie Vail NP, TECHNICAL PHOTOGRAPHER-C Attending physician Active Start: December 08, 2024 End: December 08, 2024 Team Status: Inactive Member Role/Relationship Status Dates [facility] Primary care physician Active Start : December 22, 2024 End: December 22, 2024 [facility] Referring Provider Active Start: Sylvie valdovinos 2024 End: December 22, 2024 Dr. Santosh Pires MD Attending physician Active Start: December 22, 2024 End: December 22, 2024 Team Status: Inactive Member Role/Relationship Status Dates [facility] Primary care physician Active Start : January 05, 2025 End: January 05, 2025 [facility] Referring Provider Active Start: 2024 End: January 05, 2025 Dr. Zulay Celis MD Attending physician Active Start: January 05, 2025 End: January 05, 2025 Team Status: Inactive Member Role/Relationship Status Dates [facility] Primary care physician Active Start : January 15, 2025 End: January 15, 2025 Laurie Vail NP, TECHNICAL PHOTOGRAPHER-C Attending physician Active Start: January 15, 2025 End: January 15, 2025 Laurie Vail TECHNICAL PHOTOGRAPHER, TECHNICAL PHOTOGRAPHER-C Referring Provider Active Start: January 15, 2025 End: January 15, 2025 Team Status: Inactive Member Role/Relationship Status Dates [facility] Primary care physician Active Start : January 19, 2025 End: January 19, 2025 [facility] Referring Provider Active Start: Au 2024 End: January 19, 2025 Dr. Zulay Celis MD Attending physician Active Start: January 19, 2025 End: January 19, 2025 Team Status: Inactive Member Role/Relationship Status Dates [facility] Primary care physician Active Start : February 02, 2025 End: February 02, 2025 [facility] Referring Provider Active Start: Se [email or web address] End: February 02, 2025 Laurie Vail NP, TECHNICAL PHOTOGRAPHER-C Attending physician Active Start: February 02, 2025 End: February 02, 2025 Team Status: Inactive Member Role/Relationship Status Dates [facility] Primary care physician Active Start : February 10, 2025 End: February 10, 2025 [facility] Referring Provider Active Start: Se [email or web address] End: February 10, 2025 Laurie Vail NP, TECHNICAL PHOTOGRAPHER-C Attending physician Active Start: February 10, 2025 End: February 10, 2025 Team Status: Inactive Member Role/Relationship Status Dates [facility] Primary care physician Active Start : February 16, 2025 End: February 16, 2025 [facility] Referring Provider Active Start: Se [email or web address] End: February 16, 2025 Dr. Zulay Celis MD Attending physician Active Start: February 16, 2025 End: February 16, 2025 Team Status: Inactive Member Role/Relationship Status Dates [facility] Primary care physician Active Start : March 02, 2025 End: March 02, 2025 [facility] Referring Provider Active Start: Jhonathan 2024 End: March 02, 2025 Laurie Vail NP, TECHNICAL PHOTOGRAPHER-C Attending physician Active Start: March 02, 2025 End: March 02, 2025 Team Status: Active Member Role/Relationship Status Dates [facility] Primary care physician Active Start : March 02, 2025 Dr. Zulay Celis MD Attending physician Active Start: March 02, 2025 Dr. Zulay Celis MD Referring Provider Active Start: March 02, 2025 Team Status: Inactive Member Role/Relationship Status Dates [facility] Primary care physician Active Start : November 24, 2024 End: November 24, 2024 [facility] Referring Provider Active Start: 2024 End: November 24, 2024 Dr. Zulay Celis MD Attending physician Active Start: November 24, 2024 End: November 24, 2024 Team Status: Inactive Member Role/Relationship Status Dates [facility] Primary care physician Active Start : December 08, 2024 End: December 08, 2024 [facility] Referring Provider Active Start: Sylvie valdovinos 2024 End: December 08, 2024 Laurie Vail TECHNICAL PHOTOGRAPHER, TECHNICAL PHOTOGRAPHER-C Attending physician Active Start: December 08, 2024 End: December 08, 2024 Team Status: Inactive Member Role/Relationship Status Dates [facility] Primary care physician Active Start : December 22, 2024 End: December 22, 2024 [facility] Referring Provider Active Start: Sylvie valdovinos 2024 End: December 22, 2024 Dr. Santosh Pires MD Attending physician Active Start: December 22, 2024 End: December 22, 2024 Team Status: Inactive Member Role/Relationship Status Dates [facility] Primary care physician Active Start : January 05, 2025 End: January 05, 2025 [facility] Referring Provider Active Start: Leann escalante 2024 End: January 05, 2025 Dr. Zulay Celis MD Attending physician Active Start: January 05, 2025 End: January 05, 2025 Team Status: Inactive Member Role/Relationship Status Dates [facility] Primary care physician Active Start : January 15, 2025 End: January 15, 2025 Laurie Vail TECHNICAL PHOTOGRAPHER, TECHNICAL PHOTOGRAPHER-C Attending physician Active Start: January 15, 2025 End: January 15, 2025 Laurie Vail TECHNICAL PHOTOGRAPHER, TECHNICAL PHOTOGRAPHER-C Referring Provider Active Start: January 15, 2025 End: January 15, 2025 Team Status: Inactive Member Role/Relationship Status Dates [facility] Primary care physician Active Start : January 19, 2025 End: January 19, 2025 [facility] Referring Provider Active Start: Leann escalante 2024 End: January 19, 2025 Dr. Zulay Celis MD Attending physician Active Start: January 19, 2025 End: January 19, 2025 Team Status: Inactive Member Role/Relationship Status Dates [facility] Primary care physician Active Start : February 02, 2025 End: February 02, 2025 [facility] Referring Provider Active Start: Se peralta 2024 End: February 02, 2025 Laurie Vail TECHNICAL PHOTOGRAPHER, TECHNICAL PHOTOGRAPHER-C Attending physician Active Start: February 02, 2025 End: February 02, 2025 Team Status: Inactive Member Role/Relationship Status Dates [facility] Primary care physician Active Start : February 10, 2025 End: February 10, 2025 [facility] Referring Provider Active Start: Se [email or web address] End: February 10, 2025 Laurie Vail NP TECHNICAL PHOTOGRAPHER-C Attending physician Active Start: February 10, 2025 End: February 10, 2025 Team Status: Inactive Member Role/Relationship Status Dates [facility] Primary care physician Active Start : February 16, 2025 End: February 16, 2025 [facility] Referring Provider Active Start: Se [email or web address] End: February 16, 2025 Dr. Zulay Celis MD Attending physician Active Start: February 16, 2025 End: February 16, 2025 Team Status: Inactive Member Role/Relationship Status Dates [facility] Primary care physician Active Start : March 02, 2025 End: March 02, 2025 [facility] Referring Provider Active Start: Oc er 2024 End: March 02, 2025 Laurie Vail NP, NP-C Attending physician Active Start: March 02, 2025 End: March 02, 2025 Team Status: Inactive Member Role/Relationship Status Dates [facility] Primary care physician Active Start : March 09, 2025 End: March 09, 2025 [facility] Referring Provider Active Start: Oc tober 2024 End: March 09, 2025 Dr. Zulay Celis MD Attending physician Active Start: March 09, 2025 End: March 09, 2025 Team Status: Active Member Role/Relationship Status Dates [facility] Primary care physician Active Start : March 11, 2025 Dr. Zulay Celis MD Attending physician Active Start: March 11, 2025 Dr. Zulay Celis MD Referring Provider Active Start: March 11, 2025 Goals (unrecognized section and content) Goals may be documented in a n alternate sectionGoals may be documented in an alternate sectionGoals may be documented in an alternate sectionGoals may be documented in an alternate sectionGoals may be documented in an alternate sectionGoals may be documented in an alternate sectionGoals may be documented in an alternate sectionGoals may be documented in an alternate sectionGoals may be documented in an alternate sectionGoals may be documented in an alternate sectionGoals may be documented in an alternate sectionGoals may be documented in an alternate sectionGoals may be documented in an alternate sectionGoals may be documented in an alternate section Source Comments (unrecognize d section and content) In the event this informatio n is protected by the Federal Confidentiality of Alcohol and Drug Abuse Patient Records regulations: The Federal rules restrict any use of the information to criminally investigate or prosecute any alcohol or drug abuse patient.[facility] the event this information is protected by the Federal Confidentiality of Alcohol and Drug Abuse Patient Records regulations: The Federal rules restrict any use of the information to criminally investigate or prosecute any alcohol or drug abuse patient.[facility] the event this information is protected by the Federal Confidentiality of Alcohol and Drug Abuse Patient Records regulations: The Federal rules restrict any use of the information to criminally investigate or prosecute any alcohol or drug abuse patient.[facility] Reason for Visit (unrecogniz ed section and content) Reason Comments 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 This clinical summary was aggregated from multiple sources. Caution should be exercised in using it in the provision of clinical care. This summary normalizes information from multiple sources, and as a consequence, information in this document may materially change the coding, format and clinical context of patient data. In addition, data may be omitted in some cases. CLINICAL DECISIONS SHOULD BE BASED ON THE PRIMARY CLINICAL RECORDS. [employer] provides no warranty or guarantee of the accuracy or completeness of information in this document.
== END | disposition home or self-care (01) ==
LOC: CT 12:38
PROVIDERS: Referring Provider Internal Medicine Hematology & Oncology; Visit Provider Internal Medicine Hematology & Oncology
DX: C15.5 Malignant neoplasm of lower third of esophagus (principal); C78.01 Secondary malignant neoplasm of right lung; C78.02 Secondary malignant neoplasm of left lung; C78.7 Secondary malignant neoplasm of liver and intrahepatic bile duct; C77.9 Secondary and unspecified malignant neoplasm of lymph node, unspecified; C25.1 Malignant neoplasm of body of pancreas
CPT/HCPCS: 71260; 74177; Q9967; A4216

== ENCOUNTER 2025-05-04 10:30 | Outpatient (RCR) | payer OTHER, SELFPAY | END 2025-05-26 23:59 | LOC: NS 10:30 | PROVIDERS: Visit Provider Internal Medicine Hematology & Oncology | DX: Z71.3 Dietary counseling and surveillance (principal); C15.5 Malignant neoplasm of lower third of esophagus; R63.4 Abnormal weight loss; R64 Cachexia | CPT/HCPCS: 97803 ==